=== PATIENT | female | born 1965 | race Caucasian/White ===

== ENCOUNTER 2022-04-22 12:33 | Emergency (ER) | payer MEDICAID, SELFPAY ==
[2022-04-22 12:48] VITALS: BP 137/90; PULSE 92; RESP 16; TEMP 36.1; O2SAT 92; BMI 39.7
--- NOTE | 2022-04-22 13:52 | ED_ITS ---
HPI - General Adult General Date Seen: 04/22/22 Chief complaint: Ear/Nose/Throat Problem Stated complaint: Foreign object left ear Time Seen by Provider: 04/22/22 12:54 Source: patient History of Present Illness HPI narrative: Patient is a 56-year-old woman who comes in because of concerns about a retained Q-tip in her left ear. She says she had drainage from the left ear so she was using a Q-tip to clean it out. She felt that the cotton tip of the Q-tip was retained in the ear canal. Her was unable to visualize it or remove it so she presents to have it removed. She says that her left ear has been bothering her for the past couple of weeks, it has felt swollen and uncomfortable, to the point that she has not even been able to put an ear plug in. She has noted some itching as well. No fevers. Related Data Home Medications Medication Instructions Recorded Confirmed aripiprazole 5 mg tablet (Abilify) 5 mg PO DAILY 04/22/22 04/22/22 gabapentin 400 mg capsule 400 mg PO TID 04/22/22 04/22/22 liraglutide 0.6 mg/0.1 mL (18 mg/3 1.8 mg subcut DAILY 04/22/22 04/22/22 mL) subcutaneous pen injector (Connolly 2-Darius) lisinopril 20 mg tablet 10 mg PO DAILY 04/22/22 04/22/22 metformin 500 mg tablet 500 mg PO TID 04/22/22 04/22/22 omeprazole 20 mg capsule,delayed 20 mg PO DAILY 04/22/22 04/22/22 release ondansetron HCl 4 mg tablet 4 mg PO Q6-8H PRN 04/22/22 04/22/22 promethazine 12.5 mg tablet 6.25 mg PO TID PRN 04/22/22 04/22/22 rosuvastatin 10 mg tablet (Crestor) 10 mg PO DAILY 04/22/22 04/22/22 trazodone 50 mg tablet 50 mg PO QHS PRN 04/22/22 04/22/22 venlafaxine 150 mg 150 mg PO DAILY 04/22/22 04/22/22 capsule,extended release 24 hr (Effexor XR) Previous Rx's Medication Instructions Recorded ciprofloxacin 0.3 %-dexamethasone 4 drp otic (ear) BID 7 days #7.5 mL 04/22/22 0.1 % ear drops,suspension (Ciprodex) Allergies Allergy/AdvReac Type Severity Reaction Status Date / Time exenatide [From Bydureon] Allergy Severe Rash Verified 04/22/22 12:42 simvastatin Allergy Severe Hives Verified 04/22/22 12:42 Review of Systems Status of ROS: Reports: 6 or more systems reviewed and unremarkable except as noted in History and below PFSH PFS Social History Smoking Status: Never smoker Do you use any of these nicotine containing products: None How often do you have a drink containing alcohol: never AUDIT-C Alcohol total score: 0 Non-prescribed substance use: denies use service: No Exam Narrative: Exam Narrative: Vital signs reviewed In general, an alert, nontoxic woman. Looks comfortable. Head: Normocephalic, atraumatic. Eyes: Sclera clear. ENT: On the left, the canal is somewhat narrowed, there is some dermatitis noted at the introitus with flaking, scaling skin. The canal itself is empty there is no foreign body. TM is normal. On the right, the canal looks slightly narrowed, the skin is normal. TM is normal. Skin: Warm dry, otherwise normal. Const: Vital Signs, click to edit/add: Vital Signs - 24 hr 04/22/22 12:48 Temperature 97.0 F L Pulse Rate [Pulse Oximeter] 92 Respiratory Rate 16 Blood Pressure [Le ft Upper Arm] 137/90 H Pulse Oximetry 92 Oxygen Delivery Me thod Room Air Documenting provider has reviewed patient's vital signs: yes Course Course Hospital Course: Reassured her that there is no evidence of foreign body. I did do a skin scraping of the scaly skin at the opening of the left external canal, ESVIN was negative for fungal elements. I am going to try treating her with Ciprodex for otitis externa to see if these symptoms improve. If not, ENT followup. Vital Signs Vital signs: Initial Vital Signs Temperature 97.0 F L 04/22/22 12:48 Temperature Source Temporal Artery Scan 04/22/22 12:48 Pulse Rate 92 04/22/22 12:48 Pulse Rhythm 04/22/22 12:48 Pulse Strength 3+ Normal 04/22/22 12:48 Respiratory Rate 16 04/22/22 12:48 Blood Pressure 137/90 H 04/22/22 12:48 Blood Pressure Mean 105 04/22/22 12:48 Blood Pressure Position Sitting 04/22/22 12:48 Pulse Oximetry 92 04/22/22 12:48 Oxygen Delivery Method 04/22/22 12:48 Vital Signs Temperature 97.0 F L 04/22/22 12:48 Pulse Rate 92 04/22/22 12:48 Respiratory Rate 16 04/22/22 12:48 Blood Pressure 137/90 H 04/22/22 12:48 Pulse Oximetry 92 04/22/22 12:48 Oxygen Delivery Method 04/22/22 12:48 Temperature 97.0 F L 04/22/22 12:48 Pulse Rate 92 04/22/22 12:48 Respiratory Rate 16 04/22/22 12:48 Blood Pressure 137/90 H 04/22/22 12:48 Pulse Oximetry 92 04/22/22 12:48 Oxygen Delivery Method 04/22/22 12:48 Medical Decision Making Lab Data Labs: Lab Results 04/22/22 Range/Units 13:22 ESVIN Result No Fungal Elements (None Seen) Discharge Plan Discharge Clinical Impression: Otitis externa Patient Disposition: Home, Self-Care Condition: Stable Instructions: Otitis Externa (DC) Additional Instructions: Ear drops as prescribed. If no improvement, ENT followup. No evidence of foreign body in the canal today. Prescriptions: New ciprofloxacin-dexamethasone [Ciprodex] 0.3-0.1 % drops,suspension 4 drp otic (ear) BID 7 Days Qty: 7.5 0RF No Action gabapentin 400 mg capsule 400 mg PO TID aripiprazole [Abilify] 5 mg tablet 5 mg PO DAILY venlafaxine [Effexor XR] 150 mg capsule,extended release 24hr 150 mg PO DAILY lisinopril 20 mg tablet 10 mg PO DAILY metformin 500 mg tablet 500 mg PO TID rosuvastatin [Crestor] 10 mg tablet 10 mg PO DAILY trazodone 50 mg tablet 50 mg PO QHS PRN omeprazole 20 mg capsule,delayed release(DR/EC) 20 mg PO DAILY ondansetron HCl 4 mg tablet 4 mg PO Q6-8H PRN promethazine 12.5 mg tablet 6.25 mg PO TID PRN Rx Instructions: 3 doses during day; last dose no later than 4 hr before bedtime Victoza 2-Darius 0.6 mg/0.1 mL (18 mg/3 mL) pen injector 1.8 mg subcut DAILY Stand Alone Forms: [employer] Info Instructions
--- NOTE | 2022-04-22 13:53 | PC.NURSE ---
Patient was discharged. [facility] [place] [facility]. Will follow up with ENT if not better. Patient had no further questions and left via ambulatory.
--- OUTSIDE RECORDS SUMMARY | 2022-04-22 13:57 | XMS_ITS | Encounter Summary ---
:1965 Author Organization [employer] Address [address] [place] [address] Care Team Providers Name Role Phone Sonia Pérez PA-C Primary Care Provider Reason for Visit Reason Comments Elbow Problem Encounter Details Date Type Department Care Team Description 02/09/2022 Telemedicine [facility] Sisi Calderon, Instability of left elbow jaylon int (Primary Dx); [address] [facility] OTR/L Aftercare following surgery [place], [place] [address] [address] [facility] [phone] [place] [address] (Wo rk) Social History Tobacco Use Types Packs/Day Years Used Date Smoking Tobacco: Never Smokeless Tobacco: Never Comments: Quit smoking: Alcohol Use Standard Drinks/Week Comments Yes 0 (1 standard drink = 0.6 oz pure Alcoho lic Drinks/day: Amount:1-2 alcohol) drinks; Freq:2-4/Tue ; Sex Assigned at Date Recorded Not on file documented as of this encounter Progress Notes Sisi Calderon OTR/[place] - 02/09/2022 3:00 PM CDT Erroneous Entry documented in this encounter Plan of Treatment Upcoming Encounters Date Type Specialty Care Team Description 06/15/2022 Appointment Orthopedics Vanna Ulloa MD [address] [place] [address] (Wo rk) documented as of this encounter Visit Diagnoses Diagnosis Instability of left elbow joint - Primar y Aftercare following surgery Encounter for other specified aftercare documented in this encounter Care Teams Art History Professor Relationship Specialty Start Date End Date Sonia Pérez PA-C PCP - General Physician Information Systems Security Officer 01/10/17 [address] [facility] [address] [place] [address] documented as of this encounter
--- OUTSIDE RECORDS SUMMARY | 2022-04-22 13:57 | XMS_ITS | Encounter Summary ---
:1965 Author Organization [facility] [facility] [employer] Address [address] [place] [address] Care Team Providers Name Role Phone Sonia Pérez PA-C Primary Care Provider Encounter Details Date Type Department Care Team Description 12/23/2021 Orders Only HIM DEPARTMENT Provider, Deysi [place] [address] Social History Tobacco Use Types Packs/Day Years Used Date Smoking Tobacco: Never Smokeless Tobacco: Never Comments: Quit smoking: Alcohol Use Standard Drinks/Week Comments Yes 0 (1 standard drink = 0.6 oz pure Alcoho lic Drinks/day: Amount:1-2 alcohol) drinks; Freq:- ; Sex Assigned at Date Recorded Not on file documented as of this encounter Plan of Treatment Upcoming Encounters Date Type Specialty Care Team Description 06/15/2022 Appointment Orthopedics Vanna Ulloa MD [address] [place], [place] [id number] (Wo rk) documented as of this encounter Procedures Procedure Name Priority Date/Time Associated Diagnosis Comme nts EKG 12/23/2021 Results for thi s procedure are in the resu lts section. documented in this encounter Results EKG (12/23/2021) Narrative This result has an attachment that is no t available. Interface Provider EKG documented in this encounter Visit Diagnoses Not on filedocumented in this encounter Additional Health Concerns Infection Onset Date Last Indicated Resolved Time COVID19 12/22/2021 12/22/2021 01/02/2022 3:17 AM CDT documented as of this encounter Care Teams Vascular Neurologist Relationship Specialty Start Date End Date Sonia Pérez PA-C PCP - General Physician Rn Peritoneal Dialysis 01/10/17 [address] [facility] [address] [place] [address] documented as of this encounter
--- OUTSIDE RECORDS SUMMARY | 2022-04-22 13:57 | XMS_ITS | Encounter Summary ---
:1965 Author Organization [facility] Address [address] [place] [address] Care Team Providers Name Role Phone Sonia Pérez PA-C Primary Care Provider Reason for Referral Therapies (Routine) - New Request Specialty Diagnoses / Procedures Referred By Contact Refer red To Contact Diagnoses Dislocation of left elbow, subsequent encounter Vanna Ulloa MD [address] [facility] [address] [place] [address] Referral ID Status Reason Start Date Expiration Date Visits V isits Requested Authorized [id number] New Request 12/29/2021 12/29/2022 1 1 Scheduling Instructions Your provider has recommended an appoint ment with [facility]. You can quickly make your appointment online at [email or web address]. You can also call [phone] for help scheduling yo ur appointment. We suggest you call your health insurance company about your cove rage and benefits for this appointment. Procedure/Equipment (Routine) - Incomplete Specialty Diagnoses / Procedures Referred By Contact Refer red To Contact Diagnoses Postop check Vanna Ulloa MD Procedures XR Elbow Lt 3+ Views [address] [facility] [place] [address] Referral ID Status Reason Start Date Expiration Date Visits V isits Requested Authorized [id number] Incomplete 12/29/2021 03/30/2023 1 1 Reason for Visit Reason Comments Post-Op Check Encounter Details Date Type Department Care Team Description 12/29/2021 Office Visit [facility] Vanna Ulloa MD Postop check (Primary Dx); CENTER [address] [place] [address] Dislocation of left elbow, subsequent en counter [address] [place], [place] [id number] (Wo rk) Social History Tobacco Use Types Packs/Day Years Used Date Smoking Tobacco: Never Smokeless Tobacco: Never Comments: Quit smoking: Alcohol Use Standard Drinks/Week Comments Yes 0 (1 standard drink = 0.6 oz pure Alcoho lic Drinks/day: Amount:1-2 alcohol) drinks; Freq:- ; Sex Assigned at Date Recorded Not on file documented as of this encounter Patient Instructions Patient InstructionsAnahi Ellison ATC - 12/29/2021 12:45 PM CDT Thank you for Choosing [facility] for your health care visit today. Dr. Yesenia Ulloa MD Hand & Upper Extremity Surgeon Follow up with [facility] in 7-10 days for suture removal - They will be calling you to schedule that. Medication Requests: Prescriptions are not filled on weekends or on weekdays after 3:00 PM. For all medication refills: Request a refill using [facility] [facility] or contact your pharmacy. What is Know Your Cost? Know Your Cost is a service for patients and patient/members to call and receive personalized cost information and estimates across our care group. The phone number is (COST) Tuesday - Tuesday 8 AM to 5 PM Advanced Imaging Scheduling: To schedule an MRI, Ultrasound, or Image guided injection at [facility] please call [phone]. To schedule an MRI or CT at a [facility] location please call [phone]. [facility] [employer] [address] [place] [address] (Phone) Email: [email or web address] Release of Information: Radiology/Imaging [address] [place] [address] (Phone) Health Information Management [address] [place] [address] (Phone) [employer] documented in this encounter Progress Notes Vanna Ulloa MD - 12/29/2021 12:00 AM CDT NAME: MARCELO BECK CSN: [id number] CLINIC NOTE DATE OF SERVICE: 12/29/2021 : 1965 HISTORY OF PRESENT ILLNESS: Marcelo is seen in routine followup a week after revision fixation of the left elbow dislocation. She says she has been doing well. Not having much pain. Eager to get moving. EXAM: Wound looks great. Stitches remain in place. Her elbow range seems to be a good 50-degree easyarc. There is a fairly minimal seroma or hematoma palpable underneath the skin, certainly improved from last time. X-RAY EXAMINATION: Three views of the left elbow show that the Boom, plate and [place] pin are all in place with no signs of uncoupling. [place] pin remains in appropriate alignment. Elbow joint is well located. PLAN: 1.I think she can start moving in her hinged elbow brace. If she is just at rest, I think locking itat 90 may be helpful. 2.She may remove the brace only for shower. 3.The brace will continue for 6 weeks. 4.She will need her stitches out in approximately a week to 10 days. So she does not have to travel here, we will ask that she get a nurse visit at her [facility] in [place] for this. 5.Hand Therapy today to start with range of motion exercises. We have also discussed not stressing that lateral ulnar collateral ligament repair by keeping the shoulder adducted and if she does abduct,must have her forearm supinated. 6.I will see her again in approximately 1 month for repeat x-rays and likely discontinuation of the hinged elbow brace. VANNA ULLOA MD DCB/AQS /[id number] cc:Sonia Pérez PA-C [address] [address] documented in this encounter Plan of Treatment Upcoming Encounters Date Type Specialty Care Team Description 06/15/2022 Appointment Orthopedics Vanna Ulloa MD [address] [place] [address] (Wo rk) Scheduled Referrals Name Type Priority Associated Diagnoses Order S chedule Hand Therapy Consult Referral Routine Dislocation of left elbow, Ordered: 12/29/2021 subsequent encounter documented as of this encounter Results XR Elbow Lt 3+ Views (12/29/2021 12:51 PM CDT) Anatomical Region Laterality Modality Upper Extremity, Elbow Digital Radiograp hy Specimen (Source) Anatomical Location Collection Method / Collectio n Time Received Time / Laterality Volume Narrative 01/07/2022 5:08 PM CDT Three views of the left elbow show that the Boom plate and [place] pin are all in place with no signs of uncoupling . [place] pin remains in appropriate alignment. ??Elbow joint is well located . ?? Vanna Ulloa MD RAD GD documented in this encounter Visit Diagnoses Diagnosis Postop check - Primary Follow-up examination, following unspeci fied surgery Dislocation of left elbow, subsequent en counter Postop check Follow-up examination, following unspeci fied surgery documented in this encounter Additional Health Concerns Infection Onset Date Last Indicated Resolved Time COVID19 12/22/2021 12/22/2021 01/02/2022 3:17 AM CDT documented as of this encounter Care Teams Implementation Manager Relationship Specialty Start Date End Date Sonia Pérez PA-C PCP - General Physician Stove Carriage Operator 01/10/[address] [place] [address] [address] [place] [address] documented as of this encounter
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
--- OUTSIDE RECORDS SUMMARY | 2022-04-22 13:57 | XMS_ITS | Encounter Summary ---
:1965 Author Organization [facility] Address [address] [place] [address] Care Team Providers Name Role Phone Sonia Pérez PA-C Primary Care Provider Reason for Visit Reason Comments Refill Medication Questions Encounter Details Date Type Department Care Team Description 12/24/2021 Telephone [facility] Vanna Kruse MD Refill; Medication [facility]ENTER [address] [place] [address] Dr Questions [address] [place], [place] [address] [phone] (Wo rk) Social History Tobacco Use Types Packs/Day Years Used Date Smoking Tobacco: Never Smokeless Tobacco: Never Comments: Quit smoking: Alcohol Use Standard Drinks/Week Comments Yes 0 (1 standard drink = 0.6 oz pure Alcoho lic Drinks/day: Amount:1-2 alcohol) drinks; Freq:- ; Sex Assigned at Date Recorded Not on file documented as of this encounter Nursing Notes Silvana Robertson RN - 12/25/2021 2:37 PM CDT PA completed. Medication is approved. Pt informed she can picker and packer medication from pharmacy. Fanta Singleton - 12/25/2021 12:35 PM CDT Has the patient recently had surgery or an injury? Yes. Date of Surgery: December 23, 2021 Type of Surgery: Left revision FIXATION ELBOW dislocation Patient is calling in follow up to message left on 12/24/21 regarding a refill for her hydrocodone-acetaminophen. She was told by her pharmacy that a PA will be needed to get the prescriptions filled. She is requesting a call back to see if that has been completed and if she will be able to get the medication today. She is out of medication and is concerned about having to go through the weekend without it. Maddie Fields - 12/24/2021 9:30 AM CDT Has the patient recently had surgery or an injury? Yes. Date of Surgery: December 23, 2021 Type of Surgery: revision FIXATION ELBOW dislocation (Left: Elbow) How may we help you today? Patient is calling stating that their INS needs a PA for the Hydrocodone before pt is able to picker and packer prescription / please advise Is it okay to leave detailed message on your voicemail? Yes [Manufacturing Process Engineer/Appt Center: If this call is after 3 p.m., communicate to patient: If we are not able to get back to you by the end of the day and your symptoms worsen please contact the Careline] documented in this encounter Plan of Treatment Upcoming Encounters Date Type Specialty Care Team Description 06/15/2022 Appointment Orthopedics Vanna Ulloa MD [address] [facility] [place] [address] (Wo rk) documented as of this encounter Visit Diagnoses Not on filedocumented in this encounter Additional Health Concerns Infection Onset Date Last Indicated Resolved Time COVID19 12/22/2021 12/22/2021 01/02/2022 3:17 AM CDT documented as of this encounter Care Teams Asic Verification Engineer Relationship Specialty Start Date End Date Sonia Pérez PA-C PCP - General Physician Blueprinter 01/10/17 [address] [facility] [address] [place] [address] documented as of this encounter
--- OUTSIDE RECORDS SUMMARY | 2022-04-22 13:57 | XMS_ITS | Encounter Summary ---
:1965 Author Organization [facility] Address [address] [place] [address] Care Team Providers Name Role Phone Sonia Pérez PA-C Primary Care Provider Reason for Visit Reason Comments Elbow Problem Encounter Details Date Type Department Care Team Description 02/23/2022 Telemedicine [facility] Sisi Calderon, Instability of left elbow jaylon int (Primary Dx); [address] [facility] OTR/L Aftercare following surgery [place], [place] [address] [address] [facility] [phone] [place] [address] (Wo rk) Social History Tobacco Use Types Packs/Day Years Used Date Smoking Tobacco: Never Smokeless Tobacco: Never Comments: Quit smoking: Alcohol Use Standard Drinks/Week Comments Yes 0 (1 standard drink = 0.6 oz pure Alcoho lic Drinks/day: Amount:1-2 alcohol) drinks; Freq:2- ; Sex Assigned at Date Recorded Not on file documented as of this encounter Progress Notes Sisi Calderon, OTR/L - 02/23/2022 1:00 PM CDT [facility] Telehealth Progress Note This encounter was completed via telehealth/video per patient request as certain health care needs can be provided without an in-person physical exam. Their hand/occupational therapist will provide further instructions and programming notes via Chroma, an online education and home exercise program platform, [employer], or [employer]. Time service began: 1:08 pm Time service ended: 1:26 pm Patient location: home, backyard Provider location: clinic Mode of transmission: Fancred Education/Handouts: Liz Phelps was provided with a summary of recommendations stemming from this telehealth visit, as well as further instructions and home exercises. Referring Provider: Dr. Ulloa Referring Diagnosis: No diagnosis found. (Left coronoid fracture, left lateral ulnar collateral ligament tear) New orders 01/26/2022: A/PROM, strengthening; d/c hinge brace; OK to start finger and wrist strengthening, 1 pound elbow curls if desired. OK to get into pool for walking NEW ORDERS: (12/29/2021) Hinged brace - okay [...] Patient has a past medical history of Anxiety, Cataract (06/09/2020), Controlled type 2 diabetes mellitus without complication, with long-term current use of insulin (HRC), Depression, Gastroesophagealreflux disease, Hypertension, Irritable bowel syndrome, Migraine, unspecified, without mention [...] to no difficulty in 90 days SUBJECTIVE: 2 months out from revision. Pt states she does exercises 2 times per day. Pt prefers video visits. OBJECTIVE: Pain: mild at rest, moderate with elbow motion. Edema: mild-moderate in digits, wrist/forearm; moderate at elbow AROM: Elbow AROM Right 01/26/2022 Left 12/29/2021 Left 01/05/2022 (measured on computer screen with goniometer) Left 01/12/22 L 01/21/2022 (over video at not a good angle) Left 01/26/2022 In person L 02/23/2022 (via video) Extension/Flexion NT 45/90 50/100 41/96 45/130 36/107 45/125 Supination/Pronation 73/82 Near normal supination /NO pronation allowed. WNL/Not assessed WNL/Not assessed WNL/NT 65/60 NT Near full fist with feeling of tightness. Same for finger extension. Strength: Deferred Sensation: Reported intact Scar: mildly tender, flat, but adherent at central portion TODAY'S TREATMENT INTERVENTION: Therapeutic Exercise CPT 42391 (18 minutes): Reviewed use arm for light daily function. Reviewed, performed and corrected technique for current HEP; Reviewed AROM and PROM and had pt demonstrate exercises, provided cuing and feedback to improve technique. Timed Code Treatment Minutes: 18 Total Treatment Minutes: 18 ASSESSMENT: Pt making minimal progress with video visits. PLAN: Recheck after MD 03/09/22 Pt prefers video visits. Recheck weekly; will see in clinic again in 4 weeks when she returns to seeMD Plan for Next Treatment: Hot pack if arrives early as instructed, 3 point elbow extension splint forsleeping, manual therapy, measure motion, and strengthening as tolerated. monitor motion, review HEPand add options for PROM extension (tablet/watll stretches) as pain allows Frequency/Duration: 1 x week Planned Intervention: AROM, PROM, strength, home exercise program, scar management, edema control, diagnosis education, soft tissue mobilization, modalities: as beneficial, splint/orthosis, adjust patient's splint/orthosis as needed Therapist Signature: Sisi Calderon MOTR/Gina CHT #[id number] Visit # 9 Payor: [facility] / Plan: [facility] PMAP / Product Type: Medicaid / documented in this encounter Plan of Treatment Upcoming Encounters Date Type Specialty Care Team Description 06/15/2022 Appointment Orthopedics Vanna Ulloa MD [address] [facility] [place] [address] (Wo rk) documented as of this encounter Visit Diagnoses Diagnosis Instability of left elbow joint - Primar y Aftercare following surgery Encounter for other specified aftercare documented in this encounter Care Teams Research Management Associate Relationship Specialty Start Date End Date Sonia Pérez PA-C PCP - General Physician Agile Test Lead 01/10/17 16[address] [facility] [address] [place] [id number] documented as of this encounter
--- OUTSIDE RECORDS SUMMARY | 2022-04-22 13:57 | XMS_ITS | Encounter Summary ---
:1965 Author Organization [facility] Address [address] [place] [address] Care Team Providers Name Role Phone Sonia Pérez PA-C Primary Care Provider Reason for Referral Therapies (Routine) - New Request Specialty Diagnoses / Procedures Referred By Contact Refer red To Contact Diagnoses Closed fracture of distal end of left fibula with routine healing, unspecified fracture morphology, subsequent encounter Latanya Wilson MD [address] [facility] [place] [address] Referral ID Status Reason Start Date Expiration Date Visits V isits Requested Authorized [id number] New Request 01/12/2022 01/12/2023 999 999 Scheduling Instructions Your provider has recommended an appoint ment with [facility]. You can quickly make your appointment online at AppwoRx/schedule. You can also call [phone] for help scheduling yo ur appointment. We suggest you call your health insurance company about your cove rage and benefits for this appointment. Procedure/Equipment (Routine) - Incomplete Specialty Diagnoses / Procedures Referred By Contact Refer red To Contact Diagnoses Closed fracture of distal end of left fibula with routine healing, unspecified fracture morphology, subsequent encounter Latanya Wilson MD Procedures XR Ankle Lt 3 Views [facility] [facility] [place] [address] Referral ID Status Reason Start Date Expiration Date Visits V isits Requested Authorized [id number] Incomplete 01/12/2022 04/13/2023 1 1 Reason for Visit Reason Comments Follow-up Left ankle Encounter Details Date Type Department Care Team Description 01/12/2022 Office Visit [facility]opedic Latanya Wilson, Closed fracture of Urgent Care MD distal end of left [address] [facility] [address] [facility] [address] eisenberg with routine [place], [place] [address] [place], [place] healing, unspecified [phone] fracture morphology, (Wo rk) subsequent encounter (Primary Dx) Social History Tobacco Use Types Packs/Day Years Used Date Smoking Tobacco: Never Smokeless Tobacco: Never Comments: Quit smoking: Alcohol Use Standard Drinks/Week Comments Yes 0 (1 standard drink = 0.6 oz pure Alcoho lic Drinks/day: Amount:1-2 alcohol) drinks; Freq:- ; Sex Assigned at Date Recorded Not on file documented as of this encounter Last Filed Vital Signs Vital Sign Reading Time Taken Comments Blood Pressure - - Pulse - - Temperature 36 ??C (96.8 ??F) 01/12/2022 12:06 PM CDT Respiratory Rate - - Oxygen Saturation - - Inhaled Oxygen Concentration - - Weight - - Height - - Body Mass Index - - documented in this encounter Patient Instructions Patient InstructionsAlthea Shields - 01/12/2022 12:[address] Latanya Wilson MD Sports & Orthopaedic Medicine [facility] [place] [facility] Nurse Line: [phone] Please contact Orthopedic Urgent Care line for all requests and questions. Medication Requests: Prescriptions are not filled on Weekends or on Weekdays after 3:00PM For all medication refills: Request a refill using MyChart or contact your Pharmacy To schedule appointments: [phone] Paperwork Requests: FMLA or disability paperwork can be faxed to: [phone] Medical records: [phone] (option 4) [facility] Worker's Compensation Services E-mail Address: [email or web address] Left distal fibula fracture - Discontinue boot - Brace - Physical Therapy documented in this encounter Progress Notes Latanya Wilson MD - 01/12/2022 12:00 AM CDT NAME: MARCELO BECK CSN: [id number] CLINIC NOTE DATE OF SERVICE: 01/12/2022 : 1965 Marcelo Beck here for followup of her distal fibular fracture. Was last seen by myself on 12/22/2021, and has been in a boot. She denies any pain since our last visit. OBJECTIVE: Left ankle nontender to palpation. Mild lateral swelling, plantar and dorsiflexion, inversion, eversion without pain. Left ankle x-rays independently reviewed, show further fracture healing seen at thedistal fibular fracture. Ankle mortise intact. ASSESSMENT: Left distal fibular fracture 9 weeks status post injury with clinical and radiographic healing. PLAN: We will discontinue the boot. She has an upcoming vacation and so we will have her use an ankle brace for support during that time. I encouraged physical therapy for strength and range of motion going forward. She will follow up as needed. LATANYA WILSON MD SAB/AQS /[id number] documented in this encounter Plan of Treatment Upcoming Encounters Date Type Specialty Care Team Description 06/15/2022 Appointment Orthopedics Vanna Ulloa MD [address] [place] [address] (Wo rk) Scheduled Referrals Name Type Priority Associated Diagnoses Order S chedule Physical Therapy Referral Routine Closed fracture of dista l end Ordered: 01/12/2022 of left fibula with routine healing, unspecified fractur e morphology, subsequent encounter documented as of this encounter Results XR Ankle Lt 3 Views (01/12/2022 12:13 PM CDT) Anatomical Region Laterality Modality Lower Extremity, Ankle, Foot & Ankle Dig ital Radiography Specimen (Source) Anatomical Collection Method Collection Time Re ceived Time Location / / Volume Laterality 01/12/2022 12:05 PM CDT Impressions 01/12/2022 12:29 PM CDT COMPARISON: ??12/22/2021 FINDINGS: ??Left ankle 3 views. There is a healing comminuted intra-articular fracture of the distal fibula which is in stable position and alignment. Callus formation is increased. No new fractures are visualized. The ankle mortise is symmet shell. Remainder of the findings are not significantly changed. Procedure Note Travis Trivedi MD - 01/12/2022Formatti ng of this note might be different from the original. IMPRESSION COMPARISON: 12/22/2021 FINDINGS: Left ankle 3 views. There is a healing comminuted intra-articular fracture of the distal fibula which is in stable position and alignment. Callus formation is increased. No new fractures are visualized. The ankle mortise is symmetr ic. Remainder of the findings are not significantly changed. Latanya Wilson MD RAD GD documented in this encounter Visit Diagnoses Diagnosis Closed fracture of distal end of left fi bula with routine healing, unspecified fracture morphology, subsequent encounte r - Primary Closed fracture of distal end of left fi bula with routine healing, unspecified fracture morphology, subsequent encounte r documented in this encounter Care Teams Leasing Manager Relationship Specialty Start Date End Date Sonia Pérez PA-C PCP - General Physician Health Counselor 01/10/17 16[address] [facility] [address] [place] [address] documented as of this encounter
--- OUTSIDE RECORDS SUMMARY | 2022-04-22 13:57 | XMS_ITS | Encounter Summary ---
:1965 Author Organization [facility] Address [address] [place] [address] Care Team Providers Name Role Phone Sonia Pérez PA-C Primary Care Provider Reason for Visit Reason Comments Elbow Problem Encounter Details Date Type Department Care Team Description 01/05/2022 Telemedicine [facility] Kolby Strange, Aftercare following surgery (Primary Dx); [facility] Instability of left elbow joint [place], [place] [address] [address] [facility] [phone] [place] [address] (Wo rk) Social History Tobacco Use Types Packs/Day Years Used Date Smoking Tobacco: Never Smokeless Tobacco: Never Comments: Quit smoking: Alcohol Use Standard Drinks/Week Comments Yes 0 (1 standard drink = 0.6 oz pure Alcoho lic Drinks/day: Amount:1-2 alcohol) drinks; Freq:2- ; Sex Assigned at Date Recorded Not on file documented as of this encounter Progress Notes Kolby Strange, OTR/L - 01/05/2022 2:00 PM CDT Hand Occupational Therapy Video Visit/Progress Note Insurance: Payor: [employer] / Plan: CARE PMAP / Product Type: Medicaid / Referring Provider: Referring Diagnosis: 1. Aftercare following surgery 2. Instability of left elbow joint (Left coronoid fracture, left lateral ulnar collateral [...] no difficulty in 90 days SUBJECTIVE: Pt was seen today for hand therapy follow up via video visit, per her request. Patient is 13 days s/p surgery. She reports removing HEB only for bathing and reports compliance with her HEP of AROM in her HEB. She does report that brace is limiting her elbow flexion and she feels like she cannot flex any further (than ~100 degrees) when in HEB. OBJECTIVE: Pain: None reported today. Edema: Digits through the elbow after revision has moderate plus edema. Circumferential Measurement: (in cm) Date 12/04/21 12/04/21 Right Left 2 in. proximal.to elbow 34 34.0 Elbow crease 29 33.0 2 in. distal to elbow 30 33.0 AROM: Elbow AROM Right 12/29/2021 Left 12/29/2021 Left 01/05/2022 (measured on computer screen with goniometer) Extension/Flexion NT 45/90 50/100 Supination/Pronation NT Near normal supination /NO pronation allowed. WNL/Not assessed (NO pronationper MD) Near full fist with feeling of tightness. Same for finger extension. Thumb opposition at this time is to tip of small with effort. Strength: Deferred Sensation: Reported intact Wound/Incision: Sutures still present, pt to see RN near her home for suture removal 01/07/2022 Scar: to be assessed TODAY'S TREATMENT INTERVENTION: Therapeutic Exercise CPT 20729 (25 minutes): New objective measures taken, see above. [...] no shoulder abduction and no forearm pronation. Splint/Orthotic Fabrication: Left: elbow ossur hinged elbow orthosis (size universal with adjustments). Wearing will be per MD's specification (see orders above) . Timed Code Treatment Minutes: 25 Total Treatment Minutes: 25 ASSESSMENT: - patient demonstrated a good understanding [...] barriers to learning. PLAN: Prefers video visits, but will be seen in clinic for visit next week due to having MD appt here at [facility]. Plan for Next Treatment: assess response to treatment, check AROM, soft tissue mobilization, add scar management, edema control, review home exercise program, check splint/orthosis fit, review AROM forelbow flext/ext out of HEB. Frequency/Duration: 1 x [...] with any questions or concerns. Therapist Signature: JENNYFER Liriano, OTR/L #[id number] Visit # 4 [facility] / Plan: [facility] PMAP / Product Type: Medicaid / documented in this encounter Plan of Treatment Upcoming Encounters Date Type Specialty Care Team Description 06/15/2022 Appointment Orthopedics Vanna Ulloa MD [address] [place], [place] [address] (Wo rk) documented as of this encounter Visit Diagnoses Diagnosis Aftercare following surgery - Primary Encounter for other specified aftercare Instability of left elbow joint documented in this encounter Care Teams Nurse Midwife Relationship Specialty Start Date End Date Sonia Pérez PA-C PCP - General Physician Audiometrist 01/10/17 1601 [facility] [address] [place] [address] documented as of this encounter
--- OUTSIDE RECORDS SUMMARY | 2022-04-22 13:57 | XMS_ITS | Encounter Summary ---
:1965 Author Organization [facility] Address [address] [place] [address] Care Team Providers Name Role Phone Sonia Pérez PA-C Primary Care Provider Reason for Visit Procedure/Equipment (Routine) - Incomplete Specialty Diagnoses / Procedures Referred By Contact Refer red To Contact Diagnoses Postop check Vanna Ulloa MD Procedures XR Elbow Lt 3+ Views [address] [facility] [place] [address] 1 Referral ID Status Reason Start Date Expiration Date Visits V isits Requested Authorized [id number] Incomplete 12/29/2021 03/30/2023 1 1 Encounter Details Date Type Department Care Team Description 12/29/2021 Ancillary Procedure [facility] Radiology Vanna Ulloa MD Postop check [address] [facility] [address] [facility] [place] [address] [place] [phone] (Wo rk) Social History Tobacco Use Types [...] 06/15/2022 Appointment Orthopedics Vanna Ulloa MD [address] [facility] [place] [address] (Wo rk) documented as of this encounter Procedures Procedure Name Priority Date/Time Associated Diagnosis Comme nts XR ELBOW LT 3+ Routine 12/29/2021 12:51 PM Postop check Result s for this VIEWS CDT procedure are i n the results section. documented in this encounter Results XR Elbow Lt 3+ Views (12/29/2021 12:51 PM CDT) Anatomical Region Laterality Modality Upper Extremity, Elbow Digital Radiograp hy Specimen (Source) Anatomical Location Collection Method / Collectio n Time Received Time / Laterality Volume Narrative 01/07/2022 5:08 PM CDT Three views of the left elbow show that the Boom plate and [place] pin are all in place with no signs of uncoupling . [place] pin remains in appropriate alignment. ??Elbow joint is well located . ?? Vanna Ulloa MD RAD GD documented in this encounter Visit Diagnoses Diagnosis Postop check Follow-up examination, following unspeci fied surgery documented in this encounter Additional Health Concerns Infection Onset Date Last Indicated Resolved Time COVID19 12/22/2021 12/22/2021 01/02/2022 3:17 AM CDT documented as of this encounter Care Teams Machine Heel Sprayer Relationship Specialty Start Date End Date Sonia Pérez PA-C PCP - General Physician Elevator Installer 01/10/17 [address] [facility] [address] [place] [address] documented as of this encounter
--- OUTSIDE RECORDS SUMMARY | 2022-04-22 13:57 | XMS_ITS | Encounter Summary ---
:1965 Author Organization [facility] Address [address] [place] [address] Care Team Providers Name Role Phone Sonia Pérez PA-C Primary Care Provider Reason for Visit Reason Comments Elbow Problem Encounter Details Date Type Department Care Team Description 02/10/2022 Telemedicine [facility] Sisi Calderon, Instability of left elbow jaylon int (Primary Dx); [address] [facility] OTR/L Aftercare following surgery [place], [place] [address] 8100 [facility] [phone] [place] [address] (Wo rk) Social History Tobacco Use Types Packs/Day Years Used Date Smoking Tobacco: Never Smokeless Tobacco: Never Comments: Quit smoking: Alcohol Use Standard Drinks/Week Comments Yes 0 (1 standard drink = 0.6 oz pure Alcoho lic Drinks/day: Amount:1-2 alcohol) drinks; Freq:- ; Sex Assigned at Date Recorded Not on file documented as of this encounter Progress Notes Sisi Calderon, OTR/L - 02/10/2022 3:30 PM CDT [facility] Occupational Therapy Telehealth Progress Note This encounter was completed via telehealth/video per patient request as certain health care needs can be provided without an in-person physical exam. Their hand/occupational therapist will provide further instructions and programming notes via [employer], an online education and home exercise program platform, [employer], or [employer]. Time service began: 3:34 pm Time service ended: 3:46 pm Patient location: home, backyard Provider location: clinic Mode of transmission: Web[employer] Education/Handouts: Liz Phelps was provided with a [...] to no difficulty in 90 days SUBJECTIVE: 6 weeks out from revision. Pt states she can wash her hair and has trouble donning a bra. OBJECTIVE: Pain: mild at rest, moderate with elbow motion. Edema: mild-moderate in digits, wrist/forearm; moderate at elbow AROM: Elbow AROM Right 01/26/2022 Left 12/29/2021 Left 01/05/2022 (measured on computer screen with goniometer) Left 01/12/22 L 01/21/2022 (over video at not a good angle) Left 01/26/2022 In person Extension/Flexion NT 45/90 50/100 41/96 45/130 36/107 Supination/Pronation 73/82 Near normal supination /NO pronation allowed. WNL/Not assessed WNL/Not assessed WNL/NT 65/60 Near full fist with feeling of tightness. Same for finger extension. Strength: Deferred Sensation: Reported intact Scar: mildly tender, flat, but adherent at central portion TODAY'S TREATMENT INTERVENTION: Therapeutic Exercise CPT 39343 (11 minutes): Reviewed use arm for light daily function. Reviewed, performed and corrected technique for current HEP; Instructed in and performed full AROM for pronation, as well as combined elbow extension and pronation; reviewed PROM for elbow flexion & extension; gravity- assisted positioning for gentle prolonged extension stretches. Reviewed scar cares. Timed Code Treatment Minutes: 11 Total Treatment Minutes: 11 ASSESSMENT: Limited ability to measure and correct HEP over video, but able to discuss progression of activities. PLAN: Pt prefers video visits. Recheck weekly; will see in clinic again in 4 weeks when she returns to see MD Plan for Next Treatment: monitor motion, review HEP and add options for PROM extension (tablet/watllstretches) as pain allows Frequency/Duration: 1 x week Planned Intervention: AROM, PROM, strength, home exercise program, scar management, edema control, diagnosis education, soft tissue mobilization, modalities: as beneficial, splint/orthosis, adjust patient's splint/orthosis as needed Therapist Signature: ANAY Woods/Gina CHT #[id number] Visit # 8 [facility] / Plan: CARE PMAP / Product Type: Medicaid / documented in this encounter Plan of Treatment Upcoming Encounters Date Type Specialty Care Team Description 06/15/2022 Appointment Orthopedics Vanna Ulloa MD [address] [facility] [place] [address] (Wo rk) documented as of this encounter Visit Diagnoses Diagnosis Instability of left elbow joint - Primar y Aftercare following surgery Encounter for other specified aftercare documented in this encounter Care Teams Video Systems Engineer Relationship Specialty Start Date End Date Sonia Pérez PA-C PCP - General Physician Hair Dryer 01/10/17 1601 [facility] [address] [place] [address] documented as of this encounter
--- OUTSIDE RECORDS SUMMARY | 2022-04-22 13:57 | XMS_ITS | Encounter Summary ---
:1965 [facility] Address [address] [place] [address] Care Team Providers Name Role Phone Sonia Pérez PA-C Primary Care Provider Reason for Visit Procedure/Equipment (Routine) - Incomplete Specialty Diagnoses / Procedures Referred By Contact Refer red To Contact Diagnoses Closed fracture of distal end of left fibula with routine healing, unspecified fracture morphology, subsequent encounter Cain Albrecht MD Procedures XR Ankle Lt 3 Views [address] [facility] [address] [place] [address] Referral ID Status Reason Start Date Expiration Date Visits V isits Requested Authorized [id number] Incomplete 01/12/2022 04/13/2023 1 1 Encounter Details Date Type Department Care Team Description 01/12/2022 Ancillary [facility] Cain Albrecht, Closed fracture of Procedure [address] distal end of left [address] [facility] [address] with routine [place] [facility], [address] unspecified [phone] fracture (Work) morphology, subsequen t encounter Social History Tobacco Use Types Packs/Day Years [...] 06/15/2022 Appointment Orthopedics Vanna Ulloa MD 8[address] [facility] [place] [address] (Wo rk) documented as of this encounter Procedures Procedure Name Priority Date/Time Associated Diagnosis Comme nts XR ANKLE LT 3 VIEWS Routine 01/12/2022 12:13 PM Closed fractur e of Results for this CDT distal end of left procedure are in fibula with routine the resu lts healing, unspecified section . fracture morphology, subsequent encounter documented in this encounter Results XR Ankle Lt 3 [...] of the findings are not significantly changed. Cain Albrecht MD RAD GD documented in this encounter Visit Diagnoses Diagnosis Closed fracture of distal end of left fi bula with routine healing, unspecified fracture morphology, subsequent encounte r documented in this encounter Care Teams Clinical Trial Data Manager Relationship Specialty Start Date End Date Sonia Pérez PA-C PCP - General Physician Heating Mechanic 01/10/17 1601 [facility] [address] [place] [address] documented as of this encounter
--- OUTSIDE RECORDS SUMMARY | 2022-04-22 13:57 | XMS_ITS | Encounter Summary ---
:1965 Author Organization [facility] Address [address] [place] [address] Care Team Providers Name Role Phone Sonia Pérez PA-C Primary Care Provider Reason for Visit Procedure/Equipment (Routine) - Incomplete Specialty Diagnoses / Procedures Referred By Contact Refer red To Contact Diagnoses Surgery, elective Vanna Ulloa MD Procedures CLYDE Fluoroscopy Up To 1 Hour [address] [place], [place] [address] Referral ID Status Reason Start Date Expiration Date Visits V isits Requested Authorized [id number] Incomplete 12/22/2021 03/23/2023 1 1 Encounter Details Date Type Department Care Team Description 12/23/2021 Ancillary Procedure [facility] Vanna Ulloa S urgery, elective Surgery Center 8[address] [facility] [address] [place] [address] [phone] Social History Tobacco Use Types Packs/Day Years [...] 06/15/2022 Appointment Orthopedics Vanna Ulloa MD [address] [facility] [place] [address] (Wo rk) documented as of this encounter Procedures Procedure Name Priority Date/Time Associated Comments Diagnosis CLYDE FLUOROSCOPY UP TO Routine 12/23/2021 1:53 PM Surgery, elec tive Results for this 1 HOUR CDT procedure are i n the results section. documented in this encounter Results CLYDE Fluoroscopy Up To 1 Hour (12/23/2021 1:53 PM CDT) Anatomical Region Laterality Modality Radiographic Imaging Specimen (Source) Anatomical Location Collection Method / Collectio n Time Received Time / Laterality Volume Narrative 12/23/2021 1:54 PM CDT These images were obtained during a surg ical procedure. Vnana Ulloa MD RAD NON-REPORTABLES documented in this encounter Visit Diagnoses Diagnosis Surgery, elective Unspecified elective surgery for purpose s other than remedying health states documented in this encounter Additional Health Concerns Infection Onset Date Last Indicated Resolved Time COVID19 12/22/2021 12/22/2021 01/02/2022 3:17 AM CDT documented as of this encounter Care Teams Headliner Installer Relationship Specialty Start Date End Date Sonia Pérez PA-C PCP - General Physician Aquatic Physiotherapist 01/10/17 1601 [facility] [address] [place] [address] documented as of this encounter
--- OUTSIDE RECORDS SUMMARY | 2022-04-22 13:57 | XMS_ITS | Encounter Summary ---
:1965 Author Organization [facility] Address [address] [place] [address] Care Team Providers Name Role Phone Sonia Pérez PA-C Primary Care Provider Reason for Visit (Routine) - Incomplete Specialty Diagnoses / Procedures Referred By Contact Refer red To Contact Procedures Gwyn Padilla MD US Anesthesia Guided Block [address] [address] [place] [address] Referral ID Status Reason Start Date Expiration Date Visits V isits Requested Authorized [id number] Incomplete 12/23/2021 03/24/2023 1 1 Encounter Details Date Type Department Care Team Description 12/23/2021 Ancillary Procedure [facility] [address] [place] [address] Social History Tobacco Use Types Packs/Day Years Used Date Smoking Tobacco: Never Smokeless Tobacco: Never Comments: Quit smoking: Alcohol Use Standard Drinks/Week Comments Yes 0 (1 standard drink = 0.6 oz pure Alcoho lic Drinks/day: Amount:1-2 alcohol) drinks; Freq:2-/Tue ; Sex Assigned at Date Recorded Not on file documented as of this encounter Plan of Treatment Upcoming Encounters Date Type Specialty Care Team Description 06/15/2022 Appointment Orthopedics Vanna Ulloa MD [address] [place], [place] [address] (Wo rk) documented as of this encounter Procedures Procedure Name Priority Date/Time Associated Comments Diagnosis US ANESTHESIA GUIDED STAT 12/23/2021 10:17 AM Results for this BLOCK CDT procedure are i n the results section. documented in this encounter Results US Anesthesia Guided Block (12/23/2021 10:17 AM CDT) Anatomical Region Laterality Modality Ultrasound Specimen (Source) Anatomical Location Collection Method / Collectio n Time Received Time / Laterality Volume Narrative 12/23/2021 10:17 AM CDT If an Anesthesia block was performed please see the Anesthesia encounter for documentation. ??This procedure was performed and interpreted by the performing provider. ?? Gwyn Padilla MD [facility] US documented in this encounter Visit Diagnoses Not on filedocumented in this encounter Additional Health Concerns Infection Onset Date Last Indicated Resolved Time COVID19 12/22/2021 12/22/2021 01/02/2022 3:17 AM CDT documented as of this encounter Care Teams Director Of Psychiatry Relationship Specialty Start Date End Date Sonia Pérez PA-C PCP - General Physician Dye Operator 01/10/[address] [address] documented as of this encounter
--- OUTSIDE RECORDS SUMMARY | 2022-04-22 13:57 | XMS_ITS | Clinical Summary ---
:1965 Author Organization [facility] Address [address] [place] [address] Care Team Providers Name Role Phone Sonia Pérez PA-C Primary Care Provider Source Comments You are receiving this document as you are listed as the primary care provider,follow-up provider, or the patient has been referred to you for consultation.This is in compliance with the Medicare and Medicaid EHR Incentive Program,which states Providers who transition their patient to another setting of careor provider of care or refers their patient to another provider of care shouldprovide summarycare record for each transition of care or referral. [place] Allergies Active Allergy Reactions Severity Noted Date Comments Atorvastatin 09/22/2016 Other reaction( s): Myalgia Hydromorphone Other, see comments 12/11/2021 Nausea/ Vomiting. Pt stated was admitted to hospital after taking Di laudid due to uncontrollab le N/V Dulaglutide Gastrointestinal, 11/20/2018 Nausea Exenatide Other, see comments Medium 08/04/2015 PN: loca l site reaction of skin breakdown, severe itching, and pa in. Medications Medication Sig Dispensed Refills Start Date End Date Status omeprazole ([facility] Take 1 tablet by 90 3 08/18/2010 Active OMEPRAZOLE) 20 MG mouth daily (every enteric coated tablet 24 hours). LW Comment:flex spending account LW Addl Instr:Indicated for: Acid Reflux Multiple Take 1 tablet by 100 0 04/25/2009 Ac tive Vitamins-Minerals mouth daily (every (MULTIVITAMIN OR) 24 hours). omega-3 fatty acids daily (every 24 0 04/25/2009 Active (MAXEPA,FISHOIL) 1000 hours). MG capsule aspirin EC 81 MG Take 1 tablet by 100 tablet 13 05/07/2013 Active enteric coated mouth daily (every tabletIndications: 24 hours). Chronic rhinitis blood glucose test Use 1 strip as 100 strip 6 12/02/2014 Active stripIndications: instructed 3 times Diabetes type 2, daily. uncontrolled lancets (ACCU-CHEK Use as instructed 3 100 each 0 12/03/2014 Active SOFTCLIX) times daily. ACCU-CHEK FARTUN PLUS Use as instructed 1 kit 0 12/03/2014 Active meter as needed for High Blood Sugar. cyclobenzaprine Take 1 tablet by 30 tablet 0 11/24/2015 Active (FLEXERIL) 5 MG mouth 3 times daily tabletIndications: as needed for Rib contusion, right, Muscle spasms. initial encounter metFORMIN (GLUCOPHAGE Take 3 tablets by 270 tablet 1 6 Active XR) 500 MG 24 hour mouth daily (every release 24 hours). tabletIndications: Type 2 diabetes mellitus, controlled (HRC) dulaglutide Inject 1 Pen 10 Pen 0 02/03/2016 Acti ve (TRULICITY) 0.75 subcutaneously once MG/0.5ML injection a week. penIndications: Type 2 diabetes mellitus, controlled (HRC) gabapentin Take 400 mg in the 270 Cap 3 03/15/2016 Active (NEURONTIN) 400 MG morning and 800 mg capsuleIndications: in the evening. Peripheral polyneuropathy TRULICITY 0.75 INJECT 0.75MG 2 mL 2 05/06/2016 Active MG/0.5ML SOPN SUBCUTANEOUSLY ONCE A WEEK lisinopril (ZESTRIL) TAKE 1 TABLET BY 90 Tab 1 07/10/2016 Active 20 MG tablet MOUTH EVERY DAY insulin pen needle Inject 200 Each 3 07/21/2016 Active (BD PEN NEEDLE JUHI subcutaneously two U/F) 32G X 4 MM times a day. ACCU-CHEK FARTUN PLUS Use to test three 300 Strip 3 08/03/2016 Active test strip times daily before meals. Code E11.9 DULoxetine (CYMBALTA) Take 30 mg by 0 10/13/2016 Active 30 MG capsule mouth. temazepam (RESTORIL) Take 15 mg by 0 10/05/2016 Active 15 MG capsule mouth. rosuvastatin Take 20 mg by mouth 0 09/22/2016 Active (CRESTOR) 20 MG daily at bedtime. tablet LORazepam (ATIVAN) Take 0.5 mg by 0 10/05/2016 Active 0.5 MG tablet mouth. desvenlafaxine Take 100 mg by 0 10/05/2016 Active (PRISTIQ) 50 MG 24 mouth. hour release tablet eszopiclone (LUNESTA) Take by mouth daily 0 Active 2 MG tablet at bedtime. fluticasone (FLONASE) SHAKE LIQUID AND 48 g 0 04/05/2017 Active 50 MCG/ACT nasal USE 2 SPRAYS IN solutionIndications: EACH NOSTRIL DAILY Chronic rhinitis ALBUterol sulfate HFA Inhale 1-2 Puffs. 0 09/25/2018 Active 108 (90 Base) MCG/ACT inhaler Vzvmoym-Gvipbfwym-Wkg Take 1 Tablet by 0 02/15/2017 Active c 333-133-5 MG mouth. Coenzyme Q10 100 MG Take 100 mg by 0 12/01/2016 Active mouth. folic acid 1 MG Take 1 mg by mouth. 0 12/01/2016 Active tablet levonorgestrel 1 Device by 0 11/03/2016 Ac tive (MIRENA) 20 MCG/24HR Intrauterine route. IUD meclizine (ANTIVERT) Take 12.5 mg by 0 04/23/2019 Active 12.5 MG tablet mouth. metoclopramide Take 10 mg by 0 A ctive (REGLAN) 10 MG tablet mouth. xuwrh-1-dilm ethyl Take 1 g by mouth. 0 04/25/2009 Active esters (LOVAZA) [address] 4 mg under 0 04/23/2019 Active (ZOFRAN-ODT) 4 MG tongue. disintegrating tablet prochlorperazine Take 5-10 mg by 0 04/19/2019 Active (COMPAZINE) 5 MG mouth. tablet promethazine Take 1 Tablet by 0 04/27/2018 Active (PHENERGAN) 25 MG mouth. tablet raNITIdine (ZANTAC) Take 75 mg by 0 Active 75 MG tablet mouth. LANTUS SOLOSTAR 100 Inject 0 06/10/2021 Active UNIT/ML pen subcutaneously. bisacodyl (DULCOLAX) Take 1 Tablet (5 30 Tablet 0 11/28/2021 Active 5 MG enteric coated mg) by mouth daily tablet as needed for Constipation (pain medication can cause constipation). VICTOZA 18 MG/3ML Inject 1.8 mg 0 11/22/2021 Active SOPN injection subcutaneously daily. acetaminophen Take 1 Tablet (500 100 Tablet 11 12/14/2021 Active (TYLENOL) 500 MG mg) by mouth every tablet 4 hours as needed for Pain (Mild Pain). Maximum acetaminophen dose is 4000 mg in 24 hours ibuprofen (MOTRIN) Take 2 Tablets (400 100 Tablet 0 12/14/2021 Active 200 MG tablet mg) by mouth every 6 hours as needed for Pain (Mild Pain). This may be safely mixed with the prescription pain medications (oxycodone, hydrocodone or tramadol.)?? This may also be safely mixed with acetaminophen. hydrOXYzine HCl Take 1 Tablet (25 15 Tablet 0 12/14/2021 Active (ATARAX) 25 MG tablet mg) by mouth every 6 hours as needed for Itching, Anxiety or Pain. melatonin 3 MG tablet Take 1 Tablet (3 100 Tablet 0 12/14/2021 Active mg) by mouth at bedtime as needed for Insomnia. HYDROcodone-acetamino Take 1-2 Tablets by 15 Tablet 0 12/24/19 22 Active phen (NORCO) 5-325 MG mouth every 4 hours tablet as needed for Pain. Maximum acetaminophen dose is 4000 mg in 24 hours. Active Problems Patient Care Coordination Note Formatting of this note might be differe nt from the original. Opinion Polls Survey Worker: Tran [facility] [phone] Care coordination focus: T2DM self-manag ement and medication adjustment, financial resources Living situation: lives at home with spo use and children Important notes: daughter is disabled Problem Noted Date Left elbow pain 12/22/2021 Overview: Added automatically from request for grecia riojas [id number] Dislocation of left elbow 11/24/2021 Overview: Added automatically from request for grecia riojas [id number] Menorrhagia with regular cycle 03/17/2016 Mixed anxiety depressive disorder 07/30/2015 Morbid obesity with BMI of 40.0-44.9, adult 04/18/2014 Controlled type 2 diabetes mellitus without complicati on, with long-term 04/17/2014 current use of insulin GERD (gastroesophageal reflux disease) 03/19/2013 Essential hypertension 08/18/2010 Overview: Hypertension Major depressive disorder, single episode 10/15/2005 Overview: LW Onset: ; Depression Major 1episode NOS Chronic rhinitis 08/03/2005 Overview: Rhinitis Chronic Obstructive sleep apnea 08/03/2005 Hyperlipidemia 02/11/2004 Esophageal reflux 02/11/2004 Overview: Gastroesophageal Reflux Disease Resolved Problems Problem Noted Date Resolved Date Type 2 diabetes mellitus, controlled 05/28/201506/2015 Health correction, active care coordination 02/04/2015 10/30/2018 Overview: Opinion Polls Survey Worker: Tran Rodriguez [facility] [phone] Care coordination focus: T2DM self-manag ement and medication adjustment, financial resources Living situation: lives at home with spo use and children Important notes: daughter is disabled See care plan under Chart Review > Misc Reports > [facility] PLAN REPORT Closed left fibular fracture 12/03/2013 02/19/2014 Type 2 diabetes mellitus, controlled 08/18/201007/2013 Overview: DM Type2 Dysplasia of cervix (uteri) 02/11/2004 02/19/2014 Overview: LW Modifier: cone biopsy 06-12-2003 LW Onset: 2002 ; AJ Squamous Intraepith Lesion Cervix Encounters Date Type Specialty Care Team Description 03/11/2022 Ancillary Procedure Radiology PN Vanna Ulloa MD S urgery follow-up 03/11/2022 Office Visit Orthopedics Vanna Ulloa MD Surgery follow-up (Primary Dx); Dislocation of left elbow, subsequent encounter 03/09/2022 Office Visit Hand Therapy Sisi Calderon, Instability of left elbow joint (Primary Dx); OTR/L Aftercare follo wing surgery 02/23/2022 Telemedicine Hand Therapy Sisi Calderon, Instability of left elbow joint (Primary Dx); OTR/L Aftercare follo wing surgery 02/10/2022 Telemedicine Hand Therapy Zerka, Sisi M, Instability of left elbow joint (Primary Dx); OTR/L Aftercare follo wing surgery 02/09/2022 Telemedicine Hand Therapy Sisi Calderon, Instability of left elbow joint (Primary Dx); OTR/L Aftercare follo wing surgery 01/26/2022 Office Visit Hand Therapy Bernardino Rand Elizabeth, OTR/L Instabil ity of left elbow joint (Primary Dx); Aftercare follo wing surgery 01/26/2022 Ancillary Procedure Radiology PN Vanna Ulloa MD P ostop check 01/26/2022 Office Visit Orthopedics Vanna Ulloa MD Postop charles lee (Primary Dx); Dislocation of left elbow, subsequent encounter 01/21/2022 Telemedicine Hand Therapy Sisi Calderon, Instability of left elbow joint (Primary Dx); OTR/L Aftercare follo wing surgery from Last 3 Months Immunizations Name Administration Dates Next Due Flu Vac Preserv Free (3+yrs) 02/18/2012, 02/05/2009, 008, 04/28/2006, 02/13/2005, 02/11/2004 Influenza IIV4 (Quadrivalent) 0.5mL 03/15/2016, 02/22/2015, 02/19/2014, (15591) 05/07/2013 Influenza, Unspecified Formulation 02/13/2003 PPSV23 (Pneumovax) 02/05/2009 TB Skin Test (PPD) 09/13/2006 TDAP (ADACEL) 11/04/2006 Td 01/21/1997 Family History Medical History Relation Name Comments Cancer Mother Diabetes Mother Type 2 Diabetes Maternal Grandfather Type 2 Alzheimer's Maternal Grandmother Heart Disease Paternal Grandfather Cancer Paternal Grandmother Labor Paternal Grandmother Amblyopia/Strabismus Negative Family History Blindness Negative Family History Cancer, Breast Negative Family History Cancer, Ovary Negative Family History Cataract Negative Family History Glaucoma Negative Family History Hypertension Negative Family History Macular Degeneration Negative Family History Retinal Detachment Negative Family History Stroke Negative Family History Thyroid Disorder Negative Family History Relation Name Status Comments Father Alive Mother Brother Alive Maternal Grandfather Maternal Grandmother Paternal Grandfather Paternal Grandmother Social History Tobacco Use Types Packs/Day Years Used Date Smoking Tobacco: Never Smokeless Tobacco: Never Tobacco Cessation: Counseling Given: Not Answered Comments: Quit smoking: Alcohol Use Standard Drinks/Week Comments Yes 0 (1 standard drink = 0.6 oz pure Alcoho lic Drinks/day: Amount:1-2 alcohol) drinks; Freq:2- ; Sex Assigned at Date Recorded Not on file Last Filed Vital Signs Vital Sign Reading Time Taken Comments Blood Pressure 111/66 12/23/2021 4:30 PM CDT Pulse 83 12/23/2021 4:30 PM CDT Temperature 36 ??C (96.8 ??F) 01/12/2022 12:06 PM CDT Respiratory Rate 18 12/23/2021 4:30 PM CDT Oxygen Saturation 92% 12/23/2021 4:30 PM CDT Inhaled Oxygen Concentration - - Weight 111.1 kg (245 lb) 12/23/2021 10:10 AM CDT Height 167.6 cm (5' 6) 12/23/2021 10:10 AM CDT Body Mass Index 39.54 12/23/2021 10:10 AM CDT Plan of Treatment Upcoming Encounters Date Type Specialty Care Team Description 06/15/2022 Appointment Orthopedics Vanna Ulloa MD [address] [place] [address] (Wo rk) Health Maintenance Due Date Last Done Comments Colon Cancer Screening Plan 1965 Due Hep C Screening (Preventive 1965 Services) MTM Targeted 1965 COVID-19 Vaccine (#1) 03/26/1967 HIV Screening (Preventive 1982 Services) HepB (1) 1985 Pneumococcal (2 - PCV) 02/05/2010 02/05/2009 Diabetes: Foot Exam 02/27/2016 02/26/2015 (Completed) Mammogram 08/13/2016 08/14/2015, 08/14/2015 (Completed), 03/15/2014 Diabetes: Creatinine 11/30/2016 12/01/2015, 01/22/2015, 04/17/2014, Additional history exists Diabetes: Urine 11/30/2016 12/01/2015, 01/22/2015, Microalbumin 04/17/2014, Additional history exists Diabetes: HGBA1C 02/24/2017 11/24/2016, 12/01/2015, 05/26/2015, Additional history exists Adult Preventive Visit 03/15/2017 03/15/2016 Pap 02/24/2018 02/24/2015, 02/24/2015 (Completed), 02/19/2014, Additional history exists Diabetes: Lipid Panel 11/30/2020 12/01/2015, 01/22/2015, 04/17/2014, Additional history exists Zoster/Shingles (2 of 2) 05/25/2021 03/30/2021 Influenza (#1) 2022 03/30/2021, 02/21/2020, 05/18/2019, Additional history exists Diabetes: Eye Exam 06/25/2022 06/25/2021, 06/25/2021, 05/29/2019, Additional history exists DTaP/Tdap/Td (3 - Tdap) 09/17/2026 09/17/2016, 11/04/2006, 01/21/1997 HepA Aged Out No longer eligib le based on patient 's age to complete this topic Hib Aged Out No longer eligib le based on patient 's age to complete this topic IPV (Polio) Aged Out No longer eligib le based on patient 's age to complete this topic MCV4 Aged Out No longer eligib le based on patient 's age to complete this topic Medical Devices Implanted Type Area Stereo Equipment Installer Device Shelf Model / Identifier Expiration Serial / Lot Date Sut [employer] 2.9x12.5 - [id number] DEVICE Left: [employer] 05/15/2023 [id number] / Implanted: Qty: 1 on 11/28/2021 by Vanna Ulloa MD at [facility] / [id number] [employer] Dx - [id number] DEVICE Left: [employer] 08/13/2026 [id number] / Implanted: Qty: 1 on 12/14/2021 by Vanna Ulloa MD at [facility] 0 / [id number] - [id number] Left: [id number] [id number] / Implanted: Qty: 1 on 12/14/2021 by Vanna Ulloa MD at [facility] 0 / 0 Description: [employer] [id number] Screw, Polyaxial Non Locking 3.5mm x 34mm, Ti Ebwy-Mfu-Pww - [id number] Left: ELBOW [id number] / Implanted: Qty: 1 on 12/23/2021 by Vanna Ulloa MD at [facility] 0 / 0 Description: [employer] IJS-E Base Plate Assembly Procedures Procedure Name Priority Date/Time Associated Diagnosis Comme nts XR ELBOW LT 2 VIEWS Routine 03/11/2022 11:58 AM Surgery follow -up Results for this CDT procedure are i n the results section. XR ELBOW LT 3+ Routine 01/26/2022 11:52 AM Postop check Result s for this VIEWS CDT procedure are i n the results section. 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 ??Good loc ation of the joint. ??The Boom does not appear to be loosening and all the h ardware is appropriately in place as previously noted. Vanna Ulloa MD RAD GD XR Elbow Lt 3+ Views (01/26/2022 11:52 AM CDT) Anatomical Region Laterality Modality Upper Extremity, Elbow Digital Radiograp hy Specimen (Source) Anatomical Location Collection Method / Collectio n Time Received Time / Laterality Volume Narrative 02/15/2022 9:06 AM CDT X-rays of the left elbow today were compared with those from December 29. ?? These show that there is continued good alignment of the elbow joint. ?? There is healing of the ligamentous and bony structures around the elbow, indicating advanced healing and stabilit y. ??There is no evidence of loosening of any of the screws nor the p late nor axis pin. Vanna Ulloa MD RAD GD from Last 3 Months Insurance Payer Benefit Plan / Subscriber ID Effective Dates Phone Addre [facility] [id number] 2016-Present Medicaid Liz Phelps Personal/Family Self [address] (Home) [facility] [place] [address] Liz Phelps Personal/Family Self [address] (Home) [facility] [place] [address] Advance Directives Latest Code Status on File Code Status Date Activated Date Inactivated Comments Full Code 12/23/2021 12:28 PM 12/23/2021 7:04 PM Code Status History Code Status Date Activated Date Inactivated Comments Full Code 12/14/2021 4:28 PM 12/14/2021 8:34 PM Full Code 11/28/2021 11:46 AM 11/28/2021 5:01 PM Full Code 11/28/2021 9:46 AM 11/28/2021 11:46 AM Care Teams Hydraulic Rock Drill Operator Relationship Specialty Start Date End Date Sonia Pérez PA-C PCP - General Physician Dictaphone Operator 01/10/17 [address] [facility] [address] [place] [id number]
--- OUTSIDE RECORDS SUMMARY | 2022-04-22 13:57 | XMS_ITS | Encounter Summary ---
:1965 [facility] Address [address] [place] [address] Care Team Providers Name Role Phone Sonia Pérez PA-C Primary Care Provider Reason for Visit Procedure/Equipment (Routine) - Incomplete Specialty Diagnoses / Procedures Referred By Contact Refer red To Contact Diagnoses Surgery follow-up Vanna Ulloa MD Procedures XR Elbow Lt 2 Views [address] [facility] [address] [facility] [address] [place] [address] Referral ID Status Reason Start Date Expiration Date Visits V isits Requested Authorized [id number] Incomplete 03/11/2022 06/10/2023 1 1 Encounter Details Date Type Department Care Team Description 03/11/2022 Ancillary Procedure [facility] Radiology Vanna Ulloa, Surgery follow-up [address] [facility] [place] [address] [phone] Social History Tobacco Use Types Packs/Day Years [...] 06/15/2022 Appointment Orthopedics Vanna Ulloa MD [address] [facility] [place] [id number] (Wo rk) documented as of this encounter Procedures Procedure Name Priority Date/Time Associated Diagnosis Comme nts XR ELBOW LT 2 VIEWS Routine 03/11/2022 11:58 AM Surgery follow -up Results for this CDT procedure are i n the results section. 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 ??Good loc ation of the joint. ??The Boom does not appear to be loosening and all the h ardware is appropriately in place as previously noted. Vanna Ulloa MD RAD GD documented in this encounter Visit Diagnoses Diagnosis Surgery follow-up Follow-up examination, following unspeci fied surgery documented in this encounter Care Teams Dairy Quality Assurance Officer Relationship Specialty Start Date End Date Sonia Pérez PA-C PCP - General Physician Poultry Dresser 01/10/17 [address] [facility] [address] [place] [id number] documented as of this encounter
--- OUTSIDE RECORDS SUMMARY | 2022-04-22 13:57 | XMS_ITS | Encounter Summary ---
:1965 Author Organization [facility] Address [address] [place] [address] Care Team Providers Name Role Phone Sonia Pérez PA-C Primary Care Provider Reason for Referral Therapies (Routine) - New Request Specialty Diagnoses / Procedures Referred By Contact Refer red To Contact Diagnoses Dislocation of left elbow, subsequent encounter Vanna Ulloa MD [address] [facility] [address] [place] [address] Referral ID Status Reason Start Date Expiration Date Visits V isits Requested Authorized [id number] New Request 01/26/2022 01/26/2023 1 1 Scheduling Instructions Your provider has recommended an appoint ment with [facility]. You can quickly make your appointment online at [email or web address]/schedule. You can also call [phone] for help scheduling yo ur appointment. We suggest you call your health insurance company about your cove rage and benefits for this appointment. Procedure/Equipment (Routine) - Incomplete Specialty Diagnoses / Procedures Referred By Contact Refer red To Contact Diagnoses Postop check Vanna Ulloa MD Procedures XR Elbow Lt 3+ Views [address] [facility] [place] [address] Referral ID Status Reason Start Date Expiration Date Visits V isits Requested Authorized [id number] Incomplete 01/26/2022 04/27/2023 1 1 Reason for Visit Reason Comments Post-Op Check Left elbow Encounter Details Date Type Department Care Team Description 01/26/2022 Office Visit [facility]IC Vanna Ulloa MD Postop check (Primary Dx); CENTER [address] [place] [address] Dislocation of left elbow, subsequent en counter [address] [place], [place] [phone] (Wo rk) Social History Tobacco Use Types Packs/Day Years Used Date Smoking Tobacco: Never Smokeless Tobacco: Never Comments: Quit smoking: Alcohol Use Standard Drinks/Week Comments Yes 0 (1 standard drink = 0.6 oz pure Alcoho lic Drinks/day: Amount:1-2 alcohol) drinks; Freq:- ; Sex Assigned at Date Recorded Not on file documented as of this encounter Patient Instructions Patient InstructionsAnahi Ellison ATC - 01/26/2022 11:45 AM CDT Thank you for Choosing [facility] for your health care visit today. Dr. Yesenia Ulloa MD Hand & Upper Extremity Surgeon Medication Requests: Prescriptions are not filled on weekends or on weekdays after 3:00 PM. For all medication refills: Request a refill using [employer] or contact your pharmacy. What is Know Your Cost? Know Your Cost is a service for patients and patient/members to call and receive personalized cost information and estimates across our care group. The phone number is (COST) Tuesday - Tuesday 8 AM to 5 PM Advanced Imaging Scheduling: To schedule an MRI, Ultrasound, or Image guided injection at [facility] please call [phone]. To schedule an MRI or CT at a [facility] location please call [phone]. [employer] [address] [place], [place] [address] (Phone) Email: [email or web address] Release of Information: Radiology/Imaging [address] [place] [address] (Phone) Health Information Management [address] [place] [address] (Phone) [employer] documented in this encounter Progress Notes Vanna Ulloa MD - 01/26/2022 12:00 AM CDT NAME: MARCELO BECK CSN: [id number] CLINIC NOTE DATE OF SERVICE: 01/26/2022 : 1965 HISTORY OF PRESENT ILLNESS: Marcelo is seen in routine followup, about 5 weeks out from her final revision of the left elbow dislocation on 12/23/2021. She has been working on her range of motion. Thinksit is coming along. It is sore today, but she thinks it is because she overdid it a little. Has beenwearing her brace basically full-time except for shower and therapeutic exercise. No numbness or tingling in the hands. Numb or burning sensation in the dorsal forearm is present still, improving. Complains of swollen fingers. EXAM: The fingers do look a little swollen. Her wound is beautifully healed. Her range is 40 to 95 with supination to 80 and pronation to 60. The plate is very slightly palpable underneath the swollen soft tissues. Smooth arc of motion. X-RAY EXAMINATION: X-rays of the left elbow today were compared with those from December 29. These show that there is continued good alignment of the elbow joint. There is healing of the ligamentous and bony structures around the elbow, indicating advanced healing and stability. There is no evidence of loosening of any of the screws nor the plate nor axis pin. ASSESSMENT: Marcelo is doing very well. At this time, she can discontinue her brace and start working on her passive range of motion as well as some strengthening. Okay to use a 16-ounce can for elbow and wrist curls. Putty is encouraged. Okay to get back into the pool for walking. Splint is the optional at this point. PLAN: Follow up with me again in 1 month for repeat AP and lateral x-rays of the left elbow and advancing her activity. At that time, we can discuss the possibility of plate removal, but for now, we both agreed we would opt to wait until there is a problem with it. VANNA ULLOA MD DCB/AQS /[id number] documented in this encounter Plan of Treatment Upcoming Encounters Date Type Specialty Care Team Description 06/15/2022 Appointment Orthopedics Vanna Ulloa MD [address] [place] [address] (Wo rk) Scheduled Referrals Name Type Priority Associated Diagnoses Order S chedule Hand Therapy Consult Referral Routine Dislocation of left elbow, Ordered: 01/26/2022 subsequent encounter documented as of this encounter Results XR Elbow Lt 3+ Views (01/26/2022 11:52 [...] axis pin. Vanna Ulloa MD RAD GD documented in this encounter Visit Diagnoses Diagnosis Postop check - Primary Follow-up examination, following unspeci fied surgery Dislocation of left elbow, subsequent en counter Postop check Follow-up examination, following unspeci fied surgery documented in this encounter Care Teams Instructor Knitting Relationship Specialty Start Date End Date Sonia Pérez PA-C PCP - General Physician Judicial Clerk 01/10/17 [address] [facility] [address] [place] [address] documented as of this encounter
--- OUTSIDE RECORDS SUMMARY | 2022-04-22 13:57 | XMS_ITS | Encounter Summary ---
:1965 Author Organization [facility] Address [address] [place] [address] Care Team Providers Name Role Phone Sonia Pérez PA-C Primary Care Provider Reason for Referral Therapies (Routine) - New Request Specialty Diagnoses / Procedures Referred By Contact Refer red To Contact Diagnoses Dislocation of left elbow, subsequent encounter Vanna Ulloa MD [address] [facility] [address] [place] [address] Referral ID Status Reason Start Date Expiration Date Visits V isits Requested Authorized [id number] New Request 03/11/2022 03/11/2023 1 1 Scheduling Instructions Your clinician has recommended an appoin tment with [facility] [place]. You can quickly make your appointment online at [employer]/schedule. You can also call [phone] for help scheduling yo ur appointment. We suggest you call your health insurance company about your cove rage and benefits for this appointment. Procedure/Equipment (Routine) - Incomplete Specialty Diagnoses / Procedures Referred By Contact Refer red To Contact Diagnoses Surgery follow-up Vanna Ulloa MD Procedures XR Elbow Lt 2 Views [address] [address] Referral ID Status Reason Start Date Expiration Date Visits V isits Requested Authorized [id number] Incomplete 03/11/2022 06/10/2023 1 1 Reason for Visit Reason Comments Elbow Pain Left Encounter Details Date Type Department Care Team Description 03/11/2022 Office Visit [facility] Vanna Ulloa MD Surgery follow-up (Primary Dx); CENTER [address] [place] [address] Dislocation of left elbow, subsequent en counter [address] [place], [place] [phone] (Wo rk) Social History Tobacco Use Types Packs/Day Years Used Date Smoking Tobacco: Never Smokeless Tobacco: Never Comments: Quit smoking: Alcohol Use Standard Drinks/Week Comments Yes 0 (1 standard drink = 0.6 oz pure Alcoho lic Drinks/day: Amount:1-2 alcohol) drinks; Freq:-/Tue ; Sex Assigned at Date Recorded Not on file documented as of this encounter Progress Notes Vanna Ulloa MD - 03/11/2022 12:00 AM CDT NAME: MARCELO BECK CSN: [id number] CLINIC NOTE DATE OF SERVICE: 03/11/2022 : 1965 HISTORY OF PRESENT ILLNESS: Marcelo is seen in routine followup approximately 6 weeks since her last elbow surgery for instability. She is here by herself and she is pleased that she was able to drive herself. She thinks it feels pretty good, although it is weak. She is working on her strength and her range of motion. She has been riding a motorized trike a little bit. She said she was able to do it for about 8 minutes before it got hard to hold down the clutch hard enough. She has been working with [employer] ball and strengthening with a soup can. Wondering if she can advance. EXAM: Her swelling is down tremendously. The plate is palpable on the posterolateral ulna and I think I can feel the Boom under the soft tissues. Her range is 25 to 120, which is a great improvement from her last visit when it was 40 to 95. She has normal function of her hand. X-RAY EXAMINATION: 3 views of the left elbow show that there is continued healing of the soft tissuesurrounding the elbow. Good location of the joint. The Boom does not appear to be loosening and all the hardware is appropriately in place as previously noted. ASSESSMENT: Marcelo is actually doing great with her range of motion. I do not plan to remove the hardware unless she has further issues. PLAN: I would like to see her again in 3 months for clinical recheck. We can get an AP and lateral x-ray of the left elbow at that time to assess whether there is loosening. We can also tell at that point if it seems as though the hardware should come out. She is inclined to leave it and so am I unless we are forced. Okay to advance activities as tolerated including strengthening. VANNA ULLOA MD DCB/AQS /[id number] documented in this encounter Plan of Treatment Upcoming Encounters Date Type Specialty Care Team Description 06/15/2022 Appointment Orthopedics Vanna Ulloa MD [address] [place] [address] (Wo rk) Scheduled Referrals Name Type Priority Associated Diagnoses Order S chedule Hand Therapy Consult Referral Routine Dislocation of left elbow, Ordered: 03/11/2022 subsequent encounter documented as of this encounter Results XR Elbow Lt 2 Views (03/11/2022 11:58 AM CDT) Anatomical Region Laterality Modality Upper Extremity, Elbow, Arm Digital Radi ography Specimen (Source) Anatomical Location Collection Method / Collectio n Time Received Time / Laterality Volume Narrative 03/22/2022 2:20 PM AUTOMOTIVE DESIGN DRAFTER 3 views of the left elbow show that there is continued healing of the soft tissue surrounding the elbow. ??Good loc ation of the joint. ??The Boom does not appear to be loosening and all the h ardware is appropriately in place as previously noted. Vanna Ulloa MD RAD GD documented in this encounter Visit Diagnoses Diagnosis Surgery follow-up - Primary Follow-up examination, following unspeci fied surgery Dislocation of left elbow, subsequent en counter Surgery follow-up Follow-up examination, following unspeci fied surgery documented in this encounter Care Teams Hoop Coiling Machine Operator Relationship Specialty Start Date End Date Sonia Pérez PA-C PCP - General Physician Cow Trimmer 01/10/17 [address] [facility] [address] [place] [address] documented as of this encounter
--- OUTSIDE RECORDS SUMMARY | 2022-04-22 13:57 | XMS_ITS | Encounter Summary ---
:1965 Author [facility] Address [address] [place] [address] Care Team Providers Name Role Phone Sonia Pérez PA-C Primary Care Provider Reason for Visit Reason Comments Orders Needed Referral to different [facility] er Encounter Details Date Type Department Care Team Description 01/13/2022 Telephone [facility] Latanya Wilson MD Orders Needed CENTER [address] [place] [address] (Referral to different [address] [place] [address] provider ) [place], [place] [phone] (Wo rk) Social History Tobacco Use Types Packs/Day Years Used Date Smoking Tobacco: Never Smokeless Tobacco: Never Comments: Quit smoking: Alcohol Use Standard Drinks/Week Comments Yes 0 (1 standard drink = 0.6 oz pure Alcoho lic Drinks/day: Amount:1-2 alcohol) drinks; Freq:2-4/Tue ; Sex Assigned at Date Recorded Not on file documented as of this encounter Nursing Notes Kate Vergara RN - 01/13/2022 12:59 PM CDT Bus Monitor contacted [facility] and got the phone and fax numbers for the PT dep.t. , phone: [phone]. Successfully faxed over the order. Pt. Was informed of this and she does have their scheduling line phone number. ASSESSMENT: Left distal fibular fracture 9 weeks status post injury with clinical and radiographic healing. PLAN: We will discontinue the boot. She has an upcoming vacation and so we will have her use an ankle brace for support during that time. I encouraged physical therapy for strength and range of motion going forward. She will follow up as needed. LATANYA WILSON MD SAB/AQS /[id number] Roger Diaz - 01/13/2022 12:46 PM CDT Has the patient recently had surgery or an injury? No, [facility] Please follow up with patient and advise. Ortho Physical Therapy Request Date of Injury November 12, 2021 Type of Injury left ankle Physical Therapy Name: Birgit Holder PT Physical Therapy Phone: N/a Physical Therapy Fax: N/a documented in this encounter Plan of Treatment Upcoming Encounters Date Type Specialty Care Team Description 06/15/2022 Appointment Orthopedics aVnna Ulloa MD [address] [place] [address] (Wo rk) documented as of this encounter Visit Diagnoses Not on filedocumented in this encounter Care Teams Director Of It Operations Relationship Specialty Start Date End Date Sonia Pérez PA-C PCP - General Physician Record Press Tender 01/10/17 [address] [place] [address] [place] [id number] documented as of this encounter
--- OUTSIDE RECORDS SUMMARY | 2022-04-22 13:57 | XMS_ITS | Encounter Summary ---
:1965 Author Organization [facility] Address [address] [place] [address] Care Team Providers Name Role Phone Sonia Pérez PA-C Primary Care Provider Reason for Visit Reason Comments Elbow Problem Encounter Details Date Type Department Care Team Description 01/21/2022 Telemedicine [facility] Sisi Calderon, Instability of left elbow jaylon int (Primary Dx); [address] [facility] OTR/L Aftercare following surgery [place], [place] [address] [facility] [phone] [place] [address] (Wo rk) Social History Tobacco Use Types Packs/Day Years Used Date Smoking Tobacco: Never Smokeless Tobacco: Never Comments: Quit smoking: Alcohol Use Standard Drinks/Week Comments Yes 0 (1 standard drink = 0.6 oz pure Alcoho lic Drinks/day: Amount:1-2 alcohol) drinks; Freq:- ; Sex Assigned at Date Recorded Not on file documented as of this encounter Progress Notes Sisi Calderon, OTR/L - 01/21/2022 10:30 AM CDT [facility] Telehealth Progress Note This encounter was completed via telehealth/video per patient request as certain health care needs can be provided without an in-person physical exam. Their hand/occupational therapist will provide further instructions and programming notes via [email or web address], an online education and home exercise program platform, [employer], or [employer]. Time service began: 10:30 am Time service ended: 10:43 am Patient location: home outside Provider location: hand therapy clinic Mode of transmission: [employer] Education/Handouts: Liz Phelps was provided with a summary of recommendations stemming from this telehealth visit. Insurance: Payor: [employer] / Plan: [facility] PMAP / Product Type: Medicaid / Referring Provider: Vanna Ulloa Referring Diagnosis: No diagnosis found. (Left [...] complication, with long-term current use of insulin (HR), Depression, Gastroesophageal reflux disease, Hypertension (HRC), Irritable [...] to no difficulty in 90 days SUBJECTIVE: 4 weeks out from revision. Pt os not wearing brace at beginning of video and demonstrates HEP with forearm pronated (gave feedback to pt and corrected to neutral, preferred palm up). 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 Sleeping positions have been difficult and pt is eager to return to the pool. She is going out of town this weekend to [place] for a motorcycle gathering. Pt is worried about lump on lateral elbow, unable to feel/see if this is edema or the lateral epicondyle or both. OBJECTIVE: Pain: Increased pain since the last [...] (over video at not a good angle) Extension/Flexion NT 45/90 50/100 41/96 45/130 Supination/Pronation NT Near normal supination /NO pronation allowed. WNL/Not assessed (NO pronationper MD) WNL/Not assessed (NO pronation per MD) WNL/NT Near full fist with feeling of tightness. Same for finger extension. Thumb opposition at this time is to tip of small with effort. Strength: Deferred Sensation: Reported intact Scar: Scar appear flat, well healed, with no sign of infection (01/21/2022: unable to see scar over video). TODAY'S TREATMENT INTERVENTION: Therapeutic Exercise CPT 25167 (13 minutes): New objective measures taken, see above. Reviewed restrictions (especially no shoulder abduction and forearm pronation) and reviewed elbow flexion/extension with forearm supinated. Reviewed use of hinged elbow brace. Timed Code Treatment Minutes: 13 Total Treatment Minutes: 13 ASSESSMENT: May be some confusion of restrictions, difficulty assessing progress over video today. PLAN: Pt prefers video visits. Plan for Next Treatment: check for updated orders following MD. Frequency/Duration: 1 x week - The patient will follow up with the referring provider as directed. - The patient has the clinic number and understands to call with any questions or concerns. Planned Intervention: AROM, PROM, strength, home exercise program, scar management, edema control, diagnosis education, soft tissue mobilization, modalities: as beneficial, splint/orthosis, adjust patient's splint/orthosis as needed Therapist Signature: Sisi Calderon MOTAbby/Gina CHT #[id number] Visit # 6 Payor: [employer] / Plan: [facility] PMAP / Product Type: Medicaid / documented in this encounter Plan of Treatment Upcoming Encounters Date Type Specialty Care Team Description 06/15/2022 Appointment Orthopedics Vanna Ulloa MD [address] [place], [place] [address] (Wo rk) documented as of this encounter Visit Diagnoses Diagnosis Instability of left elbow joint - Primar y Aftercare following surgery Encounter for other specified aftercare documented in this encounter Care Teams Coiler Relationship Specialty Start Date End Date Sonia Pérez PA-C PCP - General Physician Educational Technologist 01/10/17 16[address] [facility] [address] [place] [address] documented as of this encounter
--- OUTSIDE RECORDS SUMMARY | 2022-04-22 13:57 | XMS_ITS | Encounter Summary ---
:1965 Author Organization [employer] Address [address] [place] [address] Care Team Providers Name Role Phone Sonia Pérez PA-C Primary Care Provider Encounter Details Date Type Department Care Team Description 12/23/2021 Anesthesia Event [facility] Gwyn Padilla, [address] [facility] Elvin villasenor MD [place], [place] [address] [phone] [address] [address] [place], [place] [address] (Wo rk) Anesthesia Record Procedure Summary Procedure Name Responsible Anesthesia Start Anesthesia Stop Anesthesiologist Time Time revision FIXATION Gwyn Padilla MD 12/23/21 1234 12/23/21 1452 ELBOW dislocation (Left: Elbow) Events Date Time Event Comment 12/23/2021 1220 1234 An Start 1238 An Start Data 1243 An Induction 1248 An Intubation 1345 MD/DO Present 1420 An Extubation Purposeful movem ent with spontaneous respirations and adequate air exchange. Suctioned and ETT removed. Transfe rred with oxygen to recovery. 1421 An Oxygen Mask Spontaneous res pirations with adequate air exchange. 1437 an stop data 1452 Care Handoff Note I discussed wi th the receiving nurse and we: 1) Identified the p atient, sol family member(s) or patient surrogat e 2) Identified the responsible practitioner 3) Reviewed the pertinent medical history 4) Discu ssed the surgical/procedure course 5) Reviewed intr a-op anesthesia management and issues during an esthesia 6) Set expectations for the post-procedu re period 7) Allowed opportunity for questions an d acknowledgement of understanding of report Electr onically signed by Raul Mccullough APRN, ASPHALT SCREED OPERATOR 1459 An [facility] Care transferred . Name Total ropivacaine (NAROPIN) 0.5% (5 mg/mL) injection 30 mL dexamethasone PF (DECADRON) 10 mg/mL injection 4 mg midazolam 2 mg/2 mL injection (aka VERSED) 2 mg FENTanyl injection (aka SUBLIMAZE) 100 mcg propofol 10 mg/mL for procedural sedation (aka diPRIva n) 1,207.68 mg succinylcholine injection (aka QUELICIN) 140 mg glycopyrrolate injection (aka ROBINUL) 0.2 mg ondansetron injection (aka ZOFRAN) 4 mg dexamethasone 4 mg/mL injection (aka DECADRON) 4 mg ketorolac 15 mg/mL injection (TORADOL) 15 mg ceFAZolin (ANCEF) 3 g in sodium chloride 0.9 % 50 mL I VPB 6 g phenylephrine (VAZCULEP) 50,000 mcg in sodium chloride 0.9 % 500 mL (100 200 mcg mcg/mL) infusion lactated ringers infusion 1,400 mL Agents Name O2 N2O Blood No blood administrations on file. Lines, Drains, and Airways Type Details Placement Removal Incision/Surgical Site 12/14/21; 1324; #1; 12/14/21 1324 by 12/14 10/04 1829 by Lda, No; Elbow; Left, Calvano, Nita M, Discontinu e Posterior; 12/28/21; RN 182 Peripheral IV Placement Date: 12/23/21 1028 by 12/23/21 1630 b y 12/23/21; Placement Gwyn Padilla MD Ervasti, Jaime L, RN Time: 1028; Pre-existing: No; Inserted by?: Anesthesiologist; Size (Gauge): 20 G; Orientation: Right; Site Prep: Alcohol; Local Anesthetic: None; Insertion attempts: 1; Blood draw with insertion?: no; Patient Tolerance: Tolerated well; Removal Date: 12/23/21; Removal Time: 1630; Removal Reason: Per Protocol; Catheter Tip: Intact ETT Placement Date: 12/23/21 1248 by 12/23/21 1420 b y 12/23/21; Placement Raul Mccullough, Constantin Mccullough, Time: 1248; Placed CIGARETTE PAPER TESTER, JULIAN CIGARETTE PAPER TESTER, ASPHALT SCREED OPERATOR By: ASPHALT SCREED OPERATOR; Induction Type: Pre-O2; Masking: Easy; ETT Type: ETT; Orientation: Right; Size (mm): 7.0; Depth Secured (cm): 21 cm; Cuffed: Cuffed; Cuff Volume: 3 mL; Intubation Method: DL; Cormack_Lehane Glottic Grade: Grade 2; Glottic View: Cords Open; Blade: MAC; Blade Size: 3; Insertion attempts: 1; Difficulty: Atraumatic; Adjunct Equipment: Stylet; Placement Verification: BBSE, Positive EtCO2, auscultation; Teeth and Lips Unchanged: Unchanged; Removal Date: 12/23/21; Removal Time: 1420 Incision/Surgical Site 12/23/21; 1313; #1; 12/23/21 1313 by 12/15 09/04 1659 by Héctor, Yes; Elbow; Left, Mana Gr RN Discontin ue Posterior; 01/06/22; 1659 documented in this encounter Social History Tobacco Use Types Packs/Day Years Used Date Smoking Tobacco: Never Smokeless Tobacco: Never Comments: Quit smoking: Alcohol Use Standard Drinks/Week Comments Yes 0 (1 standard drink = 0.6 oz pure Alcoho lic Drinks/day: Amount:1-2 alcohol) drinks; Freq:2-4/Tue ; Sex Assigned at Date Recorded Not on file documented as of this encounter Progress Notes Gwyn Padilla MD - 12/31/2021 9:13 PM CDT Addendum created 12/31/212112 by Gwyn Padilla MD Clinical Note Signed, Diagnosis association updated documented in this encounter Miscellaneous Notes Anesthesia Postprocedure Evaluation - Gwyn Padilla MD - 12/23/2021 4:06 PM CDT [facility] An[facility] Post-op Note Patient: Liz Phelps Post-Op Diagnosis: Left elbow pain, dislocation of left elbow, subsequent encounter Procedure Performed: Procedure(s): Left - revision FIXATION ELBOW dislocation - Wound Class: 1 CLEAN Anesthesia Type: General Post-op vital signs: Vitals Value Taken Time BP 98/66 12/23/21 1546 Temp 36.7 ??C (98.1 ??F) 12/23/21 1545 Pulse 89 12/23/21 1546 Resp 16 12/23/21 1546 SpO2 93 % 12/23/21 1546 Pain Score: Presence Of Pain: denies Preferred Pain Scale: number (Numeric Rating Pain Scale) Pain Rating (0-10): Rest: 0 Post-op assessment: No anesthesia complication. Patient location: Phase 2 Airway Status: Patent Cardiovascular function: Satisfactory Hydration status: Satisfactory PONV: None Level of Consciousness: Awake Fully Participates Postop Assessment: Patient tolerated procedure well. Electronically signed by: Gwyn Padilla MD 12/23/2021 4:06 PM Anesthesia Procedure Notes - Gwyn Padilla MD - 12/23/2021 11:13 AM CDT Associated Order(s): Peripheral Block Peripheral Block Performed by: Gwyn Padilla MD Authorized by: Gwyn Padilla MD Patient Location: Preop Start Time: 12/23/2021 11:03 AM End Time: 12/23/2021 11:08 AM Performed by: Anesthesiologist Body area of block: Upper Extremity Upper Extremity Blocks: Supraclavicular Laterality: Left Correct Position: Yes Correct Patient: Yes Correct Site: Yes Correct Procedure: Yes Correct Laterality: Yes Site Marked: Yes Checklist: post-operative analgesia only, risks and benefits discussed, patient agrees to proceed, IV checked, anesthesia consent, monitors/equipment checked, surgical consent and at surgeon's request Prep: Chloraprep, Hat, Sterile gloves and Mask Monitoring: Blood pressure, home specialist and continuous pulse oximetry Patient Position: Sitting Procedures: ultrasound guided Needle Type: Insulated Needle Length: 4 in Needle Gauge: 21 G Pain on Injection: No Blood aspirated?: No Bolus given as slow fractionated injection?: Yes Paresthesias?: No Bleeding at site?: No Ultrasound guided?: Yes Ultrasound image saved/archived?: Yes Ultrasound Interpretation: anatomic plane and expected location of nerve appear normal, local anesthetic visualized surrounding nerve, appropriate spread of the medication was noted in real time, no ultrasound evidence of intravascular and/or intraneural injection, needle tip was noted to be adjacent to the nerve/plexus identified and needle and nerve visualized Catheter placed?: No Procedure Comments: If block is for post-op pain, The surgeon has given a verbal order transferring care of this patient to me for the performance of a regional analgesia block for post-op pain control. It is requested of me because I am uniquely trained and qualified to perform this block and the surgeon is neither trained nor qualified to perform this procedure. Block and charting preformed by Gwyn Padilla MD Signed by Gwyn Padilla MD Ropivacaine administered: Ropivacaine 0.5% (5 mg/mL) 5 MG/ML - Regional Nerve Block 30 mL - 12/23/2021 11:08:00 AM Dexamethasone administered: Dexamethasone PF 10 MG/ML - Intravenous 4 mg - 12/23/2021 11:08:00 AM Anesthesia Preprocedure Evaluation - Gwyn Padilla MD - 12/23/2021 10:32 AM CDT [facility] An[facility]hesia Pre-op Evaluation Procedure: revision FIXATION ELBOW dislocation, Left HPI: 56 y.o. old female with Left elbow pain, dislocation of left elbow, subsequent encounter Last Fluid Intake Time: 0630 Last Fluid Intake Date: 12/23/21 Last Food Intake Date: 12/22/21 Last Food Intake Time: 2300 Allergies Allergen Reactions ??? Exenatide Other, see comments PN: local site reaction of skin breakdown, severe itching, and pain. ??? Atorvastatin Other reaction(s): Myalgia ??? Dilaudid [Hydromorphone] Other, see comments Nausea/Vomiting. Pt stated was admitted to hospital after taking Dilaudid due to uncontrollable N/V ??? Dulaglutide Gastrointestinal and Nausea Past Medical History: Diagnosis Date ??? Anxiety (HRC) ??? Cataract 06/09/2020 both eyes ??? Controlled type 2 diabetes mellitus without complication, with long-term current use of insulin (HRC) ??? Depression ??? Gastroesophageal reflux disease ??? Hypertension (HRC) ??? Irritable bowel syndrome ??? Migraine, unspecified, without mention of intractable migraine without mention of status migrainosus ??? Unspecified congenital anomaly of heart Patient Active Problem List Diagnosis ??? Hyperlipidemia (HRC) ??? Esophageal reflux ??? Chronic rhinitis ??? Obstructive sleep apnea ??? Major depressive disorder, single episode (HRC) ??? Essential hypertension (HRC) ??? GERD (gastroesophageal reflux disease) ??? Controlled type 2 diabetes mellitus without complication, with long-term current use of insulin (HRC) ??? Morbid obesity with BMI of 40.0-44.9, adult (HRC) ??? Mixed anxiety depressive disorder (HRC) ??? Menorrhagia with regular cycle ??? Dislocation of left elbow ??? Left elbow pain Past Surgical History: Procedure Laterality Date ??? ELBOW SURGERY ??? LAP CHOLECYSTECTOMY 10/14/2016 ??? TUBAL LIGATION ??? WISDOM TEETH EXTRACTION Outpatient Medications as of 12/23/2021 Medication Sig ??? ACCU-CHEK FARTUN PLUS test strip Use to test three times daily before meals. Code E11.9 ??? acetaminophen (TYLENOL) 500 MG tablet Take 1 Tablet (500 mg) by mouth every 4 hours as needed for Pain (Mild Pain). Maximum acetaminophen dose is 4000 mg in 24 hours ??? acetaminophen (TYLENOL) 500 MG tablet Take 1 Tablet (500 mg) by mouth every 4 hours as needed for Pain (Mild Pain). Maximum acetaminophen dose is 4000 mg in 24 hours ??? ALBUterol sulfate HFA 108 (90 Base) MCG/ACT inhaler Inhale 1-2 Puffs. ??? aspirin EC 81 MG enteric coated tablet Take 1 tablet by mouth daily (every 24 hours). ??? bisacodyl (DULCOLAX) 5 MG enteric coated tablet Take 1 Tablet (5 mg) by mouth daily as needed for Constipation (pain medication can cause constipation). ??? blood glucose test strip Use 1 strip as instructed 3 times daily. ??? Tsynsxf-Obvgjthau-Gqdw 333-133-5 MG Take 1 Tablet by mouth. ??? Coenzyme Q10 100 MG Take 100 mg by mouth. ??? cyclobenzaprine (FLEXERIL) 5 MG tablet Take 1 tablet by mouth 3 times daily as needed for Musclespasms. ??? desvenlafaxine (PRISTIQ) 50 MG 24 hour release tablet Take 100 mg by mouth. ??? dulaglutide (TRULICITY) 0.75 MG/0.5ML injection pen Inject 1 Pen subcutaneously once a week. ??? DULoxetine (CYMBALTA) 30 MG capsule Take 30 mg by mouth. ??? eszopiclone (LUNESTA) 2 MG tablet Take by mouth daily at bedtime. ??? fluticasone (FLONASE) 50 MCG/ACT nasal solution SHAKE LIQUID AND USE 2 SPRAYS IN EACH NOSTRIL DAILY ??? folic acid 1 MG tablet Take 1 mg by mouth. ??? gabapentin (NEURONTIN) 400 MG capsule Take 400 mg in the morning and 800 mg in the evening. ??? HYDROcodone-acetaminophen (NORCO) 5-325 MG tablet Take 1-2 Tablets by mouth every 4 hours as needed for Pain (Severe). ??? hydrOXYzine HCl (ATARAX) 25 MG tablet Take 1 Tablet (25 mg) by mouth every 6 hours as needed forItching, Anxiety or Pain. ??? ibuprofen (MOTRIN) 200 MG tablet Take 2 Tablets (400 mg) by mouth every 6 hours as needed for Pain (Mild Pain). This may be safely mixed with the prescription pain medications (oxycodone, hydrocodone or tramadol.)?? This may also be safely mixed with acetaminophen. ??? ibuprofen (MOTRIN) 200 MG tablet Take 600 mg by mouth. ??? insulin pen needle (BD PEN NEEDLE JUHI U/F) 32G X 4 MM Inject subcutaneously two times a day. ??? LANTUS SOLOSTAR 100 UNIT/ML pen Inject subcutaneously. ??? levonorgestrel (MIRENA) 20 MCG/24HR IUD 1 Device by Intrauterine route. ??? lisinopril (ZESTRIL) 20 MG tablet TAKE 1 TABLET BY MOUTH EVERY DAY ??? LORazepam (ATIVAN) 0.5 MG tablet Take 0.5 mg by mouth. ??? meclizine (ANTIVERT) 12.5 MG tablet Take 12.5 mg by mouth. ??? melatonin 3 MG tablet Take 1 Tablet (3 mg) by mouth at bedtime as needed for Insomnia. ??? metFORMIN (GLUCOPHAGE XR) 500 MG 24 hour release tablet Take 3 tablets by mouth daily (every 24 hours). ??? metoclopramide (REGLAN) 10 MG tablet Take 10 mg by mouth. ??? Multiple Vitamins-Minerals (MULTIVITAMIN OR) Take 1 tablet by mouth daily (every 24 hours). ??? omega-3 fatty acids (MAXEPA,FISHOIL) 1000 MG capsule daily (every 24 hours). ??? jqzqr-2-jpzj ethyl esters (LOVAZA) 1 g capsule Take 1 g by mouth. ??? omeprazole ([employer] OMEPRAZOLE) 20 MG enteric coated tablet Take 1 tablet by mouth daily (every 24 hours). LW Comment:flex spending account LW Addl Instr:Indicated for: Acid Reflux ??? ondansetron (ZOFRAN-ODT) [address] 4 mg under tongue. ??? prochlorperazine (COMPAZINE) 5 MG tablet Take 5-10 mg by mouth. ??? promethazine (PHENERGAN) 25 MG tablet Take 1 Tablet by mouth. ??? raNITIdine (ZANTAC) 75 MG tablet Take 75 mg by mouth. ??? rosuvastatin (CRESTOR) 20 MG tablet Take 20 mg by mouth daily at bedtime. ??? temazepam (RESTORIL) 15 MG capsule Take 15 mg by mouth. ??? TRULICITY 0.75 MG/0.5ML SOPN INJECT 0.75MG SUBCUTANEOUSLY ONCE A WEEK ??? VICTOZA 18 MG/3ML SOPN injection Inject 1.8 mg subcutaneously daily. Facility-Administered Medications as of 12/23/2021 Medication Dose Route Frequency ??? ceFAZolin (ANCEF) 3 g in sodium chloride 0.9 % 50 mL IVPB 3 g Intravenous Once ??? fentaNYL (SUBLIMAZE) injection 25-50 mcg 25-50 mcg Intravenous Q5MIN PRN ??? hydrALAZINE (APRESOLINE) injection 5 mg 5 mg Intravenous Q10MIN PRN ??? morphine injectable 1-2 mg 1-2 mg Intravenous Q15MIN PRN ??? naloxone (NARCAN) injection 0.08 mg 0.08 mg Intravenous PRN ??? naloxone (NARCAN) injection 0.4 mg 0.4 mg Intravenous ONCE PRN ??? ondansetron (ZOFRAN) injection 4 mg 4 mg Intravenous Q4H PRN Labs: Lab Results Component Value Date/Time SODIUM 141 12/01/2015 11:16 AM K 4.4 12/01/2015 11:16 AM CHLORIDE 106 12/01/2015 11:16 AM CREATININE 0.90 12/01/2015 11:16 AM GLUCOSE 253 (H) 05/07/2013 11:04 AM Lab Results Component Value Date/Time WBC 7.7 12/14/2005 10:06 AM HGB 15.1 12/14/2005 10:06 AM HCT 43.9 12/14/2005 10:06 AM PLTS 276 12/14/2005 10:06 AM No results found for: INR Reason a test was not performed: Post-menopausal. Blood Bank: N/O BB ANTIBODY SCREEN (no units) Date Value 01/14/1998 NEG EKG: No results found for this or any previous visit. Physical Exam: There were no vitals taken for this visit. Assessment/Plan: Review of Systems NPO Status: Acceptable. Patient has GERD. GERD controlled with medication: sl nausea todya. Patient is not a current smoker. The patient reports alcohol use. Patient denies any recent URI. History of PONV: No. History of motion sickness: No. Patient denies any personal or family history of anesthesia complications (PONV). Exam Mental Status: Alert and oriented. Mallampati score: II (Two). Mouth opening: Normal Thyromental Distance: > 3 finger breadths and Normal Neck Extension: Full Neck Circumference > 40 cm?: No Previous airway assessment: Previously EASY intubation.,. Current airway assessment:Normal Cardiac Exam: Regular rate and rhythm. Respiratory Exam: Breath sounds clear to auscultation Assessment ASA Status: 3 . Plan Anesthesia type: General, ETT and Peripheral Nerve Block for Post- op Pain at Surgeon request Induction: Intravenous Maintenance: TIVA Postoperative pain management (PONV): Peripheral Nerve Block for Postop Analgesia at Surgeon's request PONV Risk Score Adult: 2 PONV Prophylaxis (planned): Ondansetron and Decadron Anesthetic plan, risks, benefits and alternatives discussed with: Patient or Newspaper Inserter agree tothe anesthesia treatment plan. Asymptomatic COVID + The patient and/or their industrial sales representative were notified about the potential risks of damage to the lips, teeth, dental devices, mouth and airway. H&P Reviewed and Patient examined, no change observed IV access Antibiotics per surgery Electronically signed by: Gwyn Padilla MD 12/23/2021 10:32 AM documented in this encounter Plan of Treatment Upcoming Encounters Date Type Specialty Care Team Description 06/15/2022 Appointment Orthopedics Vanna Ulloa MD [address] [place] [address] (Wo rk) documented as of this encounter Procedures Procedure Name Priority Date/Time Associated Diagnosis Comme nts PERIPHERAL BLOCK Routine 12/23/2021 11:13 AM Resu lts for this CDT procedure are i n the results section. documented in this encounter Results PERIPHERAL BLOCK (12/23/2021 11:13 AM CDT) Narrative EXTERNAL RESULTS - 12/23/2021 11:13 AM Gwyn Mcgill MD ? 12/31/2021 ??8:02 PM Peripheral Block Performed by: Gwyn Padilla MD Authorized by: Gwyn Padilla MD Patient Location: ??Preop Start Time: ??12/23/2021 11:03 AM End Time: ??12/23/2021 11:08 AM Performed by: ??Anesthesiologist Body area of block: ??Upper Extremity Upper Extremity Blocks: Supraclavicular ?? Laterality: ??Left Correct Position: ??Yes Correct Patient: ??Yes Correct Site: ??Yes Correct Procedure: ??Yes Correct Laterality: ??Yes Site Marked: ??Yes Checklist: post-operative analgesia only , risks and benefits discussed, patient agrees to proceed, IV checked, a nesthesia consent, monitors/equipment checked, surgical con sent and at surgeon's request ?? Prep: ??Chloraprep, Hat, Sterile gloves and Mask Monitoring: ??Blood pressure, cardiac mo nitor and continuous pulse oximetry Patient Position: ??Sitting Procedures: ultrasound guided ?? Needle Type: ??Insulated Needle Length: ??4 in Needle Gauge: ??21 G Pain on Injection: No ?? Blood aspirated?: No ?? Bolus given as slow fractionated injecti on?: Yes ?? Paresthesias?: ??No Bleeding at site?: ??No Ultrasound guided?: Yes ?? Ultrasound image saved/archived?: Yes ?? Ultrasound Interpretation: anatomic plan e and expected location of nerve appear normal, local anesthetic visualiz ed surrounding nerve, appropriate spread of the medication was noted in re al time, no ultrasound evidence of intravascular and/or intraneural injecti on, needle tip was noted to be adjacent to the nerve/plexus identified and needle and nerve visualized ?? Catheter placed?: No ?? Procedure Comments: ??If block is for po st-op pain, The surgeon has given a verbal order transferring care of this p atient to me for the performance of a regional analgesia block for post-o p pain control. It is requested of me because I am uniquely trained and keri lified to perform this block and the surgeon is neither trained nor quali fied to perform this procedure. Block and charting preformed by Gwyn dumas MD Signed by Gwyn Padilla MD Ropivacaine administered: ??Ropivacaine 0.5% (5 mg/mL) 5 MG/ML - Regional Nerve Block 30 mL - 12/23/2021 11:08:00 AM Dexamethasone administered: ??Dexamethas one PF 10 MG/ML - Intravenous 4 mg - 12/23/2021 11:08:00 AM Gwyn Padilla MD ANESTHESIA/AR Performing Organization Address City/State/ZIP Code Phon e Number EXTERNAL RESULTS documented in this encounter Visit Diagnoses Not on filedocumented in this encounter Administered Medications Inactive Administered Medications - up to 3 most recent administrations Medication Order MAR Action Action Date Dose Rate Site ceFAZolin (ANCEF) 3 g in sodium Bolus 12/23/2021 12:46 PM CDT 3 g chloride 0.9 % 50 mL IVPB 3 g, Intravenous, Administer over 30 Minutes, ONCE, On Tue12/23/21 at 1030, For 1 dose, Infuse within 60 minutes prior to incision Allergy to penicillin; consult day of surgery, check reaction history, assess previous surgical records, other antibiotics previously used by patient, & timeline of reactions if known: if reaction includes; rash, itching, GI disturbance, headache, hives, laryngeal edema, bronchospasm, angioedema, anaphylaxis, or a documented elevated serum tryptase after a reaction, or a vague reaction history: Administer ONLY cefazolin, DO NOT ADMINISTER ANY OTHER cephalosporin pre-operatively. Re-dose 2 gram IV every 4 hours after initial dose until incision closed., Pre-op Started 12/23/2021 12:34 PM CDT 3 g dexamethasone (DECADRON) injection Given 12/23/2021 12:56 PM CDT 4 mg Intravenous, Starting on Tue12/23/21 at 1256, Until Tue12/23/21 at 1452 dexamethasone PF (DECADRON) injection Given 12/23/2021 11:08 AM CDT 4 mg Intravenous, Starting on Tue12/23/21 at 1108, Until Tue12/23/21 at 1108 fentaNYL (SUBLIMAZE) injection Given 12/23/2021 12:43 PM CDT 50 mcg Intravenous, Starting on Tue12/23/21 at 1234, Until Tue12/23/21 at 1452 Given 12/23/2021 12:34 PM CDT 50 mcg glycopyrrolate (ROBINUL) injection Given 12/23/2021 12:34 PM CDT 0.2 mg Intravenous, Starting on Tue12/23/21 at 1234, Until Tue12/23/21 at 1452 ketorolac (TORADOL) injection Given 12/23/2021 1:49 PM CDT 15 mg Intravenous, Starting on Tue12/23/21 at 1349, Until Tue12/23/21 at 1452 lactated ringers infusion Started 12/23/2021 1:05 PM CDT Intravenous, at 30 mL/hr, CONTINUOUS, Starting on Tue12/23/21 at 1100, Pre-op Continue from Pre-Op 12/23/2021 12:34 PM CDT Started 12/23/2021 12:21 PM CDT midazolam (VERSED) injection Given 12/23/2021 12:34 PM CDT 2 mg Intravenous, Starting on Tue12/23/21 at 1234, Until Tue12/23/21 at 1452 ondansetron (ZOFRAN) injection Given 12/23/2021 12:43 PM CDT 4 mg Intravenous, Starting on Tue12/23/21 at 1243, Until Tue12/23/21 at 1452 phenylephrine (VAZCULEP) 50,000 mcg in Bolus 12/23/2021 1:32 PM CDT 100 mcg sodium chloride 0.9 % 500 mL (100 mcg/mL) infusion Intravenous, Starting on Tue12/23/21 at 1320 Started 12/23/2021 1:20 PM CDT 100 mcg propofol (DIPRIVAN) 10 mg/mL Rate/Dose 12/23/2021 1:41 130 mcg/kg/mi n 86.658 injection Change PM CDT mL/hr Intravenous, Starting on Tue12/23/21 at 1243, Until Tue12/23/21 at 1452 Started 12/23/2021 12:52 PM CDT 140 mcg/kg/min 93.324 mL/hr Given 12/23/2021 12:43 PM CDT 200 mg ropivacaine 0.5% (5 mg/mL) (NAROPIN) 5 MG/ML Given 02/2022 11:08 AM CDT 30 mL injection Regional Nerve Block, Starting on Tue12/23/21 at 1108, Until Tue12/23/21 at 1108 succinylcholine (QUELICIN) injection Given 12/23/2021 12:43 PM CDT 140 mg Intravenous, Starting on Tue12/23/21 at 1243, Until Tue12/23/21 at 1452 documented in this encounter Additional Health Concerns Infection Onset Date Last Indicated Resolved Time COVID19 12/22/2021 12/22/2021 01/02/2022 3:17 AM CDT documented as of this encounter Care Teams Ripsawyer Relationship Specialty Start Date End Date Sonia Pérez PA-C PCP - General Physician Rag Boiler 01/10/17 [address] [facility] [address] [place] [id number] documented as of this encounter
--- OUTSIDE RECORDS SUMMARY | 2022-04-22 13:57 | XMS_ITS | Encounter Summary ---
:1965 Author Organization [email or web address] Address [address] [place] [address] Care Team Providers Name Role Phone Sonia Pérez PA-C Primary Care Provider Reason for Visit Reason Comments Elbow Problem Encounter Details Date Type Department Care Team Description 03/09/2022 Office Visit [facility] Sisi Calderon, Instability of left elbow jaylon int (Primary Dx); [address] [facility] OTR/L Aftercare following surgery [place], [place] [address] [address] [facility] [phone] [place] [address] (Wo rk) Social History Tobacco Use Types Packs/Day Years Used Date Smoking Tobacco: Never Smokeless Tobacco: Never Comments: Quit smoking: Alcohol Use Standard Drinks/Week Comments Yes 0 (1 standard drink = 0.6 oz pure Alcoho lic Drinks/day: Amount:1-2 alcohol) drinks; Freq:2- ; Sex Assigned at Date Recorded Not on file documented as of this encounter Progress Notes Sisi Calderon, OTR/L - 03/09/2022 1:00 PM CDT [facility] Progress Note Referring Provider: Dr. Ulloa Referring Diagnosis: 1. Instability of left [...] to no difficulty in 90 days SUBJECTIVE: 3 months out from revision. Pt arrives in person today (previous few sessions have been via telehealth. Pt states she rode her trike this week (not recommended). OBJECTIVE: Pain: mild at rest, moderate with elbow motion. Edema: mild-moderate in digits, wrist/forearm; moderate at elbow AROM: Elbow AROM Right 01/26/2022 Left 12/29/2021 Left 01/05/2022 (measured on computer screen with goniometer) Left 01/12/22 L 01/21/2022 (over video at not a good angle) Left 01/26/2022 In person L 02/23/2022 (via video) L 03/09/2022 Extension/Flexion NT 45/90 50/100 41/96 45/130 36/107 45/125 30/130 Supination/Pronation 73/82 Near normal supination /NO pronation allowed. WNL/Not assessed WNL/Not assessed WNL/NT 65/60 NT 67/87 Near full fist with feeling of tightness. Same for finger extension. Strength: Deferred Sensation: Reported intact Scar: mildly tender, flat, but adherent at central portion TODAY'S TREATMENT INTERVENTION: Application of Long Arm Splint/Orthosis CPT 13525 (20 minutes untimed) A custom thermoplastic long arm splint/orthosis 3 point extension splint was fabricated for the patient. The patient was provided with written instructions on splint/orthosis care. Patient was instructed to wear splint at night or when sleeping. Patient can don and doff splint/orthosis independently. Therapeutic Exercise CPT 52868 (40 minutes): Remeasure of objective data. Reviewed current restrictions. Reviewed use arm for light daily function. Reviewed, performed and corrected technique for current HEP; Reviewed AROM and PROM and had pt demonstrate exercises, provided cuing and feedback to improve technique. Added wrist isotonics 1 lb 10 reps 1-2 times per day. Added gentle snuff grinder strengthening with stressball 1-2 minutes 2-3 times per day. Timed Code Treatment Minutes: 60 Total Treatment Minutes: 60 ASSESSMENT: Pt with gradually improving motion, lacking most in extension. PLAN: Recheck after MD 03/09/22 Pt prefers [...] needed Therapist Signature: Sisi Calderon MOTR/Gina CHT #[id number] Visit # 10 Payor: [employer] / Plan: [facility] PMAP / Product Type: Medicaid / documented in this encounter Plan of Treatment Upcoming Encounters Date Type Specialty Care Team Description 06/15/2022 Appointment Orthopedics Vanna Ulloa MD [address] [facility] [place] [address] (Wo rk) documented as of this encounter Visit Diagnoses Diagnosis Instability of left elbow joint - Primar y Aftercare following surgery Encounter for other specified aftercare documented in this encounter Care Teams Salesperson Sewing Machines Relationship Specialty Start Date End Date Sonia Pérez PA-C PCP - General Physician Gas Appliance Mechanic 01/10/[address] [facility] [address] [place] [address] documented as of this encounter
--- OUTSIDE RECORDS SUMMARY | 2022-04-22 13:57 | XMS_ITS | Encounter Summary ---
:1965 Author Organization [facility] Address [address] [place] [address] Care Team Providers Name Role Phone Sonia Pérez PA-C Primary Care Provider Reason for Visit Reason Comments Elbow Problem Therapies (Routine) - New Request Specialty Diagnoses / Procedures Referred By Contact Refer red To Contact Diagnoses Dislocation of left elbow, subsequent encounter Vanna Ulloa MD [address] [facility] [address] [place] [address] Referral ID Status Reason Start Date Expiration Date Visits V isits Requested Authorized [id number] New Request 01/26/2022 01/26/2023 1 1 Encounter Details Date Type Department Care Team Description 01/26/2022 Office Visit [facility] Rand Lebron, OTR/L Instability of left elbow joint (Primary Dx); [address] [facility] [address] [place] [address] Aftercare following surgery [place] [address] [place], [place] [phone] (Wo rk) Social History Tobacco Use Types Packs/Day Years Used Date Smoking Tobacco: Never Smokeless Tobacco: Never Comments: Quit smoking: Alcohol Use Standard Drinks/Week Comments Yes 0 (1 standard drink = 0.6 oz pure Alcoho lic Drinks/day: Amount:1-2 alcohol) drinks; Freq:2- ; Sex Assigned at Date Recorded Not on file documented as of this encounter Progress Notes Rand Lebron, OTR/L - 01/26/2022 12:30 PM CDT [facility] Progress Note Referring Provider: Vanna Ulloa Referring Diagnosis: 1. [...] SUBJECTIVE: 6 weeks out from revision. Pt saw MD and is seen in person for therapy today. She still prefers future visits to be video due to distance. Her stomach is not feeling well today and she expresses feeling anxious about going without the hinged brace support. OBJECTIVE: Pain: mild at rest, moderate with [...] portion TODAY'S TREATMENT INTERVENTION: Therapeutic Exercise CPT 95325 (35 minutes): New measures obtained and reviewed symptoms/function. She can d/c hinged brace and begin to use arm for light daily function. Reviewed, performed and corrected technique for current HEP; Instructed in and performed full AROM for pronation, as well as combined elbow extension and pronation; PROM for elbow flexion & extension; gravity-assisted positioning for gentle prolonged extension stretches. Instructed in and performed scar mobilization, issued additional tubigrip for edema control at nightand as needed. Educated on use of heat prior to exercises as able to improve mobility. Issued half sponge ball for light manager global communications squeezes for HEP. Timed Code Treatment Minutes: 35 Total Treatment Minutes: 35 ASSESSMENT: Painful, limited elbow motion; PLAN: Pt prefers video visits. Recheck weekly; [...] adjust patient's splint/orthosis as needed Therapist Signature: MIMI Real/Gina CHT #[id number] Visit # 7 [facility]: [facility] / Plan: [facility] PMAP / Product Type: Medicaid / documented in this encounter Plan of Treatment Upcoming Encounters Date Type Specialty Care Team Description 06/15/2022 Appointment Orthopedics Vanna Ulloa MD [address] [facility] [place] [address] (Wo rk) Scheduled Referrals Name Type Priority Associated Diagnoses Order S chedule Hand Therapy Consult Referral Routine Dislocation of left elbow, Ordered: 01/26/2022 subsequent encounter documented as of this encounter Visit Diagnoses Diagnosis Instability of left elbow joint - Primar y Aftercare following surgery Encounter for other specified aftercare documented in this encounter Care Teams Web Press Jogger Relationship Specialty Start Date End Date Sonia Pérez PA-C PCP - General Physician Project Executive 01/10/17 1601 [facility] [address] [place], [place] [address] documented as of this encounter
--- OUTSIDE RECORDS SUMMARY | 2022-04-22 13:57 | XMS_ITS | Encounter Summary ---
:1965 Author [facility] Address [address] [place] [address] Care Team Providers Name Role Phone Sonia Pérez PA-C Primary Care Provider Reason for Visit Procedure/Equipment (Routine) - Incomplete Specialty Diagnoses / Procedures Referred By Contact Refer red To Contact Diagnoses Postop check Vanna Ulloa MD Procedures XR Elbow Lt 3+ Views [address] [facility] [place] [address] Referral ID Status Reason Start Date Expiration Date Visits V isits Requested Authorized [id number] Incomplete 01/26/2022 04/27/2023 1 1 Encounter Details Date Type Department Care Team Description 01/26/2022 Ancillary Procedure [facility] Vanna Ulloa MD Postop check [address] [facility] [address] [facility] [place] [address] [place] [phone] (Wo rk) Social History Tobacco Use Types [...] 06/15/2022 Appointment Orthopedics Vanna Ulloa MD [address] [facility] [place] [address] (Wo rk) documented as of this encounter Procedures Procedure Name Priority Date/Time Associated Diagnosis Comme nts XR ELBOW LT 3+ Routine 01/26/2022 11:52 [...] surgery documented in this encounter Care Teams Accounting Manager Cpa Relationship Specialty Start Date End Date Sonia Pérez PA-C PCP - General Physician Automotive Engineer 01/10/17 [address] [facility] [address] [place] [address] documented as of this encounter
--- OUTSIDE RECORDS SUMMARY | 2022-04-22 13:57 | XMS_ITS | Encounter Summary ---
:1965 Author Organization [employer] Address [address] [place] [address] Care Team Providers Name Role Phone Sonia Pérez PA-C Primary Care Provider Reason for Visit Reason Comments Elbow Problem Therapies (Routine) - New Request Specialty Diagnoses / Procedures Referred By Contact Refer red To Contact Diagnoses Dislocation of left elbow, subsequent encounter Vanna Ulloa MD [address] [facility] [place] [address] Referral ID Status Reason Start Date Expiration Date Visits V isits Requested Authorized [id number] New Request 12/29/2021 12/29/2022 1 1 Encounter Details Date Type Department Care Team Description 12/29/2021 Office Visit [facility] Rosalinda Madsen, Aftercare following surgery (Primary Dx); [address] [facility] [address] OTR/L Instability of left elbow joint [place], [place] [address] 39[address] [facility] [phone] [address] [place] [address] (Wo rk) Social History Tobacco Use Types Packs/Day Years Used Date Smoking Tobacco: Never Smokeless Tobacco: Never Comments: Quit smoking: Alcohol Use Standard Drinks/Week Comments Yes 0 (1 standard drink = 0.6 oz pure Alcoho lic Drinks/day: Amount:1-2 alcohol) drinks; Freq:2- ; Sex Assigned at Date Recorded Not on file documented as of this encounter Progress Notes Rosalinda Madsen, OTR/L - 12/29/2021 2:00 PM CDT Hand Occupational Therapy - Re-Evaluation Insurance: Payor: [employer] / Plan: [facility] PMAP / Product Type: Medicaid / Referring Provider: Vanna Ulloa Referring Diagnosis: 1. Aftercare following surgery 2. [...] to no difficulty in 90 days SUBJECTIVE: Patient is 6 days s/p surgery and has been referred to hand therapy to transition to a splint and begin elbow motion. Patient comes in a W/C with boot on foot. OBJECTIVE: Pain: able control with prescribed meds Edema: Digits through the elbow after revision has moderate plus edema. Circumferential Measurement: (in cm) Date 12/04/21 12/04/21 Right Left 2 in. proximal.to elbow 34 34.0 Elbow crease 29 33.0 2 in. distal to elbow 30 33.0 AROM: Elbow AROM Right 12/29/2021 Left 12/29/2021 Extension/Flexion NT 45/90 Supination/Pronation NT Near normal supination /NO pronation allowed. Near full fist with feeling of tightness. Same for finger extension. Thumb opposition at this time is to tip of small with effort. Strength: Deferred Sensation: Patient reports some numbness / tingling in the fingers Wound/Incision: well healed, sutures intact, no sign of infection, closed Scar: to be assessed TODAY'S TREATMENT INTERVENTION: Therapeutic Exercise CPT 06589 (50 minutes): Re-evaluation of symptoms following fixation revision. - incision dressed with water proof dressing, tubigrip sleeve fit (patient also provided with stockinette) - Performed and Instructed: The patient was instructed in, performed and provided with written handouts for the following: Digital: AROM, Wrist: AROM, Elbow: AROM (patient will begin with ROM with splint on and will be done more AA due to pain/swelling/newness of moving the arm but will progress to ROM out of the splint at next therapy session), Shoulder: AROM (with consideration for NO shoulder abd/FA pron) Splint/Orthotic Fabrication: Left: elbow ossur hinged elbow orthosis (size universal with adjustments). Wearing will be per MD's specification (see orders above) . Timed Code Treatment Minutes: 15 Total Treatment Minutes: 60 ASSESSMENT: - patient demonstrated a good understanding [...] oriented. No apparent barriers to learning. PLAN: Patient would prefer video visits for hand therapy follow up appointments. Patient was instructed toschedule via telephone call to scheduling. She will be trying to schedule a nurse visit for suture removal next week. Plan for Next Treatment: assess response to treatment, AROM, soft tissue mobilization, remove sutures, scar management, edema control, review home exercise program, check splint/orthosis fit Frequency/Duration: 1 x week - The patient [...] with any questions or concerns. Therapist Signature: Rosalinda Madsen MS OTR/L [place] [id number] Visit # 3 Payor: [facility] / Plan: [facility] PMAP / Product Type: Medicaid / documented in this encounter Plan of Treatment Upcoming Encounters Date Type Specialty Care Team Description 06/15/2022 Appointment Orthopedics Vanna Ulloa MD [address] [facility] [place] [address] (Wo rk) Scheduled Referrals Name Type Priority Associated Diagnoses Order S chedule Hand Therapy Consult Referral Routine Dislocation of left elbow, Ordered: 12/29/2021 subsequent encounter documented as of this encounter Visit Diagnoses Diagnosis Aftercare following surgery - Primary Encounter for other specified aftercare Instability of left elbow joint documented in this encounter Additional Health Concerns Infection Onset Date Last Indicated Resolved Time COVID19 12/22/2021 12/22/2021 01/02/2022 3:17 AM CDT documented as of this encounter Care Teams Ict Support And Test Engineers Relationship Specialty Start Date End Date Sonia Pérez PA-C PCP - General Physician Airplane Gas Tank Liner Assembler 01/10/17 [address] [address] [place] [address] documented as of this encounter
--- OUTSIDE RECORDS SUMMARY | 2022-04-22 13:58 | XMS_ITS | Encounter Summary ---
:1965 Author [facility] Address [address] [place] [address] Care Team Providers Name Role Phone Sonia Pérez PA-C Primary Care Provider Reason for Referral Procedure/Equipment (Routine) - Incomplete Specialty Diagnoses / Procedures Referred By Contact Refer red To Contact Diagnoses Surgery, elective Vanna Ulloa MD Procedures CLYDE Fluoroscopy Up To [address] [facility] [place], [place] [address] Referral ID Status Reason Start Date Expiration Date Visits V isits Requested Authorized [id number] Incomplete 12/22/2021 03/23/2023 1 1 Encounter Details Date Type Department Care Team Description 12/22/2021 Notes/Orders [facility] Vanna Ulloa MD Surgery, elective CENTER [address] [place] [address] (Primary Dx) [address] [place], [place] [address] [phone] (Wo rk) Social History Tobacco Use Types [...] Vanna Ulloa MD [address] [facility] [place] [address] (Wo rk) documented as of this encounter Results CLYDE Fluoroscopy Up To 1 Hour (12/23/2021 1:53 PM CDT) Anatomical Region Laterality Modality Radiographic Imaging Specimen (Source) Anatomical Location Collection Method / Collectio n Time Received Time / Laterality Volume Narrative 12/23/2021 1:54 PM CDT These images were obtained during a surg ical procedure. Vanna Ulloa MD RAD NON-REPORTABLES documented in this encounter Visit Diagnoses Diagnosis Surgery, elective - Primary Unspecified elective surgery for purpose s other than remedying health states Surgery, elective Unspecified elective surgery for purpose s other than remedying health states documented in this encounter Care Teams Hazardous Substances Engineer Relationship Specialty Start Date End Date Sonia Pérez PA-C PCP - General Physician Forest Management Teacher 01/10/17 16[address] [facility] [address] [place], [place] [address] documented as of this encounter
--- OUTSIDE RECORDS SUMMARY | 2022-04-22 13:58 | XMS_ITS | Encounter Summary ---
:1965 Author Organization [facility] Address [address] [place] [address] Care Team Providers Name Role Phone Sonia Pérez PA-C Primary Care Provider Encounter Details Date Type Department Care Team Description 12/14/2021 Orders Only HIM DEPARTMENT Provider, Deysi torres [place] [address] Social History Tobacco Use Types Packs/Day Years Used Date Smoking Tobacco: Former Smokeless Tobacco: Never Comments: Quit smoking: Alcohol Use Standard Drinks/Week Comments Yes 0 (1 standard drink = 0.6 oz pure Alcoho lic Drinks/day: Amount:1-2 alcohol) drinks; Freq:- ; Sex Assigned at Date Recorded Not on file documented as of this encounter Plan of Treatment Upcoming Encounters Date Type Specialty Care Team Description 06/15/2022 Appointment Orthopedics Vanna Ulloa MD [address] [place], [place] [address] (Wo rk) documented as of this encounter Procedures Procedure Name Priority Date/Time Associated Diagnosis Comme nts EKG 12/14/2021 Results for thi s procedure are in the resu lts section. documented in this encounter Results EKG (12/14/2021) Narrative This result has an attachment that is no t available. Interface Provider EKG documented in this encounter Visit Diagnoses Not on filedocumented in this encounter Care Teams Solid Waste Division Supervisor Relationship Specialty Start Date End Date Sonia Pérez PA-C PCP - General Physician Cupola Tender Helper 01/10/[address] [facility] [address] [place] [address] documented as of this encounter
--- OUTSIDE RECORDS SUMMARY | 2022-04-22 13:58 | XMS_ITS | Encounter Summary ---
:1965 Author Organization [employer] Address [address] [facility] [address] Care Team Providers Name Role Phone Sonia Pérez PA-C Primary Care Provider Reason for Referral (Routine) - Incomplete Specialty Diagnoses / Procedures Referred By Contact Refer red To Contact Procedures Suri Blake MD Anesthesia Guided Block [address] [place], [place] [address] Referral ID Status Reason Start Date Expiration Date Visits V isits Requested Authorized [id number] Incomplete 12/14/2021 03/15/2023 1 1 Encounter Details Date Type Department Care Team Description 12/14/2021 Hospital Encounter [facility] Vanna Ulloa MD [address] [facility] [address] [address] [facility] [place], [place] [address] [place], [place] [phone] (Wo rk) Social History Tobacco Use Types Packs/Day Years Used Date Smoking Tobacco: Former Smokeless Tobacco: Never Tobacco Cessation: Counseling Given: Not Answered Comments: Quit smoking: Alcohol Use Standard Drinks/Week Comments Yes 0 (1 standard drink = 0.6 oz pure Alcoho lic Drinks/day: Amount:1-2 alcohol) drinks; Freq:- ; Sex Assigned at Date Recorded Not on file documented as of this encounter Last Filed Vital Signs Vital Sign Reading Time Taken Comments Blood Pressure 123/78 12/14/2021 6:15 PM CDT Pulse 82 12/14/2021 6:15 PM CDT Temperature 36.5 ??C (97.7 ??F) 12/14/2021 5:30 PM CDT Respiratory Rate 16 12/14/2021 6:15 PM CDT Oxygen Saturation 94% 12/14/2021 6:15 PM CDT Inhaled Oxygen Concentration - - Weight 111.1 kg (245 lb) 12/14/2021 10:11 AM CDT Height 167.6 cm (5' 6) 12/14/2021 10:11 AM CDT Body Mass Index 39.54 12/14/2021 10:11 AM CDT documented in this encounter Medications at Time of Discharge Medication Sig Dispensed Refills Start Date End Date ACCU-CHEK FARTUN PLUS Use to test three 300 Strip 3 08/04/19 17 test strip times daily before meals. Code E11.9 acetaminophen (TYLENOL) Take 1 Tablet (500 100 Tablet 11 05/2021 500 MG tablet mg) by mouth every 4 hours as needed for Pain (Mild Pain). Maximum acetaminophen dose is 4000 mg in 24 hours ALBUterol sulfate HFA Inhale 1-2 Puffs. 0 019 108 (90 Base) MCG/ACT inhaler aspirin EC 81 MG Take 1 tablet by 100 tablet 13 05/07/2013 enteric coated mouth daily (every 24 tabletIndications: hours). Chronic rhinitis bisacodyl (DULCOLAX) 5 Take 1 Tablet (5 mg) 30 Tablet 0 MG enteric coated by mouth daily as tablet needed for Constipation (pain medication can cause constipation). blood glucose test Use 1 strip as 100 strip 6 12/02/2014 stripIndications: instructed 3 times Diabetes type 2, daily. uncontrolled Jrvkfnt-Eelhpxeva-Vldm Take 1 Tablet by 0 017 333-133-5 MG mouth. Coenzyme Q10 100 MG Take 100 mg by mouth. 0 12/01 cyclobenzaprine Take 1 tablet by 30 tablet 0 11/24/2015 (FLEXERIL) 5 MG mouth 3 times daily tabletIndications: Rib as needed for Muscle contusion, right, spasms. initial encounter desvenlafaxine Take 100 mg by mouth. 0 10/05/2016 (PRISTIQ) 50 MG 24 hour release tablet dulaglutide (TRULICITY) Inject 1 Pen 10 Pen 0 02/03/2016 0.75 MG/0.5ML injection subcutaneously once a penIndications: Type 2 week. diabetes mellitus, controlled (HRC) DULoxetine (CYMBALTA) Take 30 mg by mouth. 0 09/15 30 MG capsule eszopiclone (LUNESTA) 2 Take by mouth daily 0 MG tablet at bedtime. fluticasone (FLONASE) SHAKE LIQUID AND USE 48 g 0 03/17 50 MCG/ACT nasal 2 SPRAYS IN EACH solutionIndications: NOSTRIL DAILY Chronic rhinitis folic acid 1 MG tablet Take 1 mg by mouth. 0 11/13 gabapentin (NEURONTIN) Take 400 mg in the 270 Cap 3 03/15 400 MG morning and 800 mg in capsuleIndications: the evening. Peripheral polyneuropathy hydrOXYzine HCl Take 1 Tablet (25 mg) 15 Tablet 0 2 (ATARAX) 25 MG tablet by mouth every 6 hours as needed for Itching, Anxiety or Pain. ibuprofen (MOTRIN) 200 Take 2 Tablets (400 100 Tablet 0 05/2021 MG tablet mg) by mouth every 6 hours as needed for Pain (Mild Pain). This may be safely mixed with the prescription pain medications (oxycodone, hydrocodone or tramadol.)?? This may also be safely mixed with acetaminophen. insulin pen needle (BD Inject subcutaneously 200 Each 3 PEN NEEDLE JUHI U/F) two times a day. 32G X 4 MM LANTUS SOLOSTAR 100 Inject 0 06/10/2021 UNIT/ML pen subcutaneously. levonorgestrel (MIRENA) 1 Device by 0 11/03/2016 20 MCG/24HR IUD Intrauterine route. lisinopril (ZESTRIL) 20 TAKE 1 TABLET BY 90 Tab 1 2016 MG tablet MOUTH EVERY DAY LORazepam (ATIVAN) 0.5 Take 0.5 mg by mouth. 0 MG tablet meclizine (ANTIVERT) Take 12.5 mg by 0 04/23/2019 12.5 MG tablet mouth. melatonin 3 MG tablet Take 1 Tablet (3 mg) 100 Tablet 0 080 05/2021 by mouth at bedtime as needed for Insomnia. metFORMIN (GLUCOPHAGE Take 3 tablets by 270 tablet 1 016 XR) 500 MG 24 hour mouth daily (every 24 release hours). tabletIndications: Type 2 diabetes mellitus, controlled (HRC) metoclopramide (REGLAN) Take 10 mg by mouth. 0 10 MG tablet Multiple Take 1 tablet by 100 0 04/25/2009 Vitamins-Minerals mouth daily (every 24 (MULTIVITAMIN OR) hours). omega-3 fatty acids daily (every 24 0 04/25/2009 (MAXEPA,FISHOIL) 1000 hours). MG capsule [id number] ethyl Take 1 g by mouth. 0 9 esters (LOVAZA) 1 g capsule omeprazole ([facility] Take 1 tablet by 90 3 08/18/2010 OMEPRAZOLE) 20 MG mouth daily (every 24 enteric coated tablet hours). LW Comment:flex spending account LW Addl Instr:Indicated for: Acid Reflux ondansetron Place 4 mg under 0 04/23/2019 (ZOFRAN-ODT) 4 MG tongue. disintegrating tablet prochlorperazine Take 5-10 mg by 0 04/19/2019 (COMPAZINE) 5 MG tablet mouth. promethazine Take 1 Tablet by 0 04/27/2018 (PHENERGAN) 25 MG mouth. tablet raNITIdine (ZANTAC) 75 Take 75 mg by mouth. 0 MG tablet rosuvastatin (CRESTOR) Take 20 mg by mouth 0 09/13 20 MG tablet daily at bedtime. temazepam (RESTORIL) 15 Take 15 mg by mouth. 0 MG capsule TRULICITY 0.75 MG/0.5ML INJECT 0.75MG 2 mL 2 6 SOPN SUBCUTANEOUSLY ONCE A WEEK VICTOZA 18 MG/3ML SOPN Inject 1.8 mg 0 11/22/2021 injection subcutaneously daily. oxyCODONE (ROXICODONE) Take 1 Tablet (5 mg) 20 Tablet 0 06/202112/19/2021 5 MG immediate release by mouth every 4 tablet hours as needed for Pain (OK to take every 2 hours if needed. May be safely mixed with ibuprofen or tylenol.) for up to 4 days. acetaminophen (TYLENOL) Take 1 Tablet (500 100 Tablet 11 11/1312/23/2021 500 MG tablet mg) by mouth every 4 hours as needed for Pain (Mild Pain). Maximum acetaminophen dose is 4000 mg in 24 hours HYDROcodone-acetaminoph Take 1-2 Tablets by 20 Tablet 0 05/202112/23/2021 en (NORCO) 5-325 MG mouth every 4 hours tablet as needed for Pain (Severe). HYDROcodone-acetaminoph Take 1 Tablet by 12 Tablet 0 202112/15/2021 en (NORCO) 5-325 MG mouth every 6 hours tablet as needed for Pain for up to 5 days. ibuprofen (MOTRIN) 200 Take 600 mg by mouth. 0 12/23/2021 MG tablet oxyCODONE (ROXICODONE) Take 1-2 Tablets 20 Tablet 0 022 12/15/2021 5 MG immediate release (5-10 mg) by mouth tablet every 4 hours as needed for Pain (OK to take every 2 hours if needed. May be safely mixed with ibuprofen or tylenol.) for up to 4 days. documented as of this encounter Procedure Notes Evans Hopson MD - 12/14/2021 12:55 PM CDT [facility] Brief Operative Progress Note Surgery Date: 12/14/2021 Surgeon(s) and Role: * Vanna Ulloa MD - Primary * Evans Hopson MD - Resident - Assisting Pre-op Diagnosis: Left Elbow Instability Post-op Diagnosis: Same Procedure(s) (LRB): Revision open reduction internal fixation LEFT elbow fracture dislocation (Left) EBL: 50 cc Specimens: * No specimens in log * Complications / Findings: Stable, concentric elbow joint after application of internal fixation. Avulsed LUCL, successfully repaired with suture anchors x2. Plan: NWB LUE Splint until follow up 2 week follow up APAP, Ibuprofen, Oxy for breakthrough. Evans Hopson MD Orthopaedic Surgery, PGY-4 Vanna Ulloa MD - 12/14/2021 12:00 AM CDT NAME: LIZ [facility]EC[facility]: [id number] OPERATIVE REPORT DATE OF SURGERY: 12/14/2021 : 1965 SURGEON: VANNA ULLOA MD PREOPERATIVE DIAGNOSIS: Left elbow instability. POSTOPERATIVE DIAGNOSIS: Left elbow instability. PROCEDURE: Revision open reduction and internal fixation, left elbow dislocation. ANESTHESIA: General with a block for perioperative management. ADULT EDUCATION MANAGER: Evans Hopson MD, PGY-4. POSITION: Supine. ESTIMATED BLOOD LOSS: 50 mL. TOURNIQUET TIME: 127 minutes. COMPLICATIONS: None noted. IMPLANTS: 1.A skeletal Dynamics internal joint stabilizer for the elbow with a 50 mm pin and three cortical screws measuring 34 mm, 24 mm, and 22 mm. 2.An Arthrex 2.8 mm PushLock anchor and a 1.7 mm FiberTak anchor. SPECIMENS: None sent. HISTORY OF PRESENT ILLNESS: Liz is a 56-year-old woman, who had a subacute elbow dislocation for which I did internal fixation of the coronoid fragment and lateral ulnar collateral ligament repair onJuly . When she returned two weeks later, it was noted on x-ray that the elbow was subluxated again. She and I discussed by phone and then again today the next steps, which would include internal fixation using an internal joint stabilizer as well as revision repair of lateral ulnar collateral ligament, coronoid, or medial collateral ligament if needed. This included 30% rate of reoperation for elbow stiffness and another 10% to 20% rate of need for hardware removal or repeat surgery for some other reason. DESCRIPTION OF PROCEDURE: I identified and marked the correct site in preinduction. She was taken tothe operating room and administered a block and a dose of antibiotic. The left arm was prepped and draped and a sterile tourniquet was placed and set at 250 mmHg. However, the patient was restless despite the block being affective and therefore, decision was made to place her under a general anesthetic. This was done before any incision was made. The arm was then adducted over the body and the previous posterior incision was used. It was opened first with a scalpel and then somewhat bluntly. The medial side had never been elevated and this was not necessary again at this time. I elevated the lateral flap and sutured it back with 0 Prolene. The previously repaired King interval was opened. The lateral ulnar collateral ligament tissue had been pulled away from the repair. I was not able to find the anchor, as it was very flushed. It seemed the suture was elongated at the insertion site to the anchor rendering it the repair ineffective at this point. If the elbow was extended and the forearm supinated, it looked well reduced. On the lateral view with the shoulder abducted and the forearm pronated, there was clear subluxation. Thus, my assumption is the repair failed due to body habitus and heavy arm in pronation and shoulder abduction. I proceeded to remove all of the FiberWire and Ethibond from the lateral structures. There was still a good deep lateral collateral ligament set of fibers that had good tissue for later repair about a centimeter wide. Once the suture was cut and this was retracted, the distal aspect of the capitellum was bare. I was able to subluxate the joint with a rotatory force, but the coronoid fragment and capsule repair still seemed to be intact and I was unable to anteriorly translate or move the capsule away. I irrigated the joint. There was a modest amount of joint fluid, but nothing unexpected. No need for cultures. I first marked the point of isometry on the di stal humerus. I then slipped the trochlear guide into the trochlea and tried to align it well. Firstattempt at inserting the guidepin into the rotatory center yielded a pin that was slightly too anteriorly placed. Therefore, I made a couple of adjustments before being satisfied with the alignment of the 1.5 mm guidepin in the center of rotation of the trochlea. This was inserted short of the medial cortex. It measured 52 mm and I chose a 50 mm smooth pin. The guide was then removed and I drilled over the guidepin through up to 50 mm. I then placed the plate onto the dorsal border of the ulna. The plate and screw holes were immediately over the previously placed anchor and suture for the coronoid fracture. Therefore, it took some adjusting to place the more proximal distal slotted hole just distal to my anchor. Once I was satisfiedwith the length and trajectory of this, I tightened it down and tested the construct. I inserted thesmooth pin into the internal stabilizer and placed it into the capitellum. The elbow was taken through a range of motion and it appeared to be stable and concentric with easy rotation around the smoothpin. I then loosened everything and placed the two remaining screws under C-arm guidance. They were b oth compression screws and were placed to avoid the articular surface, one into the tip of the olecranon and the other more distally into the shaft of the ulna. I previously stressed the medial elbow and found that there was no opening medially, somewhat to my surprise. Therefore, I proceeded to simply re-repair the lateral ulnar collateral ligament with localtissue as this seemed sufficient. I first placed the 1.7 mm anchor distal to the smooth PEG hole, randi ing care to avoid it. I placed a #2 FiberWire Krackow stitch with two limbs proximal to distal and then distal to proximal in the lateral ulnar collateral ligament tissue. This was then drawn up to thelateral epicondyle. A PushLock anchor hole was drilled adjacent to the smooth pin hole and avoiding it by aiming posterior and proximal. The PushLock anchor was then inserted and the FiberWire tails were drawn through the anchor. The elbow was carefully reduced and the anchor was tensioned and inserted into the hole. Prior to tensioning, the FiberTak from the more distal anchor was placed up through the tissue of the lateral ulnar collateral ligament and this was then tied down over the lateral ulnar collateral ligament tissue to draw it down to the bony footprint. The internal joint stabilizer wasthen reassembled and inserted into the hole for the guidepin and the screws were loosened. The elbowwas flexed to reduce the joint. The clamp was then tightened, followed by the other clamp. The elbowwas placed through a range of motion and again, had apparently full extension and full flexion with minimal force across the elbow joint. The outrigger pin was then trimmed. All the screws were carefully tightened again. The wound was irrigated with Pulsavac and the tourniquet was deflated. The fasciarent was repaired with interrupted 0 Ethibond stitches and the skin was closed with 2-0 Vicryl and 3-0 nylon interrupted stitches. She was placed into a sterile soft dressing, followed by a long-arm posterior splint. POSTOPERATIVE PLAN: She will remain in the splint for a week. Return in one week for splint off, AP and lateral x-ray of the left elbow. She should bring her hinged elbow brace to start range of motion. Strict instructions will be given for her to avoid shoulder abduction, especially with the arm pronated. This may be difficult with her body habitus. When she does range of motion, she will be allowed full active assisted and passive range of motion,followed by active range of motion in the elbow brace. May remove the brace once it is placed for shower. Total time in the brace will be 6 weeks. No intention to remove internal joint stabilizer unless there are problems. I gave her 20 [place]. I called the pharmacy as they have had trouble filling repeated prescriptions. She should be able to fill it based on her last fill of 12, which is a 3-day supply that was done 2 days ago. Discouraged any further refills. VANNA ULLOA MD DCB/AQS /[id number] documented in this encounter Plan of Treatment Upcoming Encounters Date Type Specialty Care Team Description 06/15/2022 Appointment Orthopedics Vanna Ulloa MD [address] [place] [address] (Wo rk) documented as of this encounter Procedures Procedure Name Priority Date/Time Associated Comments Diagnosis GLUCOSE, WHOLE BLOOD Routine 12/14/2021 4:48 PM R esults for this POCT CDT procedure are i n the results section. OPEN REDUCTION 12/14/2021 4:37 PM Elbow pain, left INTERNAL FIXATION CDT ELBOW FRACTURE US ANESTHESIA GUIDED Routine 12/14/2021 10:38 AM Results for this BLOCK CDT procedure are i n the results section. GLUCOSE, WHOLE BLOOD Routine 12/14/2021 9:57 AM R esults for this POCT CDT procedure are i n the results section. documented in this encounter Results (ABNORMAL) Glucose, Whole Blood POCT (12/14/2021 4:48 PM CDT) [facility] Method Time Signature Glucose, Whole 183 (H) 70 - 180 12/14/2021 [facility] Blood mg/dL 4:50 PM CDT LABORATORY Performing [facility] 12/14/2021 [facility] Location 4:50 PM CDT LABORATORY Specimen Anatomical Collection Method Collection Time Receive d Time (Source) Location / / Volume Laterality Blood 12/14/2021 4:48 PM 2 4:50 CDT PM CDT Vanna Ulloa MD LAB_1 Performing Organization Address [facility] Phon e Number [facility] [address] [place] [address] US Anesthesia Guided Block (12/14/2021 10:38 AM CDT) Anatomical Region Laterality Modality Ultrasound Specimen (Source) Anatomical Location Collection Method / Collectio n Time Received Time / Laterality Volume Narrative 12/14/2021 10:38 AM CDT If an Anesthesia block was performed please see the Anesthesia encounter for documentation. ??This procedure was performed and interpreted by the performing provider. ?? Suri Blake MD [facility] Glucose, Whole Blood POCT (12/14/2021 9:57 AM CDT) [facility] gist Method Time Signature Glucose, Whole 149 70 - 180 12/14/2021 [facility] Blood mg/dL 10:32 AM CDT LABORATORY Performing [facility] 12/14/2021 [facility] Location 10:32 AM CDT LABORATORY Specimen Anatomical Collection Method Collection Time Receive d Time (Source) Location / / Volume Laterality Blood 12/14/2021 9:57 AM 2 CDT 10:32 AM CDT Vanna Ulloa MD LAB_1 Performing Organization Address [facility] Phon e Number [facility] [address] [place] [address] documented in this encounter Visit Diagnoses Not on filedocumented in this encounter Administered Medications Inactive Administered Medications - up to 3 most recent administrations Medication Order MAR Action Action Date Dose Rate Site celecoxib (CeleBREX) capsule 400 Given 12/14/2021 10:32 AM CDT 4 00 mg mg 400 mg, Oral, ONCE, On 12/14/21 at 1015, For 1 dose, Pre-op dextrose 5 % infusion at 250 mL/hr, ONCE PRN, Other, for nausea if all other options have failed and patient is not diabetic., Starting on Mo n 12/14/21 at 0949, For 1 dose, PACU/Recovery diphenhydrAMINE (BENADRYL) injection 25 mg 25 mg, Intravenous, ONCE PRN, Other, for Nausea or Vomiting, Starting on Tue12/14/21 at 0949, Until Tue12/14/21 at 2028, For 1 dose, If multiple medications are ordered for nausea or vomiting - administer in t he following priority based on medications ordered, effectiveness and availability: ondansetron (ZOFRAN) > prochlorperazine (COMPAZINE) > diphenhydrAMINE (BENADRYL) > hydrOXYzine HCl (VISTARIL)> ePHEDrine > scopolamine (TRANSDERM-SCOP)., PACU/Recovery ePHEDrine injection 25 mg 25 mg, Intramuscular, ONCE PRN, Other, for nausea or v omiting, Starting on Tue12/14/21 at 0949, For 1 dose, If multiple medications ar e ordered for nausea or vomiting - administer in the following priority based on medications ordered, effectiveness and availability: ondanset soheila (ZOFRAN) > prochlorperazine (COMPAZINE) > diphenhydrAMINE (BENADRYL) > hydrOXYzi ne HCl (VISTARIL)> ePHEDrine > scopolamine (TRANSDERM-SCOP)., PACU/Recovery fentaNYL (SUBLIMAZE) injection 25-50 mcg 25-50 mcg, Intravenous, [id number], Other, 25 mcg for Mi ld to Moderate Pain (pain score 1-5), 50 mcg for Moderate to Severe Pain (pain s core 6 and above) in the immediate postop period when faster on-set, short acti ng agent is desired., Starting on Tue12/14/21 at 0949, Until Tue12/14/21 at 20 29, Administer every 5 minutes as needed, to a maximum cumulati ve dose of 250 mcg. Call Anesthesiologist if additional dose needed For patients with a regional , spinal, or local anesthetic, may give for anticipated niels n as the anesthetic wears off. Use fentanyl initially for a short acting agent for t reatment of acute post-operative pain. May be used in conjunction with a longer acting agent if o rdered for optimal pain control. Respiratory rate must be greater than 10 to a dminister medications., PACU/Recovery fentaNYL (SUBLIMAZE) injection 25-50 mcg Given 12/14/2021 11:42 AM CDT 50 mcg 25-50 mcg, Intravenous, [id number], Pain, Procedure, Starting on Tue12/14/21 at 1038, Until Tue12/14/21 at 2028, For 2 doses, As directed by anesthesiologist, Pre-op hydrALAZINE (APRESOLINE) injection 5 mg 5 mg, Intravenous, Q10MIN PRN, Other, Hi gh Blood Pressure, MAX 4 doses, hold for HR <50, Starting on Tue12/14/21 at 0949, Unt il Tue12/14/21 at 2028, For 4 doses, Call Anesthesiologist before administration. Give as direct ed by Anesthesiologist., PACU/Recovery hydrOXYzine HCl (VISTARIL) injection 25 mg 25 mg, Intramuscular, ONCE PRN, Nausea/V omiting, Starting on Tue12/14/21 at 0949, Until Tue12/14/21 at 2028, For 1 dose, If multiple medi cations are ordered for nausea or vomiting - administer in the following prior ity based on medications ordered, effectiveness and availability: ondansetron (ZOFRAN) > prochlorperazine (COMPAZINE) > diphenhydrAMINE (BENADRYL) > hydrOXYzine HCl (VISTARIL)> ePHEDrine > scopolamine (TRANSDERM-SCOP)., PACU/Recovery ketorolac (TORADOL) injection 15 mg Given 12/14/2021 5:48 PM CDT 15 mg 15 mg, Intravenous, ONCE, On Tue12/14/21 at 1715, For 1 dose, Post-op labetalol (NORMODYNE) injection 5 mg 5 mg, Intravenous, Q10MIN PRN, Other, Hi gh Blood Pressure, MAX 5 doses, hold for HR <50, Starting on Tue12/14/21 at 0949, Unt il Tue12/14/21 at 2028, For 5 doses, Call Anesthesiologist before administration. Give as direct ed by Anesthesiologist., PACU/Recovery lactated ringers infusion Started 12/14/2021 2:16 PM CDT Intravenous, at 30 mL/hr, CONTINUOUS, Starting on Tue12/14/21 at 1100, Pre-op Restarted 12/14/2021 12:55 PM CDT Started 12/14/2021 10:35 AM CDT 30 mL/hr midazolam (VERSED) injection 0.5-1 mg 0.5-1 mg, Intravenous, [id number], Anxiety , Starting on Tue12/14/21 at 0949, Until Tue12/14/21 at 2028, Maximum cumulative dose is 2 mg. TO BE GIVEN IN PACU ONLY., PACU/Recovery midazolam (VERSED) injection 1-2 mg Given 12/14/2021 11:42 AM CDT 1 mg 1-2 mg, Intravenous, [id number], Sedation, Anxiety, Procedure, Starting on Tue12/14/21 at 1038, Until Tue12/14/21 at 2028, As directed by anesthesiologist MAX Dose 2mg, Pre-op naloxone (NARCAN) injection 0.08 mg 0.08 mg, Intravenous, PRN, Other, For respiratory rate less than 8/minute or patient difficult to arouse, Starting on Tue12/14/21 at 0949, Until Tue12/14/21 at 2028, May repeat every 3 minutes or until patient is r esponsive to physical stimulation and is able to take deep hong aths. Maximum cumulative dose is 0.4 mg (1 mL). Continue to observe; if no response after administering total dose of 0.4 mg notify anesthesiologist STAT., PACU/Recovery naloxone (NARCAN) injection 0.4 mg 0.4 mg, Intravenous, ONCE PRN, Opioid Reversal, Starti ng on Tue12/14/21 at 0949, Until Tue12/14/21 at 2028, For 1 dose, Fo r imminent respiratory arrest. Notify MD if naloxone is given., PACU/Recovery ondansetron (ZOFRAN) injection 4 mg 4 mg, Intravenous, Q4H PRN, Nausea, Vomi ting, Starting on Tue12/14/21 at 0949, Until Tue12/14/21 at 2028, If multiple medicati ons are ordered for nausea or vomiting - administer in the following priority bas ed on medications ordered, effectiveness and availability: ondansetron (ZOFRAN) > prochlorperaz ine (COMPAZINE) > diphenhydrAMINE (BENADRYL) > hydrOXYzine HCl (VISTARIL)> ePHEDrine > scopolamine (TRANSDERM-SCOP)., PACU/Recovery prochlorperazine (COMPAZINE) injection 5 mg 5 mg, Intravenous, Q15MIN PRN, Nausea, V omiting, Starting on Tue12/14/21 at 0949, Until Tue12/14/21 at 2028, For 2 doses, 2 nd dose may be given in 15-30 minutes if first dose not effective. Maximum of 2 doses only. If multiple medications are ordered for nausea or vomiting - administer in the fol lowing priority based on medications ordered, effectiveness and availability: o ndansetron (ZOFRAN) > prochlorperazine (COMPAZINE) > diphenhydrAMINE (BENADR YL) > hydrOXYzine HCl (VISTARIL)> ePHEDrine > scopolamine (TRANSDERM-SCOP)., PACU/Recovery documented in this encounter Active and Recently Administered Medications Times are shown in CDT. Scheduled Medication Order 12/12/2021 12/13/2021 12/14/2021 acetaminophen (TYLENOL) tablet 1,000 mg 1715 (Due) 1,000 mg, Oral, ONCE, On Tue12/14/21 at 1715, For 1 dose, Post-op ceFAZolin (ANCEF) 2 g in sodium chloride 0.9 % 50 mL IVPB (COMPL ETED) 1259 (Started - Provider: Yaya Aponte, SAND CONDITIONER MACHINE, [facility]) 2 g, Intravenous, Administer over 30 Min utes, ONCE, On Tue12/14/21 at 1015, For 1 dose, Infuse within 60 minutes prior to incision Allergy to penicillin; consult day of surgery, check reaction history, a ssess previous surgical Allergy to penic illin; consult day of surgery, check reaction history, assess previous surgical records, other antibiotics previously used by patient, & timeline of reactions if known: if reaction includes; rash, i tching, GI disturbance, headache, hives, laryngeal edema, bronchospasm, angioedema, anaphylaxis, or a documented elevated serum tryptase after a reaction, or a va sandee reaction history: Administer ONLY ce fazolin, DO NOT ADMINISTER ANY OTHER cephalosporin pre-operatively. Re-dose 1 gram IV every 4 hours after initial dose until incision closed., Pre-op celecoxib (CeleBREX) capsule 400 mg (COMPLETED) 1032 (Given - Provider: Veronica Horta, DEBI) 400 mg, Oral, ONCE, On Tue12/14/21 at 1015, For 1 dose, Pre-op dexamethasone (DECADRON) injection 8 mg (COMPLETED) 1533 (Given - Provider: Andressa Gastelum APRN, LOG SORTING SUPERVISOR - Comment: per surgeon's request) 8 mg, Intravenous, ONCE, On Tue12/14/21 a t 1015, For 1 dose, To be given by LOG SORTING SUPERVISOR in OR prior to induction. DO NOT give if patient is diabetic., Pre-op ketorolac (TORADOL) injection 15 mg (COMPLETED) 1748 (Given - Provider: Kailee Sullivan, DEBI) 15 mg, Intravenous, ONCE, On Tue12/14/21 at 1715, For 1 dose, Pos t-op ondansetron (ZOFRAN) injection 4 mg 1714 (Due) 4 mg, Intravenous, ONCE, On Tue12/14/21 at 1715, For 1 dose, Post -op Continuous Medication Order 12/12/2021 12/13/2021 12/14/2021 lactated ringers infusion 1035 ( Started - Provider: Kimberly Quijano)1254 (Stopped - Provider: Yaya Aponte APRN, JULIAN - Comment: Switch to gravity)1255 (Restarted - Provider: Yaya Aponte APRN, LOG SORTING SUPERVISOR)1416 (Started - Provider: Yaya Aponte APRN, LOG SORTING SUPERVISOR) Intravenous, at 30 mL/hr, CONTINUOUS, Starting on Tue12/14/21 at 1100, Pre-op 1644 (Anesthesia Fluid - Provider: Andressa Gastelum APRN, LOG SORTING SUPERVISOR) PRN Medication Order 12/12/2021 12/13/2021 12/14/2021 dextrose 5 % infusion at 250 mL/hr, ONCE PRN, Other, for nause a if all other options have failed and patient is not diabetic., Starting on Tue12/14/21 at 0949, For 1 dose, PACU/Recovery diphenhydrAMINE (BENADRYL) injection 25 mg 25 mg, Intravenous, ONCE PRN, Other, for Nausea or Vomiting, Starting on Tue12/14/21 at 0949, Until Tue12/14/21 at 2028, For 1 dose, If multiple medications are ordered for nausea or vomiting - administer in the following priority based on medi cations ordered, effectiveness and availability: ondansetron (ZOFRAN) > prochlorperazine (COMPAZINE) > diphenhydrAMINE (BENADRYL) > hydrOXYzine HCl (VIST ARIL)> ePHEDrine > scopolamine (TRANSDERM-SCOP)., PACU/Recovery ePHEDrine injection 25 mg 25 mg, Intramuscular, ONCE PRN, Other, f or nausea or vomiting, Starting on Tue12/14/21 at 0949, For 1 dose, If multiple medications are ordered for nausea or vomiting - administer in the following priori ty based on medications ordered, effecti veness and availability: ondansetron (ZOFRAN) > prochlorperazine (COMPAZINE) > diphenhydrAMINE (BENADRYL) > hydrOXYzine HCl (VISTARIL)> ePHEDrine > scopolamine (TRANSDERM-SCOP)., PACU/Recovery fentaNYL (SUBLIMAZE) injection 25-50 mcg 25-50 mcg, Intravenous, [id number], Other, 25 mcg for Mild to Moderate Pain (pain score 1-5), 50 mcg for Moderate to Severe Pain (pain score 6 and above) in the immediate postop period when faster on-set, short acting agent is desired., Startin g on Tue12/14/21 at 0949, Until Tue12/14/21 at 2028, Administer every 5 minutes as needed, to a maximum cumulative dose of 250 mcg. Call Anesthesiologist if additio nal dose needed For patients with a sukhi onal, spinal, or local anesthetic, may give for anticipated pain as the anesthetic wears off. Use fentanyl initially for a short acting agent for treatment of acu te post-operative pain. May be used in c onjunction with a longer acting agent if ordered for optimal pain control. Respiratory rate must be greater than 10 to administer medications., PACU/Recovery fentaNYL (SUBLIMAZE) injection 25-50 mcg 1142 (Given - Provider: Kasandra Horn RN) 25-50 mcg, Intravenous, [id number], Pain, Procedure, Starting on Tue12/14/21 at 1038, Until Tue12/14/21 at 2028, For 2 doses, As directed by anesthesiologist, Pre-op hydrALAZINE (APRESOLINE) injection 5 mg 5 mg, Intravenous, Q10MIN PRN, Other, Hi gh Blood Pressure, MAX 4 doses, hold for HR <50, Starting on Tue12/14/21 at 0949, Until Tue12/14/21 at 2028, For 4 doses, Call Anesthesiologist before administra tion. Give as directed by Anesthesiologist., PACU/Recovery hydrOXYzine HCl (VISTARIL) injection 25 mg 25 mg, Intramuscular, ONCE PRN, Nausea/V omiting, Starting on Tue12/14/21 at 0949, Until Tue12/14/21 at 2028, For 1 dose, If multiple medications are ordered for nausea or vomiting - administer in the foll owing priority based on medications orde red, effectiveness and availability: ondansetron (ZOFRAN) > prochlorperazine (COMPAZINE) > diphenhydrAMINE (BENADRYL) > hydrOXYzine HCl (VISTARIL)> ePHEDrine > scopolamine (TRANSDERM- SCOP)., PACU/Recovery labetalol (NORMODYNE) injection 5 mg 5 mg, Intravenous, Q10MIN PRN, Other, Hi gh Blood Pressure, MAX 5 doses, hold for HR <50, Starting on Tue12/14/21 at 0949, Until Tue12/14/21 at 2028, For 5 doses, Call Anesthesiologist before administra tion. Give as directed by Anesthesiologist., PACU/Recovery midazolam (VERSED) injection 0.5-1 mg 0.5-1 mg, Intravenous, [id number], Anxiety , Starting on Tue12/14/21 at 0949, Until Tue12/14/21 at 2028, Maximum cumulative dose is 2 mg. TO BE GIVEN IN PACU ONLY., PACU/Recovery midazolam (VERSED) injection 1-2 mg 1142 (Given - Provider: Kasandra Horn RN) 1-2 mg, Intravenous, [id number], Sedation, Anxiety, Procedure, Starting on Tue12/14/21 at 1038, Until Tue12/14/21 at 2028, As directed by anesthesiologist MAX Dose 2mg, Pre-op naloxone (NARCAN) injection 0.08 mg 0.08 mg, Intravenous, PRN, Other, For re spiratory rate less than 8/minute or patient difficult to arouse, Starting on Tue12/14/21 at 0949, Until Tue12/14/21 at 2028, May repeat every 3 minutes or until pa tient is responsive to physical stimulat ion and is able to take deep breaths. Maximum cumulative dose is 0.4 mg (1 mL). Continue to observe; if no response after administering total dose of 0.4 mg notify anesthesiologist STAT., PACU/Recovery naloxone (NARCAN) injection 0.4 mg 0.4 mg, Intravenous, ONCE PRN, Opioid Re versal, Starting on Tue12/14/21 at 0949, Until Tue12/14/21 at 2028, For 1 dose, For imminent respiratory arrest. Notify MD if naloxone is given., PACU/Recovery ondansetron (ZOFRAN) injection 4 mg 4 mg, Intravenous, Q4H PRN, Nausea, Vomi ting, Starting on Tue12/14/21 at 0949, Until Tue12/14/21 at 2028, If multiple medications are ordered for nausea or vomiting - administer in the following priority based on medications ordered, effectiven ess and availability: ondansetron (ZOFRAN) > prochlorperazine (COMPAZINE) > diphenhydrAMINE (BENADRYL) > hydrOXYzine HCl (VISTARIL)> ePHEDrine > scopolamine (TRANSDERM-SCOP)., PACU/Recovery prochlorperazine (COMPAZINE) injection 5 mg 5 mg, Intravenous, Q15MIN PRN, Nausea, V omiting, Starting on Tue12/14/21 at 0949, Until Tue12/14/21 at 2028, For 2 doses, 2nd dose may be given in 15-30 minutes if first dose not effective. Maximum of 2 d oses only. If multiple medications are o rdered for nausea or vomiting - administer in the following priority based on medications ordered, effectiveness and availability: ondansetron (ZOFRAN) > proch lorperazine (COMPAZINE) > diphenhydrAMIN E (BENADRYL) > hydrOXYzine HCl (VISTARIL)> ePHEDrine > scopolamine (TRANSDERM-SCOP)., PACU/Recovery documented in this encounter Care Teams Infectious Diseases Physician Relationship Specialty Start Date End Date Sonia Pérez PA-C PCP - General Physician Maintenance Team Member 01/10/17 [address] [facility] [address] [place] [id number] documented as of this encounter
--- OUTSIDE RECORDS SUMMARY | 2022-04-22 13:58 | XMS_ITS | Encounter Summary ---
:1965 Author Organization [facility] Address [address] [place] [address] Care Team Providers Name Role Phone Sonia Pérez PA-C Primary Care Provider Reason for Visit Reason Comments Post-Op Problem Encounter Details Date Type Department Care Team Description 12/17/2021 Nurse Triage Careline Unknown, Physician Post-Op Problem [address] [place], [place] [address] [place], [place] [phone] (Wo rk) Social History Tobacco Use Types Packs/Day Years Used Date Smoking Tobacco: Former Smokeless Tobacco: Never Comments: Quit smoking: Alcohol Use Standard Drinks/Week Comments Yes 0 (1 standard drink = 0.6 oz pure Alcoho lic Drinks/day: Amount:1-2 alcohol) drinks; Freq:- ; Sex Assigned at Date Recorded Not on file documented as of this encounter Nursing Notes Ani Marquez RN - 12/17/2021 8:55 PM CDT Verified patient identity: Yes name, and address Situation/Background (brief explanation of current symptoms/situation): the partial cast is putting pressure on the back of the upper arm Started today Pt is icing and elevating Reviewed with patient pertinent medical history (as it related to the call): Yes Revision open reduction internal fixation LEFT elbow fracture dislocation Reviewed with patient pertinent medications (as they relate to call): Yes reviewed Reviewed with patient pertinent allergies (as they relate to call): Yes reviewed Reason for Disposition [1] Increasing pain under cast AND [2] cast put on > 24 hours ago AND [3] not improved after elevation Protocols used: Cast Symptoms and [id number] Pt declines ED, she will call ortho clinic tomorrow Jaycee Pepper Y - 12/17/2021 7:20 PM CDT Verified patient identity using three identifiers: Yes Caller's relationship to patient: Self Do you get your primary care at a [facility] or [facility] clinic: No/Other [facility] Select Member: No Are you calling about a positive COVID result: No Symptoms Describe the reason for call/symptoms (include location and duration if applicable): Pt states that she had elbow surgery on 12/14 at [facility] and now the partial cast is pinching her arm. Pt states she has moderate pain. Plan:The current callback time to speak with a nurse is 2hrs. If your symptoms change or worsen, or if you have not received a call back in the stated timeframe, please call us back documented in this encounter Plan of Treatment Upcoming Encounters Date Type Specialty Care Team Description 06/15/2022 Appointment Orthopedics Vanna Ulloa MD [address] [place] [address] (Wo rk) documented as of this encounter Visit Diagnoses Not on filedocumented in this encounter Care Teams Residential Support Worker Relationship Specialty Start Date End Date Sonia Pérez PA-C PCP - General Physician Top Collar Baster 01/10/17 [address] [facility] [address] [place] [id number] documented as of this encounter
--- OUTSIDE RECORDS SUMMARY | 2022-04-22 13:58 | XMS_ITS | Encounter Summary ---
:1965 Author Organization [facility] Address [address] [place] [address] Care Team Providers Name Role Phone Sonia Pérez PA-C Primary Care Provider Reason for Visit Reason Comments Medication Problems Encounter Details Date Type Department Care Team Description 12/14/2021 Telephone [facility] Vanna Siddiqi MD Medication Problems [address] [facility] [address] [facility] [address] [place] [address] [place] [address] [phone] (Wo rk) Social History Tobacco Use Types Packs/Day Years Used Date Smoking Tobacco: Former Smokeless Tobacco: Never Comments: Quit smoking: Alcohol Use Standard Drinks/Week Comments Yes 0 (1 standard drink = 0.6 oz pure Alcoho lic Drinks/day: Amount:1-2 alcohol) drinks; Freq:- ; Sex Assigned at Date Recorded Not on file documented as of this encounter Nursing Notes Madeline Glez, DEBI - 12/14/2021 3:26 PM CDT Pt still in post op. Called post op charge will make sure needs at addressed. Greyson Blackburn HUC - 12/14/2021 9:36 AM CDT patient LVM stating the prescription sent to her pharmacy is the wrong one, can you please reach outto clarify? Thank you documented in this encounter Plan of Treatment Upcoming Encounters Date Type Specialty Care Team Description 06/15/2022 Appointment Orthopedics Vanna Ulloa MD [address] [facility] [place] [address] (Wo rk) documented as of this encounter Visit Diagnoses Not on filedocumented in this encounter Care Teams Warehouse Specialist Relationship Specialty Start Date End Date Sonia Pérez PA-C PCP - General Physician Security Investigator 01/10/17 [address] [facility] [address] [place] [phone] documented as of this encounter
--- OUTSIDE RECORDS SUMMARY | 2022-04-22 13:58 | XMS_ITS | Encounter Summary ---
:1965 [facility] Address [address] [place] [address] Care Team Providers Name Role Phone Sonia Pérez PA-C Primary Care Provider Reason for Visit Procedure/Equipment (Routine) - Incomplete Specialty Diagnoses / Procedures Referred By Contact Refer red To Contact Diagnoses Left elbow pain Vanna Ulloa MD Procedures XR Elbow Lt 2 Views [address] [facility] [address] [place] [address] Referral ID Status Reason Start Date Expiration Date Visits V isits Requested Authorized [id number] Incomplete 12/22/2021 03/23/2023 1 1 Encounter Details Date Type Department Care Team Description 12/22/2021 Ancillary Procedure [facility] Vanna Ulloa MD Left elbow pain [address] [place] [address] [phone] (Wo rk) Social History Tobacco Use Types [...] 06/15/2022 Appointment Orthopedics Vanna Ulloa MD [address] [facility] [place] [phone] (Wo rk) documented as of this encounter Procedures Procedure Name Priority Date/Time Associated Diagnosis Comme nts XR ELBOW LT 2 VIEWS Routine 12/22/2021 12:44 PM Left elbow niels n Results for this CDT procedure are i n the results section. documented in this encounter Results XR Elbow Lt 2 Views (12/22/2021 12:44 PM CDT) Anatomical Region Laterality Modality Upper Extremity, Elbow, Arm Digital Radi ography Specimen (Source) Anatomical Location Collection Method / Collectio n Time Received Time / Laterality Volume Narrative 01/07/2022 5:08 PM CDT Three views of the left elbow, compared to intraoperative fluoroscopic views demonstrates overall stable alignm ent of the elbow with concentric radiocapitellar joint on all three views . There is migration of the locking axis pin from the screw threads. Vanna Ulloa MD RAD GD documented in this encounter Visit Diagnoses Diagnosis Left elbow pain Pain in joint, upper arm documented in this encounter Care Teams Finishing Manager Relationship Specialty Start Date End Date Sonia Pérez PA-C PCP - General Physician Collection Teller 01/10/17 [address] [facility] [address] [place] [id number] documented as of this encounter
--- OUTSIDE RECORDS SUMMARY | 2022-04-22 13:58 | XMS_ITS | Encounter Summary ---
:1965 Author [facility] Address [address] [place] [address] Care Team Providers Name Role Phone Sonia Pérez PA-C Primary Care Provider Reason for Referral Procedure/Equipment (Routine) - Incomplete Specialty Diagnoses / Procedures Referred By Contact Refer red To Contact Diagnoses Closed fracture of distal end of left fibula with routine healing, unspecified fracture morphology, subsequent encounter Latanya Wilson MD Procedures XR Ankle Lt 3 Views [address] [facility] [place] [address] Referral ID Status Reason Start Date Expiration Date Visits V isits Requested Authorized [id number] Incomplete 12/22/2021 03/23/2023 1 1 Reason for Visit Reason Comments Follow-up Encounter Details Date Type Department Care Team Description 12/22/2021 Office Visit [facility] Latanya Wilson, Closed fracture of Urgent Care distal end of left [address] [facility] [address] [facility] fibaracelis with routine [place] [address] [place] healing, unspecified [phone] fracture morphology, (Wo rk) subsequent encounter (Primary [...] Pressure - - Pulse - - Temperature 35.9 ??C (96.7 ??F) 12/22/2021 11:58 AM CDT Respiratory Rate - - Oxygen Saturation - - Inhaled Oxygen Concentration - - Weight - - Height - - Body Mass Index - - documented in this encounter Patient Instructions Patient InstructionsLos Donato LPN - 12/22/2021 12:[address] Latanya Wilson MD Sports & Orthopaedic Medicine [facility] [place] [facility] Nurse Line: [phone] Please contact Orthopedic Urgent Care line for all requests and questions. Medication Requests: Prescriptions are not filled on Weekends or on Weekdays after 3:00PM For all medication refills: Request a refill using MyChart or contact your Pharmacy To schedule appointments: [phone] Paperwork Requests: FMLA or disability paperwork can be faxed to: [phone] Medical records: [phone] (option 4) [facility] Worker's Compensation Services E-mail Address: [email or web address] Diagnosis: Left Distal Fibular Fracture Follow up in THREE weeks with Dr. Wilson Weight bear as tolerated. Continue wearing boot as directed. documented in this encounter Progress Notes Latanya Wilsno MD - 12/22/2021 12:00 AM CDT NAME: MARCELO BECK CSN: [id number] CLINIC NOTE DATE OF SERVICE: 12/22/2021 : 1965 Marcelo Beck is here for followup of her left ankle. She was last seen by myself on 11/26/2021. She has been in a boot for her fibular fracture. Pain is 8/10 at times. Left ankle exam: Tenderness over the distal fibula. Has mild swelling. Left ankle x-rays, independently reviewed, show no change in the distal fibular fracture. Interval fracture healing noted. ASSESSMENT: Left distal fibula fracture, 6 weeks status post injury, with ongoing tenderness. PLAN: I recommended continuing with the boot, with weightbearing as tolerated. She will follow up in3 weeks with repeat left ankle x-rays to determine if further immobilization is necessary. LATANYA WILSON MD SAB/AQS /[id number] documented in this encounter Plan of Treatment Upcoming Encounters Date Type Specialty Care Team Description 06/15/2022 Appointment Orthopedics Vanna Ulloa MD [address] [place] [address] (Wo rk) documented as of this encounter Results XR Ankle Lt 3 Views (12/22/2021 12:06 PM CDT) Anatomical Region Laterality Modality Lower Extremity, Ankle, Foot & Ankle Dig ital Radiography Specimen (Source) Anatomical Collection Method Collection Time Re ceived Time Location / / Volume Laterality 12/22/2021 11:59 AM CDT Impressions 12/22/2021 12:09 PM CDT COMPARISON: ??11/26/2021 FINDINGS: ??Left ankle 3 views. Stable a lignment of a mildly displaced oblique fracture in the distal fibula extending to the level of the tibiotalar joint. Alignment unchanged. Symmetric appearance of the ankle mortise. Soft tissue fullness along the anterior aspect of the tibiotalar joint consistent with an underlying joint effusion. Prominent marginal osteophyte along the anterior aspect of the tib ia. Scattered dorsal osteophytes through out the midfoot. Prominent posterior and plantar calcaneal enthesophytes. Procedure Note Jorge Robles MD - 12/22/2021Formattin g of this note might be different from the original. IMPRESSION COMPARISON: 11/26/2021 FINDINGS: Left ankle 3 views. Stable ali gnment of a mildly displaced oblique fracture in the distal fibula extending to the level of the tibiotalar joint. Alignment unchanged. Symmetric appearance of the ankle mortise. Soft tissue fullness along the anterior aspect of the tibiotalar joint consistent with an underlying joint effusion. Prominent marginal osteophyte along the anterior aspect of the tibia. Scattered dorsal osteophytes throughout the midfoot. Prom inent posterior and plantar calcaneal enthesophytes. Latanya Wilson MD RAD GD documented in this encounter Visit Diagnoses Diagnosis Closed fracture of distal end of left fi bula with routine healing, unspecified fracture morphology, subsequent encounte r - Primary Closed fracture of distal end of left fi bula with routine healing, unspecified fracture morphology, subsequent encounte r documented in this encounter Care Teams Textile Conservator Relationship Specialty Start Date End Date Sonia Pérez PA-C PCP - General Physician Glue Bone Drier 01/10/[address] [place] [phone] documented as of this encounter
--- OUTSIDE RECORDS SUMMARY | 2022-04-22 13:58 | XMS_ITS | Encounter Summary ---
:1965 Author Organization [facility] Address [address] [place] [address] Care Team Providers Name Role Phone Sonia Pérez PA-C Primary Care Provider Reason for Referral Procedure/Equipment (Routine) - Incomplete Specialty Diagnoses / Procedures Referred By Contact Refer red To Contact Diagnoses Left elbow pain Dislocation of left elbow, subsequent encounter Vanna Ulloa MD Procedures Case Request OR - Orthopedic Surgery: revision FIXATION ELBOW dislocation [address] [place] [address] Referral ID Status Reason Start Date Expiration Date Visits V isits Requested Authorized [id number] Incomplete 12/22/2021 03/23/2023 1 1 Procedure/Equipment (Routine) - Incomplete Specialty Diagnoses / Procedures Referred By Contact Refer red To Contact Diagnoses Left elbow pain Vanna Ulloa MD Procedures XR Elbow Lt 2 Views [address] [place] [address] Referral ID Status Reason Start Date Expiration Date Visits V isits Requested Authorized [id number] Incomplete 12/22/2021 03/23/2023 1 1 Reason for Visit Reason Comments Post-Op Check Left elbow Encounter Details Date Type Department Care Team Description 12/22/2021 Office Visit Vanna Huffman MD Left elbow pain (Primary Dx); CENTER [address] [facility] Dislocation of left elbow, subsequent en counter [address] [place], [place] [id number] (Wo rk) Social History Tobacco Use Types Packs/Day Years Used Date Smoking Tobacco: Never Smokeless Tobacco: Never Comments: Quit smoking: Alcohol Use Standard Drinks/Week Comments Yes 0 (1 standard drink = 0.6 oz pure Alcoho lic Drinks/day: Amount:1-2 alcohol) drinks; Freq:- ; Sex Assigned at Date Recorded Not on file documented as of this encounter Patient Instructions Patient InstructionsAnahi Ellison, ATC - 12/22/2021 1:00 PM CDT Thank you for Choosing [facility] for your health care visit today. Dr. Yesenia Ulloa MD Hand & Upper Extremity Surgeon Medication Requests: Prescriptions are not filled on weekends or on weekdays after 3:00 PM. For all medication refills: Request a refill using [employer] or contact your pharmacy. What is Know Your Cost? Know Your Cost is a service for patients and patient/members to call and receive personalized cost information and estimates across our care group. The phone number is (COST) Tuesday - Tuesday 8 AM to 5 PM Advanced Imaging Scheduling: To schedule an MRI, Ultrasound, or Image guided injection at [facility] please call [phone]. To schedule an MRI or CT at a [facility] location please call [phone]. [employer] [address] [place] [address] (Phone) Email: [email or web address] Release of Information: Radiology/Imaging [address] [place] [address] (Phone) Health Information Management [address] [place] [address] (Phone) [employer] documented in this encounter Progress Notes Evans Hopson MD - 12/22/2021 1:00 PM CDT Orthopedic surgery clinic progress note Date of visit 12/22/2021 Date of most recent surgery 12/14/2021 Surgery: Revision left lateral ulnar collateral ligament repair with application of internal fixator Subjective: 56-year-old female who presents to clinic 1 week after the above stated surgery. Subjectively, she is doing well at this time, with her main complaint being some dorsal neuropathic pain about the forearm. No incisional problems. She did present to an emergency department, where her splint was determined to be too tight, her symptoms seem to improve after loosening of the splint at the emergency department. No shortness of breath, chest pain, incisional problems. Objective: Focused examination of the left elbow demonstrates a healing posterior midline incision with nylon sutures in place. Minimal pain with short arc range of motion approximately 15?? from 90?? to 105??. Sensory intact to light touch in median, ulnar, radial nerve distribution. CMS intact distally. Imaging: Three views of the left elbow available for my independent review, compared to intraoperative fluoroscopic views demonstrates overall stable alignment of the elbow with concentric radiocapitellar joint on all three views. There is migration of the locking axis pin from the screw threads. Assessment and plan: 56-year-old female status post the above-stated surgery, with interval screw migration of the locking axis pin associated with the internal fixator. The risks and benefits of surgical and nonsurgical treatment were discussed at length the patient. Because this locking pin placed acrucial role for the internal fixator, it was recommended to the patient that he undergo a repeat surgery for interrogation of the locking axis pin. The elbow is currently reduced, and she will unlikely need to undergo further reconstructive procedure at the elbow. However in order to initiate early active range of motion, our clinic would recommend revision of at least the locking axis pin to ensure the internal fixator is functioning properly. This plan was discussed with the patient, and her , at length. After a thorough discussion ofthe risks and benefits the patient opted to undergo repeat surgery to address this locking axis pin. Patient was placed in a posterior slab splint, and a sling. She will remain nonweightbearing until her upcoming surgery. Dr. Ulloa saw and examined the patient, and agrees with the assessment and plan. Evans Hopson MD Orthopaedic Surgery, PGY-4 documented in this encounter Plan of Treatment Upcoming Encounters Date Type Specialty Care Team Description 06/15/2022 Appointment Orthopedics Vanna Ulloa MD [address] [place] [address] (Wo rk) documented as of this encounter Results (ABNORMAL) 2019 Novel Coronavirus (COVID-19) (12/22/2021 3:29 PM CDT) [facility] Method Time Signature COVID-19 Detected Not 12/23/2021 [employer] Interpretation (A) Detected 2:20 AM CENTRAL LAB CDT Source Nares, left 12/23/2021 [facility] and right 2:20 AM CENTRAL LAB CDT Specimen Anatomical Collection Method Collection Time Receive d Time (Source) Location / / Volume Laterality Swab (Source Non-blood 12/22/2021 3:29 PM 3:29 Required) Collection / CDT PM CDT Unknown Narrative [facility] - 12/23/2021 2:20 AM CDT Test performed by Supervisor [employer] Mediated Amplification. TMA has been shown to be equivalent to commercial real-time PCR t ests. This test has been authorized by the FDA under Emergency Use Authorization (E UA) for use by authorized laboratories. Vanna Ulloa MD LAB_1 Performing Organization Address City/State/ZIP Code Phon e Number [facility] [address] [address] XR Elbow Lt 2 Views (12/22/2021 12:44 [...] encounter Visit Diagnoses Diagnosis Left elbow pain - Primary Pain in joint, upper arm Dislocation of left elbow, subsequent en counter Left elbow pain Pain in joint, upper arm documented in this encounter Care Teams Head Nurse Relationship Specialty Start Date End Date Sonia Pérez PA-C PCP - General Physician Entry Level Project Engineer 01/10/[address] [address] documented as of this encounter
--- OUTSIDE RECORDS SUMMARY | 2022-04-22 13:58 | XMS_ITS | Encounter Summary ---
:1965 Author Organization [facility] Address [address] [place] [address] Care Team Providers Name Role Phone Sonia Pérez PA-C Primary Care Provider Encounter Details Date Type Department Care Team Description 12/14/2021 Anesthesia Event [facility] Suri Urrutia, [address] [facility] Elvin villasenor MD [place], [place] [address] [address] [facility] [phone] [place] [address] (Wo rk) Anesthesia Record Procedure Summary Procedure Name Responsible Anesthesia Start Anesthesia Stop Anesthesiologist Time Time Revision open Suri Urrutia MD 12/14/21 1255 12/14/21 1645 reduction internal fixation LEFT elbow fracture dislocation (Left: Elbow) Events Date Time Event Comment 12/14/2021 1255 An Start 1255 An Start Data 1255 An Oxygen Mask Spontaneous res pirations with adequate air exchange. 1304 MD/DO Present 1314 MD/DO Present 1314 An LMA 1320 MD/DO Present 1325 An Tourn Inflated 1353 MD/DO Present 1447 MD/DO Present 1455 an kayy now 90 minutes on Q time; surgeon aware; time limit set to 120 minutes 1525 Quick Note 120 mins on TT, another 10 mins added per surgeon's request. 1532 An Tourn Deflated TTT 127 mins 1540 MD/DO Present 1618 MD/DO Present 1625 An LMA Removed Spontaneous resp irations with adequate air exchange. LMA re moved without complications. Transported with oxygen to recovery. 1626 An Oxygen Mask Spontaneous res pirations with adequate air exchange. 1636 an stop data 1645 Care Handoff Note I discussed wi th [...] understanding of report Electr onically signed by Andressa Gastelum APRN, EILEEN NA 1645 An Stop Care transferred . Name Total lidocaine 2% PF injection aka (XYLOCAINE) 60 mg propofol 10 mg/mL for procedural sedation (aka diPRIva n) 200 mg propofol 10 mg/mL (aka diPRIvan) 2,275.33 mg ondansetron injection (aka ZOFRAN) 4 mg ropivacaine (NAROPIN) 0.5% (5 mg/mL) injection 35 mL dexamethasone PF (DECADRON) 10 mg/mL injection 4 mg ceFAZolin (ANCEF) 2 g in sodium chloride 0.9 % 50 mL I VPB 2 g phenylephrine 100 mcg/mL in NaCl 0.9% syringe (NEIL-SYN EPHRINE) 600 mcg phenylephrine (VAZCULEP) 50,000 mcg in sodium chloride 0.9 % 500 mL (100 2,490.6 mcg mcg/mL) infusion dexamethasone (DECADRON) injection 8 mg 10 mg lactated ringers infusion 1,700 mL Agents Name O2 N2O Air Identified Agent Name Blood No blood administrations on file. Lines, Drains, and Airways Type Details Placement Removal Peripheral IV Placement Date: 12/14/21 1030 by [id number] b y 12/14/21; Placement Kimberly Quijano Jan e H RN Time: 1030; Pre-existing: No; Inserted by?: RN; Size (Gauge): 22 G; Orientation: Anterior, Right; Site Prep: Alcohol; Local Anesthetic: None; Insertion attempts: 1; Blood draw with insertion?: no; Patient Tolerance: Tolerated well; Removal Date: 12/14/21; Removal Time: 180; Removal Reason: Patient discharged; Catheter Tip: Intact LMA Placement Date: 12/14/21 1314 by 12/14/21 1625 b y 12/14/21; Placement Yaya Aponte, Zach Gastelum, Time: 1314; Placed By: SILVIANO, JULIAN SHORE, NICOLE Valentine CRNA; Induction Type: Pre-O2, IV; Airway masking: Easy; Size (mm): 4; Placement details: Prepped and lubricated, Placed with ease, Cuff inflated with minimum volume to create seal; Difficulty: Atraumatic; Placement verification: Positive EtCO2; Teeth and lips: Unchanged; Airway emergence: Following commands, Opening eyes, Spontaneous respirations, Adequate air exchange; Removal Date: 12/14/21; Removal Time: 162; Transferred with Oxygen: Yes Incision/Surgical 12/14/21; 1324; #1; 12/14/21 1324 by 12/28/21 1829 by [facility], Site No; Elbow; Left, SammieanoNita M, Discontinu e Posterior; 12/28/21; RN 1829 documented in this encounter Social History Tobacco Use Types Packs/Day Years Used Date Smoking Tobacco: Former Smokeless Tobacco: Never Comments: Quit smoking: Alcohol Use Standard Drinks/Week Comments Yes 0 (1 standard drink = 0.6 oz pure Alcoho lic Drinks/day: Amount:1-2 alcohol) drinks; Freq:2-4/Tue ; Sex Assigned at Date Recorded Not on file documented as of this encounter Miscellaneous Notes Anesthesia Postprocedure Evaluation - Suri Urrutia MD - 12/14/2021 5:40 PM CDT [facility] An[facility] Post-op Note Patient: Liz Phelps Post-Op Diagnosis: Elbow pain, left Procedure Performed: Procedure(s): Left - Revision open reduction internal fixation LEFT elbow fracture dislocation - Wound Class: 2 CLEAN-CONTAMINATED Anesthesia Type: General Post-op vital signs: Vitals Value Taken Time BP 129/80 12/14/21 1730 Temp 36.5 ??C (97.7 ??F) 12/14/21 1730 Pulse 95 12/14/21 1730 Resp 16 12/14/21 1730 SpO2 94 % 12/14/21 1730 Pain Score: Presence Of Pain: denies Preferred Pain Scale: number (Numeric Rating Pain Scale) Pain Rating (0-10): Rest: 0 Pain Rating (0-10): Activity: other (see comments) (pt stated it can get to a12) Post-op assessment: No anesthesia complication. Patient location: Phase 2 Airway Status: Patent Cardiovascular function: Satisfactory Hydration status: Satisfactory PONV: None Level of Consciousness: Awake Full recovery from long-acting regional anesthetic has not yet occurred but is expected within 48 hours Postop Assessment: Patient tolerated procedure well. Other comments: Feels well with block. Satting 94% on RA. Tolerating PO. Satisfied with anesthesia. All questions answered. Electronically signed by: Suri Urrutia MD 12/14/2021 5:40 PM Anesthesia Procedure Notes - Suri Urrutia MD - 12/14/2021 12:22 PM CDT Associated Order(s): Peripheral Block Peripheral Block Performed by: Suri Urrutia MD Authorized by: Suri Urrutia MD Patient Location: Preop Start Time: 12/14/2021 11:42 AM End Time: 12/14/2021 11:47 AM Performed by: Anesthesiologist Body area of [...] Sterile gloves and Mask Monitoring: Blood pressure, cardiac cath lab radiology technologist and continuous pulse oximetry Patient Position: Supine Procedures: ultrasound guided Needle Type: Insulated Needle Length: 2 in Needle Gauge: 21 G Pain on [...] needle and nerve visualized Catheter placed?: No Complication: None Procedure Comments: All neurovascular structures identified and normal appearing. Patient sedated, but conversant throughout. Aspiration negative q5cc. No pain/parasthesias with injection. No evidence of intravascular/intraneural injection. Tolerated well. Performed by Suri Urrutia MD Ropivacaine administered: Ropivacaine 0.5% (5 mg/mL) 5 MG/ML - Regional Nerve Block 35 mL - 12/14/2021 11:47:00 AM Dexamethasone administered: Dexamethasone PF 10 MG/ML - Regional Nerve Block 4 mg - 12/14/2021 11:47:00 AM Anesthesia Preprocedure Evaluation - Suri Urrutia MD - 12/14/2021 10:20 AM CDT [facility] An[facility] Pre-op Evaluation Procedure: Revision open reduction internal fixation LEFT elbow fracture dislocation, Left HPI: 56 y.o. old female with Elbow pain, left Last Fluid Intake Time: 2029 Last Fluid Intake Date: 12/13/21 Last Food Intake Date: 12/13/21 Last Food Intake Time: 2299 Allergies Allergen Reactions ??? Exenatide Other, see comments PN: local site reaction of skin breakdown, severe itching, and pain. ??? Atorvastatin Other reaction(s): Myalgia ??? Dilaudid [Hydromorphone] Other, see comments Nausea/Vomiting. Pt stated was admitted to hospital after taking Dilaudid due to uncontrollable N/V ??? Dulaglutide Gastrointestinal and Nausea Past Medical History: Diagnosis Date ??? Anxiety (HRC) ??? Asthma (HRC) ??? Cataract 06/09/2020 both eyes ??? [...] regular cycle ??? Dislocation of left elbow Past Surgical History: Procedure Laterality Date ??? LAP CHOLECYSTECTOMY 10/14/2016 ??? TUBAL LIGATION ??? WISDOM TEETH EXTRACTION Outpatient Medications as of 12/14/2021 Medication Sig ??? ACCU-CHEK FARTUN PLUS test [...] strip as instructed 3 times daily. ??? Osilbvw-Algkjlwhh-Ztie 333-133-5 MG Take 1 Tablet by mouth. [...] and 800 mg in the evening. ??? ibuprofen (MOTRIN) 200 MG tablet Take [...] tablet Take 12.5 mg by mouth. ??? metFORMIN (GLUCOPHAGE XR) 500 MG 24 hour release tablet Take 3 tablets by mouth daily (every 24 hours). ??? metoclopramide (REGLAN) 10 MG tablet Take 10 mg by mouth. ??? Multiple Vitamins-Minerals (MULTIVITAMIN OR) Take 1 tablet by mouth daily (every 24 hours). ??? omega-3 fatty acids (MAXEPA,FISHOIL) 1000 MG capsule daily (every 24 hours). ??? fstyz-2-ikhw ethyl esters (LOVAZA) 1 g capsule Take [...] SOPN INJECT 0.75MG SUBCUTANEOUSLY ONCE A WEEK Facility-Administered Medications as of 12/14/2021 Medication Dose Route Frequency ??? ceFAZolin (ANCEF) 2 g in sodium chloride 0.9 % 50 mL IVPB 2 g Intravenous Once ??? celecoxib (CeleBREX) capsule 400 mg 400 mg Oral Once ??? dexamethasone (DECADRON) injection 8 mg 8 mg Intravenous Once ??? dextrose 5 % infusion Intravenous ONCE PRN ??? diphenhydrAMINE (BENADRYL) injection 25 mg 25 mg Intravenous ONCE PRN ??? ePHEDrine injection 25 mg 25 mg Intramuscular ONCE PRN ??? fentaNYL (SUBLIMAZE) injection 25-50 mcg 25-50 mcg Intravenous Q5MIN PRN ??? hydrALAZINE (APRESOLINE) injection 5 mg 5 mg Intravenous Q10MIN PRN ??? hydrOXYzine HCl (VISTARIL) injection 25 mg 25 mg Intramuscular ONCE PRN ??? labetalol (NORMODYNE) injection 5 mg 5 mg Intravenous Q10MIN PRN ??? midazolam (VERSED) injection 0.5-1 mg 0.5-1 mg Intravenous Q5MIN PRN ??? naloxone (NARCAN) injection 0.08 mg 0.08 mg Intravenous PRN ??? naloxone (NARCAN) injection 0.4 mg 0.4 mg Intravenous ONCE PRN ??? ondansetron (ZOFRAN) injection 4 mg 4 mg Intravenous Q4H PRN ??? prochlorperazine (COMPAZINE) injection 5 mg 5 mg Intravenous Q15MIN PRN Labs: Lab Results Component Value Date/Time SODIUM 141 12/01/2015 11:16 AM K 4.4 12/01/2015 11:16 AM CHLORIDE 106 12/01/2015 11:16 AM CREATININE 0.90 12/01/2015 11:16 AM GLUCOSE 253 (H) 05/07/2013 11:04 AM Lab Results Component Value Date/Time WBC 7.7 12/14/2005 10:06 AM HGB 15.1 12/14/2005 10:06 AM HCT 43.9 12/14/2005 10:06 AM PLTS 276 12/14/2005 10:06 AM No results found for: INR Blood Bank: N/O BB ANTIBODY SCREEN (no units) Date Value 01/14/1998 NEG EKG: No results found for this or any previous visit. Physical Exam: BP 111/81 Pulse 90 Resp 20 Ht 5' 6 Wt 111.1 kg (245 lb) SpO2 92% BMI 39.54 kg/m?? Assessment/Plan: Review of Systems NPO Status: Acceptable. Patient has GERD. GERD controlled with medication. Patient is not a current smoker. Patient is a former smoker. The patient reports alcohol use. Patient denies any recent URI. History of PONV: No. History of motion sickness: No. Patient denies any personal or family history of anesthesia complications (PONV). Exam Mental Status: Alert and oriented. Mallampati score: I (One). Mouth opening: Normal Thyromental Distance: > 3 finger breadths and Normal Neck Extension: Full Neck Circumference > 40 cm?: No Previous airway assessment: Previously EASY intubation., (reina 2, gr 1). Current airway assessment:Normal Cardiac Exam: Regular rate and rhythm. Respiratory Exam: Breath sounds clear to auscultation Assessment ASA Status: 3 . Plan Anesthesia type: Peripheral Nerve Block Induction: Intravenous and Propofol Maintenance: TIVA Postoperative pain management (PONV): Plan for postoperative opioid use and Peripheral Nerve Block for Postop Analgesia at Surgeon's request PONV Risk Score Adult: 3 PONV Prophylaxis (planned): Ondansetron and Decadron Anesthetic plan, risks, benefits and alternatives discussed with: Patient or Voltage Tester agree tothe anesthesia treatment plan and Patient. 56 y.o. female with DM2 (previously on insulin, states no insulin since prior surgery), HTN, chart history of FRED (patient states doesn't need cpap), well controlled GERD here for revision ORIF elbow. Discussed risks/benefits of supraclav pnb with sedation for case and for pop along with GA backup. Ofnote, baseline sats 95% on RA. Has some baseline numbness around her prior incision. No motor deficits. Patient agreeable. All questions answered. The patient and/or their employee's representative were notified about the potential risks of damage to the lips, teeth, dental devices, mouth and airway. H&P Reviewed and Patient examined, no change observed IV access Antibiotics per surgery Electronically signed by: Suri Urrutia MD 12/14/2021 10:20 AM documented in this encounter Plan of Treatment Upcoming Encounters Date Type Specialty Care Team Description 06/15/2022 Appointment Orthopedics Vanna Ulloa MD [address] [place] [address] (Wo rk) documented as of this encounter Procedures Procedure Name Priority Date/Time Associated Diagnosis Comme nts PERIPHERAL BLOCK Routine 12/14/2021 12:22 PM Resu lts for this CDT procedure are i n the results section. documented in this encounter Results PERIPHERAL BLOCK (12/14/2021 12:22 PM CDT) Narrative EXTERNAL RESULTS - 12/14/2021 12:22 PM C DT Suri Urrtuia MD ? 12/14/2021 ??1:47 PM Peripheral Block Performed by: Suri Urrutia MD Authorized by: Suri Urrutia MD Patient Location: ??Preop Start Time: ??12/14/2021 11:42 AM End Time: ??12/14/2021 11:47 AM Performed by: ??Anesthesiologist Body area of [...] nitor and continuous pulse oximetry Patient Position: ??Supine Procedures: ultrasound guided ?? Needle Type: ??Insulated Needle Length: ??2 in Needle Gauge: ??21 G Pain on [...] nerve visualized ?? Catheter placed?: No ?? Complication: ??None Procedure Comments: ??All neurovascular structures identified and normal appearing. Patient sedated, but conversa nt throughout. Aspiration negative q5cc. No pain/parasthesias with injectio n. No evidence of intravascular/intraneural injection. Tito erated well. Performed by Suri Urrutia MD ?? Ropivacaine administered: ??Ropivacaine 0.5% (5 mg/mL) 5 MG/ML - Regional Nerve Block 35 mL - 12/14/2021 11:47:00 AM Dexamethasone administered: ??Dexamethas one PF 10 MG/ML - Regional Nerve Block 4 mg - 12/14/2021 11:47:00 AM Suri Urrutia MD ANESTHESIA/AR Performing Organization Address City/State/ZIP Code Phon e Number EXTERNAL RESULTS documented in this encounter Visit Diagnoses Not on filedocumented in this encounter Administered Medications Inactive Administered Medications - up to 3 most recent administrations Medication Order MAR Action Action Date Dose Rate Site ceFAZolin (ANCEF) 2 g in sodium Started 12/14/2021 12:59 PM CDT 2 g chloride 0.9 % 50 mL IVPB 2 g, Intravenous, Administer over 30 Minutes, ONCE, On Tue12/14/21 at 1015, For 1 dose, Infuse within 60 minutes prior to incision Allergy to penicillin; consult day of surgery, check reaction history, assess previous surgical Allergy to penicillin; consult day of surgery, [...] after initial dose until incision closed., Pre-op dexamethasone (DECADRON) injection 8 mg Given 12/14/2021 3:33 PM CDT 10 mg 8 mg, Intravenous, ONCE, On Tue12/14/21 at 1015, For 1 dose, To be given by LUMBER MARKER in OR prior to induction. DO NOT give if patient is diabetic., Pre-op dexamethasone PF (DECADRON) injection Given 12/14/2021 11:47 AM CDT 4 mg Regional Nerve Block, Starting on Tue12/14/21 at 1147, Until Tue12/14/21 at 1147 lactated ringers infusion Started 12/14/2021 2:16 PM CDT Intravenous, at 30 mL/hr, CONTINUOUS, Starting on Tue12/14/21 at 1100, Pre-op Restarted 12/14/2021 12:55 PM CDT Started 12/14/2021 10:35 AM CDT 30 mL/hr lidocaine PF (XYLOCAINE) 2 % injection Given 12/14/2021 12:58 PM CDT 60 mg Intravenous, Starting on Tue12/14/21 at 1258, Until Tue12/14/21 at 1645 ondansetron (ZOFRAN) injection Given 12/14/2021 3:12 PM CDT 4 mg Intravenous, Starting on Tue12/14/21 at 1512, Until Tue12/14/21 at 1645 phenylephrine (VAZCULEP) Rate/Dose 12/14/2021 2:57 0.2 mcg/kg/min 7. 116 50,000 mcg in sodium Change PM CDT mL/hr chloride 0.9 % 500 mL (100 mcg/mL) infusion Intravenous, Starting on Tue12/14/21 at 1400 Rate/Dose Change 12/14/2021 2:36 PM CDT 0.4 mcg/kg/min 14.232 mL/hr Rate/Dose Change 12/14/2021 2:02 PM CDT 0.6 mcg/kg/min 21.348 mL/hr phenylephrine-NaCl 0.9% (NEIL-SYNEPHRINE) Given 12/14/2021 2:02 P M CDT 100 mcg injection Intravenous, Starting on Tue12/14/21 at 1331, Until Tue12/14/21 at 1645 Given 12/14/2021 1:52 PM CDT 100 mcg Given 12/14/2021 1:49 PM CDT 100 mcg propofol (DIPRIVAN) 10 mg/mL Rate/Dose 12/14/2021 4:07 50 mcg/kg/min 33.33 injection Change PM CDT mL/hr Intravenous, Starting on Tue12/14/21 at 1259, Until Tue12/14/21 at 1645 Rate/Dose Change 12/14/2021 3:45 PM CDT 75 mcg/kg/min 49.995 mL/hr Rate/Dose Change 12/14/2021 3:11 PM CDT 100 mcg/kg/min 66.66 mL/hr propofol (DIPRIVAN) 10 mg/mL injection Given 12/14/2021 1:14 PM CDT 200 mg Intravenous, Starting on Tue12/14/21 at 1314, Until Tue12/14/21 at 1645 ropivacaine 0.5% (5 mg/mL) (NAROPIN) 5 MG/ML Given 05/2021 11:47 AM CDT 35 mL injection Regional Nerve Block, Starting on Tue12/14/21 at 1147, Until Tue12/14/21 at 1147 documented in this encounter Care Teams Zoo Director Relationship Specialty Start Date End Date Sonia Pérez PA-C PCP - General Physician Solid Propellant Processor 01/10/17 1601 [facility] [address] [place] [address] documented as of this encounter
--- OUTSIDE RECORDS SUMMARY | 2022-04-22 13:58 | XMS_ITS | Encounter Summary ---
:1965 Author Organization [facility] Address [address] [place] [address] Care Team Providers Name Role Phone Sonia Pérez PA-C Primary Care Provider Reason for Visit Reason Comments Prior Authorization For Medication Encounter Details Date Type Department Care Team Description 12/15/2021 Telephone [facility] Vanna Kruse MD Prior Authorization For CENTER [address] [place] [address] Medication [address] [place], [place] [id number] [phone] (Wo rk) Social History Tobacco Use Types Packs/Day Years Used Date Smoking Tobacco: Former Smokeless Tobacco: Never Comments: Quit smoking: Alcohol Use Standard Drinks/Week Comments Yes 0 (1 standard drink = 0.6 oz pure Alcoho lic Drinks/day: Amount:1-2 alcohol) drinks; Freq:-4 ; Sex Assigned at Date Recorded Not on file documented as of this encounter Nursing Notes Asya Montemayor RN - 12/18/2021 3:28 PM CDT Patient has upcoming appointment 12/22/2021 1:00 PM Vanna Ulloa would like her scheduled with hand therapy after this appointment. Sending to to help schedule patient Asya Montemayor RN - 12/15/2021 2:16 PM CDT OPEN REDUCTION INTERNAL FIXATION ELBOW FRACTURE Called patient regarding PA information. 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 She states she was told she has a follow up with Dr. Ulloa on 12/22/21. She was told she would see handtherapy after that appointment but she has no HT appointment scheduled. Patient is wondering if she needs to schedule? Sending to Dr. Ulloa/care team to advise Asya Montemayor RN - 12/15/2021 10:55 AM CDT Pharmacist calling back reporting the patient is not able to pay stacy, we will have to call insurance. [phone] [place] [id number] Called number above and did PA over the phone. Answered clinical questions. PA has been approved. Updated pharmacist. Asya Montemayor RN - 12/15/2021 10:24 AM CDT Images from the original note were not included. PA for oxycodone done through [facility]: [id number] - Rx #: [id number]. Looks like insurance won't cover after a certain amount of narcotics in 60 days. Patient has exceeded that limit. Spoke to pharmacist and she will have patient pay stacy. LVM for patient letting her know medication is being filledand she can pick it up and pay stacy. documented in this encounter Plan of Treatment Upcoming Encounters Date Type Specialty Care Team Description 06/15/2022 Appointment Orthopedics Vanna Ulloa MD [address] [facility] [place] [address] (Wo rk) documented as of this encounter Visit Diagnoses Not on filedocumented in this encounter Care Teams Certified Hand Therapist Relationship Specialty Start Date End Date Sonia Pérez PA-C PCP - General Physician Chefs 01/10/17 [address] [facility] [address] [place] [address] documented as of this encounter
--- OUTSIDE RECORDS SUMMARY | 2022-04-22 13:58 | XMS_ITS | Encounter Summary ---
:1965 Author Organization [facility] Address [address] [place] [address] Care Team Providers Name Role Phone Sonia Pérez PA-C Primary Care Provider Reason for Visit Procedure/Equipment (Routine) - Incomplete Specialty Diagnoses / Procedures Referred By Contact Refer red To Contact Diagnoses Closed fracture of distal end of left fibula with routine healing, unspecified fracture morphology, subsequent encounter Cain Albrecht MD Procedures XR Ankle Lt 3 Views [address] [facility] [address] [place] [address] Referral ID Status Reason Start Date Expiration Date Visits V isits Requested Authorized [id number] Incomplete 12/22/2021 03/23/2023 1 1 Encounter Details Date Type Department Care Team Description 12/22/2021 Ancillary [facility] Radiology Cain Albrecht, Closed fracture of Procedure [address] distal end of left Drive [address] [facility] [address] [place] with routine [place], [place] healing, [id number] unspecified [phone] fracture (Work) morphology, subsequen t encounter Social [...] 06/15/2022 Appointment Orthopedics Vanna Ulloa MD [address] [place] [address] (Wo rk) documented as of this encounter Procedures Procedure Name Priority Date/Time Associated Diagnosis Comme nts XR ANKLE LT 3 VIEWS Routine 12/22/2021 12:06 PM Closed fractur e of Results for [...] Prom inent posterior and plantar calcaneal enthesophytes. Cain Albrecht MD RAD GD documented in this encounter Visit Diagnoses Diagnosis Closed fracture of distal end of left fi bula with routine healing, unspecified fracture morphology, subsequent encounte r documented in this encounter Care Teams Equipment Validation Engineer Relationship Specialty Start Date End Date Sonia Pérez PA-C PCP - General Physician Waxing Machine Operator 01/10/17 [address] [facility] [address] [place] [address] documented as of this encounter
--- OUTSIDE RECORDS SUMMARY | 2022-04-22 13:58 | XMS_ITS | Encounter Summary ---
:1965 Author Organization [employer] Address [address] [place] [address] Care Team Providers Name Role Phone Sonia Pérez PA-C Primary Care Provider Reason for Referral (Routine) - Incomplete Specialty Diagnoses / Procedures Referred By Contact Refer red To Contact Procedures Gwyn Padilla MD Anesthesia Guided Block [address] [address] [place] [address] Referral ID Status Reason Start Date Expiration Date Visits V isits Requested Authorized [id number] Incomplete 12/23/2021 03/24/2023 1 1 Reason for Visit Auth/Cert (Routine) Specialty Diagnoses / Procedures Referred By Contact Refer red To Contact Diagnoses Left elbow pain Dislocation of left elbow, subsequent encounter Procedures OPEN TX ACUTE/CHRONIC ELBOW DISLOC revision FIXATION ELBOW dislocation Referral ID Status Reason Start Date Expiration Date Visits Requ ested Visits Authorized [id number] 1 1 Encounter Details Date Type Department Care Team Description 12/23/2021 [facility] Vanna Ulloa, Left elbow pain; Encounter [facility] Dislocation of left elbow, subsequent en counter [address] [facility] [address] [facility] [place], [place] [address] [place], [place] [phone] Social History Tobacco Use Types Packs/Day Years [...] Pulse 83 12/23/2021 4:30 PM CDT Temperature 36.7 ??C (98.1 ??F) 12/23/2021 3:45 PM CDT Respiratory Rate 18 12/23/2021 4:30 PM CDT Oxygen Saturation 92% 12/23/2021 4:30 PM CDT Inhaled Oxygen Concentration - - Weight 111.1 kg (245 lb) 12/23/2021 10:10 AM CDT Height 167.6 cm (5' 6) 12/23/2021 10:10 AM CDT Body Mass Index 39.54 12/23/2021 10:10 AM CDT documented in this encounter Medications at Time of Discharge Medication Sig Dispensed Refills Start Date End Date ACCU-CHEK FARTUN PLUS Use to test three 300 Strip 3 08/04/19 17 test strip times daily before meals. Code E11.9 acetaminophen (TYLENOL) Take 1 Tablet (500 mg) 100 Tablet 11 12/14/2021 500 MG tablet by mouth every 4 hours as needed for Pain (Mild Pain). Maximum acetaminophen dose is 4000 mg in 24 hours ALBUterol sulfate HFA Inhale 1-2 Puffs. 0 019 108 (90 Base) MCG/ACT inhaler aspirin EC 81 MG enteric Take 1 tablet by mouth 100 tablet 13 05/07/2013 coated daily (every 24 tabletIndications: hours). Chronic rhinitis bisacodyl (DULCOLAX) 5 Take 1 Tablet (5 mg) 30 Tablet 0 MG enteric coated tablet by mouth daily as needed for Constipation (pain medication can cause constipation). blood glucose test Use 1 strip as 100 strip 6 12/02/2014 stripIndications: instructed 3 times Diabetes type 2, daily. uncontrolled Pbwljng-Uewgvvnpb-Dtcy Take 1 Tablet by 0 10/03/2 017 333-133-5 MG mouth. Coenzyme Q10 100 MG Take 100 mg by mouth. 0 12/01 cyclobenzaprine Take 1 tablet by mouth 30 tablet 0 11/24/19 16 (FLEXERIL) 5 MG 3 times daily as tabletIndications: Rib needed for Muscle contusion, right, spasms. initial encounter desvenlafaxine (PRISTIQ) Take 100 mg by mouth. 0 10/05/2016 50 MG 24 hour release tablet dulaglutide (TRULICITY) Inject 1 Pen 10 Pen 0 02/03/2016 0.75 MG/0.5ML injection subcutaneously once a penIndications: Type 2 week. diabetes mellitus, controlled (HRC) DULoxetine (CYMBALTA) 30 Take 30 mg by mouth. 0 0 10/13/2016 MG capsule eszopiclone (LUNESTA) 2 Take by mouth daily at 0 MG tablet bedtime. fluticasone (FLONASE) 50 SHAKE LIQUID AND USE 2 48 g 0 04/05/2017 MCG/ACT nasal SPRAYS IN EACH NOSTRIL solutionIndications: DAILY Chronic rhinitis folic acid 1 MG tablet Take 1 mg by mouth. 0 11/13 gabapentin (NEURONTIN) Take 400 mg in the 270 Cap 3 03/15 400 MG morning and 800 mg in capsuleIndications: the evening. Peripheral polyneuropathy HYDROcodone-acetaminophe Take 1-2 Tablets by 15 Tablet 0 n (NORCO) 5-325 MG mouth every 4 hours as tablet needed for Pain. Maximum acetaminophen dose is 4000 mg in 24 hours. hydrOXYzine HCl (ATARAX) Take 1 Tablet (25 mg) 15 Tablet 0 12/14/2021 25 MG tablet by mouth every 6 [...] 200 Each 3 PEN NEEDLE JUHI U/F) 32G two times a day. X 4 MM LANTUS SOLOSTAR 100 Inject subcutaneously. 0 05/17 UNIT/ML pen levonorgestrel (MIRENA) 1 Device by 0 11/03/2016 20 MCG/24HR IUD Intrauterine route. lisinopril (ZESTRIL) 20 TAKE 1 TABLET BY MOUTH 90 Tab 1 07/10/2016 MG tablet EVERY DAY LORazepam (ATIVAN) 0.5 Take 0.5 mg by mouth. 0 MG tablet meclizine (ANTIVERT) Take 12.5 mg by mouth. 0 01/2019 12.5 MG tablet melatonin 3 MG tablet Take 1 Tablet (3 mg) 100 Tablet 0 0805/2021 by mouth at bedtime as needed for Insomnia. metFORMIN (GLUCOPHAGE Take 3 tablets by 270 tablet 1 016 XR) 500 MG 24 hour mouth daily (every 24 release hours). tabletIndications: Type 2 diabetes mellitus, controlled (HRC) metoclopramide (REGLAN) Take 10 mg by mouth. 0 10 MG tablet Multiple Take 1 tablet by mouth 100 0 04/25/2009 Vitamins-Minerals daily (every 24 (MULTIVITAMIN OR) hours). omega-3 fatty acids daily (every 24 0 04/25/2009 (MAXEPA,FISHOIL) 1000 MG hours). capsule wrwlz-2-nzvl ethyl Take 1 g by mouth. 0 9 esters (LOVAZA) 1 g capsule omeprazole ([facility] Take 1 tablet by mouth 90 3 08/19/19 11 OMEPRAZOLE) 20 MG daily (every 24 enteric coated tablet hours). LW Comment:flex spending account LW Addl Instr:Indicated for: Acid Reflux ondansetron (ZOFRAN-ODT) Place 4 mg under 0 04/23 4 MG disintegrating tongue. tablet prochlorperazine Take 5-10 mg by mouth. 0 019 (COMPAZINE) 5 MG tablet promethazine (PHENERGAN) Take 1 Tablet by 0 04/27 25 MG tablet mouth. raNITIdine (ZANTAC) 75 Take 75 mg by mouth. 0 MG tablet rosuvastatin (CRESTOR) Take 20 mg by mouth 0 09/13 20 MG tablet daily at bedtime. temazepam (RESTORIL) 15 Take 15 mg by mouth. 0 MG capsule TRULICITY 0.75 MG/0.5ML INJECT 0.75MG 2 mL 2 6 SOPN SUBCUTANEOUSLY ONCE A WEEK VICTOZA 18 MG/3ML SOPN Inject 1.8 mg 0 11/22/2021 injection subcutaneously daily. documented as of this encounter Procedure Notes Vanna Ulloa MD - 12/23/2021 12:00 AM CDT NAME: LIZ [facility]: [id number] OPERATIVE REPORT DATE OF SURGERY: 12/23/2021 : 1965 SURGEON: VANNA ULLOA MD PREOPERATIVE DIAGNOSIS: Implant failure, left elbow dislocation. POSTOPERATIVE DIAGNOSIS: Implant failure, left elbow dislocation. PROCEDURE: Revision fixation, left elbow dislocation. WAREHOUSE FORKLIFT OPERATOR: None. TOURNIQUET TIME: Approximately 45 minutes. COMPLICATIONS: None noted. IMPLANTS: An internal joint stabilizer Boom plus 50 mm Safford pin were removed and replaced with new. The ulna plate and screws were left in situ as previously placed. ANESTHESIA: General with perioperative block. ESTIMATED BLOOD LOSS: 10 mL. COMPLICATIONS: None noted. HISTORY OF PRESENT ILLNESS: Liz is a 56-year-old woman who had an unstable elbow. She had fixationof the coronoid fragment and lateral ulnar collateral ligament. This failed and she redislocated. Last week, an internal joint stabilizer was placed without complication. When she returned to the clinic yesterday, the Safford pin had unscrewed from the Boom. It backed out somewhat. Therefore, I felt it was imperative to revise this as I did not want the elbow to redislocate. Risks, benefits, typical postoperative course were discussed with she and her . DESCRIPTION OF PROCEDURE: I identified and marked the correct site in preinduction. She was taken tothe operating room, induced under general anesthesia after being administered an antibiotic and a block. A tourniquet was placed onto the left arm and set at 250 mmHg. It was a nonsterile tourniquet. Th e arm was prepped and draped. The correct site was again identified with a pause for the cause. All of the previously placed sutures were removed prior to the Betadine prep. The arm was exsanguinated with a Delvin bandage and the tourniquet was elevated. I could actually feel the screw had a little proud and I simply pushed it in and it slid in very easily back to the bone. I then opened about the central 1/3 of the incision to show the Boom and the Safford pin backed out and uncoupled from the threadson the Boom. This was removed including the Safford pin and the clam clamp in the Boom. All of the parts were tight other than the Safford pin. These were all removed and examined and there did not appear dereje any malfunction of the instrumentation. The Boom was correctly assembled according to the client relations representative of the company who was in the room. I then slipped a 50 mm new Safford pin into the same hole and it fit nicely, seated well, and did not seem to have any windshield washering around it. Therefore, I assembled it to a new Boom. I placed theClam clamp onto the plate on the ulna, slid the Safford pin into place and tightened it to the hole in the Boom. I tightened it until there was a squeak and I was unable to tighten any further by hand. I then made sure the elbow was appropriately reduced, both by C-arm and under direct vision. The remaining 2 clamps and hinges were tightened again, using the counter torque pliers and until there was a cobalt chrome squeak. They were maximally tightened. I then ranged the elbow and again, it seemed very stable. The lateral ulnar collateral ligament repair had not failed. There were a few 0 Ethibond sutures that have come untied on the more superficial fascia and I replaced some of these. The tourniquet was deflated. There was minimal bleeding. There had been a seroma that drained on the way in. I didculture this and sent it for extended cultures although there was really no sign of infection other than fluid collection that was clear and sanguinous. The skin was then closed again with nonabsorbable monofilament. Skin was actually in great condition without significant friability or necrosis. A long-arm posterior splint with side struts was placed. Elbow flexion to 90. POSTOP PLAN: Splint should remain in place for a week for soft tissue rest. I will see her back again in another week for splint removal, AP and lateral x- rays of the left elbow, and hopefully return to some range of motion with therapy. She was given a refill of her hydrocodone. Our preop nurses were prepared for a preauthorization form. VANNA ULLOA MD DCB/AQS /[id number] documented in this encounter Miscellaneous Notes OR Nursing - Mana Gr RN - 12/23/2021 2:01 PM CDT The following hardware were removed from the patient, and per protocol, terminally sterilized and returned to patient: Pin(s) - 1 Boom and axis pin (skeletal dynamics IJS) documented in this encounter Plan of Treatment Upcoming Encounters Date Type Specialty Care Team Description 06/15/2022 Appointment Orthopedics Vanna Ulloa MD [address] [place] [address] (Wo rk) documented as of this encounter Procedures Procedure Name Priority Date/Time Associated Comments Diagnosis GLUCOSE, WHOLE BLOOD Routine 12/23/2021 3:11 PM R esults for this POCT CDT procedure are i n the results section. OPEN REDUCTION 12/23/2021 2:39 PM Left elbow pa in INTERNAL FIXATION CDT Dislocation of left ELBOW FRACTURE elbow, subsequent encounter EXTENDED Routine 12/23/2021 1:14 PM Left elbow pa in Results for this AEROBIC/ANAEROBIC CDT Dislocation of left pro cedure are in CULTURE PANEL elbow, subsequent the resul ts encounter section. ANAEROBIC CULTURE Routine 12/23/2021 1:14 PM Left elbow pain Results for this EXTENDED INCUBATION CDT Dislocation of left p rocedure are in 14 DAYS elbow, subsequent the result s encounter section. AEROBIC CULTURE Routine 12/23/2021 1:14 PM Left elbow pa in Results for this EXTENDED INCUBATION CDT Dislocation of left p rocedure are in 14 DAYS elbow, subsequent the result s encounter section. GLUCOSE, WHOLE BLOOD Routine 12/23/2021 10:26 AM Results for this POCT CDT procedure are i n the results section. GLUCOSE, WHOLE BLOOD Routine 12/23/2021 10:24 AM Results for this POCT CDT procedure are i n the results section. US ANESTHESIA GUIDED STAT 12/23/2021 10:17 AM Results for this BLOCK CDT procedure are i n the results section. documented in this encounter Results Glucose, Whole Blood POCT (12/23/2021 3:11 PM CDT) [facility] Method Time Signature Glucose, Whole 180 70 - 180 12/23/2021 [facility] Blood mg/dL 3:13 PM CDT LABORATORY Performing [facility] 12/23/2021 [facility] Location 3:13 PM CDT LABORATORY Specimen Anatomical Collection Method Collection Time Receive d Time (Source) Location / / Volume Laterality Blood 12/23/2021 3:11 PM 3:13 CDT PM CDT Vanna Ulloa MD LAB_1 Performing Organization Address City/State/ZIP Code Phon e Number [facility] [address] [place] [address] Anaerobic Culture Extended Incubation 14 Days (12/23/2021 1:14 PM CDT) [facility] Method Time Signature Anaerobic No Anaerobes 01/06/2022 [facility] Culture, Isolated 9:24 AM CDT HOSPITAL Extended Incubation 14 Days Specimen (Source) Anatomical Collection Method Collection Time Re ceived Time Location / / Volume Laterality Swab (Source [facility] 12/23/2021 1:14 PM Required) STRUCTURE / CDT Unknown Vanna Ulloa MD LAB_1 Performing Organization Address City/[facility]/ZIP Code Phon e Number [address] [address] Aerobic Culture Extended Incubation 14 Days (12/23/2021 1:14 PM CDT) [facility] Method Time Signature Aerobic No Growth 01/06/2022 [facility] Culture 8:20 PM CDT HOSPITAL Extended Incubation Gram Smear No PMN's 01/06/2022 [facility] Present 8:20 PM CDT HOSPITAL Gram Smear No Organisms 01/06/2022 [facility] Seen 8:20 PM CDT HOSPITAL Specimen (Source) Anatomical Collection Method Collection Time Re ceived Time Location / / Volume Laterality Swab (Source [facility] 12/23/2021 1:14 PM Required) STRUCTURE / CDT Unknown Vanna Ulloa MD LAB_1 Performing Organization Address [facility]/ZIP Code Phon e Number [address] [address] Glucose, Whole Blood POCT (12/23/2021 10:26 AM CDT) [facility] gist Method Time Signature Glucose, Whole 142 70 - 180 12/23/2021 [facility] Blood mg/dL 10:28 AM CDT LABORATORY Performing [facility] 12/23/2021 [facility] Location 10:28 AM CDT LABORATORY Specimen Anatomical Collection Method Collection Time Receive d Time (Source) Location / / Volume Laterality Blood 12/23/2021 10:26 12/23/2021 AM CDT 10:28 AM CDT Vanna Ulloa MD LAB_1 Performing Organization Address [facility] Phon e Number [facility] [address] [place] [address] (ABNORMAL) Glucose, Whole Blood POCT (12/23/2021 10:24 AM CDT) [facility] gist Method Time Signature Glucose, Whole <10 (LL) 70 - 180 12/23/2021 [facility] Blood mg/dL 10:27 AM CDT LABORATORY POCT Comment 1 RN Notified 12/23/2021 [facility] 10:27 AM CDT LABORATORY Performing [facility] 12/23/2021 [facility] Location 10:27 AM CDT LABORATORY Specimen Anatomical Collection Method Collection Time Receive d Time (Source) Location / / Volume Laterality Blood 12/23/2021 10:24 12/23/2021 AM CDT 10:27 AM CDT Vanna Ulloa MD LAB_1 Performing Organization Address [facility]/ZIP [facility] Phon e Number [facility] [address] [place] [address] [place] Anesthesia Guided Block (12/23/2021 10:17 AM CDT) Anatomical Region Laterality Modality Ultrasound Specimen (Source) Anatomical Location Collection Method / Collectio n Time Received Time / Laterality Volume Narrative 12/23/2021 10:17 AM CDT If an Anesthesia block was performed please see the Anesthesia encounter for documentation. ??This procedure was performed and interpreted by the performing provider. ?? Gwyn Padilla MD [facility] [[email or web address]] documented in this encounter Visit Diagnoses Diagnosis Left elbow pain Pain in joint, upper arm Dislocation of left elbow, subsequent en counter documented in this encounter Admitting Diagnoses Diagnosis Dislocation of left elbow Left elbow pain Pain in joint, upper arm documented in this encounter Administered Medications Inactive Administered Medications - up to 3 most recent administrations Medication Order MAR Action Action Date Dose Rate Site fentaNYL (SUBLIMAZE) injection 25-50 mcg 25-50 mcg, Intravenous, [id number], Other, Moderate to Severe Pain (pain score 5 and above) in the immediate postop period when faster on-s et, short acting agent is desired., Starting on Tue12/23/21 at 101 6, Until Tue12/23/21 at 1859, Administer every 5 minutes as needed, to a maximum cumulative dose of 250 mcg. For patients with a regional, spinal, or local anesth etic, may give for anticipated pain as the anesthetic wears off., PACU/Recovery fentaNYL (SUBLIMAZE) injection 25-50 mcg Given 12/23/2021 11:05 AM CDT 50 mcg 25-50 mcg, Intravenous, [id number], Pain, Procedure, Starting on Tue12/23/21 at 1033, Until Tue12/23/21 at 1859, For 2 doses, As directed by anesthesiologist, Pre-op hydrALAZINE (APRESOLINE) injection 5 mg 5 mg, Intravenous, Q10MIN PRN, Other, Hi gh Blood Pressure, MAX 4 doses, hold for HR <50, Starting on Tue12/23/21 at 1016, Un til Tue12/23/21 at 1859, For 4 doses, Call Anesthesiologist before administration. Give as direct ed by Anesthesiologist., PACU/Recovery lactated ringers infusion Started 12/23/2021 1:05 PM CDT Intravenous, at 30 mL/hr, CONTINUOUS, Starting on Tue12/23/21 at 1100, Pre-op Continue from Pre-Op 12/23/2021 12:34 PM CDT Started 12/23/2021 12:21 PM CDT midazolam (VERSED) injection 1-2 mg Given 12/23/2021 11:05 AM CDT 1 mg 1-2 mg, Intravenous, [id number], Sedation, Anxiety, Procedure, Starting on Tue12/23/21 at 1033, Until Tue12/23/21 at 1858, As directed by anesthesiologist MAX Dose 2mg, Pre-op morphine injectable 1-2 mg 1-2 mg, Intravenous, Q15MIN PRN, Pain, S evere1 mg for Mild to Moderate Pain (pain score 1-5), 2 mg for Moderate to Severe Pain (pain sco re 6 and above) in the immediate postop period when longer acti ng agent is desired and HYDROmorphone is not tolerated., Starting on Tue12/23/21 at 1016, Until Tue12/23/21 at 1858, Maximum cumulative dose is 12 mg in PACU; Call Anesthesiologis t if additional dosage needed. For patients with a regional, spinal, or local anesthetic, may give for anticipated pain as the anesthetic wears off., PACU/Re covery naloxone (NARCAN) injection 0.08 mg 0.08 mg, Intravenous, PRN, Other, For respiratory rate less than 8/minute or patient difficult to arouse, Starting on Tue12/23/21 at 1016, Until Tue12/23/21 at 1858, May repeat every 3 minutes or until patient is r esponsive to physical stimulation and is able to take deep hong aths. Maximum cumulative dose is 0.4 mg (1 mL). Continue to observe; if no response after administering total dose of 0.4 mg notify anesthesiologist STAT., PACU/Recovery naloxone (NARCAN) injection 0.4 mg 0.4 mg, Intravenous, ONCE PRN, Opioid Re versal, Starting on Tue12/23/21 at 1016, Until Tue12/23/21 at 1858, For 1 dose, F or imminent respiratory arrest. Notify MD if naloxone is given., PACU/Recovery ondansetron (ZOFRAN) injection 4 mg 4 mg, Intravenous, Q4H PRN, Nausea, Vomiting, Starting on Tue12/23/21 at 1016, Until Tue12/23/21 at 1858, If multiple medications are ordered for nausea or vomiting - administer in the following priority based on medications ordered, effectiveness and availability: ondanset soheila (ZOFRAN) > prochlorPERAZINE (COMPAZINE) > diphenhydrAMINE (BENADRYL) > hydrOXYzi ne HCl (VISTARIL)> ePHEDrine > scopolamine (TRANSDERM-SCOP)., PACU/Recovery documented in this encounter Active and Recently Administered Medications Times are shown in CDT. Scheduled Medication Order 12/21/2021 12/22/2021 12/23/2021 ceFAZolin (ANCEF) 3 g in sodium chloride 0.9 % 50 mL IVPB (COMPL ETED) 1234 (Started - Provider: Raul Mccullough APRN, JULIAN)1246 (Bolus - Provider: Raul Mccullough APRN, CRNA) 3 g, Intravenous, Administer over 30 Min utes, ONCE, On Tue12/23/21 at 1030, For 1 dose, Infuse within 60 minutes prior to incision Allergy to penicillin; consult day of surgery, check reaction history, assess previous surgical records, other antibiotics previously used by patient, & timeline of reactions if known: if reaction includes; rash, itching, GI disturbance, headache, hives, laryngeal tonny a, bronchospasm, angioedema, anaphylaxis , or a documented elevated serum tryptase after a reaction, or a vague reaction history: Administer ONLY cefazolin, DO NOT ADMINISTER ANY OTHER cephalosporin pre- operatively. Re-dose 2 gram IV every 4 h ours after initial dose until incision closed., Pre-op Continuous Medication Order 12/21/2021 12/22/2021 12/23/2021 lactated ringers infusion 1221 ( Started - Provider: Raul Mccullough APRN, JULIAN)1234 (Continue from Pre-Op - Provider: Raul Mccullough APRN, CRNA)1305 (Started - Provider: Raul Mccullough APRN, JULIAN)1341 (Anesthesia Fluid - Provider: Raul Mccullough APRN, JULIAN) Intravenous, at 30 mL/hr, CONTINUOUS, Starting on Tue12/23/21 at 1100, Pre-op 1451 (Anesthesia Fluid - Provider: Raul Mccullough APRN, JULIAN) PRN Medication Order 12/21/2021 12/22/2021 12/23/2021 fentaNYL (SUBLIMAZE) injection 25-50 mcg 25-50 mcg, Intravenous, [id number], Other, Moderate to Severe Pain (pain score 5 and above) in the immediate postop period when faster on-set, short acting agent is desired., Starting on Tue12/23/21 at 10 16, Until Tue12/23/21 at 1858, Administe r every 5 minutes as needed, to a maximum cumulative dose of 250 mcg. For patients with a regional, spinal, or local anesthetic, may give for anticipated pain as the anesthetic wears off., PACU/Recovery fentaNYL (SUBLIMAZE) injection 25-50 mcg 1105 (Given - Provider: Ale Currie RN) 25-50 mcg, Intravenous, [id number], Pain, Procedure, Starting on Tue12/23/21 at 1033, Until Tue12/23/21 at 1858, For 2 doses, As directed by anesthesiologist, Pre-op hydrALAZINE (APRESOLINE) injection 5 mg 5 mg, Intravenous, Q10MIN PRN, Other, Hi gh Blood Pressure, MAX 4 doses, hold for HR <50, Starting on Tue12/23/21 at 1016, Until Tue12/23/21 at 1858, For 4 doses, Call Anesthesiologist before administ ration. Give as directed by Anesthesiologist., PACU/Recovery ketorolac (TORADOL) injection 15 mg 15 mg, Intravenous, Q6H PRN, Other, Mild Pain (pain score 1-4), Starting on Tue12/23/21 at 1502, Until Tue12/23/21 at 1858, For 3 days, Start at least 6 hours after celecoxib (CELEBREX) if given. Do not give to patients over age of 80. Give i f unable to take oral medications. Contraindicated for patients with CrCl less than 60 mL/min, [place], or history of GI bleed., Post-op midazolam (VERSED) injection 1-2 mg 1105 (Given - Provider: Ale Currie RN) 1-2 mg, Intravenous, [id number], Sedation, Anxiety, Procedure, Starting on Tue12/23/21 at 1033, Until Tue12/23/21 at 1858, As directed by anesthesiologist MAX Dose 2mg, Pre-op morphine injectable 1-2 mg 1-2 mg, Intravenous, Q15MIN PRN, Pain, S evere1 mg for Mild to Moderate Pain (pain score 1-5), 2 mg for Moderate to Severe Pain (pain score 6 and above) in the immediate postop period when longer acting agent is desired and HYDROmorphone is no t tolerated., Starting on Tue12/23/21 at 1016, Until Tue12/23/21 at 185, Maximum cumulative dose is 12 mg in PACU; Call Anesthesiologist if additional dosage nee ded. For patients with a regional, spina l, or local anesthetic, may give for anticipated pain as the anesthetic wears off., PACU/Recovery naloxone (NARCAN) injection 0.08 mg 0.08 mg, Intravenous, PRN, Other, For re spiratory rate less than 8/minute or patient difficult to arouse, Starting on Tue12/23/21 at 1016, Until Tue12/23/21 at 1858, May repeat every 3 minutes or until patient is responsive to physical stimul ation and is able to take deep breaths. Maximum cumulative dose is 0.4 mg (1 mL). Continue to observe; if no response after administering total dose of 0.4 mg notify anesthesiologist STAT., PACU/Recovery naloxone (NARCAN) injection 0.4 mg 0.4 mg, Intravenous, ONCE PRN, Opioid Re versal, Starting on Tue12/23/21 at 1016, Until Tue12/23/21 at 1858, For 1 dose, For imminent respiratory arrest. Notify MD if naloxone is given., PACU/Recovery ondansetron (ZOFRAN) injection 4 mg 4 mg, Intravenous, Q4H PRN, Nausea, Vomi ting, Starting on Tue12/23/21 at 1016, Until Tue12/23/21 at 185, If multiple medications are ordered for nausea or vomiting - administer in the following priorit y based on medications ordered, effectiv eness and availability: ondansetron (ZOFRAN) > prochlorPERAZINE (COMPAZINE) > diphenhydrAMINE (BENADRYL) > hydrOXYzine HCl (VISTARIL)> ePHEDrine > scopolamine (TRANSDERM-SCOP)., PACU/Recovery documented in this encounter Additional Health Concerns Infection Onset Date Last Indicated Resolved Time COVID19 12/22/2021 12/22/2021 01/02/2022 3:17 AM CDT documented as of this encounter Care Teams Electrical Automation Engineer Relationship Specialty Start Date End Date Sonia Pérez PA-C PCP - General Physician Trailhead Maintenance Worker 01/10/17 1601 [facility] [address] [place] [address] documented as of this encounter
--- OUTSIDE RECORDS SUMMARY | 2022-04-22 13:58 | XMS_ITS | Encounter Summary ---
:1965 Author Organization [employer] Address [address] [place] [address] Care Team Providers Name Role Phone Sonia Pérez PA-C Primary Care Provider Reason for Visit Auth/Cert (Routine) Specialty Diagnoses / Procedures Referred By Contact Refer red To Contact Diagnoses Left elbow pain Dislocation of left elbow, subsequent encounter Procedures OPEN TX ACUTE/CHRONIC ELBOW DISLOC revision FIXATION ELBOW dislocation Referral ID Status Reason Start Date Expiration Date Visits Requ ested Visits Authorized [id number] 1 1 Encounter Details Date Type Department Care Team Description 12/23/2021 Surgery [facility] Vanna Ulloa MD revision FIXATION [address] [facility] D[address] [facility] [address] ELBOW dislocation [place], [place] [address] [place], [place] [phone] (Wo rk) Social History Tobacco Use Types [...] Sign Reading Time Taken Comments Blood Pressure 98/66 12/23/2021 11:20 AM CDT Pulse 71 12/23/2021 11:20 AM CDT Temperature 36.9 ??C (98.4 ??F) 12/23/2021 10:10 AM CDT Respiratory Rate 16 12/23/2021 11:20 AM CDT Oxygen Saturation 92% 12/23/2021 11:20 AM CDT Inhaled Oxygen Concentration - - Weight [...] 3 times Diabetes type 2, daily. uncontrolled Sqayajx-Mzbvgkseo-Hycb Take 1 Tablet by 0 [phone] [...] 1 Tablet (3 mg) 100 Tablet 0 08/0 05/2021 by mouth at bedtime as needed [...] 0 04/25/2009 (MAXEPA,FISHOIL) 1000 MG hours). capsule pkhyb-9-hzrj ethyl Take 1 g by mouth. 0 [...] - 12/23/2021 12:00 AM CDT NAME: LIZ EBCK CSN: [id number] OPERATIVE REPORT DATE OF SURGERY: 12/23/2021 : 1965 SURGEON: VANNA ULLOA MD PREOPERATIVE DIAGNOSIS: Implant failure, left elbow dislocation. POSTOPERATIVE DIAGNOSIS: Implant failure, left elbow dislocation. PROCEDURE: Revision fixation, left elbow dislocation. ENGRAVER LETTER: None. TOURNIQUET TIME: Approximately 45 minutes. COMPLICATIONS: None noted. IMPLANTS: An internal joint stabilizer Boom plus 50 mm [place] pin were removed and replaced with new. [...] she returned to the clinic yesterday, the [place] pin had unscrewed from the Boom. It [...] incision to show the Boom and the [place] pin backed out and uncoupled from the threadson the Boom. This was removed including the [place] pin and the clam clamp in the Boom. All of the parts were tight other than the Gretna pin. These were all removed and examined and there did not appear dereje any malfunction of the instrumentation. The Boom was correctly assembled according to the sales representative trainee of the company who was in the room. I then slipped a 50 mm new Gretna pin into the same hole and it fit nicely, seated well, and did not seem to have any windshield washering around it. Therefore, I assembled it to a new Boom. I placed theClam clamp onto the plate on the ulna, slid the Gretna pin into place and tightened it to [...] for a preauthorization form. VANNA ULLOA MD DCB/JOSETTES /[id number] documented in this encounter Miscellaneous Notes OR [...] 06/15/2022 Appointment Orthopedics Vanna Ulloa MD [address] [facility] [place] [address] (Wo rk) documented as of this encounter [...] Whole Blood POCT (12/23/2021 3:11 PM CDT) [facility] Method Time Signature Glucose, Whole 180 70 - 180 12/23/2021 [facility] Blood mg/dL 3:13 PM CDT LABORATORY Performing [facility] 12/23/2021 [facility] Location 3:13 PM CDT LABORATORY Specimen Anatomical Collection Method Collection Time Receive d Time (Source) Location / / Volume Laterality Blood 12/23/2021 3:11 PM 3:13 CDT PM CDT Vanna Ulloa MD LAB_1 Performing Organization Address City/[facility]/ZIP Code Phon e Number [facility] [address] [place] [address] Anaerobic Culture Extended Incubation 14 Days (12/23/2021 1:14 PM CDT) [facility] Method Time Signature Anaerobic No Anaerobes 01/06/2022 [facility] Culture, Isolated 9:24 AM CDT HOSPITAL Extended Incubation 14 Days Specimen (Source) Anatomical Collection Method Collection Time Re ceived Time Location / / Volume Laterality Swab (Source [facility] REGION 12/23/2021 1:14 PM Required) STRUCTURE / CDT Unknown Vanna Ulloa MD LAB_1 Performing Organization Address [facility]/ZIP Code Phon e Number [address] [address] Aerobic Culture Extended Incubation 14 Days (12/23/2021 1:14 PM CDT) [facility] Method Time Signature Aerobic No Growth 01/06/2022 [...] Vanna Ulloa MD LAB_1 Performing Organization Address [facility]/ZIP Code Phon e Number [address] [address] Glucose, Whole Blood POCT (12/23/2021 10:26 AM CDT) [facility] Method Time Signature Glucose, Whole 142 70 - 180 12/23/2021 [facility] Blood mg/dL 10:28 AM CDT LABORATORY Performing [facility] 12/23/2021 [facility] Location 10:28 AM CDT LABORATORY Specimen Anatomical Collection Method Collection Time Receive d Time (Source) Location / / Volume Laterality Blood 12/23/2021 10:26 12/23/2021 AM CDT 10:28 AM CDT Vanna Ulloa MD LAB_1 Performing Organization Address [facility]/ZIP Code Phon e Number [facility] [address] [place] [address] (ABNORMAL) Glucose, Whole Blood POCT (12/23/2021 10:24 AM CDT) [facility] Method Time Signature Glucose, Whole <10 (LL) 70 - 180 12/23/2021 [facility] Blood mg/dL 10:27 AM CDT LABORATORY POCT Comment 1 RN Notified 12/23/2021 [facility] 10:27 AM CDT LABORATORY Performing [facility] 12/23/2021 [facility] Location 10:27 AM CDT LABORATORY Specimen Anatomical Collection Method Collection Time Receive d Time (Source) Location / / Volume Laterality Blood 12/23/2021 10:24 12/23/2021 AM CDT 10:27 AM CDT Vanna Ulloa MD LAB_1 Performing Organization Address [facility]/ZIP [facility] Phon [place] Number [facility] [address] [place] [address] [place] Anesthesia Guided Block (12/23/2021 10:17 AM CDT) Anatomical Region Laterality Modality Ultrasound Specimen (Source) Anatomical Location Collection Method / Collectio n Time Received Time / Laterality Volume Narrative 12/23/2021 10:17 AM CDT If an Anesthesia block was performed please see the Anesthesia encounter for documentation. ??This procedure was performed and interpreted by the performing provider. ?? Gwyn Padilla MD [facility] documented in this encounter Visit Diagnoses Diagnosis [...] (SUBLIMAZE) injection 25-50 mcg 25-50 mcg, Intravenous, [id number], Other, Moderate to Severe Pain (pain score [...] AM CDT 50 mcg 25-50 mcg, Intravenous, [id number], Pain, Procedure, Starting on Tue12/23/21 at 1033, Until Tue12/23/21 at 185, For 2 doses, As directed by anesthesiologist, Pre-op hydrALAZINE (APRESOLINE) injection 5 mg 5 mg, Intravenous, Q10MIN PRN, Other, Hi gh Blood Pressure, MAX 4 doses, hold for HR <50, Starting on Tue12/23/21 at 1016, Un til Tue12/23/21 at 185, For 4 doses, Call Anesthesiologist before administration. Give as direct ed by Anesthesiologist., PACU/Recovery lactated ringers infusion Started 12/23/2021 1:05 PM CDT Intravenous, at 30 mL/hr, CONTINUOUS, Starting on Tue12/23/21 at 1100, Pre-op Continue from Pre-Op 12/23/2021 12:34 PM CDT Started 12/23/2021 12:21 PM CDT midazolam (VERSED) injection 1-2 mg Given 12/23/2021 11:05 AM CDT 1 mg 1-2 mg, Intravenous, [id number], Sedation, Anxiety, Procedure, Starting on Tue12/23/21 at 1033, Until Tue12/23/21 at 1859, As directed by anesthesiologist MAX Dose 2mg, [...] Tue12/23/21 at 1016, Until Tue12/23/21 at 185, May repeat every 3 minutes or until [...] Tue12/23/21 at 1016, Until Tue12/23/21 at 185, For 1 dose, F or imminent respiratory [...] (COMPL ETED) 1234 (Started - Provider: Raul Mccullough, MANAGER PHOTO, STAFF EDITOR)1246 (Bolus - Provider: Raul Mccullough APRN, CRNA) [...] ( Started - Provider: Raul Mccullough APRN, CRNA)1234 (Continue from Pre-Op - Provider: Raul Mccullough APRN, CRNA)1305 (Started - Provider: Raul Mccullough APRN, JULIAN)1341 (Anesthesia Fluid - Provider: Raul Mccullough APRN, JULIAN) Intravenous, at 30 mL/hr, CONTINUOUS, Starting on Tue12/23/21 at 1100, Pre-op 1451 (Anesthesia Fluid - Provider: Raul Mccullough APRN, JULIAN) PRN Medication Order 12/21/2021 12/22/2021 12/23/2021 fentaNYL (SUBLIMAZE) injection 25-50 mcg 25-50 mcg, Intravenous, [id number], Other, Moderate to Severe Pain (pain score 5 and above) in the immediate postop period when faster on-set, short acting agent is desired., Starting on Tue12/23/21 at 10 16, Until Tue12/23/21 at 1859, Administe r every 5 minutes as needed, to a maximum cumulative dose of 250 mcg. For patients with a regional, spinal, or local anesthetic, may give for anticipated pain as the anesthetic wears off., PACU/Recovery fentaNYL (SUBLIMAZE) injection 25-50 mcg 1105 (Given - Provider: Ale Currie RN) 25-50 mcg, Intravenous, [id number], Pain, Procedure, Starting on Tue12/23/21 at 1033, [...] patients with CrCl less than 60 mL/min, [place], or history of GI bleed., Post-op midazolam (VERSED) injection 1-2 mg 1105 (Given - Provider: Ale Currie RN) 1-2 mg, Intravenous, [id number], Sedation, Anxiety, Procedure, Starting on Tue12/23/21 at [...] on Tue12/23/21 at 1016, Until Tue12/23/21 at 1859, May repeat every 3 minutes or until [...] on Tue12/23/21 at 1016, Until Tue12/23/21 at 1859, For 1 dose, For imminent respiratory arrest. [...] documented as of this encounter Care Teams Reference Services Head Relationship Specialty Start Date End Date Sonia Pérez PA-C PCP - General Physician Neurological Physiotherapist 01/10/17 1601 [facility] [address] [place] [address] documented as of this encounter
--- OUTSIDE RECORDS SUMMARY | 2022-04-22 13:58 | XMS_ITS | Encounter Summary ---
:1965 Author Organization [facility] Address [address] [place] [address] Care Team Providers Name Role Phone Sonia Pérez PA-C Primary Care Provider Reason for Visit (Routine) - Incomplete Specialty Diagnoses / Procedures Referred By Contact Refer red To Contact Procedures Suri Blake MD US Anesthesia Guided Block [address] [place], [place] [address] Referral ID Status Reason Start Date Expiration Date Visits V isits Requested Authorized [id number] Incomplete 12/14/2021 03/15/2023 1 1 Encounter Details Date Type Department Care Team Description 12/14/2021 Ancillary Procedure Radiology PACS [address] [place] [address] Social History Tobacco Use Types Packs/Day Years [...] 06/15/2022 Appointment Orthopedics Vanna Ulloa MD [address] [place], [place] [address] (Wo rk) documented as of this encounter Procedures Procedure Name Priority Date/Time Associated Comments Diagnosis US ANESTHESIA GUIDED Routine 12/14/2021 10:38 AM Results for this BLOCK CDT procedure are i n the results section. documented in this encounter Results US Anesthesia Guided Block (12/14/2021 10:38 AM CDT) Anatomical Region Laterality Modality Ultrasound Specimen (Source) Anatomical Location Collection Method / Collectio n Time Received Time / Laterality Volume Narrative 12/14/2021 10:38 AM CDT If an Anesthesia block was performed please see the Anesthesia encounter for documentation. ??This procedure was performed and interpreted by the performing provider. ?? Suri Blake MD [facility] US documented in this encounter Visit Diagnoses Not on filedocumented in this encounter Care Teams Silver Buffer Relationship Specialty Start Date End Date Sonia Pérez PA-C PCP - General Physician Subacute Nurse 01/10/17 1601 [facility] [address] [place] [address] documented as of this encounter
--- OUTSIDE RECORDS SUMMARY | 2022-04-22 13:58 | XMS_ITS | Encounter Summary ---
:1965 Author Organization [facility] Address [address] [place] [address] Care Team Providers Name Role Phone Sonia Pérez PA-C Primary Care Provider Reason for Visit Procedure/Equipment (Routine) - Incomplete Specialty Diagnoses / Procedures Referred By Contact Refer red To Contact Diagnoses Surgery, elective Vanna Ulloa MD Procedures CLYDE Fluoroscopy Up To 1 Hour [address] [place], [place] [address] Referral ID Status Reason Start Date Expiration Date Visits V isits Requested Authorized [id number] Incomplete 12/11/2021 03/12/2023 1 1 Encounter Details Date Type Department Care Team Description 12/14/2021 Ancillary Procedure [facility] Vanna Ulloa S urgery, elective Surgery Center [address] [facility] [address] [place] [address] [phone] Social History Tobacco Use Types Packs/Day Years [...] Vanna Ulloa MD [address] [facility] [address] [place] [address] (Wo rk) documented as of this encounter Procedures Procedure Name Priority Date/Time Associated Comments Diagnosis CLYDE FLUOROSCOPY UP TO Routine 12/14/2021 3:53 PM Surgery, elec tive Results for this 1 HOUR CDT procedure are i n the results section. documented in this encounter Results CLYDE Fluoroscopy Up To 1 Hour (12/14/2021 3:53 PM CDT) Anatomical Region Laterality Modality Radiographic Imaging Specimen (Source) Anatomical Location Collection Method / Collectio n Time Received Time / Laterality Volume Narrative 12/14/2021 3:53 PM CDT These images were obtained during a surg ical procedure. Vanna Ulloa MD RAD NON-REPORTABLES documented in this encounter Visit Diagnoses Diagnosis Surgery, elective Unspecified elective surgery for purpose s other than remedying health states documented in this encounter Care Teams It Security Specialist Relationship Specialty Start Date End Date Sonia Pérez PA-C PCP - General Physician Smoke Inspector 01/10/17 1601 [facility] [address] [address] [place] [address] documented as of this encounter
--- OUTSIDE RECORDS SUMMARY | 2022-04-22 13:58 | XMS_ITS | Encounter Summary ---
:1965 [address] [facility] Address [address] [place] [address] Care Team Providers Name Role Phone Sonia Pérez PA-C Primary Care Provider Encounter Details Date Type Department Care Team Description 12/22/2021 Lab Visit [facility] Dislocation of left elbow, [address] [place] [address] Social History Tobacco Use Types Packs/Day Years [...] 06/15/2022 Appointment Orthopedics Vanna Ulloa MD [address] [facility] [address] [place], [place] [address] (Wo rk) documented as of this encounter Procedures Procedure Name Priority Date/Time Associated Diagnosis Comme nts 2019 NOVEL Routine 12/22/2021 3:29 PM Dislocation of left Re sults for this CORONAVIRUS CDT elbow, subsequent procedure are in encounter the results section. documented in this encounter Results (ABNORMAL) 2018 Novel Coronavirus (COVID-19) (12/22/2021 3:29 PM CDT) [facility] Time Signature COVID-19 Detected Not 12/23/2021 [facility] Interpretation (A) Detected 2:20 AM CENTRAL LAB CDT Source Nares, left 12/23/2021 [facility] and right 2:20 AM CENTRAL LAB CDT Specimen Anatomical Collection Method Collection Time Receive d Time (Source) Location / / Volume Laterality Swab (Source Non-blood 12/22/2021 3:29 PM 3:29 Required) Collection / CDT PM CDT Unknown Narrative [facility] - 12/23/2021 2:20 AM CDT Test performed by Chairman & Ceo Mediated Amplification. TMA has been shown to be equivalent to commercial real-time PCR t ests. This test has been authorized by the FDA under Emergency Use Authorization (E UA) for use by authorized laboratories. Vanna Ulloa MD LAB_1 Performing Organization Address City/State/ZIP Code Phon e Number [facility] [address] [place] [address] documented in this encounter Visit Diagnoses Diagnosis Dislocation of left elbow, subsequent en counter documented in this encounter Care Teams Plumbing Manager Relationship Specialty Start Date End Date Sonia Pérez PA-C PCP - General Physician Designer/Writer 01/10/[address] [address] documented as of this encounter
--- OUTSIDE RECORDS SUMMARY | 2022-04-22 13:58 | XMS_ITS | Encounter Summary ---
:1965 Author Organization [facility] Address [address], [place] [address] Care Team Providers Name Role Phone Sonia Pérez PA-C Primary Care Provider Encounter Details Date Type Department Care Team Description 12/11/2021 Notes/Orders [facility] TER Vanna Ulloa MD [address] [facility] [address] [place] [address] [address] [place] [address] [place] [address] [phone] (Wo rk) Social History Tobacco Use Types [...] Orthopedics Vanna Ulloa MD [address] [facility] [place] [address] (Wo rk) documented as of this encounter Visit Diagnoses Not on filedocumented in this encounter Care Teams Sourcing Engineer Relationship Specialty Start Date End Date Sonia Pérez PA-C PCP - General Physician Senior Firmware Engineer 01/10/17 1601 [facility] [address] [place] [id number] documented as of this encounter
--- OUTSIDE RECORDS SUMMARY | 2022-04-22 13:58 | XMS_ITS | Encounter Summary ---
:1965 Author Organization [employer] Address [address] [place] [address] Care Team Providers Name Role Phone Sonia Pérez PA-C Primary Care Provider Encounter Details Date Type Department Care Team Description 12/14/2021 Surgery [facility] Vanna Ulloa MD Revision open [address] [facility] [address] [facility] [address] reduction internal [place], [place] [address] [place], [place] fixation LEFT elbow [phone] fracture dislocation [phone] (Wo rk) Social History Tobacco Use Types [...] Sign Reading Time Taken Comments Blood Pressure 90/63 12/14/2021 12:08 PM CDT Pulse 66 12/14/2021 12:08 PM CDT Temperature 36.7 ??C (98 ??F) 12/14/2021 10:11 AM CDT Respiratory Rate 14 12/14/2021 12:08 PM CDT Oxygen Saturation 96% 12/14/2021 12:08 PM CDT Inhaled Oxygen Concentration - - [...] 3 times Diabetes type 2, daily. uncontrolled Aecmjup-Nwtleeaup-Pfdo Take 1 Tablet by 0 [phone] [...] 1 Tablet (3 mg) 100 Tablet 0 05/2021 by mouth at bedtime as needed [...] 0 04/25/2009 (MAXEPA,FISHOIL) 1000 hours). MG capsule bzeoz-8-xfqs ethyl Take 1 g by mouth. 0 [...] 12/14/2021 12:00 AM CDT NAME: LIZ BECK CSN: [id number] OPERATIVE REPORT DATE OF SURGERY: 12/14/2021 : 1965 SURGEON: VANNA ULLOA MD PREOPERATIVE DIAGNOSIS: Left elbow instability. POSTOPERATIVE DIAGNOSIS: Left elbow instability. PROCEDURE: Revision open reduction and internal fixation, left elbow dislocation. ANESTHESIA: General with a block for perioperative management. DIMENSION QUARRY SUPERVISOR: Evans Hopson MD, PGY-4. POSITION: Supine. ESTIMATED [...] there are problems. I gave her 20 [place]. I called the pharmacy as they have had trouble filling repeated prescriptions. She should be able to fill it based on her last fill of 12, which is a 3-day supply that was done 2 days ago. Discouraged any further refills. VANNA ULLOA MD DCB/AQS /[id number] documented in this encounter Plan of Treatment Upcoming Encounters Date Type Specialty Care Team Description 06/15/2022 Appointment Orthopedics Vanna Ulloa MD [address] [place], [place] [id number] (Wo rk) documented as of this encounter [...] Whole Blood POCT (12/14/2021 4:48 PM CDT) [facility] Method Time Signature Glucose, Whole 183 (H) 70 - 180 12/14/2021 [facility] Blood mg/dL 4:50 PM CDT LABORATORY Performing [facility] 12/14/2021 [facility] Location 4:50 PM CDT LABORATORY Specimen Anatomical Collection Method Collection Time Receive d Time (Source) Location / / Volume Laterality Blood 12/14/2021 4:48 PM 4:50 CDT PM CDT Vanna Ulloa MD LAB_1 Performing Organization Address City/State/ZIP Code Phon e Number [facility] [address] [place] [address] [place] Anesthesia Guided Block (12/14/2021 10:38 AM CDT) Anatomical Region Laterality Modality Ultrasound Specimen (Source) Anatomical Location Collection Method / Collectio n Time Received Time / Laterality Volume Narrative 12/14/2021 10:38 AM CDT If an Anesthesia block was performed please see the Anesthesia encounter for documentation. ??This procedure was performed and interpreted by the performing provider. ?? Suri Blake MD [facility] US Glucose, Whole Blood POCT (12/14/2021 9:57 AM CDT) [facility] gist Method Time Signature Glucose, Whole 149 70 - 180 12/14/2021 [facility] Blood mg/dL 10:32 AM CDT LABORATORY Performing [facility] 12/14/2021 [facility] Location 10:32 AM CDT LABORATORY Specimen Anatomical Collection Method Collection Time Receive d Time (Source) Location / / Volume Laterality Blood 12/14/2021 9:57 AM 2 CDT 10:32 AM CDT Vanna Ulloa MD LAB_1 Performing Organization Address City/State/ZIP Code Phon e Number [facility] [address] [place] [address] documented in this encounter Visit Diagnoses Diagnosis Elbow pain, left Pain in joint, upper arm documented in this encounter Administered Medications Inactive Administered Medications - up to 3 most recent administrations Medication Order MAR Action Action Date Dose Rate Site celecoxib (CeleBREX) capsule 400 Given 12/14/2021 10:32 AM CDT 4 00 mg mg 400 mg, Oral, ONCE, On Tue12/14/21 at 1015, For 1 dose, Pre-op dextrose 5 % infusion at 250 mL/hr, ONCE PRN, Other, for nausea if all other options have failed and patient is not diabetic., Starting on Mo n 12/14/21 at 0949, For 1 dose, PACU/Recovery diphenhydrAMINE (BENADRYL) injection 25 mg 25 mg, Intravenous, ONCE PRN, Other, for Nausea or Vomiting, Starting on 12/14/21 at 0949, Until Tue12/14/21 at 2028, For [...] (SUBLIMAZE) injection 25-50 mcg 25-50 mcg, Intravenous, [id number], Other, 25 mcg for Mi ld to [...] AM CDT 50 mcg 25-50 mcg, Intravenous, [id number], Pain, Procedure, Starting on Tue12/14/21 at 1038, [...] (VERSED) injection 0.5-1 mg 0.5-1 mg, Intravenous, [id number], Anxiety , Starting on Tue12/14/21 at 0949, Until Tue12/14/21 at 2028, Maximum cumulative dose is 2 mg. TO BE GIVEN IN PACU ONLY., PACU/Recovery midazolam (VERSED) injection 1-2 mg Given 12/14/2021 11:42 AM CDT 1 mg 1-2 mg, Intravenous, [id number], Sedation, Anxiety, Procedure, Starting on Tue12/14/21 at [...] (COMPL ETED) 1259 (Started - Provider: Yaya Aponte APRN, COMPUTER NETWORKER) 2 g, Intravenous, Administer over 30 Min [...] mg (COMPLETED) 1032 (Given - Provider: Veronica Horta RN) 400 mg, Oral, ONCE, On Tue12/14/21 at 1015, For 1 dose, Pre-op dexamethasone (DECADRON) injection 8 mg (COMPLETED) 1533 (Given - Provider: Andressa Gastelum APRN, COMPUTER NETWORKER - Comment: per surgeon's request) 8 mg, Intravenous, ONCE, On Tue12/14/21 a t 1015, For 1 dose, To be given by COMPUTER NETWORKER in OR prior to induction. DO NOT give if patient is diabetic., Pre-op ketorolac (TORADOL) injection 15 mg (COMPLETED) 1748 (Given - Provider: Kailee Sullivan RN) 15 mg, Intravenous, ONCE, On Tue12/14/21 at 1715, For 1 dose, Pos t-op ondansetron (ZOFRAN) injection 4 mg 1715 (Due) 4 mg, Intravenous, ONCE, On Tue12/14/21 at 1715, For 1 dose, Post -op Continuous Medication Order 12/12/2021 12/13/2021 12/14/2021 lactated ringers infusion 1035 ( Started - Provider: Kimberly Quijano)1254 (Stopped - Provider: Yaya Aponte APRN, JULIAN - Comment: Switch to gravity)1255 (Restarted - Provider: Yaya Aponte APRN, JULIAN)1416 (Started - Provider: Yaya Aponte APRN, COMPUTER NETWORKER) Intravenous, at 30 mL/hr, CONTINUOUS, Starting on Tue12/14/21 at 1100, Pre-op 1644 (Anesthesia Fluid - Provider: Andressa Gastelum APRN, COMPUTER NETWORKER) PRN Medication Order 12/12/2021 12/13/2021 12/14/2021 dextrose [...] (SUBLIMAZE) injection 25-50 mcg 25-50 mcg, Intravenous, [id number], Other, 25 mcg for Mild to Moderate [...] Provider: Kasandra Horn RN) 25-50 mcg, Intravenous, [id number], Pain, Procedure, Starting on Tue12/14/21 at 1038, [...] (VERSED) injection 0.5-1 mg 0.5-1 mg, Intravenous, [id number], Anxiety , Starting on Tue12/14/21 at 0949, Until Tue12/14/21 at 2028, Maximum cumulative dose is 2 mg. TO BE GIVEN IN PACU ONLY., PACU/Recovery midazolam (VERSED) injection 1-2 mg 1142 (Given - Provider: Kasandra Horn, RN) 1-2 mg, Intravenous, [id number], Sedation, Anxiety, Procedure, Starting on Tue12/14/21 at [...] PACU/Recovery documented in this encounter Care Teams Net Application Support Specialist Relationship Specialty Start Date End Date Sonia Pérez PA-C PCP - General Physician Back Hanger 01/10/17 [address] [address] [place] [id number] documented as of this encounter
--- OUTSIDE RECORDS SUMMARY | 2022-04-22 13:59 | XMS_ITS | Encounter Summary ---
:1965 Author [facility] Address [address] [place] [address] Care Team Providers Name Role Phone Sonia Pérez PA-C Primary Care Provider Encounter Details Date Type Department Care Team Description 11/28/2021 Orders Only HIM DEPARTMENT Provider, Deysi torres [place] [address] Social History Tobacco Use Types Packs/Day Years [...] 06/15/2022 Appointment Orthopedics Vanna Ulloa MD [address] [place], [place] [address] (Wo rk) documented as of this encounter Procedures Procedure Name Priority Date/Time Associated Diagnosis Comme nts EKG 11/28/2021 Results for thi s procedure are in the resu lts section. documented in this encounter Results EKG (11/28/2021) Narrative This result has an attachment that is no t available. Interface Provider EKG documented in this encounter Visit Diagnoses Not on filedocumented in this encounter Care Teams Narrow Gauge Operator Relationship Specialty Start Date End Date Sonia Pérez PA-C PCP - General Physician Head Of Loss Prevention 01/10/[address] [place] [address] documented as of this encounter
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
--- OUTSIDE RECORDS SUMMARY | 2022-04-22 13:59 | XMS_ITS | Encounter Summary ---
:1965 Author Organization [facility] Address [address] [place] [address] Care Team Providers Name Role Phone Sonia Pérez PA-C Primary Care Provider Encounter Details Date Type Department Care Team Description 11/26/2021 Lab Visit [facility] Dislocation of left elbow, [address] [place] [address] Social History Tobacco Use Types Packs/Day Years Used Date Smoking Tobacco: Former Smokeless Tobacco: Never Comments: Quit smoking: Alcohol Use Standard Drinks/Week Comments Yes 0 (1 standard drink = 0.6 oz pure Alcoho lic Drinks/day: Amount:1-2 alcohol) drinks; Freq:2-4/Tue th ; Sex Assigned at Date Recorded Not on file documented as of this encounter Plan of Treatment Upcoming Encounters Date Type Specialty Care Team Description 06/15/2022 Appointment Orthopedics Vanna Ulloa MD [address] [facility] [address] [place], [place] [address] (Wo rk) documented as of this encounter Procedures Procedure Name Priority Date/Time Associated Diagnosis Comme nts 2019 NOVEL Routine 11/26/2021 10:32 Dislocation of left Resu lts for this CORONAVIRUS AM CDT elbow, initial procedure are in encounter the results section. documented in this encounter Results 2019 Novel Coronavirus (COVID-19) (11/26/2021 10:32 AM CDT) [facility] Method Time Signature COVID-19 Not Not 11/26/2021 [facility] Interpretation Detected Detected 11:53 PM CENTRAL LAB CDT Source Nares, left 11/26/2021 [facility] and right 11:53 PM CENTRAL LAB CDT Specimen Anatomical Collection Method Collection Time Receive d Time (Source) Location / / Volume Laterality Swab (Source ENTIRE ANTERIOR Non-blood 11/26/2021 10:32 11/27/19 22 Required) NARIS / Unknown Collection / AM CDT 10:32 AM CDT Unknown Narrative [facility] - 11/26/2021 11:53 PM CDT Test performed by [employer]eron[employer] Commission Director Mediated Amplification. TMA has been shown to be equivalent to commercial real-time PCR t ests. This test has been authorized by the FDA under Emergency Use Authorization (E UA) for use by authorized laboratories. Vanna Ulloa MD LAB_1 Performing Organization Address City/State/ZIP Code Phon e Number [facility] [address] [place] [address] documented in this encounter Visit Diagnoses Diagnosis Dislocation of left elbow, initial encou nter documented in this encounter Care Teams Operator Catalyst Concentration Relationship Specialty Start Date End Date Sonia Pérez PA-C PCP - General Physician Special Projects Coordinator 01/10/17 [address] [facility] [address] [place] [address] documented as of this encounter
--- OUTSIDE RECORDS SUMMARY | 2022-04-22 13:59 | XMS_ITS | Encounter Summary ---
:1965 Author Organization [employer] Address [address] [place] [address] Care Team Providers Name Role Phone Sonia Pérez PA-C Primary Care Provider Reason for Referral Procedure/Equipment (Routine) - Incomplete Specialty Diagnoses / Procedures Referred By Contact Refer red To Contact Diagnoses Closed fracture of distal end of left fibula with routine healing, unspecified fracture morphology, subsequent encounter Latanya Albrecht MD Procedures XR Ankle Lt 3 Views [address] [facility] [place] [address] Referral ID Status Reason Start Date Expiration Date Visits V isits Requested Authorized [id number] Incomplete 11/26/2021 02/25/2023 1 1 Reason for Visit Reason Comments Follow-up Left ankle/elbow Encounter Details Date Type Department Care Team Description 11/26/2021 Office Visit [facility] Latanya Albrecht, Closed fracture of Urgent Care distal end of left [address] [facility] [address] [facility] fibaracelis with routine [place] [address] [place] healing, unspecified [phone] fracture morphology, (Wo rk) subsequent encounter (Primary [...] Pressure - - Pulse - - Temperature 36.4 ??C (97.6 ??F) 11/26/2021 11:46 AM CDT Respiratory Rate - - Oxygen Saturation - - Inhaled Oxygen Concentration - - Weight - - Height - - Body Mass Index - - documented in this encounter Patient Instructions Patient InstructionsYossi Orozco ATC - 11/26/2021 11:[address] Latanya Albrecht MD Sports & Orthopaedic Medicine [facility] Nurse Line: [phone] Please contact Orthopedic Urgent Care line for all requests and questions. Medication Requests: Prescriptions are not filled on Weekends or on Weekdays after 3:00PM For all medication refills: Request a refill using [employer] or contact your Pharmacy To schedule appointments: [phone] Paperwork Requests: FMLA or disability paperwork can be faxed to: [phone] Medical records: [phone] (option 4) [employer] E-mail Address: [email or web address] Diagnosis: Left distal fibula fracture Plan: Continue in boot Ice Tylenol/ibuprofen as needed for pain Follow Up: Follow up in 4 weeks for recheck with Dr. Albrecht documented in this encounter Progress Notes Latanya Albrecht MD - 11/26/2021 12:00 AM CDT NAME: MARCELO BECK CSN: [id number] CLINIC NOTE DATE OF SERVICE: 11/26/2021 : 1965 The patient returns for followup of her left ankle fracture. She was last seen by myself on 11/17/2021 and has been in a boot without any significant changes. Pain is 3/10. Of note, the patient has a planned surgical fixation of her elbow with Dr. Ulloa, likely on 11/28/2021. OBJECTIVE: Left ankle has lateral ecchymosis and swelling. Distal neurovascular exam is intact. Left ankle x-rays, independently reviewed, show no significant change in position of the displaced distal fibular fracture. Ankle mortise is intact. ASSESSMENT: Left distal fibular fracture, in stable position, 2 weeks status post injury. PLAN: We will continue with her boot. She will weightbear as tolerated in the boot. She will follow up in 4 weeks with repeat left ankle x-rays to determine if further immobilization is necessary. We did discuss consideration of surgical versus nonsurgical care and the risks and benefits of each of these and she understood and wanted to continue with conservative treatment. LATANYA ALBRECHT MD SAB/AQS /[id number] documented in this encounter Plan of Treatment Upcoming Encounters Date Type Specialty Care Team Description 06/15/2022 Appointment Orthopedics Vanna Ulloa MD [address] [place] [address] (Wo rk) documented as of this encounter Results XR Ankle Lt 3 Views (11/26/2021 11:59 AM CDT) Anatomical Region Laterality Modality Lower Extremity, Ankle, Foot & Ankle Dig ital Radiography Specimen (Source) Anatomical Collection Method Collection Time Re ceived Time Location / / Volume Laterality 11/26/2021 11:48 AM CDT Impressions 11/26/2021 12:09 PM CDT COMPARISON: ??11/17/2021 FINDINGS: ??3 views obtained. Redemonstr ation of obliquely-oriented minimally- displaced fracturing through the distal fibula, in grossly unchanged appearance and alignment compared to prior examination; fracture line remains visualized. No ne w fractures identified. Osseous spurring off the plantar and posterior aspects of the calcaneus. Curvilinear osteophytosis at the dorsal aspect of the distal navicular at the naviculocuneiform articulation. Procedure Note Lobito Hills MD - 11/26/2021Format ting of this note might be different from the original. IMPRESSION COMPARISON: 11/17/2021 FINDINGS: 3 views obtained. Redemonstrat ion of obliquely-oriented minimally- displaced fracturing through the distal fibula, in grossly unchanged appearance and alignment compared to prior examination; fracture line remains visualized. No new fracture s identified. Osseous spurring off the plantar and posterior aspects of the calcaneus. Curvilinear osteophytosis at the dorsal aspect of the distal navicular at the naviculocuneiform articulation. Latanya Albrecht MD RAD GD documented in this encounter Visit Diagnoses Diagnosis Closed fracture of distal end of left fi bula with routine healing, unspecified fracture morphology, subsequent encounte r - Primary Closed fracture of distal end of left fi bula with routine healing, unspecified fracture morphology, subsequent encounte r documented in this encounter Care Teams Flight Surveyor Relationship Specialty Start Date End Date Sonia Pérez PA-C PCP - General Physician Mixer Tender 01/10/[address] [address] documented as of this encounter
--- OUTSIDE RECORDS SUMMARY | 2022-04-22 13:59 | XMS_ITS | Encounter Summary ---
:1965 Author Organization [facility] Address [address] [place] [address] Care Team Providers Name Role Phone Sonia Pérez PA-C Primary Care Provider Reason for Visit Procedure/Equipment (Routine) - Incomplete Specialty Diagnoses / Procedures Referred By Contact Refer red To Contact Procedures Provider, Foreign Images Foreign Image(S) XR Elbow Lt [address] [place] [address] Referral ID Status Reason Start Date Expiration Date Visits V isits Requested Authorized [id number] Incomplete 11/24/2021 02/23/2023 1 1 Encounter Details Date Type Department Care Team Description 11/24/2021 Ancillary Procedure [facility] PACS Provider, Foreign [address] [place] [address] [address] [place] [address] Social History Tobacco Use Types Packs/Day Years [...] 06/15/2022 Appointment Orthopedics aVnna Ulloa MD [address] [place], [place] [address] (Wo rk) documented as of this encounter Procedures Procedure Name Priority Date/Time Associated Diagnosis Comme nts FOREIGN IMAGE(S) XR Routine 11/24/2021 1:00 PM Re sults for this ELBOW LT CDT procedure are i n the results section. documented in this encounter Results Foreign Image(S) XR Elbow Lt (11/24/2021 1:00 PM CDT) Specimen (Source) Anatomical Location Collection Method / Collectio n Time Received Time / Laterality Volume Narrative POCT - 11/24/2021 1:08 PM CDT These outside images have been uploaded into PACS. If the results were provided, they will be located in the erwin mai's chart under the Media or Imaging tab. Foreign Images Provider RAD NON-REPORTABLES Performing Organization Address City/State/ZIP Code Phon e Number POCT documented in this encounter Visit Diagnoses Not on filedocumented in this encounter Care Teams Humane Officer Relationship Specialty Start Date End Date Sonia Pérez PA-C PCP - General Physician Teleprinter Installer 01/10/[address] [address] documented as of this encounter
--- OUTSIDE RECORDS SUMMARY | 2022-04-22 13:59 | XMS_ITS | Encounter Summary ---
:1965 Author Organization [facility] Address [address] [place] [address] Care Team Providers Name Role Phone Sonia Pérez PA-C Primary Care Provider Reason for Visit Procedure/Equipment (Routine) - Incomplete Specialty Diagnoses / Procedures Referred By Contact Refer red To Contact Diagnoses Postop check Tg Otero PA-C Procedures XR Elbow Lt 2 Views [address] [facility] [place], [place] [address] Referral ID Status Reason Start Date Expiration Date Visits V isits Requested Authorized [id number] Incomplete 12/11/2021 03/12/2023 1 1 Encounter Details Date Type Department Care Team Description 12/11/2021 Ancillary Procedure [facility] Tg Otero, Postop check [address] [employer] [place], [place] [address] 8[address] [facility] [phone] [place] [address] (Wo rk) Social History Tobacco Use Types [...] 06/15/2022 Appointment Orthopedics Vanna Ulloa MD [address] [facility] [place] [address] (Wo rk) documented as of this encounter Procedures Procedure Name Priority Date/Time Associated Diagnosis Comme nts XR ELBOW LT 2 VIEWS Routine 12/11/2021 11:04 AM Postop check R esults for this CDT procedure are i n the results section. documented in this encounter Results XR Elbow Lt 2 Views (12/11/2021 11:04 AM CDT) Anatomical Region Laterality Modality Upper Extremity, Elbow, Arm Digital Radi ography Specimen (Source) Anatomical Collection Method Collection Time Re ceived Time Location / / Volume Laterality 12/11/2021 11:04 AM CDT Impressions 12/11/2021 12:29 PM CDT COMPARISON: ??12/04/2021 FINDINGS: ??Two views were obtained. The re is apparent posterior and lateral subluxation of the radial head relative to the capitellum, which appears increased compared with the prior radiographs, thoug h improved compared with the prior CT. T his may be in part related to patient positioning. The comminuted and displaced fracture of the proximal ulna does not appear significantly changed from the prior radiographs. No new fracture is identif ied. Surgical tracts are again noted in the proximal ulna. Procedure Note Johann Bah MD - 12/11/2021Fo rmatting of this note might be different from the original. IMPRESSION COMPARISON: 12/04/2021 FINDINGS: Two views were obtained. There is apparent posterior and lateral subluxation of the radial head relative to the capitellum, which appears increased compared with the prior radiographs, though improved compared with the prior CT. This may be in part related to patient positioning. The comminuted and displaced fracture of the proximal ulna does not appear significantly changed from the prior radiographs. No new fracture is identified. Surgical tracts are again noted in the proximal ulna. Tg Otero PA-C RAD GD documented in this encounter Visit Diagnoses Diagnosis Postop check Follow-up examination, following unspeci fied surgery documented in this encounter Care Teams Warble Saw Operator Relationship Specialty Start Date End Date Sonia Pérez PA-C PCP - General Physician Supervisor Wet End 01/10/17 1601 [facility] [address] [place] [address] documented as of this encounter
--- OUTSIDE RECORDS SUMMARY | 2022-04-22 13:59 | XMS_ITS | Encounter Summary ---
:1965 Author Organization [facility] Address [address] [place] [address] Care Team Providers Name Role Phone Sonia Pérez PA-C Primary Care Provider Reason for Visit Procedure/Equipment (Routine) - Incomplete Specialty Diagnoses / Procedures Referred By Contact Refer red To Contact Diagnoses Closed fracture of distal end of left fibula with routine healing, unspecified fracture morphology, subsequent encounter Cain Albrecht MD Procedures XR Ankle Lt [address] [facility] [address] [place] [address] Referral ID Status Reason Start Date Expiration Date Visits V isits Requested Authorized [id number] Incomplete 11/26/2021 02/25/2023 1 1 Encounter Details Date Type Department Care Team Description 11/26/2021 Ancillary [facility] Cain Albrecht, Closed fracture of Procedure [address] distal end of left Drive [address] [facility] [address] eisenberg with routine [place], [place] healing, [address] unspecified [phone] fracture (Work) morphology, subsequen t encounter Social [...] 06/15/2022 Appointment Orthopedics Vanna Ulloa MD [address] [facility] [place] [address] (Wo rk) documented as of this encounter Procedures Procedure Name Priority Date/Time Associated Diagnosis Comme nts XR ANKLE LT 3 VIEWS Routine 11/26/2021 11:59 AM Closed fractur e of Results for this [...] the distal navicular at the naviculocuneiform articulation. Cain Albrecht MD RAD GD documented in this encounter Visit Diagnoses Diagnosis Closed fracture of distal end of left fi bula with routine healing, unspecified fracture morphology, subsequent encounte r documented in this encounter Care Teams Community Educator Relationship Specialty Start Date End Date Sonia Pérez PA-C PCP - General Physician Software Test And Validation Engineer 01/10/17 1601 [facility] [address] [place], [place] [address] documented as of this encounter
--- OUTSIDE RECORDS SUMMARY | 2022-04-22 13:59 | XMS_ITS | Encounter Summary ---
:1965 [facility] Address [address] [place] [address] Care Team Providers Name Role Phone oSnia Pérez PA-C Primary Care Provider Reason for Referral Procedure/Equipment (Routine) - Incomplete Specialty Diagnoses / Procedures Referred By Contact Refer red To Contact Diagnoses Postop check Tg Oteor PA-C Procedures XR Elbow Lt 2 Views 8[address] [facility] [place] [address] Referral ID Status Reason Start Date Expiration Date Visits V isits Requested Authorized [id number] Incomplete 12/11/2021 03/12/2023 1 1 Reason for Visit Reason Comments Post-Op Check Left elbow Encounter Details Date Type Department Care Team Description 12/11/2021 Office Visit [facility] Tg Otero Posto p check (Primary CENTER NAM Dx) [address] [facility] [address] [facility] [place] [address] [place] [phone] (Wo rk) Social History Tobacco Use Types [...] as of this encounter Patient Instructions Patient Lesley Spear LPN - 12/11/2021 11:00 AM CDT Thank you for Choosing [facility] for your health care visit today. Tg Otero PA-C Upper Extremity Physician Discovery Guide Tile Grinder: [phone] Medication Requests: Prescriptions are not filled on weekends or on weekdays after 3:00 PM. For all medication refills: Request a refill using [employer] or contact your pharmacy. What is Know Your Cost? Know Your Cost is a service for patients and patient/members to call and receive personalized cost information and estimates across our care group. The phone number is (COST) Tuesday - Tuesday 8 AM to 5 PM Advanced Imaging Scheduling: To schedule an MRI, Ultrasound, or Image guided injection at [facility] please call [phone]. To schedule an MRI or CT at a [facility] please call [phone]. [facility] Workers' Compensation [address] [place] [address] (Phone) Email: [email or web address] Release of Information: Radiology/Imaging [address] [place] [address] (Phone) Health Information Management [address] [place] [address] (Phone) [facility] documented in this encounter Progress Notes Tg Otero PA-C - 12/11/2021 11:00 AM CDT CHIEF COMPLAINT: S/P left elbow open reduction of the elbow joint, coronoid capsule fixation, alteral ulnar collateral ligament repair and loose body removal SUBJECTIVE: Liz is s/p left elbow open reduction of the elbow joint, coronoid capsule fixation, alteral ulnar collateral ligament repair and loose body removal on 11/28/[address] Ulloa. Liz is doing well today. She admits to 2-7/10 pain at the posterior elbow. Admits to a catching sensation. No numbness or tingling. Taking Dilaudid for pain relief. 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 She has not been working. OBJECTIVE: Exam finds a pleasant, healthy female. Exam of left elbow: Benign incision, no drainage, no erythema. Moderate swelling without ecchymosis.Sensation intact to light touch. Capillary refill less than 2 seconds. Full AROM of digits, except decreased thumb flexion. Tender to palpation of incision area. Elbow ROM not tested. IMAGING: Radiographs of the left elbow ordered and interpreted independently by me with assistance from Dr. Wolf. Three views show a comminuted, displaced coronoid fracture. The elbow appears to have subluxed again. ASSESSMENT: S/P left elbow open reduction of the elbow joint, coronoid capsule fixation, alteral ulnar collateral ligament repair and loose body removal, with continued instability PLAN: Discussed that unfortunately, her elbow reduction did not stay. Recommend further consultationwith Dr. Ulloa, who will likely need to do a revision procedure. Dr. Ulloa will call the patient latertoday with a plan. Refill of Dilaudid sent to pharmacy. documented in this encounter Plan of Treatment Upcoming Encounters Date Type Specialty Care Team Description 06/15/2022 Appointment Orthopedics Vanna Ulloa MD [address] [facility] [place] [address] (Wo rk) documented as of this encounter [...] again noted in the proximal ulna. Tg HALLMAN GD documented in this encounter Visit Diagnoses Diagnosis Postop check - Primary Follow-up examination, following unspeci fied surgery Postop check Follow-up examination, following unspeci fied surgery documented in this encounter Care Teams Heart Doctor Relationship Specialty Start Date End Date Sonia Pérez PA-C PCP - General Physician Discovery Guide 01/10/[address] [place] [address] documented as of this encounter
--- OUTSIDE RECORDS SUMMARY | 2022-04-22 13:59 | XMS_ITS | Encounter Summary ---
:1965 Author Organization [facility] Address [address] [place] [address] Care Team Providers Name Role Phone Sonia Pérez PA-C Primary Care Provider Reason for Visit Procedure/Equipment (Routine) - Incomplete Specialty Diagnoses / Procedures Referred By Contact Refer red To Contact Diagnoses Left elbow pain Vanna Ulloa MD Procedures XR Elbow Lt 1 View [address] [facility] [address] [place] [address] Referral ID Status Reason Start Date Expiration Date Visits V isits Requested Authorized [id number] Incomplete 11/24/2021 02/23/2023 1 1 Encounter Details Date Type Department Care Team Description 11/24/2021 Ancillary Procedure [facility] Vanna Ulloa MD Left elbow pain [address] [facility] [address] [facility] [address] [place] [address] [phone] (Wo rk) Social History Tobacco Use Types [...] MD [address] [facility] [place] [address] (Wo rk) documented as of this encounter Procedures Procedure Name Priority Date/Time Associated Diagnosis Comme nts XR ELBOW LT 1 VIEW Routine 11/24/2021 1:11 PM Left elbow pain Results for this CDT procedure are i n the results section. documented in this encounter Results XR Elbow Lt 1 View (11/24/2021 1:11 [...] arm documented in this encounter Care Teams Tree Girdler Relationship Specialty Start Date End Date Sonia Pérez PA-C PCP - General Physician Ski Technician 01/10/17 1601 [facility] [place] [address] [place] [address] documented as of this encounter
--- OUTSIDE RECORDS SUMMARY | 2022-04-22 13:59 | XMS_ITS | Encounter Summary ---
:1965 Author Organization [facility] Address [address] [place] [address] Care Team Providers Name Role Phone Sonia Pérez PA-C Primary Care Provider Reason for Visit Procedure/Equipment (Routine) - Incomplete Specialty Diagnoses / Procedures Referred By Contact Refer red To Contact Diagnoses Postop check Vanna Ulloa MD Procedures XR Elbow Lt 2 Views [address] [facility] [address] [place] [address] Referral ID Status Reason Start Date Expiration Date Visits V isits Requested Authorized [id number] Incomplete 12/04/2021 03/05/2023 1 1 Encounter Details Date Type Department Care Team Description 12/04/2021 Ancillary Procedure [facility] Vanna Ulloa MD Postop check [address] [facility] [address] [facility] [place] [address] [place] [phone] (Wo rk) Social History Tobacco Use Types [...] 06/15/2022 Appointment Orthopedics Vanna Ulloa MD [address] [facility] [place] [address] (Wo rk) Pending Results Name Type Priority Associated Diagnoses Date/Ti me XR Elbow Lt 2 Views Imaging New Routine Postop check 12/05/19 22 3:08 PM CDT documented as of this encounter Visit Diagnoses Diagnosis Postop check Follow-up examination, following unspeci fied surgery documented in this encounter Care Teams Studio Operations Engineer In Charge Relationship Specialty Start Date End Date Sonia Pérez PA-C PCP - General Physician Vice President Quality Improvement 01/10/17 1601 [facility] [place] [address] [place] [address] documented as of this encounter
--- OUTSIDE RECORDS SUMMARY | 2022-04-22 13:59 | XMS_ITS | Encounter Summary ---
:1965 Author Organization [facility] Address [address] [place] [address] Care Team Providers Name Role Phone Sonia Pérez PA-C Primary Care Provider Reason for Visit Reason Comments PAIN, POST OPERATIVE Encounter Details Date Type Department Care Team Description 11/29/2021 Nurse Triage Careline Unassigned, PAIN, POST OPERATIVE [address] Provider [place], [place] [address] [place] [address] [place] [address] Social History Tobacco Use Types Packs/Day Years Used Date Smoking Tobacco: Former Smokeless Tobacco: Never Comments: Quit smoking: Alcohol Use Standard Drinks/Week Comments Yes 0 (1 standard drink = 0.6 oz pure Alcoho lic Drinks/day: Amount:1-2 alcohol) drinks; Freq:2-/Tue ; Sex Assigned at Date Recorded Not on file documented as of this encounter Nursing Notes Jelani Irby RN - 11/29/2021 4:29 PM CDT Verified patient identity using three identifiers: Yes Spouse on the phone with the pt speaking in the background. Situation/Background (brief explanation of current symptoms/situation): pain, 3 hours ago pain pill,did not touch the pain. Surgery yesterday. Review 911 symptoms: Yes Reviewed with patient pertinent medical history(as it related to the call): Yes Reviewed with patient pertinent medications (as they relate to call): Yes Reviewed with patient pertinent allergies (as they relate to call): N/A Reason for Disposition [1] SEVERE post-op pain (e.g., excruciating, pain scale 8-10) AND [2] not controlled with pain medications Answer Assessment - Initial Assessment Questions 1. SYMPTOM: What's the main symptom you're concerned about? (e.g., pain, fever, vomiting) pain 2. ONSET: When did pain start? Since surgery 3. SURGERY: What surgery was performed? arm 4. DATE of SURGERY: When was surgery performed? yesterday 5. ANESTHESIA: What type of anesthesia did you have? (e.g., general, spinal, epidural, local) general 6. PAIN: Is there any pain? If Yes, ask: How bad is it? (Scale 1-10; or mild, moderate, severe) severe 7. FEVER: Do you have a fever? If Yes, ask: What is your temperature, how was it measured, and when did it start? no 8. VOMITING: Is there any vomiting? If yes, ask: How many times? no 9. BLEEDING: Is there any bleeding? If Yes, ask: How much? and Where? no 10. OTHER SYMPTOMS: Do you have any other symptoms? (e.g., drainage from wound, painful urination,constipation) no Protocols used: Post-Op Symptoms and Rkrfvoopy-[id number] Dislocation of left elbow. Surgery Date: 11/28/2021 Start Time: 709 OR: ASA: ASA 3 Procedure(s): OPEN REDUCTION INTERNAL FIXATION DISTAL HUMERUS FRACTURE Surgeon(s): Vanna Ulloa MD Diluadid 2-4 mg every 4 hours, Took 3 hours ago and not touching the pain. Started hurting as soon as the block wore off. Dr. Tai Booth Paged at 4:40 PM Consulted at 4:46 PM Instructions Call ortho surgery. Dr. Kuldeep Murguia Paged at 4:52 PM Consulted at 4:56 PM Instructions Can increase to every 3 hours on the dilaudid. Loosen the splint. If severe pain continues, pt should go to ER. Called back to pt with the above instructions. Reinforced the discharge instructions for positioning and icing. Also reminded that in addition to dilaudid pt can take ibuprofen or naproxen. Follow the instructions on the bottle. Reviewed home treatments as well as worsening/stat symptoms to watch for - and advised to call back if those symptoms occur. Encouraged pt to call back anytime with any questions, concerns, changes in symptoms. Pt/caller verbalized understanding of recommendations, denies further questions and is agreeable to plan. Ren Reyes RN Careline 5:08 PM 11/29/2021 Lily Varner - 11/29/2021 4:27 PM CDT Verified patient identity using three identifiers: Yes Caller's relationship to patient: Spouse/Significant Other Do you get your primary care at a HP or PN clinic: No/Other [facility] Select Member: No Are you calling about a positive COVID result: No Symptoms Describe the reason for call/symptoms (include location and duration if applicable): Patient had surgery yesterday and is having severe pain. Has taken 1 pain pill and tylenol and it isn't helping. Pain is in her elbow, 25/02. Plan:Caller transferred directly to CareLine nurse. documented in this encounter Plan of Treatment Upcoming Encounters Date Type Specialty Care Team Description 06/15/2022 Appointment Orthopedics Vanna Ulloa MD [address] [facility] [id number] (Wo rk) documented as of this encounter Visit Diagnoses Not on filedocumented in this encounter Care Teams Melting Supervisor Relationship Specialty Start Date End Date Sonia Pérez PA-C PCP - General Physician Vice President Of Consulting Services 01/10/17 [address] [facility] [address] [place] [address] documented as of this encounter
--- OUTSIDE RECORDS SUMMARY | 2022-04-22 13:59 | XMS_ITS | Encounter Summary ---
:1965 [facility] Address [address] [place] [address] Care Team Providers Name Role Phone Sonia Pérez PA-C Primary Care Provider Reason for Visit Reason Onset Date Comments COVID Questions 12/11/2021 Encounter Details Date Type Department Care Team Description 12/11/2021 Lab Visit [facility] Encounter [place] screening [place] [id number] [place] [address] (Primary Dx) [phone] Social History Tobacco Use Types Packs/Day Years Used Date Smoking Tobacco: Former Smokeless Tobacco: Never Comments: Quit smoking: Alcohol Use Standard Drinks/Week Comments Yes 0 (1 standard drink = 0.6 oz pure Alcoho lic Drinks/day: Amount:1-2 alcohol) drinks; Freq:2-4/Mon th ; Sex Assigned at Date Recorded Not on file documented as of this encounter Plan of Treatment Upcoming Encounters Date Type Specialty Care Team Description 06/15/2022 Appointment Orthopedics Vanna Ulloa MD [address] [facility] [place] [address] (Wo rk) documented as of this encounter Procedures Procedure Name Priority Date/Time Associated Comments Diagnosis 2019 NOVEL Routine 12/11/2021 3:48 PM Encounter for Results for this CORONAVIRUS CDT screening for other procedur e are in viral diseases the results section. documented in this encounter Results Asymptomatic - 2019 Novel Coronavirus (COVID-19) (12/11/2021 3:48 PM CDT) [facility] Method Time Signature COVID-19 Not Not 12/12/2021 [facility] Interpretation Detected Detected 3:41 AM CENTRAL LAB CDT Source Nares, left [facility] and right 3:41 AM [facility] CDT Specimen Anatomical Collection Method Collection Time Receive d Time (Source) Location / / Volume Laterality Swab (Source Non-blood 12/11/2021 3:48 PM 3:48 Required) Collection / CDT PM CDT Unknown Narrative [facility] - 12/12/2021 3:41 AM CDT Test performed by Aligning Checker Mediated Amplification. TMA has been shown to be equivalent to commercial real-time PCR t ests. This test has been authorized by the FDA under Emergency Use Authorization (E UA) for use by authorized laboratories. Chavez Diaz MD LAB_1 Performing Organization Address City/State/ZIP Code Phon e Number [facility] [address] [address] documented in this encounter Visit Diagnoses Diagnosis Encounter for screening for other viral diseases - Primary documented in this encounter Care Teams Herpetology Teacher Relationship Specialty Start Date End Date Sonia Pérez PA-C PCP - General Physician Nitro Worker 01/10/17 [address] [facility] [address] [place] [address] documented as of this encounter
--- OUTSIDE RECORDS SUMMARY | 2022-04-22 13:59 | XMS_ITS | Encounter Summary ---
:1965 Author Organization [facility] Address [address], [place] [address] Care Team Providers Name Role Phone Sonia Pérez PA-C Primary Care Provider Reason for Visit Reason Comments Pain Encounter Details Date Type Department Care Team Description 11/29/2021 Telephone [facility] Nurse Line Sonia Pérez PA-C Pain [phone] [facility] [address] [place] [id number] [place] [address] [phone] (Wo rk) Social History Tobacco Use Types Packs/Day Years Used Date Smoking Tobacco: Former Smokeless Tobacco: Never Comments: Quit smoking: Alcohol Use Standard Drinks/Week Comments Yes 0 (1 standard drink = 0.6 oz pure Alcoho lic Drinks/day: Amount:1-2 alcohol) drinks; Freq:2- ; Sex Assigned at Date Recorded Not on file documented as of this encounter Nursing Notes Monie Hernandez, DEBI - 11/29/2021 4:31 PM CDT Patient's Gene calling with concerns for uncontrolled post surgical pain after orthopedic surgery yesterday, 11.28.2021. Warm transferred Gene too [facility] for further assistance. No additional questions or concerns for PN NL at this time. documented in this encounter Plan of Treatment Upcoming Encounters Date Type Specialty Care Team Description 06/15/2022 Appointment Orthopedics Vanna Ulloa MD [address] [facility] [place] [id number] (Wo rk) documented as of this encounter Visit Diagnoses Not on filedocumented in this encounter Care Teams Athletic Monitor Relationship Specialty Start Date End Date Sonia Pérez PA-C PCP - General Physician Solder Technician 01/10/17 16[address] [facility] [address] [place] [id number] documented as of this encounter
--- OUTSIDE RECORDS SUMMARY | 2022-04-22 13:59 | XMS_ITS | Encounter Summary ---
:1965 Author Organization [facility] Address [address] [place] [address] Care Team Providers Name Role Phone Sonia Pérez PA-C Primary Care Provider Reason for Visit (Routine) - Incomplete Specialty Diagnoses / Procedures Referred By Contact Refer red To Contact Procedures Sergio Penny MD US Anesthesia Guided Block [address] [place], [place] [address] Referral ID Status Reason Start Date Expiration Date Visits V isits Requested Authorized [id number] Incomplete 11/28/2021 02/27/2023 1 1 Encounter Details Date Type Department Care Team Description 11/28/2021 Ancillary Procedure [facility] [address] [place] [address] Social History Tobacco Use Types Packs/Day Years [...] 06/15/2022 Appointment Orthopedics Vanna Ulloa MD [address] [place], [place] [address] (Wo rk) documented as of this encounter Procedures Procedure Name Priority Date/Time Associated Comments Diagnosis US ANESTHESIA GUIDED Routine 11/28/2021 6:34 AM R esults for this BLOCK CDT procedure are i n the results section. documented in this encounter Results US Anesthesia Guided Block (11/28/2021 6:34 AM CDT) Anatomical Region Laterality Modality Ultrasound Specimen (Source) Anatomical Location Collection Method / Collectio n Time Received Time / Laterality Volume Narrative 11/28/2021 6:34 AM CDT If an Anesthesia block was performed please see the Anesthesia encounter for documentation. ??This procedure was performed and interpreted by the performing provider. ?? Sergio Penny MD [facility] US documented in this encounter Visit Diagnoses Not on filedocumented in this encounter Care Teams Financial Recruiter Relationship Specialty Start Date End Date Sonia Pérez PA-C PCP - General Physician Drill Sharpener 01/10/17 16[address] [facility] [address] [place] [address] documented as of this encounter
--- OUTSIDE RECORDS SUMMARY | 2022-04-22 13:59 | XMS_ITS | Encounter Summary ---
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 Provider: Megan Escobar APRN, MUSIC WRITER) 25 mL/hr, Intravenous, CONTINUOUS, Start ing on 11/28/21 at 0600, Administer on all preop surgery patients, ages 12 and older, unless specified differently in the Protocol for Preop Initiation of IV fluids Order Set., Pre-op PRN Medication Order 11/26/2021 11/27/2021 11/28/2021 fentaNYL (SUBLIMAZE) injection 25-50 mcg 25-50 mcg, Intravenous, [id number], Other, 25 mcg for Mild to Moderate Pain (pain score 1-5), 50 mcg for Moderate to Severe Pain (pain score 6 and above) in the immediate postop period when faster on-set, short acting agent is desired., Startin g on 11/28/21 at 0619, Until 11/28/21 at 1656, Administer every 5 minutes as needed, to a maximum cumulative dose of 250 mcg. Call Anesthesiologist if addit ional dose needed For patients with a re gional, spinal, or local anesthetic, may give for anticipated pain as the anesthetic wears off. Use fentanyl initially for a short acting agent for treatment of a cute post-operative pain. May be used in conjunction with a longer acting agent if ordered for optimal pain control. Respiratory rate must be greater than 10 to administer medications., PACU/Recovery fentaNYL (SUBLIMAZE) injection 25-50 mcg 0651 (Given - Provider: Art Burroughs RN) 25-50 mcg, Intravenous, [id number], Pain, Procedure, Starting on 11/28/21 at 0619, Until 11/28/21 at 1656, For 2 doses, As directed by anesthesiologist, Pre-op HYDROcodone-acetaminophen (NORCO) 5-325 MG per tablet 1-2 Tablet 1230 (Given - Provider: Diana Price, DEBI) 1-2 Tablet, Oral, Q4H PRN, Other, Modera te Pain (pain score 5-7), Starting on 11/28/21 at 1145, Until 11/28/21 at 1656, Post-op HYDROmorphone (DILAUDID) injection 0.2-0.3 mg 0.2-0.3 mg, Intravenous, Q10MIN PRN, Georgette n, 0.2 mg IV for Mild to Moderate pain (pain score 1-5), 0.3 mg IV for Moderate to Severe pain (pain score 6 and above) in the immediate postop period when longer acting agent is desired., Starting on S at 11/28/21 at 0619, Until 11/28/21 at 1656, Maximum cumulative dose is 2 mg in PACU, call Anesthesiologist if additional dosage needed. For patients with a reg ional, spinal, or local anesthetic, may give for anticipated pain as the anesthetic wears off., PACU/Recovery ketorolac (TORADOL) injection 15 mg 1229 (Given - Provider: Diana Price, DEBI) 15 mg, Intravenous, Q6H PRN, Other, Mild Pain (pain score 1-4), Starting on 11/28/21 at 1145, Until 11/28/21 at 1656, For 3 days, Start at least 6 hours after celecoxib (CELEBREX) if given. Do not give to patients over age of 80. Give i f unable to take oral medications. Contraindicated for patients with CrCl less than 60 mL/min, OR, or history of GI bleed., Post-op lidocaine PF (XYLOCAINE) 1 % injection 0.1-0.3 mL 0.1-0.3 mL, Intradermal, PRN, Other, for additional IV starts, Starting on 11/28/21 at 0538, Pre-op meperidine (DEMEROL) injection 12.5 mg 12.5 mg, Intravenous, [id number], Shiverin g, Starting on 11/28/21 at 0619, Until 11/28/21 at 1656, For 2 doses, Maximum cumulative dose is 25 mg. Do not give to patients receiving MAO inhibitors (e. g. phenelzine (NARDIL), tranylcypromine (PARNATE), selegiline (ELDEPRYL))., PACU/Recovery midazolam (VERSED) injection 1-2 mg 0652 (Given - Provider: Art Burroughs RN) 1-2 mg, Intravenous, [id number], Sedation, Anxiety, Procedure, Starting on 11/28/21 at 0619, Until 11/28/21 at 1656, As directed by anesthesiologist MAX Dose 2mg, Pre-op naloxone (NARCAN) injection 0.08 mg 0.08 mg, Intravenous, PRN, Other, For re spiratory rate less than 8/minute or patient difficult to arouse, Starting on 11/28/21 at 0619, Until 11/28/21 at 1656, May repeat every 3 minutes or until patient is responsive to physical stimul ation and is able to take deep breaths. Maximum cumulative dose is 0.4 mg (1 mL). Continue to observe; if no response after administering total dose of 0.4 mg notify anesthesiologist STAT., PACU/Recovery naloxone (NARCAN) injection 0.4 mg 0.4 mg, Intravenous, ONCE PRN, Opioid Re versal, Starting on 11/28/21 at 0619, Until 11/28/21 at 1656, For 1 dose, For imminent respiratory arrest. Notify MD if naloxone is given., PACU/Recovery ondansetron (ZOFRAN) injection 4 mg 1130 (Given - Provider: Jazzy Arauz RN) 4 mg, Intravenous, Q4H PRN, Nausea, Vomi ting, Starting on 11/28/21 at 0619, Until 11/28/21 at 1656, If multiple medications are ordered for nausea or vomiting - administer in the following priorit y based on medications ordered, effectiv eness and availability: ondansetron (ZOFRAN) > prochlorperazine (COMPAZINE) > diphenhydrAMINE (BENADRYL) > hydrOXYzine HCl (VISTARIL)> ePHEDrine > scopolamine (TRANSDERM-SCOP)., PACU/Recovery sodium chloride 0.9% injection 10 mL 10 mL, Intravenous, PRN SEE ADMIN INSTRU CTIONS, Line Patency, Starting on 11/28/21 at 0546, Until 11/28/21 at 1656, Pre-op No Frequency Medication Order 11/26/2021 11/27/2021 11/28/2021 lactated ringers infusion 0631 ( Not Given - Provider: Art Burroughs, RN - Reason: Order discontinued) Starting on 11/28/21 at 0540, For 1 dose, Rosalinda Lara: cabin et override lidocaine PF (XYLOCAINE) 1 % injection - ADS Override Pull 0632 (Not Given - Provider: Art Burroughs RN - Reason: Patient/family refused) Starting on 11/28/21 at 0539, For 1 dose, Rosalinda Lara: cabin et override ropivacaine 0.5% (5 mg/mL) (NAROPIN) 5 M G/ML injection - ADS Override Pull (COMPLETED) 0652 (Override pull for Anesthesia - Provider: Sergio Penny MD - Comment: Filed by procedure note medication administration from procedure order [id number]) Starting on 11/28/21 at 0643, Until S at 11/28/21 at 1844, For 1 dose, Sergio Penny: cabinet override documented in this encounter Care Teams Chest Painting Leader Relationship Specialty Start Date End Date Sonia Pérez PA-C PCP - General Physician Binder Coverstitch 01/10/17 [address] [facility] [address] [place] [id number] documented as of this encounter
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
--- OUTSIDE RECORDS SUMMARY | 2022-04-22 13:59 | XMS_ITS | Encounter Summary ---
:1965 Author Organization [employer] Address [address] [place] [address] Care Team Providers Name Role Phone Sonia Pérez PA-C Primary Care Provider Reason for Visit Auth/Cert Specialty Diagnoses / Procedures Referred By Contact Refer red To Contact Diagnoses Dislocation of left elbow, initial encounter Procedures OPEN REDUCTION INTERNAL FIXATION LEFT ELBOW DISLOCATION Referral ID Status Reason Start Date Expiration Date Visits Requ ested Visits Authorized [id number] 1 1 Encounter Details Date Type Department Care Team Description 11/28/2021 Anesthesia Event [employer] Operating Heber Penny MD [address] [facility] [place] [address] [phone] Anesthesia Record Procedure Summary Procedure Name Responsible Anesthesia Start Anesthesia Stop Anesthesiologist Time Time OPEN REDUCTION Sergio Penny MD 11/28/21 0755 11/28/21 101 4 INTERNAL FIXATION of LEFT ELBOW, Coronoid repair, and repair of Lateral Ulnar Collateral Ligament (Left: Elbow) Events Date Time Event Comment 11/28/2021 0755 An Start 0755 An Start Data 0756 An Induction 0756 MD/DO Present 0802 An Intubation 0803 MD/DO Present 0832 An Tourn Inflated 0851 MD/DO Present 0919 MD/DO Present 0921 An Tourn Deflated 1004 MD/DO Present 1005 An Extubation Purposeful movem ent with spontaneous respirations and adequate air exchange. Suctioned and ETT removed. Transfe rred with oxygen to recovery. 1007 an stop data 1014 Care Handoff Note I discussed wi th [...] understanding of report Electr onically signed by Megan Escobar APRN, CRNA 1014 An Stop Care transferred . Name Total ropivacaine (NAROPIN) 0.5% (5 mg/mL) injection 30 mL fentaNYL injection (SUBLIMAZE) 100 mcg lidocaine 1% PF injection (XYLOCAINE) 50 mg propofol 10 mg/mL IV (DIPRIVAN) 913.26 mg ondansetron injection (ZOFRAN) 4 mg phenylephrine 100 mcg/mL in NaCl 0.9% syringe 1,350 mc g rocuronium injection (ZEMURON) 50 mg sugammadex injection 100mg/mL (BRIDION) 200 mg ceFAZolin (aka ANCEF) 2 g in dextrose 100 ml IVPB 2 g dexamethasone (DECADRON) injection 8 mg 8 mg lactated ringers infusion 1,000 mL dextrose 5% infusion 250 mL Agents Name O2 Air Sevoflurane () Identified Agent Name Blood No blood administrations on file. Lines, Drains, and Airways Type Details Placement Removal Peripheral IV Placement Date: 11/28/21 0630 by 12/12/21 1456 b y , 11/28/21; Placement Art Burroughs RN Discontin ue Time: 629; Inserted by?: RN (per dm rn); Size (Gauge): 20 G; Orientation: Right; Site Prep: ChloraPrep; Local Anesthetic: Lidocaine 1%; Blood draw with insertion?: no; Patient Tolerance: Tolerated well; Removal Date: 12/12/21; Removal Time: 1456 ETT Placement Date: 11/28/21 0802 by 11/28/21 1005 b y 11/28/21; Placement Megan Escobar Thibert, M olly J, Time: 0802; Placed JULIAN SHORE APRN, CRNA By: DISTRIBUTION CENTER MANAGER; Induction Type: Pre-O2, IV; Masking: Easy (oral airway); ETT Type: ETT; Orientation: Right; Size (mm): 7.0; Depth Secured (cm): 23 cm; Cuffed: Cuffed; Intubation Method: DL; Cormack_Lehane Glottic Grade: Grade 1; Glottic View: Cords Open, Cords Clear; Blade: Armstrong; Blade Size: 2; Insertion attempts: 1; Difficulty: Atraumatic; Adjunct Equipment: Stylet; Placement Verification: auscultation, Positive EtCO2, BBSE, capnometry; Teeth and Lips Unchanged: Unchanged; Removal Date: 11/28/21; Removal Time: 1005 Incision/Surgical Site 11/28/21; 0840; #1; 11/28/21 0840 by 11/15 1456 by Lda, No; Elbow; Left; Megan Ruiz Discontinue 12/12/21; 1456 documented in this encounter Social History Tobacco Use Types Packs/Day Years Used Date Smoking Tobacco: Former Smokeless Tobacco: Never Comments: Quit smoking: Alcohol Use Standard Drinks/Week Comments Yes 0 (1 standard drink = 0.6 oz pure Alcoho lic Drinks/day: Amount:1-2 alcohol) drinks; Freq:- ; Sex Assigned at Date Recorded Not on file documented as of this encounter Progress Notes Megan Escobar APRN, CRNA - 01/05/2022 12:30 PM CDT Addendum created 01/05/22 1230 by Megan Escobar APRN, CRNA Intraprocedure Event edited documented in this encounter Miscellaneous Notes Anesthesia Postprocedure Evaluation - Sergio Penny MD - 11/28/2021 10:29 AM CDT [facility] Anesthesia Post-op Note Patient: Liz Phelps Post-Op Diagnosis: Dislocation of left elbow, initial encounter Procedure Performed: Procedure(s): Left - OPEN REDUCTION INTERNAL FIXATION of LEFT ELBOW, Coronoid repair, and repair of LUCL - Wound Class: 1 CLEAN Anesthesia Type: General Post-op vital signs: Vitals Value Taken Time BP 109/61 11/28/21 1016 Temp 36.4 ??C (97.5 ??F) 11/28/21 1014 Pulse 92 11/28/21 1029 Resp 19 11/28/21 1029 SpO2 93 % 11/28/21 1029 Vitals shown include unvalidated device data. Pain Score: Presence Of Pain: complains of pain/discomfort Preferred Pain Scale: number (Numeric Rating Pain Scale) Pain Rating (0-10): Rest: 6 Pain Rating (0- 10): Activity: 8 Post-op assessment: No anesthesia complication. Patient location: PACU Airway Status: Patent Cardiovascular function: Satisfactory Hydration status: Satisfactory PONV: None Level of Consciousness: Awake Fully Participates Postop Assessment: Patient tolerated procedure well. Electronically signed by: Sergio Penny MD 11/28/2021 10:29 AM Anesthesia Procedure Notes - Sergio Penny MD - 11/28/2021 6:52 AM CDT Associated Order(s): Peripheral Block Peripheral Block Performed by: Sergio Penny MD Authorized by: Sergio Penny MD Patient Location: Preop Start Time: 11/28/2021 6:49 AM End Time: 11/28/2021 6:52 AM Performed by: Anesthesiologist Body area of block: Upper Extremity Upper Extremity Blocks: Supraclavicular Laterality: Left Correct Position: Yes Correct Patient: Yes Correct Site: Yes Correct Procedure: Yes Correct Laterality: Yes Site Marked: Yes Checklist: risks and benefits discussed, patient agrees to proceed, IV checked, anesthesia consent, monitors/equipment checked and surgical consent Prep: Chloraprep, Hat and Sterile gloves Monitoring: Blood pressure, electronic device monitor and continuous pulse oximetry Patient Position: Sitting [...] Catheter placed?: No Complication: None Procedure Comments: Signed by Sergio Penny MD Ropivacaine administered: Ropivacaine 0.5% (5 mg/mL) 5 MG/ML - Regional Nerve Block 30 mL - 11/28/2021 6:52:00 AM Anesthesia Preprocedure Evaluation - Sergio Penny MD - 11/28/2021 6:37 AM CDT [facility] Anesthesia Pre-op Evaluation Procedure: OPEN REDUCTION INTERNAL FIXATION LEFT ELBOW DISLOCATION, Left HPI: 56 y.o. old female with Dislocation of left elbow, initial encounter Last Fluid Intake Date: 11/27/21 Last Food Intake Date: 11/27/21 Allergies Allergen Reactions ??? Exenatide Other, see comments PN: local site reaction of skin breakdown, severe itching, and pain. ??? Atorvastatin Other reaction(s): Myalgia ??? Dulaglutide Gastrointestinal and Nausea Past Medical History: Diagnosis Date ??? Anxiety (HRC) ??? Cataract 06/09/2020 both eyes ??? Controlled type 2 diabetes mellitus without complication, with long-term current use of insulin (HRC) ??? Depression (HRC) ??? Hypertension (HRC) ??? Irritable bowel syndrome [...] WISDOM TEETH EXTRACTION Outpatient Medications as of 11/28/2021 Medication Sig ??? ACCU-CHEK FARTUN PLUS test strip Use to test three times daily before meals. Code E11.9 ??? ALBUterol sulfate HFA 108 (90 Base) MCG/ACT inhaler Inhale 1-2 Puffs. ??? aspirin EC 81 MG enteric coated tablet Take 1 tablet by mouth daily (every 24 hours). ??? blood glucose test strip Use 1 strip as instructed 3 times daily. ??? Rakyksp-Kobsskfrs-Ltvd 333-133-5 MG Take 1 Tablet by mouth. ??? Coenzyme Q10 100 MG Take 100 mg by mouth. ??? cyclobenzaprine (FLEXERIL) 5 MG tablet Take 1 tablet by mouth 3 times daily as needed for Musclespasms. ??? desvenlafaxine (PRISTIQ) 50 MG 24 hour release tablet Take 100 mg by mouth. ??? dulaglutide (TRULICITY) 0.75 MG/0.5ML injection pen Inject 1 Pen subcutaneously once a week. (Patient not taking: No sig reported) ??? DULoxetine (CYMBALTA) 30 MG capsule Take [...] MG capsule daily (every 24 hours). ??? gflql-0-davy ethyl esters (LOVAZA) 1 g capsule Take [...] SOPN INJECT 0.75MG SUBCUTANEOUSLY ONCE A WEEK (Patient not taking: No sig reported) Facility-Administered Medications as of 11/28/2021 Medication Dose Route Frequency ??? ceFAZolin (aka ANCEF) 2 g in dextrose 100 ml IVPB 2 g Intravenous Once ??? [COMPLETED] celecoxib (CeleBREX) capsule 200 mg 200 mg Oral Once ??? dexamethasone (DECADRON) injection 8 mg 8 mg Intravenous Once ??? fentaNYL (SUBLIMAZE) injection 25-50 mcg 25-50 mcg Intravenous Q5MIN PRN ??? fentaNYL (SUBLIMAZE) injection 25-50 mcg 25-50 mcg Intravenous Q5MIN PRN ??? HYDROmorphone (DILAUDID) injection 0.2-0.3 mg 0.2-0.3 mg Intravenous Q10MIN PRN ??? lactated ringers infusion 25 mL/hr Intravenous Continuous ??? lactated ringers infusion ??? lidocaine PF (XYLOCAINE) 1 % injection - ADS Override Pull ??? lidocaine PF (XYLOCAINE) 1 % injection 0.1-0.3 mL 0.1-0.3 mL Intradermal Once And ??? lidocaine PF (XYLOCAINE) 1 % injection 0.1-0.3 mL 0.1-0.3 mL Intradermal PRN ??? meperidine (DEMEROL) injection 12.5 mg 12.5 mg Intravenous Q5MIN PRN ??? midazolam (VERSED) injection 1-2 mg 1-2 mg Intravenous Q5MIN PRN ??? naloxone (NARCAN) injection 0.08 mg 0.08 mg Intravenous PRN ??? naloxone (NARCAN) injection 0.4 mg 0.4 mg Intravenous ONCE PRN ??? ondansetron (ZOFRAN) injection 4 mg 4 mg Intravenous Q4H PRN ??? sodium chloride 0.9% injection 10 mL 10 mL Intravenous PRN See Admin Labs: Lab Results Component Value Date/Time SODIUM [...] INR Reason a test was not performed: Tubal. Blood Bank: N/O BB ANTIBODY SCREEN (no units) Date Value 01/14/1998 NEG EKG: No results found for this or any previous visit. Physical Exam: BP (!) 142/100 Pulse 83 Temp (!) 36 ??C (96.8 ??F) Resp 16 Ht 5' 6 Wt 111.1 kg (245 lb) SpO2 98% BMI 39.54 kg/m?? Assessment/Plan: Review of Systems [...] > 40 cm?: No Previous airway assessment: No prior intubations. Current airway assessment:Normal Dentition: Age appropriate. Cardiac Exam: Regular rate and rhythm. Respiratory Exam: Breath sounds clear to auscultation Assessment ASA Status: 3 . Plan Anesthesia type: Peripheral Nerve Block Induction: Propofol Maintenance: PONV Risk Score Adult: 2 PONV Prophylaxis (planned): Ondansetron Anesthetic plan, risks, benefits and alternatives discussed with: Patient or Turf Sales Person agree tothe anesthesia treatment plan and Patient. H&P Reviewed and Patient examined, no change observed IV access Antibiotics per surgery Electronically signed by: Sergio Penny MD 11/28/2021 6:37 AM documented in this encounter Plan of Treatment Upcoming Encounters Date Type Specialty Care Team Description 06/15/2022 Appointment Orthopedics Vanna Ulloa MD [address] [place] [address] (Wo rk) documented as of this encounter Procedures Procedure Name Priority Date/Time Associated Diagnosis Comme nts PERIPHERAL BLOCK Routine 11/28/2021 6:52 AM Resul ts for this CDT procedure are i n the results section. documented in this encounter Results PERIPHERAL BLOCK (11/28/2021 6:52 AM CDT) Narrative EXTERNAL RESULTS - 11/28/2021 6:52 AM CD T Sergio Penny MD ? 11/28/2021 ??6:52 AM Peripheral Block Performed by: Sergio Penny MD Authorized by: Sergio Penny MD Patient Location: ??Preop Start Time: ??11/28/2021 6:49 AM End Time: ??11/28/2021 6:52 AM Performed by: ??Anesthesiologist Body area of block: ??Upper Extremity Upper Extremity Blocks: Supraclavicular ?? Laterality: ??Left Correct Position: ??Yes Correct Patient: ??Yes Correct Site: ??Yes Correct Procedure: ??Yes Correct Laterality: ??Yes Site Marked: ??Yes Checklist: risks and benefits discussed, patient agrees to proceed, IV checked, anesthesia consent, monitors/eq uipment checked and surgical consent ?? Prep: ??Chloraprep, Hat and Sterile glov es Monitoring: ??Blood pressure, cardiac mo nitor and [...] placed?: No ?? Complication: ??None Procedure Comments: ?? Signed by Sergio Penny MD Ropivacaine administered: ??Ropivacaine 0.5% (5 mg/mL) 5 MG/ML - Regional Nerve Block 30 mL - 11/28/2021 6:52:00 AM Sergio Penny MD ANESTHESIA/AR Performing Organization Address City/State/ZIP Code Phon e Number EXTERNAL RESULTS documented in this encounter Visit Diagnoses Not on filedocumented in this encounter Administered Medications Inactive Administered Medications - up to 3 most recent administrations Medication Order MAR Action Action Date Dose Rate Site ceFAZolin (aka ANCEF) 2 g in Given 11/28/2021 8:19 AM CDT 2 g dextrose 100 ml IVPB 2 g, Intravenous, Administer over 30 Minutes, ONCE, On 11/28/21 at 0615, For 1 dose, Infuse within 60 minutes prior to incision; Re-dose 1 gram IV every 4 hours after initial dose until incision closed., Pre-op dexamethasone (DECADRON) injection 8 mg Given 11/28/2021 8:22 AM CDT 8 mg 8 mg, Intravenous, ONCE, On 11/28/21 at 0615, For 1 dose, To be given by DISTRIBUTION CENTER MANAGER in OR prior to induction. DO NOT give if patient is diabetic., Pre-op dextrose 5 % infusion Started 11/28/2021 8:25 AM CDT Starting on 11/28/21 at 0825 fentaNYL (SUBLIMAZE) injection Given 11/28/2021 7:56 AM CDT 100 mcg Intravenous, Starting on 11/28/21 at 0756, Until 11/28/21 at 1014 lactated ringers infusion Started 11/28/2021 9:10 AM [...] mL/hr lidocaine PF (XYLOCAINE) 1 % injection Given 11/28/2021 7:56 AM CDT 50 mg Intravenous, Starting on 11/28/21 at 0756 ondansetron (ZOFRAN) injection Given 11/28/2021 9:25 AM CDT 4 mg Intravenous, Starting on 11/28/21 at 0925, Until 11/28/21 at 1014 phenylephrine-NaCl 0.9% (NEIL-SYNEPHRINE) Given 11/28/2021 9:43 A M CDT 100 mcg injection Intravenous, Starting on 11/28/21 at 0816, Until 11/28/21 at 1014 Given 11/28/2021 9:36 AM CDT 100 mcg Given 11/28/2021 9:23 AM CDT 100 mcg propofol (DIPRIVAN) 10 mg/mL Started 11/28/2021 7:57 150 mcg/kg/mi n 99.99 mL/hr injection AM CDT Intravenous, Starting on 11/28/21 at 0756, Until 11/28/21 at 1014 Given 11/28/2021 7:56 AM CDT 180 mg rocuronium (ZEMURON) injection Given 11/28/2021 7:56 AM CDT 50 mg Intravenous, Starting on 11/28/21 at 0756, Until 11/28/21 at 1014 ropivacaine 0.5% (5 mg/mL) (NAROPIN) 5 MG/ML Given 6:52 AM CDT 30 mL injection Regional Nerve Block, Starting on 11/28/21 at 0652, Until 11/28/21 at 0652 sugammadex (BRIDION) injection Given 11/28/2021 9:59 AM CDT 200 mg Intravenous, Starting on 11/28/21 at 0959, Until 11/28/21 at 1014 documented in this encounter Care Teams Button Riveter Relationship Specialty Start Date End Date Sonia Pérez PA-C PCP - General Physician Music Therapy Teacher 01/10/17 [address] [facility] [address] [place] [id number] documented as of this encounter
--- OUTSIDE RECORDS SUMMARY | 2022-04-22 13:59 | XMS_ITS | Encounter Summary ---
:1965 Author [facility] Address [address] [place] [address] Care Team Providers Name Role Phone Sonia Pérez PA-C Primary Care Provider Reason for Referral Procedure/Equipment (Routine) - Incomplete Specialty Diagnoses / Procedures Referred By Contact Refer red To Contact Diagnoses Surgery, elective Vanna Ulloa MD Procedures CLYDE Fluoroscopy Up To 1 Hour [address] [facility] [place], [place] [address] Referral ID Status Reason Start Date Expiration Date Visits V isits Requested Authorized [id number] Incomplete 12/11/2021 03/12/2023 1 1 Encounter Details Date Type Department Care Team Description 12/11/2021 Notes/Orders [facility] Vanna Ulloa MD Surgery, elective CENTER [address] [place] [address] (Primary Dx) [address] [place], [place] [phone] (Wo rk) Social History Tobacco Use Types [...] 06/15/2022 Appointment Orthopedics Vanna Ulloa MD [address] [facility] [place] [address] (Wo rk) documented as of this encounter [...] states documented in this encounter Care Teams Store Mgr Relationship Specialty Start Date End Date Sonia Pérez PA-C PCP - General Physician Equipment Technician 01/10/17 [address] [facility] [address] [place], [place] [address] documented as of this encounter
--- OUTSIDE RECORDS SUMMARY | 2022-04-22 13:59 | XMS_ITS | Encounter Summary ---
:1965 Author [facility] Address [address] [place] [address] Care Team Providers Name Role Phone Sonia Pérez PA-C Primary Care Provider Reason for Visit Reason Comments Elbow Problem Encounter Details Date Type Department Care Team Description 12/11/2021 Office Visit [facility] Imer Soto, Aftercare following [address] [employer] [facility] OTR/L surgery (Primary Dx) [place], [place] [address] [address] [facility] [phone] [place] [address] (Wo rk) Social History Tobacco Use Types Packs/Day Years Used Date Smoking Tobacco: Former Smokeless Tobacco: Never Comments: Quit smoking: Alcohol Use Standard Drinks/Week Comments Yes 0 (1 standard drink = 0.6 oz pure Alcoho lic Drinks/day: Amount:1-2 alcohol) drinks; Freq:2-4/Tue ; Sex Assigned at Date Recorded Not on file documented as of this encounter Progress Notes Imer Soto OTR/Gina - 12/11/2021 11:30 AM CDT Pt's visit here in therapy was canceled prior to its start today. No service delivery ANAY Falcon/Gina #[id number] documented in this encounter Plan of Treatment Upcoming Encounters Date Type Specialty Care Team Description 06/15/2022 Appointment Orthopedics Vanna Ulloa MD [address] [facility] [place] [phone] (Wo rk) documented as of this encounter Visit Diagnoses Diagnosis Aftercare following surgery - Primary Encounter for other specified aftercare documented in this encounter Care Teams Analytical Sciences Director Relationship Specialty Start Date End Date Sonia Pérez PA-C PCP - General Physician Geochemical Manager 01/10/17 [address] [facility] [address] [place] [id number] documented as of this encounter
--- OUTSIDE RECORDS SUMMARY | 2022-04-22 13:59 | XMS_ITS | Encounter Summary ---
:1965 Author Organization [facility] Address [address] [place] [address] Care Team Providers Name Role Phone Sonia Pérez PA-C Primary Care Provider Reason for Visit Auth/Cert Specialty Diagnoses / Procedures Referred By Contact Refer red To Contact Diagnoses Dislocation of left elbow, initial encounter Procedures OPEN REDUCTION INTERNAL FIXATION LEFT ELBOW DISLOCATION Referral ID Status Reason Start Date Expiration Date Visits Requ ested Visits Authorized [id number] 1 1 Encounter Details Date Type Department Care Team Description 11/28/2021 Surgery Mormon[facility] Operating Staci Ulloa MD OPEN REDUCTION INTERNAL Room [address] FIXATION of LEFT ELBOW, [address] [place] [address] Coronoid repair, and [place], [place] repair of Lateral Ulnar [address] Collateral Ligament [phone] Social History Tobacco Use Types Packs/Day Years [...] Sign Reading Time Taken Comments Blood Pressure 110/73 11/28/2021 11:15 AM CDT Pulse 82 11/28/2021 11:15 AM CDT Temperature 37 ??C (98.6 ??F) 11/28/2021 10:15 AM CDT Respiratory Rate 15 11/28/2021 11:15 AM CDT Oxygen Saturation 93% 11/28/2021 11:15 AM CDT Inhaled Oxygen Concentration - - [...] 3 times Diabetes type 2, daily. uncontrolled Tdpautd-Qiaszdjsu-Ccpi Take 1 Tablet by 0 [phone] [...] 0 04/25/2009 (MAXEPA,FISHOIL) 1000 hours). MG capsule lfmzt-3-icka ethyl Take 1 g by mouth. 0 [...] 12:00 AM CDT NAME: LIZ BECK CSN: [id number] OPERATIVE REPORT DATE OF SURGERY: 11/28/2021 : 1965 SURGEON: VANNA ULLOA MD PREOPERATIVE DIAGNOSIS: Left unstable elbow joint. POSTOPERATIVE DIAGNOSES: 1.Left coronoid fracture. 2.Left lateral ulnar collateral ligament tear. PROCEDURES: 1.Open reduction of left elbow joint. 2.Coronoid fixation of the capsule. 3.Repair of lateral ulnar collateral ligament. 4.Removal of 2 cartilaginous loose bodies from the elbow joint. MEDICAL SECRETARY TEACHER: Carlos Castle, sales service assistant. ESTIMATED BLOOD LOSS: 20 mL. POSITION: [...] the olecranon running laterally around it and longterm upthe brachium and 3rd [address] way [...] 130 of flexion. She should wear it horse race timer except for shower and she may take [...] on discontinuing the brace. VANNA ULLOA MD DCReema/RICKIE /[id number] documented in this encounter OR Notes H&P [...] 06/15/2022 Appointment Orthopedics Vanna Ulloa MD [address] [facility] [place] [address] (Wo rk) Scheduled Referrals Name Type Priority [...] Whole Blood POCT (11/28/2021 1:12 PM CDT) Patholo gist Method Time Signature Glucose, Whole 195 (H) 70 - 180 11/28/2021 [facility] Blood mg/dL 1:13 PM CDT LABORATORY Performing MT 4E/8W 11/28/2021 [facility] Location 1:13 PM CDT LABORATORY Specimen Anatomical Collection Method Collection Time Receive d Time (Source) Location / / Volume Laterality Blood 11/28/2021 1:12 PM 2 1:13 CDT PM CDT Vanna Ulloa MD LAB_1 Performing Organization Address City/[facility] Code Phon e Number [facility] [address] [place] [address] Glucose, Whole Blood POCT (11/28/2021 10:16 AM CDT) [facility] Signature Glucose, Whole 140 70 - 180 11/28/2021 [facility] Blood mg/dL 10:18 AM CDT LABORATORY Performing MT PACU 11/28/2021 [facility] Location 10:18 AM CDT LABORATORY Specimen Anatomical Collection Method Collection Time Receive d Time (Source) Location / / Volume Laterality Blood 11/28/2021 10:16 11/28/2021 AM CDT 10:18 AM CDT Vanna Ulloa MD LAB_1 Performing Organization Address [facility] Phon e Number [facility] [address] [place] [address] FL C Arm (11/28/2021 9:40 AM CDT) [...] the performing provider. ?? Sergio Penny MD RAD US ECG 12 Lead Inpatient (11/28/2021 6:30 AM CDT) P athologist Signature Ventricular Rate 78 BPM MUSE GHP Atrial Rate 78 BPM MUSE GHP P-R Interval 152 ms MUSE GHP QRS Duration 88 ms MUSE GHP QT 384 ms MUSE GHP QTc 437 ms MUSE GHP P [place] 10 degrees MUSE GHP R [place] 54 degrees MUSE GHP T [place] 19 degrees MUSE GHP Specimen (Source) Anatomical [...] e Number MUSE GHP [address] [place] [address] Glucose, Whole Blood POCT (11/28/2021 6:02 AM CDT) Analysis Performed At Patho logist Time Signature Glucose, Whole 109 70 - 180 11/28/2021 [facility] Blood mg/dL 6:03 AM CDT LABORATORY Performing MT SURG 11/28/2021 [facility] Location 6:03 AM CDT LABORATORY Specimen Anatomical Collection Method Collection Time Receive d Time (Source) Location / / Volume Laterality Blood 11/28/2021 6:02 AM 6:03 CDT AM CDT Vanna Ulloa MD LAB_1 Performing Organization Address City/State/ZIP Code Phon e Number [facility] [address] [place] [address] documented in this encounter Visit Diagnoses Diagnosis Dislocation of left elbow - Primary Dislocation of left elbow, subsequent en counter Dislocation of left elbow, initial encou nter documented in this encounter Admitting Diagnoses Diagnosis [...] NOT give if history of GI bleed; PA or sulfa allergy., Pre-op fentaNYL (SUBLIMAZE) injection 25-50 mcg 25-50 mcg, Intravenous, [id number], Other, 25 mcg for Mi ld to [...] AM CDT 50 mcg 25-50 mcg, Intravenous, [id number], Pain, Procedure, Starting on 11/28/21 at 0619, [...] patients with CrCl less than 60 mL/min, PA, or history of GI bleed., Post-op lactated [...] (DEMEROL) injection 12.5 mg 12.5 mg, Intravenous, [id number], Shiverin g, Starting on 11/28/21 at 0619, Until 11/28/21 at 1656, For 2 doses, Maximu m cumulative dose is 25 mg. Do not give to patients receiving MAO inhibitors (e.g. phenelzine (NA RDIL), tranylcypromine (PARNATE), selegiline (ELDEPRYL))., PACU/Recovery midazolam (VERSED) injection 1-2 mg Given 11/28/2021 6:52 AM CDT 1 mg 1-2 mg, Intravenous, [id number], Sedation, Anxiety, Procedure, Starting on 11/28/21 at 0619, Until 11/28/21 at 1656, As directed by anesthesiologist MAX Dose 2mg, Pre-op naloxone (NARCAN) injection 0.08 mg 0.08 mg, Intravenous, PRN, Other, For respiratory rate less than 8/minute or patient difficult to arouse, Starting on 11/28/21 at 0619, Until 11/28/21 at 165, May repeat every 3 minutes or until [...] 08 (Given - Provider: Megan Escobar APRN, HOSTEL PARENT) 2 g, Intravenous, Administer over 30 Min [...] NOT give if history of GI bleed; PA or sulfa allergy., Pre-op dexamethasone (DECADRON) injection 8 mg (COMPLETED) 821 (Given - Provider: Megan Escobar APRN, JULIAN) 8 mg, Intravenous, ONCE, On 11/28/21 at 0615, For 1 dose, To be given by HOSTEL PARENT in OR prior to induction. DO NOT [...] from Pre-Op - Provider: Megan Escobar APRN, JULIAN)0909 (Stopped - Provider: Megan Escobar APRN, CRNA - Comment: Switch to gravity)0910 (Started - Provider: Megan Escobar APRN, JULIAN) 25 mL/hr, Intravenous, CONTINUOUS, Start ing on 11/28/21 at 0600, Administer on all preop surgery patients, ages 12 and older, unless specified differently in the Protocol for Preop Initiation of IV fluids Order Set., Pre-op PRN Medication Order 11/26/2021 11/27/2021 11/28/2021 fentaNYL (SUBLIMAZE) injection 25-50 mcg 25-50 mcg, Intravenous, [id number], Other, 25 mcg for Mild to Moderate [...] Provider: Art Burroughs RN) 25-50 mcg, Intravenous, [id number], Pain, Procedure, Starting on 11/28/21 at 0619, Until 11/28/21 at 1656, For 2 doses, As directed by anesthesiologist, Pre-op HYDROcodone-acetaminophen (NORCO) 5-325 MG per tablet 1-2 Tablet 1230 (Given - Provider: Diana Price RN) 1-2 Tablet, Oral, Q4H PRN, Other, Modera [...] 15 mg 1229 (Given - Provider: Diana Price RN) 15 mg, Intravenous, Q6H PRN, Other, Mild Pain (pain score 1-4), Starting on 11/28/21 at 1145, Until 11/28/21 at 1656, For 3 days, Start at least 6 hours after celecoxib (CELEBREX) if given. Do not give to patients over age of 80. Give i f unable to take oral medications. Contraindicated for patients with CrCl less than 60 mL/min, PA, or history of GI bleed., Post-op lidocaine PF (XYLOCAINE) 1 % injection 0.1-0.3 mL 0.1-0.3 mL, Intradermal, PRN, Other, for additional IV starts, Starting on 11/28/21 at 0538, Pre-op meperidine (DEMEROL) injection 12.5 mg 12.5 mg, Intravenous, [id number], Shiverin g, Starting on 11/28/21 at 0619, Until 11/28/21 at 1656, For 2 doses, Maximum cumulative dose is 25 mg. Do not give to patients receiving MAO inhibitors (e. g. phenelzine (NARDIL), tranylcypromine (PARNATE), selegiline (ELDEPRYL))., PACU/Recovery midazolam (VERSED) injection 1-2 mg 0652 (Given - Provider: Art Burroughs RN) 1-2 mg, Intravenous, [id number], Sedation, Anxiety, Procedure, Starting on 11/28/21 at [...] 4 mg 1130 (Given - Provider: Jazzy rAauz RN) 4 mg, Intravenous, Q4H PRN, Nausea, [...] procedure note medication administration from procedure order [id number]) Starting on 11/28/21 at 0643, Until S at 11/28/21 at 1844, For 1 dose, Sergio Penny: cabinet override documented in this encounter Care Teams Environmental Services Coordinator Relationship Specialty Start Date End Date Snoia Pérez PA-C PCP - General Physician Welt Rander 01/10/17 [address] [facility] [address] [place] [id number] documented as of this encounter
--- OUTSIDE RECORDS SUMMARY | 2022-04-22 13:59 | XMS_ITS | Encounter Summary ---
:1965 Author Organization [facility] Address [address] [place] [address] Care Team Providers Name Role Phone Sonia Pérez PA-C Primary Care Provider Reason for Referral Procedure/Equipment (Routine) - Incomplete Specialty Diagnoses / Procedures Referred By Contact Refer red To Contact Diagnoses Postop check Vanna Ulloa MD Procedures XR Elbow Lt [address] [place] [address] [place] [address] 1 Referral ID Status Reason Start Date Expiration Date Visits V isits Requested Authorized [id number] Incomplete 12/04/2021 03/05/2023 1 1 Encounter Details Date Type Department Care Team Description 12/04/2021 Notes/Orders [facility] Vanna Ulloa MD Postop check (Primary CENTER [address] [place] [address] Dx) [address] [place], [place] [phone] (Wo rk) Social History Tobacco Use Types [...] 06/15/2022 Appointment Orthopedics Vanna Ulloa MD [address] [facility] [place] [phone] (Wo rk) Pending Results Name Type Priority Associated Diagnoses Date/Ti me XR Elbow Lt 2 Views Imaging New Routine Postop check 12/05/19 3:08 PM CDT Scheduled Orders Name Type Priority Associated Diagnoses Order S chedule XR Elbow Lt 2 Views Imaging New Routine Postop check Expected : 12/04/2021 (Approximate), Expires: 12/04/2022 documented as of this encounter Visit Diagnoses Diagnosis Postop check - Primary Follow-up examination, following unspeci fied surgery documented in this encounter Additional Health Concerns Infection Onset Date Last Indicated Resolved Time COVID19 12/22/2021 12/22/2021 01/02/2022 3:17 AM CDT documented as of this encounter Care Teams Assistant Manager Pt Relationship Specialty Start Date End Date Sonia Pérez PA-C PCP - General Physician Systems Integration Analyst 01/10/17 [address] [facility] [address] [place] [address] documented as of this encounter
--- OUTSIDE RECORDS SUMMARY | 2022-04-22 13:59 | XMS_ITS | Encounter Summary ---
:1965 Author Organization [facility] Address [address] [place] [address] Care Team Providers Name Role Phone Sonia Pérez PA-C Primary Care Provider Reason for Visit Procedure/Equipment (Routine) - Incomplete Specialty Diagnoses / Procedures Referred By Contact Refer red To Contact Diagnoses Dislocation of left elbow, initial encounter Vanna Ulloa MD Procedures CT Elbow Lt WO IV Cont CT Elbow Rt WO IV Cont [address] [facility] [place], [place] [address] Referral ID Status Reason Start Date Expiration Date Visits V isits Requested Authorized [id number] Incomplete 11/24/2021 02/23/2023 1 1 Encounter Details Date Type Department Care Team Description 11/25/2021 [place], Dislocatio n of left Procedure [place] [address] CT elbow, initial Scan [address] [facility] encounter [address] [place], [place] [address] [address] [place], [place] [phone] [address] (Work) [phone] Social History Tobacco Use Types Packs/Day Years [...] 06/15/2022 Appointment Orthopedics Vanna Ulloa MD [address] [place] [address] (Wo rk) documented as of this encounter Procedures Procedure Name Priority Date/Time Associated Diagnosis Comme nts CT ELBOW LT WO IV Routine 11/25/2021 12:11 PM Dislocation of l eft Results for this CONT CDT elbow, initial procedure are in encounter the results section. documented in this encounter Results CT Elbow Lt WO IV Cont (11/25/2021 12:11 PM CDT) Anatomical Region Laterality Modality Upper Extremity, Forearm, Arm, Elbow Com puted Tomography Specimen (Source) Anatomical Collection Method Collection Time Re ceived Time Location / / Volume Laterality 11/25/2021 12:00 PM CDT Impressions 11/25/2021 12:42 PM CDT TECHNIQUE: ??Thin section axial scans were obtained through the left elbow. Sagittal and coronal reconstruction was performed without contrast. COMPARISON: Radiograph 11/24/2021 FINDINGS: ?? 1. Posterior dislocation of the radial h ead and posterior subluxation of the lateral aspect of the proximal ulna. Medial aspect of the ulna articulates normally with the humeral trochlea. 2. Markedly comminuted displaced intra-a rticular fracture of the coronoid process of the proximal ulna. 3. Mildly impacted comminuted fracture i n the posterior capitellum. Small fracture fragments adjacent to the capitellum. 4. Mild posterior subluxation of the rad ial head in relationship to the proximal ulna. Procedure Note Bogdan Dow MD - 11/25/2021For matting of this note might be different from the original. IMPRESSION TECHNIQUE: Thin section axial scans were obtained through the left elbow. Sagittal and coronal reconstruction was performed without contrast. COMPARISON: Radiograph 11/24/2021 FINDINGS: 1. Posterior dislocation of the radial h ead and posterior subluxation of the lateral aspect of the proximal ulna. Medial aspect of the ulna articulates normally with the humeral trochlea. 2. Markedly comminuted displaced intra-a rticular fracture of the coronoid process of the proximal ulna. 3. Mildly impacted comminuted fracture i n the posterior capitellum. Small fracture fragments adjacent to the capitellum. 4. Mild posterior subluxation of the rad ial head in relationship to the proximal ulna. Vanna Ulloa MD RAD CT documented in this encounter Visit Diagnoses Diagnosis Dislocation of left elbow, initial encou nter documented in this encounter Care Teams Hand Upper And Bottom Lacer Relationship Specialty Start Date End Date Sonia Pérez PA-C PCP - General Physician Title Checker 01/10/[address] [place] [id number] documented as of this encounter
--- OUTSIDE RECORDS SUMMARY | 2022-04-22 14:00 | XMS_ITS | Encounter Summary ---
:1965 Author Organization [facility] Address [address] [place] [address] Care Team Providers Name Role Phone Sonia Pérez PA-C Primary Care Provider Reason for Visit Reason Comments Eye Problem Encounter Details Date Type Department Care Team Description 06/09/2020 Office Visit [place] [address] Kailee Ruff MD Seborrheic keratosis (Primary Dx); Ophthalmology [address] [facility] Benign neoplasm of left eyel id; [address] Floppy [place]id [place] [address] [phone] (Wo rk) Social History Tobacco Use Types Packs/Day Years Used Date Smoking Tobacco: Former Smokeless Tobacco: Never Comments: Quit smoking: Alcohol Use Standard Drinks/Week Comments Yes 0 (1 standard drink = 0.6 oz pure Alcoho lic Drinks/day: Amount:1-2 alcohol) drinks; Freq:2-4/Tue ; Sex Assigned at Date Recorded Not on file documented as of this encounter Patient Instructions Patient InstructionsKailee Ruff MD - 06/09/2020 3:00 PM CST Call if eyelid growth changes or bothers. Recommend discussing sleep consult/sleep study with ROBERT Pérez. Continue annual eye exams in [place]. OF LIME SLAKER documented in this encounter Progress Notes Kailee Ruff MD - 06/09/2020 3:00 PM CST Comprehensive Ophthalmology: Visit Summary Chief Complaint: Eye Problem Subjective: HPI Patient sent by Dr. Montaño for possible lump removal KRZYSZTOF Vision: Patient states that it can affect VA intermittently LE Patient states bump on ANDRIA lid margin has been there for years. Grown a little over past year Patient takes ASA everyday Eye meds: Cielo 128 q 4 hours WA LE Art tears PRN BE Ocular hx: chorioretinal scar RE , cataracts BE PMH: Type: Type 2 Diabetes Last HbA1c: Lab Results ? Component ?Value ? Date ? EXT RSLT - A1C ? 5.7 ? 11/24/2016 ? Glycosolated HGB A1* ? 6.3 (H) ?12/01/2015 ? Year dx: 2013 Managed with: insulin and metformin Menorrhagia with regular cycle Mixed anxiety depressive disorder (HRC) Morbid obesity with BMI of 40.0-44.9, adult (HRC) GERD (gastroesophageal reflux disease) Essential hypertension (HRC) Major depressive disorder, single episode Chronic rhinitis Obstructive sleep apnea Hyperlipidemia (HRC) Esophageal reflux Last edited by Brenda Celaya COMT on 06/09/2020 3:02 PM. (History) Review of Systems 10 systems reviewed, all negative except for what is documented in HPI. General medical evaluation: Liz is in no acute distress. A&O x 3. Objective: Physical Exam Base Eye Exam Visual Acuity (Snellen - Linear) Right Left Dist sc 20/25 20/20 Tonometry (Applanation, 3:06 PM) Right Left Pressure 17 17 Pupils Pupils APD Right PERRL None Left PERRL None Visual Jaime Left Right Full Extraocular Movement Right Left Full Full Neuro/Psych Oriented x3: Yes Mood/Affect: Normal Slit Lamp and Fundus Exam External Exam Right Left External Normal Normal Slit Lamp Exam Right Left Lids/Lashes Normal 3 mm seborrheic keratosis on temporal lid margin KRZYSZTOF Conjunctiva/Sclera White and quiet White and quiet Cornea Clear Clear Anterior Chamber Deep and quiet Deep and quiet Iris No Neovascularization, Pharm Dilated 2 iris strands on anterior lens surface, No neovascularization, Pharm Dilated Lens Trace Nuclear sclerosis Trace Nuclear sclerosis Vitreous Normal Normal Assessment: ICD-10-CM 1. Seborrheic keratosis L82.1 2. 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 Lesion is temporal to cornea, not in contact with cornea. It does not bother her and has beenthere for many years, recommend observation. She has some blurred vision left eye with some corneal irregularity about 2 weeks ago. Sounds like she may have FRED, had sleep study many years ago, does not use CPAP. She may be pushing left eye into pillow to keep airway open at night. Plan: Discussed findings and options in detail and answered questions. Patient Instructions Call if eyelid growth changes or bothers. Recommend discussing sleep consult/sleep study with ROBERT Pérez. Continue annual eye exams in [place]. Attending Physician Attestation: Complete documentation of historical and exam [facility] can be found in the full encounter summary report (not reduplicated in this progress note). I personally obtained the chief complaint(s) and history of present illness. I confirmed and editedas necessary the review of systems, past medical/surgical history, family history, social history, and examination findings as documented by others; and I examined the patient myself. I personally reviewed the relevant tests, images, and reports as documented above. 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
--- OUTSIDE RECORDS SUMMARY | 2022-04-22 14:00 | XMS_ITS | Encounter Summary ---
:1965 Author Organization [facility] Address [address] [place] [address] Care Team Providers Name Role Phone Antoinette Leal APRN, CNP Primary Care Provider Reason for Visit Reason Onset Date Comments Prior Authorization For Medication 07/30/2016 [facility] Encounter Details Date Type Department Care Team Description 07/30/2016 Telephone [facility] Antoinette Leal, Prior Au thorization For Medicine MAGED SHORE Medication (Trulicity) [facility] [facility] [address] [place] [address] [address] [phone] [place], [place] [address] Social History Tobacco Use Types Packs/Day Years Used Date Smoking Tobacco: Former Smokeless Tobacco: Never Comments: Quit smoking: Alcohol Use Standard Drinks/Week Comments Yes 0 (1 standard drink = 0.6 oz pure Alcoho lic Drinks/day: Amount:1-2 alcohol) drinks; Freq:2-4/Tue ; Sex Assigned at Date Recorded Not on file documented as of this encounter Nursing Notes Alex Garrett MA - 08/03/2016 1:40 PM CDT PA approved from 03/12/2016-03/12/2017 Pharmacy notified Alex Garrett MA - 07/30/2016 11:29 AM CDT Prior Authorization What prior authorization is needed? Dulaglutide (TRULICITY) 0.75 MG/0.5ML SOPN Insurance Carrier: [facility] [place] [address] ?? Patient advised, please allow 7-10 business days to complete. PA manually faxed. documented in this encounter Plan of Treatment Upcoming Encounters Date Type Specialty Care Team Description 06/15/2022 Appointment Orthopedics Vanna Ulloa MD [address] [facility] [place] [phone] (Wo rk) documented as of this encounter Visit Diagnoses Not on filedocumented in this encounter Care Teams Machining Technician Relationship Specialty Start Date End Date Antoinette Leal, HEADLINER INSTALLER, BILLET RECORDER PCP - General 04/15/14 01/09/17 14[address] [facility] [place] [phone] documented as of this encounter
--- OUTSIDE RECORDS SUMMARY | 2022-04-22 14:00 | XMS_ITS | Encounter Summary ---
:1965 Author Organization [employer] Address [address] [place] [address] Care Team Providers Name Role Phone Sonia Pérez PA-C Primary Care Provider Reason for Visit Reason Comments Diabetes Eye Exam Encounter Details Date Type Department Care Team Description 02/28/2017 Office Visit Herrera Vazquez Examinati on of eyes and vision (Primary Dx); Ophthalmology M, OD DM type 2 without retinopathy (HRC); [address] [place] [address] [place], [place] [phone] (Wo rk) Social History Tobacco Use Types Packs/Day Years Used Date Smoking Tobacco: Former Smokeless Tobacco: Never Comments: Quit smoking: Alcohol Use Standard Drinks/Week Comments Yes 0 (1 standard drink = 0.6 oz pure Alcoho lic Drinks/day: Amount:1-2 alcohol) drinks; Freq:2-4/Tue ; Sex Assigned at Date Recorded Not on file documented as of this encounter Progress Notes Herrera Hinson M, OD - 02/28/2017 10:20 AM CDT Patient is alert and feels well. Diabetic eye exam. No signs of diabetic retinopathy. ICD-10-CM 1. Examination of eyes and vision Z01.00 Refractive State, Determination Of - Bilateral 2. DM type 2 without retinopathy (HRC) E11.9 3. Bilateral presbyopia H52.4 Plan: Discussed findings with patient. Prescription given for new glasses. OTC reading glasses are fine. Recheck 1 year or sooner as needed. documented in this encounter Plan of Treatment Upcoming Encounters Date Type Specialty Care Team Description 06/15/2022 Appointment Orthopedics Vanna Ulloa MD [address] [facility] [place] [address] (Wo rk) documented as of this encounter Visit Diagnoses Diagnosis Examination of eyes and vision - Primary DM type 2 without retinopathy (HRC) Type II or unspecified type diabetes amy litus without mention of complication, not stated as uncontrolled Bilateral presbyopia Presbyopia documented in this encounter Care Teams Assembler Movement Relationship Specialty Start Date End Date Sonia Pérez PA-C PCP - General Physician Warp Placer 01/10/17 1601 [facility] [address] [place] [address] documented as of this encounter
--- OUTSIDE RECORDS SUMMARY | 2022-04-22 14:00 | XMS_ITS | Encounter Summary ---
:1965 Author Organization [facility] Address [address] [place] [address] Care Team Providers Name Role Phone Sonia Pérez PA-C Primary Care Provider Reason for Visit Procedure/Equipment (Routine) - Incomplete Specialty Diagnoses / Procedures Referred By Contact Refer red To Contact Diagnoses Acute left ankle pain Cain Albrecht MD Procedures XR Ankle Lt 3 Views [address] [place] [address] Referral ID Status Reason Start Date Expiration Date Visits V isits Requested Authorized [id number] Incomplete 11/17/2021 02/16/2023 1 1 Encounter Details Date Type Department Care Team Description 11/17/2021 Ancillary [facility] Cain Albrecht, Acute left ankle Procedure [address] [place] [facility] [place] [address] [phone] Social History Tobacco Use Types Packs/Day Years [...] Orthopedics Vanna Ulloa MD [address] [place] [address] (Wo rk) documented as of this encounter Procedures Procedure Name Priority Date/Time Associated Diagnosis Comme nts XR ANKLE LT 3 VIEWS Routine 11/17/2021 1:44 PM Acute left ankl e Results for this CDT pain procedure are i n the results section. documented in this encounter Results XR Ankle Lt 3 Views (11/17/2021 1:44 PM CDT) Anatomical Region Laterality Modality Lower Extremity, Ankle, Foot & Ankle Dig ital Radiography Specimen (Source) Anatomical Collection Method Collection Time Re ceived Time Location / / Volume Laterality 11/17/2021 1:37 PM CDT Impressions 11/17/2021 1:49 PM CDT COMPARISON: ??12/03/2013 FINDINGS: ??Right ankle 3 views. Minimal ly displaced oblique fracture of the distal fibular metaphysis. No acute fractures otherwise. Joint spaces are intact, ankle mortise is symmetric. Plantar and Ach illes calcaneal enthesophytes. Mild dege nerative changes in the midfoot. Procedure Note Omid Ybarra MD - 11/17/2021 IMPRESSION COMPARISON: 12/03/2013 FINDINGS: Right ankle 3 views. Minimally displaced oblique fracture of the distal fibular metaphysis. No acute fractures otherwise. Joint spaces are intact, ankle mortise is symmetric. Plantar and Achilles calcaneal enthesophytes. Mild degenerative changes in the midfoot. Cain Albrecht MD RAD GD documented in this encounter Visit Diagnoses Diagnosis Acute left ankle pain documented in this encounter Care Teams Leather Scrubber Relationship Specialty Start Date End Date Sonia Pérez PA-C PCP - General Physician Patient Services Clerk 01/10/17 1601 [facility] [place] [address] [place], [place] [address] documented as of this encounter
--- OUTSIDE RECORDS SUMMARY | 2022-04-22 14:00 | XMS_ITS | Encounter Summary ---
:1965 Author Organization [facility] Address [address] [place] [address] Care Team Providers Name Role Phone Sonia Pérez PA-C Primary Care Provider Reason for Visit Reason Comments Refill fluticasone (FLONASE) 50 MCG /ACT nasal solution [Pharmacy Med Name: FLUTICASONE 50MCG JERMAINE SP (12 0SP) RX] Encounter Details Date Type Department Care Team Description 04/01/2017 Refill [place] Daugherty, Refill ( fluticasone Medicine HIDE AND SKIN PROCESSING WORKER, PLANT INSPECTOR (FLONASE) 50 MCG/ACT [address] nasal solution [[place] [address] [place] [address] Med Name: FLUTICASONE [phone] (Wo rk) 50MCG JERMAINE SP (120SP) RX]) Social History Tobacco Use Types Packs/Day Years Used Date Smoking Tobacco: Former Smokeless Tobacco: Never Comments: Quit smoking: Alcohol Use Standard Drinks/Week Comments Yes 0 (1 standard drink = 0.6 oz pure Alcoho lic Drinks/day: Amount:1-2 alcohol) drinks; Freq:2-4/Tue ; Sex Assigned at Date Recorded Not on file documented as of this encounter Nursing Notes Magdalene Medrano - 04/05/2017 12:57 PM CST PRINTED letter and sent . MERCHANDISE PLANNER Chito Higginbotham, RN - 04/05/2017 12:49 PM CST OFFICE APPOINTMENT NEEDED Please notify patient to schedule an appointment within 30 days. Requested Prescriptions Signed Prescriptions Disp Refills ??? fluticasone (FLONASE) 50 MCG/ACT nasal solution 48 g 0 Sig: SHAKE LIQUID AND USE 2 SPRAYS IN EACH NOSTRIL DAILY Authorizing Provider: JUANA PETERS Ordering User: CHITO HIGGINBOTHAM . MERCHANDISE PLANNER Interface, Out [employer] Prov Query - 04/01/2017 3:00 PM CST fluticasone (FLONASE) 50 MCG/ACT nasal solution [Pharmacy Med Name: FLUTICASONE 50MCG JERMAINE SP (120SP)RX] Medication started: 03/19/2013 Last ordered by JUANA PETERS N: 03/15/2016 (382 days ago) QTY: 16, Refills: 3, Sig: place 2 sprays into both nostrils daily. (changed) -> This medication may not have been authorized by the requested provider. -> The requested sig has changed from the last order. -> Refill x 3 months (courtesy refill. overdue for an office visit) -> Calculate quantity and refills manually. They could not be estimated due to missing or unreadable information. Last qualifying visit: 03/15/2016 (with JUANA PETERS) (A more recent visit (in Family Practice) was found) Next scheduled visit: None SBP: 128 mm Hg on 08/30/2016 DBP: 104 mm Hg on 08/30/2016 Powered by [employer], Reference: [id number], 04/01/2017 3:00:26 PM SR. MERCHANDISE PLANNER, Pool: OTTO REFILL ([id number]) . MERCHANDISE PLANNER documented in this encounter Plan of Treatment Upcoming Encounters Date Type Specialty Care Team Description 06/15/2022 Appointment Orthopedics Vanna Ulloa MD 8100 [facility] [place] [phone] (Wo rk) documented as of this encounter Visit Diagnoses Diagnosis Rhinitis Chronic Chronic rhinitis documented in this encounter Care Teams Customer Advocacy Manager Relationship Specialty Start Date End Date Sonia Pérez PA-C PCP - General Physician Strategic Partner Development Manager 01/10/17 1601 [facility] [place] [address] [place] [address] documented as of this encounter
--- OUTSIDE RECORDS SUMMARY | 2022-04-22 14:00 | XMS_ITS | Encounter Summary ---
:1965 Author Organization [facility] Address [address] [place] [address] Care Team Providers Name Role Phone [place] Leal Zach BALL THREAD MACHINE TENDER, EXTERMINATOR Primary Care Provider Reason for Visit Reason Comments Refill ACCU-CHEK FARTUN PLUS test st rip [Pharmacy Med Name: ACCU-CHEK FARTUN PLUS STRIPS 100'S] Encounter Details Date Type Department Care Team Description 07/30/2016 Refill [facility] Mel [place] N, Refill ( ACCU-CHEK FARTUN Medicine BALL THREAD MACHINE TENDER, EXTERMINATOR PLUS test strip [address] [Pharmacy Med Name: [place] [address] [place] [address] ACCU-CHEK FARTUN PLUS [phone] (Wo rk) STRIPS 100'S]) Social History Tobacco Use Types Packs/Day Years Used Date Smoking Tobacco: Former Smokeless Tobacco: Never Comments: Quit smoking: Alcohol Use Standard Drinks/Week Comments Yes 0 (1 standard drink = 0.6 oz pure Alcoho lic Drinks/day: Amount:1-2 alcohol) drinks; Freq:- ; Sex Assigned at Date Recorded Not on file documented as of this encounter Nursing Notes Vicente Vaughan RN - 08/03/2016 7:37 AM CDT Renewed medication per medication refill protocol. Requested Prescriptions Signed Prescriptions Disp Refills ??? ACCU-CHEK FARTUN PLUS test strip 300 Strip 3 Sig: Use to test three times daily before meals. Code E11.9 Authorizing Provider: JUANA LEAL Ordering User: VICENTE VAUGHAN Interface, Out [employer] Query - 07/30/2016 4:43 PM CDT ACCU-CHEK FARTUN PLUS test strip [Pharmacy Med Name: ACCU-CHEK FARTUN PLUS STRIPS 100'S] Medication started: 08/18/2010 Last ordered by PEARL CARDENAS H: 12/02/2014 (606 days ago) QTY: 100, Refills: 6, Sig: use 1 strip as instructed 3 times daily. (changed) -> This medication may not have been authorized by the requested provider. -> The requested sig has changed from the last order. -> Refill x 12 months (maximum allowed per protocol) -> Calculate quantity and refills manually. They could not be estimated due to missing or unreadable information. Last qualifying visit: 03/15/2016 (with JUANA LEAL) Next scheduled visit: None Powered by [facility], Reference: [id number], 07/30/2016 4:43:43 PM CDT, Pool: OTTO HERNANDEZ ([id number]) documented in this encounter Plan of Treatment Upcoming Encounters Date Type Specialty Care Team Description 06/15/2022 Appointment Orthopedics Vanna Ulloa MD 8100 [facility] [place] [phone] (Wo rk) documented as of this encounter Visit Diagnoses Not on filedocumented in this encounter Care Teams Resp Therapist Relationship Specialty Start Date End Date [place] Leal, BALL THREAD MACHINE TENDER, EXTERMINATOR PCP - General 04/15/14 01/09/17 [address] [place] [address] documented as of this encounter
--- OUTSIDE RECORDS SUMMARY | 2022-04-22 14:00 | XMS_ITS | Encounter Summary ---
:1965 Author Organization [facility] Address [address] [place] [address] Care Team Providers Name Role Phone Sonia Pérez PA-C Primary Care Provider Reason for Visit Procedure/Equipment (Routine) - Incomplete Specialty Diagnoses / Procedures Referred By Contact Refer red To Contact Procedures Provider, Foreign Images Foreign Image(S) XR Elbow Lt [address] [place] [address] Referral ID Status Reason Start Date Expiration Date Visits V isits Requested Authorized [id number] Incomplete 11/24/2021 02/23/2023 1 1 Encounter Details Date Type Department Care Team Description 11/23/2021 Ancillary Procedure [facility] Radiology PACS Provider, Foreign [address] [place] [address] [address] [place] [address] Social History Tobacco Use Types Packs/Day Years [...] 06/15/2022 Appointment Orthopedics Vanna Ulloa MD [address] [place], [place] [phone] (Wo rk) documented as of this encounter Procedures Procedure Name Priority Date/Time Associated Diagnosis Comme nts FOREIGN IMAGE(S) XR Routine 11/23/2021 4:55 PM Re sults for this ELBOW LT CDT procedure are i n the results section. documented in this encounter Results Foreign Image(S) XR Elbow Lt (11/23/2021 4:55 PM CDT) Specimen (Source) Anatomical Location Collection Method / Collectio n Time Received Time / Laterality Volume Narrative POCT - 11/24/2021 1:07 PM CDT These outside images have been uploaded into PACS. If the results were provided, they will be located in the erwin mai's chart under the Media or Imaging tab. Foreign Images Provider RAD NON-REPORTABLES Performing Organization Address City/State/ZIP Code Phon e Number POCT documented in this encounter Visit Diagnoses Not on filedocumented in this encounter Care Teams Full Service Supervisor Relationship Specialty Start Date End Date Sonia Pérez PA-C PCP - General Physician Academic Tutor 01/10/[address] [address] documented as of this encounter
--- OUTSIDE RECORDS SUMMARY | 2022-04-22 14:00 | XMS_ITS | Encounter Summary ---
:1965 Author Organization [facility] Address [address] [place] [address] Care Team Providers Name Role Phone Antoinette Leal APRN, CNP Primary Care Provider Encounter Details Date Type Department Care Team Description 10/22/2016 Notes/Orders [facility] Antoinette Leal, Control ed type 2 Medicine MAGED SHORE diabetes mellitus [address] [facility] without complication, [place] [address] Ave with long-term current [phone] [place] [address] use of insulin (HRC) [phone] (Primary Dx) (Work) Social History Tobacco Use Types Packs/Day Years [...] 06/15/2022 Appointment Orthopedics Vanna Ulloa MD [address] [place], [place] [phone] (Wo rk) documented as of this encounter Visit Diagnoses Diagnosis Controlled type 2 diabetes mellitus with out complication, with long-term current use of insulin (HRC) - Primary documented in this encounter Care Teams Paper Feeder Relationship Specialty Start Date End Date Antoinette Leal, OPERATING ROOM MANAGER, SILK SOAKER PCP - General 04/15/14 01/09/17 [address] [place] [address] documented as of this encounter
--- OUTSIDE RECORDS SUMMARY | 2022-04-22 14:00 | XMS_ITS | Encounter Summary ---
:1965 Author Organization [facility] Address [address] [place] [address] Care Team Providers Name Role Phone Sonia Pérez PA-C Primary Care Provider Reason for Visit Reason Comments Diabetes Routine Eye Exam Encounter Details Date Type Department Care Team Description 05/30/2020 Office Visit Glory Barrera gy Harry Montaño, Corneal edema (Primary [address] [place] Dx) [address] [place] [address] Sharda Beard [phone] [place], [place] [phone] Social History Tobacco Use Types Packs/Day Years Used Date Smoking Tobacco: Former Smokeless Tobacco: Never Comments: Quit smoking: Alcohol Use Standard Drinks/Week Comments Yes 0 (1 standard drink = 0.6 oz pure Alcoho lic Drinks/day: Amount:1-2 alcohol) drinks; Freq:2-4/Tue ; Sex Assigned at Date Recorded Not on file documented as of this encounter Patient Instructions Patient InstructionsHarry Montaño, OD - 05/30/2020 1:00 PM CST Cielo drops 4 x per day until vision normal Have the eyelid cyst removed left eye T SUPERINTENDENT documented in this encounter Progress Notes Harry Montaño, OD - 05/30/2020 1:00 PM CST Looks well LE blur in AM upon awakening yesterday 2+ Descemet's folds,likely from sleeping on left side and UL cyst pressing on cornea Cielo 2% drops qid until resolved Dr Ruff lid lump removal [id number] Outpatient ordered medications Medication Sig sodium chloride (CIELO-128) 2 % eye drop solution Place 1 Drop into left eye every 4 hours as neededfor up to 7 days. T SUPERINTENDENT documented in this encounter Plan of Treatment Upcoming Encounters Date Type Specialty Care Team Description 06/15/2022 Appointment Orthopedics Vanna Ulloa MD 8100 [facility] [place] [phone] (Wo rk) documented as of this encounter Visit Diagnoses Diagnosis Corneal edema - Primary Corneal edema, unspecified documented in this encounter Care Teams Ballast Cleaning Operator Relationship Specialty Start Date End Date Sonia Pérez PA-C PCP - General Physician Tank Inspector 01/10/17 1601 [facility] [address] [place] [address] documented as of this encounter
--- OUTSIDE RECORDS SUMMARY | 2022-04-22 14:00 | XMS_ITS | Encounter Summary ---
:1965 Author Organization [facility] Address [address] [place] [address] Care Team Providers Name Role Phone [place] Leal Zach SHORE, CORRESPONDENCE SPECIALIST Primary Care Provider Reason for Visit Reason Comments Refill BD PEN NEEDLE JUHI U/F 32G X 4 MM [Pharmacy Med Name: B-D PEN NDL JUHI [id number]() GRN] Encounter Details Date Type Department Care Team Description 07/20/2016 Refill Glory Covarrubias Kishorxavier [place] Serrano, Refill ( BD PEN NEEDLE Medicine MAGED SHORE JUHI U/F 32G X [address] [facility] [address] [Pharmacy Med Name: [place] [address] [place] [address] PEN NDL JUHI [phone] (Wo rk) [id number]() GRN]) Social History Tobacco Use Types Packs/Day Years Used Date Smoking Tobacco: Former Smokeless Tobacco: Never Comments: Quit smoking: Alcohol Use Standard Drinks/Week Comments Yes 0 (1 standard drink = 0.6 oz pure Alcoho lic Drinks/day: Amount:1-2 alcohol) drinks; Freq:- ; Sex Assigned at Date Recorded Not on file documented as of this encounter Nursing Notes Makayla Vázquez LPN - 07/21/2016 8:19 AM CST per distribution list PMENT MAINTENANCE SUPERVISOR Vangie Vaughan RN - 07/20/2016 10:07 PM CST Further assistance needed to complete refill request Reason: RN Reviewed--Need signed order in [facility] for pended medication. Next Steps: Review pended order for accuracy. Sign. Close encounter. Requested Prescriptions Pending Prescriptions Disp Refills ??? insulin pen needle (BD PEN NEEDLE JUHI U/F) 32G X 4 MM [Pharmacy Med Name: B-D PEN NDL JUHI [id number]() GRN] 200 Each 3 Sig: Inject subcutaneously two times a day. PMENT MAINTENANCE SUPERVISOR Interface, Out S[employer] Prov Query - 07/20/2016 12:35 PM CST BD PEN NEEDLE JUHI U/F 32G X 4 MM [Pharmacy Med Name: B-D PEN NDL JUHI [id number]() GRN] Medication started: 01/22/2015 Last ordered by JUANA LEAL N: 03/19/2015 (489 days ago) QTY: 200, Refills: 3, Sig: inject 2 needles subcutaneously daily (every 24 hours). (changed) -> This medication may not have been authorized by the requested provider. -> The requested sig has changed from the last order. -> Refill x 12 months (maximum allowed per protocol) -> Calculate quantity and refills manually. They could not be estimated due to missing or unreadable information. Last qualifying visit: 03/15/2016 (with JUANA LEAL) Next scheduled visit: None Powered by [employer], Reference: [id number], 07/20/2016 12:35:55 PM EQUIPMENT MAINTENANCE SUPERVISOR, Pool: OTTO REFILL ([id number]) PMENT MAINTENANCE SUPERVISOR documented in this encounter Plan of Treatment Upcoming Encounters Date Type Specialty Care Team Description 06/15/2022 Appointment Orthopedics Vanna Ulloa MD 8[address] [facility] [place] [phone] (Wo rk) documented as of this encounter Visit Diagnoses Not on filedocumented in this encounter Care Teams Family Caseworker Relationship Specialty Start Date End Date [place] Leal, THERMAL ENGINEER, CORRESPONDENCE SPECIALIST PCP - General 04/15/14 01/09/17 1415 [facility] [place] [address] documented as of this encounter
--- OUTSIDE RECORDS SUMMARY | 2022-04-22 14:00 | XMS_ITS | Encounter Summary ---
:1965 Author Organization [facility] Address [address] [place] [address] Care Team Providers Name Role Phone Sonia Pérez PA-C Primary Care Provider Encounter Details Date Type Department Care Team Description 01/14/2021 Notes/Orders [facility] [address] Sonia Pérez PA-C Contact with and Up 16[address] [facility] (suspected) exposure [address] to covid-19 [place], [place] [address] [address] [place], [place] [address] Social History Tobacco Use Types Packs/Day Years [...] 06/15/2022 Appointment Orthopedics Vanna Ulloa MD [address] [place] [address] (Wo rk) documented as of this encounter Results Asymptomatic - 2019 Novel Coronavirus (COVID-19) (01/15/2021 11:08 AM CDT) Patholo gist Method Time Signature COVID-19 Not Not 01/16/2021 [facility] Interpretation Detected Detected 7:39 AM CENTRAL LAB CDT Source Nares, left 01/16/2021 [place] and right 7:39 AM LABORATORY CDT Specimen Anatomical Collection Method Collection Time Receive d Time (Source) Location / / Volume Laterality Swab (Source ENTIRE ANTERIOR Non-blood 01/15/2021 11:08 01/16/20 21 Required) NARIS / Unknown Collection / AM CDT 11:08 AM CDT Unknown Narrative [facility] - 01/16/2021 7:39 AM CDT Test performed by Regional Sales Manager Mediated Amplification. TMA has been shown to be equivalent to commercial real-time PCR t ests. This test has been authorized by the FDA under an Emergency Use Authorization (EUA) for use by authorized laboratories. Sonia Pérez PA-C LAB_1 Performing Organization Address City/State/ZIP Code Phon e Number [facility] [address] [id number] [facility] [address] [place] [address] documented in this encounter Visit Diagnoses Diagnosis Contact with and (suspected) exposure to covid-19 documented in this encounter Care Teams Miller Apprentice Relationship Specialty Start Date End Date Sonia Pérez PA-C PCP - General Physician Shovel Oiler 01/10/17 1601 [facility] [address] [place] [address] documented as of this encounter
--- OUTSIDE RECORDS SUMMARY | 2022-04-22 14:00 | XMS_ITS | Encounter Summary ---
:1965 Author Organization [employer] Address [address] [place] [address] Care Team Providers Name Role Phone Sonia Pérez PA-C Primary Care Provider Reason for Visit Reason Comments Diabetes Eye Exam Encounter Details Date Type Department Care Team Description 06/25/2021 Office Visit Herrera Vazquez DM type 2 without retinopathy (HRC) (Primary Dx); Ophthalmology M, OD Examination of eyes and vision; [address] [place] [address] [facility] era presbyopia; [address] Early cataracts, bilateral; [place] [address] [place], [place] Bilateral epiphora [phone] (Wo rk) Social History Tobacco Use Types Packs/Day Years Used Date Smoking Tobacco: Former Smokeless Tobacco: Never Comments: Quit smoking: Alcohol Use Standard Drinks/Week Comments Yes 0 (1 standard drink = 0.6 oz pure Alcoho lic Drinks/day: Amount:1-2 alcohol) drinks; Freq:2- ; Sex Assigned at Date Recorded Not on file documented as of this encounter Patient Instructions Patient InstructionsHerrera Hinson M, OD - 06/25/2021 11:20 AM CST Use artificial tears such as Systane Ultra or Refresh Relieva 1 drop in each eye 4 times a day in both eyes, then as needed. Call me if not improved. [phone] TER MODEL AND MOLD MAKER documented in this encounter Progress Notes Herrera Hinson, OD - 06/25/2021 11:20 AM CST Patient is alert and feels well. Diabetic eye exam. No signs of diabetic retinopathy. ICD-10-CM 1. DM type 2 without retinopathy (HRC) E11.9 2. Examination of eyes and vision Z01.00 3. Bilateral presbyopia H52.4 4. Early cataracts, bilateral H26.9 5. Bilateral epiphora H04.203 Plan: Discussed findings with patient. Patient educated on taking medications as directed, good blood sugar control, healthy diet, routine exercise, and regular follow-ups with PCP. Monitor annually with dilated eye exam. She is satisfied using olps-kyc-formfoe reading glasses. Patient Instructions Use artificial tears such as Systane Ultra or Refresh Relieva 1 drop in each eye 4 times a day in both eyes, then as needed. Call me if not improved. [phone] If not better, she will see Dr. Vasques or Dr. Kailee Ruff for punctal dilation. Recheck 1 year or sooner as needed. TER MODEL AND MOLD MAKER documented in this encounter Plan of Treatment Upcoming Encounters Date Type Specialty Care Team Description 06/15/2022 Appointment Orthopedics Vanna Ulloa MD [address] [facility] [place] [id number] (Wo rk) documented as of this encounter Visit Diagnoses Diagnosis DM type 2 without retinopathy (HRC) - Pr imary Type II or unspecified type diabetes amy litus without mention of complication, not stated as uncontrolled Examination of eyes and vision Bilateral presbyopia Presbyopia Early cataracts, bilateral Unspecified cataract Bilateral epiphora Epiphora, unspecified as to cause documented in this encounter Care Teams Supervisor Grounds Relationship Specialty Start Date End Date Sonia Pérez PA-C PCP - General Physician Layer Out 01/10/17 [facility]1 [facility] [address] [place] [address] documented as of this encounter
--- OUTSIDE RECORDS SUMMARY | 2022-04-22 14:00 | XMS_ITS | Encounter Summary ---
:1965 Author Organization [facility] Address [address] [place] [address] Care Team Providers Name Role Phone Sonia Pérez PA-C Primary Care Provider Encounter Details Date Type Department Care Team Description 10/30/2018 Care Coord Documentation Tran Greco RN [address] [place] [address] [place], [place] [phone] [address] Social History Tobacco Use Types Packs/Day Years Used Date Smoking Tobacco: Former Smokeless Tobacco: Never Comments: Quit smoking: Alcohol Use Standard Drinks/Week Comments Yes 0 (1 standard drink = 0.6 oz pure Alcoho lic Drinks/day: Amount:1-2 alcohol) drinks; Freq:2-4/Tue ; Sex Assigned at Date Recorded Not on file documented as of this encounter Progress Notes Tran Rodriguez RN - 10/30/2018 3:42 PM CDT Health [facility], Active Care Coordination resolved in patient???s Problem List. Reason: Patient changed healthcare systems Patient may be referred again in the future if needed. documented in this encounter Plan of Treatment Upcoming Encounters Date Type Specialty Care Team Description 06/15/2022 Appointment Orthopedics Vanna Ulloa MD [address] [place] [address] (Wo rk) documented as of this encounter Visit Diagnoses Not on filedocumented in this encounter Care Teams Schedule Clerk Relationship Specialty Start Date End Date Sonia Pérez PA-C PCP - General Physician Manager Of Corporate 01/10/17 1601 [facility] [address] [place] [address] documented as of this encounter
--- OUTSIDE RECORDS SUMMARY | 2022-04-22 14:00 | XMS_ITS | Encounter Summary ---
:1965 Author Organization [facility] Address [address] [place] [address] Care Team Providers Name Role Phone Sonia Pérez PA-C Primary Care Provider Reason for Visit Procedure/Equipment (Routine) - Incomplete Specialty Diagnoses / Procedures Referred By Contact Refer red To Contact Procedures Provider, Foreign Images Foreign Image(S) XR Elbow Lt [address] [place] [address] Referral ID Status Reason Start Date Expiration Date Visits V isits Requested Authorized [id number] Incomplete 11/24/2021 02/23/2023 1 1 Encounter Details Date Type Department Care Team Description 11/23/2021 Ancillary Procedure RC Radiology PACS Provider, Foreign [address] [place] [address] [address] [place] [address] Social History Tobacco Use Types Packs/Day Years [...] 06/15/2022 Appointment Orthopedics Vanna Ulloa MD [address] [place], [place] [address] (Wo rk) documented as of this encounter Procedures Procedure Name Priority Date/Time Associated Diagnosis Comme nts FOREIGN IMAGE(S) XR Routine 11/23/2021 4:15 PM Re sults for this ELBOW LT CDT procedure are i n the results section. documented in this encounter Results Foreign Image(S) XR Elbow Lt (11/23/2021 4:15 PM CDT) Specimen (Source) Anatomical Location Collection [...] on filedocumented in this encounter Care Teams Kiln Operator Relationship Specialty Start Date End Date Sonia Pérez PA-C PCP - General Physician Scouring Pads Supervisor 01/10/[address] [address] documented as of this encounter
--- OUTSIDE RECORDS SUMMARY | 2022-04-22 14:00 | XMS_ITS | Encounter Summary ---
:1965 Author Organization [employer] Address [address] [place] [address] Care Team Providers Name Role Phone Sonia Pérez PA-C Primary Care Provider Reason for Visit Reason Comments Diabetes Eye Exam Encounter Details Date Type Department Care Team Description 05/29/2019 Office Visit Herrera Vazquez DM type 2 without retinopathy (HRC) (Primary Dx); Ophthalmology M, OD Examination of eyes and vision; [address] Hyper opia with presbyopia, bilateral [address] [place] [address] [place], [place] [phone] (Wo rk) Social History Tobacco Use Types Packs/Day Years Used Date Smoking Tobacco: Former Smokeless Tobacco: Never Comments: Quit smoking: Alcohol Use Standard Drinks/Week Comments Yes 0 (1 standard drink = 0.6 oz pure Alcoho lic Drinks/day: Amount:1-2 alcohol) drinks; Freq:2-4/Tue ; Sex Assigned at Date Recorded Not on file documented as of this encounter Progress Notes Herrera Hinson M, OD - 05/29/2019 11:20 AM CST Patient is alert and feels well. Diabetic eye exam. No signs of diabetic retinopathy. ICD-10-CM 1. DM type 2 without retinopathy (HRC) E11.9 2. Examination of eyes and vision Z01.00 3. 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 Prescription given for new glasses. Unchanged. Recheck 1 year or sooner as needed. ICULTURE SUPERVISOR documented in this encounter Plan of Treatment Upcoming Encounters Date Type Specialty Care Team Description 06/15/2022 Appointment Orthopedics Vanna Ulloa MD [address] [facility] [place] [id number] (Wo rk) documented as of this encounter Visit Diagnoses Diagnosis DM type 2 without retinopathy (HRC) - Pr imary Type II or unspecified type diabetes amy litus without mention of complication, not stated as uncontrolled Examination of eyes and vision Hyperopia with presbyopia, bilateral documented in this encounter Care Teams Dry Cell Tester Relationship Specialty Start Date End Date Sonia Pérez PA-C PCP - General Physician Plastic Extruding Machine Operator 01/10/17 1601 [facility] [address] [place] [address] documented as of this encounter
--- OUTSIDE RECORDS SUMMARY | 2022-04-22 14:00 | XMS_ITS | Encounter Summary ---
:1965 Author Organization [facility] Address [address] [place] [address] Care Team Providers Name Role Phone Mel Juana Serrnao APRN, MAGED Primary Care Provider Reason for Visit Reason Comments Refill lisinopril (ZESTRIL) 20 MG t ablet [Pharmacy Med Name: LISINOPRIL 20MG TABLETS] Encounter Details Date Type Department Care Team Description 07/09/2016 Refill [facility] Juana Leal, Refill ( lisinopril Medicine MAGED SHORE (ZESTRIL) 20 MG tablet [address] [facility] [address] [Pharmacy Med Name: [place] [address] [place] [address] LISINOPRIL 20MG [phone] (Wo rk) TABLETS]) Social History Tobacco Use Types Packs/Day Years Used Date Smoking Tobacco: Former Smokeless Tobacco: Never Comments: Quit smoking: Alcohol Use Standard Drinks/Week Comments Yes 0 (1 standard drink = 0.6 oz pure Alcoho lic Drinks/day: Amount:1-2 alcohol) drinks; Freq:- ; Sex Assigned at Date Recorded Not on file documented as of this encounter Nursing Notes Meaghan Ferrer RN - 07/10/2016 9:12 AM CST Renewed medication per medication refill protocol. Requested Prescriptions Pending Prescriptions Disp Refills lisinopril (ZESTRIL) 20 MG tablet [Pharmacy Med Name: LISINOPRIL 20MG TABLETS] 90 Tab 1 Sig: TAKE 1 TABLET BY MOUTH EVERY DAY RAL STERILE TECH Interface, Out Kaizena Prov Query - 07/09/2016 9:05 PM CST lisinopril (ZESTRIL) 20 MG tablet [Pharmacy Med Name: LISINOPRIL 20MG TABLETS] Medication started: 08/18/2010 Last ordered by JUANA LEAL N: 12/01/2015 (221 days ago) QTY: 90, Refills: 1, Sig: take 1 tablet by mouth daily (every 24 hours). (changed but equivalent) -> Refill x 6 months (until due for a(n) Cr check and K check) Last qualifying visit: 03/15/2016 (with JUANA LEAL) Next scheduled visit: None SBP: 120 mm Hg on 03/15/2016 DBP: 70 mm Hg on 03/15/2016 Cr: 0.9 mg/dL on 12/01/2015 K: 4.4 mEq/L on 12/01/2015 Powered by [employer], Reference: [id number], 07/09/2016 9:05:34 PM CENTRAL STERILE TECH, Pool: OTTO REFILL ([id number]) RAL STERILE TECH documented in this encounter Plan of Treatment Upcoming Encounters Date Type Specialty Care Team Description 06/15/2022 Appointment Orthopedics Vanna Ulloa MD [address] [facility] [place] [phone] (Wo rk) documented as of this encounter Visit Diagnoses Not on filedocumented in this encounter Care Teams Taper/Finisher Relationship Specialty Start Date End Date Juana Leal, SHELVER, ROLL REPAIRER PCP - General 04/15/14 01/09/17 1415 [facility] [place] [id number] documented as of this encounter
--- OUTSIDE RECORDS SUMMARY | 2022-04-22 14:00 | XMS_ITS | Encounter Summary ---
:1965 Author Organization [facility] Address [address] [place] [address] Care Team Providers Name Role Phone Sonia Pérez PA-C Primary Care Provider Reason for Visit Reason Comments Registry Encounter Details Date Type Department Care Team Description 01/10/2017 Notes/Orders [facility] cine Antoinette Leal, INVENTORY TRANSCRIBER, [address] [place] [address] [address] [facility] [phone] [place], [place] [address] (Wo rk) Social History Tobacco Use Types Packs/Day Years Used Date Smoking Tobacco: Former Smokeless Tobacco: Never Comments: Quit smoking: Alcohol Use Standard Drinks/Week Comments Yes 0 (1 standard drink = 0.6 oz pure Alcoho lic Drinks/day: Amount:1-2 alcohol) drinks; Freq:2-4/Tue ; Sex Assigned at Date Recorded Not on file documented as of this encounter Progress Notes Makayla Vázquez LPN - 01/10/2017 7:59 AM CDT Pt was called in November 2016 and pt has transferred care to [facility] documented in this encounter Plan of Treatment Upcoming Encounters Date Type Specialty Care Team Description 06/15/2022 Appointment Orthopedics Vanna Ulloa MD [address] [place] [phone] (Wo rk) documented as of this encounter Procedures Procedure Name Priority Date/Time Associated Diagnosis Comme nts EXT RSLT - A1C Routine 11/24/2016 Results for t his procedure are in the resu lts section. documented in this encounter Results A1C (Ext Rslt) (11/24/2016) P athologist Signature EXT RSLT - A1C 5.7 PN POCT Specimen (Source) Anatomical Location Collection Method / Collectio n Time Received Time / Laterality Volume 11/24/2016 Provider [facility] EXTERNAL RESULT Performing Organization Address City/State/ZIP Code Phon e Number POCT PN POCT documented in this encounter Visit Diagnoses Not on filedocumented in this encounter Care Teams Gantry Rigger Relationship Specialty Start Date End Date Sonia Pérez PA-C PCP - General Physician Cyber Ops Planner 01/10/[address] [facility] [place] [address] [place] [phone] documented as of this encounter
--- OUTSIDE RECORDS SUMMARY | 2022-04-22 14:00 | XMS_ITS | Encounter Summary ---
:1965 Author Organization [facility] Address [address] [place] [address] Care Team Providers Name Role Phone Juana Leal APRN, CNP Primary Care Provider Reason for Visit Reason Comments Refill TRULICITY 0.75 MG/0.5ML SOPN [Pharmacy Med Name: TRULICITY 0.75MG/0.5ML SDP 4X0.5ML] Encounter Details Date Type Department Care Team Description 05/05/2016 Refill [facility] Juana Leal, Refill ( TRULICITY 0.75 Medicine HEALTH CARE SPECIALIST, CHISEL WORKER MG/0.5ML SOPN [Pharmacy [address] Med Name: [place] [address] [place] [address] 0.75MG/0.5ML SDP [phone] (Wo rk) 4X0.5ML]) Social History Tobacco Use Types Packs/Day Years Used Date Smoking Tobacco: Former Smokeless Tobacco: Never Comments: Quit smoking: Alcohol Use Standard Drinks/Week Comments Yes 0 (1 standard drink = 0.6 oz pure Alcoho lic Drinks/day: Amount:1-2 alcohol) drinks; Freq:2-4/Tue ; Sex Assigned at Date Recorded Not on file documented as of this encounter Nursing Notes Juana Leal APRN, CNP - 05/06/2016 7:08 AM CST Medication refilled. Please notify patient. Thanks. ENTRY EMAIL PROCESSOR Interface, Out [employer] Prov Query - 05/05/2016 3:15 PM CST TRULICITY 0.75 MG/0.5ML SOPN [Pharmacy Med Name: TRULICITY 0.75MG/0.5ML SDP 4X0.5ML] Medication started: 07/09/2015 Last ordered by JUANA LEAL N: 02/03/2016 (92 days ago) QTY: 10, Refills: 0, Sig: inject 1 pen subcutaneously once a week. (changed) -> The requested sig has changed from the last order. -> This medication cannot be delegated per protocol. Last qualifying visit: 03/15/2016 (with JUANA LEAL) Next scheduled visit: None [facility]ered by [email or web address], Reference: [id number], 05/05/2016 3:15:31 PM LEONARDO, Tonio: OTTO DUENASILL ([id number]) ENTRY EMAIL PROCESSOR documented in this encounter Plan of Treatment Upcoming Encounters Date Type Specialty Care Team Description 06/15/2022 Appointment Orthopedics Vanna Ulloa MD [address] [facility] [place] [phone] (Wo rk) documented as of this encounter Visit Diagnoses Not on filedocumented in this encounter Care Teams Fabrication Inspector Relationship Specialty Start Date End Date Juana Leal, HEALTH CARE SPECIALIST, CHISEL WORKER PCP - General 04/15/14 01/09/17 [address] [place] [id number] documented as of this encounter
--- OUTSIDE RECORDS SUMMARY | 2022-04-22 14:00 | XMS_ITS | Encounter Summary ---
:1965 Author Organization [facility] Address [address] [place] [address] Care Team Providers Name Role Phone Antoinette Leal MACHINE CEMENTER AND FOLDER, WRAPPER LAYER Primary Care Provider [phone] Reason for Visit Reason Onset Date Comments VISION, PROBLEM 07/19/2016 Encounter Details Date Type Department Care Team Description 07/19/2016 Nurse Triage [facility] Antoinette Leal, VISION, PROBLEM [address] MACHINE CEMENTER AND FOLDER, [place] [address] [address] [facility] [phone] [place], [place] [address] (Wo rk) Social History Tobacco Use Types Packs/Day Years Used Date Smoking Tobacco: Former Smokeless Tobacco: Never Comments: Quit smoking: Alcohol Use Standard Drinks/Week Comments Yes 0 (1 standard drink = 0.6 oz pure Alcoho lic Drinks/day: Amount:1-2 alcohol) drinks; Freq:2-4/Tue ; Sex Assigned at Date Recorded Not on file documented as of this encounter Nursing Notes Kasandra Cortes RN - 07/19/2016 12:10 PM CST Protocol: NEUROLOGIC [id number] Affirmative: Difficult to awaken or acting confused (e.g., disoriented, slurred speech) Disposition of Call 911 suggested. Received call from call center, reporting vision changes, weakness; pt panting breath, hardly able to speak, spell out her name; on phone as well, he is with her; states she is fading in and out. Advised to call 911 now. Offered to help with that, said is is able to make the call; ended call to facilitate 911 alert faster. N CONTROL TECHNICIAN documented in this encounter Plan of Treatment Upcoming Encounters Date Type Specialty Care Team Description 06/15/2022 Appointment Orthopedics Vanna Ulloa MD [address] [facility] [place] [address] (Wo rk) documented as of this encounter Visit Diagnoses Not on filedocumented in this encounter Care Teams Bootmaker Relationship Specialty Start Date End Date Antoinette Leal, MACHINE CEMENTER AND FOLDER, WRAPPER LAYER PCP - General 04/15/14 01/09/17 1415 [facility] [place] [address] documented as of this encounter
--- OUTSIDE RECORDS SUMMARY | 2022-04-22 14:00 | XMS_ITS | Encounter Summary ---
:1965 Author Organization [employer] Address [address] [place] [address] Care Team Providers Name Role Phone Antoinette Leal APRN, SALES AND DISTRIBUTION CLERK Primary Care Provider Reason for Visit Reason Comments Other difficulty breathing, nausea , decrease apetite abdominal pain- overwhealm - has not been able to eat for 3 days Encounter Details Date Type Department Care Team Description 08/30/2016 Office Visit [facility] Shruti Allison V, Abdomin al pain, unspecified location (Primary Dx); Medicine PA-C Nausea; [address] [place] [address] [place] [address] Social History Tobacco Use Types Packs/Day Years [...] Sign Reading Time Taken Comments Blood Pressure 128/104 08/30/2016 1:07 PM CDT Pulse - - Temperature - - Respiratory Rate - - Oxygen Saturation - - Inhaled Oxygen Concentration - - Weight - - Height - - Body Mass Index - - documented in this encounter Progress Notes Shruti Gonzalez V - 08/30/2016 2:54 PM CDT Chief Complaint Patient presents with ??? Other difficulty breathing, nausea, decrease apetite abdominal pain- overwhealm - has not been able to eat for 3 days Patient was in our lobby quite overwhelmed complaining of difficulty breathing, nauseous and hyperventilating. When she was taking back to the room she was agitated. Patient appears upset and overwhelmed stating something is wrong with me. Patient was shaking and sweating. Patient complaint of high mid epigastric abdominal pain and difficulty breathing.. Stating: Someone needs to figure out what is happening to me Maybe is my meds stated that she has not eaten for several days. Patient appear lightheaded, dizzy preferred to lay down the examining table. At the same time appeared upset and mad . Patient was taken to [facility] emergency room for further evaluation. BP 128/104 mmHg documented in this encounter Plan of Treatment Upcoming Encounters Date Type Specialty Care Team Description 06/15/2022 Appointment Orthopedics Vanna Ulloa MD [address] [facility] [place] [address] (Wo rk) documented as of this encounter Visit Diagnoses Diagnosis Abdominal pain, unspecified location - P rimary Nausea Nausea alone Difficulty breathing Other dyspnea and respiratory abnormalit y documented in this encounter Care Teams Sap Project Manager Relationship Specialty Start Date End Date Antoinette Leal, DIRECTOR MEDICAL ECONOMICS, SALES AND DISTRIBUTION CLERK PCP - General 04/15/14 01/09/17 [facility]5 [facility] [place] [address] documented as of this encounter
--- OUTSIDE RECORDS SUMMARY | 2022-04-22 14:00 | XMS_ITS | Encounter Summary ---
:1965 Author Organization [facility] Address [address] [place] [address] Care Team Providers Name Role Phone Sonia Pérez PA-C Primary Care Provider Reason for Visit Procedure/Equipment (Routine) - Incomplete Specialty Diagnoses / Procedures Referred By Contact Refer red To Contact Procedures Provider, Foreign Images Foreign Image(S) XR Elbow Lt [address] [place] [address] Referral ID Status Reason Start Date Expiration Date Visits V isits Requested Authorized [id number] Incomplete 11/24/2021 02/23/2023 1 1 Encounter Details Date Type Department Care Team Description 11/23/2021 Ancillary Procedure RC Radiology PACS Provider, Foreign [address] [place] [address] [address] [place] [address] Social History Tobacco Use Types Packs/Day Years [...] 06/15/2022 Appointment Orthopedics Vanna Ulloa MD [address] [place], [place] [address] (Wo rk) documented as of this encounter Procedures Procedure Name Priority Date/Time Associated Diagnosis Comme nts FOREIGN IMAGE(S) XR Routine 11/23/2021 2:45 PM Re sults for this ELBOW LT CDT procedure are i n the results section. documented in this encounter Results Foreign Image(S) XR Elbow Lt (11/23/2021 2:45 PM CDT) Specimen (Source) Anatomical Location Collection Method / Collectio n Time Received Time / Laterality Volume Narrative POCT - 11/24/2021 1:09 PM CDT These outside images have been uploaded into PACS. If the results were provided, they will be located in the erwin mai's chart under the Media or Imaging tab. Foreign Images Provider RAD NON-REPORTABLES Performing Organization Address City/State/ZIP Code Phon e Number POCT documented in this encounter Visit Diagnoses Not on filedocumented in this encounter Care Teams Penciller Relationship Specialty Start Date End Date Sonia Pérez PA-C PCP - General Physician Director Quality Systems 01/10/[address] [address] documented as of this encounter
--- OUTSIDE RECORDS SUMMARY | 2022-04-22 14:00 | XMS_ITS | Encounter Summary ---
:1965 Author Organization [facility] Address [address] [place] [address] Care Team Providers Name Role Phone Mel Antoinette Serrano APRN, TOW TRUCK DISPATCHER Primary Care Provider Reason for Visit Reason Onset Date Comments Post-Op Problem 11/01/2016 Encounter Details Date Type Department Care Team Description 11/01/2016 Telephone 365webcall 1514 Andrey Steele MD Post-Op Problem Surgery 1415 [facility] 1515 [facility] [place] [address] [place] [address] [phone] Social History Tobacco Use Types Packs/Day Years Used Date Smoking Tobacco: Former Smokeless Tobacco: Never Comments: Quit smoking: Alcohol Use Standard Drinks/Week Comments Yes 0 (1 standard drink = 0.6 oz pure Alcoho lic Drinks/day: Amount:1-2 alcohol) drinks; Freq:2-4/Tue ; Sex Assigned at Date Recorded Not on file documented as of this encounter Nursing Notes Jessica Byrne RN - 11/02/2016 4:27 PM CDT Called pt. And spoke with Liz Magana's re: negative c. Diff results. For diarrhea can try Imodium OTC per Dr. Booth if persists should see us in clinic on . He states diarrhea is improving and believes she is over the worse, but will call if symptoms change. Jessica Byrne RN - 11/01/2016 2:41 PM CDT Liz calling in and states after post-op appt. Last she has developed pain and diarrhea. Anytime she eats or drinks has diarrhea. Per Dr. Booth check c.diff. Called Liz to come to lab and we would call with results and further recommendation. Try to stay hydrated has been drinking water and gatorade. documented in this encounter Plan of Treatment Upcoming Encounters Date Type Specialty Care Team Description 06/15/2022 Appointment Orthopedics Vanna Ulloa MD [address] [place] [address] (Wo rk) documented as of this encounter Results C.Difficile Toxin, PCR-Outpatient, (11/01/2016 3:40 PM CDT) P athologist Signature C. Difficile Negative Negative PN SOFT by PCR Comment: Performed at [facility] , [address] [place] [address] CLIA Number [id number] Specimen Anatomical Collection Method Collection Time Receive d Time (Source) Location / / Volume Laterality 11/01/2016 3:40 PM 7 9:20 CDT PM CDT Jelani Booth MD LAB_1 Performing Organization Address City/State/ZIP Code Phon e Number PN SOFT [address] [place] [address] documented in this encounter Visit Diagnoses Diagnosis S/P laparoscopic cholecystectomy - Prima ry Other postprocedural status documented in this encounter Care Teams Animal Technician Relationship Specialty Start Date End Date Antoinette Leal, QUALITY ASSURANCE TECH, TOW TRUCK DISPATCHER PCP - General 04/15/14 01/09/17 1415 [place], [place] [id number] documented as of this encounter
--- OUTSIDE RECORDS SUMMARY | 2022-04-22 14:00 | XMS_ITS | Encounter Summary ---
:1965 Author Organization [facility] Address [address] [place] [address] Care Team Providers Name Role Phone Sonia Pérez PA-C Primary Care Provider Reason for Visit Procedure/Equipment (Routine) - Incomplete Specialty Diagnoses / Procedures Referred By Contact Refer red To Contact Procedures Provider, Foreign Images Foreign Image(S) XR Elbow Lt [address] [place] [address] Referral ID Status Reason Start Date Expiration Date Visits V isits Requested Authorized [id number] Incomplete 11/24/2021 02/23/2023 1 1 Encounter Details Date Type Department Care Team Description 11/17/2021 Ancillary Procedure [facility] Radiology PACS Provider, Foreign [address] [place] [address] [address] [place] [address] Social History Tobacco Use Types Packs/Day Years [...] 06/15/2022 Appointment Orthopedics Vanna Ulloa MD [address] [place], [place] [address] (Wo rk) documented as of this encounter Procedures Procedure Name Priority Date/Time Associated Diagnosis Comme nts FOREIGN IMAGE(S) XR Routine 11/17/2021 6:10 PM Re sults for this ELBOW LT CDT procedure are i n the results section. documented in this encounter Results Foreign Image(S) XR Elbow Lt (11/17/2021 6:10 PM CDT) Specimen (Source) Anatomical Location Collection Method / Collectio n Time Received Time / Laterality Volume Narrative POCT - 11/24/2021 1:09 PM CDT These outside images have been uploaded into PACS. If the results were provided, they will be located in the ewrin mai's chart under the Media or Imaging tab. Foreign Images Provider RAD NON-REPORTABLES Performing Organization Address City/State/ZIP Code Phon e Number POCT documented in this encounter Visit Diagnoses Not on filedocumented in this encounter Care Teams Track Layer Head Relationship Specialty Start Date End Date Sonia Pérez PA-C PCP - General Physician Director Of Securities And Real Estate 01/10/[address] [address] documented as of this encounter
--- OUTSIDE RECORDS SUMMARY | 2022-04-22 14:00 | XMS_ITS | Encounter Summary ---
:1965 [facility] Address [address] [place] [address] Care Team Providers Name Role Phone Antoinette Leal APRN, BARREL INSPECTOR TIGHT Primary Care Provider Reason for Visit Procedure/Equipment (Routine) - Incomplete Specialty Diagnoses / Procedures Referred By Contact Refer red To Contact Procedures Provider, Foreign Images Foreign Image(S) XR [address] [place] [address] Referral ID Status Reason Start Date Expiration Date Visits V isits Requested Authorized [id number] Incomplete 10/27/2016 01/26/2018 1 1 Encounter Details Date Type Department Care Team Description 10/27/2016 Imaging P3930 RADIOLOGY CENTRAL FILM Pro vider, Foreign Images LIBRARY [address] [place] [address] [facility] [place] [address] [place] [address] Social History Tobacco Use Types Packs/Day Years [...] Appointment Orthopedics Vanna Ulloa MD [address] [place] [address] (Wo rk) documented as of this encounter Procedures Procedure Name Priority Date/Time Associated Diagnosis Comme nts FOREIGN IMAGE(S) XR Routine 10/27/2016 11:00 AM R esults for this EXTREMITY RT CDT procedure are i n the results section. documented in this encounter Results Foreign Image(S) XR Extremity Rt (10/27/2016 11:00 AM CDT) Specimen (Source) Anatomical Location Collection Method / Collectio n Time Received Time / Laterality Volume Narrative PN POCT - 10/27/2016 10:58 AM CDT These outside images have been uploaded into PACS. If the results were provided, they will be located on the Me nasrin tab in the patient's chart. Foreign Images Provider RAD NON-REPORTABLES Performing Organization Address City/State/ZIP Code Phon e Number POCT PN POCT documented in this encounter Visit Diagnoses Not on filedocumented in this encounter Care Teams Detail Manager Relationship Specialty Start Date End Date Antoinette Leal, FILM CASTING OPERATOR, BARREL INSPECTOR TIGHT PCP - General 04/15/14 01/09/17 1415 [facility] [place] [address] documented as of this encounter
--- OUTSIDE RECORDS SUMMARY | 2022-04-22 14:00 | XMS_ITS | Encounter Summary ---
:1965 Author Organization [facility] Address [address] [place] [address] Care Team Providers Name Role Phone Sonia Pérez PA-C Primary Care Provider Encounter Details Date Type Department Care Team Description 01/15/2021 Lab Visit [facility] Contact with and [address] [address] (suspected) [place] [address] covid-19 Social History Tobacco Use Types Packs/Day Years [...] 06/15/2022 Appointment Orthopedics Vanna Ulloa MD [address] [place], [place] [address] (Wo rk) documented as of this encounter Procedures Procedure Name Priority Date/Time Associated Comments Diagnosis 2019 NOVEL Routine 01/15/2021 11:08 Contact with and Results for this CORONAVIRUS AM CDT (suspected) procedure are i n exposure to the results covid-19 section. documented in this encounter Results Asymptomatic - 2019 Novel Coronavirus (COVID-19) (01/15/2021 11:08 AM CDT) [facility] Method Time Signature COVID-19 Not Not 01/16/2021 Fitfully Interpretation Detected Detected 7:39 AM CENTRAL LAB CDT Source Nares, left 01/16/2021 CONFUCIANIST and right 7:39 AM LABORATORY CDT Specimen Anatomical Collection Method Collection Time Receive d Time (Source) Location / / Volume Laterality Swab (Source ENTIRE ANTERIOR Non-blood 01/15/2021 11:08 01/16/20 21 Required) NARIS / Unknown Collection / AM CDT 11:08 AM CDT Unknown Narrative [facility] - 01/16/2021 7:39 AM CDT Test performed by Employment Security Officer Mediated Amplification. TMA has been shown to be equivalent to commercial real-time PCR t ests. This test has been authorized by the FDA under an Emergency Use Authorization (EUA) for use by authorized laboratories. Sonia Pérez PA-C LAB_1 Performing Organization Address City/State/ZIP Code Phon e Number [facility] [address] [id number] [facility] [address] [place] [address] documented in this encounter Visit Diagnoses Diagnosis Contact with and (suspected) exposure to covid-19 documented in this encounter Care Teams Ditcher Relationship Specialty Start Date End Date Sonia Pérez PA-C PCP - General Physician Asian Studies Program Chair 01/10/17 1601 [facility] 100 [place] [address] documented as of this encounter
--- OUTSIDE RECORDS SUMMARY | 2022-04-22 14:00 | XMS_ITS | Encounter Summary ---
:1965 Author [facility] Address [address] [place] [address] Care Team Providers Name Role Phone Antoinette Leal APRN, COORDINATOR VOLUNTEER SERVICES Primary Care Provider Reason for Visit Reason Onset Date Comments PHQ9 08/17/2016 Encounter Details Date Type Department Care Team Description 08/17/2016 Telephone [facility] Antoinette Leal APRN, PHQ9 [facility] COORDINATOR [place] [address] 1415 [facility] [phone] [place], [place] [address] (Wo rk) Social History Tobacco Use Types Packs/Day Years Used Date Smoking Tobacco: Former Smokeless Tobacco: Never Comments: Quit smoking: Alcohol Use Standard Drinks/Week Comments Yes 0 (1 standard drink = 0.6 oz pure Alcoho lic Drinks/day: Amount:1-2 alcohol) drinks; Freq:2- ; Sex Assigned at Date Recorded Not on file documented as of this encounter Nursing Notes Mamta Arambula LPN - 08/17/2016 11:32 AM CDT [id number] [id number] if no answer transfer to triage pt needs an updated PHQ9 documented in this encounter Plan of Treatment Upcoming Encounters Date Type Specialty Care Team Description 06/15/2022 Appointment Orthopedics Vanna Ulloa MD 8[address] [facility] [place] [address] (Wo rk) documented as of this encounter Visit Diagnoses Not on filedocumented in this encounter Care Teams Sander Machine Relationship Specialty Start Date End Date Antoinette Leal, WEATHERIZATION COORDINATOR, COORDINATOR VOLUNTEER SERVICES PCP - General 04/15/14 01/09/17 1415 [facility] [place] [address] documented as of this encounter
--- OUTSIDE RECORDS SUMMARY | 2022-04-22 14:00 | XMS_ITS | Encounter Summary ---
:1965 Author Organization [facility] Address [address] [address] Care Team Providers Name Role Phone Sonia Pérez PA-C Primary Care Provider Reason for Visit Reason Comments COVID Test Results Encounter Details Date Type Department Care Team Description 01/16/2021 Telephone [facility] Medic [facility] Sonia Pérez PA-C COVID Test Results [address] [place] [address] [facility] 100 [place], [place] [address] (Wo rk) Social History Tobacco Use Types Packs/Day Years Used Date Smoking Tobacco: Former Smokeless Tobacco: Never Comments: Quit smoking: Alcohol Use Standard Drinks/Week Comments Yes 0 (1 standard drink = 0.6 oz pure Alcoho lic Drinks/day: Amount:1-2 alcohol) drinks; Freq:-4/Tue ; Sex Assigned at Date Recorded Not on file documented as of this encounter Nursing Notes Amauri Monahan RN - 01/16/2021 11:54 AM CDT Patient was notified that COVID-19 testing was negative. is positive for COVID, tested on 01-11-21. Liz developed sx 01-06-21. Chills, muscle aches, headaches, stomachaches, vomiting, diarrhea.Feeling cold/hot. Temp is normal. Has had COVID vaccine. She was seen in ED on 01-07-21 and they didn't do a COVID test. Advised to contact her PCP through [employer] for an apponitment if her sx are not resolving. She stated they couldn't get her an appointment until 01-30-21. Did suggest she be seen in [facility]. Patient then hung up on me. Patient does have symptoms. See above Patient was given and able to verbalize home isolation instructions for patients that have tested negative for COVID and do not have symptoms. Average symptom onset is 5-7 days after exposure, but can occur anytime between 2-14 days. If you are fully vaccinated after receiving a COVID-19 vaccine and were exposed to someone with COVID-19, you do not need to quarantine if ALL of the following are true: - You???ve completed two doses of a two-dose vaccine series (Moderna or Expanite), or one dose of a one-dose series ([facility]) - The COVID-19 exposure happened at least 14 days since you completed the vaccine series - You don???t currently have any symptoms of COVID-19 If you have recovered from COVID-19 in the past 90 days and were exposed to someone with COVID-19, you do not need to quarantine if ALL of the following are true: - Your illness was confirmed with a positive lab test in the past 90 days - You have fully recovered You do not currently have any symptoms of COVID-19. If you are not fully vaccinated from COVID-19 and you know you were exposed to someone with COVID-19, quarantine period is:. ??? 14 days for individuals who: o Were exposed at home. o Live in congregate living such as machine long goods helper care facilities, prisons, or shelters. o Work in healthcare, machine long goods helper care, or corrections. ??? For all other individuals, quarantine may be shortened as follows: o Quarantine for 10 days from last exposure date. o Quarantine for 7 days from last exposure date only with a negative COVID-19 test, happening at least 5 full days after last exposure. Individuals awaiting test results should not end quarantine. o These individuals should continue to monitor for symptoms for a full 14 days after last exposure date, even when the quarantine has ended. If any or your family members have been on home quarantine, awaiting your result, they can stop their quarantine at this time if they have not developed symptoms. Additional Information: ??? If you develop symptoms call your PCP or complete a visit at [facility]. ??? If you develop shortness of breath or difficulties breathing, you should seek prompt medical attention. ??? Before returning to work, you must contact your employer for return to work instructions. ??? Your best protection from COVID-19 and the best way to stop the spread of illness continues to be: practice good hygiene like hand washing often, cover coughs and sneezes, clean and disinfect frequently touched surfaces, and social distancing. Does patient have any questions? No If the patient needs documentation of their results, a printout is available on [employer] or a letter has been sent via mail (if inactive on [employer]). Amauri Monahan RN 01/16/2021, 11:54 AM documented in this encounter Plan of Treatment Upcoming Encounters Date Type Specialty Care Team Description 06/15/2022 Appointment Orthopedics Vanna Ulloa MD [address] [place], [place] [address] (Wo rk) documented as of this encounter Visit Diagnoses Not on filedocumented in this encounter Care Teams Community Association Manager Relationship Specialty Start Date End Date Sonia Pérez PA-C PCP - General Physician Reel Cutter 01/10/17 1601 [facility] 100 [place], [place] [phone] documented as of this encounter
--- OUTSIDE RECORDS SUMMARY | 2022-04-22 14:00 | XMS_ITS | Encounter Summary ---
:1965 [facility] Address [address] [place] [address] Care Team Providers Name Role Phone Sonia Pérez PA-C Primary Care Provider Reason for Visit Procedure/Equipment (Routine) - Incomplete Specialty Diagnoses / Procedures Referred By Contact Refer red To Contact Diagnoses Left elbow pain Cain Albrecht MD Procedures XR Elbow Lt 3+ Views 8100 [facility] [place] [address] Referral ID Status Reason Start Date Expiration Date Visits V isits Requested Authorized [id number] Incomplete 11/17/2021 02/16/2023 1 1 Encounter Details Date Type Department Care Team Description 11/17/2021 Ancillary Procedure [facility] Cain Albrecht, Left elbow pain 8100 [facility] [place], [place] 8100 [facility] jerald [address] [facility] [place] [phone] (Wo rk) Social History Tobacco Use Types [...] 06/15/2022 Appointment Orthopedics Vanna Ulloa MD 8100 [facility] [place] [address] (Wo rk) documented as of this encounter Procedures Procedure Name Priority Date/Time Associated Diagnosis Comme nts XR ELBOW LT 3+ Routine 11/17/2021 1:45 PM Left elbow pain Resu lts for this VIEWS CDT procedure are i n the results section. documented in this encounter Results XR Elbow Lt 3+ Views (11/17/2021 1:45 PM CDT) Anatomical Region Laterality Modality Upper Extremity, Elbow Digital Radiograp hy Specimen (Source) Anatomical Collection Method Collection Time Re ceived Time Location / / Volume Laterality 11/17/2021 1:37 PM CDT Impressions 11/17/2021 1:53 PM CDT COMPARISON: ??None. FINDINGS: ??The olecranon and radial hea d are dislocated dorsally. Cortical irregularity along the ulnar aspect of the trochlea suggestive of nondisplaced fracture. Post reduction films recommended. Procedure Note Heri Bradley MD - 11/17/2021Fo rmatting of this note might be different from the original. IMPRESSION COMPARISON: None. FINDINGS: The olecranon and radial head are dislocated dorsally. Cortical irregularity along the ulnar aspect of the trochlea suggestive of nondisplaced fracture. Post reduction films recommended. Cain Albrecht MD RAD GD documented in this encounter Visit Diagnoses Diagnosis Left elbow pain Pain in joint, upper arm documented in this encounter Care Teams Parachute Harness Rigger Relationship Specialty Start Date End Date Sonia Pérez PA-C PCP - General Physician Casino Cashier 01/10/17 1601 [facility] [place] [address] [place] [address] documented as of this encounter
--- OUTSIDE RECORDS SUMMARY | 2022-04-22 14:00 | XMS_ITS | Encounter Summary ---
:1965 Author Organization [facility] Address [address] [place] [address] Care Team Providers Name Role Phone Antoinette Leal APRN, MAGED Primary Care Provider Reason for Visit Reason Onset Date Comments Appt. Needed 01/03/2017 Encounter Details Date Type Department Care Team Description 01/03/2017 Telephone [facility] Antoinette Leal APRN, Appt. Needed [address] PACKAGER [place] [address] 1415 [facility] [phone] [place], [place] [address] (Wo rk) Social History Tobacco Use Types Packs/Day Years Used Date Smoking Tobacco: Former Smokeless Tobacco: Never Comments: Quit smoking: Alcohol Use Standard Drinks/Week Comments Yes 0 (1 standard drink = 0.6 oz pure Alcoho lic Drinks/day: Amount:1-2 alcohol) drinks; Freq:2- ; Sex Assigned at Date Recorded Not on file documented as of this encounter Nursing Notes Antoinette Leal APRN, CNP - 01/05/2017 8:35 AM CDT Noted, thanks. Sofy Gabriel LPN - 01/05/2017 8:03 AM CDT Pt is seeing a provider through [employer] Antoinette Leal APRN, MAGED - 01/03/2017 9:52 PM CDT Please call patient and see if she will schedule DM visit, overdue, last seen Feb 2016. Thanks. documented in this encounter Plan of Treatment Upcoming Encounters Date Type Specialty Care Team Description 06/15/2022 Appointment Orthopedics Vanna Ulloa MD 8100 [facility] [place] [id number] (Wo rk) documented as of this encounter Visit Diagnoses Not on filedocumented in this encounter Care Teams Compass Operator Relationship Specialty Start Date End Date Antoinette Leal APRN, MAGED PCP - General 04/15/14 01/09/17 [facility] [place] [address] documented as of this encounter
--- OUTSIDE RECORDS SUMMARY | 2022-04-22 14:00 | XMS_ITS | Encounter Summary ---
:[address] [facility] Address [address] [place] [address] Care Team Providers Name Role Phone Antoinette Leal APRN, MAGED Primary Care Provider Encounter Details Date Type Department Care Team Description 11/01/2016 Lab Visit [place] [facility] S/P laparoscopic [address] [place] [address] Social History Tobacco Use Types Packs/Day Years [...] 06/15/2022 Appointment Orthopedics Vanna Ulloa MD [address] [place], [place] [address] (Wo rk) documented as of this encounter Procedures Procedure Name Priority Date/Time Associated Diagnosis Comme nts C.DIFFICILE Routine 11/01/2016 3:40 PM S/P laparoscopic Resul ts for this TOXIN,PCR-OUTPATIE CDT cholecystectomy proced ure are in NT the results section. documented in this encounter Results C.Difficile Toxin, PCR-Outpatient, (11/01/2016 3:40 PM CDT) P athologist Signature C. Difficile Negative Negative PN SOFT by PCR Comment: Performed at [facility] , [address] [place] [address] CLIA Number [id number] Specimen Anatomical Collection Method Collection Time Receive d Time (Source) Location / / Volume Laterality 11/01/2016 3:40 PM 7 9:20 CDT PM CDT Jelani Booth MD LAB_1 Performing Organization Address City/State/ZIP Code Phon e Number PN SOFT [address] [place] [address] [phone] documented in this encounter Visit Diagnoses Diagnosis S/P laparoscopic cholecystectomy Other postprocedural status documented in this encounter Care Teams Planner Relationship Specialty Start Date End Date Antoinette Leal, SPORTSPERSONS, WEB CONTENT WRITER PCP - General 04/15/14 01/09/17 1415 [facility] [place] [id number] documented as of this encounter
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
--- OUTSIDE RECORDS SUMMARY | 2022-04-22 14:00 | XMS_ITS | Encounter Summary ---
:1965 Author Organization [facility] Address [address] [place] [address] Care Team Providers Name Role Phone Antoinette Leal APRN, CALLISTHENICS INSTRUCTOR Primary Care Provider Encounter Details Date Type Department Care Team Description 11/02/2016 ER Follow Up [facility]line Carla Zelaya RN [address] [place], [place] [address] [place] [address] [phone] Social History Tobacco Use Types Packs/Day Years Used Date Smoking Tobacco: Former Smokeless Tobacco: Never Comments: Quit smoking: Alcohol Use Standard Drinks/Week Comments Yes 0 (1 standard drink = 0.6 oz pure Alcoho lic Drinks/day: Amount:1-2 alcohol) drinks; Freq:2-4/Tue ; Sex Assigned at Date Recorded Not on file documented as of this encounter Progress Notes Carla Zelaya RN - 11/02/2016 3:05 PM CDT ER Follow up call: Contacted member RE: f/u of ER Visit dated 10/01/2016. Mbr indicates that her PCP ordered a function test. It was determined she had gallbladder problems. She had her gall bladder removed and has been feeling much better. She does not have the nausea and vomiting any longer. Discussed current knowledge of [facility] and of PCP/UC vs ER use. Reports chose the ER rather than PCP or UC because of the sx's she had she was looking for relief and happened to be the time of the day. Has PCP. Discussed importance of PCP for health maintenance and management. Is aware of Urgent Care location. Aware of [facility]. She has heard of [employer] [facility]. Carla Zelaya RN 11/02/2016, 3:05 PM documented in this encounter Plan of Treatment Upcoming Encounters Date Type Specialty Care Team Description 06/15/2022 Appointment Orthopedics Vanna Ulloa MD [address] [facility] [place] [address] (Wo rk) documented as of this encounter Visit Diagnoses Not on filedocumented in this encounter Care Teams Tile And Marble Installer Relationship Specialty Start Date End Date Antoinette Leal APRN, CALLISTHENICS INSTRUCTOR PCP - General 04/15/14 01/09/17 [address] [place] [address] documented as of this encounter
--- OUTSIDE RECORDS SUMMARY | 2022-04-22 14:00 | XMS_ITS | Encounter Summary ---
:1965 Author [facility] Address [address] [place] [address] Care Team Providers Name Role Phone Antoinette Leal APRN, WORKERS COMPENSATION ADJUSTER Primary Care Provider Encounter Details Date Type Department Care Team Description 10/05/2016 ER Follow Up Careline Carla Zelaya RN [address] [place], [place] [address] [place] [address] [phone] Social History Tobacco Use Types Packs/Day Years Used Date Smoking Tobacco: Former Smokeless Tobacco: Never Comments: Quit smoking: Alcohol Use Standard Drinks/Week Comments Yes 0 (1 standard drink = 0.6 oz pure Alcoho lic Drinks/day: Amount:1-2 alcohol) drinks; Freq:2-/Tue ; Sex Assigned at Date Recorded Not on file documented as of this encounter Progress Notes Carla Zelaya RN - 10/05/2016 12:10 PM CDT ER Follow up call: Contacted member RE: f/u of ER Visit dated 08/30/2016. [place] verified her , address, phone #. Monroe voiced some concerns giving out personal information because she has gotten a coupleof calls that did not board turner good and they had asked for personal info. She did cooperate however and did respond to the questions given to her. Discussed current knowledge of [facility] and of PCP/UC vs ER use. Reports chose the ER rather than PCP or UC because she thought ER was only place that could tx her condition. Has PCP. Discussed importance of PCP for health maintenance and management. Is aware of Urgent Care location. Aware of [facility]. Discussed [facility] and gave contact information. Encouraged to call the [facility] with medical concerns when unable to get in touch with PCP. Mbr had heardof [facility]. Carla Zelaya, DEBI 10/05/2016, 12:10 PM documented in this encounter Plan of Treatment Upcoming Encounters Date Type Specialty Care Team Description 06/15/2022 Appointment Orthopedics Vanna Ulloa MD [address] [facility] [place] [id number] (Wo rk) documented as of this encounter Visit Diagnoses Not on filedocumented in this encounter Care Teams Outcomes Specialist Relationship Specialty Start Date End Date Antoinette Leal, AUTOMOTIVE SERVICE MANAGEMENT TEACHER, WORKERS COMPENSATION ADJUSTER PCP - General 04/15/14 01/09/17 [address] [place] [address] documented as of this encounter
--- OUTSIDE RECORDS SUMMARY | 2022-04-22 14:01 | XMS_ITS | Encounter Summary ---
:1965 Author Organization [facility] Address [address] [place] [address] Care Team Providers Name Role Phone Antoinette Leal APRN, MAGED Primary Care Provider Reason for Visit Reason Onset Date Comments Medication Request 04/02/2016 Encounter Details Date Type Department Care Team Description 04/02/2016 Telephone [facility] Antoinette Leal, Medication Request [address] [place] [address] [address] [facility] [phone] [place], [place] [address] (Wo rk) Social History Tobacco Use Types Packs/Day Years Used Date Smoking Tobacco: Former Smokeless Tobacco: Never Comments: Quit smoking: Alcohol Use Standard Drinks/Week Comments Yes 0 (1 standard drink = 0.6 oz pure Alcoho lic Drinks/day: Amount:1-2 alcohol) drinks; Freq:2-4/Tue ; Sex Assigned at Date Recorded Not on file documented as of this encounter Nursing Notes Margret Fox - 04/02/2016 1:33 PM CST Left a message that Rx was sent to pharmacy. Ext [phone] RED LIQUID PLASTIC APPLIER Antoinette Leal, MAGED SHORE - 04/02/2016 12:20 PM CST This is sent. Please let her know. RED LIQUID PLASTIC APPLIER Rosalinda Thomas - 04/02/2016 10:06 AM CST Pt stopped by office to let Deepa Leal know that she did get a yeast infection from the Medication. She said that Deepa Leal said if she did get one to let her know. Pt would like Rx sent to [facility] in [place]. RED LIQUID PLASTIC APPLIER documented in this encounter Plan of Treatment Upcoming Encounters Date Type Specialty Care Team Description 06/15/2022 Appointment Orthopedics Vanna Ulloa MD [address] [facility] [place] [address] (Wo rk) documented as of this encounter Visit Diagnoses Not on filedocumented in this encounter Care Teams Top Lift And Automatic Window Repairer Relationship Specialty Start Date End Date Antoinette Leal APRN, SPEECH THERAPIST PCP - General 04/15/14 01/09/17 [address] [facility] [place] [id number] documented as of this encounter
--- OUTSIDE RECORDS SUMMARY | 2022-04-22 14:01 | XMS_ITS | Encounter Summary ---
:1965 Author Organization [facility] Address [address] [place] [address] Care Team Providers Name Role Phone Antoinette Leal APRN, CNP Primary Care Provider Reason for Visit Reason Comments Diabetes Encounter Details Date Type Department Care Team Description 12/01/2015 Office Visit Antoinette Daugherty, Type 2 d iabetes mellitus, controlled ([facility]) (Primary Dx); Medicine MAGED SHORE Peripheral polyneuropathy; [address] Hyperlip idemia, unspecified hyperlipidemia type; [address] Essential hypertension; [place] [address] [place] Morbid obesity with BMI of 4 0.0-44.9, adult ([facility]); [phone] [id number] Amenorrhea Social History Tobacco Use Types Packs/Day Years Used Date Smoking Tobacco: Never Assessed Sex Assigned at Date Recorded Not on file documented as of this encounter Last Filed Vital Signs Vital Sign Reading Time Taken Comments Blood Pressure 130/88 12/01/2015 11:55 AM CDT Pulse 96 12/01/2015 11:34 AM CDT Temperature - - Respiratory Rate - - Oxygen Saturation - - Inhaled Oxygen Concentration - - Weight 103.9 kg (229 lb) 12/01/2015 11:34 AM CDT Height - - Body Mass Index 37.7 01/22/2015 1:16 PM CDT documented in this encounter Progress Notes Antoinette Leal APRN, CNP - 12/01/2015 1:38 PM CDT SUBJECTIVE: Liz Phelps is a 50 y.o. female here for diabetes check. She has had increased stress as her lost his job last week. This has caused some financial distress. She does have a history of depression, follows at [facility], feels this is well controlled witheffexor XR and trazodone PRN for insomnia. No SI/HI. Her provider there has requested she be tested to see if she is postmenopausal. It has been almost a year since her last cycle. She is also on depo provera. Aspirin:Continues to take aspirin daily. No stomach pains, no black or tarry stools. Blood pressure:Patient has been checking blood pressures at home. Home blood pressures are at goal. Patient did not bring in outside blood pressure records. Blood sugars: Patient has been checking blood sugars. Blood sugars have been at goal. She had one reading of 88 when she felt hypoglycemic but this resolved quickly, no other concerns. Cholesterol: Lipids have been at goal. No muscle aches or pains. She is on a statin and tolerates this. Tobacco: Patient reports that she has quit smoking. She has never used smokeless tobacco. Eye exam: Patient is up-to-date with eye exam. Foot exam: She is also reporting some increased tingling in her feet and hands. This is generally mild but worsens throughout the day and if she rides her motorcycle for a long time. Kidney health: does not have a history of nephropathy. No burning or pain with urination, no polyuria or polydipsia. Review of systems: See Above Medications: Reviewed and updated Outpatient Prescriptions Prior to Visit Medication Sig Dispense Refill ??? ACCU-CHEK FARTUN PLUS GLUCOSE METER Use as instructed as needed for High Blood Sugar. 1 kit 0 ??? ACCU-CHEK FARTUN PLUS TEST STRIPS Use 1 strip as instructed 3 times daily (before meals). 100 strip PRN ??? ACCU-CHEK SOFTCLIX LANCETS Use as instructed 3 times daily. 100 each PRN ??? aspirin EC 81 mg EC tablet Take 1 tablet by mouth daily (every 24 hours). 100 tablet 13 ??? atorvastatin (LIPITOR) 20 mg tablet Take 1 tablet by mouth daily (every 24 hours). 90 tablet 3 ??? blood glucose (ONE TOUCH ULTRA) test strip Use 1 strip as instructed 3 times daily. 100 strip 6 ??? cyclobenzaprine (FLEXERIL) 5 mg tablet Take 1 tablet by mouth 3 times daily as needed for Musclespasms. 30 tablet 0 ??? dulaglutide (TRULICITY) 0.75 mg/0.5 mL PnIj Inject 0.75 mg subcutaneously once a week. 4 Pen 2 ??? fluticasone (FLONASE) 50 mcg/actuation nasal spray Place 1-2 sprays into each nostril daily (every 24 hours). 16 g 3 ??? insulin pen needles (BD ULTRAFINE JUHI) 32 gauge x 5/32 Inject 2 [place] subcutaneously daily (every 24 hours). 200 each 3 ??? lisinopril (PRINIVIL, ZESTRIL) 20 mg tablet Take 1 tablet by mouth daily (every 24 hours). 90 tablet 1 ??? metFORMIN (GLUCOPHAGE-XR) 500 mg XR 24 hour tablet Take 3 tablets by mouth daily (every 24 hours). 270 tablet 1 ??? multivitamin (THERAGRAN) tablet Take 1 tablet by mouth daily (every 24 hours). 100 ??? [place]-3 Fatty Acids Cap daily (every 24 hours). ??? Omeprazole Magnesium (PRILOSEC OTC) 20 mg tablet Take 1 tablet by mouth daily (every 24 hours). LW Comment:flex spending account LW Addl Instr:Indicated for: Acid Reflux 90 3 ??? TOUJEO SOLOSTAR 300 unit/mL (1.5 mL) pen USE 24 UNITS SUBCUTANEOUSLY DAILY -- ADD 2 UNITS FOR PRIMING (TOTAL DAILY DOSE OF 26 UNITS) 9 mL 0 ??? traZODone (DESYREL) 50 mg tablet Take 1-2 tablets by mouth at bedtime as needed for Sleep. 30 tablet 2 ??? venlafaxine (EFFEXOR-XR) 75 mg 24 hr capsule Take 1 capsule by mouth daily (every 24 hours). No facility-administered medications prior to visit. Adverse Drug Reactions: Allergies Allergen Reactions ??? Bydureon [Exenatide Microspheres] Other (See Comments) local site reaction of skin breakdown, severe itching, and pain. OBJECTIVE: Vital Signs: BP 130/88 mmHg Pulse 96 Wt 229 lb (103.874 kg) General: Alert, Oriented, NAD Head: Normocephalic. Eyes: PERRLA, full EOM. External exams normal. No lymphadenopathy. No thyromegaly. Nose: Patent, without deformity. Throat: Moist mucous membranes without lesions, erythema, or exudate. Heart: RR without murmurs, rubs, or gallops. Respiratory: Normal respiratory effort. Lungs are clear with good breath sounds. Abdomen: The abdomen was flat, soft and nontender without guarding rebound or masses. Positive bowelsounds. Feet: Normal exam: no sores, no swelling, no edema and Monofilament exam of the feet is within normal limits Skin: No rash. Neuro: Grossly non-focal. Labs: Lab Results Component Value Date MICROALBUR <6.0 01/22/2015 CREA 1.0 01/22/2015 Lab Results Component Value Date CHOLESTEROL 166 01/22/2015 HDL 34* 01/22/2015 LDL 60 01/22/2015 TRIGLYCERIDE 359* 01/22/2015 Lab Results Component Value Date ALT 34 02/05/2009 Lab Results Component Value Date/Time HGB A1C 11.0* 04/17/2014 1243 HEMOGLOBIN A1C RAPID 6.4* 05/26/2015 1111 GLYCOSYLATED HEMOGLOBIN A1C 6.3* 12/01/2015 1116 ASSESSMENT: ICD-10-CM 1. Type 2 diabetes mellitus, controlled ([facility]) E11.9 dulaglutide (TRULICITY) 0.75 mg/0.5 mL PnIj insulin glargine (TOUJEO SOLOSTAR) 300 unit/mL (1.5 mL) pen metFORMIN (GLUCOPHAGE-XR) 500 mg XR 24 hour tablet 2. Peripheral polyneuropathy G62.9 gabapentin (NEURONTIN) 300 mg capsule 3. Hyperlipidemia, unspecified hyperlipidemia type E78.5 atorvastatin (LIPITOR) 20 mg tablet 4. Hypertension I10 lisinopril (PRINIVIL, ZESTRIL) 20 mg tablet 5. Morbid obesity with BMI of 40.0-44.9, adult ([facility]) E66.01 Z68.41 6. Amenorrhea N91.2 Follicle Stimulating Hormone PLAN: 1. Continue current medication regimen, A1C is to goal and blood sugars are controlled. Continue to try for weight loss through diet and exercise and weight is actually trending down since starting trulicity. 2. Discussed that symptoms are likely due to peripheral neuropathy. Reviewed diagnosis and management options. Will try low dose of gabapentin in the evenings. Reviewed med profile and possible side effects. She will let me know how this is going and if she would like to increase this. 3. Continue statin, she tolerates this well. 4. Continue lisinopril, BP well-controlled. 5. As above. 6. Check FSH per her request. The patient was discharged ambulatory and in stable condition. Diabetes measures: A1c Due: 6 months Foot Exam: yearly Eye exam: yearly Cholesterol: yearly Electrolytes: yearly UMAR: yearly Aspirin: yes Tobacco: no documented in this encounter Plan of Treatment Upcoming Encounters Date Type Specialty Care Team Description 06/15/2022 Appointment Orthopedics Vanna Ulloa MD [address] [facility] [place] [id number] (Wo rk) documented as of this encounter Visit Diagnoses Diagnosis Type 2 diabetes mellitus, controlled ([facility]) - Primary Type II or unspecified type diabetes amy litus without mention of complication, not stated as uncontrolled Peripheral polyneuropathy Unspecified hereditary and idiopathic pe ripheral neuropathy Hyperlipidemia, unspecified hyperlipidem ia type ([facility]) Essential hypertension ([facility]) Unspecified essential hypertension Morbid obesity with BMI of 40.0-44.9, ad ult ([facility]) Amenorrhea Absence of menstruation documented in this encounter Care Teams Ambulance Attendant Relationship Specialty Start Date End Date Antoinette Leal APRN, FIELD AUDITOR PCP - General 04/15/14 01/09/17 [facility] [place] [id number] documented as of this encounter
--- OUTSIDE RECORDS SUMMARY | 2022-04-22 14:01 | XMS_ITS | Encounter Summary ---
:1965 Author Organization [facility] Address [address] [place] [address] Care Team Providers Name Role Phone Juana Leal APRN, MAGED Primary Care Provider Reason for Visit Reason Comments Refill Encounter Details Date Type Department Care Team Description 08/22/2015 [facility] Juana Leal APRN, COMMUNICATION LECTURER Refill [address] [place] [address] [place] [address] [phone] (Wo rk) Social History Tobacco Use Types Packs/Day Years Used Date Smoking Tobacco: Never Assessed Sex Assigned at Date Recorded Not on file documented as of this encounter Nursing Notes User, Refillbe - 08/25/2015 9:05 AM CDT traZODone (DESYREL) 50 mg tablet [Pharmacy Med Name: TRAZODONE HCL 50MG TABS] - MEDICATION STARTED: 05/26/2015 - LAST REFILLED ON: 05/26/2015, QTY: 30, Refills: 1, Sig: take 1-2 tablets by mouth nightly. (changed but equivalent) - WARNING #1: The patient is requesting a renewal from a different pharmacy. - WARNING #2: Due to an unreadable sig, manually ensure the patient is due for a renewal. - REFILL: 12 months (if warnings resolved) - RATIONALE: This refill should last until the patient is due for an office visit. - LAST QUALIFYING VISIT WITH JUANA LEAL N: 07/23/2015 - NEXT SCHEDULED VISIT: None - SBP: 118.0mm Hg on 07/23/2015 - DBP: 86.0mm Hg on 07/23/2015 Powered by [email or web address], Reference: [id number], 08/22/2015 12:03:36 PM CDT, Pool: OTTO REFILL ([id number]) Carmen Padgett RN - 08/24/2015 9:05 PM CDT Further assistance needed to complete refill request Reason: Medication newly ordered within past 12 months. Requesting 90 day supply. Next Steps: Review pended order for accuracy. Sign. Close encounter. Requested Prescriptions Pending Prescriptions Disp Refills ??? traZODone (DESYREL) 50 mg tablet [Pharmacy Med Name: TRAZODONE HCL 50MG TABS] 180 tablet 3 Sig: Take 1-2 tablets by mouth nightly. ANALYST documented in this encounter Miscellaneous Notes Patient Email (Converted) - Tim Bustamante Provider - 08/25/2015 9:07 AM CDT RE:Prescription From User: JUANA LEAL Glad the medication is working. I sent a refill to the pharmacy. Let me know if you need anything else. Continue to follow-up at [facility] for the depression but if this is not working out, let me know. Thanks, Juana Leal CNP 08/25/2015 ----- Message ----- From: LIZ BECK Sent: 08/25/2015 7:49 AM CDT To: Juana Leal APRN, CNP Subject: RE:Prescription Hi...I got in with mental health at [facility], on the other end of the building. We tried Ambion for a while, but I was more active at night while sleeping than during the day and I don't remember it. The Trazodone works most of the time and when it does, I sleep soundly. I have tried not taking it a few times when I'm already tired and I sleep for a couple hours, then I'm up all night and fall asleep during the day or feel exhausted and blah all day. If you could refill it, that would be great. I'm also taking lafaxine 75mg daily, so far that's working pretty good. I did try Lexapro for a couple weeks, but felt like a unick ( which added to the depression...vicious eyak). Have a good day. Liz ----- Message ----- From: Juana Leal APRN, CNP Sent: 08/24/2015 9:28 PM CDT To: Liz Beck Subject: Prescription Liz, I got a refill request for the trazodone. How's it going with this medicaton? How are you feeling in general? Did you get connected with a psychiatrist? Thanks, Juana Leal CNP 08/24/2015 ANALYST documented in this encounter Plan of Treatment Upcoming Encounters Date Type Specialty Care Team Description 06/15/2022 Appointment Orthopedics Vanna Ulloa MD [address] [facility] [place] [id number] (Wo rk) documented as of this encounter Visit Diagnoses Not on filedocumented in this encounter Care Teams Radio Division Captain Relationship Specialty Start Date End Date Juana Leal APRN, COMMUNICATION LECTURER PCP - General 04/15/14 01/09/17 [address] [place] [id number] documented as of this encounter
--- OUTSIDE RECORDS SUMMARY | 2022-04-22 14:01 | XMS_ITS | Encounter Summary ---
:1965 Author Organization [employer] Address [address] [place] [address] Care Team Providers Name Role Phone Antoinette Leal APRN, CNP Primary Care Provider Reason for Visit Reason Comments Annual Exam Encounter Details Date Type Department Care Team Description 03/15/2016 Office Visit Antoinette Daugherty Well dianne lt exam (Primary Dx); Medicine [facility] Controlled type 2 diabetes mellitus with out complication, with long-term current use of insulin (HRC); [address] Essential hypertension; [place] [address] Ave Menorrhagia with regular cycle; [phone] [place] [address] Upper respiratory tract infection, unspe cified type; [phone] Peripheral poly neuropathy; (Work) Rhinitis Chronic; Need for influenza vaccination Social History Tobacco Use Types Packs/Day Years [...] Sign Reading Time Taken Comments Blood Pressure 120/70 03/15/2016 11:35 AM CDT Pulse 80 03/15/2016 11:35 AM CDT Temperature - - Respiratory Rate - - Oxygen Saturation - - Inhaled Oxygen Concentration - - Weight 110.7 kg (244 lb) 03/15/2016 11:35 AM CDT Height 168 cm (5' 6.14) 03/15/2016 11:35 AM CDT Body Mass Index 39.21 03/15/2016 11:35 AM CDT documented in this encounter Progress Notes Antoinette Leal, SILVIANO, KINESIOLOGIST - 03/17/2016 10:34 AM CDT Preventive Exam SUBJECTIVE: Liz Phelps is a 50 y.o. female here for a routine preventive physical exam. Patient voices concerns about: Type 2 DM controlled, last A1C was 6.3 in November. She remains on metformin, toujeo and trulicity. Thisis going well. She has had some fasting blood sugars of 90 and feels slightly lightheaded when this occurs. History of hypertension which is controlled. She is tolerating statin and daily aspirin. She continues to have some neuropathy and is on 800 mg gabapentin at night but has had some tingling in her hands during the day. Nonsmoker. Anxiety/depression. This is treated by psychiatry at [facility]. She changed insurance and had a gap in care and I refilled the effexor XR as well as the trazodone for the next month. She feels stable on this. No SI/HI. No chemical dependency concerns. She has a fair amount of social stress with her not having a steady job. She takes care of their daughter at home who is significantly disabled. Her daughter is scheduled for partial hysterectomy soon as well. URI symptoms x2-3 weeks. She has a cough and sinus congestion. No fevers. No history of asthma. No wheezing or SOB. Nonsmoker. She is on depo provera for menorrhagia. She has had a tubal ligation for contraception. This is going well. Past Medical History: Patient's active medical problems were reviewed and in the Electronic Medical Record. Past Medical History Diagnosis Date ??? Controlled type 2 diabetes mellitus without complication, with long-term current use of insulin (HRC) ??? Unspecified congenital anomaly of heart ??? Irritable bowel syndrome ??? Migraine, unspecified, without mention of intractable migraine without mention of status migrainosus ??? Anxiety (HRC) ??? Depression (HRC) ??? Hypertension (HRC) OB History Para Term AB TAB SAB Ectopic Multiple Living 5 3 2 1 2 2 0 0 Other Medical/Surgical History: Current Medications: Current Outpatient Prescriptions Medication Sig Dispense Refill ??? ACCU-CHEK FARTUN PLUS meter Use as instructed as needed for High Blood Sugar. 1 kit 0 ??? amoxicillin-clavulanate (AUGMENTIN) 875-125 mg per tablet Take 1 Tab by mouth two times a day for 10 days. 20 Tab 0 ??? aspirin EC 81 MG enteric coated tablet Take 1 tablet by mouth daily (every 24 hours). 100 [id number] ??? atorvastatin (LIPITOR) 20 MG tablet Take 1 tablet by mouth daily (every 24 hours). 90 tablet 3 ??? blood glucose (ACCU-CHEK FARTUN PLUS) test strip Use 1 strip as instructed 3 times daily (before meals). 100 strip PRN ??? blood glucose test strip Use 1 strip as instructed 3 times daily. 100 strip 6 ??? cyclobenzaprine (FLEXERIL) 5 MG tablet Take 1 tablet by mouth 3 times daily as needed for Musclespasms. 30 tablet 0 ??? Dulaglutide (TRULICITY) 0.75 MG/0.5ML SOPN Inject 1 Pen subcutaneously once a week. 10 Pen 0 ??? fluticasone (FLONASE) 50 MCG/ACT nasal solution Place 2 Sprays into both nostrils daily. 16 g 3 ??? gabapentin (NEURONTIN) 400 MG capsule Take 400 mg in the morning and 800 mg in the evening. 270 Cap 3 ??? insulin glargine (TOUJEO) 300 UNIT/ML injection Inject 17 Units subcutaneously daily (every 24 hours). 6 mL 1 ??? insulin pen needle (BD ULTRAFINE JUHI) 32G X 4 MM Inject 2 [place] subcutaneously daily (every 24 hours). 200 each 3 ??? lancets (ACCU-CHEK SOFTCLIX) Use as instructed 3 times daily. 100 each PRN ??? lisinopril (ZESTRIL) 20 MG tablet Take 1 tablet by mouth daily (every 24 hours). 90 tablet 1 ??? metFORMIN (GLUCOPHAGE XR) 500 MG 24 hour release tablet Take 3 tablets by mouth daily (every 24 hours). 270 tablet 1 ??? Multiple Vitamins-Minerals (MULTIVITAMIN OR) Take 1 tablet by mouth daily (every 24 hours). 100 ??? omega-3 fatty acids (MAXEPA,FISHOIL) 1000 MG capsule daily (every 24 hours). ??? omeprazole ([employer] OMEPRAZOLE) 20 MG enteric coated tablet Take 1 tablet by mouth daily (every 24 hours). LW Comment:flex spending account LW Addl Instr:Indicated for: Acid Reflux 90 3 ??? traZODone (DESYREL) 50 MG tablet TAKE 1 TO 2 TABLETS BY MOUTH AT BEDTIME NEEDED FOR SLEEP 60 Tab 0 ??? venlafaxine (EFFEXORXR) 75 MG 24 hour release capsule Take 1 Cap by mouth daily. 30 Cap 1 Current Facility-Administered Medications Medication Dose Route Frequency Provider Last Rate Last Dose ??? medroxyPROGESTERone (DEPO-PROVERA) injection 150 mg 150 mg Intramuscular [id number] Antoinette Leal N, CHAIN MENDER, KINESIOLOGIST 150 mg at 03/15/16 1452 Family History Problem Relation Age of Onset ??? Diabetes Mother Type 2 ??? Cancer Mother ??? Diabetes Maternal Grandfather Type 2 ??? Amblyopia/Strabismus Negative Family History ??? Blindness Negative Family History ??? Cataract Negative Family History ??? Glaucoma Negative Family History ??? Hypertension Negative Family History ??? Macular Degeneration Negative Family History ??? Retinal Detachment Negative Family History ??? Amblyopia/Strabismus Negative Family History ??? Stroke Negative Family History ??? Thyroid Disorder Negative Family History ??? Cancer, Breast Negative Family History ??? Cancer, Ovary Negative Family History ??? Alzheimer's Maternal Grandmother ??? Cancer Paternal Grandmother ??? Labor Paternal Grandmother ??? Heart Disease Paternal Grandfather Social History Social History ??? Marital Status: Spouse Name: N/A ??? Number of Children: 2 ??? 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 Smoking status: Former Smoker ??? Smokeless tobacco: Never Used Comment: Quit smoking: ??? Alcohol Use: Yes Comment: Alcoholic Drinks/day: Amount:1-2 drinks; Freq:2-4/Month ; ??? Drug Use: No ??? Sexual Activity: Partners: Male Control/ Protection: Surgical Other Topics Concern ??? Bike Helmet No ??? City Water No ??? Exercise No ??? Guns In Home Yes ??? Seat Belt Yes ??? Special Diet No ??? Weight Concern No Social History Narrative Preventive Health Assessment: Exercise inadequate. Safe in relationship. Practices safe sex. Tetanus immunization is up-to-date. Sun protection used. Pap smear normal last year. No pelvic pain or discharge. Review of Systems - Negative except pertinent items in HPI. No chest pain or SOB. OBJECTIVE: Vital Signs: Filed Vitals: 03/15/16 1135 BP: 120/70 Pulse: 80 Height: 5' 6.14 (1.68 m) Weight: 244 lb (110.678 kg) BMI: Estimated body mass index is 39.21 kg/(m^2) as calculated from the following: Height as of this encounter: 5' 6.14 (1.68 m). Weight as of this encounter: 244 lb (110.678 kg). General appearance - alert, well appearing, and in no distress Mental Status - normal mood, behavior, speech, dress, motor activity, and thought processes Eyes - pupils equal and reactive, extraocular eye movements intact Ears - bilateral TM's and external ear canals normal Nose - normal and patent, no erythema, discharge or polyps Sinuses - Normal paranasal sinuses without tenderness Throat - mucous membranes moist, pharynx normal without lesions Neck - supple, no significant adenopathy Thyroid - thyroid is normal in size without nodules or tenderness Chest - clear to auscultation, no wheezes, rales or rhonchi, symmetric air entry Heart - normal rate, regular rhythm, normal S1, S2, no murmurs, rubs, clicks or gallops Abdomen - soft, nontender, nondistended, no masses or organomegaly Breasts - right breast normal without mass, skin or nipple changes or axillary nodes, left breast normal without mass, skin or nipple changes or axillary nodes Pelvic - exam declined by the patient, examination not indicated Back exam - full range of motion, no tenderness, palpable spasm or pain on motion Neurological - alert, oriented, normal speech, no focal findings or movement disorder noted Musculoskeletal - no joint tenderness, deformity or swelling Extremities - peripheral pulses normal, no pedal edema, no clubbing or cyanosis Skin - normal coloration and turgor, no rashes, no suspicious skin lesions noted ASSESSMENT: ICD-10-CM 1. Well adult exam Z00.00 2. Controlled type 2 diabetes mellitus without complication, with long-term current use of insulin (HRC) E11.9 Z79.4 3. Essential hypertension (HRC) I10 4. Menorrhagia with regular cycle N92.0 medroxyPROGESTERone (DEPO-PROVERA) injection 150 mg 5. Upper respiratory tract infection, unspecified type J06.9 amoxicillin- clavulanate (AUGMENTIN) 875-125 mg per tablet 6. Peripheral polyneuropathy (HRC) G62.9 gabapentin (NEURONTIN) 400 MG capsule 7. Rhinitis Chronic J31.0 fluticasone (FLONASE) 50 MCG/ACT nasal solution 8. Need for influenza vaccination Z23 Influenza (Fluarix 0.5, 3+ Yrs) PLAN: DM type 2 check due in May, labs are ordered. She will continue on her current regimen for DM for now. She can reduce the toujeo by 1 unit if she has any more symptomatic lower blood sugars. She will let me know how this is going. Recommended yearly eye exams. Will increase neurontin to 400 mg in the morning and 800 mg at night. We can also add an afternoon dose if she needs this. She will let me know how this is going. Will treat her URI symptoms with augmentin as prescribed as she is not improving on her own. Reviewed symptomatic cares. RTC if symptoms worsen or do not gradually improve. Refilled flonase as above. Continue on depo provera for menorrhagia. Will also recommend adequate calcium intake. She will continue to follow-up with her psychiatrist at [facility] for ongoing care of her depression and anxiety. Immunizations are up to date. Flu shot done. Discussed with patient: Recommended a balanced nutritious diet. Benefits of regular exercise. Sun protection. Routine physical in one year. documented in this encounter Plan of Treatment Upcoming Encounters Date Type Specialty Care Team Description 06/15/2022 Appointment Orthopedics Vanna Ulloa MD [address] [place] [address] (Wo rk) documented as of this encounter Visit Diagnoses Diagnosis Well adult exam - Primary Routine general medical examination at a health care facility Controlled type 2 diabetes mellitus with out complication, with long-term current use of insulin (HRC) Essential hypertension (HRC) Unspecified essential hypertension Menorrhagia with regular cycle Excessive or frequent menstruation Upper respiratory tract infection, unspe cified type Peripheral polyneuropathy Unspecified hereditary and idiopathic pe ripheral neuropathy Rhinitis Chronic Chronic rhinitis Need for influenza vaccination Need for prophylactic vaccination and in oculation against influenza documented in this encounter Administered Medications Inactive Administered Medications - up to 3 most recent administrations Medication Order MAR Action Action Date Dose Rate Site medroxyPROGESTERone Given 03/15/2016 2:52 150 mg Right Deltoid (DEPO-PROVERA) injection 150 mg PM CDT 150 mg, Intramuscular, EVERY 90 DAYS, First dose on 03/15/16 at 1200, Last dose on Tue12/10/16 at 1200, For 4 doses, Follow Depo Provera Policy documented in this encounter Care Teams Pollution Control Technician Relationship Specialty Start Date End Date Antoinette Leal, CHAIN MENDER, KINESIOLOGIST PCP - General 04/15/14 01/09/17 [facility] [place] [id number] documented as of this encounter
--- OUTSIDE RECORDS SUMMARY | 2022-04-22 14:01 | XMS_ITS | Encounter Summary ---
:1965 Author Organization [facility] Address [address] [place] [address] Care Team Providers Name Role Phone Antoinette Leal APRN, CLERICAL ADJUSTER Primary Care Provider Encounter Details Date Type Department Care Team Description 11/24/2015 Imaging [place] [facility] Rib contusion, right, [address] initial encounter [place], [place] [address] Social History Tobacco Use Types Packs/Day Years Used Date Smoking Tobacco: Never Assessed Sex Assigned at Date Recorded Not on file documented as of this encounter Plan of Treatment Upcoming Encounters Date Type Specialty Care Team Description 06/15/2022 Appointment Orthopedics Vanna Ulloa MD [address] [place], [place] [address] (Wo rk) documented as of this encounter Procedures Procedure Name Priority Date/Time Associated Diagnosis Comme nts XR RIBS RT W 1 VIEW Routine 11/24/2015 3:13 PM Rib contusion, Results for this CHEST CDT right, initial procedure are in encounter the results section. documented in this encounter Results XR Ribs Rt W 1 View Chest (11/24/2015 3:13 PM CDT) Anatomical Region Laterality Modality Chest Other Specimen (Source) Anatomical Location Collection Method / Collectio n Time Received Time / Laterality Volume Impressions 11/24/2015 3:23 PM CDT IMPRESSION: ??No acute process. Narrative 11/24/2015 3:23 PM CDT COMPARISON: ??None ? FINDINGS: ??Single PA and two oblique vi ews of the right ribs show normal cardiomediastinal silhouette and pulmonary vasculature. ??Lungs are well aerated and clear. ??No displaced rib fracture is seen, and no evidence of pneumothorax or significant effusion. ?? Procedure Note Pasha Morales MD - 01/12/2016Format ting of this note might be different from the original. COMPARISON: None FINDINGS: Single PA and two oblique view s of the right ribs show normal cardiomediastinal silhouette and pulmonary vasculature. Lungs are well aerated and clear. No displaced rib fracture is seen, and no evidence of pneumothorax or significant effusion. IMPRESSION IMPRESSION: No acute process. Amisha MCNEIL GD documented in this encounter Visit Diagnoses Diagnosis Rib contusion, right, initial encounter documented in this encounter Care Teams Tool And Machine Maintainer Relationship Specialty Start Date End Date Antoinette Leal, WAITER/WAITRESS ECONOMY CLASS, CLERICAL ADJUSTER PCP - General 04/15/14 01/09/17 [address] [facility] [place] [id number] documented as of this encounter
--- OUTSIDE RECORDS SUMMARY | 2022-04-22 14:01 | XMS_ITS | Encounter Summary ---
:1965 Author Organization [employer] Address [address] [place] [address] Care Team Providers Name Role Phone Antoinette Leal APRN, MAGED Primary Care Provider [phone] Encounter Details Date Type Department Care Team Description 12/01/2015 Lab Visit [place] [facility] Type 2 diabetes mellitus, co ntrolled ([facility]); [address] Hyperlipidemia; [place] [address] Essential hypertension; [phone] Amenorrhea Social History Tobacco Use Types Packs/Day Years Used Date Smoking Tobacco: Never Assessed Sex Assigned at Date Recorded Not on file documented as of this encounter Plan of Treatment Upcoming Encounters Date Type Specialty Care Team Description 06/15/2022 Appointment Orthopedics Vanna Ulloa MD [address] [place], [place] [address] (Wo rk) documented as of this encounter Procedures Procedure Name Priority Date/Time Associated Diagnosis Comme nts ALBUMIN/CREAT RATIO Routine 12/01/2015 11:22 Type 2 diabetes R esults for this AM CDT mellitus, controlled procedu re are in (HRC) the results section. POCT GLYCOSYLATED STAT 12/01/2015 11:16 Type 2 diabetes Res ults for this HEMOGLOBIN (HB A1C) AM CDT mellitus, controlled procedure are in (HRC) the results section. LIPID PANEL AND Routine 12/01/2015 11:16 Hyperlipidemia Result s for this DIRECT LDL(IF AM CDT procedure are in NEEDED) the results section. CREATININE / GFR Routine 12/01/2015 11:16 Essential hypertensi on Results for this AM CDT procedure are i n the results section. ELECTROLYTE PANEL Routine 12/01/2015 11:16 Essential hypertens ion Results for this AM CDT procedure are i n the results section. FSH Routine 12/01/2015 11:16 Results for this AM CDT procedure are i n the results section. EXTRA SERUM STAT 12/01/2015 10:53 Results for this SEPARATOR TUBE AM CDT procedure are in (YELLOW) the results section. documented in this encounter Results Microalb/Creat Ratio (12/01/2015 11:22 AM CDT) Analysis Performed At Patho logist Time Signature Microalbumin 38.0 mg/L HP CONVERSION Urine U Creat Random 242 mg/dL HP CONVERSION Microalbumin/Crea 15.7 0.0 - 30.0 HP CONVERSI ON tinine Ratio Specimen Anatomical Collection Method Collection Time Receive d Time (Source) Location / / Volume Laterality 12/01/2015 11:22 12/01/2015 2:44 AM CDT PM CDT Narrative HP CONVERSION - 12/01/2015 3:35 PM CDT Performed at [facility], [address] [place] [address] CLIA number [id number] Antoinette Leal APRN, CNP LAB_1 Performing Organization Address City/State/ZIP Code Phon e Number HP CONVERSION FSH (12/01/2015 11:16 AM CDT) P athologist Signature Follicle 8.4 mIU/mL HP CONVERSION Stimulating Hormone Comment: Normal Males: 1.0-12.0 Normally Menstruating Females Follicular Phase: 3.0-8.1 Mid-Cycle Peak: 2.6-16.7 Luteal Phase: 1.4-5.5 Postmenopausal Females without HRT: 26.8 -133.4 Specimen Anatomical Collection Method Collection Time Receive d Time (Source) Location / / Volume Laterality 12/01/2015 11:16 12/01/2015 3:35 AM CDT PM CDT Narrative HP CONVERSION - 12/01/2015 6:34 PM CDT Performed at [facility], [facility] [place] [address] CLIA number [id number] Antoinette Leal APRN, CNP LAB_1 Performing Organization Address City/[facility] Code Phon e Number HP CONVERSION (ABNORMAL) Electrolyte Panel (12/01/2015 11:16 AM CDT) athologist Signature Sodium 141 136 - 145 HP CONVERSION mmol/L Potassium 4.4 3.5 - 5.2 HP CONVERSION mmol/L Chloride 106 98 - 107 HP CONVERSION mmol/L Bicarbonate 21 (L) 22 - 29 HP CONVERSION mmol/L Specimen Anatomical Collection Method Collection Time Receive d Time (Source) Location / / Volume Laterality 12/01/2015 11:16 12/01/2015 6:14 AM CDT PM CDT Narrative HP CONVERSION - 12/01/2015 7:08 PM CDT Performed at [facility], [address] [place] [address] CLIA number [id number] Antoinette Leal APRN, CNP LAB_1 Performing Organization Address [facility] Phon e Number HP CONVERSION Creatinine / GFR (12/01/2015 11:16 AM CDT) athologist Signature Creatinine 0.90 0.55 - HP CONVERSION Serum 1.02 mg/dL Est GFR >60 >60 HP CONVERSION Am mL/min/1.7 3m2 Est GFR Non-Afr >60 >60 HP CONVERSION Am mL/min/1.7 3m2 Comment: Normal>60, moderate decrease 30 - 59, se bonny decrease 15 - 29, renal failure <15 mL/min/1.73 m2 NOTE: ??Choose the eGFR result above bruno ropriate for the race of the patient. Specimen Anatomical Collection Method Collection Time Receive d Time (Source) Location / / Volume Laterality 12/01/2015 11:16 12/01/2015 6:14 AM CDT PM CDT Narrative HP CONVERSION - 12/01/2015 7:08 PM CDT Performed at [facility], [address] [place] [address] CLIA number [id number] Antoinette Leal APRN, CNP LAB_1 Performing Organization Address [facility] Phon e Number HP CONVERSION (ABNORMAL) Lipid Panel and Direct LDL(If Needed) (12/01/2015 11:16 AM CDT) [facility] Method Time Signature Cholesterol 109 0 - 199 HP CONVERSION mg/dL Triglycerides 108 4 - 149 HP CONVERSION mg/dL HDL Cholesterol 31 (L) >39 mg/dL HP CONVERSION Cholesterol/HDL 3.5 HP CONVERSION Ratio Screen LDL Calculated 56 19 - 130 HP CONVERSION mg/dL Length Of Fast 10 HP CONVERSION Specimen Anatomical Collection Method Collection Time Receive d Time (Source) Location / / Volume Laterality 12/01/2015 11:16 12/01/2015 6:14 AM CDT PM CDT Narrative HP CONVERSION - 12/01/2015 7:08 PM CDT Performed at [facility], [address] [place] [address] CLIA number [id number] Antoinette Leal APRN, CNP LAB_1 Performing Organization Address [facility] Phon e Number HP CONVERSION (ABNORMAL) POCT GLYCOSYLATED HEMOGLOBIN (HB A1C) (12/01/2015 11:16 AM CDT) [facility] Method Time Signature Glycosolated HGB 6.3 (H) 4.0 - 5.6 HP CONVERSION A1C (POC) % Comment: The Rapid A1c test is designed for monit oring patients with an established diagnosis of diabetes amy litus. ??The rapid method is not suitable to establish the intial diagnosis of diabetes melitus. Specimen Anatomical Collection Method Collection Time Receive d Time (Source) Location / / Volume Laterality 12/01/2015 11:16 12/01/2015 AM CDT 11:16 AM CDT Narrative HP CONVERSION - 12/01/2015 11:35 AM CDT Performed at [facility], [address] [place] [address] CLIA number [id number] Antoinette Leal APRN, CNP LAB_1 Performing Organization Address [facility] Phon e Number HP CONVERSION EXTRA SERUM SEPARATOR TUBE (YELLOW) (12/01/2015 10:53 AM CDT) athologist Signature Extra SST Top Drawn HP CONVERSION Drawn Specimen (Source) Anatomical Collection Method Collection Time Re ceived Time Location / / Volume Laterality 12/01/2015 10:53 AM CDT Narrative HP CONVERSION - 12/01/2015 10:53 AM CDT Performed at [address], [place] [address] CLIA number [id number] Antoinette Leal APRN, CNP LAB_1 Performing Organization Address City/State/ZIP Code Phon e Number HP CONVERSION documented in this encounter Visit Diagnoses Diagnosis Type 2 diabetes mellitus, controlled (HR C) Type II or unspecified type diabetes amy litus without mention of complication, not stated as uncontrolled Hyperlipidemia (HRC) Other and unspecified hyperlipidemia Essential hypertension (HRC) Unspecified essential hypertension Amenorrhea Absence of menstruation documented in this encounter Care Teams Hydramatic Mechanic Relationship Specialty Start Date End Date Antoinette Leal APRN, CNP PCP - General 04/15/14 01/09/[address] [place] [id number] documented as of this encounter
--- OUTSIDE RECORDS SUMMARY | 2022-04-22 14:01 | XMS_ITS | Encounter Summary ---
:1965 Author Organization [facility] Address [address] [place] [address] Care Team Providers Name Role Phone Juana Leal PRODUCTION SUPERINTENDENT HYDRO, LEAD RECREATION ASSISTANT Primary Care Provider Encounter Details Date Type Department Care Team Description 01/26/2016 Refill Order [place] [facility] Juana Leal, PRODUCTION SUPERINTENDENT HYDRO, [address] [facility] . [place] [address] [address] [facility] [phone] [place], [place] [address] (Wo rk) Social History Tobacco Use Types Packs/Day Years Used Date Smoking Tobacco: Former Smokeless Tobacco: Never Comments: Quit smoking: Alcohol Use Standard Drinks/Week Comments Yes 0 (1 standard drink = 0.6 oz pure Alcoho lic Drinks/day: Amount:1-2 alcohol) drinks; Freq:- ; Sex Assigned at Date Recorded Not on file documented as of this encounter Nursing Notes Sofy Gabriel LPN - 01/26/2016 2:34 PM CDT Called pt no answer. A message was left stating script was filled and sent to pharmacy. Interface, Out Surescripts Prov Query - 01/26/2016 12:39 PM CDT ORDER THE FOLLOWING: - HBA1C: Previously ordered on 12/01/2015 and will on 06/28/2016 SCHEDULE THE FOLLOWING: - HBA1C BY: Now (Due as of 11/22/2015 for multiple medications including metFORMIN (GLUCOPHAGE XR) 500 MG 24 hour release tablet) - LAST QUALIFYING VISIT WITH JUANA LEAL N: 12/01/2015 - NEXT SCHEDULED VISIT: None - NEXT LAB APPOINTMENT: None Powered by [employer], Reference: [id number], 01/26/2016 12:39:27 PM CDT, Pool: OTTO REFILL ([id number]) documented in this encounter Plan of Treatment Upcoming Encounters Date Type Specialty Care Team Description 06/15/2022 Appointment Orthopedics Vanna Ulloa MD [address] [facility] [place] [address] (Wo rk) documented as of this encounter Visit Diagnoses Diagnosis Encounter for long-term (current) use of medications - Primary Encounter for long-term (current) use of other medications documented in this encounter Care Teams Strategic Partnership Specialist Relationship Specialty Start Date End Date Juana Leal, PRODUCTION SUPERINTENDENT HYDRO, LEAD RECREATION ASSISTANT PCP - General 04/15/14 01/09/17 1415 [place] [id number] documented as of this encounter
--- OUTSIDE RECORDS SUMMARY | 2022-04-22 14:01 | XMS_ITS | Encounter Summary ---
:1965 Author Organization [employer] Address [address] [place] [address] Care Team Providers Name Role Phone Juana Leal SAMPLING THEORY TEACHER, FAMILY COURT JUSTICE Primary Care Provider Encounter Details Date Type Department Care Team Description 10/02/2015 Refill Order [place] [facility] Juana Leal, SAMPLING THEORY TEACHER, [address] [place] [address] [address] [facility] [phone] [place], [place] [address] (Wo rk) Social History Tobacco Use Types Packs/Day Years Used Date Smoking Tobacco: Never Assessed Sex Assigned at Date Recorded Not on file documented as of this encounter Nursing Notes User, Tin - 10/02/2015 11:44 AM CDT ORDER THE FOLLOWING: - HBA1C: Previously ordered on 05/28/2015 and will on 05/28/2016 SCHEDULE THE FOLLOWING: - HBA1C BY: 11/22/2015 (Coming due as of 11/22/2015 for multiple medications including metFORMIN (GLUCOPHAGE-XR) 500 mg XR 24 hour tablet) - LAST QUALIFYING VISIT WITH JUANA LEAL N: 07/23/2015 - NEXT SCHEDULED VISIT: None - NEXT LAB APPOINTMENT: None Powered by [employer], Reference: [id number], 10/02/2015 11:12:43 AM CDTTonio: OTTOEhsan DUENASRAJ ([id number]) Jeanette Overton CMA - 10/02/2015 11:44 AM CDT Pended A1C removed her protocol. A1C is not due at this time. INUOUS WELD PIPE MILL SUPERVISOR documented in this encounter Plan of Treatment Upcoming Encounters Date Type Specialty Care Team Description 06/15/2022 Appointment Orthopedics Vanna Ulloa MD [address] [facility] [place] [address] (Wo rk) documented as of this encounter Visit Diagnoses Diagnosis Encounter for long-term (current) use of medications - Primary Encounter for long-term (current) use of other medications documented in this encounter Care Teams Mail Truck Driver Relationship Specialty Start Date End Date Juana Leal, SAMPLING THEORY TEACHER, FAMILY COURT JUSTICE PCP - General 04/15/14 01/09/17 [address] [facility] [place] [address] documented as of this encounter
--- OUTSIDE RECORDS SUMMARY | 2022-04-22 14:01 | XMS_ITS | Encounter Summary ---
:1965 Author Organization [facility] Address [address] [place] [address] Care Team Providers Name Role Phone Antoinette Leal APRN, WAFER MACHINE OPERATOR Primary Care Provider Reason for Visit Reason Comments HC Phone Visit Encounter Details Date Type Department Care Team Description 08/04/2015 Care Coord Phone Tran Greco R N [facility] Phone Visit Medicine [address] [facility] [address] [facility] [place] [address] [place] [address] [phone] Social History Tobacco Use Types Packs/Day Years Used Date Smoking Tobacco: Never Assessed Sex Assigned at Date Recorded Not on file documented as of this encounter Progress Notes Tran Rodriguez RN - 08/05/2015 9:13 PM CDT RN Lidding Machine Operator - Diabetes Follow-Up Current diabetes medication regimen: Metformin XL 1,500 mg daily Bydureon 2 mg once weekly Lantus 24 units daily CURRENT GLUCOSE PATTERNS: since 07/21/15 Before breakfast: 168 - 198 Before dinner: 135 - 161 2 hours postmeal: 130 - 178 Hypoglycemia (previous two weeks): none Assessment/education: Liz is calling to review her BG readings and side effects from Bydureon. Sheis frustrated by all the problems she has been having while taking Bydureon and is very unhappy withthe medication. Liz has noticed a 30-40 point increase in her BG readings since switching from Victoza to Bydureon. Also, she reports significant adverse site reactions from Bydureon including skin breakdown (open sore), severe itching, and pain at the injection sites (even the sites administered 3 weeks ago). iLz has taken her last injection and refuses to refill the prescription. She is requesting to switch toTrulicity, which requires a prior authorization through [employer]. Since Liz has tried and failed both Victoza and Bydureon secondary to adverse reactions, I completed a PA for Trulicity through [employer] My Meds. Liz will be due for her next weekly injection on Tuesday. Because Liz's BG have been higher and she is scheduled to switch from Lantus to Toujeo within the next 3 days, I advised her to increase her insulin dose 2 units. Teach back method used to verify understanding. Shared plan: Discontinue Bydureon, adverse reactions added to allergies. Per DM SO, increase Lantus/Toujeo to 26 units daily. New Rx sent for Suhas, PA submitted to [employer]. Phone follow up once response to PA is received. Call if sx of hypoglycemia or glucose readings < 70 mg/dL. Liz verbalized understanding and agreed with plan of care and follow up. documented in this encounter Plan of Treatment Upcoming Encounters Date Type Specialty Care Team Description 06/15/2022 Appointment Orthopedics Vanna Ulloa MD [address] [facility] [place] [address] (Wo rk) documented as of this encounter Visit Diagnoses Diagnosis Diabetes type 2, uncontrolled - Primary Type II or unspecified type diabetes amy litus without mention of complication, uncontrolled Health halfway, active care coordinati on documented in this encounter Care Teams Pre Owned Sales Manager Relationship Specialty Start Date End Date Antoinette Leal, SPECIAL EDUCATION COORDINATOR, WAFER MACHINE OPERATOR PCP - General 04/15/14 01/09/17 [address] [place] [address] documented as of this encounter
--- OUTSIDE RECORDS SUMMARY | 2022-04-22 14:01 | XMS_ITS | Encounter Summary ---
:1965 Author Organization [facility] Address [address] [place] [address] Care Team Providers Name Role Phone Antoinette Leal APRN, CNP Primary Care Provider Reason for Visit Reason Comments Injection Encounter Details Date Type Department Care Team Description 11/06/2015 Nursing Visit [place] [facility] En[facility] for Medicine surveillance of [address] . [place] [address] (Primary Dx) [phone] Social History Tobacco Use Types Packs/Day Years Used Date Smoking Tobacco: Never Assessed Sex Assigned at Date Recorded Not on file documented as of this encounter Plan of Treatment Upcoming Encounters Date Type Specialty Care Team Description 06/15/2022 Appointment Orthopedics Vanna Ulloa MD [address] [place] [address] (Wo rk) documented as of this encounter Visit Diagnoses Diagnosis Encounter for surveillance of injectable contraceptive - Primary Surveillance of other previously prescri bed contraceptive method documented in this encounter Care Teams Human Resources Benefits Coordinator Relationship Specialty Start Date End Date Antoinette Leal APRN, CNP PCP - General 04/15/14 01/09/17 [address]15 [place] [address] documented as of this encounter
--- OUTSIDE RECORDS SUMMARY | 2022-04-22 14:01 | XMS_ITS | Encounter Summary ---
:1965 Author Organization [facility] Address [address] [place] [address] Care Team Providers Name Role Phone Juana Leal APRN, MAGED Primary Care Provider Reason for Visit Reason Comments Refill Encounter Details Date Type Department Care Team Description 07/14/2015 Refill [facility] Juana Leal APRN, [employer] Refill [address] [place] [address] [place], [place] [id number] (Wo rk) Social History Tobacco Use Types Packs/Day Years Used Date Smoking Tobacco: Never Assessed Sex Assigned at Date Recorded Not on file documented as of this encounter Nursing Notes User, Refillwizarobby - 07/16/2015 8:02 AM CST metFORMIN (GLUCOPHAGE-XR) 500 mg XR 24 hour tablet - MEDICATION STARTED: 08/18/2010 - LAST REFILLED ON: 04/18/2015, QTY: 270, Refills: 0, Sig: take 3 tablets by mouth daily( every 24 hours) (changed but equivalent) - WARNING: This medication may not have been authorized by the requested provider. - REFILL: 6 months (if warnings resolved) - RATIONALE: This refill should last until the patient is due for a(n) HBA1C check. - LAST QUALIFYING VISIT WITH JUANA LEAL: 05/26/2015 - NEXT SCHEDULED VISIT: None - Cr: 1.0mg/dL on 01/22/2015 - HBA1C: 6.4% on 05/26/2015 Powered by [employer], Reference: [id number], 07/14/2015 12:11:52 PM ENRICHMENT TEACHER, Pool: OTTO REFILL ([id number]) CHMENT TEACHER Juana Leal APRN, CNP - 07/16/2015 8:02 AM CST Replied via [employer]. CHMENT TEACHER Elder Flaherty RN - 07/15/2015 9:15 PM CST Further assistance needed to complete refill request Reason: RN Reviewed--Need signed order in [facility] for pended medication. Next Steps: Review pended order for accuracy. Sign. Close encounter. Requested Prescriptions Pending Prescriptions Disp Refills ??? metFORMIN (GLUCOPHAGE-XR) 500 mg XR 24 hour tablet 270 tablet 1 Sig: Take 3 tablets by mouth daily (every 24 hours). CHMENT TEACHER documented in this encounter Miscellaneous Notes Patient Email (Converted) - Tim Bustamante Provider - 07/16/2015 8:02 AM ENRICHMENT TEACHER Metformin From User: JUANA LEAL I sent over a refill for your metformin. How are things going on the fluoxetine? Thanks Juana Leal CNP 07/16/2015 CHMENT TEACHER documented in this encounter Plan of Treatment Upcoming Encounters Date Type Specialty Care Team Description 06/15/2022 Appointment Orthopedics Vanna Ulloa MD [address] [facility] [place] [address] (Wo rk) documented as of this encounter Visit Diagnoses Not on filedocumented in this encounter Care Teams Clinic Nurse Relationship Specialty Start Date End Date Juana Leal APRN, MAGED PCP - General 04/15/14 01/09/17 1415 [place] [id number] documented as of this encounter
--- OUTSIDE RECORDS SUMMARY | 2022-04-22 14:01 | XMS_ITS | Encounter Summary ---
:1965 Author Organization [facility] Address [address] [place] [address] Care Team Providers Name Role Phone Antoinette Leal APRN, MISSILE CONTROL PILOT Primary Care Provider Reason for Visit Reason Comments [facility] Phone Visit Encounter Details Date Type Department Care Team Description 09/03/2015 Care Coord Phone Tran Greco R N [facility] Phone Visit Medicine [address] [facility] [address] [facility] [place] [address] [place] [address] [phone] Social History Tobacco Use Types Packs/Day Years Used Date Smoking Tobacco: Never Assessed Sex Assigned at Date Recorded Not on file documented as of this encounter Progress Notes Tran Rodriguez RN - 09/05/2015 4:06 PM CDT RN Deck Supervisor - Diabetes Follow-Up Current diabetes medication regimen: Metformin XL 1,500 mg daily Toujeo 22 units daily Trulicity 0.75 mg once weekly CURRENT GLUCOSE PATTERNS: since 08/27/15 Before breakfast: 102 - 128 Before dinner: 72 - 108 2 hours postmeal: 78 - 120 Hypoglycemia (previous two weeks): none Assessment/education: Liz is calling to review her BG readings after switching from Bydureon to Trulicity about 1 month ago. She still has localized site reactions caused by Bydureon, including areason her abdomen that are swollen/hard and uncomfortable when touched. She denies any redness, heat, or red streaking. I consulted with MARCOS Hughes. She advised Liz to continue to observe the sitesdaily. They will likely improve/resolve over time. If the reactions worsen in any way, she should follow up with Antoinette Leal. Liz agreed. Liz has noticed a steady decrease in her BG readings since switching from Bydureon to Trulicity and is very happy with the results. In fact, as her BG continued to decrease, Liz independently adjusted her Toujeo dose. She most recently decreased her Toujeo to 22 units 7 days ago. Because Liz hasseveral BG readings in the 70-80s, I advised she decrease her Toujeo another unit. I am concerned that with the tighter glucose control, Liz is at an increased risk for hypoglycemia, especially if she increases her activity. Liz agrees. Liz reports minimal nausea side effect, every once and a while. She is very happy with her increased glucose control, ability to use less insulin, and decreasing weight. Liz thinks she has lost about 10 lbs so far. Because Liz wants to start walking again with the warmer weather, I advised she eat one CHO choicebefore strenuous activity to prevent hypoglycemia. She agreed. Teach back method used to verify understanding. Shared plan: Continue Trulicity and metformin, as directed. Per DM SO, decrease Toujeo to 21 units daily. SMBG tid as directed, record readings. Count CHO choices and try to stay 2-3 choices per meal. Eat 1 CHO choice snack before strenuous activity to prevent hypoglycemia. Phone follow up as needed. DM follow up with Antoinette Leal CNP in 10/2015. Call if sx of hypoglycemia or glucose readings < 70 mg/dL. Liz verbalized understanding and agreed with plan of care and follow up. documented in this encounter Plan of Treatment Upcoming Encounters Date Type Specialty Care Team Description 06/15/2022 Appointment Orthopedics Vanna Ulloa MD [address] [facility] [place] [address] (Wo rk) documented as of this encounter Visit Diagnoses Diagnosis Health mcfp, active care coordinati on - Primary Diabetes type 2, uncontrolled Type II or unspecified type diabetes amy litus without mention of complication, uncontrolled documented in this encounter Care Teams Heavy Truck Technician Relationship Specialty Start Date End Date Antoinette Leal, CLASSIFICATION COUNSELOR, MISSILE CONTROL PILOT PCP - General 04/15/14 01/09/17 [address] [place] [address] documented as of this encounter
--- OUTSIDE RECORDS SUMMARY | 2022-04-22 14:01 | XMS_ITS | Encounter Summary ---
:1965 Author Organization [facility] Address [address] [place] [address] Care Team Providers Name Role Phone Antoinette Leal CHIEF SCIENTIFIC OFFICER, MAGED Primary Care Provider Reason for Visit Reason Onset Date Comments Prior Authorization For Medication 01/26/2016 Encounter Details Date Type Department Care Team Description 01/26/2016 Telephone [facility] Antoinette Leal, Prior Au thorization For Medicine SILVIANO, MAGED Medication [address] [place] [address] Ave [phone] [place] [address] Social History Tobacco Use Types Packs/Day Years Used Date Smoking Tobacco: Former Smokeless Tobacco: Never Comments: Quit smoking: Alcohol Use Standard Drinks/Week Comments Yes 0 (1 standard drink = 0.6 oz pure Alcoho lic Drinks/day: Amount:1-2 alcohol) drinks; Freq:2-4/Tue ; Sex Assigned at Date Recorded Not on file documented as of this encounter Nursing Notes Pavel Wheeler MA - 01/30/2016 9:25 AM CDT PA submitted on 01/26/16 was denied, as incorrect coverage date was put on form. PA has been reubmitted with correct date. Tran Rodriguez RN - 01/26/2016 4:26 PM CDT See [facility] encounter on 01/26/16 for documentation. Zenia Tobar - 01/26/2016 12:32 PM CDT Prior Authorization What prior authorization is needed? Dulaglutide 0.75 MG/0.5ML SOPN Insurance Carrier: [place] Healthcare Program / Medical Assistance Pharmacy Carrier? [place] Healthcare Program / Medical Assistance Patient advised, please allow 7-10 business days to complete. Pt requests prior authorization to be requested armida as she is due for refill and just switched to this insurance and found out they require authorization. Please call pt and advise when prior authorization has been requested. documented in this encounter Plan of Treatment Upcoming Encounters Date Type Specialty Care Team Description 06/15/2022 Appointment Orthopedics Vanna Ulloa MD [address] [facility] [place] [phone] (Wo rk) documented as of this encounter Visit Diagnoses Not on filedocumented in this encounter Care Teams Fur Storage Clerk Relationship Specialty Start Date End Date Antoinette Leal, CHIEF SCIENTIFIC OFFICER, RAGMAN PCP - General 04/15/14 01/09/17 [facility] [place] [id number] documented as of this encounter
--- OUTSIDE RECORDS SUMMARY | 2022-04-22 14:01 | XMS_ITS | Encounter Summary ---
:1965 Author Organization [facility] Address [address] [place] [address] Care Team Providers Name Role Phone Antoinette Leal APRN, MAGED Primary Care Provider Reason for Visit Reason Comments Registry Encounter Details Date Type Department Care Team Description 12/12/2015 Notes/Orders [facility] Antoinette Leal APRN, [address] [place] [address] [facility] [phone] [place] [address] (Wo rk) Social History Tobacco Use Types Packs/Day Years Used Date Smoking Tobacco: Never Assessed Sex Assigned at Date Recorded Not on file documented as of this encounter Plan of Treatment Upcoming Encounters Date Type Specialty Care Team Description 06/15/2022 Appointment Orthopedics Vanna Ulloa MD [address] [place] [address] (Wo rk) documented as of this encounter Visit Diagnoses Not on filedocumented in this encounter Care Teams Volunteer Manager Relationship Specialty Start Date End Date Antoinette Leal APRN, MAGED PCP - General 04/15/14 01/09/[address] [place], [place] [address] documented as of this encounter
--- OUTSIDE RECORDS SUMMARY | 2022-04-22 14:01 | XMS_ITS | Encounter Summary ---
:1965 Author Organization [employer] Address [address] [place] [address] Care Team Providers Name Role Phone Juana Leal APRN, MAGED Primary Care Provider Reason for Visit Reason Comments Refill Encounter Details Date Type Department Care Team Description 08/20/2015 Refill [facility] Juana Leal APRN, OUTREACH DIRECTOR Refill [address] [place] [address] [place], [place] [phone] (Wo rk) Social History Tobacco Use Types Packs/Day Years Used Date Smoking Tobacco: Never Assessed Sex Assigned at Date Recorded Not on file documented as of this encounter Nursing Notes User, Tin - 08/20/2015 10:58 AM CDT lisinopril (PRINIVIL, ZESTRIL) 20 mg tablet - MEDICATION STARTED: 08/18/2010 - LAST REFILLED ON: 12/02/2014, QTY: 90, Refills: 1, Sig: take 1 tablet by mouth daily (every 24 hours). (unchanged) - REFILL: 6 months - RATIONALE: This refill should last until the patient is due for a(n) Cr check and K check. - LAST QUALIFYING VISIT WITH JUANA LEAL N: 07/23/2015 - NEXT SCHEDULED VISIT: None - SBP: 118.0mm Hg on 07/23/2015 - DBP: 86.0mm Hg on 07/23/2015 - Cr: 1.0mg/dL on 01/22/2015 - K: 4.7mEq/L on 01/22/2015 Powered by [employer], Reference: [id number], 08/20/2015 10:29:39 AM CDT, Pool: OTTO DUENASILL ([id number]) IOTHERAPY PRACTICE MANAGER Connie Sunshine RN - 08/20/2015 10:58 AM CDT Renewed medication per medication refill protocol. Requested Prescriptions Signed Prescriptions Disp Refills ??? lisinopril (PRINIVIL, ZESTRIL) 20 mg tablet 90 tablet 1 Sig: Take 1 tablet by mouth daily (every 24 hours). Authorizing Provider: JUANA LEAL Ordering User: CONNIE SUNSHINE documented in this encounter Plan of Treatment Upcoming Encounters Date Type Specialty Care Team Description 06/15/2022 Appointment Orthopedics Vanna Ulloa MD [address] [facility] [place] [address] (Wo rk) documented as of this encounter Visit Diagnoses Not on filedocumented in this encounter Care Teams Gas Leak Inspector Helper Relationship Specialty Start Date End Date Juana Leal, BLOCKING MACHINE TENDER, OUTREACH DIRECTOR PCP - General 04/15/14 01/09/17 [address] [facility] [place] [address] documented as of this encounter
--- OUTSIDE RECORDS SUMMARY | 2022-04-22 14:01 | XMS_ITS | Encounter Summary ---
:1965 Author Organization [facility] Address [address] [place] [address] Care Team Providers Name Role Phone Antoinette Leal APRN, CAMERA MACHINIST Primary Care Provider [phone] Reason for Visit Reason Comments Chest Pain Encounter Details Date Type Department Care Team Description 11/24/2015 Office Visit [facility] Amisha Magana, Rib c ontusion, right, Medicine DO initial encounter [address] ([address]) [place] [address] [place], [place] [phone] (Wo rk) Social History Tobacco Use Types Packs/Day Years Used Date Smoking Tobacco: Never Assessed Sex Assigned at Date Recorded Not on file documented as of this encounter Last Filed Vital Signs Vital Sign Reading Time Taken Comments Blood Pressure 118/72 11/24/2015 1:52 PM CDT Pulse 72 11/24/2015 1:52 PM CDT Temperature - - Respiratory Rate - - Oxygen Saturation - - Inhaled Oxygen Concentration - - Weight 103.9 kg (229 lb) 11/24/2015 1:52 PM CDT Height - - Body Mass Index 37.7 01/22/2015 1:16 PM CDT documented in this encounter Progress Notes Amisha Magana DO - 11/24/2015 3:34 PM CDT Subjective: Patient ID: Liz Phelps is a 50 y.o. female. Chief Complaint: HPI Liz Phelps is here today for a rib injury. She says she had a misstep and fell into some garbage cans. Happened about a week ago. Pain has progressively been getting worse. Hurts to take a breathor cough or sneezing. Has been taking some ibuprofen. She has been taking some tramadol at night that she had from an old injury. Reviewed patient Past medical history, medications, allergies and Social/Family history. Updated in [facility]. Review of Systems Constitutional: Negative for fever and fatigue. HENT: Negative for congestion and sore throat. Respiratory: Positive for shortness of breath. Negative for chest tightness. Cardiovascular: Positive for chest pain. Gastrointestinal: Negative for abdominal pain. Neurological: Negative for headaches. Psychiatric/Behavioral: Negative for decreased concentration. BP 118/72 mmHg Pulse 72 Wt 229 lb (103.874 kg) Objective: Physical Exam Constitutional: She is oriented to person, place, and time. She appears well- developed and well-nourished. No distress. HENT: Head: Normocephalic and atraumatic. Nose: Nose normal. Mouth/Throat: Oropharynx is clear and moist. Eyes: Conjunctivae and EOM are normal. Pupils are equal, round, and reactive to light. Neck: Neck supple. Cardiovascular: Normal rate, regular rhythm, normal heart sounds and intact distal pulses. Pulmonary/Chest: Effort normal and breath sounds normal. She has no decreased breath sounds. She exhibits bony tenderness (right side ribs 6-8 with some bruising over the top. ). Neurological: She is alert and oriented to person, place, and time. Skin: She is not diaphoretic. Psychiatric: She has a normal mood and affect. Her behavior is normal. Thought content normal. Nursing note and vitals reviewed. Assessment: ICD-10-CM 1. Rib contusion, right, initial encounter S20.211A XR Ribs Unilateral Right Including Chest 3+ Views cyclobenzaprine (FLEXERIL) 5 mg tablet Plan: Xray shows no fracture. Discussed conservative treatments. Advised OTC pain meds and ice/heat as needed. Flexeril as needed- not to be used while operating a vehicle or heavy machinery. Follow up if not getting better. Amisha Magana DO documented in this encounter Plan of Treatment Upcoming Encounters Date Type Specialty Care Team Description 06/15/2022 Appointment Orthopedics Vanna Ulloa MD [address] [facility] [place] [phone] (Wo rk) documented as of this encounter Visit Diagnoses Diagnosis Rib contusion, right, initial encounter - Primary documented in this encounter Care Teams Assistant Child Care Teacher Relationship Specialty Start Date End Date Antoinette Leal, CARTON FORMING MACHINE OPERATOR, CAMERA MACHINIST PCP - General 04/15/14 01/09/17 14[address] [facility] [place] [id number] documented as of this encounter
--- OUTSIDE RECORDS SUMMARY | 2022-04-22 14:01 | XMS_ITS | Encounter Summary ---
:1965 Author Organization [facility] Address [address] [place] [address] Care Team Providers Name Role Phone Antoinette Leal APRN, CNP Primary Care Provider Reason for Visit Reason Comments Injection Encounter Details Date Type Department Care Team Description 08/19/2015 Nursing Visit [facility] Depo cont raception Medicine (Primary Dx) [address] [facility] [place] [address] Social History Tobacco Use Types Packs/Day Years Used Date Smoking Tobacco: Never Assessed Sex Assigned at Date Recorded Not on file documented as of this encounter Progress Notes Monie Alexander LPN - 08/19/2015 1:59 PM CDT Injection given per standing order. documented in this encounter Plan of Treatment Upcoming Encounters Date Type Specialty Care Team Description 06/15/2022 Appointment Orthopedics Vanna Ulloa MD [address] [place], [place] [phone] (Wo rk) documented as of this encounter Visit Diagnoses Diagnosis Depo contraception - Primary documented in this encounter Care Teams Card Grinder Helper Relationship Specialty Start Date End Date Antoinette Leal APRN, CNP PCP - General 04/15/14 01/09/17 1415 [place] [address] documented as of this encounter
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
--- OUTSIDE RECORDS SUMMARY | 2022-04-22 14:01 | XMS_ITS | Encounter Summary ---
:1965 Author Organization [facility] Address [address] [place] [address] Care Team Providers Name Role Phone Juana Leal APRN, ELECTRICAL SOLDERER Primary Care Provider Reason for Visit Reason Onset Date Comments Refill 02/09/2016 traZODone (DESYREL) 50 MG tablet; venlafaxine (EFFEXORXR) 75 MG 24 hour release capsule Encounter Details Date Type Department Care Team Description 02/09/2016 Refill [facility] Juana Leal, Refill ( traZODone Medicine SENIOR WIND ENERGY CONSULTANTMAGED Serrano (DESYREL) 50 MG tablet; [address] venlafaxine (EFFEXORXR) [place] [address] [place] [address] 75 MG 24 hour release [phone] (Wo rk) capsule) Social History Tobacco Use Types Packs/Day Years Used Date Smoking Tobacco: Former Smokeless Tobacco: Never Comments: Quit smoking: Alcohol Use Standard Drinks/Week Comments Yes 0 (1 standard drink = 0.6 oz pure Alcoho lic Drinks/day: Amount:1-2 alcohol) drinks; Freq:2-/Tue ; Sex Assigned at Date Recorded Not on file documented as of this encounter Nursing Notes Sofy Gabriel LPN - 02/13/2016 9:43 AM CDT Called and spoke with pt & informed her that her scripts were ready for her at [facility]. Juana Leal APRN, CNP - 02/12/2016 7:52 PM CDT Sent for one month. Thanks. Alfreda Pisano RN - 02/12/2016 11:08 AM CDT Pt reporting she has changed insurances so she can no longer see her psychiatrist at [facility]. She hasrequesting her records be transferred to psychiatry but does not have an appointment. Reports shehas to wait until after 02/14/16 to schedule due to insurance issues. Has been without meds for 2 days now. Is requesting refill for 30 days until she can establish care. Jah Machado - 02/12/2016 11:03 AM CDT Pt calling back, requesting to speak to a nurse about rx rl status. Juana Leal APRN, CNP - 02/11/2016 2:36 PM CDT Please call. To my knowledge, she is seeing a psychiatrist at [facility]. She should request refills through that person. Thanks. Meaghan Ferrer RN - 02/11/2016 9:00 AM CDT Further assistance needed to complete refill request Reason: Venlafaxine listed as historical on active med list. Signed order needed. Please see note below. Trazodone is listed on active med list with instructions to take 1-2 tabs as needed. Next Steps: Review pended order for accuracy. Sign. Route to appropriate person/pool. Patient IS expecting call back from care team. Requested Prescriptions Pending Prescriptions Disp Refills ??? traZODone (DESYREL) 50 MG tablet 180 Tab 3 Sig: Take 1-2 Tabs by mouth at bedtime as needed for Sleep. ??? venlafaxine (EFFEXORXR) 75 MG 24 hour release capsule 90 Cap 3 Sig: Take 1 Cap by mouth daily. Interface, Out Surescripts Prov Query - 02/10/2016 8:57 AM CDT 1) traZODone (DESYREL) 50 MG tablet - MEDICATION STARTED: 05/26/2015 - LAST REFILLED ON: 08/25/2015, QTY: 30, Refills: 2, Sig: take 1-2 tablets by mouth at bedtime as needed for sleep. (changed) - WARNING: This medication may not have been authorized by the requested provider. - REFILL: 12 months (if warnings resolved; manual update required, due to unreadable sig) - RATIONALE: This refill should last until the patient is due for an office visit. - LAST QUALIFYING VISIT WITH JUANA LEAL N: 12/01/2015 - NEXT SCHEDULED VISIT: None - SBP: 130mm Hg on 12/01/2015 - DBP: 88mm Hg on 12/01/2015 Powered by [employer], Reference: [id number], 02/10/2016 8:57:23 AM CDT, Pool: OTTO REFILL ([id number]) 2) venlafaxine (EFFEXORXR) 75 MG 24 hour release capsule - MEDICATION STARTED: 08/25/2015 - LAST REFILLED: Not available (Last set to Historical on 08/25/2015 by JUANA LEAL Sig: take 1capsule by mouth daily (every 24 hours). (changed)) - WARNING #1: This medication may not have been authorized by the requested provider. - WARNING #2: The requested medication was previously set to Historical on 08/25/2015 by JUANA LEAL - REFILL: 12 months (if warnings resolved) - RATIONALE: This refill should last until the patient is due for an office visit. - LAST QUALIFYING VISIT WITH JUANA LEAL N: 12/01/2015 - NEXT SCHEDULED VISIT: None - SBP: 130mm Hg on 12/01/2015 - DBP: 88mm Hg on 12/01/2015 Powered by [employer], Reference: [id number], 02/10/2016 8:57:23 AM CDT, Pool: OTTO REFILL ([id number]) Aleida Anderson - 02/09/2016 11:58 AM CDT Non -Symptom Message from [facility] Primary Care Provider: Juana Leal, SILVIANO, ELECTRICAL SOLDERER Message: pt needs to have her pcp fill these until she can get into the [facility] mental health dept. Pt will have new insurance on 02/14/16 so is waiting to see what is covered. Pt also notes that the dosageon her trazadone states she can take 1-3 tabs by mouth at bedtime per her rx bottle. Please call herto discuss. documented in this encounter Plan of Treatment Upcoming Encounters Date Type Specialty Care Team Description 06/15/2022 Appointment Orthopedics Vanna Ulloa MD [address] [facility] [place] [phone] (Wo rk) documented as of this encounter Visit Diagnoses Diagnosis Severe single current episode of major d epressive disorder, without psychotic features (HRC) - Primary Chronic insomnia Insomnia, unspecified documented in this encounter Care Teams Crucible Packer Relationship Specialty Start Date End Date Juana Leal APRN, ELECTRICAL SOLDERER PCP - General 04/15/14 01/09/17 [address] [place] [address] documented as of this encounter
--- OUTSIDE RECORDS SUMMARY | 2022-04-22 14:01 | XMS_ITS | Encounter Summary ---
:1965 Author Organization [facility] Address [address] [place] [address] Care Team Providers Name Role Phone Antoinette Leal APRN, SALESPERSON RECREATIONAL VEHICLES Primary Care Provider Reason for Visit Reason Onset Date Comments Forms 02/19/2016 Encounter Details Date Type Department Care Team Description 02/19/2016 Telephone [facility] Antoinette Leal, SILVIANO, Forms [address] [facility] . [place] [address] [address] [facility] [phone] [place], [place] [address] (Wo rk) Social History Tobacco Use Types Packs/Day Years Used Date Smoking Tobacco: Former Smokeless Tobacco: Never Comments: Quit smoking: Alcohol Use Standard Drinks/Week Comments Yes 0 (1 standard drink = 0.6 oz pure Alcoho lic Drinks/day: Amount:1-2 alcohol) drinks; Freq:2- ; Sex Assigned at Date Recorded Not on file documented as of this encounter Nursing Notes Sofy Gabriel LPN - 02/19/2016 3:32 PM CDT Called pt no answer. A message was left to return the phone call. If pt call back please do phq9. documented in this encounter Plan of Treatment Upcoming Encounters Date Type Specialty Care Team Description 06/15/2022 Appointment Orthopedics Vanna Ulloa MD [address] [facility] [place] [phone] (Wo rk) documented as of this encounter Visit Diagnoses Not on filedocumented in this encounter Care Teams Cyber Instructor Relationship Specialty Start Date End Date Antoinette Leal, ELECTRICAL SOFTWARE ENGINEER, SALESPERSON RECREATIONAL VEHICLES PCP - General 04/15/14 01/09/17 14[address] [facility] [place] [phone] documented as of this encounter
--- OUTSIDE RECORDS SUMMARY | 2022-04-22 14:01 | XMS_ITS | Encounter Summary ---
:1965 Author Organization [facility] Address [address] [place] [address] Care Team Providers Name Role Phone Juana Leal APRN, MAGED Primary Care Provider Reason for Visit Reason Comments Refill Encounter Details Date Type Department Care Team Description 01/06/2016 Refill [facility] Juana Leal APRN, LONG FILLER CIGAR ROLLER MACHINE [facility] [address] [place] [address] [place] [address] [phone] (Wo rk) Social History Tobacco Use Types Packs/Day Years Used Date Smoking Tobacco: Former Smokeless Tobacco: Never Comments: Quit smoking: Alcohol Use Standard Drinks/Week Comments Yes 0 (1 standard drink = 0.6 oz pure Alcoho lic Drinks/day: Amount:1-2 alcohol) drinks; Freq:2-4/Tue ; Sex Assigned at Date Recorded Not on file documented as of this encounter Nursing Notes User, Refillwizard - 01/07/2016 9:40 AM CDT gabapentin (NEURONTIN) 300 mg capsule - MEDICATION STARTED: 12/01/2015 - LAST REFILLED ON: 12/01/2015, QTY: 30, Refills: 1, Sig: take 1 capsule by mouth nightly. (unchanged) - REFILL: 12 months - RATIONALE: This refill should last until the patient is due for an office visit. - LAST QUALIFYING VISIT WITH JUANA LEAL N: 12/01/2015 - NEXT SCHEDULED VISIT: None Powered by [employer], Reference: [id number], 01/06/2016 2:20:33 PM MARIANAT, Tonio: OTTO REFILL ([id number]) Juana Palmer APRN, LONG FILLER CIGAR ROLLER MACHINE - 01/07/2016 9:40 AM CDT Done, notified via [employer], asked her to let me know if she feels gabapentin is helping. Meaghan Cisse, RN - 01/07/2016 9:16 AM CDT Further assistance needed to complete refill request Reason: Medication newly ordered within past 12 months. Please see note below. Please increase dose if appropriate. Next Steps: Review pended order for accuracy. Sign if appropriate. Document if appt. or lab is needed for further refills. Route to [facility]. pool Requested Prescriptions Pending Prescriptions Disp Refills ??? gabapentin (NEURONTIN) 300 mg capsule 90 capsule 3 Sig: Take 1 capsule by mouth nightly. Diandra Brantley - 01/06/2016 2:20 PM CDT Pt calling advised she took 2 of the gabapentin and feels that the dose should be increased. Pt alsoneeds a refill TURE CONDITIONER OPERATOR documented in this encounter Miscellaneous Notes Patient Email (Converted) - Tim Bustamante Provider - 01/07/2016 9:40 AM CDT Prescription From User: JUANA LEAL, I refilled the gabapentin. How do you feel that it is going on this medication? Shannan, Juana Leal CNP 01/07/2016 TURE CONDITIONER OPERATOR documented in this encounter Plan of Treatment Upcoming Encounters Date Type Specialty Care Team Description 06/15/2022 Appointment Orthopedics Vanna Ulloa MD [address] [facility] [place] [address] (Wo rk) documented as of this encounter Visit Diagnoses Diagnosis Peripheral polyneuropathy Unspecified hereditary and idiopathic pe ripheral neuropathy documented in this encounter Care Teams Floor Waxer Relationship Specialty Start Date End Date Juana Leal APRN, CNP PCP - General 04/15/14 01/09/17 [address] [place] [address] documented as of this encounter
--- OUTSIDE RECORDS SUMMARY | 2022-04-22 14:01 | XMS_ITS | Encounter Summary ---
:1965 Author Organization [employer] Address [address] [place] [address] Care Team Providers Name Role Phone Antoinette Leal APRN, STRAIGHTENER HAND Primary Care Provider [phone] Encounter Details Date Type Department Care Team Description 08/14/2015 Imaging [place] [facility] Breast cancer screening [address] [place] [address] Social History Tobacco Use Types Packs/Day Years Used Date Smoking Tobacco: Never Assessed Sex Assigned at Date Recorded Not on file documented as of this encounter Plan of Treatment Upcoming Encounters Date Type Specialty Care Team Description 06/15/2022 Appointment Orthopedics Vanna Ulloa MD [address] [place], [place] [address] (Wo rk) documented as of this encounter Procedures Procedure Name Priority Date/Time Associated Diagnosis Comme nts MM MAMMOGRAM Routine 08/14/2015 12:00 PM Breast cancer Results for this SCREENING BILAT W CDT screening procedure are in CAD the results section. documented in this encounter Results MM Mammogram Screening Bilat W CAD (08/14/2015 12:00 PM CDT) Anatomical Region Laterality Modality Breast Bilateral Mammography Specimen (Source) Anatomical Location Collection Method / Collectio n Time Received Time / Laterality Volume Impressions 08/14/2015 1:19 PM CDT : BI-RADS 1 Negative (overall) Follow Up Mammogram in 1 year - Carolina canales The results and recommendations of this examination will be communicated to the patient by the [facility] and we will attempt to schedule any recommended imaging follow up with the patient. Narrative 08/14/2015 1:19 PM CDT Compared to: 03/15/2014 MM Mammogram Screening Bilateral W Cad, 01/30/2007 MM MAMMOGRAM SCREENING W CAD, 05/29/2003 MM MAMMOGRAM SCREENING W CAD Bilateral Breast Findings: Bilateral digital screening mammogram wa s performed. There are scattered areas of fibroglandular density in the b reasts. No significant mass, calcifications or o ther abnormalities are seen in either breast. Procedure Note Naun Montgomery MD - 01/14/2016 Compared to: 03/15/2014 MM Mammogram Scr eening Bilateral W Cad, 01/30/2007 MM MAMMOGRAM SCREENING W CAD, 05/29/2003 MM MAMMOGRAM SCREENING W CAD Bilateral Breast Findings: Bilateral digital screening mammogram wa s performed. There are scattered areas of fibroglandular density in the b reasts. No significant mass, calcifications or o ther abnormalities are seen in either breast. IMPRESSION : BI-RADS 1 Negative (overall) Follow Up Mammogram in 1 year - [place] canales The results and recommendations of this examination will be communicated to the patient by the [facility] and we will attempt to schedule any recommended imaging follow up with the patient. Antoinette Leal APRN, CNP RAD TERESA documented in this encounter Visit Diagnoses Diagnosis Breast cancer screening Breast screening, unspecified documented in this encounter Care Teams Occupational Therapy Director Relationship Specialty Start Date End Date Antoinette Leal APRN, CNP PCP - General 04/15/14 01/09/17 [address] [facility] [place] [address] documented as of this encounter
--- OUTSIDE RECORDS SUMMARY | 2022-04-22 14:01 | XMS_ITS | Encounter Summary ---
:1965 Author Organization [employer] [employer] Address [address] [place] [address] Care Team Providers Name Role Phone Juana Leal APRN, CNP Primary Care Provider Reason for Visit Reason Onset Date Comments Refill 01/26/2016 Dulaglutide 0.75 MG/ 0.5ML SOPN Encounter Details Date Type Department Care Team Description 01/26/2016 Refill [facility] Juana Leal, Refill ( Dulaglutide 0.75 Medicine FIELD REP, PIGMENT MAKING SUPERVISOR MG/0.5ML SOPN) [address] [facility] . [address] [place] [address] [place] [address] [phone] (Wo rk) Social History Tobacco Use Types Packs/Day Years Used Date Smoking Tobacco: Former Smokeless Tobacco: Never Comments: Quit smoking: Alcohol Use Standard Drinks/Week Comments Yes 0 (1 standard drink = 0.6 oz pure Alcoho lic Drinks/day: Amount:1-2 alcohol) drinks; Freq:2-4/Tue ; Sex Assigned at Date Recorded Not on file documented as of this encounter Nursing Notes Juana Leal APRN, CNP - 01/26/2016 2:26 PM CDT Medication refilled. Please notify patient. Thanks. Interface, Out Surescripts Prov Query - 01/26/2016 12:39 PM CDT Dulaglutide 0.75 MG/0.5ML SOPN - MEDICATION STARTED: 07/09/2015 - LAST REFILLED ON: 12/01/2015, QTY: 4, Refills: 2, Sig: inject 0.75 mg subcutaneously once a week. (changed) - WARNING: Due to an unreadable sig, manually ensure the patient is due for a renewal. - NOTIFICATION: Medication is not assigned to a protocol. - LAST QUALIFYING VISIT WITH FRAN JUANA N: 12/01/2015 - NEXT SCHEDULED VISIT: None ADDITIONAL SCHEDULING ACTIONS TAKEN: - HBA1C for multiple medications including metFORMIN (GLUCOPHAGE XR) 500 MG 24 hour release tablet (Sent to [facility]) Powered by [employer], Reference: [id number], 01/26/2016 12:39:26 PM CDT, Pool: OTTO HERNANDEZ ([id number]) Zenia Tobar - 01/26/2016 12:38 PM CDT This will require prior authorization. documented in this encounter Plan of Treatment Upcoming Encounters Date Type Specialty Care Team Description 06/15/2022 Appointment Orthopedics Vanna Ulloa MD [address] [facility] [place] [id number] (Wo rk) documented as of this encounter Visit Diagnoses Diagnosis Type 2 diabetes mellitus, controlled (HR C) - Primary Type II or unspecified type diabetes amy litus without mention of complication, not stated as uncontrolled documented in this encounter Care Teams Regional Economist Relationship Specialty Start Date End Date Juana Leal, FIELD REP, PIGMENT MAKING SUPERVISOR PCP - General 04/15/14 01/09/17 [address] [facility] [place] [address] documented as of this encounter
--- OUTSIDE RECORDS SUMMARY | 2022-04-22 14:01 | XMS_ITS | Encounter Summary ---
:1965 Author Organization [facility] Address [address] [place] [address] Care Team Providers Name Role Phone Juana Leal RAILWAY YARD ASSISTANT, FIBRE TECHNOLOGIST Primary Care Provider Encounter Details Date Type Department Care Team Description 03/11/2016 Refill Order [facility] Juana Leal, RAILWAY YARD ASSISTANT, [address] [place] [address] [facility] [facility] [phone] [place], [place] [address] (Wo rk) Social History Tobacco Use Types Packs/Day Years Used Date Smoking Tobacco: Former Smokeless Tobacco: Never Comments: Quit smoking: Alcohol Use Standard Drinks/Week Comments Yes 0 (1 standard drink = 0.6 oz pure Alcoho lic Drinks/day: Amount:1-2 alcohol) drinks; Freq:2-4/Tue ; Sex Assigned at Date Recorded Not on file documented as of this encounter Nursing Notes Meg Constantino - 03/11/2016 12:35 PM CDT Lab orders have been placed per provider. Interface, Out Surescripts Prov Query - 03/11/2016 12:31 PM CDT ORDER THE FOLLOWING: - HBA1C (PN ONLY): Previously ordered on 12/01/2015 and will on 06/28/2016 SCHEDULE THE FOLLOWING: - HBA1C (PN ONLY) BY: 05/29/2016 (Coming due as of 05/29/2016 for multiple medications including metFORMIN (GLUCOPHAGE XR) 500 MG 24 hour release tablet) - LAST QUALIFYING VISIT WITH JUANA LEAL N: 12/01/2015 - NEXT SCHEDULED VISIT: None - NEXT LAB APPOINTMENT: None Powered by [employer], Reference: [id number], 03/11/2016 12:31:37 PM CDT, Pool: OTTO REFILL ([id number]) documented in this encounter Plan of Treatment Upcoming Encounters Date Type Specialty Care Team Description 06/15/2022 Appointment Orthopedics Vanna Ulloa MD [address] [facility] [place] [address] (Wo rk) documented as of this encounter Visit Diagnoses Diagnosis Encounter for long-term (current) use of medications - Primary Encounter for long-term (current) use of other medications documented in this encounter Care Teams Tape Recorder Mechanic Relationship Specialty Start Date End Date Juana Leal, RAILWAY YARD ASSISTANT, FIBRE TECHNOLOGIST PCP - General 04/15/14 01/09/17 [address] [place] [address] documented as of this encounter
--- OUTSIDE RECORDS SUMMARY | 2022-04-22 14:01 | XMS_ITS | Encounter Summary ---
:1965 Author Organization [facility] Address [address] [place] [address] Care Team Providers Name Role Phone Antoinette Leal APRN, CNP Primary Care Provider Encounter Details Date Type Department Care Team Description 08/25/2015 [facility]ette Leal APRN, [address] [facility] [place] [address] 14[address] [facility] [phone] [place], [place] [address] (Wo rk) Social History Tobacco Use Types Packs/Day Years Used Date Smoking Tobacco: Never Assessed Sex Assigned at Date Recorded Not on file documented as of this encounter Plan of Treatment Upcoming Encounters Date Type Specialty Care Team Description 06/15/2022 Appointment Orthopedics Vanna Ulloa MD [address] [place] [address] (Wo rk) documented as of this encounter Visit Diagnoses Not on filedocumented in this encounter Care Teams Intermediate Frame Tender Relationship Specialty Start Date End Date Antoinette Leal APRN, MAGED PCP - General 04/15/14 01/09/[address] [facility] [place], [place] [address] documented as of this encounter
--- OUTSIDE RECORDS SUMMARY | 2022-04-22 14:01 | XMS_ITS | Encounter Summary ---
:1965 Author Organization [employer] Address [address] [place] [address] Care Team Providers Name Role Phone Antoinette Leal APRN, MAGED Primary Care Provider [phone] Reason for Visit Reason Onset Date Comments Prior Authorization For Medication 03/12/2016 Dulag lutide (TRULICITY) 0.75 MG/0.5ML SOPN Encounter Details Date Type Department Care Team Description 03/12/2016 Telephone [facility] Antoinette Leal, Prior Au thorization For Medicine MAGED SHORE Medication (Dulaglutide [address] (TRULICITY) [address] [address] [address] MG/0.5ML SOPN) [phone] [place] [phone] Social History Tobacco Use Types Packs/Day Years Used Date Smoking Tobacco: Former Smokeless Tobacco: Never Comments: Quit smoking: Alcohol Use Standard Drinks/Week Comments Yes 0 (1 standard drink = 0.6 oz pure Alcoho lic Drinks/day: Amount:1-2 alcohol) drinks; Freq:- ; Sex Assigned at Date Recorded Not on file documented as of this encounter Nursing Notes Margret Fox - 03/17/2016 1:01 PM CDT PA was approved - information was faxed to pharmacy. Effective until 03/12/2017 Margret Fox - 03/12/2016 4:53 PM CDT Prior Authorization What prior authorization is needed? Dulaglutide (TRULICITY) 0.75 MG/0.5ML SOPN Insurance Carrier: [employer] Pharmacy [place]rier? [place] [address] Patient advised, please allow 7-10 business days to complete. PA manually faxed. documented in this encounter Plan of Treatment Upcoming Encounters Date Type Specialty Care Team Description 06/15/2022 Appointment Orthopedics Vanna Ulloa MD [address] [facility] [place] [address] (Wo rk) documented as of this encounter Visit Diagnoses Not on filedocumented in this encounter Care Teams Protein Scientist Relationship Specialty Start Date End Date Antoinette Leal, SIDE GUIDER, LINSEED OIL TEMPERER PCP - General 04/15/14 01/09/17 1415 [facility] [place] [id number] documented as of this encounter
--- OUTSIDE RECORDS SUMMARY | 2022-04-22 14:01 | XMS_ITS | Encounter Summary ---
:1965 Author Organization [facility] Address [address] [place] [address] Care Team Providers Name Role Phone Juana Leal APRN, MAGED Primary Care Provider [phone] Reason for Visit Reason Comments Refill traZODone (DESYREL) 50 MG ta blet [Pharmacy Med Name: TRAZODONE 50MG TABLETS] Encounter Details Date Type Department Care Team Description 03/11/2016 Refill [facility] Juana Leal, Refill ( traZODone Medicine MAGED SHORE (DESYREL) 50 MG tablet [address] [Pharmacy Med Name: [facility] [address] [place] [address] TRAZODONE 50MG TABLETS]) [phone] (Wo rk) Social History Tobacco Use Types Packs/Day Years Used Date Smoking Tobacco: Former Smokeless Tobacco: Never Comments: Quit smoking: Alcohol Use Standard Drinks/Week Comments Yes 0 (1 standard drink = 0.6 oz pure Alcoho lic Drinks/day: Amount:1-2 alcohol) drinks; Freq:- ; Sex Assigned at Date Recorded Not on file documented as of this encounter Nursing Notes Sofy Gabriel LPN - 03/12/2016 1:10 PM CDT Called and spoke with pt gave her the below message. Juana Leal APRN, CNP - 03/12/2016 7:15 AM CDT Rx sent but let her know she needs to keep her upcoming physical. Thanks. Carmen Padgett RN - 03/11/2016 2:51 PM CDT Further assistance needed to complete refill request Reason: Medication newly ordered within past 12 months. Next Steps: Review pended order for accuracy. Sign. Close encounter. Requested Prescriptions Pending Prescriptions Disp Refills ??? traZODone (DESYREL) 50 MG tablet [Pharmacy Med Name: TRAZODONE 50MG TABLETS] 60 Tab 2 Sig: TAKE 1 TO 2 TABLETS BY MOUTH AT BEDTIME NEEDED FOR SLEEP Interface, Out Surescripts Prov Query - 03/11/2016 12:31 PM CDT traZODone (DESYREL) 50 MG tablet [Pharmacy Med Name: TRAZODONE 50MG TABLETS] - MEDICATION STARTED: 05/26/2015 - LAST REFILLED ON: 02/12/2016, QTY: 60, Refills: 0, Sig: take 1-2 tabs by mouth at bedtime as needed for sleep. (changed but equivalent) - REFILL: 9 months - RATIONALE: This refill should last until the patient is due for an office visit. - LAST QUALIFYING VISIT WITH JUANA LEAL: 12/01/2015 - NEXT SCHEDULED VISIT: None - SBP: 130mm Hg on 12/01/2015 - DBP: 88mm Hg on 12/01/2015 PATIENT IS DUE FOR: - HBA1C (PN ONLY) for multiple medications including metFORMIN (GLUCOPHAGE XR) 500 MG 24 hour release tablet (Sent to [facility]) Powered by [employer], Reference: [id number], 03/11/2016 12:31:36 PM CDT, Pool: OTTO MARY ([id number]) documented in this encounter Plan of Treatment Upcoming Encounters Date Type Specialty Care Team Description 06/15/2022 Appointment Orthopedics Vanna Ulloa MD [address] [facility] [place] [phone] (Wo rk) documented as of this encounter Visit Diagnoses Not on filedocumented in this encounter Care Teams Accounts Payable Professional Relationship Specialty Start Date End Date Juana Leal, PERSONNEL RESEARCH PSYCHOLOGIST, FLAKE MILLER HELPER PCP - General 04/15/14 01/09/17 [facility] [place] [address] documented as of this encounter
--- OUTSIDE RECORDS SUMMARY | 2022-04-22 14:01 | XMS_ITS | Encounter Summary ---
:1965 Author Organization [facility] Address [address] [place] [address] Care Team Providers Name Role Phone Juana Leal APRN, MAGED Primary Care Provider Reason for Visit Reason Comments Refill Encounter Details Date Type Department Care Team Description 10/02/2015 Refill [facility] Juana Leal APRN, CONTAINER FINISHER Refill [address] [place] [address] [place], [place] [address] (Wo rk) Social History Tobacco Use Types Packs/Day Years Used Date Smoking Tobacco: Never Assessed Sex Assigned at Date Recorded Not on file documented as of this encounter Nursing Notes User, Refillwizard - 10/03/2015 7:17 AM CDT TOUJEO SOLOSTAR 300 unit/mL (1.5 mL) pen [Pharmacy Med Name: TOUJEO SOLOSTAR 300UNIT/ML SOPN] - MEDICATION STARTED: 01/22/2015 - LAST REFILLED ON: 07/09/2015, QTY: 4.5, Refills: 2, Sig: inject 24 units subcutaneously daily (every 24 hours). add 2 units for priming, tdd 26 units (changed) - WARNING #1: This medication may not have been authorized by the requested provider. - WARNING #2: The patient is requesting a renewal from a different pharmacy. - WARNING #3: Due to an unreadable sig, manually ensure the patient is due for a renewal. - REFILL: 3 months (if warnings resolved) - RATIONALE: This refill should last until the patient is due for a(n) HBA1C check. - LAST QUALIFYING VISIT WITH JUANA LEAL N: 07/23/2015 - NEXT SCHEDULED VISIT: None - HBA1C: 6.4% on 05/26/2015 ADDITIONAL SCHEDULING ACTIONS TAKEN: - HBA1C for multiple medications including metFORMIN (GLUCOPHAGE-XR) 500 mg XR 24 hour tablet (Sent to [facility]) Powered by [employer], Reference: [id number], 10/02/2015 11:12:42 AM CDT, Pool: OTTO REFILL ([id number]) Meaghan Ferrer, RN - 10/03/2015 7:17 AM CDT Renewed medication per medication refill protocol. Requested Prescriptions Signed Prescriptions Disp Refills ??? TOUJEO SOLOSTAR 300 unit/mL (1.5 mL) pen 9 mL 0 Sig: USE 24 UNITS SUBCUTANEOUSLY DAILY -- ADD 2 UNITS FOR PRIMING (TOTAL DAILY DOSE OF 26 UNITS) Authorizing Provider: JUANA LEAL Ordering User: MEAGHAN FERRER STEWARD documented in this encounter Plan of Treatment Upcoming Encounters Date Type Specialty Care Team Description 06/15/2022 Appointment Orthopedics Vanna Ulloa MD [address] [facility] [place] [phone] (Wo rk) documented as of this encounter Visit Diagnoses Not on filedocumented in this encounter Care Teams Business Proposal Rep Relationship Specialty Start Date End Date Juana Leal, BAND BUILDER, CONTAINER FINISHER PCP - General 04/15/14 01/09/[address] [facility] [place] [id number] documented as of this encounter
--- OUTSIDE RECORDS SUMMARY | 2022-04-22 14:01 | XMS_ITS | Encounter Summary ---
:1965 Author Organization [facility] Address [address] [place] [address] Care Team Providers Name Role Phone Antoinette Leal APRN, IRISH MOSS BLEACHER Primary Care Provider [phone] Reason for Visit Reason Onset Date Comments [facility] Phone Visit 01/26/2016 Encounter Details Date Type Department Care Team Description 01/26/2016 Care Coord Phone Tran Greco R N [facility] Phone Visit Medicine [address] [facility] [address] [facility] [place] [address] [place] [address] [phone] Social History Tobacco Use Types Packs/Day Years Used Date Smoking Tobacco: Former Smokeless Tobacco: Never Comments: Quit smoking: Alcohol Use Standard Drinks/Week Comments Yes 0 (1 standard drink = 0.6 oz pure Alcoho lic Drinks/day: Amount:1-2 alcohol) drinks; Freq:2-4/Tue ; Sex Assigned at Date Recorded Not on file documented as of this encounter Progress Notes Tran Rodriguez RN - 02/03/2016 1:31 PM CDT Prior Authorization for Trulicity submitted to [facility] twice and both requests were denied for authroization criteria not met. Since Liz has selected [facility] as her PMAP beginning 02/13, she is hopeful she will not have any problem with coverage going forward. In the interim, I contacted a Pharm aceutical Rep from [employer] and requested samples to cover until she switches to [facility]. Samples were received, entered into [employer], and stored in the Injection Room refrigerator. Notified Liz she may flower buncher or picker her samples any time. Tran Rodriguez RN - 01/26/2016 4:28 PM CDT [employer] - Phone Call Contact with: Liz Reason for call: Care Coordination Discussion/actions: Liz is calling to request assistance with a PA for [employer]. She states her lost his job and medical benefits. Since they could not afford COBRA, Liz applied through [employer]. Liz was approved for [employer]. She will not be able to select a PMAP until 02/14/16. She is completely out of Trulicity and is due for her weekly injection tomorrow. Liz states her Bg readings have remained at goal, her last A1c result in November was 6.3. Informed Liz that PA typically take several days to process, so she will not receive her medication by tomorrow. Advised to be extra mindful of portions sizes and counting CHO choices, trying to stayat 2-3 per meal. Liz agrees. Shared plan: Completed PA for [facility]. Liz verbalized understanding and agreed with plan of care and follow up. documented in this encounter Plan of Treatment Upcoming Encounters Date Type Specialty Care Team Description 06/15/2022 Appointment Orthopedics Vanna Ulloa MD [address] [facility] [place] [phone] (Wo rk) documented as of this encounter Visit Diagnoses Diagnosis Health fpc, active care coordinati on - Primary Type 2 diabetes mellitus, controlled (HR C) Type II or unspecified type diabetes amy litus without mention of complication, not stated as uncontrolled documented in this encounter Care Teams Interior Block Wirer Relationship Specialty Start Date End Date Antoinette Leal, DISPLAY COORDINATOR, IRISH MOSS BLEACHER PCP - General 04/15/14 01/09/17 [address] [place] [address] documented as of this encounter
--- OUTSIDE RECORDS SUMMARY | 2022-04-22 14:01 | XMS_ITS | Encounter Summary ---
:1965 Author Organization [facility] Address [address] [place] [address] Care Team Providers Name Role Phone Antoinette Leal APRN, CNP Primary Care Provider Encounter Details Date Type Department Care Team Description 01/09/2016 [facility]inette Leal APRN, [address] [facility] [place] [address] 14[address] [facility] [phone] [place], [place] [address] (Wo rk) Social History [...] 06/15/2022 Appointment Orthopedics Vanna Ulloa MD [address] [place], [place] [phone] (Wo rk) documented as of this encounter Visit Diagnoses Not on filedocumented in this encounter Care Teams Thread Machine Operator Relationship Specialty Start Date End Date Antoinette Leal APRN, MAGED PCP - General 04/15/14 01/09/[address] [place] [address] documented as of this encounter
--- OUTSIDE RECORDS SUMMARY | 2022-04-22 14:01 | XMS_ITS | Encounter Summary ---
:1965 Author Organization [facility] Address [address] [place] [address] Care Team Providers Name Role Phone Antoinette Leal APRN, CNP Primary Care Provider [phone] Encounter Details Date Type Department Care Team Description 01/10/2016 Notes/Orders [facility] Antoinette Leal, Peripher al Medicine MAGED SHORE polyneuropathy (Primary [address] [address] [place] [address] [place], [place] [phone] [address] Social History Tobacco Use Types Packs/Day Years [...] 06/15/2022 Appointment Orthopedics Vanna Ulloa MD [address] [place], [place] [address] (Wo rk) documented as of this encounter Visit Diagnoses Diagnosis Peripheral polyneuropathy - Primary Unspecified hereditary and idiopathic pe ripheral neuropathy documented in this encounter Care Teams Business Services Vice President Relationship Specialty Start Date End Date Thiner, Antoinette N, HEDIS MANAGER, ASSISTANT GUEST SERVICES MANAGER PCP - General 04/15/14 01/09/17 14[address] [facility] [place], [place] [address] documented as of this encounter
--- OUTSIDE RECORDS SUMMARY | 2022-04-22 14:02 | XMS_ITS | Encounter Summary ---
:1965 Author Organization [facility] Address [address] [place] [address] Care Team Providers Name Role Phone Antoinette Leal APRN, ROBOTICS SYSTEMS ENGINEER Primary Care Provider Reason for Visit Reason Comments [facility] Phone Visit Encounter Details Date Type Department Care Team Description 04/03/2015 Care Coord Phone Tran Greco R N [facility] Phone Visit Medicine [address] [facility] [address] [facility] [place] [address] [place] [address] [phone] Social History Tobacco Use Types Packs/Day Years Used Date Smoking Tobacco: Never Assessed Sex Assigned at Date Recorded Not on file documented as of this encounter Progress Notes Tran Rodriguez RN - 04/06/2015 10:58 PM CST RN Broadcast Checker - Diabetes Follow-Up Current diabetes medication regimen: Lantus 25 units in PM Vicotza 0.6 mg daily in PM Metformin ER 1,500 mg in the AM CURRENT GLUCOSE PATTERNS: since 03/31/15 Before breakfast: 140 - 170 Before dinner: 122 - 146 2 hours postmeal: 139 - 173 Hypoglycemia (previous two weeks): none Assessment/education: Liz is calling to report increased and intolerable heartburn sx since starting Victoza. Initially, Liz did not have any side effects from Victoza until she increased from 0.6 mg to 1.2 mg. She was advised to resume the 0.6 mg dose, but the heartburn side effects continued. Liz believes the heartburn sx have actually worsened. Liz reports waking with severe heartburn, coughing, and acid in her throat. She feels compelled todrink milk to try and neutralize the burning. Liz has since also been taking TUMS before bed, without any relief. Liz already takes Prilosec 20 mg daily and is wondering if she can increase her dose to BID. I consulted with MARCOS Hughes who advised the following options to decrease heartburn side effects; move Victoza dosing from HS to AM and increase Prilosec 20 mg to BID. If the heartburn does not improve, may consider switching to Trulicilty which has a much lower incidence of GI side effects and would be taken once weekly. I informed Liz of Gloria's recommendations above, she agrees. I advised she may also sleep with her head propped on pillows to reduce reflux while sleeping. Ideally, Liz does not want to switch medication because she is very happy with her increased glucose control and she likes taking the Victoza at the same time as her Lantus. Liz is afraid she may not remember the once weekly dosing of Trulicity. I reassured Liz that Trulicity is another GLP-1 agonist, so it will likely offer the same glucose control. Also, I noted Trulicity provides the same mattress spring encaser coupons. Teach back method used to verify understanding. Shared plan: Move Lantus and Victoza dosing from HS to AM. Increase Prilosec 20 mg to BID. If heartburn sx do not improve, call clinic to request new prescription for Trulicity. Phone follow up the week of 04/14/15. Call if sx of hypoglycemia or glucose readings < 70 mg/dL. Liz verbalized understanding and agreed with plan of care and follow up. TROLYSIS NEEDLE OPERATOR documented in this encounter Plan of Treatment Upcoming Encounters Date Type Specialty Care Team Description 06/15/2022 Appointment Orthopedics Vanna Ulloa MD [address] [place] [address] (Wo rk) documented as of this encounter Visit Diagnoses Diagnosis Complex care coordination - Primary Diabetes type 2, uncontrolled Type II or unspecified type diabetes amy litus without mention of complication, uncontrolled documented in this encounter Care Teams Construction Project Administrator Relationship Specialty Start Date End Date Antoinette Leal, APPRENTICE JOCKEY, ROBOTICS SYSTEMS ENGINEER PCP - General 04/15/14 01/09/17 1415 [place] [id number] documented as of this encounter
--- OUTSIDE RECORDS SUMMARY | 2022-04-22 14:02 | XMS_ITS | Encounter Summary ---
:1965 Author Organization [employer] Address [address] [place] [address] Care Team Providers Name Role Phone Antoinette Leal APRN, GARBAGE PICK UP WORKER Primary Care Provider Reason for Visit Reason Comments Lab Draw Encounter Details Date Type Department Care Team Description 04/17/2015 Refill Order [facility] Pearl Cardenas, Lab Draw [address] [address] [facility] [phone] [place], [place] [address] (Wo rk) Social History Tobacco Use Types Packs/Day Years Used Date Smoking Tobacco: Never Assessed Sex Assigned at Date Recorded Not on file documented as of this encounter Nursing Notes Meg Constantino - 04/21/2015 12:30 PM CST Lab orders have been placed per provider. Lab reminder letter sent. ORATE SPECIALIST Tin Melton - 04/21/2015 12:30 PM CST ORDER THE FOLLOWING: - HBA1C: Previously ordered on 02/24/2015 and will on 02/25/2016 SCHEDULE THE FOLLOWING: - HBA1C BY: 05/25/2015 (Coming due as of 05/25/2015 for multiple medications including insulin glargine (LANTUS SOLOSTAR) 100 unit/mL (3 mL) pen) - LAST QUALIFYING VISIT WITH CARDENASPEARL CARTWRIGHT Breanne: 12/02/2014 (A more recent visit in family medicine was found) - NEXT SCHEDULED VISIT: None - NEXT LAB APPOINTMENT: None Powered by [facility], Reference: [id number], 04/17/2015 7:18:10 AM CORPORATE SPECIALIST, Pool: OTTO HERNANDEZ ([id number]) ORATE SPECIALIST documented in this encounter Miscellaneous Notes Letter - Pearl Cardenas MBBS - 04/17/2015 12:00 AM CST Images from the original note were not included. [facility] Liz Phelps [address] [place] [id number] April 21, 2015 Dear Liz Phelps, We recently received a renewal request for your prescription(s). While reviewing your chart, we noticed that you are going to be due for nonfasting labwork including Hgb A1C within the next 60 days. At [facility], your health care is important to us. Please call [phone] for lab appointment scheduling and hours of service. Thank you for choosing [facility] for your health care needs. [facility] Primary Care Team ORATE SPECIALIST documented in this encounter Plan of Treatment Upcoming Encounters Date Type Specialty Care Team Description 06/15/2022 Appointment Orthopedics Vanna Ulloa MD [address] [facility] [place] [address] (Wo rk) documented as of this encounter Visit Diagnoses Diagnosis Encounter for long-term (current) use of medications - Primary Encounter for long-term (current) use of other medications documented in this encounter Care Teams Telegraph Editor Relationship Specialty Start Date End Date Antoinette Leal APRN, GARBAGE PICK UP WORKER PCP - General 04/15/14 01/09/17 [address] [facility] [place] [id number] documented as of this encounter
--- OUTSIDE RECORDS SUMMARY | 2022-04-22 14:02 | XMS_ITS | Encounter Summary ---
:1965 Author Organization [facility] Address [address] [place] [address] Care Team Providers Name Role Phone Juana Leal APRN, MAGED Primary Care Provider Reason for Visit Reason Comments Refill Encounter Details Date Type Department Care Team Description 05/07/2015 Refill [facility] Juana Leal APRN, COMBER SETTER Refill [address] [place] [address] [place] [address] [phone] (Wo rk) Social History Tobacco Use Types Packs/Day Years Used Date Smoking Tobacco: Never Assessed Sex Assigned at Date Recorded Not on file documented as of this encounter Nursing Notes Jeanette Erazo V, LEAN ENGINEER - 05/08/2015 6:51 AM CST Requested prescription was last renewed on 05/07/15 and sent to [facility] pharmacy for 6 mL. Pt notified via [place]. Requested Prescriptions Refused Prescriptions Disp Refills ??? VICTOZA 2-MEDHAT 0.6 mg/0.1 mL (18 mg/3 mL) pen [Pharmacy Med Name: VICTOZA 18MG/3ML INJ PEN 2 X 3ML] 6 mL Sig: INJECT 1.2MG SUBCUTANEOUSLY DAILY. BEGIN AT 0.6MG DAILY FOR 7 DAYS, THEN INCREASE TO 1.2MG DAILY. Refused By: JEANETTE ERAZO V Reason for Refusal: REQUEST ALREADY RESPONDED TO BY OTHER MEANS (E.G. PHONE OR FAX) ING COORDINATOR User, Vilmanubia - 05/08/2015 6:51 AM CST VICTOZA 2-MEDHAT 0.6 mg/0.1 mL (18 mg/3 mL) pen [Pharmacy Med Name: VICTOZA 18MG/3ML INJ PEN 2 X 3ML] - MEDICATION STARTED: 03/19/2015 - LAST REFILLED ON: 03/19/2015, QTY: 6, Refills: 0, Sig: inject 1.2 mg subcutaneously daily (every 24 hours). begin at 0.6 mg daily for 7 days, then increase to 1.2 mg daily. (changed) - WARNING: A duplicate request was processed on 05/06/2015. - NOTIFICATION: HBA1C is abnormal (10.0% is greater than 8.0%) - REFILL: 3 months (if notifications and warnings resolved) - RATIONALE: This refill should last until the patient is due for a(n) HBA1C check. - LAST QUALIFYING VISIT WITH JAUNA LEAL N: 02/24/2015 - NEXT SCHEDULED VISIT: None - HBA1C: 10.0% on 02/24/2015 Powered by [employer] Reference: [id number], 05/07/2015 6:57:12 PM Tonio PATTERSON: OTTO HERNANDEZ ([id number]) ING COORDINATOR documented in this encounter Miscellaneous Notes Patient Email (Converted) - Tim Bustamante Provider - 05/08/2015 6:51 AM BILLING COORDINATOR Reason for refusal From User: JEANETTE ERAZO V The denial you have just received is because the prescription that was requested has already been transmitted to a pharmacy. [facility] [place] [place] (# [phone]) on 05/07/15. Please contact pharmacy for refill. If you need to switch pharmacies, please contact your preferred pharmacy to transfer your prescription(s). Thank you. ING COORDINATOR documented in this encounter Plan of Treatment Upcoming Encounters Date Type Specialty Care Team Description 06/15/2022 Appointment Orthopedics Vanna Ulloa MD [address] [facility] [place] [phone] (Wo rk) documented as of this encounter Visit Diagnoses Not on filedocumented in this encounter Care Teams Pari Mutuel Clerk Relationship Specialty Start Date End Date Juana Leal, ELECTRICIAN TELEPHONE, COMBER SETTER PCP - General 04/15/14 01/09/17 1415 [facility] [place] [id number] documented as of this encounter
--- OUTSIDE RECORDS SUMMARY | 2022-04-22 14:02 | XMS_ITS | Encounter Summary ---
:1965 Author Organization [facility] Address [address] [place] [address] Care Team Providers Name Role Phone Antoinette Leal APRN, MAGED Primary Care Provider Reason for Visit Reason Comments [facility] Phone Visit Encounter Details Date Type Department Care Team Description 05/22/2015 Care Coord Phone Tran Greco R N [facility] Phone Visit Medicine 14[address] [facility] [address] [facility] [place] [address] [place] [address] [phone] Social History Tobacco Use Types Packs/Day Years Used Date Smoking Tobacco: Never Assessed Sex Assigned at Date Recorded Not on file documented as of this encounter Progress Notes Tran Rodriguez RN - 05/23/2015 3:39 PM CST RN Lead Carpenter - Diabetes Follow-Up Current diabetes medication regimen: Lantus 24 units AM Victoza 0.6 mg AM Metformin XR 1,500 mg daily CURRENT GLUCOSE PATTERNS: since 05/01/15 Before breakfast: 122 - 148 (one reading of 168) Before dinner: 75, 88 - 128 2 hours postmeal: 127 - 163 Hypoglycemia (previous two weeks): none Assessment/education: Liz is calling to review her BG readings, as directed. After struggling withGI side effects from Victoza at 1.2 mg daily, Liz decreased her Vicotza back to the starting dose of 0.6 mg daily. Overall, the response to her post-pranial BG readings has been excellent, despite the fast that she is at a sub-therapeutic dose. Since she decreased the Victoza back to 0.6 mg daily, Liz has not had any further acid reflux or nausea side effects. Liz notes one pre-prandial BG reading of 75 where she felt like she was hypoglycemic. She ate 3 pieces of hard candy and immediately felt better. Liz recalls being a lot more active than normal that day and not eating very much for lunch. Since she is very busy during the day, Liz doesn't alwayshave time for a meal. I reviewed the causes for hypoglycemia and stressed the importance of not skipping meals. If Liz is going to be more active than normal or not eat a full meal, I recommended shecarry a CHO snack such as a protein bar. Liz agrees. Liz is planning a cruise to [place] at the end of May. Overall, she is very happy with her response to Victoza. She notes her insurance coverage changed to [employer] as of 05/16/15. I suggested the possibility of switching from Victoza to Trulicity, which has a lower incidence of GI side effects with the once weekly dosing. However, [employer] will require a PA with failure of 2 injectable GLP-1 agonist medications for coverage of Trulicity. Since Liz is going to be on vacation, she would rather not make any changes to her medications until after her trip. Plus, she just picked up arefill of her Victoza which will last 2 months because of her decreased dose. Teach back method used to verify understanding. Shared plan: Continue current insulin and medication regimen. SMBG tid, record readings. DM follow up with Antoinette Leal on 05/26/15. Phone follow up in 1 month, after vacation. Call if sx of hypoglycemia or glucose readings < 70 mg/dL. Liz verbalized understanding and agreed with plan of care and follow up. COMMUNICATIONS CABLE JOINTER documented in this encounter Plan of Treatment Upcoming Encounters Date Type Specialty Care Team Description 06/15/2022 Appointment Orthopedics Vanna Ulloa MD [address] [facility] [place] [address] (Wo rk) documented as of this encounter Visit Diagnoses Diagnosis [facility] penit[facility]iary, active care coordinati on - Primary Diabetes type 2, uncontrolled Type II or unspecified type diabetes amy litus without mention of complication, uncontrolled documented in this encounter Care Teams Head Mva Reactor Operator Relationship Specialty Start Date End Date Antoinette Leal, EPIC WILLOW SPECIALIST, DRIVER/GUIDE PCP - General 04/15/14 01/09/17 [address] [facility] [place] [address] documented as of this encounter
--- OUTSIDE RECORDS SUMMARY | 2022-04-22 14:02 | XMS_ITS | Encounter Summary ---
:1965 Author Organization [facility] Address [address] [place] [address] Care Team Providers Name Role Phone Antoinette Leal APRN, IRRIGATION EQUIPMENT INSTALLER Primary Care Provider Reason for Visit Reason Comments [facility] Phone Visit Encounter Details Date Type Department Care Team Description 07/07/2015 Care Coord Phone Tran Greco R N [facility] Phone Visit Medicine 1415 [facility] [address] [facility] [place] [address] [place] [address] [phone] Social History Tobacco Use Types Packs/Day Years Used Date Smoking Tobacco: Never Assessed Sex Assigned at Date Recorded Not on file documented as of this encounter Progress Notes Tran Rodriguez RN - 07/09/2015 5:08 PM CST RN Passenger Service Agent - Diabetes Follow-Up Current diabetes medication regimen: Lantus 24 units AM Victoza 0.6 mg AM Metformin XR 1,500 mg daily CURRENT GLUCOSE PATTERNS: Liz does not have her Log Book with her, these readings are from memory. Before breakfast: 128 - 150 Before dinner: 85 - 130 2 hours postmeal: 120 - 160 Hypoglycemia (previous two weeks): none Assessment/education: Liz called to review her BG readings, but when I returned her call, she was away from home and did not have her Log Book. However, Liz assures me she knows her BG readings byheart and wanted to review them by memory. Liz continues to take Victoza 0.6 mg daily because she could not tolerate titrating up to 1.2 mg due to severe acid reflux. She decided not to change medications and remain at the 0.6 mg dose becauseof an upcoming vacation, she did not want to make any changes prior to her trip. Overall, the response to her post-pranial BG readings has been excellent, despite the fact that she remains at a sub-therapeutic dose. Unfortunately, Liz reports she has struggled with continued acid reflux side effects, but has been managing with Tums. She knows she would never be able to tolerate increasing her dose back up to 1.2 mg since the reflux has been an intermittent problem for 2 months now. Liz and I previously reviewed other options for GLP-1 agonists. She is very interested in Trulicity because it is administered once weekly and likely would have a lower incidence of side effects. I explained that Trulicity will require a PA, therefore it may or may not be covered. Liz requests I complete the PA for Trulicity. If approved, she will register for another savings card through [employer] to see if the cost is affordable. Liz reports frustration over the cost of her Lantus. When she went to potato picker her refill, the costwas almost $300 (even with the savings card) because of her deductible. I advised Liz that switching to Toujeo would keep her co-pay at $15 per month, plus apply up to $500 toward her deductible. Since Liz already has the [employer] Savings Card, she does not need to register again. Liz agrees and would like a new prescription for Toujeo, once she runs out of Lantus. Teach back method used to verify understanding. Shared plan: Continue current insulin and medication regimen. Switch Lantus to Toujeo for cost savings with next refill. Completed PA for Trulicity, will switch from Victoza to Trulicity if approved (anot not cost prohibitive). SMBG tid, record readings. Phone follow up next week. Call if sx of hypoglycemia or glucose readings < 70 mg/dL. Liz verbalized understanding and agreed with plan of care and follow up. ER ASSISTANT documented in this encounter Plan of Treatment Upcoming Encounters Date Type Specialty Care Team Description 06/15/2022 Appointment Orthopedics Vanna Ulloa MD [address] [facility] [place] [address] (Wo rk) documented as of this encounter Visit Diagnoses Diagnosis Type 2 diabetes mellitus, controlled (HR C) - Primary Type II or unspecified type diabetes amy litus without mention of complication, not stated as uncontrolled Health fpc, active care coordinati on documented in this encounter Care Teams Licensed Aircraft Maintenance Engineer Relationship Specialty Start Date End Date Antoinette Leal, ENGINE INSTALLER, IRRIGATION EQUIPMENT INSTALLER PCP - General 04/15/14 01/09/17 [address] [place] [id number] documented as of this encounter
--- OUTSIDE RECORDS SUMMARY | 2022-04-22 14:02 | XMS_ITS | Encounter Summary ---
:1965 Author Organization [email or web address] Address [address] [place] [address] Care Team Providers Name Role Phone Antoinette Leal APRN, INSTRUCTOR DANCING Primary Care Provider [phone] Reason for Visit Reason Comments [facility] Phone Visit Encounter Details Date Type Department Care Team Description 03/26/2015 Care Coord Phone Tran Greco R N [facility] Phone Visit Medicine [address] [facility] [address] [facility] [place] [address] [place] [address] [phone] Social History Tobacco Use Types Packs/Day Years Used Date Smoking Tobacco: Never Assessed Sex Assigned at Date Recorded Not on file documented as of this encounter Progress Notes Tran Rodriguez RN - 03/26/2015 4:21 PM CST RN Cement Production Plant Operator - Diabetes Follow-Up Current diabetes medication regimen: Lantus 27 units daily Victoza 0.6 mg daily Metformin 500 mg TID CURRENT GLUCOSE PATTERNS: since 03/20/15 Before breakfast: 131 - 239 Before dinner: 139 - 180 2 hours postmeal: 158 - 178 Hypoglycemia (previous two weeks): none Assessment/education: Liz is calling to review her BG readings, as directed. Liz was able to start taking Victoza right away, so she just finished her first week at 0.6 mg. She does not have any questions about administration. Liz is thrilled with the steady decrease in her BG. The only side effect Liz has noticed is an increase in loose stools. She plans to increase her Victoza dose to 1.2 mg this evening. I advised Liz to decrease the size of her meals to avoid the side effects of nauseaand diarrhea. If diarrhea becomes a problem, we may need to decrease her metformin dose. I pointed out that Liz's BG has decreased almost 100 points since starting Victoza. Because her BGis gradually decreasing and will continue to decrease with the increase in her Victoza dose, I advised Liz to decrease her Lantus by 2 units to avoid any potential hypoglycemia. If Liz's BG continues to decrease below 100, she may further decrease her dose by another 1-2 units. Liz states she continues to count her CHO choices and is trying to stay at 3 CHO choices per meal. Teach back method used to verify understanding. Shared plan: Per DM SO, decrease Lantus to 25 units daily. If BG decreases below 100, decrease Lantus another 1-2units. Per DM SO, increase Victoza to 1.2 mg daily. SMBG tid, record readings. Count CHO choices and try to stay at 3 choices per meal. Avoid snacking after dinner and during the night. Use non-CHO foods to satisfy hunger, only if needed. Phone follow up next week to review BG readings. Call if sx of hypoglycemia or glucose readings < 70 mg/dL. Liz verbalized understanding and agreed with plan of care and follow up. OR OFFICE ASSISTANT documented in this encounter Plan of Treatment Upcoming Encounters Date Type Specialty Care Team Description 06/15/2022 Appointment Orthopedics Vanna Ulloa MD [address] [facility] [place] [address] (Wo rk) documented as of this encounter Visit Diagnoses Diagnosis Complex care coordination - Primary Diabetes type 2, uncontrolled Type II or unspecified type diabetes amy litus without mention of complication, uncontrolled documented in this encounter Care Teams Railroad Dispatcher Relationship Specialty Start Date End Date Antoinette Leal, LEATHER BELT LOOP CUTTER, INSTRUCTOR DANCING PCP - General 04/15/14 01/09/17 1415 [place] [phone] (work) documented as of this encounter
--- OUTSIDE RECORDS SUMMARY | 2022-04-22 14:02 | XMS_ITS | Encounter Summary ---
:[address] [facility] Address [address] [place] [address] Care Team Providers Name Role Phone Antoinette Leal APRN, OINTMENT MILL TENDER Primary Care Provider Reason for Visit Reason Comments [facility] Phone Visit Encounter Details Date Type Department Care Team Description 04/16/2015 Care Coord Phone Tran Greco R N [facility] Phone Visit Medicine [address] [facility] [address] [facility] [place] [address] [place] [address] [phone] Social History Tobacco Use Types Packs/Day Years Used Date Smoking Tobacco: Never Assessed Sex Assigned at Date Recorded Not on file documented as of this encounter Progress Notes Tran Rodriguez RN - 04/19/2015 10:05 PM CST RN Collet Maker - Diabetes Follow-Up Current diabetes medication regimen: Lantus 24 units in AM Vicotza 0.6 mg daily in AM Metformin ER 1,500 mg in the AM CURRENT GLUCOSE PATTERNS: since 04/04/15 Before breakfast: 125 - 176 Before dinner: 124 - 164 2 hours postmeal: 125 - 177 Hypoglycemia (previous two weeks): none Assessment/education: Liz is calling to review her BG readings, as directed. Overall, Liz is very happy to report a significant decrease in her heartburn sx since switching her Victoza dose from PM to AM. Initially, Liz did not have any side effects from Victoza. It wasn't until she increased her dose from 0.6 mg to 1.2 mg that the heartburn became noticeable and unbearable. She was advised to resume the 0.6 mg dose, but the heartburn side effects continued. Liz then switched her Victoza dosing to the morning and felt much better. Liz did not need to increase her Prilosec dose to BID, rather she has continued her once daily dosing. Because she likes to take all her medication at the same time, Liz adjusted her Lantus to the morning as well. Since her BG has continued to gradually decrease, Liz decreased her Lantus by one unit to prevent hypoglycemia. She does not want to increase her dose of Victoza since her BG has been at goal and is afraid her heartburn sxmay return with the larger dose. Liz is very happy with her increased glucose control and likes taking the Victoza at the same timeas her Lantus. Therefore, she does not want to switch medication. If the heartburn sx return, she may consider switching to Trulicilty which has a much lower incidence of GI side effects and would be taken once weekly. Teach back method used to verify understanding. Shared plan: Continue current insulin and medication regimen. SMBG tid, record readings. Phone follow up in 2 weeks. Call if sx of hypoglycemia or glucose readings < 70 mg/dL. Liz verbalized understanding and agreed with plan of care and follow up. AG APPLIQUER documented in this encounter Plan of Treatment Upcoming Encounters Date Type Specialty Care Team Description 06/15/2022 Appointment Orthopedics Vanna Ulloa MD [address] [facility] [place] [address] (Wo rk) documented as of this encounter Visit Diagnoses Diagnosis Complex care coordination - Primary Diabetes type 2, uncontrolled Type II or unspecified type diabetes amy litus without mention of complication, uncontrolled documented in this encounter Care Teams Curtains And Draperies Salesperson Relationship Specialty Start Date End Date Antoinette Leal, WATER/WASTEWATER PROJECT MANAGER, OINTMENT MILL TENDER PCP - General 04/15/14 01/09/17 1415 [facility] [place] [address] documented as of this encounter
--- OUTSIDE RECORDS SUMMARY | 2022-04-22 14:02 | XMS_ITS | Encounter Summary ---
:1965 Author Organization [facility] Address [address] [place] [address] Care Team Providers Name Role Phone Antoinette Leal APRN, MAGED Primary Care Provider Encounter Details Date Type Department Care Team Description 05/26/2015 Lab Visit [facility] Diabetes type 2, [facility] ([facility] [place] [id number] Social History Tobacco Use Types Packs/Day Years Used Date Smoking Tobacco: Never Assessed Sex Assigned at Date Recorded Not on file documented as of this encounter Plan of Treatment Upcoming Encounters Date Type Specialty Care Team Description 06/15/2022 Appointment Orthopedics Vanna Ulloa MD [address] [place], [place] [phone] (Wo rk) documented as of this encounter Procedures Procedure Name Priority Date/Time Associated Diagnosis Comme nts HEMOGLOBIN A1C, STAT 05/26/2015 11:11 Diabetes type 2, Resu lts for this RAPID AM HEAD CUSTODIAN uncontrolled (HRC) procedure are in the results section. EXTRA SERUM STAT 05/26/2015 11:06 Results for this SEPARATOR TUBE AM HEAD CUSTODIAN procedure are in (YELLOW) the results section. documented in this encounter Results (ABNORMAL) HEMOGLOBIN A1C, RAPID (05/26/2015 11:11 AM HEAD CUSTODIAN) Analysis Performed At [facility] Time Signature Hemoglobin A1C 6.4 (H) 4.0 - 5.6 HP CONVERSION Rapid % Comment: The Rapid A1c test is designed for monit oring patients with an established diagnosis of diabetes amy litus. ??The rapid method is not suitable to establish the intial diagnosis of diabetes melitus. Specimen Anatomical Collection Method Collection Time Receive d Time (Source) Location / / Volume Laterality 05/26/2015 11:11 05/26/2015 AM HEAD CUSTODIAN 11:11 AM HEAD CUSTODIAN Narrative HP CONVERSION - 05/26/2015 11:21 AM HEAD CUSTODIAN Performed at [facility], [address] [place] [address] CLIA number [id number] Antoinette Leal APRN, MAGED LAB_1 Performing Organization Address [facility] Phon e Number HP CONVERSION EXTRA SERUM SEPARATOR TUBE (YELLOW) (05/26/2015 11:06 AM HEAD CUSTODIAN) athologist Signature Extra SST Top Drawn HP CONVERSION Drawn Specimen (Source) Anatomical Collection Method Collection Time Re ceived Time Location / / Volume Laterality 05/26/2015 11:06 AM HEAD CUSTODIAN Narrative HP CONVERSION - 05/26/2015 11:06 AM HEAD CUSTODIAN Performed at [facility], [address] [place] [address] CLIA number [id number] Antoinette Leal APRN, MAGED LAB_1 Performing Organization Address [facility] Phon e Number HP CONVERSION documented in this encounter Visit Diagnoses Diagnosis Diabetes type 2, uncontrolled Type II or unspecified type diabetes amy litus without mention of complication, uncontrolled documented in this encounter Care Teams Ancillary Specialist Relationship Specialty Start Date End Date Antoinette Leal APRN, MAGED PCP - General 04/15/14 01/09/[address] [place] [address] documented as of this encounter
--- OUTSIDE RECORDS SUMMARY | 2022-04-22 14:02 | XMS_ITS | Encounter Summary ---
:[address] [facility] Address [address] [place] [address] Care Team Providers Name Role Phone Juana Lael APRN, INSURANCE LOSS CONTROL SURVEYOR Primary Care Provider Reason for Visit Reason Comments Medication Refill Question Encounter Details Date Type Department Care Team Description 07/10/2015 Telephone [facility] Juana Leal, Medicati on Refill Medicine [facility] Question [facility] [address] [place] [address] [place], [place] [phone] (Wo rk) Social History Tobacco Use Types Packs/Day Years Used Date Smoking Tobacco: Never Assessed Sex Assigned at Date Recorded Not on file documented as of this encounter Nursing Notes Lyndsay Monroe, RN - 07/10/2015 3:55 PM CST Pt requesting refill while waiting on PA status for Trulicity, new rx sent to [facility] as requested Renewed medication per medication refill protocol. Requested Prescriptions Signed Prescriptions Disp Refills ??? liraglutide (VICTOZA 2-MEDHAT) 0.6 mg/0.1 mL (18 mg/3 mL) pen 6 mL 3 Sig: Inject 0.6 mg subcutaneously daily (every 24 hours). Authorizing Provider: JUANA LEAL Ordering User: LYNDSAY MONROE Per RN CC note 07/07/15: Shared plan: Continue current insulin and medication [...] with plan of care and follow up. TRONEURODIAGNOSTIC TECHNOLOGIST Shyla Vides - 07/10/2015 3:50 PM CST Pt calling to speak with a nurse as she needs a refill but would first need to discuss switching medications. Transferred to triage TRONEURODIAGNOSTIC TECHNOLOGIST documented in this encounter Plan of Treatment Upcoming Encounters Date Type Specialty Care Team Description 06/15/2022 Appointment Orthopedics Vanna Ulloa MD [address] [facility] [place] [id number] (Wo rk) documented as of this encounter Visit Diagnoses Diagnosis Type 2 diabetes mellitus, controlled (HR C) - Primary Type II or unspecified type diabetes amy litus without mention of complication, not stated as uncontrolled documented in this encounter Care Teams Leather Fitter Relationship Specialty Start Date End Date Juana Leal, AUTOMOTIVE ACCESSORY INSTALLER, INSURANCE LOSS CONTROL SURVEYOR PCP - General 04/15/14 01/09/17 1415 [place] [id number] documented as of this encounter
--- OUTSIDE RECORDS SUMMARY | 2022-04-22 14:02 | XMS_ITS | Encounter Summary ---
:1965 Author Organization [facility] Address [address] [place] [address] Care Team Providers Name Role Phone Juana Leal APRN, MAGED Primary Care Provider Reason for Visit Reason Comments Refill Encounter Details Date Type Department Care Team Description 05/06/[facility] Juana Leal APRN, FRYLINE ATTENDANT Refill [address] [place] [address] [place], [place] [address] (Wo rk) Social History Tobacco Use Types Packs/Day Years Used Date Smoking Tobacco: Never Assessed Sex Assigned at Date Recorded Not on file documented as of this encounter Nursing Notes Vicente Vaughan RN - 05/07/2015 7:14 PM CST Renewed medication per medication refill protocol. Requested Prescriptions Signed Prescriptions Disp Refills ??? VICTOZA 2-MEDHAT 0.6 mg/0.1 mL (18 mg/3 mL) pen 6 mL 0 Sig: INJECT 1.2MG SUBCUTANEOUSLY DAILY. BEGIN AT 0.6MG DAILY FOR 7 DAYS, THEN INCREASE TO 1.2MG DAILY. Authorizing Provider: JUANA LEAL Ordering User: VICENTE VAUGHAN F TRAINER User, Tin - 05/07/2015 7:14 PM CST VICTOZA 2-MEDHAT 0.6 mg/0.1 mL (18 mg/3 mL) pen [Pharmacy Med Name: VICTOZA 18MG/3ML INJ PEN 2 X 3ML] - MEDICATION STARTED: 03/19/2015 - LAST REFILLED ON: 03/19/2015, QTY: 6, Refills: 0, Sig: inject 1.2 mg subcutaneously daily (every 24 hours). begin at 0.6 mg daily for 7 days, then increase to 1.2 mg daily. (changed) - WARNING: This medication may not have been authorized by the requested provider. - NOTIFICATION: HBA1C is abnormal (10.0% is greater than 8.0%) - REFILL: 3 months (if notifications and warnings resolved; manual update required, due to unreadable sig) - RATIONALE: This refill should last until the patient is due for a(n) HBA1C check. - LAST QUALIFYING VISIT WITH JUANA LEAL N: 02/24/2015 - NEXT SCHEDULED VISIT: None - HBA1C: 10.0% on 02/24/[address] [address], Reference: [id number], 05/06/2015 12:00:08 PM LEONARDO, Tonio: OTTO DUENASILL ([id number]) F TRAINER documented in this encounter Plan of Treatment Upcoming Encounters Date Type Specialty Care Team Description 06/15/2022 Appointment Orthopedics Vanna Ulloa MD [address] [facility] [place] [id number] (Wo rk) documented as of this encounter Visit Diagnoses Not on filedocumented in this encounter Care Teams Mountain Or Glacier Guide Relationship Specialty Start Date End Date Juana Leal, PPA TEACHER, FRYLINE ATTENDANT PCP - General 04/15/14 01/09/17 1415 [place] [id number] documented as of this encounter
--- OUTSIDE RECORDS SUMMARY | 2022-04-22 14:02 | XMS_ITS | Encounter Summary ---
:1965 Author Organization [email or web address] Address [address] [place] [address] Care Team Providers Name Role Phone Antoinette Leal APRN, CNP Primary Care Provider Reason for Visit Reason Comments Diabetes Encounter Details Date Type Department Care Team Description 05/26/2015 Office Visit Antoinette Daugherty, Type 2 d iabetes mellitus, controlled (HR) (Primary Dx); Medicine [facility] Major depressive disorder, recurrent epi sode, moderate (HRC); [address] [facility]; [place] [address] Ave Insomnia, unspecified insomnia; [phone] [place] [address] Morbid obesity with BMI of 40.0-44.9, ad ult (HRC); [phone] Essential hyper tension; (Work) Hyperlipidemia; Breast ca ncer screening Social History Tobacco Use Types Packs/Day Years Used Date Smoking Tobacco: Never Assessed Sex Assigned at Date Recorded Not on file documented as of this encounter Last Filed Vital Signs Vital Sign Reading Time Taken Comments Blood Pressure 112/80 05/26/2015 11:26 AM TOWER DIRECTOR Pulse 93 05/26/2015 11:26 AM TOWER DIRECTOR Temperature - - Respiratory Rate - - Oxygen Saturation - - Inhaled Oxygen Concentration - - Weight 111.6 kg (246 lb) 05/26/2015 11:26 AM TOWER DIRECTOR Height - - Body Mass Index 40.49 01/22/2015 1:16 PM CDT documented in this encounter Patient Instructions Patient InstructionsThiner, Antoinette N, GLASSWARE FINISHER, TELEVISION PRODUCER - 05/26/2015 11:49 AM TOWER DIRECTOR [facility] [phone] [facility] ([facility] [phone] [facility] [phone] R DIRECTOR documented in this encounter Progress Notes Antoinette Leal APRN, CNP - 05/28/2015 1:12 PM CST Subjective: Liz Phelps is a 49 y.o. female who presents for the following concerns: 1. DM II. She started victoza in February. She continues on lantus and metformin. Last A1C was 10 in February and is 6.4 today. She is on the 0.6 mg dose of the victoza as she has significant reflux and nausea if she tries to go to the 1.2 mg dose. No hypoglycemic episodes. No polyuria/polydipsia. She is doing very well. Yearly eye exams as recommended. She is following up with Sap Bw Architect to helpmonitor her response to the victoza. She is on 81 mg aspirin, statin, lisinopril, tolerating all well. 2. Depression/anxiety. The depression is recurrent, present intermittently since she was very young.She was previously on citalopram and sertraline for this. She does not remember if either was more effective. She has a lack of interest in activities, depressed mood, excessive worrying, feeling as though something awful might happen. She has passive thoughts of suicide but no active plan or intent. States she would never actually harm herself, wouldn't want to leave her family. She is definitely interested in an SSRI, unsure about counseling. No hallucinations. No symptoms of bipolar disorder. No chemical dependency concerns. Medical History Review: Patient's medications, allergies, past medical, surgical and problem lists along with social and family histories were updated, reviewed and reconciled as needed in the EMR. Current Outpatient Prescriptions Medication Sig Dispense Refill [...] 3 times daily. 100 strip 6 ??? FLUoxetine (PROZAC) 10 mg capsule Take 1 capsule by mouth daily (every 24 hours). Increase to 20mg after at least one week. 30 capsule 1 ??? fluticasone (FLONASE) 50 mcg/actuation nasal spray Place 1-2 sprays into each nostril daily (every 24 hours). 16 g 3 ??? insulin glargine (LANTUS SOLOSTAR) 100 unit/mL (3 mL) pen Inject 35 Units subcutaneously daily (every 24 hours). 15 mL 2 ??? insulin pen needles (BD ULTRAFINE JUHI) 32 gauge x 5/32 Inject 2 Clive subcutaneously daily (every 24 hours). 200 each 3 ??? lisinopril (PRINIVIL, ZESTRIL) 20 mg tablet Take 1 tablet by mouth daily (every 24 hours). 90 tablet 1 ??? metFORMIN (GLUCOPHAGE-XR) 500 mg XR 24 hour tablet TAKE 3 TABLETS BY MOUTH DAILY( EVERY 24 HOURS) 270 tablet 0 ??? multivitamin (THERAGRAN) tablet Take 1 tablet by mouth daily (every 24 hours). 100 ??? [place]-3 Fatty Acids Cap daily (every 24 hours). ??? Omeprazole Magnesium (PRILOSEC OTC) 20 mg tablet Take 1 tablet by mouth daily (every 24 hours). LW Comment:flex spending account LW Addl Instr:Indicated for: Acid Reflux 90 3 ??? traZODone (DESYREL) 50 mg tablet Take 1-2 tablets by mouth nightly. 30 tablet 1 ??? VICTOZA 2-MEDHAT 0.6 mg/0.1 mL (18 mg/3 mL) pen INJECT 1.2MG SUBCUTANEOUSLY DAILY. BEGIN AT 0.6MG DAILY FOR 7 DAYS, THEN INCREASE TO 1.2MG DAILY. 6 mL 0 Current Facility-Administered Medications Medication Dose Route Frequency Provider Last Rate Last Dose ??? medroxyPROGESTERone (DEPO-PROVERA) injection 150 mg 150 mg Intramuscular [id number] Antoinette Leal,GLASSWARE FINISHER, TELEVISION PRODUCER 150 mg at 05/26/15 1418 Review of Systems Pertinent ROS as listed in HPI. Objective: Filed Vitals: 05/26/15 1126 BP: 112/80 Pulse: 93 Weight: 246 lb (111.585 kg) GEN: Appears well, no acute distress. PSYCH: Alert and oriented. Well-groomed. Good eye contact. Speech is normal. Behavior and affect arecongruent and appropriate. Does not appear depressed or anxious. Insight into symptoms is good. No hallucinations. Passing thoughts of suicide, no active plan or intent. Assessment: Diagnosis and Associated Orders ICD-10-CM ICD-9-CM 1. Type 2 diabetes mellitus, controlled ([facility]) E11.9 250.00 POCT Glycosylated Hemoglobin (HB A1C) Microalbumin Urine Random (UMAR) 2. Major depressive disorder, recurrent episode, moderate ([facility]) F33.1 296.32 FLUoxetine (PROZAC) 10 mg capsule PSYCHOLOGY CONSULT ADULT/PEDS (AMB) 3. Anxiety ([facility]) F41.9 300.00 FLUoxetine (PROZAC) 10 mg capsule PSYCHOLOGY CONSULT ADULT/PEDS (AMB) 4. Insomnia, unspecified insomnia G47.00 780.52 traZODone (DESYREL) 50 mg tablet 5. Morbid obesity with BMI of 40.0-44.9, adult ([facility]) E66.01 278.01 Z68.41 V85.41 6. Hypertension I10 401.9 Creatinine Electrolytes (NA, K, CL, Bicarb) 7. Hyperlipidemia E78.5 272.4 Cholesterol Fraction-LDLD If Trig High 8. Breast cancer screening Z12.39 V76.10 MM Mammogram Screening Bilateral W Cad Plan: 1. Congratulated her on A1C of 6.4. I would really like to keep the A1C less than 7. She will continue on current medications as prescribed and continue to follow-up with Sap Bw Architect. She is on 0.6 mg victoza which is not supposed to be therapeutic but this seems to work well for her so she will stay on this dose for now. Yearly eye exams to screen for retinopathy. Recheck in six months, sooner PRN. 2. For the depression/anxiety, we will start 10 mg fluoxetine daily. This is more weight neutral. Will increase to 20 mg after at least one week and she will recheck with me in 3-4 weeks. Strongly encouraged counseling and she is provided with referral. She is able to provide a verbal contract for safety today and agrees to seek immediate medical attention for any active suicidal ideation. 3. As above. 4. For the insomnia, will treat with trazodone 50-100 mg PRN insomnia. She understands this is for short-term use until SSRI takes effect. She has no sleep apnea symptoms. 5. Continue to work on weight loss through diet and exercise. 6. BP is well-controlled, continue ACEI. 7. Tolerates statin well, continue atorvastatin. 8. Schedule mammogram. Total time: 30 minutes Counselin minutes R DIRECTOR documented in this encounter Plan of Treatment Upcoming Encounters Date Type Specialty Care Team Description 06/15/2022 Appointment Orthopedics Vanna Ulloa MD [address] [place] [address] (Wo rk) documented as of this encounter Visit Diagnoses Diagnosis Type 2 diabetes mellitus, controlled (HR C) - Primary Type II or unspecified type diabetes amy litus without mention of complication, not stated as uncontrolled Major depressive disorder, recurrent epi sode, moderate (HRC) Major depressive disorder, recurrent epi sode, moderate Anxiety (HRC) Anxiety state, unspecified Insomnia, unspecified insomnia Morbid obesity with BMI of 40.0-44.9, ad ult (HRC) Essential hypertension (HRC) Unspecified essential hypertension Hyperlipidemia (HRC) Other and unspecified hyperlipidemia Breast cancer screening Breast screening, unspecified documented in this encounter Care Teams Want Ad Clerk Relationship Specialty Start Date End Date Antoinette Leal APRN, TELEVISION PRODUCER PCP - General 04/15/14 01/09/[address] [facility] [place] [id number] documented as of this encounter
--- OUTSIDE RECORDS SUMMARY | 2022-04-22 14:02 | XMS_ITS | Encounter Summary ---
:1965 Author Organization [facility] Address [address] [place] [address] Care Team Providers Name Role Phone Antoinette Leal APRN, MAGED Primary Care Provider [phone] Reason for Visit Reason Comments Refill Encounter Details Date Type Department Care Team Description 04/17/2015 [facility] Pearl Cardenas MBBS Refill [address] [place] [address] [place] [address] [phone] (Wo rk) Social History Tobacco Use Types Packs/Day Years Used Date Smoking Tobacco: Never Assessed Sex Assigned at Date Recorded Not on file documented as of this encounter Nursing Notes Connie Sunshine RN - 04/18/2015 11:45 AM CST Renewed medication per medication refill protocol. Requested Prescriptions Signed Prescriptions Disp Refills ??? metFORMIN (GLUCOPHAGE-XR) 500 mg XR 24 hour tablet 270 tablet 0 Sig: TAKE 3 TABLETS BY MOUTH DAILY( EVERY 24 HOURS) Authorizing Provider: PEARL CARDENAS Ordering User: CONNIE SUNSHINE S ORDER ADMINISTRATOR User, [email or web address] - 04/18/2015 11:45 AM CST metFORMIN (GLUCOPHAGE-XR) 500 mg XR 24 hour tablet [Pharmacy Med Name: METFORMIN ER 500MG 24HR TABS] - MEDICATION STARTED: 04/25/2009 - LAST REFILLED ON: 12/02/2014, QTY: 360, Refills: 0, Sig: take 3 tablets by mouth daily (every 24 hours). (changed but equivalent) - NOTIFICATION: HBA1C is abnormal (10.0% is greater than 8.0%) - REFILL: 3 months (if notifications resolved) - RATIONALE: This refill should last until the patient is due for a(n) HBA1C check. - LAST QUALIFYING VISIT WITH PEARL CARDENAS H: 12/02/2014 (A more recent visit in family medicine was found) - NEXT SCHEDULED VISIT: None - Cr: 1.0mg/dL on 01/22/2015 - HBA1C: 10.0% on 02/24/2015 ADDITIONAL SCHEDULING ACTIONS TAKEN: - HBA1C for multiple medications including insulin glargine (LANTUS SOLOSTAR) 100 unit/mL (3 mL) pen(Sent to [facility]) Powered by [employer], Reference: [id number], 04/17/2015 7:18:10 AM Tonio PATTERSON: OTTO HERNANDEZ ([id number]) S ORDER ADMINISTRATOR documented in this encounter Plan of Treatment Upcoming Encounters Date Type Specialty Care Team Description 06/15/2022 Appointment Orthopedics Vanna Ulloa MD [address] [facility] [place] [address] (Wo rk) documented as of this encounter Visit Diagnoses Not on filedocumented in this encounter Care Teams Boilermaker Assembly And Erection Relationship Specialty Start Date End Date Antoinette Leal APRN, WEATHERSEAL TECHNICIAN PCP - General 04/15/14 01/09/17 1415 [facility] [place] [address] documented as of this encounter
--- OUTSIDE RECORDS SUMMARY | 2022-04-22 14:02 | XMS_ITS | Encounter Summary ---
:1965 Author Organization [facility] Address [address] [place] [address] Care Team Providers Name Role Phone Antoinette Leal APRN, CNP Primary Care Provider Reason for Visit Reason Comments Patient Calling Back Encounter Details Date Type Department Care Team Description 03/29/2015 Telephone Medicine [facility] Antoinette Leal, Patient Calling Back Medicine [facility] [address] [facility] [address] [place] [address] [place], [place] [id number] (Wo rk) Social History Tobacco Use Types Packs/Day Years Used Date Smoking Tobacco: Never Assessed Sex Assigned at Date Recorded Not on file documented as of this encounter Nursing Notes Kiera Cordova RN - 03/29/2015 10:20 AM CST Pt calling stating she was told to call [facility] this weekend with any concerns or symptoms. Pt states on 03/26/15 she was told to increase her Victoza from 0.6 mg to 1.2 mg. Pt has Type 2 diabetes. Pt stating that since the increase, she has woken up the past two mornings coughing and choking on stomach acid. Pt states this morning it took her 30 minutes to stop coughing on the stomach acid. Pt has taken cough drops and has been drinking milk to help relieve this and blood sugars have been running slightly high due to this. Blood sugar was 229, yesterday 219. Pt asking what she should do as she believes the increase in Victoza is the cause of this vomiting. Pt notified that the division director will be paged regarding. Spoke with division director Dr. Aguilera who advised pt decrease Victoza back to 0.6 mg, to avoid taking milk and cough drops and take TUMS as an antacid instead. Advised that pt follow up with her clinic on Tuesday as well. Call placed back to pt who did not answer. Second attempt was made and VM left to call P[facility] back. Third attempt was able to reach pt and she was notified of Dr. Aguilera's advice and told to call clinic Tuesday morning. Pt understands and will call [facility] back with any new or worsening symptoms this weekend if needed. WORKER Arlene Hilario - 03/29/2015 10:05 AM CST Patient returning call. WORKER Nicholas Amanda - 03/29/2015 8:59 AM CST pt states she is having a reaction from medication. please advise WORKER documented in this encounter Plan of Treatment Upcoming Encounters Date Type Specialty Care Team Description 06/15/2022 Appointment Orthopedics Vanna Ulloa MD [address] [facility] [place] [address] (Wo rk) documented as of this encounter Visit Diagnoses Not on filedocumented in this encounter Care Teams Braiding Machine Operator Relationship Specialty Start Date End Date Antoinette Leal, ASSESSMENT NURSE, SENIOR ADVISORY PCP - General 04/15/14 01/09/17 [address] [place] [id number] documented as of this encounter
--- OUTSIDE RECORDS SUMMARY | 2022-04-22 14:02 | XMS_ITS | Encounter Summary ---
:1965 [facility] Address [address] [place] [address] Care Team Providers Name Role Phone Antoinette Leal APRN, CNP Primary Care Provider [phone] Encounter Details Date Type Department Care Team Description 05/29/2015 Notes/Orders [facility] Antoinette Leal APRN, [address] [facility] [place] [address] 14[address] [facility] [phone] [place], [place] [address] (Wo rk) Social History Tobacco Use Types Packs/Day Years Used Date Smoking Tobacco: Never Assessed Sex Assigned at Date Recorded Not on file documented as of this encounter Plan of Treatment Upcoming Encounters Date Type Specialty Care Team Description 06/15/2022 Appointment Orthopedics Vanna Ulloa MD [address] [place] [address] (Wo rk) documented as of this encounter Visit Diagnoses Not on filedocumented in this encounter Care Teams Ornamental Ironworker Relationship Specialty Start Date End Date Antoinette Leal APRN, MAGED PCP - General 04/15/14 01/09/[address] [facility] [place] [id number] documented as of this encounter
--- OUTSIDE RECORDS SUMMARY | 2022-04-22 14:02 | XMS_ITS | Encounter Summary ---
:1965 Author Organization [facility] Address [address] [place] [address] Care Team Providers Name Role Phone Antoinette Leal APRN, MAGED Primary Care Provider Reason for Visit Reason Comments HC Phone Visit Encounter Details Date Type Department Care Team Description 03/31/2015 Care Coord Phone Tran Greco R N [facility] Phone Visit Medicine [address] [facility] [address] [facility] [place] [address] [place] [address] [phone] Social History Tobacco Use Types Packs/Day Years Used Date Smoking Tobacco: Never Assessed Sex Assigned at Date Recorded Not on file documented as of this encounter Progress Notes Tran Rodriguez RN - 03/31/2015 5:24 PM CST RN Accounting Professional - Diabetes Follow-Up Current diabetes medication regimen: Lantus 25 units daily Victoza 0.6 mg daily Metformin 500 mg TID CURRENT GLUCOSE PATTERNS: since 03/27/15 Before breakfast: 140 - 146 Before dinner: 117 - 136 2 hours postmeal: 146 - 169 Hypoglycemia (previous two weeks): none Assessment/education: Liz is calling to review her BG readings, as directed, after having problemswith side effects from Victoza over the weekend. Liz increased her dose of Victoza from 0.6 mg to 1.2 mg daily on Tuesday. She immediately noticed an increase in her stomach acid and acid reflux. Liz takes OTC Prilosec daily. By Tuesday and Tuesday, Liz was waking with stomach acid in the backof her throat that was causing her to gag. Liz was advised by the Nurseline to decrease her Victoza back to 0.6 mg daily. Liz reports she hasn't had any further problems with stomach acid since decreasing her dose. Liz is very happy with her decreased BG readings and appetite. The only other side effect Liz noticed was an increase in loose stools, but that has also resolved. I advised Liz that Victoza works by slowing her digestion. Typically, decreasing the size of her meals, eating more protein, increasing her water intake, and using Tums prn may help to decrease the increase in her stomach acid. For now, Liz would like to continue with her current dose of Victoza 0.6 mg daily for the next 2 weeks to see if her body adjusts better. Then, she may be willing to try the increased dose of 1.2 mg daily again, after the holiday. Liz states she continues to count her CHO choices and is trying to stay at 3 CHO choices per meal. Teach back method used to verify understanding. Shared plan: Continue current insulin and medication regimen. Per DM SO, decrease Victoza to 0.6 mg daily. SMBG tid, record readings. Count CHO choices and try to stay at 3 choices per meal. Avoid snacking after dinner and during the night. Use non-CHO foods to satisfy hunger, only if needed. Phone follow up in 2 weeks to review BG readings. Call if sx of hypoglycemia or glucose readings < 70 mg/dL. Liz verbalized understanding and agreed with plan of care and follow up. FINDER FORMING DEPARTMENT documented in this encounter Plan of Treatment Upcoming Encounters Date Type Specialty Care Team Description 06/15/2022 Appointment Orthopedics Vanna Ulloa MD [address] [facility] [place] [id number] (Wo rk) documented as of this encounter Visit Diagnoses Diagnosis Complex care coordination - Primary Diabetes type 2, uncontrolled Type II or unspecified type diabetes amy litus without mention of complication, uncontrolled documented in this encounter Care Teams Senior Principal Relationship Specialty Start Date End Date Antoinette Leal, FORKLIFT SUPERVISOR, DAIRY NUTRITION CONSULTANT PCP - General 04/15/14 01/09/17 [address] [place] [id number] documented as of this encounter
--- OUTSIDE RECORDS SUMMARY | 2022-04-22 14:02 | XMS_ITS | Encounter Summary ---
:1965 Author Organization [facility] Address [address] [place] [address] Care Team Providers Name Role Phone Antoinette Leal APRN, WAREHOUSE FOREMAN Primary Care Provider Reason for Visit Reason Comments [facility] Phone Visit Encounter Details Date Type Department Care Team Description 03/12/2015 Care Coord Phone Tran Greco R N [facility] Phone Visit Medicine [address] [facility] 14[address] [facility] [place] [address] [place] [address] [phone] Social History Tobacco Use Types Packs/Day Years Used Date Smoking Tobacco: Never Assessed Sex Assigned at Date Recorded Not on file documented as of this encounter Progress Notes Tran Rodriguez RN - 03/13/2015 9:59 AM CDT RN Stock Holder - Diabetes Phone Follow-Up Current diabetes medication regimen: Lantus 25 units at HS Metformin 500 mg TID CURRENT GLUCOSE PATTERNS: since 02/25/15 Before breakfast: 166 - 225 (12 readings over 200) Before dinner: 161 - 246 (7 readings over 200) 2 hours postmeal: 154 - 253 (5 readings over 200) Hypoglycemia (previous two weeks): none Assessment/education: Liz is calling to review her BG readings, as directed. Liz reports she didnot miss any doses of insulin this week, she takes her insulin before bed. Overall, Liz has noticed a dramatic increase in her BG readings, despite her recent increase in Lantus. She has a total of 24 BG readings above 200. Liz reports she has received dietary education for her DM in the past and knows how to count CHO choices. She tries to stay at 3-4 CHO choices per meal, but admits sometimes she eats more. I reminded Liz that Lantus is background coverage only, it cannot correct excessive CHO intake at her meals. Liz is trying to only snack on no/low CHO foods such as vegetable salads, hard boiled eggs, or cheese sticks, but admits she hasn't always been successful. I discussed how insulin works and the trending increase in her BG readings. I believe the increase in her BG is related to her diet and advised Liz to try to cut back to 3 CHO choices per meal. I offered to meet with Liz for additional dietary instruction, but she declined. If she is not successful with decreasing her CHO intake, I predict Liz will eventually need to add mealtime insulin. The other option would be to try a GLP-1 agonist, such as Victoza or Trulicity. I explained how this medication works and informed her the manufacturers offer a savings card so her prescription would be $25 or less. Liz denies any family hx of thyroid cancer or pancreatitis, but is very concerned about side effects. I gave her the website to read more about Victoza and advised she speak with Antoinette Archer as well. Liz has complained of increased healthcare costs, especially from her medication. The cost of her insulin is over $100, therefore I advised she register for a Lantus Savings Card online, but she hasn't had time yet. Liz agrees and also notes she was instructed by an assurance senior manager insurance to check into NS[employer] for coverage. It may be cheaper to use MNSure instead of the coverage provided through her 's employer. Teach back method used to verify understanding. Shared plan: Per DM SO, increase Lantus to 27 units daily. SMBG tid as directed, record readings. Avoid snacking after dinner and during the night. Use non-CHO foods to satisfy hunger, only if needed. [place] for a Lantus Savings Card online to decrease insulin costs. Investigate MNSure coverage options during open-enrollment. Research Victoza as another medication option to add to her current regimen. Phone follow up next week to review BG readings. Call if sx of hypoglycemia or glucose readings < 70 mg/dL. Liz verbalized understanding and agreed with plan of care and follow up. Antoinette Leal APRN, WAREHOUSE FOREMAN - 03/13/2015 9:59 AM CDT Noted, agree with victoza if blood sugars remain out of range on lantus. Thanks. documented in this encounter Plan of Treatment Upcoming Encounters Date Type Specialty Care Team Description 06/15/2022 Appointment Orthopedics Vanna Ulloa MD [address] [facility] [place] [address] (Wo rk) documented as of this encounter Visit Diagnoses Diagnosis Complex care coordination - Primary Diabetes type 2, uncontrolled Type II or unspecified type diabetes amy litus without mention of complication, uncontrolled Inadequate community resources documented in this encounter Care Teams Analytical Engineer Relationship Specialty Start Date End Date Antoinette Leal, SILVIANO, WAREHOUSE FOREMAN PCP - General 04/15/14 01/09/17 [address] [place] [address] documented as of this encounter
--- OUTSIDE RECORDS SUMMARY | 2022-04-22 14:02 | XMS_ITS | Encounter Summary ---
:1965 Author Organization [facility] Address [address] [place] [address] Care Team Providers Name Role Phone Antoinette Leal APRN, MAGED Primary Care Provider Reason for Visit Reason Comments [facility] Phone Visit Encounter Details Date Type Department Care Team Description 07/10/2015 Care Coord Phone Tran Greco R N [facility] Phone Visit Medicine [facility] [facility] [address] [facility] . [place] [address] [place] [address] [phone] Social History Tobacco Use Types Packs/Day Years Used Date Smoking Tobacco: Never Assessed Sex Assigned at Date Recorded Not on file documented as of this encounter Progress Notes Tran Rodriguez RN - 07/23/2015 5:47 PM CST Development Rep - Phone Call Contact with: Liz Reason for call: Care Coordination Discussion/actions: Liz is calling to report she is about to run out of Victoza (she thought she had an additional pen in the refrigerator, but was mistaken). PA was submitted for Trulicity, but we have not received a response yet. Liz does not want to refill the Victoza unless there are no other o ptions. I called [facility] and was informed the PA for Trulicity was denied because Liz needs to fail 2 formulary injectable GLP-1 agonists, either Byetta or Bydureon, in addition to Victoza. I advised Liz of the PA decision. I explained the difference between Byetta and Bydureon. Liz requests to try Bydureon because she does not feel her schedule will allow Byetta's BID dosing, rather she prefers dosing once a week. Bydureon side effects reviewed. Since Liz will need to begin Bydureon tomorrow, I will request the pharmacist provide instruction on how to properly administer Bydureon. I also advised Liz to go to www.[employer] to register for a savings card to reduce her co-pay cost. Shared plan: New prescription sent for Bydureon once weekly, Liz will begin tomorrow. [place] for a Bydureon Savings Card. Advised to call MARCOS Hughes tomorrow if further questions about Bydureon. Phone follow up next week to review BG readings. Liz verbalized understanding and agreed with plan of care and follow up. CLEANER documented in this encounter Plan of Treatment Upcoming Encounters Date Type Specialty Care Team Description 06/15/2022 Appointment Orthopedics Vanna Ulloa MD [address] [facility] [place] [address] (Wo rk) documented as of this encounter Visit Diagnoses Diagnosis Type 2 diabetes mellitus, controlled (HR C) - Primary Type II or unspecified type diabetes amy litus without mention of complication, not stated as uncontrolled documented in this encounter Care Teams Field Clinical Engineer Relationship Specialty Start Date End Date Antoinette Leal, FELT WASHING MACHINE TENDER, CLERICAL ASSIGNER PCP - General 04/15/14 01/09/17 [address] [place] [address] documented as of this encounter
--- OUTSIDE RECORDS SUMMARY | 2022-04-22 14:02 | XMS_ITS | Encounter Summary ---
:1965 Author Organization [facility] Address [address] [place] [address] Care Team Providers Name Role Phone Antoinette Leal APRN, MAGED Primary Care Provider Reason for Visit Reason Comments [facility] Phone Visit Encounter Details Date Type Department Care Team Description 03/19/2015 Care Coord Phone Tran Greco R N [facility] Phone Visit Medicine [address] [facility] [address] [facility] [place] [address] [place] [address] [phone] Social History Tobacco Use Types Packs/Day Years Used Date Smoking Tobacco: Never Assessed Sex Assigned at Date Recorded Not on file documented as of this encounter Progress Notes Tran Rodriguez RN - 03/26/2015 4:19 PM CST RN Core Measures Abstractor - Diabetes Phone Follow-Up Current diabetes medication regimen: Lantus 27 units at HS Metformin 500 mg TID CURRENT GLUCOSE PATTERNS: since 03/13/15 Before breakfast: 191 - 266 (6 over 200) Before dinner: 175 - 270 (one over 306 - 3 over 200) 2 hours postmeal: 168 - 282 (4 over 200) Hypoglycemia (previous two weeks): none Assessment/education: Liz is calling to review her BG readings, as directed. Liz reports she didnot miss any doses of insulin this week. Overall, Liz has continued to notice an increase in her BG readings, despite another recent increase in her Lantus dose. She has a total of 13 BG readings over 200, which is an improvement from 24 readings above 200 last week. However, Liz has one BG reading over 300 this week as well, after eating a burrito at [employer]. Liz states she tries to stay at 3-4 CHO choices per meal, but admits it can be difficult at times and she ends up eating more. I reminded Liz that Lantus is background coverage only, it cannot correct excessive CHO intake at her meals. Liz is trying to only snack on no/low CHO foods such as vegetable salads, hard boiled eggs, or cheese sticks, but admits she hasn't always been successful. We previously discussed how insulin works and the trending increase in her BG readings. If she is not successful with decreasing her CHO intake, I predict Liz will eventually need to add mealtime insulin. The other option we discussed was to try a GLP-1 agonist, such as Victoza or Trulicity in addition to her insulin. I had explained how this medication works and informed her the manufacturers offer a savings card so her prescription would be $25 or less. Liz researched Victoza and Trulicity anddecided she would like to try Victoza, she has already signed up for the Victoza Savings Card. Tereadenies any family hx of thyroid cancer or pancreatitis. She wants to start Victoza today. I requested that Liz come into the clinic for Victoza education, but she declined. Because of her work schedule and caring for her disabled daughter, it is difficult or her to come into the clinic. Since Liz is already using an insulin pen, I agreed to provide Victoza teaching over the phone. I advised Liz to follow up with any further questions at the pharmacy. Liz agreed. Teach back method used to verify understanding. Shared plan: Continue Lantus to 27 units daily. Add Victoza 0.6 mg daily for 7 days, then increase to 1.2 mg daily. Ask the pharmacist any additional questions about Victoza administration, if needed. SMBG tid as directed, record readings. Avoid snacking after dinner and during the night. Use non-CHO foods to satisfy hunger, only if needed. Investigate MNSure coverage options during open-enrollment. Phone follow up next week to review BG readings. Call if sx of hypoglycemia or glucose readings < 70 mg/dL. Liz verbalized understanding and agreed with plan of care and follow up. TIVE SERVICES INTERN documented in this encounter Plan of Treatment Upcoming Encounters Date Type Specialty Care Team Description 06/15/2022 Appointment Orthopedics Vanna Ulloa MD [address] [facility] [place] [address] (Wo rk) documented as of this encounter Visit Diagnoses Diagnosis Diabetes type 2, uncontrolled - Primary Type II or unspecified type diabetes amy litus without mention of complication, uncontrolled Complex care coordination documented in this encounter Care Teams Car Inspection And Repair Manager Relationship Specialty Start Date End Date Antoinette Leal, RESIDENT ASSISTANT CNA, LANOLIN PLANT OPERATOR PCP - General 04/15/14 01/09/17 [address] [place] [address] documented as of this encounter
--- OUTSIDE RECORDS SUMMARY | 2022-04-22 14:03 | XMS_ITS | Encounter Summary ---
:1965 Author Organization [facility] Address [address] [place] [address] Care Team Providers Name Role Phone Antoinette Leal APRN, MAGED Primary Care Provider [phone] Encounter Details Date Type Department Care Team Description 12/17/2014 Imaging [facility] Pain of right forearm 14[address] [place] [address] Social History Tobacco Use Types Packs/Day Years Used Date Smoking Tobacco: Never Assessed Sex Assigned at Date Recorded Not on file documented as of this encounter Miscellaneous Notes Miscellaneous - 06/24/2016 5:10 AM CSTNotes Recorded by Vangie Sam PA-C on 12/18/2014 at 12:35 PMReviewed xray right forearm report, discussed at visit. T BRUSH MAKER documented in this encounter Plan of Treatment Upcoming Encounters Date Type Specialty Care Team Description 06/15/2022 Appointment Orthopedics Vanna Ulloa MD [address] [place], [place] [address] (Wo rk) documented as of this encounter Procedures Procedure Name Priority Date/Time Associated Diagnosis Comme nts XR FOREARM RT 2 Routine 12/17/2014 4:07 PM Pain of right Resul ts for this VIEWS CDT forearm procedure are i n the results section. documented in this encounter Results XR Forearm Rt (12/17/2014 4:07 PM CDT) Anatomical Region Laterality Modality Upper Extremity, Forearm, Arm Other Specimen (Source) Anatomical Location Collection Method / Collectio n Time Received Time / Laterality Volume Narrative 12/17/2014 4:12 PM CDT COMPARISON: ??None. FINDINGS: ??No definite fracture or othe r abnormality is identified. Procedure Note Tristen Sanchez MD - 11/02/2015Formatti ng of this note might be different from the original. COMPARISON: None. FINDINGS: No definite fracture or other abnormality is identified. Transcriptions Tristen Sanchez MD - 06/24/2016 5:10 AM CSTNotes Recorded by Vangie Sam PA-C on 12/18/2014 at 12:35 PMReviewed xray right forearm report, discussed at visit. Vangie Sam PA-C RAD GD documented in this encounter Visit Diagnoses Diagnosis Pain of right forearm Pain in limb documented in this encounter Care Teams Sfdc Consultant Relationship Specialty Start Date End Date Antoinette Leal, FAMILY THERAPIST, TUCK POINTER HELPER PCP - General 04/15/14 01/09/17 14[address] [facility] [place] [id number] documented as of this encounter
--- OUTSIDE RECORDS SUMMARY | 2022-04-22 14:03 | XMS_ITS | Encounter Summary ---
:1965 Author Organization [email or web address] Address [address] [place] [address] Care Team Providers Name Role Phone Antoinette Leal APRN, MAGED Primary Care Provider [phone] Reason for Visit Reason Comments Medication Questions Encounter Details Date Type Department Care Team Description 12/02/2014 Telephone [facility] Antoinette Leal, Medicati on Questions Medicine SILVIANO, CENTRAL OFFICE EQUIPMENT ENGINEER [address] [place] [address] [place], [place] [id number] (Wo rk) Social History Tobacco Use Types Packs/Day Years Used Date Smoking Tobacco: Never Assessed Sex Assigned at Date Recorded Not on file documented as of this encounter Nursing Notes William Conteh MBBS - 12/03/2014 2:09 PM CDT Prescriptions switched to brands covered by insurance Margret Fox - 12/02/2014 4:50 PM CDT A fax from [employer] states that One touch is not covered by insurance company. Alternative would beBayer Contour or Accu Chek. Accu - chek has been pended or a PA could be started. documented in this encounter Plan of Treatment Upcoming Encounters Date Type Specialty Care Team Description 06/15/2022 Appointment Orthopedics Vanna Ulloa MD [address] [facility] [place] [address] (Wo rk) documented as of this encounter Visit Diagnoses Not on filedocumented in this encounter Care Teams Horse Shoer Relationship Specialty Start Date End Date Antoinette Leal APRN, CENTRAL OFFICE EQUIPMENT ENGINEER PCP - General 04/15/14 01/09/17 [address] [facility] [place] [address] documented as of this encounter
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
--- OUTSIDE RECORDS SUMMARY | 2022-04-22 14:03 | XMS_ITS | Encounter Summary ---
:1965 Author Organization [employer] Address [address] [place] [address] Care Team Providers Name Role Phone Antoinette Leal APRN, MAGED Primary Care Provider Encounter Details Date Type Department Care Team Description 01/22/2015 Lab Visit [facility] Diabetes type 2, uncontrolle d; [address] Other and unspecified hyperl ipidemia; [place] [address] Unspecified essential hypert ension [phone] Social History Tobacco Use Types Packs/Day Years Used Date Smoking Tobacco: Never Assessed Sex Assigned at Date Recorded Not on file documented as of this encounter Plan of Treatment Upcoming Encounters Date Type Specialty Care Team Description 06/15/2022 Appointment Orthopedics Vanna Ulloa MD [address] [place], [place] [id number] (Wo rk) documented as of this encounter Procedures Procedure Name Priority Date/Time Associated Diagnosis Comme nts ALBUMIN/CREAT RATIO Routine 01/22/2015 2:03 Diabetes type 2, R esults for this PM CDT uncontrolled (HRC) procedure are in the results section. HEMOGLOBIN A1C, STAT 01/22/2015 1:14 Diabetes type 2, Resul ts for this RAPID PM CDT uncontrolled (HRC) procedure are in the results section. LIPID PANEL AND Routine 01/22/2015 1:14 Diabetes type 2, Resul ts for this DIRECT LDL(IF PM CDT uncontrolled (HRC) procedur e are in NEEDED) the results section. CREATININE / GFR Routine 01/22/2015 1:14 Other and unspecified Results for this PM CDT hyperlipidemia (HRC) procedu re are in the results section. ELECTROLYTE PANEL Routine 01/22/2015 1:14 Unspecified essentia l Results for this PM CDT hypertension (HRC) procedure are in the results section. EXTRA SERUM STAT 01/22/2015 1:05 Results for this SEPARATOR TUBE PM CDT procedure are in (YELLOW) the results section. documented in this encounter Results Microalb/Creat Ratio (01/22/2015 2:03 PM CDT) Analysis Performed At Patho logist Time Signature Microalbumin <6.0 mg/L HP CONVERSION Urine U Creat Random 84 mg/dL HP CONVERSION Microalbumin/Crea <10.0 0.0 - 30.0 HP CONVERSI ON tinine Ratio Specimen Anatomical Collection Method Collection Time Receive d Time (Source) Location / / Volume Laterality 01/22/2015 2:03 PM 5 7:13 CDT PM CDT Narrative HP CONVERSION - 01/22/2015 9:11 PM CDT Performed at [facility], [address] [place] [address] Antoinette Leal APRN, MAGED LAB_1 Performing Organization Address City/[facility] Phon e Number HP CONVERSION (ABNORMAL) Electrolyte Panel (01/22/2015 1:14 PM CDT) P athologist Signature Sodium 136 (L) 137 - 147 HP CONVERSION mEq/L Potassium 4.7 3.5 - 5.2 HP CONVERSION mEq/L Chloride 102 98 - 110 HP CONVERSION mEq/L Bicarbonate 25 23 - 33 HP CONVERSION mmol/L Specimen Anatomical Collection Method Collection Time Receive d Time (Source) Location / / Volume Laterality 01/22/2015 1:14 PM 5 5:47 CDT PM CDT Narrative HP CONVERSION - 01/22/2015 6:20 PM CDT Performed at [facility], [address] [place] [address] Antoinette Leal APRN, MAGED LAB_1 Performing Organization Address City/[facility] Code Phon e Number HP CONVERSION (ABNORMAL) Creatinine / GFR (01/22/2015 1:14 PM CDT) athologist Signature Creatinine 1.0 0.4 - 1.3 HP CONVERSION Serum mg/dL Est GFR >60 >60 HP CONVERSION Am mL/min/1.7 3m2 Est GFR Non-Afr 59 (L) >60 HP CONVERSION Am mL/min/1.7 3m2 Comment: Normal>60, moderate decrease 30 - 59, se bonny decrease 15 - 29, renal failure <15 mL/min/1.73 m2 NOTE: ??Choose the eGFR result above bruno ropriate for the race of the patient. Specimen Anatomical Collection Method Collection Time Receive d Time (Source) Location / / Volume Laterality 01/22/2015 1:14 PM 5 5:47 CDT PM CDT Narrative HP CONVERSION - 01/22/2015 6:20 PM CDT Performed at [facility], [address] [place] [address] Antoinette Leal APRN, CNP LAB_1 Performing Organization Address [facility] Phon e Number HP CONVERSION (ABNORMAL) Lipid Panel and Direct LDL(If Needed) (01/22/2015 1:14 PM CDT) [facility] Method Time Signature Cholesterol 166 0 - 200 HP CONVERSION mg/dL Triglycerides 359 (H) 0 - 149 HP CONVERSION mg/dL HDL Cholesterol 34 (L) >39 mg/dL HP CONVERSION Cholesterol/HDL 4.9 HP CONVERSION Ratio Screen LDL Calculated 60 19 - 130 HP CONVERSION mg/dL Length Of Fast ? HP CONVERSION Specimen Anatomical Collection Method Collection Time Receive d Time (Source) Location / / Volume Laterality 01/22/2015 1:14 PM 5 5:47 CDT PM CDT Narrative HP CONVERSION - 01/22/2015 6:20 PM CDT Performed at [facility], [address] [place] [address] Antoinette Leal APRN, CNP LAB_1 Performing Organization Address [facility] Phon e Number HP CONVERSION (ABNORMAL) HEMOGLOBIN A1C, RAPID (01/22/2015 1:14 PM CDT) [facility] Method Time Signature Hemoglobin A1C 10.9 (H) 4.0 - 5.6 HP CONVERSION Rapid % Comment: The Rapid A1c test is designed for monit oring patients with an established diagnosis of diabetes amy litus. ??The rapid method is not suitable to establish the intial diagnosis of diabetes melitus. Specimen Anatomical Collection Method Collection Time Receive d Time (Source) Location / / Volume Laterality 01/22/2015 1:14 PM 5 1:13 CDT PM CDT Narrative HP CONVERSION - 01/22/2015 1:25 PM CDT Performed at [facility], [address] [place], [place] [address] Antoinette Leal APRN, MAGED LAB_1 Performing Organization Address [facility] Phon e Number HP CONVERSION EXTRA SERUM SEPARATOR TUBE (YELLOW) (01/22/2015 1:05 PM CDT) athologist Signature Extra SST Top Drawn HP CONVERSION Drawn Specimen (Source) Anatomical Collection Method Collection Time Re ceived Time Location / / Volume Laterality 01/22/2015 1:05 PM CDT Narrative HP CONVERSION - 01/22/2015 1:05 PM CDT Performed at [facility], [address] [place] [address] Antoinette Leal APRN, MAGED LAB_1 Performing Organization Address [facility] Phon e Number HP CONVERSION documented in this encounter Visit Diagnoses Diagnosis Diabetes type 2, uncontrolled Type II or unspecified type diabetes amy litus without mention of complication, uncontrolled Other and unspecified hyperlipidemia (HR C) Other and unspecified hyperlipidemia Unspecified essential hypertension (HRC) Unspecified essential hypertension documented in this encounter Care Teams Campus Safety Officer Relationship Specialty Start Date End Date Antoinette Leal APRN, CNP PCP - General 04/15/14 01/09/[address] [place] [address] documented as of this encounter
--- OUTSIDE RECORDS SUMMARY | 2022-04-22 14:03 | XMS_ITS | Encounter Summary ---
:1965 Author Organization [email or web address] [facility] [email or web address] Address [address] [place] [address] Care Team Providers Name Role Phone Antoinette Leal APRN, CNP Primary Care Provider [phone] Reason for Visit Reason Comments Annual Exam ERRONEOUS ENTRY Encounter Details Date Type Department Care Team Description 02/24/2015 Office Visit Antoinette Daugherty, [facility] Saul ENTRY Medicine MAGED SHORE (Primary Dx) [address] [facility] [address] [place] [address] [address] [phone] [place], [place] [address] Social History Tobacco Use Types Packs/Day Years Used Date Smoking Tobacco: Never Assessed Sex Assigned at Date Recorded Not on file documented as of this encounter Last Filed Vital Signs Vital Sign Reading Time Taken Comments Blood Pressure 140/90 02/24/2015 11:17 AM CDT Pulse - - Temperature - - Respiratory Rate - - Oxygen Saturation - - Inhaled Oxygen Concentration - - Weight 112.9 kg (249 lb) 02/24/2015 11:17 AM CDT Height - - Body Mass Index 40.99 01/22/2015 1:16 PM CDT documented in this encounter Progress Notes Antoinette Leal APRN, CNP - 02/26/2015 9:07 AM CDT This encounter was created in error - please disregard. documented in this encounter Plan of Treatment Upcoming Encounters Date Type Specialty Care Team Description 06/15/2022 Appointment Orthopedics Vanna Ulloa MD [address] [facility] [place] [address] (Wo rk) documented as of this encounter Visit Diagnoses Diagnosis ERRONEOUS ENTRY - Primary documented in this encounter Care Teams Paper Maker Relationship Specialty Start Date End Date Antoinette Leal APRN, MAGED PCP - General 04/15/14 01/09/17 [address] [facility] [place] [address] documented as of this encounter
--- OUTSIDE RECORDS SUMMARY | 2022-04-22 14:03 | XMS_ITS | Encounter Summary ---
:1965 Author Organization [facility] Address [address] [place] [address] Care Team Providers Name Role Phone Antoinette Leal APRN, BLENDER SNUFF Primary Care Provider Reason for Visit Reason Comments [facility] Phone Visit Encounter Details Date Type Department Care Team Description 02/13/2015 Care Coord Phone Tran Greco R N [facility] Phone Visit Medicine [address] [facility] [address] [facility] [place] [address] [place] [address] [phone] Social History Tobacco Use Types Packs/Day Years Used Date Smoking Tobacco: Never Assessed Sex Assigned at Date Recorded Not on file documented as of this encounter Progress Notes Tran Rodriguez RN - 02/14/2015 3:03 PM CDT RN Founder And Chief Executive Officer - Diabetes Phone Follow-Up Current diabetes medication regimen: Lantus 20 units daily Metformin 500 mg TID CURRENT GLUCOSE PATTERNS: since 02/06/15 Before breakfast: 146 - 197 Before dinner: 138 - 187 (one reading of 208 after eating popcorn) 2 hours postmeal: 135 - 212 (one reading of 244 after eating dessert 1 hr before) Hypoglycemia (previous two weeks): none Assessment/education: Liz is calling to review her BG readings, as directed. She started off noting her irregular schedule, staying up late at night until 12:00-1:00 AM and sleeping late until noon. Liz reports she did not miss any doses of insulin this week, she takes her insulin before bed. Overall, Liz has 3 readings above 200. She can account for the cause of each of her elevated BG readings with high CHO desserts. Since our last conversation, Liz is trying to only snack on no/low CHO foods after 10:00 PM such as vegetable salads, hard boiled eggs, or cheese sticks. Liz reports she is planning to start walking around a school district building for extra exercise. This program is offered by the school district during the winter months. I explained to Liz that increased activity/exercise will lower her BG. We reviewed monitoring her BG before and after walking and carrying hard candy to use in the event of hypoglycemia. Instructed on how to use Routine 15. Advised if Liz's BG does drop significantly, she may need to eat a 15 gram CHO snack before exercise. Teach back method used to verify understanding. Shared plan: Per DM SO, increase Lantus to 22 units. SMBG tid as directed, record readings. Phone follow up next week to review BG readings. Call if sx of hypoglycemia or glucose readings < 70 mg/dL. Liz verbalized understanding and agreed with plan of care and follow up. documented in this encounter Plan of Treatment Upcoming Encounters Date Type Specialty Care Team Description 06/15/2022 Appointment Orthopedics Vanna Ulloa MD [address] [facility] [place] [facility] [place] [address] (Wo rk) documented as of this encounter Visit Diagnoses Diagnosis Complex care coordination - Primary Diabetes type 2, uncontrolled Type II or unspecified type diabetes amy litus without mention of complication, uncontrolled documented in this encounter Care Teams Motorcycle Riding Instructor Relationship Specialty Start Date End Date Antoinette Leal, CHANGE MANAGEMENT ANALYST, BLENDER SNUFF PCP - General 04/15/14 01/09/17 [address] [place] [address] documented as of this encounter
--- OUTSIDE RECORDS SUMMARY | 2022-04-22 14:03 | XMS_ITS | Encounter Summary ---
:1965 Author Organization [employer] Address [address] [place] [address] Care Team Providers Name Role Phone Antoinette Leal APRN, GRIPPER MACHINE OPERATOR Primary Care Provider Reason for Visit Reason Comments [facility] Phone Visit Encounter Details Date Type Department Care Team Description 01/23/2015 Care Coord Phone Tran Greco R N [facility] Phone Visit Medicine [address] [facility] [address] [facility] [place] [address] [place] [address] [phone] Social History Tobacco Use Types Packs/Day Years Used Date Smoking Tobacco: Never Assessed Sex Assigned at Date Recorded Not on file documented as of this encounter Progress Notes Tran Rodriguez RN - 02/04/2015 4:32 PM CDT RN Assistant Men'S Lacrosse Coach - Diabetes Phone Follow-Up Current diabetes medication regimen: Lantus 20 units daily Metformin ER 1,500 mg daily CURRENT GLUCOSE PATTERNS: since 01/30/15 Before breakfast: 160, 184, 205, 194, 189 Before lunch: 202 Hypoglycemia (previous two weeks): none Assessment/education: Liz is returning my call. She reports re-starting insulin on 01/23/15. Liz is only SMBG once daily, primarily fasting. Since this does not give me a clear picture of what her BG is doing throughout the day, I cannot safely adjust her insulin. Liz notes there were a couple of days she forgot to take her insulin, but does not know which daysthat happened. She also notes snacking during the night because of hunger. I explained that the higher fasting readings could occur for a couple of reasons; release of glucose from her liver/Jacklyn Phenomenon or low BG causing hunger and then eating high CHO snacks. Liz reports she has only experienced sx of hypoglycemia once when she previously took insulin and her BG was was 99. She recalls feeling light-headed. I reviewed how to use Routine 15 to correct hypoglycemia and advised she carry hard candy at all times. I requested Liz increase her SMBG to BID, fasting and 2 hrs after her largest meal. Also, if Tereawakes during the night from hunger, she should check her BG. If her BG is above 100, she should eat a non-CHO snack to satisfy hunger. Teach back method used to verify understanding. Shared plan: Continue current insulin regimen. SMBG bid as directed, record readings. Check nighttime BG if waking from hunger, eat a non-CHO snack if over 100. Phone follow up on 02/10/15 to review BG readings and adjust insulin, as necessary. Call if sx of hypoglycemia or glucose readings < 70 mg/dL. Liz verbalized understanding and agreed with plan of care and follow up. Tran Rodriguez RN - 02/04/2015 4:32 PM CDT I received a referral for care coordination services from Antoinette Leal NP to assist with DM management and insulin titration. Left message requesting a return call. Please transfer to [phone]. Tran, do you think you could check in with Liz in the next 1-2 weeks? We restarted lantus insulin yesterday. She has used this in the past and had no questions about administration. I have asked her to check her blood sugars 3-4x daily for the next few weeks and recheck with me in one month. Thanks. documented in this encounter Plan of Treatment Upcoming Encounters Date Type Specialty Care Team Description 06/15/2022 Appointment Orthopedics Vanna Ulloa MD [address] [facility] [place] [address] (Wo rk) documented as of this encounter Visit Diagnoses Diagnosis Complex care coordination - Primary Diabetes type 2, uncontrolled Type II or unspecified type diabetes amy litus without mention of complication, uncontrolled documented in this encounter Care Teams Roentgenology Teacher Relationship Specialty Start Date End Date Antoinette Leal, NET WPF DEVELOPER, GRIPPER MACHINE OPERATOR PCP - General 04/15/14 01/09/17 [address] [place] [address] documented as of this encounter
--- OUTSIDE RECORDS SUMMARY | 2022-04-22 14:03 | XMS_ITS | Encounter Summary ---
:1965 Author Organization [facility] Address [address] [place] [address] Care Team Providers Name Role Phone Antoinette Lael APRN, CNP Primary Care Provider Reason for Referral Specialty Diagnoses / Procedures Referred By Contact Refer red To Contact Antoinette Leal APR N, CNP [address] [place] [address] Referral ID Status Reason Start Date Expiration Date Visits Requ ested Visits Authorized Reason for Visit Reason Comments Diabetes Eye Exam Encounter Details Date Type Department Care Team Description 03/04/2015 Office Visit Herrera Vazquez on of eyes and vision (Primary Dx); Ophthalmology M, OD Diabetes type 2, uncontrolled; [address] [facility] [address] [facility] DM type 2 without retinopath y; [place] [address] Blvd Bilateral presbyopia [phone] [place] [address] (Wo rk) Social History Tobacco Use Types Packs/Day Years Used Date Smoking Tobacco: Never Assessed Sex Assigned at Date Recorded Not on file documented as of this encounter Progress Notes Herrera Hinson M, OD - 03/04/2015 2:56 PM CDT Patient is alert and feels well. Diabetic eye exam. No signs of diabetic retinopathy. Diagnosis and Associated Orders ICD-10-CM ICD-9-CM 1. Examination of eyes and vision Z01.00 V72.0 NC REFRACTION 2. Diabetes type 2, uncontrolled (HCC) E11.65 250.02 3. DM type 2 without retinopathy (HRC) E11.9 250.00 4. Bilateral presbyopia H52.4 367.4 Plan: Discussed findings with patient. otc readers are still fine. Recheck 1 year or sooner as needed. documented in this encounter Plan of Treatment Upcoming Encounters Date Type Specialty Care Team Description 06/15/2022 Appointment Orthopedics Vanna Ulloa MD [address] [facility] [place] [address] (Wo rk) Scheduled Referrals Name Type Priority Associated Diagnoses Order S chedule Optometry Referral Routine Diabetes type 2, Ordered: , Consult-Adult/Peds uncontrolled (HRC) Exp ires: 03/04/2015 documented as of this encounter Visit Diagnoses Diagnosis Examination of eyes and vision - Primary Diabetes type 2, uncontrolled Type II or unspecified type diabetes amy litus without mention of complication, uncontrolled DM type 2 without retinopathy (HRC) Type II or unspecified type diabetes amy litus without mention of complication, not stated as uncontrolled Bilateral presbyopia Presbyopia documented in this encounter Care Teams Reeling Machine Setup Operator Relationship Specialty Start Date End Date Antoinette Leal, FORM DRAFTER, PRODUCT DEVELOPMENT SCIENTIST PCP - General 04/15/14 01/09/17 [facility] [place] [address] documented as of this encounter
--- OUTSIDE RECORDS SUMMARY | 2022-04-22 14:03 | XMS_ITS | Encounter Summary ---
:1965 Author Organization [employer] Address [address] [place] [address] Care Team Providers Name Role Phone Antoinette Leal APRN, TRIMMING DEPARTMENT BLOCKER Primary Care Provider Encounter Details Date Type Department Care Team Description 02/24/2015 Lab Visit [place] [facility] Diabetes type 2, [address] [facility] [place] [address] Social History Tobacco Use Types Packs/Day Years Used Date Smoking Tobacco: Never Assessed Sex Assigned at Date Recorded Not on file documented as of this encounter Plan of Treatment Upcoming Encounters Date Type Specialty Care Team Description 06/15/2022 Appointment Orthopedics Vanna Ulloa MD [address] [place], [place] [address] (Wo rk) documented as of this encounter Procedures Procedure Name Priority Date/Time Associated Diagnosis Comme nts EXTRA SERUM STAT 02/24/2015 11:25 Results for this SEPARATOR TUBE AM CDT procedure are in (YELLOW) the results section. HEMOGLOBIN A1C, STAT 02/24/2015 11:25 Diabetes type 2, Resu lts for this RAPID AM CDT uncontrolled (HRC) procedure are in the results section. documented in this encounter Results EXTRA SERUM SEPARATOR TUBE (YELLOW) (02/24/2015 11:25 AM CDT) P athologist Signature Extra SST Top Drawn HP CONVERSION Drawn Specimen Anatomical Collection Method Collection Time Receive d Time (Source) Location / / Volume Laterality 02/24/2015 11:25 02/24/2015 AM CDT 11:25 AM CDT Narrative HP CONVERSION - 02/24/2015 11:14 AM CDT Performed at [facility], [address] [place] [address] CLIA number [id number] Antoinette Leal APRN, CNP LAB_1 Performing Organization Address [facility] Phon e Number HP CONVERSION (ABNORMAL) HEMOGLOBIN A1C, RAPID (02/24/2015 11:25 AM CDT) [facility] gist Method Time Signature Hemoglobin A1C 10.0 (H) 4.0 - 5.6 HP CONVERSION Rapid % Comment: The Rapid A1c test is designed for monit oring patients with an established diagnosis of diabetes amy litus. ??The rapid method is not suitable to establish the intial diagnosis of diabetes melitus. Specimen Anatomical Collection Method Collection Time Receive d Time (Source) Location / / Volume Laterality 02/24/2015 11:25 02/24/2015 AM CDT 11:25 AM CDT Narrative HP CONVERSION - 02/24/2015 11:43 AM CDT Performed at [facility], [address] [place] [address] CLIA number [id number] Antoinette Leal APRN, CNP LAB_1 Performing Organization Address [facility] Phon e Number HP CONVERSION documented in this encounter Visit Diagnoses Diagnosis Diabetes type 2, uncontrolled Type II or unspecified type diabetes amy litus without mention of complication, uncontrolled documented in this encounter Care Teams Compliance Counsel Relationship Specialty Start Date End Date Antoinette Leal APRN, CNP PCP - General 04/15/14 01/09/[address] [place] [address] documented as of this encounter
--- OUTSIDE RECORDS SUMMARY | 2022-04-22 14:03 | XMS_ITS | Encounter Summary ---
:1965 Author Organization [facility] Address [address] [place] [address] Care Team Providers Name Role Phone Antoinette Leal APRN, CNP Primary Care Provider Reason for Visit Reason Comments Diabetes Encounter Details Date Type Department Care Team Description 01/22/2015 Office Visit Antoinette Daugherty, Diabetes type 2, uncontrolled (Primary Dx); Medicine [facility] Other and unspecified hyperlipidemia; [address] Unspecified essential hypert ension; [place] [address] Ave Morbid obesity with BMI of 40.0-44.9, ad ult; [phone] [place] [address] Vaginal yeast infection Social History Tobacco Use Types Packs/Day Years Used Date Smoking Tobacco: Never Assessed Sex Assigned at Date Recorded Not on file documented as of this encounter Last Filed Vital Signs Vital Sign Reading Time Taken Comments Blood Pressure 120/70 01/22/2015 1:16 PM CDT Pulse 88 01/22/2015 1:16 PM CDT Temperature - - Respiratory Rate - - Oxygen Saturation - - Inhaled Oxygen Concentration - - Weight 112 kg (247 lb) 01/22/2015 1:16 PM CDT Height 166 cm (5' 5.35) 01/22/2015 1:16 PM CDT Body Mass Index 40.66 01/22/2015 1:16 PM CDT documented in this encounter Patient Instructions Patient InstructionsSofy Gabriel LPN - 01/22/2015 1:19 PM CDT Patient Followup Plan: Patient Declined BMI action plan. documented in this encounter Progress Notes Antoinette Leal APRN, MAGED - 01/23/2015 9:05 AM CDT SUBJECTIVE: Liz Phelps is a 49 y.o. female here today for diabetes check. She was here about amonth ago for this and A1C was 10.9 at the time. Glipizide was increased to 10 mg daily. States she gets frequent vaginal yeast infections. Symptoms include itching and a white discharge. States these resolve with OTC treatment but seem to recur frequently. Aspirin:Continues to take aspirin daily. No stomach pains, no black or tarry stools. Blood pressure:No headaches., No blurry vision., No double vision., No chest pain. and No dyspnea. Controlled on lisinopril 20 mg daily. Blood sugars: Patient has been checking blood sugars. Blood sugars have not been at goal. No symptomatic highs or lows. Patient Patient did not bring in outside records. Reports fasting blood sugars around 250. She does not generally check post-prandial blood sugars. Cholesterol: On lipitor 20 mg daily. No muscle aches or pains. Tobacco: Patient reports that she has quit smoking. She has never used smokeless tobacco. Eye exam: Patient is not up-to-date with eye exam. Patient does not have a history of retinopathy. No blurry or double vision Foot exam: Patient does not have a history of neuropathy. No sores, numbness, or tingling. Kidney health: does not have a history of nephropathy. No burning or pain with urination, no polyuria or polydipsia. Review of systems: See Above Medications: Reviewed and updated Current Outpatient Prescriptions Medication Sig Dispense Refill ??? ACCU-CHEK FARTUN PLUS GLUCOSE METER Use as instructed as needed for High Blood Sugar. 1 kit 0 ??? ACCU-CHEK FARTUN PLUS TEST STRIPS Use 1 strip as instructed 3 times daily (before meals). 100 strip PRN ??? ACCU-CHEK SOFTCLIX LANCETS Use as instructed 3 times daily. 100 each PRN ??? albuterol HFA (VENTOLIN HFA) 90 mcg/actuation inhaler Inhale 2 puffs every 6 hours as needed forWheezing. 1 Inhaler 1 ??? aspirin EC 81 mg EC tablet [...] mouth daily (every 24 hours). 100 ??? [place]-3 Fatty Acids Cap daily (every 24 hours). ??? Omeprazole Magnesium (PRILOSEC OTC) 20 mg tablet Take 1 tablet by mouth daily (every 24 hours). LW Comment:flex spending account LW Addl Instr:Indicated for: Acid Reflux 90 3 No current facility-administered medications for this visit. Adverse Drug Reactions: No Known Allergies OBJECTIVE: Vital Signs: BP 120/70 mmHg Pulse 88 Ht 5' 5.35 (1.66 m) Wt 247 lb (112.038 kg) BMI 40.66 kg/m2 General: Alert, Oriented, NAD Head: Normocephalic. Eyes: PERRLA, full EOM. External exams normal. Nose: Patent, without deformity.Throat: Moist mucous membranes without lesions, erythema, or exudate. Heart: RR without murmurs, rubs, or gallops. Respiratory: Normal respiratory effort. Lungs are clear with good breath sounds. Abdomen: The abdomen was flat, soft and nontender without guarding rebound or masses. Positive bowelsounds. Feet: Normal exam: no sores, no swelling, no edema and Monofilament exam of the feet is within normal limits Labs: Lab Results Component Value Date/Time HGB A1C 11.0* 04/17/2014 1243 HEMOGLOBIN A1C RAPID 10.9* 01/22/2015 1314 ASSESSMENT: Diagnosis (ICD9) and Associated Orders ICD-9-CM ICD-10-CM 1. Diabetes type 2, uncontrolled ([facility]) 250.02 E11.65 Hemoglobin A1C, Rapid Cholesterol Fraction-LDLD If Trig High Microalbumin Urine Random (UMAR) OPTOMETRY CONSULT ADULT/PEDS (AMB) insulin glargine (LANTUS SOLOSTAR) 100 unit/mL (3 mL) pen insulin pen needles (BD ULTRAFINE JUHI) 32 x 5/32 2. Hyperlipidemia 272.4 E78.5 Creatinine 3. Hypertension 401.9 I10 Electrolytes (NA, K, CL, Bicarb) 4. Morbid obesity with BMI of 40.0-44.9, adult (C) 278.01 E66.01 V85.41 Z68.41 5. Vaginal yeast infection 112.1 B37.3 fluconazole (DIFLUCAN) 150 mg tablet PLAN: 1. Stop glipizide, add lantus insulin at 20 units daily per guidelines (0.2 units per kg or 20 unitsnightly). Continue metformin XR at 1500 mg daily. She does not tolerate doses above that due to GI side effects. She has used lantus insulin in the past and remembers how to administer this correctly. I have asked her to check her blood sugars 3-4x daily for the next few weeks and then return to clinic in four weeks to have the A1C rechecked. I am also going to have our Dinkey Operator Slag call her in the next 1-2 weeks to see how this is going. We discussed the possibility of hypoglycemia, including signs/symptoms and she will carry hard candy with her as well. She will let me know if she has symptomatic lows or any blood sugars below 75. Reviewed carb counting and low carb diet. Increase exercise. Other labs are pending as above and I will send her all results. 2. Recommended yearly eye exam. 3. Will treat her recurrent vaginal yeast infections with diflucan 150 mg weekly for six weeks. The patient was discharged ambulatory and in stable condition. Diabetes measures: A1c Due: 1 month Foot Exam: one year Eye exam: due Cholesterol: one year Electrolytes: one year UMAR: one year Aspirin: yes Tobacco: no documented in this encounter Plan of Treatment Upcoming Encounters Date Type Specialty Care Team Description 06/15/2022 Appointment Orthopedics Vanna Ulloa MD [address] [facility] [place] [id number] (Wo rk) documented as of this encounter Visit Diagnoses Diagnosis Diabetes type 2, uncontrolled - Primary Type II or unspecified type diabetes amy litus without mention of complication, uncontrolled Other and unspecified hyperlipidemia (HR C) Other and unspecified hyperlipidemia Unspecified essential hypertension (HRC) Unspecified essential hypertension Morbid obesity with BMI of 40.0-44.9, ad ult (HRC) Vaginal yeast infection Candidiasis of vulva and vagina documented in this encounter Care Teams Window Dresser Relationship Specialty Start Date End Date Antoinette Leal APRN, GRAIN UNLOADER MACHINE PCP - General 04/15/14 01/09/17 [address] [facility] [place] [address] documented as of this encounter
--- OUTSIDE RECORDS SUMMARY | 2022-04-22 14:03 | XMS_ITS | Encounter Summary ---
:1965 Author Organization [facility] Address [address] [place] [address] Care Team Providers Name Role Phone Antoinette Leal APRN, CLIENT RETENTION SPECIALIST Primary Care Provider Reason for Visit Reason Comments HC Phone Visit Encounter Details Date Type Department Care Team Description 02/24/2015 Care Coord Phone Tran Greco R N [facility] Phone [facility] [facility] [place] [id number] [place] [id number] [phone] Social History Tobacco Use Types Packs/Day Years Used Date Smoking Tobacco: Never Assessed Sex Assigned at Date Recorded Not on file documented as of this encounter Progress Notes Tran Rodriguez RN - 02/27/2015 9:07 PM CDT RN Lumber Handler - Diabetes Phone Follow-Up Current diabetes medication regimen: Lantus 24 units at HS Metformin 500 mg TID CURRENT GLUCOSE PATTERNS: since 02/14/15 Before breakfast: 135 - 219 Before dinner: 135 - 191 (one reading of 266 after exercise) 2 hours postmeal: 154 - 188 (one reading of 250 after exercise) Hypoglycemia (previous two weeks): none Assessment/education: Liz is calling to review her BG readings, as directed. Liz reports she didnot miss any doses of insulin this week, she takes her insulin before bed. Overall, Liz has 8 readings above 200; 2 were fasting and 6 were following exercise. Since our last conversation, Liz is trying to only snack on no/low CHO foods after 10:00 PM such as vegetable salads, hard boiled eggs, or cheese sticks, but admits she hasn't always been successful. Liz started walking around a school district building for extra exercise. I explained to Liz that increased activity/exercise will lower her BG, but according to Liz, her BG is actually rising.I requested Liz monitor her BG before and after walking to see if she is actually going low. Yaniqueould carry hard candy to use in the event of hypoglycemia. I instructed Liz on how to use Routine 15. Advised if her BG does drop significantly, she may need to eat a 15 gram CHO snack before exercise. Liz is wondering if increased stress will affect her BG. I advised Liz that stress, both emotional and physical, will increase her BG. Liz notes trouble sleeping is causing stress, stating that she often cannot turn off her brain at night to sleep. She has tried OTC Unisom and melatonin without achieving results. I recommended Liz discuss her insomnia with Antoinette Leal. Since Liz was justseen for her annual physical exam, she would like to contact Antoinette through [employer]. Liz also complains of increased healthcare costs, especially her medication. The cost of her insulin is over $100, therefore I advised she register for a Lantus Savings Card online. Liz agrees and also notes she was instructed by an health insurance agent to check into [employer] for coverage. It may be cheaper to use [employer] instead of the coverage provided through her 's employer. Teach back method used to verify understanding. Shared plan: Per DM SO, increase Lantus to 25 units. SMBG tid as directed, record readings. Check BG prior to exercise and immediately following activity. Avoid snacking after dinner and during the night. Use non-CHO foods to satisfy hunger, only if needed. [place] for a Lantus Savings Card online to decrease insulin costs. Investigate [employer] coverage options during open-enrollment. Phone follow up next week to review BG readings. Call if sx of hypoglycemia or glucose readings < 70 mg/dL. Liz verbalized understanding and agreed with plan of care and follow up. Tran Rodriguez RN - 02/27/2015 9:07 PM CDT I received this message from Antoinette Leal: Just sending this as FYI. Liz was in for DM check and physical today. A1C down almost 1% to 10.0 in the past month. I'd like to see her in April for recheck. She couldn't stay to see if you could see her but said she was going to call you today to review her blood sugar logs. documented in this encounter Plan of Treatment Upcoming Encounters Date Type Specialty Care Team Description 06/15/2022 Appointment Orthopedics Vanna Ulloa MD [address] [facility] [place] [address] (Wo rk) documented as of this encounter Visit Diagnoses Diagnosis Complex care coordination - Primary Diabetes type 2, uncontrolled Type II or unspecified type diabetes amy litus without mention of complication, uncontrolled Morbid obesity with BMI of 40.0-44.9, ad ult (HRC) documented in this encounter Care Teams Business Mail Entry Clerk Relationship Specialty Start Date End Date Antoinette Leal, ASSISTANT BRAND MANAGER, CLIENT RETENTION SPECIALIST PCP - General 04/15/14 01/09/17 [address] [place] [address] documented as of this encounter
--- OUTSIDE RECORDS SUMMARY | 2022-04-22 14:03 | XMS_ITS | Encounter Summary ---
:1965 [facility] Address [address] [place] [address] Care Team Providers Name Role Phone Antoinette Leal APRN, MAGED Primary Care Provider [phone] Encounter Details Date Type Department Care Team Description 12/17/2014 Imaging [place] [facility] Right foot pain [address] [facility] [place] [address] Social History Tobacco Use Types Packs/Day Years Used Date Smoking Tobacco: Never Assessed Sex Assigned at Date Recorded Not on file documented as of this encounter Miscellaneous Notes Miscellaneous - 06/24/2016 5:10 AM CSTNotes Recorded by Vangie Sam PA-C on 12/18/2014 at 12:30 PMReviewed right foot xray report, discussed at visit. ER CONSULTANT documented in this encounter Plan of Treatment Upcoming Encounters Date Type Specialty Care Team Description 06/15/2022 Appointment Orthopedics Vanna Ulloa MD [address] [place], [place] [phone] (Wo rk) documented as of this encounter Procedures Procedure Name Priority Date/Time Associated Diagnosis Comme nts XR FOOT RT 3+ VIEWS Routine 12/17/2014 4:06 PM Right foot pain Results for this CDT procedure are i n the results section. documented in this encounter Results XR Foot Rt 3+ Views (12/17/2014 4:06 PM CDT) Anatomical Region Laterality Modality Lower Extremity, Foot Other Specimen (Source) Anatomical Location Collection Method / Collectio n Time Received Time / Laterality Volume Narrative 12/17/2014 4:14 PM CDT COMPARISON: ??Right ankle radiograph dated 08/09/2006. FINDINGS: ??3 views. There is mild soft tissue swelling along the dorsal aspect of the foot. Minimal calcification of the Achilles tendon insertion. The remaining osseous structures, joint spaces and so ft tissues are intact. No acute osseous abnormality. No radiopaque foreign body. Procedure Note Harry Burris MD - 11/02/2015Format ting of this note might be different from the original. COMPARISON: Right ankle radiograph dated 08/09/2006. FINDINGS: 3 views. There is mild soft ti ssue swelling along the dorsal aspect of the foot. Minimal calcification of the Achilles tendon insertion. The remaining osseous structures, joint spaces and soft tissues are intact. No acute osseous abnormality . No radiopaque foreign body. Transcriptions Harry Burris MD - 06/24/2016 5:10 AM CSTNotes Recorded by Vangie Sam PA-C on 12/18/2014 at 12:30 PMReviewed right foot xray report, discussed at visit. Vangie Sam PA-C RAD GD documented in this encounter Visit Diagnoses Diagnosis Right foot pain Pain in limb documented in this encounter Care Teams Line Cleaner Relationship Specialty Start Date End Date Antoinette Leal, PRODUCT PROMOTER RETAIL PET, ENROLLMENT REPRESENTATIVE PCP - General 04/15/14 01/09/17 [facility] [facility] [place] [address] documented as of this encounter
--- OUTSIDE RECORDS SUMMARY | 2022-04-22 14:03 | XMS_ITS | Encounter Summary ---
:1965 Author Organization [facility] Address [address] [place] [address] Care Team Providers Name Role Phone Antoinette Leal APRN, CNP Primary Care Provider Encounter Details Date Type Department Care Team Description 01/25/2015 [facility]al APRN, [facility] [facility] [place] [address] 14[address] [facility] [phone] [place], [place] [address] (Wo rk) Social History Tobacco Use Types Packs/Day Years Used Date Smoking Tobacco: Never Assessed Sex Assigned at Date Recorded Not on file documented as of this encounter Plan of Treatment Upcoming Encounters Date Type Specialty Care Team Description 06/15/2022 Appointment Orthopedics Vanna Ulloa MD [address] [place] [address] (Wo rk) documented as of this encounter Visit Diagnoses Not on filedocumented in this encounter Care Teams Type Copy Examiner Relationship Specialty Start Date End Date Antoinette Leal APRN, MAGED PCP - General 04/15/14 01/09/[address] [facility] [place] [address] documented as of this encounter
--- OUTSIDE RECORDS SUMMARY | 2022-04-22 14:03 | XMS_ITS | Encounter Summary ---
:1965 Author Organization [facility] Address [address] [place] [address] Care Team Providers Name Role Phone Antoinette Leal APRN, CNP Primary Care Provider Encounter Details Date Type Department Care Team Description 02/27/2015 [facility]inette Leal APRN, [facility] [facility] [place] [address] 14[address] [facility] [phone] [place], [place] [address] (Wo rk) Social History Tobacco Use Types Packs/Day Years Used Date Smoking Tobacco: Never Assessed Sex Assigned at Date Recorded Not on file documented as of this encounter Plan of Treatment Upcoming Encounters Date Type Specialty Care Team Description 06/15/2022 Appointment Orthopedics Vanna Ulloa MD [address] [place] [address] (Wo rk) documented as of this encounter Visit Diagnoses Not on filedocumented in this encounter Care Teams Auto Repair Shop Manager Relationship Specialty Start Date End Date Antoinette Leal APRN, MAGED PCP - General 04/15/14 01/09/[address] [facility] [place], [place] [id number] documented as of this encounter
--- OUTSIDE RECORDS SUMMARY | 2022-04-22 14:04 | XMS_ITS | Encounter Summary ---
:1965 Author Organization [email or web address] Address [address] [place] [address] Care Team Providers Name Role Phone Antoinette Leal APRN, MAGED Primary Care Provider [phone] Encounter Details Date Type Department Care Team Description 04/17/2014 Lab Visit [facility] Type II or unspecified type 1415 [facility] . diabetes mellitus without [place] [address] mention of complication, not [phone] stated as uncon trolled Social History Tobacco Use Types Packs/Day Years Used Date Smoking Tobacco: Never Assessed Sex Assigned at Date Recorded Not on file documented as of this encounter Plan of Treatment Upcoming Encounters Date Type Specialty Care Team Description 06/15/2022 Appointment Orthopedics Vanna Ulloa MD [address] [place], [place] [address] (Wo rk) documented as of this encounter Procedures Procedure Name Priority Date/Time Associated Diagnosis Comme nts LIPID PANEL AND Routine 04/17/2014 12:43 Type II or Results for this DIRECT LDL(IF PM PERMASTONE APPLICATOR unspecified type procedure are in NEEDED) diabetes mellitus the result s without mention of section. complication, not stated as uncontrolled (HRC) LDL CHOLESTEROL, Routine 04/17/2014 12:43 Results for this DIRECT MEASURED PM PERMASTONE APPLICATOR procedure ar e in the results section. HGB A1C Routine 04/17/2014 12:43 Type II or Results for this PM PERMASTONE APPLICATOR unspecified type procedure a re in diabetes mellitus the result s without mention of section. complication, not stated as uncontrolled (HRC) documented in this encounter Results LDL Cholesterol, Direct Measured (04/17/2014 12:43 PM PERMASTONE APPLICATOR) athologist Signature LDL Direct 99 0 - 130 HP CONVERSION mg/dL Specimen Anatomical Collection Method Collection Time Receive d Time (Source) Location / / Volume Laterality 04/17/2014 12:43 04/17/2014 5:01 PM PERMASTONE APPLICATOR PM PERMASTONE APPLICATOR Narrative HP CONVERSION - 04/17/2014 6:22 PM PERMASTONE APPLICATOR Performed at [facility], [address] [place] [address] Vangie BALDERASC LAB_1 Performing Organization Address [facility] Phon e Number HP CONVERSION (ABNORMAL) Lipid Panel and Direct LDL(If Needed) (04/17/2014 12:43 PM PERMASTONE APPLICATOR) [facility] gist Method Time Signature Cholesterol 204 (H) 0 - 200 HP CONVERSION mg/dL Triglycerides 410 (H) 0 - 149 HP CONVERSION mg/dL HDL Cholesterol 37 (L) >39 mg/dL HP CONVERSION Cholesterol/HDL 5.5 HP CONVERSION Ratio Screen Length Of Fast 12.0 HP CONVERSION Specimen Anatomical Collection Method Collection Time Receive d Time (Source) Location / / Volume Laterality 04/17/2014 12:43 04/17/2014 5:01 PM PERMASTONE APPLICATOR PM PERMASTONE APPLICATOR Narrative HP CONVERSION - 04/17/2014 6:10 PM PERMASTONE APPLICATOR Performed at [facility], [address] [place] [address] Vangie BALDERASC LAB_1 Performing Organization Address City/[facility] Phon e Number HP CONVERSION (ABNORMAL) Hgb A1c (04/17/2014 12:43 PM PERMASTONE APPLICATOR) athologist Signature HGB A1C 11.0 (H) 4.0 - 5.6 % HP CONVERSION Specimen Anatomical Collection Method Collection Time Receive d Time (Source) Location / / Volume Laterality 04/17/2014 12:43 04/17/2014 3:17 PM PERMASTONE APPLICATOR PM PERMASTONE APPLICATOR Vangie JONES-C LAB_1 Performing Organization Address [facility] Phon e Number HP CONVERSION documented in this encounter Visit Diagnoses Diagnosis Type II or unspecified type diabetes amy litus without mention of complication, not stated as uncontrolled (HRC) Type II or unspecified type diabetes amy litus without mention of complication, not stated as uncontrolled documented in this encounter Care Teams Cable Driller Relationship Specialty Start Date End Date Antoinette Leal, MAT PUNCHER, AIRCRAFT MECHANIC STRUCTURES PCP - General 04/15/14 01/09/17 1415 [place] [address] documented as of this encounter
--- OUTSIDE RECORDS SUMMARY | 2022-04-22 14:04 | XMS_ITS | Encounter Summary ---
:1965 Author Organization [facility] Address [address] [place] [address] Care Team Providers Name Role Phone Vangie Sam PA-C Primary Care Provider Reason for Visit Reason Comments Diabetes Encounter Details Date Type Department Care Team Description 07/24/2013 Notes/Orders Glory Sam Type II or u nspecified Medicine Vangie Quezada PA-C type diabetes mellitus [address] without mention of [place] [address] [address] complication, not [phone] CHANA H[place]DER [phone] stated as uncontrolled [phone] (Primary Dx) (Work) Social History Tobacco Use Types Packs/Day Years Used Date Smoking Tobacco: Never Assessed Sex Assigned at Date Recorded Not on file documented as of this encounter Plan of Treatment Upcoming Encounters Date Type Specialty Care Team Description 06/15/2022 Appointment Orthopedics Vanna Ulloa MD [address] [place], [place] [address] (Wo rk) documented as of this encounter Visit Diagnoses Diagnosis Type II or unspecified type diabetes amy litus without mention of complication, not stated as uncontrolled (HRC) - Primary Type II or unspecified type diabetes amy litus without mention of complication, not stated as uncontrolled documented in this encounter Care Teams Lead Cook Relationship Specialty Start Date End Date Vangie Sam PA-C PCP - General 05/04/13 04/14/14 1415 [facility] [place] [id number] documented as of this encounter
--- OUTSIDE RECORDS SUMMARY | 2022-04-22 14:04 | XMS_ITS | Encounter Summary ---
:1965 Author Organization [facility] Address [address] [place] [address] Care Team Providers Name Role Phone Antoinette Leal APRN, MAGED Primary Care Provider [phone] Reason for Visit Reason Comments Appt. Needed Encounter Details Date Type Department Care Team Description 07/04/2014 Telephone [facility] Antoinette Leal APRN, Appt. Needed [address] [place] [address] [facility] [phone] [place], [place] [address] (Wo rk) Social History Tobacco Use Types Packs/Day Years Used Date Smoking Tobacco: Never Assessed Sex Assigned at Date Recorded Not on file documented as of this encounter Nursing Notes Bárbara Villagomez - 07/05/2014 9:10 AM CST Left vm asking pt to call to schedule [facility] lab and diabetes check. Nick Adames LPN - 07/05/2014 9:01 AM CST To front line. HATCHERY ASSISTANT Antoinette Leal APRN, CNP - 07/04/2014 1:10 PM CST Please call patient to schedule diabetes appointment with [facility] prior. Thanks. HATCHERY ASSISTANT documented in this encounter Plan of Treatment Upcoming Encounters Date Type Specialty Care Team Description 06/15/2022 Appointment Orthopedics Vanna Ulloa MD 8100 [facility] [place] [phone] (Wo rk) documented as of this encounter Visit Diagnoses Not on filedocumented in this encounter Care Teams Director Of Casework Department Relationship Specialty Start Date End Date Antoinette Leal APRN, DIESEL LOCOMOTIVE FIRER PCP - General 04/15/14 01/09/17 1415 [place] [address] documented as of this encounter
--- OUTSIDE RECORDS SUMMARY | 2022-04-22 14:04 | XMS_ITS | Encounter Summary ---
:1965 Author Organization [facility] Address [address] [place] [address] Care Team Providers Name Role Phone Vangie Sam Damien BROWNING Primary Care Provider Reason for Visit Reason Comments Provider Return Call Request Encounter Details Date Type Department Care Team Description 12/05/2013 Telephone Antoinette Daugherty, Provider Return Call Medicine MEDIA EXECUTIVE, BUS PERSON DISHWASHER Request 1415 [facility] . 1415 [place] [address] [place], [place] [address] (Wo rk) Social History Tobacco Use Types Packs/Day Years Used Date Smoking Tobacco: Never Assessed Sex Assigned at Date Recorded Not on file documented as of this encounter Nursing Notes Rosalinda Sanon - 12/06/2013 1:[address] Garrett 7-29-14 Rosalinda Sanon - 12/06/2013 9:31 AM CDT Vick LAM x 2 to c/b at [phone]. Antoinette Leal, MEDIA EXECUTIVE, BUS PERSON DISHWASHER - 12/05/2013 3:21 PM CDT Yes, she needs to see an orthopedist to establish care. Thanks. Rosalinda Sanon - 12/05/2013 2:08 PM CDT I spoke with Liz to schedule orthopedic consult, they have finance issues and she is wondering howimportant it is to be seen? documented in this encounter Plan of Treatment Upcoming Encounters Date Type Specialty Care Team Description 06/15/2022 Appointment Orthopedics Vanna Ulloa MD 8[address] [facility] [place] [address] (Wo rk) documented as of this encounter Visit Diagnoses Not on filedocumented in this encounter Care Teams Seed Cone Picker Relationship Specialty Start Date End Date Vangie Sam PA-C PCP - General 05/04/13 04/14/14 1415 [facility] [place] [id number] documented as of this encounter
--- OUTSIDE RECORDS SUMMARY | 2022-04-22 14:04 | XMS_ITS | Encounter Summary ---
:1965 Author Organization [facility] Address [address] [place] [address] Care Team Providers Name Role Phone Antoinette Leal APRN, DIRECTOR VACCINE Primary Care Provider [phone] Reason for Visit Reason Comments Diabetes Encounter Details Date Type Department Care Team Description 12/02/2014 Office Visit Glory Conteh, Diabetes typ e 2, uncontrolled (Primary Dx); Medicine YOHAN Carmen Unspecified essential hypertension; [address] Chronic rhinitis; [address] Ave Other and unspecified hyperlipidemia [place] [address] [place] [phone] Social History Tobacco Use Types Packs/Day Years Used Date Smoking Tobacco: Never Assessed Sex Assigned at Date Recorded Not on file documented as of this encounter Last Filed Vital Signs Vital Sign Reading Time Taken Comments Blood Pressure 128/82 12/02/2014 10:05 AM CDT Pulse - - Temperature - - Respiratory Rate - - Oxygen Saturation - - Inhaled Oxygen Concentration - - Weight 111.9 kg (246 lb 12 oz) 12/02/2014 10:05 AM CDT Height 167.6 cm (5' 6) 12/02/2014 10:05 AM CDT Body Mass Index 39.83 12/02/2014 10:05 AM CDT documented in this encounter Progress Notes William Conteh MBBS - 12/02/2014 6:07 PM CDT CLINIC VISIT SUBJECTIVE: This is a 49-year-old woman with a well-established diagnosis of diabetes mellitus type 2 who returns today for a followup. Her last hemoglobin A1c was back in April 2014 it was at 11.0.In the interim she has decreased her dose of metformin given that 2000 mg was causing diarrhea. She finds that with 1500 mg this does not happen. She has not made any other changes. She occurrence of several contradictions when asked about her numbers in about her diet compliance but after receiving today's hemoglobin A1c which is 10.9 it is clear that she has not been probably taken very good care of herself for pain he presented to her numbers in a diligent weight. She continues to be asymptomatic. Past medical history: Significant for depression, gastroesophageal reflux, hyperlipidemia, hypertension and allergic rhinitis among other issues besides her diabetes. Please see complete problem list in Epic. Medications: Reviewed. See Medication List in [facility]. Adverse Drug Reactions: Reviewed in health profile in [facility]. Review of systems: No fevers. No cardiovascular symptoms. No respiratory symptoms. No gastrointestinal symptoms. OBJECTIVE: Vital Signs: Weight 246 pounds. Blood pressure 128/82. Obese woman who appears to be in no acute distress. Heart: RR without murmurs, rubs, or gallops. Respiratory: Normal respiratory effort. Lungs are clear with good breath sounds. Abdomen: The abdomen was flat, soft and nontender without guarding rebound or masses. Extremities: Full ROM without limitation, deformity or edema. Neuro: CN 2-12 intact. Strength and sensation intact in all extremities. Motor function intact. ASSESSMENT AND PLAN: The total time for today's visit was 30 minutes and greater than 70% of this time was employed in counseling and educating about diabetes mellitus type 2. I have explained to the patient that it is clear at this point that she is not meeting goals of treatment. I have extensively reviewed with her the possible consequences of the complications from diabetes mellitus type 2. I have explained that it could be time that we start considering placing her in a splint but the first step would be to improve her compliance with medications, diet and testing before making such a decision. I asked her to increase her glipizide from 5 to 10 mg a day and keep adequate tract of her blood sugars on a daily basis and bring those results 2 weeks from now. However she will be traveling out of the country and states that the earliest she could come back to the clinic as one month. I have therefore recommended that she does so at that time and we will review her numbers with full compliance and talk further about whether or not she is a good candidate to get started on insulin. The patient was discharged ambulatory and in stable condition. *SH~DNS~SOAP documented in this encounter Plan of Treatment Upcoming Encounters Date Type Specialty Care Team Description 06/15/2022 Appointment Orthopedics Vanna Ulloa MD 8[address] [facility] [place] [address] (Wo rk) documented as of this encounter Visit Diagnoses Diagnosis Diabetes type 2, uncontrolled - Primary Type II or unspecified type diabetes amy litus without mention of complication, uncontrolled Unspecified essential hypertension (HRC) Unspecified essential hypertension Chronic rhinitis Other and unspecified hyperlipidemia (HR C) Other and unspecified hyperlipidemia documented in this encounter Care Teams Vulcanizer Rubber Plate Relationship Specialty Start Date End Date Antoinette Leal, NETWORK TECHNOLOGY INSTRUCTOR, DIRECTOR VACCINE PCP - General 04/15/14 01/09/17 1415 [facility] [place] [id number] documented as of this encounter
--- OUTSIDE RECORDS SUMMARY | 2022-04-22 14:04 | XMS_ITS | Encounter Summary ---
:1965 Author Organization [facility] Address [address] [place] [address] Care Team Providers Name Role Phone Vangie Sam PA-C Primary Care Provider Reason for Referral Specialty Diagnoses / Procedures Referred By Contact Refer red To Contact Shruti Schrader PA -C [address] [place] [address] Referral ID Status Reason Start Date Expiration Date Visits Requ ested Visits Authorized ICE ADMITTING CLERK Reason for Visit Reason Comments Diabetes Annual Exam Encounter Details Date Type Department Care Team Description 07/18/2013 Office Visit Harry Landaverde, Type II or u nspecified type diabetes mellitus without mention of complication, not stated as uncontrolled (Primary Dx); Ophthalmology OD Presbyopia 1415 [facility] [address] [place] [address] Sharda Beard [phone] [place], [place] [phone] Social History Tobacco Use Types Packs/Day Years Used Date Smoking Tobacco: Never Assessed Sex Assigned at Date Recorded Not on file documented as of this encounter Progress Notes Harry Montaño, OD - 07/18/2013 2:49 PM CST Patient is alert and feels well. Diabetic eye exam. No signs of diabetic retinopathy. Diagnosis (ICD9) and Associated Orders ICD-9-CM 1. DM Type2 250.00 TN REFRACTION 2. Presbyopia 367.4 [place] REFRACTION Plan: Discussed findings with patient. Routine eye exam. OTC readers per pt. Recheck 1 year(s) or sooner as needed. ICE ADMITTING CLERK documented in this encounter Plan of Treatment Upcoming Encounters Date Type Specialty Care Team Description 06/15/2022 Appointment Orthopedics Vanna Ulloa MD 8100 [facility] [place] [address] (Wo rk) Scheduled Referrals Name Type Priority Associated Diagnoses Order S chedule Ophthalmology Referral Routine Type II or unspecified Orde red: Consult-Adult/Peds type diabetes mellitus 07/18/2013, without mention of Expires: 07/18/2013 complication, not stated as uncontrolled (HRC) documented as of this encounter Visit Diagnoses Diagnosis Type II or unspecified type diabetes amy litus without mention of complication, not stated as uncontrolled (HRC) - Primary Type II or unspecified type diabetes amy litus without mention of complication, not stated as uncontrolled Presbyopia documented in this encounter Care Teams Sanitation Worker Relationship Specialty Start Date End Date Vangie Sam PA-C PCP - General 05/04/13 04/14/14 1415 [facility] [place] [address] documented as of this encounter
--- OUTSIDE RECORDS SUMMARY | 2022-04-22 14:04 | XMS_ITS | Encounter Summary ---
:1965 Author Organization [facility] Address [address] [place] [address] Care Team Providers Name Role Phone Antoinette Leal APRN, CNP Primary Care Provider Encounter Details Date Type Department Care Team Description 07/30/2014 Notes/Orders [facility] Antoinette Leal APRN, [address] [place] [address] 1415 [facility] [phone] [place], [place] [address] (Wo rk) Social History Tobacco Use Types Packs/Day Years Used Date Smoking Tobacco: Never Assessed Sex Assigned at Date Recorded Not on file documented as of this encounter Miscellaneous Notes Letter - Antoinette Leal APRN, CNP - 07/30/2014 12:00 AM CDT 07/30/2014 Liz Phelps [address] [place] [id number] : 1965 Dear Liz: Antoinette Leal APRN, CNP has reviewed your medical record and noticed you have not scheduled your diabetes visit. We want to make sure your diabetes treatment plan is right for you. Please call and schedule your visit at [phone]. We look forward to hearing from you, Antoinette Leal APRN, CNP VINYL TOP INSTALLER documented in this encounter Plan of Treatment Upcoming Encounters Date Type Specialty Care Team Description 06/15/2022 Appointment Orthopedics Vanna Ulloa MD 8100 [facility] [place] [address] (Wo rk) documented as of this encounter Visit Diagnoses Not on filedocumented in this encounter Care Teams Nutritionist Relationship Specialty Start Date End Date Antoinette Leal APRN, TEXTILE COLORIST DYER PCP - General 04/15/14 01/09/17 1415 [facility] [place] [address] documented as of this encounter
--- OUTSIDE RECORDS SUMMARY | 2022-04-22 14:04 | XMS_ITS | Encounter Summary ---
:1965 Author Organization [facility] Address [address] [place] [address] Care Team Providers Name Role Phone Antoinette Leal APRN, MAGED Primary Care Provider Reason for Visit Reason Comments HC Phone Visit Encounter Details Date Type Department Care Team Description 04/22/2014 Care Coord Phone Tran Greco R N [facility] Phone Visit Medicine 1415 [facility] 1415 [facility] [place] [address] [place] [address] [phone] Social History Tobacco Use Types Packs/Day Years Used Date Smoking Tobacco: Never Assessed Sex Assigned at Date Recorded Not on file documented as of this encounter Progress Notes Tran Rodriguez RN - 06/12/2014 12:27 PM CST Structural Iron Worker - Phone Call Contact with: Liz Reason for call: Care Coordination Discussion/actions: Outreach to Liz. She didn't return my messages because her life has been too busy. Liz reports she gave up and ended up just paying for her medication. She has medical insurance, but doesn't understands what her coverage is for medications. I offered to meet with Liz to review her insurance coverage and try to find resources to help withher prescription costs, as well as, assist with her DM management. However, Liz declined to schedule an appt at this time because her life is too hectic right now. She agreed to take my name and contact information when things slow down in the next few weeks. Shared plan: Contact information provided and encouraged Liz to call back to schedule an appt. Liz verbalized understanding and agreed with plan of care and follow up. ECT BUILDER Tran Rodriguez RN - 06/12/2014 12:27 PM CST Left message requesting a return call. Please transfer to [phone]. I received a referral from Antoinette Leal with the following information: I sent an [facility] referral for this patient. She is having problems paying for prescriptions and went over a year without being seen for her DM and her A1C is 11 now. ECT BUILDER documented in this encounter Plan of Treatment Upcoming Encounters Date Type Specialty Care Team Description 06/15/2022 Appointment Orthopedics Vanna Ulloa MD 8100 [facility] [place]TIEL [phone] (Wo rk) documented as of this encounter Visit Diagnoses Diagnosis Complex care coordination - Primary Diabetes type 2, uncontrolled Type II or unspecified type diabetes amy litus without mention of complication, uncontrolled Inadequate community resources documented in this encounter Care Teams Counseling Center Director Relationship Specialty Start Date End Date Antoinette Leal, MEMORY CARE PROGRAM RESIDENT, BUSINESS LEADER PCP - General 04/15/14 01/09/17 1415 [place] [address] documented as of this encounter
--- OUTSIDE RECORDS SUMMARY | 2022-04-22 14:04 | XMS_ITS | Encounter Summary ---
:1965 Author Organization [facility] Address [address] [place] [address] Care Team Providers Name Role Phone Antoinette Leal APRN, CNP Primary Care Provider Encounter Details Date Type Department Care Team Description 05/27/2014 Notes/Orders [facility] Antoinette Leal APRN, [address] [place] [address] 1415 [facility] [phone] [place], [place] [address] (Wo rk) Social History Tobacco Use Types Packs/Day Years Used Date Smoking Tobacco: Never Assessed Sex Assigned at Date Recorded Not on file documented as of this encounter Miscellaneous Notes Letter - Antoinette Leal APRN, CNP - 05/27/2014 12:00 AM CST 05/27/2014 Liz Phelps [address] [place] [id number] : 1965 Dear Liz: I am contacting you with a reminder that it is time for your diabetes lab tests. To prepare for thisvisit, you will need to have the following tests: Hemoglobin A1C. You do not have to fast for these labs. You will not need to give a urine specimen. You can schedule your lab appointment at [phone]. We look forward to seeing you again. Antoinette Leal APRN, BARREL ROLLER RELER documented in this encounter Plan of Treatment Upcoming Encounters Date Type Specialty Care Team Description 06/15/2022 Appointment Orthopedics Vanna Ulloa MD 8100 [facility] [place] [address] (Wo rk) documented as of this encounter Visit Diagnoses Not on filedocumented in this encounter Care Teams Advanced Practice Psychiatric Nurse Relationship Specialty Start Date End Date Antoinette Leal APRN, BARREL ROLLER PCP - General 04/15/14 01/09/17 1415 [facility] [place] [id number] documented as of this encounter
--- OUTSIDE RECORDS SUMMARY | 2022-04-22 14:04 | XMS_ITS | Encounter Summary ---
:1965 Author Organization [facility] Address [address] [place] [address] Care Team Providers Name Role Phone Antoinette Leal APRN, MAGED Primary Care Provider [phone] Encounter Details Date Type Department Care Team Description 04/17/2014 Lab Visit [facility] Unspecified essential hypert ension; [address] Diabetes type 2, [place] [address] Social History Tobacco Use Types Packs/Day Years Used Date Smoking Tobacco: Never Assessed Sex Assigned at Date Recorded Not on file documented as of this encounter Plan of Treatment Upcoming Encounters Date Type Specialty Care Team Description 06/15/2022 Appointment Orthopedics Vanna Ulloa MD [address] [place], [place] [address] (Wo rk) documented as of this encounter Procedures Procedure Name Priority Date/Time Associated Diagnosis Comme nts ALBUMIN/CREAT RATIO Routine 04/17/2014 2:27 PM Diabetes type 2 , Results for this CAN LABELER uncontrolled (HRC) procedure are in the results section. CREATININE / GFR Routine 04/17/2014 2:21 PM Unspecified essent ial Results for this CAN LABELER hypertension (HRC) procedure are in the results section. ELECTROLYTE PANEL Routine 04/17/2014 2:21 PM Unspecified essen tial Results for this CAN LABELER hypertension (HRC) procedure are in the results section. documented in this encounter Results Microalb/Creat Ratio (04/17/2014 2:27 PM CAN LABELER) Analysis Performed At Patho logist Time Signature Microalbumin 40.4 mg/L HP CONVERSION Urine U Creat Random 173 mg/dL HP CONVERSION Microalbumin/Crea 23.4 0.0 - 30.0 HP CONVERSI ON tinine Ratio Specimen Anatomical Collection Method Collection Time Receive d Time (Source) Location / / Volume Laterality 04/17/2014 2:27 PM 4 6:39 CAN LABELER PM CAN LABELER Antoinette Leal APRN, CNP LAB_1 Performing Organization Address City/State/ZIP Code Phon e Number HP CONVERSION (ABNORMAL) Electrolyte Panel (04/17/2014 2:21 PM CAN LABELER) P athologist Signature Sodium 134 (L) 137 - 147 HP CONVERSION mEq/L Potassium 4.3 3.5 - 5.2 HP CONVERSION mEq/L Chloride 97 (L) 98 - 110 HP CONVERSION mEq/L Bicarbonate 28 23 - 33 HP CONVERSION mmol/L Specimen Anatomical Collection Method Collection Time Receive d Time (Source) Location / / Volume Laterality 04/17/2014 2:21 PM 4 5:01 CAN LABELER PM CAN LABELER Narrative HP CONVERSION - 04/17/2014 5:44 PM CAN LABELER Performed at [facility], [address] [place] [address] Antoinette Leal APRN, CNP LAB_1 Performing Organization Address City/[facility] Phon e Number HP CONVERSION Creatinine / GFR (04/17/2014 2:21 PM CAN LABELER) P athologist Signature Creatinine 0.9 0.4 - 1.3 HP CONVERSION Serum mg/dL [...] (Source) Location / / Volume Laterality 04/17/2014 2:21 PM 4 5:01 CAN LABELER PM CAN LABELER Narrative HP CONVERSION - 04/17/2014 5:44 PM CAN LABELER Performed at [facility], [address] [facility], [place] [address] Antoinette Leal APRN, CNP LAB_1 Performing Organization Address City/State/ZIP Code Phon e Number HP CONVERSION documented in this encounter Visit Diagnoses Diagnosis Unspecified essential hypertension (HRC) Unspecified essential hypertension Diabetes type 2, uncontrolled Type II or unspecified type diabetes amy litus without mention of complication, uncontrolled documented in this encounter Care Teams Certified Professional Ergonomist Relationship Specialty Start Date End Date Antoinette Leal APRN, CNP PCP - General 04/15/14 01/09/17 [facility] [place] [address] documented as of this encounter
--- OUTSIDE RECORDS SUMMARY | 2022-04-22 14:04 | XMS_ITS | Encounter Summary ---
:1965 Author Organization [facility] Address [address] [place] [address] Care Team Providers Name Role Phone Antoinette Leal APRN, MAGED Primary Care Provider [phone] Reason for Visit Reason Comments Injection Encounter Details Date Type Department Care Team Description 08/27/2014 Nursing Visit [facility] Excessive or frequent Medicine menstruation (Primary [address] . [place]x) [place] [address] Social History Tobacco Use Types Packs/Day Years Used Date Smoking Tobacco: Never Assessed Sex Assigned at Date Recorded Not on file documented as of this encounter Progress Notes Julieta Joes LPN - 08/27/2014 4:18 PM CDT Injection given per standing order. DEPO; next dose due 11/12/14 - 11/26/14. documented in this encounter Plan of Treatment Upcoming Encounters Date Type Specialty Care Team Description 06/15/2022 Appointment Orthopedics Vanna Ulloa MD [address] [place], [place] [address] (Wo rk) documented as of this encounter Visit Diagnoses Diagnosis Excessive or frequent menstruation - Kathy karina documented in this encounter Care Teams Effervescent Salts Compounder Relationship Specialty Start Date End Date Antoinette Leal APRN, BISQUE BRUSHER PCP - General 04/15/14 01/09/17 [address] [place] [id number] documented as of this encounter
--- OUTSIDE RECORDS SUMMARY | 2022-04-22 14:04 | XMS_ITS | Encounter Summary ---
:1965 Author Organization [facility] Address [address] [place] [address] Care Team Providers Name Role Phone Antoinette Leal APRN, MILLER HELPER DISTILLERY Primary Care Provider Reason for Visit Reason Comments BODY ACHES Encounter Details Date Type Department Care Team Description 05/03/2014 Nurse Triage [facility] Antoinette Leal APRN, BODY ACHES [address] [employer] [place] [address] [facility] [phone] [place], [place] [address] (Wo rk) Social History Tobacco Use Types Packs/Day Years Used Date Smoking Tobacco: Never Assessed Sex Assigned at Date Recorded Not on file documented as of this encounter Nursing Notes Jacklyn Plascencia RN - 05/03/2014 12:45 PM CST Protocol: INFLUENZA - [id number] Affirmative: Probable influenza with no complications and not HIGH RISK Disposition of Home Care suggested. pt awoke with slight cough and body aches today, afebrile and no other sx currently MACHINE OPERATOR Josefina Armstrong - 05/03/2014 12:29 PM CST Pt states she has body aches, fatigue. Please advise. documented in this encounter Plan of Treatment Upcoming Encounters Date Type Specialty Care Team Description 06/15/2022 Appointment Orthopedics Vanna Ulloa MD [address] [facility] [place] [address] (Wo rk) documented as of this encounter Visit Diagnoses Not on filedocumented in this encounter Care Teams City Marshal Relationship Specialty Start Date End Date Antoinette Leal, HOT TAMALE MAN, MILLER HELPER DISTILLERY PCP - General 04/15/14 01/09/17 [address] [facility] [place] [address] documented as of this encounter
--- OUTSIDE RECORDS SUMMARY | 2022-04-22 14:04 | XMS_ITS | Encounter Summary ---
:1965 Author Organization [employer] Address [address] [place] [address] Care Team Providers Name Role Phone Vangie Sam Damien BROWNING Primary Care Provider Reason for Visit Reason Comments Foot Pain Encounter Details Date Type Department Care Team Description 12/03/2013 Office Visit Antoinette Daugherty, Closed l eft fibular fracture (Primary Dx); Medicine [facility], MAGED Left foot pain [address] [place] [address] Ave [phone] [place], [place] [address] Social History Tobacco Use Types Packs/Day Years Used Date Smoking Tobacco: Never Assessed Sex Assigned at Date Recorded Not on file documented as of this encounter Last Filed Vital Signs Vital Sign Reading Time Taken Comments Blood Pressure - - Pulse - - Temperature - - Respiratory Rate - - Oxygen Saturation - - Inhaled Oxygen Concentration - - Weight 117.9 kg (260 lb) 12/03/2013 5:23 PM CDT Height - - Body Mass Index 41.34 01/18/2012 1:45 PM CDT documented in this encounter Progress Notes Antoinette Leal, SILVIANO, MAGED - 12/03/2013 7:06 PM CDT Subjective: Chief Complaint Patient presents with ??? Foot Pain Injured Left foot/ankle Tuesday11/25/13 in her yard. Tripped on a tree root and fell. Has swelling and bruising to left foot. Liz Phelps is a 48 y.o. female who presents for evaluation of left ankle/foot pain s/p fall ather home eight days ago. She was in her yard when this occurred and does not remember if the ankle was rotated laterally as she fell or not. States she has sprained the ankle previously. She is walkingwith a crutch. She continues to have pain and states it does not seem to be improving. She is using ibuprofen with minimal relief. Medical History Review: Patient's medications, allergies, past medical, surgical and problem lists along with social and family histories were updated, reviewed and reconciled as needed in the EMR. Review of Systems Pertinent ROS as listed in HPI. Objective: GEN: Well Appearing, NAD. Filed Vitals: 12/03/13 1723 Weight: 260 lb (117.935 kg) MS: The left lateral ankle and foot have a moderate effusion and some purple bruising, especially lateral to the 5th metatarsal. This is tender to touch. She has full ROM with some discomfort during exercises. She cannot bear weight on the extremity without pain. Good pulses. No break in skin integrity. No erythema present. Left foot/ankle series: COMPARISON: None. FINDINGS: There is a fracture, possibly comminuted, off the distal fibular tip, with moderate overlying swelling. Left ankle joint appears intact. No obvious fracture in the left foot. Assessment: Diagnosis (ICD9) and Associated Orders ICD-9-CM 1. Closed left fibular fracture 823.81 ORTHOPEDICS CONSULT ADULT/PEDS (AMB) 2. Left foot pain 729.5 XR Foot/Ankle Series Left Plan: 1. Reviewed x-ray showing fracture of the distal fibular tip with swelling. She is fitted with a boot and I have also provided an orthopedics referral. Discussed she should wear the boot and use the crutches until she meets with the orthopedist. Recommended ice packs and NSAIDs for now. She will schedule the orthopedics referral. F/U as needed. documented in this encounter Plan of Treatment Upcoming Encounters Date Type Specialty Care Team Description 06/15/2022 Appointment Orthopedics Vanna Ulloa MD [address] [facility] [place] [address] (Wo rk) documented as of this encounter Visit Diagnoses Diagnosis Closed left fibular fracture - Primary Closed fracture of unspecified part of f ibula Left foot pain Pain in limb documented in this encounter Care Teams Torpedo Man Relationship Specialty Start Date End Date Vangie Sam PA-C PCP - General 05/04/13 04/14/14 [address] [facility] [place] [address] documented as of this encounter
--- OUTSIDE RECORDS SUMMARY | 2022-04-22 14:04 | XMS_ITS | Encounter Summary ---
:1965 Author Organization [facility] Address [address] [place] [address] Care Team Providers Name Role Phone Jose JabigailVangie crowley Damien BROWNING Primary Care Provider [phone] Reason for Visit Reason Comments Annual Exam Encounter Details Date Type Department Care Team Description 02/19/2014 Office Visit [place] [address] Manan Ahumada Routine drop pit worker ecological examination (Primary Dx); Obstetrics/Gynecolog tori Valentine MD Menorrhagia; [address]ys[address]orrhea; [place] [address] Roger Cecilia Alphonso Hot flashes; [phone] Screening for malignant neoplasm of the cervix; [place] Other screening mammogram; [address] Need for influenza vaccination Social History Tobacco Use Types Packs/Day Years Used Date Smoking Tobacco: Never Assessed Sex Assigned at Date Recorded Not on file documented as of this encounter Last Filed Vital Signs Vital Sign Reading Time Taken Comments Blood Pressure 120/78 02/19/2014 11:48 AM CDT Pulse 80 02/19/2014 11:48 AM CDT Temperature - - Respiratory Rate - - Oxygen Saturation - - Inhaled Oxygen Concentration - - Weight 117.7 kg (259 lb 6.4 oz) 02/19/2014 11:48 AM CDT Height 167.6 cm (5' 6) 02/19/2014 11:48 AM CDT Body Mass Index 41.87 02/19/2014 11:48 AM CDT documented in this encounter Progress Notes Manan Ahumada MD - 02/19/2014 12:53 PM CDT CLINIC VISIT: ANNUAL EXAM SUBJECTIVE: Patient is a 48 y.o. , Patient's last menstrual period was 02/14/2014 (exact date)., using tubal ligation for contraception, who is here for an annual gynecologic exam. She receives her primary care in our family medicine Department. Her real concern for today is menorrhagia and dysmenorrhea. Her menses are still fairly regular, sometimes occurring every 3 weeks, with significant dysmenorrhea.The cramping usually starts 2 days before her menses. Her flow can be quite heavy, with passage of large clots at times. She is also complaining of hot flashes and night sweats. Past Medical History Diagnosis Date ??? Diabetes mellitus (HCC) Type 2 ??? Unspecified congenital anomaly of heart ??? Irritable bowel syndrome ??? Migraine, unspecified, without mention of intractable migraine without mention of status migrainosus ??? Urinary tract infection ??? Varicella Past Surgical History Procedure Laterality Date ??? Tubal ligation ??? [place] tooth extraction Family History Problem Relation Age of Onset [...] Hx ??? Thyroid Disease Neg Hx ??? Alzheimer's Dz Maternal Grandmother ??? Cancer Paternal Grandmother ??? Labor Paternal Grandmother ??? Heart Disease Paternal Grandfather History Social History ??? Marital Status: Spouse Name: N/A Number of Children: N/A ??? 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 Smoking status: Former Smoker ??? Smokeless tobacco: Never Used Comment: Quit smoking: ??? Alcohol Use: Not on file Comment: Alcoholic Drinks/day: Amount:1-2 drinks; Freq:2-4/Month ; ??? Drug Use: No ??? Sexual Activity: Partners: Male Control/ Protection: Surgical Other Topics Concern ??? Bike Helmet No ??? City Water No ??? Exercise No ??? Guns In Home Yes ??? Seat Belt Yes ??? Special Diet No ??? Weight Concern No Social History Narrative . has daughter with telma who just started high school. Outpatient Prescriptions Prior to Visit Medication Sig Dispense Refill ??? aspirin EC 81 mg EC tablet Take 1 tablet by mouth daily (every 24 hours). 100 tablet 13 ??? blood glucose (ONE TOUCH ULTRA) test strip Use 1 strip as instructed 3 times daily. 100 strip 6 ??? Blood Glucose Control, Normal (ONETOUCH ULTRA CONTROL) Soln 8 2 ??? fluticasone (FLONASE) 50 mcg/actuation nasal spray Place 1-2 sprays into each nostril daily (every 24 hours). 16 g 3 ??? glipiZIDE (GLUCOTROL XL) 5 mg 24 hr tablet Take 1 tablet by mouth daily (every 24 hours). Do notcut/crush/chew 90 tablet 3 ??? ibuprofen (MOTRIN) 800 mg tablet Take 1 tablet by mouth 3 times daily. 90 tablet 1 ??? lisinopril (PRINIVIL, ZESTRIL) 20 mg tablet Take 1 tablet by mouth daily (every 24 hours). 30 tablet 12 ??? metFORMIN (GLUCOPHAGE-XR) 500 mg XR 24 hour tablet Take 1 tablet by mouth 2 times daily. 60 tablet 12 ??? multivitamin (THERAGRAN) tablet Take 1 tablet by mouth daily (every 24 hours). 100 ??? Waldo-3 Fatty Acids Cap daily (every 24 hours). ??? Omeprazole Magnesium (PRILOSEC OTC) 20 mg tablet Take 1 tablet by mouth daily (every 24 hours). LW Comment:flex spending account LW Addl Instr:Indicated for: Acid Reflux 90 3 ??? ONE TOUCH ULTRA SMART monitoring kit LW Addl Instr:Indicated for: Diabetes 1 ??? ONE TOUCH ULTRASOFT LANCETS Misc 1 each by To Test route. LW Addl Instr:Indicated for: Diabetes 100 6 No facility-administered medications prior to visit. No Known Allergies Review of systems: Negative except as noted above OBJECTIVE: Filed Vitals: 02/19/14 1148 BP: 120/78 Pulse: 80 Height: 5' 6 (1.676 m) Weight: 259 lb 6.4 oz (117.663 kg) Body mass index is 41.89 kg/(m^2). An exam was performed with a nurse present in the room. Breasts are without masses or discharge bilaterally. The axillae are without masses. Pelvic: external genitalia, urethra and vagina are without lesions. Cervix appears parous, without lesions. PAP smear and HPV test were obtained. On bimanual exam, uterus is normal size and anterior. No adnexal masses are noted ASSESSMENT: Normal gynecologic exam Menorrhagia and dysmenorrhea PLAN: We discussed treatment options for menorrhagia and dysmenorrhea at length, including OCPs, Depo-Provera, Mirena IUD, endometrial ablation, laparoscopy for evaluation of possible endometriosis, and hysterectomy, with possible removal of the ovaries if endometriosis is present. For now, she would like to try the Depo-Provera, which she has used in the past. Her only problem with this in the past was acting. She received a dose of 150 mg IM today, and can continue to receive that every 12 weeks until she is due for an annual exam in one year. We will check a TSH. Will notify patient of PAP, HPV, and TSH results when available. She was given a flu vaccine. She will schedule a mammogram. She will return in one year for an annual exam, sooner PRN. TT [address] 14 minutes documented in this encounter Plan of Treatment Upcoming Encounters Date Type Specialty Care Team Description 06/15/2022 Appointment Orthopedics Vanna Ulloa MD [address] [place], [place] [address] (Wo rk) documented as of this encounter Procedures Procedure Name Priority Date/Time Associated Comments Diagnosis HPV WITH 16 18 Routine 02/19/2014 12:24 PM Result s for this GENOTYPING, CDT procedure are i n CERVICAL/ENDOCERVICA the res ults L section. ANATOMICAL PATH Routine 02/19/2014 12:24 PM Resul ts for this LIQUID BASED CDT procedure are i n the results section. PAP SMEAR ORDER Routine 02/19/2014 12:24 PM Screening for Resu lts for this CDT malignant neoplasm procedure are in of the cervix the results section. documented in this encounter Results Pap Smear (02/19/2014 12:24 PM CDT) Specimen (Source) Anatomical Collection Method Collection Time Re ceived Time Location / / Volume Laterality 02/19/2014 12:24 PM CDT Narrative HP CONVERSION - 03/05/2014 4:14 PM CDT FINAL GYNECOLOGICAL CYTOLOGY REPORT Pathology #: [id number] ?Date Obtained: 02/19/2014 ? Date Received: 02/20/2014 INTERPRETATION/RESULTS: Negative for Intraepithelial Lesion or M alignancy. SPECIMEN ADEQUACY: Satisfactory for Evaluation. ??No endoce rvical cells/transformation zone component present. Verified on 03/05/2014 ??by EULALIA COSTA SON, CT(ASCP) (electronic signature) CLINICAL NOTES: ?Abnormal bleeding: No, LMP: 02/14/14, Hormonal TX: No LIQUID BASED PAP SMEAR SPECIMEN TYPE: ?CERVICAL & HPV REGARDLESS OF PA P RESULT PLEASE NOTE: The pap smear is a screening test design ed to aid in the detection of cervical cancer and its pre cursor lesions. It is not a diagnostic procedure and ross uld not be used as the sole means of detecting cervical cancer. Both false-positive and false-negative report s may occur. ? End of Report Manan Ahumada MD LAB_1 Performing Organization Address City/State/ZIP Code Phon e Number HP CONVERSION HPV with 16 18 Genotyping (02/19/2014 12:24 PM CDT) [facility] Method Time Signature HPV High Risk [...] and its pe rformance characteristics determined by [facility]. It has not been cleared or approved by [facility]. The laboratory is regulated under CLIA as qualified to perform high-complexity testing. This test is used for clinical purposes. It should not be regarded as investigational or fo r research. Specimen Anatomical Collection Method Collection Time Receive d Time (Source) Location / / Volume Laterality 02/19/2014 12:24 02/19/2014 PM CDT 12:24 PM CDT Manan Ahumada MD LAB_1 Performing Organization Address City/[facility]/ZIP Code Phon e Number HP CONVERSION Pap Smear Order (02/19/2014 12:24 PM CDT) [facility] gist Method Time Signature Pap Smear Collected HP CONVERSION Monolayer tracking test Specimen Anatomical Collection Method Collection Time Receive d Time (Source) Location / / Volume Laterality 02/19/2014 12:24 02/20/2014 9:20 PM CDT AM CDT Manan Ahumada MD LAB_1 Performing Organization Address [facility] Phon e Number HP CONVERSION documented in this encounter Visit Diagnoses Diagnosis Routine gynecological examination - Prim kandice Menorrhagia Excessive or frequent menstruation Dysmenorrhea Hot flashes Symptomatic menopausal or female climact lib[place] states Screening for malignant neoplasm of the cervix Other screening mammogram Need for influenza vaccination Need for prophylactic vaccination and in oculation against influenza documented in this encounter Care Teams Convex Grinder Relationship Specialty Start Date End Date Vangie Sam PA-C PCP - General 05/04/13 04/14/14 [address] [place] [id number] documented as of this encounter
--- OUTSIDE RECORDS SUMMARY | 2022-04-22 14:04 | XMS_ITS | Encounter Summary ---
:1965 Author Organization [facility] Address [address] [place] [address] Care Team Providers Name Role Phone Ziaalberto Vangie Quezada PA-C Primary Care Provider Encounter Details Date Type Department Care Team Description 02/19/2014 Lab Visit [facility] Hot flashes [address] [facility] . [place] [id number] Social History Tobacco Use Types Packs/Day Years Used Date Smoking Tobacco: Never Assessed Sex Assigned at Date Recorded Not on file documented as of this encounter Plan of Treatment Upcoming Encounters Date Type Specialty Care Team Description 06/15/2022 Appointment Orthopedics Vanna Ulloa MD [address] [place], [place] [address] (Wo rk) documented as of this encounter Procedures Procedure Name Priority Date/Time Associated Diagnosis Comme nts TSH AND FREE T4 Routine 02/19/2014 12:33 PM Hot flashes Resul ts for this (FRT4 IF TSH CDT procedure are i n ABNORM) the results section. documented in this encounter Results TSH AND FREE T4 (FRT4 IF TSH ABNORM) (02/19/2014 12:33 PM CDT) P athologist Signature Thyroid 2.54 0.20 - HP CONVERSION Stimulating 4.50 Hormone Specimen Anatomical Collection Method Collection Time Receive d Time (Source) Location / / Volume Laterality 02/19/2014 12:33 02/19/2014 6:45 PM CDT PM CDT Manan Ahumada MD LAB_1 Performing Organization Address City/State/ZIP Code Phon e Number HP CONVERSION documented in this encounter Visit Diagnoses Diagnosis Hot flashes Symptomatic menopausal or female climact [place] states documented in this encounter Care Teams Poem Writer Relationship Specialty Start Date End Date Vangie Sam PA-C PCP - General 05/04/13 04/14/14 [address] [facility] [place] [address] documented as of this encounter
--- OUTSIDE RECORDS SUMMARY | 2022-04-22 14:04 | XMS_ITS | Encounter Summary ---
:1965 Author Organization [facility] Address [address] [place] [address] Care Team Providers Name Role Phone Antoinette Leal APRN, CNP Primary Care Provider [phone] Encounter Details Date Type Department Care Team Description 2014 Notes/Orders [facility] Antoinette Leal APRN, [address] [place] [address] [facility] [facility] [phone] [place], [place] [address] (Wo rk) Social History Tobacco Use Types Packs/Day Years Used Date Smoking Tobacco: Never Assessed Sex Assigned at Date Recorded Not on file documented as of this encounter Progress Notes Chelsea Pacheco LPN - 2014 4:55 PM CDT Patient has been contacted and asked to schedule a Diabetes follow-up 3 times and has not done so. Please advise next steps. Antoinette Leal APRN, CNP - 2014 4:55 PM CDT Another phone call was made for Liz at her home number. We have sent her multiple messages via letter, phone, and [employer]. Advised also to please call and let us know if she is getting her DM care elsewhere. documented in this encounter Plan of Treatment Upcoming Encounters Date Type Specialty Care Team Description 06/15/2022 Appointment Orthopedics Vanna Ulloa MD [address] [facility] [place] [address] (Wo rk) documented as of this encounter Visit Diagnoses Not on filedocumented in this encounter Care Teams Laborer Cutting Tool Relationship Specialty Start Date End Date Antoinette Leal APRN, MAGED PCP - General 04/15/14 01/09/17 1415 [facility] [place] [id number] documented as of this encounter
--- OUTSIDE RECORDS SUMMARY | 2022-04-22 14:04 | XMS_ITS | Encounter Summary ---
:1965 Author Organization [facility] Address [address] [place] [address] Care Team Providers Name Role Phone Ziaalberto Vangie Quezada PA-C Primary Care Provider [phone] Encounter Details Date Type Department Care Team Description 12/03/2013 Imaging [facility] Left foot pain [address] [facility] [place] [address] Social History Tobacco Use Types Packs/Day Years Used Date Smoking Tobacco: Never Assessed Sex Assigned at Date Recorded Not on file documented as of this encounter Plan of Treatment Upcoming Encounters Date Type Specialty Care Team Description 06/15/2022 Appointment Orthopedics Vanna Ulloa MD [address] [place] [address] (Wo rk) documented as of this encounter Procedures Procedure Name Priority Date/Time Associated Diagnosis Comme nts XR FOOT 3+ Routine 12/03/2013 5:23 PM Left foot pain Results for this VIEWS/ANKLE 2 VIEWS CDT procedur e are in SERIES LT the results section. documented in this encounter Results XR Foot/Ankle Series Lt (12/03/2013 5:23 PM CDT) Anatomical Region Laterality Modality Lower Extremity, Foot, Ankle Other Specimen (Source) Anatomical Location Collection Method / Collectio n Time Received Time / Laterality Volume Narrative 12/03/2013 5:50 PM CDT COMPARISON: ??None. FINDINGS: ??There is a fracture, possibl y comminuted, off the distal fibular tip, with moderate overlying swelling. Left ankle joint appears intact. No obvious fracture in the left foot. Procedure Note Tristen Sanchez MD - 11/02/2015Formatti ng of this note might be different from the original. COMPARISON: None. FINDINGS: There is a fracture, possibly comminuted, off the distal fibular tip, with moderate overlying swelling. Left ankle joint appears intact. No obvious fracture in the left foot. Antoinette Leal TELEVISION JOURNALIST, PHARMACY INFORMATICS SPECIALIST RAD GD documented in this encounter Visit Diagnoses Diagnosis Left foot pain Pain in limb documented in this encounter Care Teams Accounts Adjustable Clerk Relationship Specialty Start Date End Date Vangie Sam PA-C PCP - General 05/04/13 04/14/14 1415 [place] [address] documented as of this encounter
--- OUTSIDE RECORDS SUMMARY | 2022-04-22 14:04 | XMS_ITS | Encounter Summary ---
:1965 Author Organization [facility] Address [address] [place] [address] Care Team Providers Name Role Phone Vangie Sam PA-C Primary Care Provider Reason for Visit Reason Comments Diabetes Encounter Details Date Type Department Care Team Description 04/08/2014 [facility]ie Sam, Diabetes [address] [place] [address] [facility] [phone] [place], [place] [address] (Wo rk) Social History Tobacco Use Types Packs/Day Years Used Date Smoking Tobacco: Never Assessed Sex Assigned at Date Recorded Not on file documented as of this encounter Nursing Notes Vangie Sam PA-C - 04/08/2014 2:40 PM CST left message encouraging patient to come in for appointment. ELLER ENGINEER Latonya Magallanes LPN - 04/08/2014 2:34 PM CST Pt has not made appointment after receiving 3rd letter. PCP to call pt and see if pt will make an appointment for DM recheck. ELLER ENGINEER documented in this encounter Plan of Treatment Upcoming Encounters Date Type Specialty Care Team Description 06/15/2022 Appointment Orthopedics Vanna Ulloa MD [address] [facility] [place] [id number] (Wo rk) documented as of this encounter Visit Diagnoses Not on filedocumented in this encounter Care Teams Biodiesel Production Associate Relationship Specialty Start Date End Date Vangie Sam PA-C PCP - General 05/04/13 04/14/14 1415 [facility] [place] [address] documented as of this encounter
--- OUTSIDE RECORDS SUMMARY | 2022-04-22 14:04 | XMS_ITS | Encounter Summary ---
:1965 Author Organization [facility] Address [address] [place] [address] Care Team Providers Name Role Phone Antoinette Leal APRN, DRAWER IN STITCH BONDING MACHINE Primary Care Provider Encounter Details Date Type Department Care Team Description 05/10/2014 Imaging [facility] Cough 1415 [facility] . [place], [place] [address] Social History Tobacco Use Types Packs/Day Years Used Date Smoking Tobacco: Never Assessed Sex Assigned at Date Recorded Not on file documented as of this encounter Plan of Treatment Upcoming Encounters Date Type Specialty Care Team Description 06/15/2022 Appointment Orthopedics Vanna Ulloa MD [address] [place], [place] [id number] (Wo rk) documented as of this encounter Procedures Procedure Name Priority Date/Time Associated Diagnosis Comme nts XR CHEST 2 VIEWS Routine 05/10/2014 11:15 AM Cough Resu lts for this OPERATIONS SUPPORT MANAGER procedure are i n the results section. documented in this encounter Results XR Chest 2 Views (05/10/2014 11:15 AM OPERATIONS SUPPORT MANAGER) Anatomical Region Laterality Modality Chest, Lung Other Specimen (Source) Anatomical Location Collection Method / Collectio n Time Received Time / Laterality Volume Narrative 05/10/2014 11:23 AM OPERATIONS SUPPORT MANAGER COMPARISON: ??None. FINDINGS: ??Two views were obtained. ??T he lungs and costophrenic angles are clear. ??Heart size and pulmonary vascularity are within normal limits. ??There is no evidence of pneumothorax or pleural effusion. Bony thorax is unremarkable. Procedure Note Darshan Vargas MD - 11/02/2015Formatti ng of this note might be different from the original. COMPARISON: None. FINDINGS: Two views were obtained. The l ungs and costophrenic angles are clear. Heart size and pulmonary vascularity are within normal limits. There is no evidence of pneumothorax or pleural effusion. Bony thorax is unremarkable. Antoinette Leal APRN, CNP RAD GD documented in this encounter Visit Diagnoses Diagnosis Cough documented in this encounter Care Teams Logistical Engineer Relationship Specialty Start Date End Date Antoinette Leal APRN, DRAWER IN STITCH BONDING MACHINE PCP - General 04/15/14 01/09/17 1415 [place] [address] documented as of this encounter
--- OUTSIDE RECORDS SUMMARY | 2022-04-22 14:04 | XMS_ITS | Encounter Summary ---
:1965 Author Organization [facility] Address [address] [place] [address] Care Team Providers Name Role Phone Antoinette Leal APRN, CNP Primary Care Provider [phone] Encounter Details Date Type Department Care Team Description 09/05/2014 [facility]al APRN, [address] [facility] [place] [address] 1415 [facility] [phone] [place], [place] [address] (Wo rk) Social History Tobacco Use Types Packs/Day Years Used Date Smoking Tobacco: Never Assessed Sex Assigned at Date Recorded Not on file documented as of this encounter Plan of Treatment Upcoming Encounters Date Type Specialty Care Team Description 06/15/2022 Appointment Orthopedics Vanna Ulloa MD [address] [place] [address] (Wo rk) documented as of this encounter Visit Diagnoses Not on filedocumented in this encounter Care Teams Locomotive Driver Relationship Specialty Start Date End Date Antoinette Leal APRN, MAGED PCP - General 04/15/14 01/09/17 1415 [facility] [place], [place] [id number] documented as of this encounter
--- OUTSIDE RECORDS SUMMARY | 2022-04-22 14:04 | XMS_ITS | Encounter Summary ---
:1965 Author Organization [facility] Address [address] [place] [address] Care Team Providers Name Role Phone Antoinette Leal APRN, CNP Primary Care Provider Reason for Referral Specialty Diagnoses / Procedures Referred By Contact Refer red To Contact Antoinette Leal APR N, CNP [address] [facility] [place] [address] Referral ID Status Reason Start Date Expiration Date Visits Requ ested Visits Authorized HOUSE SHIFT SUPERVISOR Reason for Visit Reason Comments Diabetes Vaginal Itching Encounter Details Date Type Department Care Team Description 04/17/2014 Office Visit Antoinette Daugherty, Diabetes type 2, uncontrolled (Primary Dx); Medicine MAGED SHORE Other and unspecified hyperlipidemia; [address] 14[address] [facility] Unspecified essential hypert ension; [place] [address] Ave Vaginal itching; [phone] [place], [place] [address] Yeast vaginitis; [phone] Inadequate comm unity resources; (Work) Obesity Social History Tobacco Use Types Packs/Day Years Used Date Smoking Tobacco: Never Assessed Sex Assigned at Date Recorded Not on file documented as of this encounter Last Filed Vital Signs Vital Sign Reading Time Taken Comments Blood Pressure 134/86 04/17/2014 1:05 PM WAREHOUSE SHIFT SUPERVISOR Pulse 90 04/17/2014 1:05 PM WAREHOUSE SHIFT SUPERVISOR Temperature - - Respiratory Rate - - Oxygen Saturation - - Inhaled Oxygen Concentration - - Weight 112.5 kg (248 lb) 04/17/2014 1:05 PM WAREHOUSE SHIFT SUPERVISOR Height 168.9 cm (5' 6.5) 04/17/2014 1:05 PM WAREHOUSE SHIFT SUPERVISOR Body Mass Index 39.43 04/17/2014 1:05 PM WAREHOUSE SHIFT SUPERVISOR documented in this encounter Progress Notes Mel, Antoinette Serrano, PORCELAIN ENAMEL INSTALLER, JUMPBASTING CANVAS BASTER - 04/18/2014 8:39 AM CST Subjective: Chief Complaint Patient presents with ??? Diabetes ??? Vaginal Itching Liz Phelps is a 48 y.o. female who presents for two concerns: 1. DM II check. She has not been seen for over one year. Last A1C in 2012 was 8.8. Hx of hypertension, controlled on lisinopril 20 mg daily. She takes a daily baby aspirin. She is not yet on a statin. No neuropathy symptoms. No polydipsia/polyuria. She does check her blood sugars daily but did not bring her logs. States a usual fasting reading is 160. She is currently on metformin XR 500 BID andglipizide XL 5 mg daily. States it's difficult financially for her to fill her prescriptions. 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 She admits she does not exercise and does not follow a low carb diet. BMI is 39. No hypoglycemia episodes. No hx of cardiovascular disease or kidney disease. She did have an A1C and cholesterol panel drawn prior to her appt today. 2. Vaginal itching for the past month. She has noticed a white discharge, but states this doesn't seem like a yeast infection to her. She has used OTC antifungal cream without relief. No pelvic pain. No concern for STD's. No fevers. No dysuria. Medical History Review: Patient's medications, allergies, past medical, surgical and problem lists along with social and family histories were updated, reviewed and reconciled as needed in the EMR. Review of Systems Pertinent ROS as listed in HPI. Objective: Filed Vitals: 04/17/14 1305 BP: 134/86 Pulse: 90 Height: 5' 6.5 (1.689 m) Weight: 248 lb (112.492 kg) GEN: Appears well, no acute distress. HEENT: AT/NC, conjunctiva clear, PERRLA, auricles in alignment, TMs pearly cohen. Sinus nontender. Neck is supple, no lymphadenopathy or masses, No Thyromegaly. Pharynx clear. CHEST: Lungs are clear to auscultation bilaterally, no crackles or wheezes, good air exchange. CVS: RRR, no murmurs, strong heart sounds and pulses, no JVD, no carotid bruits. ABD: Normoactive bowel sounds. Soft, nontender, no masses, no organomegaly. No rebound or guarding. : Labia appear inflamed and irritated, no lesions. Vagina is pink with moderate white vaginal discharge. Cervix is clear, non-friable. Wet prep done. EXT: Warm, well perfused, no edema SKIN: No worrisome lesions. No rash. NEURO: Grossly non focal. DM foot exam is normal, monofilament testing is in tact. Labs: Wet prep: Positive for yeast. Assessment: Diagnosis (ICD9) and Associated Orders ICD-9-CM 1. Diabetes type 2, uncontrolled (HCC) 250.02 Microalbumin Urine Random (UMAR) blood glucose (ONE TOUCH ULTRA) test strip glipiZIDE (GLUCOTROL XL) 5 mg 24 hr tablet metFORMIN (GLUCOPHAGE-XR) 500 mg XR 24 hour tablet Hemoglobin A1C Glycosylated 2. Hyperlipidemia 272.4 atorvastatin (LIPITOR) 20 mg tablet 3. Hypertension 401.9 Creatinine Electrolytes (NA, K, CL, Bicarb) lisinopril (PRINIVIL, ZESTRIL) 20 mg tablet 4. Vaginal itching 698.1 Wet Prep 5. Yeast vaginitis 112.1 fluconazole (DIFLUCAN) 150 mg tablet clotrimazole (GYNE-LOTRIMIN) 1 % vaginal cream 6. Inadequate community resources V60.2 [facility] Care Coordination Consult (AMB) 7. Obesity (ACG) 278.00 Plan: 1. Her A1C is pending. Her fasting blood sugars are not to goal. Will increase her metformin XR to 2000 mg daily. We may need to increase her glipizide as well, depending on her A1C results. Encouragedher to try to establish an exercise regimen and work on her diet to improve her blood sugars. I did refill her metformin and glipizide for three months. I emphasized that she needs to be seen every three months for her DM II. I did also provide an [facility] referral to see if we can help get her some additional resources for prescriptions. 2. She does have a hx of hyperlipidemia and is not yet on a statin. I am going to start her on lipitor and we reviewed this medication profile. Lipid panel is pending. 3. Will add on creatinine and electrolytes to her labs. Refilled lisinopril. BP is controlled. Again, encouraged better diet and exercise as well as weight loss. 4. Wet prep is positive for yeast. Will treat with diflucan and clotrimazole cream as prescribed. RTC if symptoms worsen or do not gradually improve. HOUSE SHIFT SUPERVISOR documented in this encounter Plan of Treatment Upcoming Encounters Date Type Specialty Care Team Description 06/15/2022 Appointment Orthopedics Vanna Ulloa MD [address] [place], [place] [phone] (Wo rk) documented as of this encounter Procedures Procedure Name Priority Date/Time Associated Diagnosis Comme nts WET PREP STAT 04/17/2014 1:24 PM Vaginal itching Result s for this WAREHOUSE SHIFT SUPERVISOR procedure are i n the results section . documented in this encounter Results (ABNORMAL) WET PREP (04/17/2014 1:24 PM WAREHOUSE SHIFT SUPERVISOR) [facility] Method Time Signature WETPR White Moderate HP CONVERSION Blood Cells WETPR Many HP CONVERSION Epithelial Cells WETPR Yeast Moderate (A) HP CONVERSION WETPR None Seen HP CONVERSION Trichomonas WETPR Clue None Seen HP CONVERSION Cells Wet Prep Source Cervix/Vagin HP CONVERSI ON al: Specimen Anatomical Collection Method Collection Time Receive d Time (Source) Location / / Volume Laterality 04/17/2014 1:24 PM 4 1:39 WAREHOUSE SHIFT SUPERVISOR PM WAREHOUSE SHIFT SUPERVISOR Narrative HP CONVERSION - 04/17/2014 1:47 PM WAREHOUSE SHIFT SUPERVISOR Performed at [facility], [address] [place] [id number] Antoinette Leal PORCELAIN ENAMEL INSTALLER, JUMPBASTING CANVAS BASTER LAB_1 Performing Organization Address City/State/ZIP Code Phon e Number HP CONVERSION documented in this encounter Visit Diagnoses Diagnosis Diabetes type 2, uncontrolled - Primary Type II or unspecified type diabetes amy litus without mention of complication, uncontrolled Other and unspecified hyperlipidemia (HR C) Other and unspecified hyperlipidemia Unspecified essential hypertension (HRC) Unspecified essential hypertension Vaginal itching Pruritus of genital organs Yeast vaginitis Candidiasis of vulva and vagina Inadequate community resources Obesity (HRC) Obesity, unspecified documented in this encounter Care Teams Mussel Farmer Relationship Specialty Start Date End Date Antoinette Leal, PORCELAIN ENAMEL INSTALLER, JUMPBASTING CANVAS BASTER PCP - General 04/15/14 01/09/17 1415 [facility] [place] [address] documented as of this encounter
--- OUTSIDE RECORDS SUMMARY | 2022-04-22 14:04 | XMS_ITS | Encounter Summary ---
:1965 Author Organization [facility] Address [address] [place] [address] Care Team Providers Name Role Phone Antoinette Leal APRN, CNP Primary Care Provider [phone] Reason for Visit Reason Comments Cough Encounter Details Date Type Department Care Team Description 05/10/2014 Office Visit Antoinette Daugherty, Upper re spiratory infection (Primary Dx); Medicine SILVIANO, MAGED Cough [address] [place] [address] Ave [phone] [place], [place] [address] Social History Tobacco Use Types Packs/Day Years Used Date Smoking Tobacco: Never Assessed Sex Assigned at Date Recorded Not on file documented as of this encounter Last Filed Vital Signs Vital Sign Reading Time Taken Comments Blood Pressure 128/72 05/10/2014 10:54 AM FACE AND FILL PACKER Pulse 97 05/10/2014 10:54 AM FACE AND FILL PACKER Temperature - - Respiratory Rate - - Oxygen Saturation - - Inhaled Oxygen Concentration - - Weight 111.1 kg (244 lb 14.4 oz) 05/10/2014 10:54 AM FACE AND FILL PACKER Height - - Body Mass Index 38.94 04/17/2014 1:05 PM FACE AND FILL PACKER documented in this encounter Progress Notes Antoinette Leal APRN, CNP - 05/10/2014 11:51 AM CST Subjective: Chief Complaint Patient presents with ??? Cough Liz Phelps is a 48 y.o. female who presents for evaluation of cough, sinus congestion x 10 days. No fevers. Cough is productive, phlegm is thick. No sore throat or otalgia. She has had some body aches. No hx of asthma but she has had some wheezing. OTC products: OTC cough syrup without relief. Sick contacts: several sick contacts within her family recently. She has had her flu shot. Hx of uncontrolled DM II. Nonsmoker. Medical History Review: Patient's medications, allergies, past medical, surgical and problem lists along with social and family histories were updated, reviewed and reconciled as needed in EMR. Review of Systems Pertinent items are listed in HPI. Objective: BP 128/72 Pulse 97 Wt 244 lb 14.4 oz (111.086 kg) BMI 38.94 kg/m2 GEN: Appears fatigued, no acute distress. HEENT: AT/NC, conjunctiva clear, PERRLA, auricles in alignment, TMs pearly cohen. Sinus nontender. Neck is supple, no lymphadenopathy or masses, No Thyromegaly. Pharynx clear. CHEST: Lungs have wheezes throughout and rhonchi in bilateral bases. CVS: RRR, no murmurs, strong heart sounds and pulses, no JVD, no carotid bruits. SKIN: No rash. CXR: Negative for acute process. Assessment: Diagnosis (ICD9) and Associated Orders ICD-9-CM 1. Upper respiratory infection 465.9 doxycycline (VIBRAMYCIN) 100 mg capsule predniSONE (DELTASONE) 20 mg tablet 2. Cough 786.2 XR Chest * PA and Left Lateral (Standard) albuterol HFA (VENTOLIN HFA) 90 mcg/actuation inhaler Plan: 1. CXR is negative, but she has wheezing and rhonchi on exam and symptoms have been present x10 dayswithout improvement. Will treat with doxycycline as prescribed, also prednisone burst and albuterol inhaler. She understands blood sugars will increase transiently with the prednisone. Rest, increase fluids, OTC decongestant and analgesic as needed. RTC if symptoms worsen or do not gradually improve over the next few days. AND FILL PACKER documented in this encounter Plan of Treatment Upcoming Encounters Date Type Specialty Care Team Description 06/15/2022 Appointment Orthopedics Vanna Ulloa MD [address] [facility] [place] [address] (Wo rk) documented as of this encounter Visit Diagnoses Diagnosis Upper respiratory infection - Primary Acute upper respiratory infections of un specified site Cough documented in this encounter Care Teams Financial Reporting Consultant Relationship Specialty Start Date End Date Antoinette Leal, FINISHER SPECIAL STOCKS, ANIMAL SCIENTIST PCP - General 04/15/14 01/09/17 1415 [place] [address] documented as of this encounter
--- OUTSIDE RECORDS SUMMARY | 2022-04-22 14:04 | XMS_ITS | Encounter Summary ---
:1965 Author Organization [facility] Address [address] [place] [address] Care Team Providers Name Role Phone Antoinette Leal APRN, DIRECTOR OF ENVIRONMENTAL SERVICES Primary Care Provider Encounter Details Date Type Department Care Team Description 12/02/2014 Lab Visit [place] [facility] Diabetes type 2, [address] [place] [address] Social History Tobacco Use Types Packs/Day Years Used Date Smoking Tobacco: Never Assessed Sex Assigned at Date Recorded Not on file documented as of this encounter Progress Notes William Conteh MBBS - 12/02/2014 4:23 PM CDT Quick Note: Results discussed with patient during visit. Makayla Vázquez LPN - 12/02/2014 3:51 PM CDT Quick Note: per distribution list documented in this encounter Miscellaneous Notes Miscellaneous - 06/24/2016 5:46 AM CSTNotes Recorded by YOHAN Dalton on 12/02/2014 at 4:23 PMResults discussed with patient during visit.------ Notes Recorded by Makayla Vázquez LPN on 12/02/2014 at 3:51 PMper distribution list CAL EFFECTS LINE UP PERSON documented in this encounter Plan of Treatment Upcoming Encounters Date Type Specialty Care Team Description 06/15/2022 Appointment Orthopedics Vanna Ulloa MD [address] [facility] [id number] (Wo rk) documented as of this encounter Procedures Procedure Name Priority Date/Time Associated Diagnosis Comme nts EXTRA SERUM Routine 12/02/2014 9:51 AM Results f or this SEPARATOR TUBE CDT procedure are in (YELLOW) the results section. HEMOGLOBIN A1C, Routine 12/02/2014 9:51 AM Diabetes type 2, Re sults for this RAPID CDT uncontrolled (HRC) procedure are in the results section. documented in this encounter Results EXTRA SERUM SEPARATOR TUBE (YELLOW) (12/02/2014 9:51 AM CDT) athologist Signature Extra SST Top Drawn HP CONVERSION Drawn Specimen Anatomical Collection Method Collection Time Receive d Time (Source) Location / / Volume Laterality 12/02/2014 9:51 AM 5 9:51 CDT AM CDT Narrative HP CONVERSION - 12/02/2014 9:45 AM CDT Performed at [facility], [address] [place] [address] Antoinette Leal APRN, CNP LAB_1 Performing Organization Address City/State/ZIP Code Phon e Number HP CONVERSION (ABNORMAL) HEMOGLOBIN A1C, RAPID (12/02/2014 9:51 AM CDT) [facility] Method Time Signature Hemoglobin A1C 10.9 (H) 4.0 - 5.6 HP CONVERSION Rapid % Comment: The Rapid A1c test is designed for monit oring patients with an established diagnosis of diabetes amy litus. ??The rapid method is not suitable to establish the intial diagnosis of diabetes melitus. Specimen Anatomical Collection Method Collection Time Receive d Time (Source) Location / / Volume Laterality 12/02/2014 9:51 AM 5 9:51 CDT AM CDT Narrative HP CONVERSION - 12/02/2014 10:16 AM CDT Performed at [facility], [address] [place] [address] Transcriptions 06/24/2016 5:46 AM CSTNotes Recorded by YOHAN Dalton on 12/02/2014 at 4:23 PMResults discussed with patient during visit.------Notes Recorded by Makayla Vázquez LPN on 12/02/2014 at 3:51 PMper distribution list Antoinette Leal APRN, MAGED LAB_1 Performing Organization Address City/State/ZIP Code Phon e Number HP CONVERSION documented in this encounter Visit Diagnoses Diagnosis Diabetes type 2, uncontrolled Type II or unspecified type diabetes amy litus without mention of complication, uncontrolled documented in this encounter Care Teams Pumper Gauger Relationship Specialty Start Date End Date Antoinette Leal APRN, DIRECTOR OF ENVIRONMENTAL SERVICES PCP - General 04/15/14 01/09/17 [address] [place] [address] documented as of this encounter
--- OUTSIDE RECORDS SUMMARY | 2022-04-22 14:04 | XMS_ITS | Encounter Summary ---
:1965 Author Organization [facility] Address [address] [place] [address] Care Team Providers Name Role Phone Vangie Sam Damien BROWNING Primary Care Provider [phone] Reason for Referral Specialty Diagnoses / Procedures Referred By Contact Refer red To Contact Antoinette Leal APR N, CNP [address] [place] [address] Referral ID Status Reason Start Date Expiration Date Visits Requ ested Visits Authorized Reason for Visit Reason Comments INJURY, ANKLE Encounter Details Date Type Department Care Team Description 12/11/2013 Surgical Consult [place] [address] left fibular Orthopedics MD fracture [address] [place] [address] [facility] [place] [address] [place], [place] [phone] Social History Tobacco Use Types Packs/Day Years Used Date Smoking Tobacco: Never Assessed Sex Assigned at Date Recorded Not on file documented as of this encounter Progress Notes Farhat Garrett MD - 12/17/2013 1:32 PM CDT Progress Notes signed by Farhat Garrett MD at 12/20/13 0191 Author: Farhat Garrett MD Service: (none) Author Type: Physician Filed: 12/20/13 1336 Note Time: 12/17/132252 Status: Signed Coin Rolling Machine Operator: Farhat Garrett MD (Physician) NAME: MARCELO BECK MR#: [id number] CSN: [id number] AUTHENTICATING CLINICIAN: Farhat Garrett MD CONFIRM #: [id number] LOC: 3211 CLINIC PROGRESS NOTE DATE OF VISIT: 12/11/2013 : 1965 CHIEF COMPLAINT: Left ankle injury. HISTORY: Marcelo is a 48-year-old female, who 2 weeks prior sustained a twisting injury to her left ankle when she tripped in her yard. She has been in a boot. She reports adequate pain control. OUTPATIENT MEDICATIONS: Reviewed, updated, and reconciled in Epic. MUSCULOSKELETAL REVIEW OF SYSTEMS: Reviewed with the patient and is negative with the exception of her current left ankle complaints. PHYSICAL EXAM: Boot was removed. Skin is intact. Alignment to the ankle appears satisfactory. There is moderate swelling. There is moderate tenderness laterally. Distal motor and sensory exam is intact. Pulses are intact. IMAGING STUDIES: X-rays of the ankle from 12/03/2013 are reviewed and show a small fracture in the distal fibula. A small Randhawa A-type fracture. ASSESSMENT: Left ankle Randhawa A-type lateral malleolus fracture. PLAN: Discussed with the patient that the fracture fragment is small. This essentially represents a variant of ankle sprain with a small avulsion fracture of the tip of the lateral malleolus. Continued use of immobilization and weightbearing as tolerated are warranted. Return for a recheck in 3-4 weeks if she is not improving. I did instruct her that she could wean and discontinue immobilization over the next 4 weeks, and advance activities as tolerated, and if the swelling comes down and pain is minimal,she does not necessarily work need to return for followup, particularly if there is no recurrent instability-type symptoms. A total of 20 minutes was spent in direct brwg-ie-eots consultation with the patient. DFL:MEDQ C: CONFIRM #: [id number] documented in this encounter Plan of Treatment Upcoming Encounters Date Type Specialty Care Team Description 06/15/2022 Appointment Orthopedics Vanna Ulloa MD [address] [facility] [place] [address] (Wo rk) Scheduled Referrals Name Type Priority Associated Diagnoses Order S chedule Orthopaedic Consult Referral Routine Closed left fibular O rdered: 12/11/2013, Adult/Peds fracture Expires: 2013 documented as of this encounter Visit Diagnoses Diagnosis Closed left fibular fracture Closed fracture of unspecified part of f ibula documented in this encounter Care Teams Squeegeer And Former Relationship Specialty Start Date End Date Vangie Sam PA-C PCP - General 05/04/13 04/14/14 [address] [place] [address] documented as of this encounter
--- OUTSIDE RECORDS SUMMARY | 2022-04-22 14:04 | XMS_ITS | Encounter Summary ---
:1965 Author Organization [facility] Address [address] [place] [address] Care Team Providers Name Role Phone Antoinette Leal APRN, CNP Primary Care Provider [phone] Encounter Details Date Type Department Care Team Description 06/26/2014 [facility]in[facility] Leal APRN, [address] [facility] ELECTRONIC [place] [address] 14[address] [facility] [phone] [place], [place] [address] (Wo rk) Social History Tobacco Use Types Packs/Day Years Used Date Smoking Tobacco: Never Assessed Sex Assigned at Date Recorded Not on file documented as of this encounter Plan of Treatment Upcoming Encounters Date Type Specialty Care Team Description 06/15/2022 Appointment Orthopedics Vanna Ulloa MD [address] [place] [address] (Wo rk) documented as of this encounter Visit Diagnoses Not on filedocumented in this encounter Care Teams Executive Officer Relationship Specialty Start Date End Date Antoinette Leal APRN, MAGED PCP - General 04/15/14 01/09/[address] [facility] [place], [place] [address] documented as of this encounter
--- OUTSIDE RECORDS SUMMARY | 2022-04-22 14:04 | XMS_ITS | Encounter Summary ---
:[address] [facility] Address [address] [place] [address] Care Team Providers Name Role Phone Antoinette Leal APRN, MAGED Primary Care Provider Reason for Visit Reason Comments Injection Encounter Details Date Type Department Care Team Description 11/26/2014 Nursing Visit [place] [facility] Dysmenorr [facility]a (Primary Medicine Dx) [address] [facility] [place] [address] Social History Tobacco Use Types Packs/Day Years Used Date Smoking Tobacco: Never Assessed Sex Assigned at Date Recorded Not on file documented as of this encounter Progress Notes Julieta Jose LPN - 11/26/2014 10:27 AM CDT Injection given per standing order. DEPO; next dose due 02/11/15 - 02/25/15. Patient informed she must have phys/pap prior to next dose; she understood. documented in this encounter Plan of Treatment Upcoming Encounters Date Type Specialty Care Team Description 06/15/2022 Appointment Orthopedics Vanna Ulloa MD [address] [facility] [place] [address] (Wo rk) documented as of this encounter Visit Diagnoses Diagnosis Dysmenorrhea - Primary documented in this encounter Care Teams Detacher Relationship Specialty Start Date End Date Thiner, Antoinette N, LEATHER STRETCHER, FAT PURIFICATION WORKER PCP - General 04/15/14 01/09/17 14[address] [facility] [place] [address] documented as of this encounter
--- OUTSIDE RECORDS SUMMARY | 2022-04-22 14:04 | XMS_ITS | Encounter Summary ---
:1965 Author Organization [facility] Address [address] [place] [address] Care Team Providers Name Role Phone Flaco Vagnie Quezada PA-C Primary Care Provider [phone] Encounter Details Date Type Department Care Team Description 03/15/2014 Imaging [place] Mammograp hy Other screening mammogram [address] [place] [address] Social History Tobacco Use Types Packs/Day Years Used Date Smoking Tobacco: Never Assessed Sex Assigned at Date Recorded Not on file documented as of this encounter Plan of Treatment Upcoming Encounters Date Type Specialty Care Team Description 06/15/2022 Appointment Orthopedics Vanna Ulloa MD [address] [place], [place] [address] (Wo rk) documented as of this encounter Procedures Procedure Name Priority Date/Time Associated Diagnosis Comme nts MM MAMMOGRAM Routine 03/15/2014 12:32 PM Other screening Resul ts for this SCREENING BILAT W CDT mammogram procedure are in CAD the results section. documented in this encounter Results MM Mammogram Screening Bilat W CAD (03/15/2014 12:32 PM CDT) Anatomical Region Laterality Modality Breast Bilateral Mammography Specimen (Source) Anatomical Location Collection Method / Collectio n Time Received Time / Laterality Volume Impressions 03/15/2014 1:20 PM CDT : BIRADS 2 Benign Finding(s) (overall) Follow Up Mammogram in 1 year - Breaa parker The results and recommendations of this examination will be communicated to the patient by the [facility] and we will attempt to schedule any recommended imaging follow up with the patient. Narrative 03/15/2014 1:20 PM CDT Compared to: 01/30/2007 MM MAMMOGRAM SCR EENING W CAD, 05/29/2003 MM MAMMOGRAM SCREENING W CAD FINDINGS: Bilateral screening mammogram was performed. There are scattered fibroglandular densities (25-50%) in the breasts. There are benign appearing calcification s. No significant mass, calcifications or o ther abnormalities are seen in either breast. Procedure Note Bárbara Grant MD - 01/08/2016Formattin g of this note might be different from the original. Compared to: 01/30/2007 MM MAMMOGRAM SCR EENING W CAD, 05/29/2003 MM MAMMOGRAM SCREENING W CAD FINDINGS: Bilateral screening mammogram was performed. There are scattered fibroglandular densities (25-50%) in the breasts. There are benign appearing calcification s. No significant mass, calcifications or o ther abnormalities are seen in either breast. IMPRESSION : BIRADS 2 Benign Finding(s) (overall) Follow Up Mammogram in 1 year - Carolina canales The results and recommendations of this examination will be communicated to the patient by the [facility] and we will attempt to schedule any recommended imaging follow up with the patient. Manan Ahumada MD RAD TERESA documented in this encounter Visit Diagnoses Diagnosis Other screening mammogram documented in this encounter Care Teams Towel Sewer Relationship Specialty Start Date End Date Vangie Sam PA-C PCP - General 05/04/13 04/14/[address] [place] [address] [place] [address] documented as of this encounter
--- OUTSIDE RECORDS SUMMARY | 2022-04-22 14:04 | XMS_ITS | Encounter Summary ---
:1965 Author Organization [facility] Address [address] [place] [address] Care Team Providers Name Role Phone Antoinette Leal APRN, MAGED Primary Care Provider Reason for Visit Reason Comments Diabetes Encounter Details Date Type Department Care Team Description 07/01/2014 Notes/Orders [facility] Antoinette Leal APRN, [address] FLEXOGR[place]IC [place] [address] [address] [facility] [phone] [place], [place] [address] (Wo rk) Social History Tobacco Use Types Packs/Day Years Used Date Smoking Tobacco: Never Assessed Sex Assigned at Date Recorded Not on file documented as of this encounter Miscellaneous Notes Letter - Antoinette Leal APRN, MAGED - 07/01/2014 12:00 AM CST 07/01/2014 Liz Phelps [address] [place] [address] : 1965 Dear Liz: I am contacting you with a reminder that it is time for your diabetes visit , please call [phone] to schedule your visit due in July. To prepare for this visit, it is important that you have yourlabs drawn prior to your appointment so the results are available for review at your visit. You willneed to have the following tests: Hemoglobin A1C. You do not have to fast for these labs. You will not need to give a urine specimen. These tests should be completed 30 minutes before your visit. You can schedule your lab appointment at [phone]. Please continue to take your medications as prescribed. We look forward to seeing you again. Antoinette Leal APRN, FLEXOGRAPHIC PRESS PLATE SETTER ICAL LAB ASSISTANT documented in this encounter Plan of Treatment Upcoming Encounters Date Type Specialty Care Team Description 06/15/2022 Appointment Orthopedics Vanna Ulloa MD [address] [facility] [place] [address] (Wo rk) documented as of this encounter Visit Diagnoses Not on filedocumented in this encounter Care Teams Hospital Admitting Clerk Relationship Specialty Start Date End Date Antoinette Leal APRN, FLEXOGRAPHIC PRESS PLATE SETTER PCP - General 04/15/14 01/09/17 [address] [place] [address] documented as of this encounter
--- OUTSIDE RECORDS SUMMARY | 2022-04-22 14:04 | XMS_ITS | Encounter Summary ---
:1965 Author Organization [facility] Address [address] [place] [address] Care Team Providers Name Role Phone Antoinette Leal APRN, CNP Primary Care Provider [phone] Reason for Visit Reason Comments Refill Encounter Details Date Type Department Care Team Description 04/18/2014 Refill [facility] Antoinette Leal APRN, MAGED Refill [address] [place] [address] [place] [address] [phone] (Wo rk) Social History Tobacco Use Types Packs/Day Years Used Date Smoking Tobacco: Never Assessed Sex Assigned at Date Recorded Not on file documented as of this encounter Nursing Notes Antoinette Leal APRN, CNP - 04/18/2014 12:23 PM CST Rx sent. Thanks. MARSHAL REFINERY Margret Fox - 04/18/2014 12:22 PM CST fax from [facility] - We would like to request a prescription for a new One Touch Ultra 2 meter. MARSHAL REFINERY documented in this encounter Plan of Treatment Upcoming Encounters Date Type Specialty Care Team Description 06/15/2022 Appointment Orthopedics Vanna Ulloa MD [address] [facility] [place] [phone] (Wo rk) documented as of this encounter Visit Diagnoses Diagnosis Diabetes type 2, uncontrolled - Primary Type II or unspecified type diabetes amy litus without mention of complication, uncontrolled documented in this encounter Care Teams Digital Account Supervisor Relationship Specialty Start Date End Date Antoinette Leal, INTERNAL MEDICINE NURSE, RADAR MECHANIC PCP - General 04/15/14 01/09/17 [address] [place] [address] documented as of this encounter
--- OUTSIDE RECORDS SUMMARY | 2022-04-22 14:04 | XMS_ITS | Encounter Summary ---
:1965 Author Organization [facility] Address [address] [place] [address] Care Team Providers Name Role Phone Vangie Sam PA-C Primary Care Provider Reason for Visit Reason Comments Diabetes Encounter Details Date Type Department Care Team Description 03/08/2014 Notes/Orders [place] [facility] Vangie Sam, [address] [place] [address] [facility] [phone] [place] [address] (Wo rk) Social History Tobacco Use Types Packs/Day Years Used Date Smoking Tobacco: Never Assessed Sex Assigned at Date Recorded Not on file documented as of this encounter Plan of Treatment Upcoming Encounters Date Type Specialty Care Team Description 06/15/2022 Appointment Orthopedics Vanna Ulloa MD 8[address] [place] [address] (Wo rk) documented as of this encounter Visit Diagnoses Not on filedocumented in this encounter Care Teams Mobile Lounge Driver Or Operator Relationship Specialty Start Date End Date Vangie Sam PA-C PCP - General 05/04/13 04/14/[address] [place] [address] documented as of this encounter
--- OUTSIDE RECORDS SUMMARY | 2022-04-22 14:04 | XMS_ITS | Encounter Summary ---
:1965 Author Organization [facility] Address [address] [place] [address] Care Team Providers Name Role Phone Antoinette Leal OFFICE MACHINE SERVICER APPRENTICE, DIAPER FOLDER Primary Care Provider Reason for Visit Reason Comments Vaginal Itching Encounter Details Date Type Department Care Team Description 04/15/2014 [facility] Antoinette Leal, Vaginal Itching [address] OFFICE MACHINE SERVICER APPRENTICE, [place] [address] [facility] [phone] [place], [place] [address] (Wo rk) Social History Tobacco Use Types Packs/Day Years Used Date Smoking Tobacco: Never Assessed Sex Assigned at Date Recorded Not on file documented as of this encounter Nursing Notes Jacklyn Plascencia RN - 04/15/2014 1:32 PM CST Protocol: VAGINAL [id number] Affirmative: Rash (e.g., redness, tiny bumps, sore) of genital area present > 24 hours Disposition of See in Primary Care Office within 36-48 hours suggested. pt having redness and irritation to outer vaginal area with flaky itchy skin for 1 month, notices more burning with urination and some cloudiness in toilet. Tried lotion and hemorrhoid cream without relief, Benedryl cream provides some relief. Denies abdominal pain. FEEDER Kellee Magallon - 04/15/2014 1:25 PM CST Pt experiencing vaginal itching and burning sensation for a month now. Pt is currently scheduled with PCP on 04/17/14. Requesting to speak with nurse. [phone] vm yes documented in this encounter Plan of Treatment Upcoming Encounters Date Type Specialty Care Team Description 06/15/2022 Appointment Orthopedics Vanna Ulloa MD [address] [facility] [place] [address] (Wo rk) documented as of this encounter Visit Diagnoses Not on filedocumented in this encounter Care Teams Irrigation System Operator Relationship Specialty Start Date End Date Antoinette Leal, OFFICE MACHINE SERVICER APPRENTICE, DIAPER FOLDER PCP - General 04/15/14 01/09/17 1415 [facility] [place] [address] documented as of this encounter
--- OUTSIDE RECORDS SUMMARY | 2022-04-22 14:04 | XMS_ITS | Encounter Summary ---
:1965 Author Organization Replaced by [facility] Address [address] [place] [address] Care Team Providers Name Role Phone Vangie Sam PA-C Primary Care Provider Reason for Visit Reason Comments Diabetes Encounter Details Date Type Department Care Team Description 09/28/2013 [facility] Vangie Sam, [address] [place] [address] [facility] [phone] [place] [address] (Wo rk) Social History Tobacco Use Types Packs/Day Years Used Date Smoking Tobacco: Never Assessed Sex Assigned at Date Recorded Not on file documented as of this encounter Plan of Treatment Upcoming Encounters Date Type Specialty Care Team Description 06/15/2022 Appointment Orthopedics Vanna Ulloa MD [address] [place] [address] (Wo rk) documented as of this encounter Visit Diagnoses Not on filedocumented in this encounter Care Teams Supervisor Cutting Department Relationship Specialty Start Date End Date Vangie Sam PA-C PCP - General 05/04/13 04/14/[address] [place] [address] documented as of this encounter
--- OUTSIDE RECORDS SUMMARY | 2022-04-22 14:04 | XMS_ITS | Encounter Summary ---
:1965 Author Organization [employer] Address [address] [place] [address] Care Team Providers Name Role Phone Antoinette Leal APRN, MAGED Primary Care Provider [phone] Reason for Visit Reason Comments Cough Encounter Details Date Type Department Care Team Description 05/10/2014 Telephone [facility] Antoinette Leal APRN, Cough [address] [place] [address] [phone] [place], [place] [address] (Wo rk) Social History Tobacco Use Types Packs/Day Years Used Date Smoking Tobacco: Never Assessed Sex Assigned at Date Recorded Not on file documented as of this encounter Nursing Notes Lore Clark - 05/10/2014 9:14 AM CST pt calling. she has been ill for about a week with a cough. it is worsening. coughing to the point she can't quit. she had a coughing spell just before I got on the phone with her and while I was talking to her she was still breathing heavy. chest hurts after her coughing spell. gets short of breath when she is coughing as she can't stop to get a good breath in. not SOB if not in a coughing spell. appt scheduled for today. pt aware she will be seen only for her cough and that she may have a wait to be seen. CONTROLLED MACHINE STITCHER documented in this encounter Plan of Treatment Upcoming Encounters Date Type Specialty Care Team Description 06/15/2022 Appointment Orthopedics Vanna Ulloa MD 8100 [facility] [place] [address] (Wo rk) documented as of this encounter Visit Diagnoses Not on filedocumented in this encounter Care Teams Arbor End Mainspring Former Relationship Specialty Start Date End Date Antoinette Leal, PROFESSOR OF FINE ART, BUYER RENTER PCP - General 04/15/14 01/09/17 1415 [facility] [place] [address] documented as of this encounter
--- OUTSIDE RECORDS SUMMARY | 2022-04-22 14:05 | XMS_ITS | Encounter Summary ---
:1965 Author Organization [facility] Address [address] [place] [address] Care Team Providers Name Role Phone Md GEOVANNY Garcia Primary Care Provider Encounter Details Date Type Department Care Team Description 02/18/2012 Immunization [facility] [address] [facility] [place] [address] inoculation against [phone] influenza (Prim kandice Dx) Social History Tobacco Use Types Packs/Day Years Used Date Smoking Tobacco: Never Assessed Sex Assigned at Date Recorded Not on file documented as of this encounter Plan of Treatment Upcoming Encounters Date Type Specialty Care Team Description 06/15/2022 Appointment Orthopedics Vanna Ulloa MD [address] [place] [address] (Wo rk) documented as of this encounter Visit Diagnoses Diagnosis Need for prophylactic vaccination and in oculation against influenza - Primary documented in this encounter Care Teams Pool Player Relationship Specialty Start Date End Date Md Garcia MD PCP - General 01/18/12 03/18/13 [place], [place] [address] documented as of this encounter
--- OUTSIDE RECORDS SUMMARY | 2022-04-22 14:05 | XMS_ITS | Encounter Summary ---
:1965 Author Organization [facility] Address [address] [place] [address] Care Team Providers Name Role Phone Vangie Sam PA-C Primary Care Provider [phone] Reason for Visit Reason Comments Diabetes Refill Encounter Details Date Type Department Care Team Description 05/07/2013 Office Visit Shruti Olivera Type II or unspecified type diabetes mellitus without mention of complication, not stated as uncontrolled (Primary Dx); Mary Francisco PA-C Unspecified essential hypertension; [address] [place] Other and unspecified hyperl ipidemia; [place] [address] [address] Need for influenza vaccination; [phone] [place], [place] Diabetes type 2, uncontrolled; [address] Chronic rhinitis Social History Tobacco Use Types Packs/Day Years Used Date Smoking Tobacco: Never Assessed Sex Assigned at Date Recorded Not on file documented as of this encounter Last Filed Vital Signs Vital Sign Reading Time Taken Comments Blood Pressure 134/88 05/07/2013 10:22 AM MACHINE SORTER Pulse 80 05/07/2013 10:22 AM MACHINE SORTER Temperature - - Respiratory Rate - - Oxygen Saturation - - Inhaled Oxygen Concentration - - Weight 120.2 kg (265 lb) 05/07/2013 10:22 AM MACHINE SORTER Height - - Body Mass Index 42.13 01/18/2012 1:45 PM CDT documented in this encounter Patient Instructions Patient InstructionsShruti Gonzalez V - 05/07/2013 10:41 AM CST Goals for glucoe reading values Fasting less than 120 2 Hours after a meal less than 180 before bedtime less than 140 A1C less than 8 [place] diabetes education phone number [phone] Rx given: Orders Placed This Encounter Medications ??? glipiZIDE (GLUCOTROL XL) 5 mg 24 hr tablet Sig: Take 1 tablet by mouth daily (every 24 hours). Do not cut/crush/chew Dispense: 90 tablet Refill: 3 ??? metFORMIN (GLUCOPHAGE-XR) 500 mg XR 24 hour tablet Sig: Take 1 tablet by mouth 2 times daily. Dispense: 60 tablet Refill: 12 Orders: Orders Placed This Encounter Procedures ??? Fluzone Influenza QIV (36+ mos) ??? Triglycerides ??? Glucose ??? Ambulatory referral to Ophthalmology INE SORTER documented in this encounter Progress Notes Shruti Gonzalez V - 05/07/2013 1:28 PM CST SUBJECTIVE Liz Phelps is 47 y.o. year old female here for follow-up on type 2 diabetes. Other concerns: Chief Complaint Patient presents with ??? Diabetes ??? Medication Refill Patient does not bring a glucose dairy. Fasting Glucose range: 180 - 200 In addition, states she has had random glucose as high as 250. Patient believes that glucose in general are improving but in the past she was having readings in the 350 range. The patient has been compliant with the medications. denies concerns with blured vision,increased thirst or polyuria. States that she is watching her diet. Monitors carbs and limiting sweats: yes. physical activity is not appropiate. Past Medical History: Patient Active Problem List Diagnosis ??? Hyperlipidemia ??? Gastroesophageal Reflux Disease ??? AJ Squamous Intraepith Lesion Cervix ??? Rhinitis Chronic ??? Obstructive Sleep Apnea ??? Depression Major 1episode NOS ??? DM Type2 ??? Hypertension ??? GERD (gastroesophageal reflux disease) Most recent labs from: Lab Results Component Value Date/Time Lab Glucose 213* 01/21/2012 0928 Lab Results Component Value Date/Time HGB A1C 9.3* 07/21/2012 1553 HGB A1C 9.1* 01/21/2012 0928 HGB A1C 6.4* 05/21/2009 1124 Lab Results Component Value Date/Time Cholesterol 198 07/21/2012 1553 HDL Cholesterol 33* 07/21/2012 1553 Triglycerides 342* 07/21/2012 1553 LDL Calculated 97 07/21/2012 1553 LDL Calculated 99 02/05/2009 1227 LDL Calculated 61* 02/11/2004 1159 Lab Results Component Value Date/Time Microalbumin Urine 25.0 01/21/2012 1010 Routine eye exam : is not up to date Family History: Mother with history of type 2 diabetes Paternal grandfather history of heart disease needing nitroglycerin SUPERINTENDENT LANDFILL OPERATIONS: Patient does have 3 daughters ages 28, 25 and 14 Has a daughter with Down syndrome Social History: Patient is not Employed History Substance Use Topics ??? Smoking status: Former Smoker ??? Smokeless tobacco: Never Used Comment: Quit smoking: ??? Alcohol Use: Not on file Comment: Alcoholic Drinks/day: Amount:1-2 drinks; Freq:2-4/Month ; Review of Systems: all reviewed and negative; except for the concerns above Adverse Drug Reactions: See updated and reviewed list in [facility] Medications: Reviewed. See Medication List in [facility] OBJECTIVE: BP 134/88 Pulse 80 Wt 265 lb (120.203 kg) BMI 42.14 kg/m2 Head: Normocephalic. Eyes: PERRLA, full EOM. External exams normal. Ears: Normal pinnae, canals, and TM's. Nose: Patent, without deformity. Throat: Moist mucous membranes without lesions, in mild erythema, or exudate. Postnasal drainage seen Heart: RR without murmurs, rubs, or gallops. Respiratory: Normal respiratory effort. Lungs are clear with good breath sounds. Abdomen: soft, non-tender, without masses or organomegaly Extremities: Full ROM without limitation, deformity or edema. There was no evidence of edema or gross musculoskeletal deformities ASSESSMENT: Diagnosis (ICD9) 1. DM Type2 (250.00) 2. Hypertension (401.9) 3. Hyperlipidemia (272.4) 4. Need for influenza vaccination (V04.81) 5. Diabetes type 2, uncontrolled (HCC) (250.02) 6. Rhinitis Chronic (472.0) PLAN: Review most recent A1c which is nearly at goal Okay to recheck A1c once again in 06/2013 Reviewed diet: Discussed limiting sweets and carbs and stressed on the importance of healthy food portions. Discussed goal numbers on glucose: Fasting less than 120; two hours after a meal less than 180 and before bedtime less than 140. A1C goal is less than 8. Encourage on daily physical activity,baby aspirin and being complaint with all medications. Medication Changes: Recommend increasing her Glucotrol XL to 5 mg daily Discussed hyperlipidemia and it's significance. Reviewed potential risk factors of high cholesterol and heart disease. Two brochures in regards of lowering cholesterol foods and the significance of cholesterol values were reviewed and given to the patient. Encouraged on limiting fatty meals,sweats and carbs. Recommend increasing cardiovascular physical activity 30 to 45 minutes at least 3 times per week. Weight loss was encouraged. Discussed fish oil daily. Reviewed medications such as statins to help lower cholesterol and talked about potential medication side effects such as liver function abnormalities and myalgias. Patient is not interested in medication to help triglycerides LDL is at goal Pending labs: Orders Placed This Encounter Procedures ??? Fluzone Influenza QIV (36+ mos) ??? Triglycerides ??? Glucose ??? Ambulatory referral to Ophthalmology RX given: Orders Placed This Encounter Medications ??? glipiZIDE (GLUCOTROL XL) 5 mg 24 hr tablet Sig: Take 1 tablet by mouth daily (every 24 hours). Do not cut/crush/chew Dispense: 90 tablet Refill: 3 ??? metFORMIN (GLUCOPHAGE-XR) 500 mg XR 24 hour tablet Sig: Take 1 tablet by mouth 2 times daily. Dispense: 60 tablet Refill: 12 ??? aspirin EC 81 mg EC tablet Sig: Take 1 tablet by mouth daily (every 24 hours). Dispense: 100 tablet Refill: 13 ??? fluticasone (FLONASE) 50 mcg/actuation nasal spray Sig: Place 1-2 sprays into each nostril daily (every 24 hours). Dispense: 16 g Refill: 3 ??? lisinopril (PRINIVIL, ZESTRIL) 20 mg tablet Sig: Take 1 tablet by mouth daily (every 24 hours). Dispense: 30 tablet Refill: 12 will communicate pending labs once available INE SORTER documented in this encounter Plan of Treatment Upcoming Encounters Date Type Specialty Care Team Description 06/15/2022 Appointment Orthopedics Vanna Ulloa MD [address] [facility] [place] [id number] (Wo rk) documented as of this encounter Visit Diagnoses Diagnosis Type II or unspecified type diabetes amy litus without mention of complication, not stated as uncontrolled ([facility]) - Primary Type II or unspecified type diabetes amy litus without mention of complication, not stated as uncontrolled Unspecified essential hypertension ([facility]C) Unspecified essential hypertension Other and unspecified hyperlipidemia (HR C) Other and unspecified hyperlipidemia Need for influenza vaccination Need for prophylactic vaccination and in oculation against influenza Diabetes type 2, uncontrolled Type II or unspecified type diabetes amy litus without mention of complication, uncontrolled Chronic rhinitis documented in this encounter Care Teams Assurance Specialist Relationship Specialty Start Date End Date Vangie Sam PA-C PCP - General 05/04/13 04/14/14 [address] [facility] [place] [id number] documented as of this encounter
--- OUTSIDE RECORDS SUMMARY | 2022-04-22 14:05 | XMS_ITS | Encounter Summary ---
:1965 Author Organization [email or web address] Address [address] [place] [address] Care Team Providers Name Role Phone Needs Pcp, Assignment Primary Care Provider Encounter Details Date Type Department Care Team Description 03/19/2013 Lab Visit Center Laboratory Dysuria [address] [place] [address] Social History Tobacco Use Types Packs/Day Years Used Date Smoking Tobacco: Never Assessed Sex Assigned at Date Recorded Not on file documented as of this encounter Progress Notes Vangie Sam PA-C - 03/21/2013 7:32 AM SR. STRATEGIC SOURCING MANAGER Quick Note: Reviewed urine cx, letter done, sent to staff for printing and distribution. Vangie Sam PA-C - 03/19/2013 12:26 PM SR. STRATEGIC SOURCING MANAGER Quick Note: reviewed ua/micro, discussed at visit. bactrim given. documented in this encounter Miscellaneous Notes Miscellaneous - 09/02/2016 10:17 PM CDTNotes Recorded by Vangie Sam PA-C on 03/21/2013 at 7:32 AMReviewed urine cx, letter done, sent to staff for printing and distribution. Miscellaneous - 06/25/2016 1:57 AM CSTNotes Recorded by Vangie Sam PA-C on 03/21/2013 at 7:32 AMReviewed urine cx, letter done, sent to staff for printing and distribution.------Notes Recorded by Vangie Sam PA-C on 03/19/2013 at 12:26 PMreviewed ua/micro, discussed at visit. bactrim given. . STRATEGIC SOURCING MANAGER Miscellaneous - 06/25/2016 1:57 AM CSTNotes Recorded by Vangie Sam PA-C on 03/21/2013 at 7:32 AMReviewed urine cx, letter done, sent to staff for printing and distribution.------Notes Recorded by Vangie Sam PA-C on 03/19/2013 at 12:26 PMreviewed ua/micro, discussed at visit. bactrim given. . STRATEGIC SOURCING MANAGER documented in this encounter Plan of Treatment Upcoming Encounters Date Type Specialty Care Team Description 06/15/2022 Appointment Orthopedics Vanna Ulloa MD [address] [place] [address] (Wo rk) documented as of this encounter Procedures Procedure Name Priority Date/Time Associated Comments Diagnosis URINE MICROSCOPIC STAT 03/19/2013 11:06 Result s for this AM SR. STRATEGIC SOURCING MANAGER procedure are i n the results section. URINALYSIS ROUTINE, STAT 03/19/2013 11:06 Dysuria Resu lts for this MICRO/CULTURE IF POS AM SR. STRATEGIC SOURCING MANAGER procedu re are in the results section. URINE CULTURE STAT 03/19/2013 11:06 Results fo r this AM SR. STRATEGIC SOURCING MANAGER procedure are i n the results section. documented in this encounter Results (ABNORMAL) Urine Culture (03/19/2013 11:06 AM SR. STRATEGIC SOURCING MANAGER) [facility] Method Time Signature Source Urine HP CONVERSION Site HP CONVERSION Urine Culture (A) HP CONVERSION Urine Culture ESCHERICHIA HP CONVERSION COLI Comment: Escherichia coli >100,000 cfu/ml Specimen (Source) Anatomical Collection Method Collection Time Re ceived Time Location / / Volume Laterality Urine: 03/19/2013 11:06 AM SR. STRATEGIC SOURCING MANAGER Transcriptions 09/02/2016 10:17 PM CDTNotes Recorded by Vangie Sam PA-C on 03/21/2013 at 7:32 AMReviewed urine cx, letter done, sent to staff for printing and distribution. Organism Antibiotic Method Susceptibility Escherichia coli Amikacin <=2 mcg/mL: Sen sitive Escherichia coli Ampicillin <=2 mcg/mL: Sen sitive Escherichia coli Ampicillin/Sulbactam <=2 mcg/mL : Sensitive Escherichia coli Cefazolin <=4 mcg/mL: Sen sitive Escherichia coli Cefoxitin <=4 mcg/mL: Sen sitive Escherichia coli Ceftazidime <=1 mcg/mL: Sen sitive Escherichia coli Ceftriaxone <=1 mcg/mL: Sen sitive Escherichia coli Ciprofloxacin <=0.25 mcg/mL: Sensitive Escherichia coli Ertapenem <=0.5 mcg/mL: S ensitive Escherichia coli Gentamicin <=1 mcg/mL: Sen sitive Escherichia coli Imipenem <=1 mcg/mL: Sen sitive Escherichia coli Nitrofurantoin <=16 mcg/mL: Se nsitive Escherichia coli Tobramycin <=1 mcg/mL: Sen sitive Escherichia coli Trimethoprim/Sulfamethoxazole < =20 mcg/mL: Sensitive Vangie Sam PA-C LAB_1 Performing Organization Address City/State/ZIP Code Phon e Number HP CONVERSION (ABNORMAL) URINE MICROSCOPIC (03/19/2013 11:06 AM SR. STRATEGIC SOURCING MANAGER) [facility] gist Method Time Signature Urine WBC 50-99 (A) 0 - 4 HP CONVERSION /HPF WBC Clumps Moderate (A) HP CONVERSION Urine RBC 10-24 (A) 0 - 2 HP CONVERSION /HPF Bacteria Urine Few (A) /HPF HP CONVERSION Epithelial Few /HPF HP CONVERSION Cells Specimen Anatomical Collection Method Collection Time Receive d Time (Source) Location / / Volume Laterality 03/19/2013 11:06 03/19/2013 AM SR. STRATEGIC SOURCING MANAGER 11:06 AM SR. STRATEGIC SOURCING MANAGER Narrative HP CONVERSION - 03/19/2013 11:07 AM SR. STRATEGIC SOURCING MANAGER Performed at [facility], [address] [place] [id number] Transcriptions 06/25/2016 1:57 AM CSTNotes Recorded by Vangie Sam PA-C on 03/21/2013 at 7:32 AMReviewed urine cx, letter done, sent to staff for printing and distribution.------Notes Recorded by Vangie Sam PA-C on 03/19/2013 at 12:26 PM reviewed ua/micro, discussed at visit. b actrim given. Vangie Sam PA-C LAB_1 Performing Organization Address City/State/ZIP Code Phon e Number HP CONVERSION (ABNORMAL) URINALYSIS ROUTINE, MICRO/CULTURE IF POS (03/19/2013 11:06 AM SR. STRATEGIC SOURCING MANAGER) [facility] Method Time Signature Urine Type Urine:clean HP CONVERSION cat Turbidity Sl Cloudy Clear HP CONVERSION (A) U BILI Negative Negative HP CONVERSION Blood Urine Large (A) Negative HP CONVERSION Glucose, >=1000 (A) Neg-30 HP CONVERSION Qualitative U mg/dL Ketones >=80 Negative HP CONVERSION Leukocyte Small (A) Negative HP CONVERSION Esterase Urine Nitrite Urine Positive (A) Negative HP CONVERSION Comment: Urine culture has been ordered per reflex protocol. pH Urine 6.0 5.0 - 8.0 HP CONVERSION Protein Urine 100 (A) Neg - Trace mg/dL HP CONVE RSION U Specific [place] 1.015 1.005 - 1.030 HP CONV ERSION Urobilinogen Urine Negative Negative Eu/dL HP CON VERSION Specimen Anatomical Collection Method Collection Time Receive d Time (Source) Location / / Volume Laterality Urine: 03/19/2013 11:06 03/19/2013 AM SR. STRATEGIC SOURCING MANAGER 11:06 AM SR. STRATEGIC SOURCING MANAGER Narrative HP CONVERSION - 03/19/2013 11:07 AM SR. STRATEGIC SOURCING MANAGER Performed at [facility], [address] [place] [id number] Transcriptions 06/25/2016 1:57 AM CSTNotes Recorded by Vangie Sam PA-C on 03/21/2013 at 7:32 AMReviewed urine cx, letter done, sent to staff for printing and distribution.------Notes Recorded by Vangie Sam PA-C on 03/19/2013 at 12:26 PM reviewed ua/micro, discussed at visit. b actrim given. Vangie Sam PA-C LAB_1 Performing Organization Address City/State/ZIP Code Phon e Number HP CONVERSION documented in this encounter Visit Diagnoses Diagnosis Dysuria documented in this encounter Care Teams Hearing Therapy Teacher Relationship Specialty Start Date End Date Needs Pcp, Assignment PCP - General 03/19/13 05/03/13 [place] [address] documented as of this encounter
--- OUTSIDE RECORDS SUMMARY | 2022-04-22 14:05 | XMS_ITS | Encounter Summary ---
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 [address] [place], [place] [phone] [address] Social History Tobacco Use Types Packs/Day Years Used Date Smoking Tobacco: Never Assessed Sex Assigned at Date Recorded Not on file documented as of this encounter Last Filed Vital Signs Vital Sign Reading Time Taken Comments Blood Pressure 132/82 03/21/2012 3:45 PM MACHINE TANK OPERATOR Pulse 94 03/21/2012 3:45 PM MACHINE TANK OPERATOR Temperature 36.7 ??C (98.1 ??F) 03/21/2012 3:45 PM MACHINE TANK OPERATOR Respiratory Rate - - Oxygen Saturation - - Inhaled Oxygen Concentration - - Weight 120.7 kg (266 lb) 03/21/2012 3:45 PM MACHINE TANK OPERATOR Height - - Body Mass Index 42.29 01/18/2012 1:45 PM CDT documented in this encounter Patient Instructions Patient InstructionsMoElly luna - 03/21/2012 3:59 PM CST Delsym cough medicine INE TANK OPERATOR documented in this encounter Progress Notes Elly Sylvester Meme - 03/21/2012 5:11 PM CST Acute Clinic Visit IMPRESSION: Acute Bacterial Bronchitis SUBJECTIVE: History of Present Illness: Symptom(s): Afebrile. Nasal congestion/rhinorrhea. No sore throat. Productive cough. Nasal congestion/rhinorrhea: Duration: 1 week. Severity: Moderate. Symptom Trend: Improving. Productive cough: Duration: 5 days. Severity: Moderate. Symptom Trend: Worsening. Meds This Illness: OTC therapies Past History: No History of Respiratory Disease Tobacco: None. Allergies: Patient's allergies were reviewed and updated in the Allergy section of the electronic medical record. Chronic Medications: Patient's medications were reviewed and updated today in the Medication sectionof the electronic medical record. OBJECTIVE: Vital Signs: Vital Signs taken today were reviewed on the flowsheet in the Electronic Medical Record. General Appearance: Mildly ill-appearing Eyes: External exam is normal bilaterally Ears: Bilateral pinnae, canals and TMs normal Nose/Sinuses: Moderately congested, Clear drainage Oropharynx: Normal, mucous membranes moist, tonsils symmetric without redness or exudate. Neck: Supple without significant adenopathy or thyromegaly Respiratory: Lung sounds clear to auscultation without respiratory distress Cardiac: RRR without murmur Lab & X-Ray: None ASSESSMENT: Acute Bacterial Bronchitis PLAN: Prescriptions provided, see the Medication section of the electronic medical record. Patient was given discharge instructions and was discharged in stable condition. RTC PRN if not gradually improving *SH~PC~URIL ~[place] Note completed on: 03/21/2012 5:11 PM documented in this encounter Plan of Treatment Upcoming Encounters Date Type Specialty Care Team Description 06/15/2022 Appointment Orthopedics Vanna Ulloa MD [address] [place], [place] [phone] (Wo rk) documented as of this encounter Visit Diagnoses Diagnosis Acute bronchitis - Primary documented in this encounter Care Teams Supply Chain Design Manager Relationship Specialty Start Date End Date Md Garcia MD PCP - General 01/18/12 03/18/13 [place] [address] documented as of this encounter
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
--- OUTSIDE RECORDS SUMMARY | 2022-04-22 14:05 | XMS_ITS | Encounter Summary ---
:1965 Author Organization [facility] Address [address] [place] [address] Care Team Providers Name Role Phone Md GEOVANNY Garcia Primary Care Provider Encounter Details Date Type Department Care Team Description 01/21/2012 Lab Visit [facility] Type 2 diabetes mellitus, [address] [place], [place] [phone] Social History Tobacco Use Types Packs/Day Years Used Date Smoking Tobacco: Never Assessed Sex Assigned at Date Recorded Not on file documented as of this encounter Plan of Treatment Upcoming Encounters Date Type Specialty Care Team Description 06/15/2022 Appointment Orthopedics Vanna Ulloa MD [address] [place], [place] [phone] (Wo rk) documented as of this encounter Procedures Procedure Name Priority Date/Time Associated Diagnosis Comme nts ALBUMIN/CREAT RATIO Routine 01/21/2012 10:10 Type 2 diabetes R esults for this AM CDT mellitus, procedure are i n uncontrolled (HR) the resul ts section. GLUCOSE Routine 01/21/2012 9:28 AM Type 2 diabetes Result s for this CDT mellitus, procedure are i n uncontrolled (HR) the resul ts section. HGB A1C Routine 01/21/2012 9:28 AM Type 2 diabetes Result s for this CDT mellitus, procedure are i n uncontrolled (HRC) the resul ts section. documented in this encounter Results Microalb/Creat Ratio (01/21/2012 10:10 AM CDT) Analysis Performed At Patho logist Time Signature Microalbumin 25.0 mg/L HP CONVERSION Urine U Creat Random 256 mg/dL HP CONVERSION Microalbumin/Crea 9.8 0.0 - 30.0 HP CONVERSI ON tinine Ratio Specimen Anatomical Collection Method Collection Time Receive d Time (Source) Location / / Volume Laterality 01/21/2012 10:10 01/21/2012 AM CDT 12:30 PM CDT William CELISBS LAB_1 Performing Organization Address City/[facility] Code Phon e Number HP CONVERSION (ABNORMAL) Hgb A1c (01/21/2012 9:28 AM CDT) P athologist Signature HGB A1C 9.1 (H) 0.0 - 6.0 % HP CONVERSION Specimen Anatomical Collection Method Collection Time Receive d Time (Source) Location / / Volume Laterality 01/21/2012 9:28 AM 2 CDT 12:30 PM CDT William Conteh LALITABS LAB_1 Performing Organization Address City/[facility] Phon e Number HP CONVERSION (ABNORMAL) GLUCOSE (01/21/2012 9:28 AM CDT) P athologist Signature Lab Glucose 213 (H) 60 - 100 HP CONVERSION mg/dL Specimen Anatomical Collection Method Collection Time Receive d Time (Source) Location / / Volume Laterality 01/21/2012 9:28 AM 2 CDT 11:39 AM CDT Narrative HP CONVERSION - 01/21/2012 12:18 PM CDT Performed at [facility], [address] [place] [address] William CELISBS LAB_1 Performing Organization Address City/[facility] Phon e Number HP CONVERSION documented in this encounter Visit Diagnoses Diagnosis Type 2 diabetes mellitus, uncontrolled Type II or unspecified type diabetes amy litus without mention of complication, uncontrolled documented in this encounter Care Teams Briquetter Operator Relationship Specialty Start Date End Date Md Garcia MD PCP - General 01/18/12 03/18/13 [place] [address] documented as of this encounter
--- OUTSIDE RECORDS SUMMARY | 2022-04-22 14:05 | XMS_ITS | Encounter Summary ---
:1965 Author Organization [facility] Address [address] [place] [address] Care Team Providers Name Role Phone Needs Pcp, Assignment Primary Care Provider Encounter Details Date Type Department Care Team Description 03/19/2013 Lab Visit [facility] Diabetes type 2, [address] [place] [address] Social History Tobacco Use Types Packs/Day Years Used Date Smoking Tobacco: Never Assessed Sex Assigned at Date Recorded Not on file documented as of this encounter Progress Notes Vangie Sam PA-C - 03/19/2013 12:26 PM PRIMARY CLASS TEACHER Quick Note: reviewed rapid a1c, lytes from [facility] and verbal creatinine from [facility] at 1.0; discussedat visit. documented in this encounter Miscellaneous Notes Miscellaneous - 06/25/2016 1:57 AM CSTNotes Recorded by Vangie Sam PA-C on 03/19/2013 at 12:26 PMreviewed rapid a1c, lytes from [facility] and verbal creatinine from [facility] at 1.0; discussed at visit. ARY CLASS TEACHER Miscellaneous - 06/25/2016 1:57 AM CSTNotes Recorded by Vangie Sam PA-C on 03/19/2013 at 12:26 PMreviewed rapid a1c, lytes from [facility] and verbal creatinine from [facility] at 1.0; discussed at visit. ARY CLASS TEACHER documented in this encounter Plan of Treatment Upcoming Encounters Date Type Specialty Care Team Description 06/15/2022 Appointment Orthopedics Vanna Ulloa MD [address] [facility], [place] [address] (Wo rk) documented as of this encounter Procedures Procedure Name Priority Date/Time Associated Diagnosis Comme nts CREATININE [facility] STAT 03/19/2013 11:22 Diabetes type 2 , Results for this [facility] AM PRIMARY CLASS TEACHER uncontrolled (HRC) procedure are in the results section. ELECTROLYTES STAT 03/19/2013 11:22 Diabetes type 2, Resu lts for [facility] AM PRIMARY CLASS TEACHER uncontrolled (HRC) procedure are in the results section. HEMOGLOBIN A1C, RAPID STAT 03/19/2013 11:22 Diabetes type 2 , Results for this AM PRIMARY CLASS TEACHER uncontrolled (HRC) procedure are in the results section. documented in this encounter Results (ABNORMAL) ELECTROLYTES [facility] (03/19/2013 11:22 AM PRIMARY CLASS TEACHER) [facility] gist Method Time Signature Sodium St 130.00 135.00 - [place] (L) 145.00 mmol/L Potassium St 4.30 3.50 - [place] 5.10 mmol/L Chloride St 94.00 (L) 98.00 - [place] 110.00 mmol/L Bicarbonate Done 20.00 (L) 22.00 - CONVERSION At [place] 32.00 mmol/L Anion [address] 16.00 6.00 - [place] 16.00 Specimen Anatomical Collection Method Collection Time Receive d Time (Source) Location / / Volume Laterality 03/19/2013 11:22 03/19/2013 AM PRIMARY CLASS TEACHER 11:20 AM PRIMARY CLASS TEACHER Narrative HP CONVERSION - 03/19/2013 12:24 PM PRIMARY CLASS TEACHER Performed at [facility] [address] [facility] [place] [address] Transcriptions 06/25/2016 1:57 AM CSTNotes Recorded by Vangie Sam PA-C on 03/19/2013 at 12:26 PMreviewed rapid a1c, lytes from [facility] and verbal creatinine from [facility] at 1.0; discussed at visit. Vangie Sam PA-C LAB_1 Performing Organization Address [facility] Phon e Number HP CONVERSION CREATININE [facility] (03/19/2013 11:22 AM PRIMARY CLASS TEACHER) P athologist Signature Creatinine St 1.00 0.50 - HP CONVERSION Roger 1.30 mg/dL Hospital GFR [address] >60.00 60.00 - HP CONVERSION [place] 9,999.00 mL/min/1.7 3m2 GFR Non Black 60.00 0.00 - HP CONVERSION ST Fr 60.00 mL/min/1.7 3m2 Specimen Anatomical Collection Method Collection Time Receive d Time (Source) Location / / Volume Laterality 03/19/2013 11:22 03/19/2013 AM PRIMARY CLASS TEACHER 11:20 AM PRIMARY CLASS TEACHER Narrative HP CONVERSION - 03/19/2013 12:25 PM PRIMARY CLASS TE[place]ER [place] [address] Vangie Sam PA-C LAB_1 Performing Organization Address [facility] Phon e Number HP CONVERSION (ABNORMAL) HEMOGLOBIN A1C, RAPID (03/19/2013 11:22 AM PRIMARY CLASS TEACHER) Analysis Performed At Patho logist Time Signature Hemoglobin A1C 8.8 (H) 4.0 - 5.6 HP CONVERSION Rapid % Specimen Anatomical Collection Method Collection Time Receive d Time (Source) Location / / Volume Laterality 03/19/2013 11:22 03/19/2013 AM PRIMARY CLASS TEACHER 11:20 AM PRIMARY CLASS TEACHER Narrative HP CONVERSION - 03/19/2013 11:36 AM PRIMARY CLASS TEACHER Performed at [facility]3], [address] [place] [address] Transcriptions 06/25/2016 1:57 AM CSTNotes Recorded by Vangie Sam PA-C on 03/19/2013 at 12:26 PMreviewed rapid a1c, lytes from [facility] and verbal creatinine from [facility] at 1.0; discussed at visit. Vangie Sam PA-C LAB_1 Performing Organization Address [facility] Phon e Number HP CONVERSION documented in this encounter Visit Diagnoses Diagnosis Diabetes type 2, uncontrolled Type II or unspecified type diabetes amy litus without mention of complication, uncontrolled documented in this encounter Care Teams Security System Technician Relationship Specialty Start Date End Date Needs Pcp, Assignment PCP - General 03/19/13 05/03/13 [place] [address] documented as of this encounter
--- OUTSIDE RECORDS SUMMARY | 2022-04-22 14:05 | XMS_ITS | Encounter Summary ---
:1965 Author Organization [email or web address] Address [address] [place] [address] Care Team Providers Name Role Phone Md GEOVANNY Garcia Primary Care Provider Reason for Visit Reason Comments DOT EXAM Encounter Details Date Type Department Care Team Description 01/18/2012 Office Visit [facility] YOHAN Carmen examination for [address] administ rative purposes Cecilia. Cecilia (Primary Dx) [place] [address] [place], [place] [phone] Social History Tobacco Use Types Packs/Day Years Used Date Smoking Tobacco: Never Assessed Sex Assigned at Date Recorded Not on file documented as of this encounter Last Filed Vital Signs Vital Sign [place] Time Taken Comments Blood Pressure 145/103 01/18/2012 1:57 PM CDT Pulse 78 01/18/2012 1:57 PM CDT Temperature - - Respiratory Rate - - Oxygen Saturation - - Inhaled Oxygen Concentration - - Weight 124.7 kg (275 lb) 01/18/2012 1:45 PM CDT Height 168.9 cm (5' 6.5) 01/18/2012 1:45 PM CDT Body Mass Index 43.72 01/18/2012 1:45 PM CDT documented in this encounter Progress Notes William Conteh MBBS - 01/20/2012 6:26 AM CDT DOT EXAM This is a 46-year-old woman who is here today for a DOT recertification exam . 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 She does have a history of hypertension and diabetes . DOT form was completed and filled but not signed due to the fact that her blood pressure was 146/103 and her urine chest showed presence of glucose. when discussing these findings with the patient she admits to have not taken her blood pressure medications today and does not check her blood sugars in about a week. I have discussed the fact that given that her hypertension appears not to be under good control I would only be able to validate her certificate for one year. As the patient believes that her blood pressure is under good control she does take her medications we have agreed to see her again in clinic 3 days from now when she has been taking her medication and validate her certificate for the usual 2 years if the blood pressure is indeed under good control. The patient additionally will perform diabetes tests before and we will do a diabetes check at that time also. DOT form will be given to the patient and her new visit with the appropriate time frame for renewal. documented in this encounter Plan of Treatment Upcoming Encounters Date Type Specialty Care Team Description 06/15/2022 Appointment Orthopedics Vanna Ulloa MD [address] [place] [address] (Wo rk) documented as of this encounter Visit Diagnoses Diagnosis Other general medical examination for ad ministrative purposes - Primary documented in this encounter Care Teams Pick Up Relationship Specialty Start Date End Date Md Garcia MD PCP - General 01/18/12 03/18/13 [place] [address] documented as of this encounter
--- OUTSIDE RECORDS SUMMARY | 2022-04-22 14:05 | XMS_ITS | Encounter Summary ---
:1965 Author Organization [facility] Address [address] [place] [address] Care Team Providers Name Role Phone Md GEOVANNY Garcia Primary Care Provider Encounter Details Date Type Department Care Team Description 07/21/2012 Lab Visit [facility] Type II or unspecified type diabetes mellitus without mention of complication, not stated as uncontrolled (Primary Dx); [address] Unspecified essential hypert ension [place] [id number] Social History Tobacco Use Types Packs/Day Years Used Date Smoking Tobacco: Never Assessed Sex Assigned at Date Recorded Not on file documented as of this encounter Plan of Treatment Upcoming Encounters Date Type Specialty Care Team Description 06/15/2022 Appointment Orthopedics Vanna Ulloa MD [address] [place], [place] [phone] (Wo rk) documented as of this encounter Procedures Procedure Name Priority Date/Time Associated Diagnosis Comme nts LIPID PANEL AND Routine 07/21/2012 3:53 PM Type II or Result s for this DIRECT LDL(IF SHARE HOLDER unspecified type procedure are in NEEDED) diabetes mellitus the result s without mention of section. complication, not stated as uncontrolled (HRC) CREATININE / GFR Routine 07/21/2012 3:53 PM Unspecified essent ial Results for this SHARE HOLDER hypertension (HRC) procedure are in the results section. ELECTROLYTE PANEL Routine 07/21/2012 3:53 PM Unspecified essen tial Results for this SHARE HOLDER hypertension (HRC) procedure are in the results section. HGB A1C Routine 07/21/2012 3:53 PM Type II or Results f or this SHARE HOLDER unspecified type procedure a re in diabetes mellitus the result s without mention of section. complication, not stated as uncontrolled (HRC) documented in this encounter Results (ABNORMAL) Lipid Panel and Direct LDL(If Needed) (07/21/2012 3:53 PM SHARE HOLDER) [facility] gist Method Time Signature Cholesterol 198 0 - 200 HP CONVERSION mg/dL Triglycerides 342 (H) 0 - 149 HP CONVERSION mg/dL HDL Cholesterol 33 (L) >39 mg/dL HP CONVERSION Cholesterol/HDL 6.0 HP CONVERSION Ratio Screen LDL Calculated 97 19 - 130 HP CONVERSION mg/dL Length Of Fast 15.5 HP CONVERSION Specimen Anatomical Collection Method Collection Time Receive d Time (Source) Location / / Volume Laterality 07/21/2012 3:53 PM 3 8:26 SHARE HOLDER PM SHARE HOLDER Narrative HP CONVERSION - 07/21/2012 8:52 PM SHARE HOLDER Performed at [facility], [address] [place] [address] William Raymundo Yady BS LAB_1 Performing Organization Address City/[facility] Code Phon e Number HP CONVERSION (ABNORMAL) Hgb A1c (07/21/2012 3:53 PM SHARE HOLDER) athologist Signature HGB A1C 9.3 (H) 0.0 - 6.0 % HP CONVERSION Specimen Anatomical Collection Method Collection Time Receive d Time (Source) Location / / Volume Laterality 07/21/2012 3:53 PM 3 9:29 SHARE HOLDER PM SHARE HOLDER William Raymundo Yady BS LAB_1 Performing Organization Address City/[facility] Code Phon e Number HP CONVERSION Creatinine / GFR (07/21/2012 3:53 PM SHARE HOLDER) athologist Signature Creatinine 0.9 0.4 - 1.3 [...] Time (Source) Location / / Volume Laterality 07/21/2012 3:53 PM 3 8:26 SHARE HOLDER PM SHARE HOLDER Narrative HP CONVERSION - 07/21/2012 8:52 PM SHARE HOLDER Performed at [facility], [address] [place] [address] William Leyshahla ALMANZAR LAB_1 Performing Organization Address [facility] Phon e Number HP CONVERSION Electrolyte Panel (07/21/2012 3:53 PM SHARE HOLDER) athologist Signature Sodium 137 137 - 147 HP CONVERSION mEq/L Potassium 4.1 3.5 - 5.2 HP CONVERSION mEq/L Chloride 99 98 - 110 HP CONVERSION mEq/L Bicarbonate 30 23 - 33 HP CONVERSION mmol/L Specimen Anatomical Collection Method Collection Time Receive d Time (Source) Location / / Volume Laterality 07/21/2012 3:53 PM 3 8:26 SHARE HOLDER PM SHARE HOLDER Narrative HP CONVERSION - 07/21/2012 8:52 PM SHARE HOLDER Performed at [facility], [address] [place] [address] William Leyarrete LALITA LAB_1 Performing Organization Address [facility] Phon e Number HP CONVERSION documented in this encounter Visit Diagnoses Diagnosis Type II or unspecified type diabetes amy litus without mention of complication, not stated as uncontrolled (HRC) - Primary Type II or unspecified type diabetes amy litus without mention of complication, not stated as uncontrolled Unspecified essential hypertension (HRC) Unspecified essential hypertension documented in this encounter Care Teams Clinical Operations Leader Relationship Specialty Start Date End Date Md Garcia MD PCP - General 01/18/12 03/18/13 [place] [address] documented as of this encounter
--- OUTSIDE RECORDS SUMMARY | 2022-04-22 14:05 | XMS_ITS | Encounter Summary ---
:1965 Author Organization [facility] Address [address] [place] [address] Care Team Providers Name Role Phone Md GEOVANNY Garcia Primary Care Provider Encounter Details Date Type Department Care Team Description 01/18/2012 Lab Visit [facility] Other general medical [address] [facility] [place] [address] administrative purposes [phone] Social History Tobacco Use Types Packs/Day Years Used Date Smoking Tobacco: Never Assessed Sex Assigned at Date Recorded Not on file documented as of this encounter Progress Notes Pearl Conteh MBBS - 01/20/2012 4:13 PM CDT Quick Note: Results were discussed with patient in clinic. documented in this encounter Miscellaneous Notes Miscellaneous - 09/03/2016 5:41 AM CDTNotes Recorded by YOHAN Dalton on 01/20/2012 at 4:13 PMResults were discussed with patient in clinic. Miscellaneous - 06/25/2016 3:00 PM CSTNotes Recorded by YOHAN Dalton on 01/20/2012 at 4:13 PMResults were discussed with patient in clinic. D ACCOUNT EXECUTIVE Miscellaneous - 06/25/2016 3:00 PM CSTNotes Recorded by YOHAN Dalton on 01/20/2012 at 4:13 PMResults were discussed with patient in clinic. D ACCOUNT EXECUTIVE documented in this encounter Plan of Treatment Upcoming Encounters Date Type Specialty Care Team Description 06/15/2022 Appointment Orthopedics Vanna Ulloa MD [address] [place] [address] (Wo rk) documented as of this encounter Procedures Procedure Name Priority Date/Time Associated Diagnosis Comme nts URINE CULTURE STAT 01/18/2012 1:45 Results for this PM CDT procedure are i n the results section. URINE MICROSCOPIC STAT 01/18/2012 1:43 Results for this PM CDT procedure are i n the results section. URINALYSIS ROUTINE, STAT 01/18/2012 1:43 Other general medi nadine Results for this MICRO/CULTURE IF POS PM CDT examination for proc edure are in administrative the results purposes section. documented in this encounter Results Urine Culture (01/18/2012 1:45 PM CDT) [facility] gist Method Time Signature Urine Culture Mixed gram HP CONVERSION positive organisms. 50-100,000 cfu/mL Comment: ? ORDERED BY: PEARL CONTEH SOURCE: Urine ?COLLECTED: ??01/18/12 13:45 ? PLATED: ? 01/18/12 13:58 Culture Urine ?FINAL ? 01/19/12 10:58 Mixed gram positive organisms. ??50-100 ,000 cfu/mL Specimen (Source) Anatomical Collection Method Collection Time Re ceived Time Location / / Volume Laterality Urine: 01/18/2012 1:45 PM CDT Transcriptions 09/03/2016 5:41 AM CDTNotes Recorded by YOHAN Dalton on 01/20/2012 at 4:13 PMResults were discussed with patient in clinic. Pearl ALMANZAR LAB_1 Performing Organization Address City/[facility] Code Phon e Number HP CONVERSION (ABNORMAL) URINE MICROSCOPIC (01/18/2012 1:43 PM CDT) [facility] Update[employer]ic Method Time Signature Urine WBC 3-4 0 - 4 HP CONVERSION /HPF Urine RBC 0-2 0 - 2 HP CONVERSION /HPF Bacteria Moderate (A) /HPF HP CONVERSION Urine Comment: Urine culture has been orde red per reflex protocol. Epithelial Cells Moderate /HPF HP CONVERSION Specimen Anatomical Collection Method Collection Time Receive d Time (Source) Location / / Volume Laterality 01/18/2012 1:43 PM 2 1:43 CDT PM CDT Narrative HP CONVERSION - 01/18/2012 1:58 PM CDT Performed at [facility], [address] [place] [id number] Transcriptions 06/25/2016 3:00 PM CSTNotes Recorded by YOHAN Dalton on 01/20/2012 at 4:13 PMResults were discussed with patient in clinic. Pearl ALMANZAR [facility]_1 Performing Organization Address [facility] Phon e Number HP CONVERSION (ABNORMAL) URINALYSIS ROUTINE, MICRO/CULTURE IF POS (01/18/2012 1:43 PM CDT) [facility] [employer] Method Time Signature Urine Type Urine:clean HP CONVERSION cat Turbidity Clear Clear HP CONVERSION U BILI Negative Negative HP CONVERSION Blood Urine Trace (A) Negative HP CONVERSION Glucose, >=1000 (A) Neg-30 HP CONVERSION Qualitative U mg/dL Ketones Trace (A) Negative HP CONVERSION Leukocyte Negative Negative HP CONVERSION Esterase Urine Nitrite Urine Negative Negative HP CONVERSION pH Urine 5.5 5.0 - 8.0 HP CONVERSION Protein Urine Negative Neg - Trace HP CONVERSION mg/dL U Specific >=1.030 1.005 - HP CONVERSION [place] 1.030 Urobilinogen Negative Negative HP CONVERSION Urine Eu/dL Specimen Anatomical Collection Method Collection Time Receive d Time (Source) Location / / Volume Laterality Urine: 01/18/2012 1:43 PM 2 1:43 CDT PM CDT Narrative HP CONVERSION - 01/18/2012 1:58 PM CDT Performed at [facility], [address] [place] [id number] Transcriptions 06/25/2016 3:00 PM CSTNotes Recorded by YOHAN Dalton on 01/20/2012 at 4:13 PMResults were discussed with patient in clinic. Pearl ALMANZAR LAB_1 Performing Organization Address City/State/ZIP Code Phon e Number HP CONVERSION documented in this encounter Visit Diagnoses Diagnosis Other general medical examination for ad ministrative purposes documented in this encounter Care Teams Interactive Media Designer Relationship Specialty Start Date End Date Md Garcia MD PCP - General 01/18/12 03/18/13 [place] [address] documented as of this encounter
--- OUTSIDE RECORDS SUMMARY | 2022-04-22 14:05 | XMS_ITS | Encounter Summary ---
:1965 Author Organization [facility] Address [address] [place] [address] Care Team Providers Name Role Phone Vangie Sam Damien BROWNING Primary Care Provider [phone] Reason for Visit Reason Comments Cough Pharyngitis Encounter Details Date Type Department Care Team Description 06/05/2013 Office Visit Jelani Steward Bronchi tis (Primary Dx); Mary Moreno MD Acute pharyngitis [address] [place] [address] [address] [phone] [place], [place] [phone] Social History Tobacco Use Types Packs/Day Years Used Date Smoking Tobacco: Never Assessed Sex Assigned at Date Recorded Not on file documented as of this encounter Last Filed Vital Signs Vital Sign Reading Time Taken Comments Blood Pressure 136/80 06/05/2013 4:11 PM GLASS CHECKER Pulse 88 06/05/2013 4:11 PM GLASS CHECKER Temperature 36.4 ??C (97.5 ??F) 06/05/2013 4:11 PM GLASS CHECKER Respiratory Rate - - Oxygen Saturation - - Inhaled Oxygen Concentration - - Weight 117 kg (258 lb) 06/05/2013 4:11 PM GLASS CHECKER Height - - Body Mass Index 41.02 01/18/2012 1:45 PM CDT documented in this encounter Patient Instructions Patient InstructionsJelani Carlin MD - 06/05/2013 4:35 PM CST 1. Can use OTC combination cold formulas and cough suppressant as necessary. 2. Aggressive clear liquid hydration. Try using a vaporizer or humidifier at night to help with the sore throat. 3. Return if progression of symptoms with increasing phlegm production, shortness of breath, or progressive fevers * 4. Use the codeine cough medication for night time cough suppression. Use the tessalon during the day as well. 5. Aleve or ibuprofen can be helpful during the day for throat/chest pain. S CHECKER documented in this encounter Progress Notes Jelani Carlin MD - 06/05/2013 6:07 PM CST Subjective: Liz Phelps has been having URI symptoms now for the last 3 days, worse the last 2 days. Cough has been productive with green sputum, has had some strands of blood in the sputum. She does have dyspnea with more severe coughing. The patient is not experiencing sinus congestion/drainage, only mild rhinorrhea. The patient is having a sore throat. Fevers have been: fevers up to 102.2 degrees, most recently this morning. The patient is experiencing myalgias/arthralgias. Infectious exposures: Daughter with URI, has been improving over the last 5 days or so. Respiratory history: No history of asthma. Environmental allergies: No seasonal allergies. No Known Allergies Current Outpatient Prescriptions on File Prior to [...] mouth daily (every 24 hours). 100 ??? [place]-3 Fatty Acids Cap daily (every 24 hours). [...] facility-administered medications on file prior to visit. History Smoking status ??? Former Smoker Smokeless tobacco ??? Never Used Comment: Quit smoking: No past medical history on file. History Social History ??? Marital Status: Spouse Name: N/A Number of Children: N/A ??? Years of Education: N/A Social History Main Topics ??? Smoking status: Former Smoker ??? Smokeless tobacco: Never Used Comment: Quit smoking: ??? Alcohol Use: None Comment: Alcoholic Drinks/day: Amount:1-2 drinks; Freq:2-4/Month ; ??? Drug Use: None ??? Sexually Active: None Other Topics Concern ??? None Social History Narrative . has daughter with telma who just started high school. Objective: Filed Vitals: 06/05/13 1611 BP: 136/80 Pulse: 88 Temp: 97.5 ??F (36.4 ??C) TempSrc: Oral Weight: 258 lb (117.028 kg) General: does not appear acutely ill HEENT: Normocephalic, atraumatic, Sinuses: moderate congestion with clear drainage. Sinus tendernessto palpation: absent. TMs are normal in appearance. Oropharynx Clear. Neck is supple with mild lymphatic tenderness to palpation. Heart: RRR without murmur Chest: Fair air movement throughout. No rales/rhonchi/wheezing. Skin: Warm/Dry, no rashes. RST negative Assessment: Viral bronchitis Plan: 1. Symptomatic cares with over the counter combination cold formulas as appropriate for the patient's medical conditions. 2. Antibiotic use is discussed: is not appropriate for the current condition. 3. Return if progressive symptoms including progressive fevers, shortness of breath, increasingly productive sputum with cough or progressive sinus pain/pressure. 4. Given a prescription for guaifenesin with codeine and Tessalon Perles to help with cough management. I did encourage use [id number] NSAIDs to help with pain. Strep culture is pending. This note was produced using voice recognition software and may contain typographic or phonetic errors. S CHECKER documented in this encounter Plan of Treatment Upcoming Encounters Date Type Specialty Care Team Description 06/15/2022 Appointment Orthopedics Vanna Ulloa MD [address] [place] [address] (Wo rk) documented as of this encounter Procedures Procedure Name Priority Date/Time Associated Diagnosis Comme nts BETA STREP FOLLOWUP Routine 06/05/2013 5:10 PM Re sults for this GLASS CHECKER procedure are i n the results section. GROUP A STREP Routine 06/05/2013 4:18 PM Acute pharyngitis Res ults for this ANTIGEN SCREEN GLASS CHECKER procedure are in the results section. documented in this encounter Results BETA STREP FOLLOWUP (06/05/2013 5:10 PM GLASS CHECKER) [facility] Time Signature Source Throat HP CONVERSION Site HP CONVERSION Strep Screen No beta HP CONVERSION hemolytic Strep Group A isolated. Specimen (Source) Anatomical Collection Method Collection Time Re ceived Time Location / / Volume Laterality Throat: 06/05/2013 5:10 PM GLASS CHECKER Jelani Carlin MD LAB_1 Performing Organization Address City/State/ZIP Code Phon e Number HP CONVERSION RAPID STREP GROUP A WAIVED (06/05/2013 4:18 PM GLASS CHECKER) Analysis Performed At Patho logist Time Signature Strep A Negative Negative HP CONVERSION Antigen Strep A Source Throat: HP CONVERSION Specimen Anatomical Collection Method Collection Time Receive d Time (Source) Location / / Volume Laterality 06/05/2013 4:18 PM 4 5:09 GLASS CHECKER PM GLASS CHECKER Narrative HP CONVERSION - 06/05/2013 5:10 PM GLASS CHECKER Performed at [facility], [address] [place] [id number] Jelani Carlin MD LAB_1 Performing Organization Address City/State/ZIP Code Phon e Number HP CONVERSION documented in this encounter Visit Diagnoses Diagnosis Bronchitis - Primary Bronchitis, not specified as acute or ch ronic Acute pharyngitis documented in this encounter Care Teams Electrical Prospecting Engineer Relationship Specialty Start Date End Date Vangie Sam PA-C PCP - General 05/04/13 04/14/[address] [place] [id number] documented as of this encounter
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
--- OUTSIDE RECORDS SUMMARY | 2022-04-22 14:05 | XMS_ITS | Encounter Summary ---
:1965 Author Organization [email or web address] Address [address] [place] [address] Care Team Providers Name Role Phone Vangie Sam Damien BROWNING Primary Care Provider [phone] Encounter Details Date Type Department Care Team Description 05/07/2013 Lab Visit [facility] Other and unspecified hyperl ipidemia; [address] Type II or unspecified type diabetes mellitus without mention of complication, not stated as uncontrolled CHANA Holder [id number] Social History Tobacco Use Types Packs/Day Years Used Date Smoking Tobacco: Never Assessed Sex Assigned at Date Recorded Not on file documented as of this encounter Plan of Treatment Upcoming Encounters Date Type Specialty Care Team Description 06/15/2022 Appointment Orthopedics Vanna Ulloa MD [address] [place], [place] [phone] (Wo rk) documented as of this encounter Procedures Procedure Name Priority Date/Time Associated Diagnosis Comme nts GLUCOSE Routine 05/07/2013 11:04 Type II or unspecified R esults for this AM LOGISTICS SUPPLY OFFICER type diabetes mellitus proce dure are in without mention of the resul ts complication, not section. stated as uncontrolled (HRC) TRIGLYCERIDES (> 12 Routine 05/07/2013 11:04 Other and unspeci fied Results for this HR. FAST) AM LOGISTICS SUPPLY OFFICER hyperlipidemia (HRC) procedu re are in the results section. documented in this encounter Results (ABNORMAL) GLUCOSE (05/07/2013 11:04 AM LOGISTICS SUPPLY OFFICER) athologist Signature Lab Glucose 253 (H) 60 - 100 HP CONVERSION mg/dL Specimen Anatomical Collection Method Collection Time Receive d Time (Source) Location / / Volume Laterality 05/07/2013 11:04 05/07/2013 2:44 AM LOGISTICS SUPPLY OFFICER PM LOGISTICS SUPPLY OFFICER Narrative HP CONVERSION - 05/07/2013 3:53 PM LOGISTICS SUPPLY OFFICER Performed at [facility], [address] [place] [address] Shruti Francisco PA-C LAB_1 Performing Organization Address [facility] Phon e Number HP CONVERSION (ABNORMAL) Triglycerides (> 12 Hr. Fast) (05/07/2013 11:04 AM LOGISTICS SUPPLY OFFICER) athologist Signature Triglycerides 402 (H) 0 - 149 HP CONVERSION mg/dL Specimen Anatomical Collection Method Collection Time Receive d Time (Source) Location / / Volume Laterality 05/07/2013 11:04 05/07/2013 2:44 AM LOGISTICS SUPPLY OFFICER PM LOGISTICS SUPPLY OFFICER Narrative HP CONVERSION - 05/07/2013 3:53 PM LOGISTICS SUPPLY OFFICER Performed at [facility], [address] [place] [address] Shruti Francisco PA-C LAB_1 Performing Organization Address [facility] Phon e Number HP CONVERSION documented in this encounter Visit Diagnoses Diagnosis Other and unspecified hyperlipidemia (HR C) Other and unspecified hyperlipidemia Type II or unspecified type diabetes amy litus without mention of complication, not stated as uncontrolled (HRC) Type II or unspecified type diabetes amy litus without mention of complication, not stated as uncontrolled documented in this encounter Care Teams Programmer Or Analyst Relationship Specialty Start Date End Date Vangie Sam PA-C PCP - General 05/04/13 04/14/14 [facility] [place] [address] documented as of this encounter
--- OUTSIDE RECORDS SUMMARY | 2022-04-22 14:05 | XMS_ITS | Encounter Summary ---
:1965 Author Organization [facility] Address [address] [place] [address] Care Team Providers Name Role Phone Md GEOVANNY Garcia Primary Care Provider Reason for Visit Reason Comments Refill Encounter Details Date Type Department Care Team Description 05/12/2012 [facility] William Conteh MBBS Refill [address] [facility] [place] [address] [place] [address] [phone] (Wo rk) Social History Tobacco Use Types Packs/Day Years Used Date Smoking Tobacco: Never Assessed Sex Assigned at Date Recorded Not on file documented as of this encounter Nursing Notes Lyndsay Hurley MA - 05/15/2012 3:39 PM CST pt notified. Rx was faxed to pharmacy. DRILLER William Conteh MBBS - 05/15/2012 3:20 PM CST Please let patient know a new prescription with the correct dose (20 mg) has been faxed to her pharmacy DRILLER Germaine Werner - 05/15/2012 12:[address] Conteh to address. Action requested: do you want patient on 10 mg of Lisinopril or 20 mg? Spoke with patient and she states that dose was increased in to 20 mg daily. Unable to find where this was mentioned. Additional Info: Patient will need new RX reflecting increase to 20 mg. Also, states she is unable to afford lab appt. Has lost her unemployment benefits. has insurance. They have #1500 deductible and money is tight. DRILLER Amisha Conner - 05/15/2012 11:54 AM CST Advised patient of refill being approved. Patient will call back and schedule appointment with lab. Patient stated that last time she was in the doctor the lisinopril was bumped up to 20mg instead of 10mg. She is concerned that with only 10mg that it will last only 15 days. Please advise which mg it should be. Sridevi Mistry HUC - 05/12/2012 4:00 PM CST Meds refilled by Dr Conteh. Patient needs to have lab appointment for electrolytes before lisinopril can be refilled any more. Please notify patient and assist in scheduling lab appointment. DRILLER Alexus Cole RN - 05/12/2012 1:40 PM CST RN Reviewed--Needing signed order in [facility] for Metformin. Last visit with PCP on 01/25/12. Lisinopril DOES NOT MEET REQUIREMENTS FOR REFILL Reason: Labs needed Last visit with PCP: 01/25/12 Last Labs: Creatinine and Potassium. Never done staffing mgr action: is needed. Please route to [facility] to assist with lab appt. Prescription Refills Pending Prescriptions Disp Refills ??? metFORMIN (GLUCOPHAGE-XR) 500 mg XR 24 hour tablet 60 tablet 3 Sig: Take 1 tablet by mouth 2 times daily. ??? lisinopril (PRINIVIL, ZESTRIL) 10 mg tablet 30 tablet 0 Sig: Take 1 tablet by mouth daily (every 24 hours). documented in this encounter Plan of Treatment Upcoming Encounters Date Type Specialty Care Team Description 06/15/2022 Appointment Orthopedics Vanna Ulloa MD [address] [place], [place] [phone] (Wo rk) documented as of this encounter Visit Diagnoses Diagnosis Unspecified essential hypertension (HRC) - Primary Unspecified essential hypertension documented in this encounter Care Teams Laminator Preforms Relationship Specialty Start Date End Date Md Garcia MD PCP - General 01/18/12 03/18/13 [place] [address] documented as of this encounter
--- OUTSIDE RECORDS SUMMARY | 2022-04-22 14:05 | XMS_ITS | Encounter Summary ---
:1965 [facility] Address [address] [place] [address] Care Team Providers Name Role Phone Md GEOVANNY Garcia Primary Care Provider Reason for Visit Reason Comments HYPERTENSION Encounter Details Date Type Department Care Team Description 01/25/2012 Office Visit William Colby HTN (h ypertension); Medicine YOHAN Raymundo Type 2 diabetes mellitus, uncontrolled [address] [place] [address] [address] [phone] [place], [place] [address] Social History Tobacco Use Types Packs/Day Years Used Date Smoking Tobacco: Never Assessed Sex Assigned at Date Recorded Not on file documented as of this encounter Last Filed Vital Signs Vital Sign Reading Time Taken Comments Blood Pressure 133/93 01/25/2012 11:40 AM CDT Pulse 86 01/25/2012 11:40 AM CDT Temperature - - Respiratory Rate - - Oxygen Saturation - - Inhaled Oxygen Concentration - - Weight 119.7 kg (264 lb) 01/25/2012 11:32 AM CDT Height - - Body Mass Index 41.97 01/18/2012 1:45 PM CDT documented in this encounter Progress Notes William Conteh MBBS - 01/26/2012 11:29 PM CDT CLINIC VISIT This is a 46-year-old woman who was seen 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 Her past medical history was significant for both hypertension and diabetes with although she admitted she was not taking any of her meds. Her blood pressure was elevated at that time. I discussed with her the fact that if her blood pressure was not under good control her certificate would only be valid for either 6 months or one year instead of the regular 2 years. In addition your urine test waspositive for glucose. We requested diabetes labs and agreed to check to make recommendations on restarting management for diabetes mellitus as well. Patient has been taken lisinopril 10 mg daily since her last visit and her blood pressure today is 133/93. Diabetes labs show a fasting lab glucose of 203 and a hemoglobin A1c of 9.1 which is consistent with numbers around the 200s. At this point my recommendation has been to restart treatment with metformin 500 mg p.o. b.i.d. which was the last effective dose and she had used in the past but most importantly resume blood sugar testing on a daily basis. I have asked her to return to the clinic 3 weeks from now with logs of her blood sugars to evaluateher diabetes management. 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 The total time for today's visit was 25 minutes and greater than 90% of the time was employed in reviewing lab results outlining a plan of care and filling forms. The patient was discharged ambulatory and in stable condition. *SH~DNS~SOAP documented in this encounter Plan of Treatment Upcoming Encounters Date Type Specialty Care Team Description 06/15/2022 Appointment Orthopedics Vanna Ulloa MD [address] [place] [address] (Wo rk) documented as of this encounter Visit Diagnoses Diagnosis HTN (hypertension) (HRC) Unspecified essential hypertension Type 2 diabetes mellitus, uncontrolled Type II or unspecified type diabetes amy litus without mention of complication, uncontrolled documented in this encounter Care Teams Wrong Address Clerk Relationship Specialty Start Date End Date Md Garcia MD PCP - General 01/18/12 03/18/13 [place] [address] documented as of this encounter
--- OUTSIDE RECORDS SUMMARY | 2022-04-22 14:05 | XMS_ITS | Encounter Summary ---
:1965 Author Organization [facility] Address [address] [place] [address] Care Team Providers Name Role Phone Md GEOVANNY Garcia Primary Care Provider Reason for Visit Reason Comments Refill Encounter Details Date Type Department Care Team Description 05/05/2011 Refill [facility] Lesley Craig Refill [address] [facility] [place] [address] Social History Tobacco Use Types Packs/Day Years Used Date Smoking Tobacco: Never Assessed Sex Assigned at Date Recorded Not on file documented as of this encounter Nursing Notes Asya Abdi RN - 05/06/2011 9:17 AM CST LMM informed pt of med refill, requested a call back to schedule an appt. Sridevi Mistry HUC - 05/05/2011 5:28 PM CST Please assist patient in scheduling follow up appointment for future refills CAL CLAIMS ANALYST Mian Tony MD - 05/05/2011 5:08 PM CST 1 refill and due for appt CAL CLAIMS ANALYST Lyndsay Johnson RN - 05/05/2011 2:38 PM CST UNABLE TO REFILL PER MEDICAL REFILL PROTOCOL Comment: pt seen 08/2010, per note to f/u in 3-4 weeks, no current appt seen, to clinician per distribution documented in this encounter Plan of Treatment Upcoming Encounters Date Type Specialty Care Team Description 06/15/2022 Appointment Orthopedics Vanna Ulloa MD [address] [facility] [place] [id number] (Wo rk) documented as of this encounter Visit Diagnoses Not on filedocumented in this encounter Care Teams Social Worker School Relationship Specialty Start Date End Date Md Garcia MD PCP - General 08/16/10 01/17/12 [place] [address] documented as of this encounter
--- OUTSIDE RECORDS SUMMARY | 2022-04-22 14:05 | XMS_ITS | Encounter Summary ---
:1965 Author Organization [facility] Address [address] [place] [address] Care Team Providers Name Role Phone Md GEOVANNY Garcia Primary Care Provider Encounter Details Date Type Department Care Team Description 01/18/2012 Notes/Orders William Colby Type 2 diabetes Medicine H, MBBS mellitus, uncontrolled [address] (Primary Dx) [place] [address] Ave [phone] [place], [place] [address] Social History Tobacco Use Types Packs/Day Years Used Date Smoking Tobacco: Never Assessed Sex Assigned at Date Recorded Not on file documented as of this encounter Plan of Treatment Upcoming Encounters Date Type Specialty Care Team Description 06/15/2022 Appointment Orthopedics Vanna Ulloa MD [address] [place] [address] (Wo rk) documented as of this encounter Visit Diagnoses Diagnosis Type 2 diabetes mellitus, uncontrolled - Primary Type II or unspecified type diabetes amy litus without mention of complication, uncontrolled documented in this encounter Care Teams Horticulture Worker Relationship Specialty Start Date End Date Md Garcia MD PCP - General 01/18/12 03/18/13 [place], [place] [phone] documented as of this encounter
--- OUTSIDE RECORDS SUMMARY | 2022-04-22 14:06 | XMS_ITS | Encounter Summary ---
:1965 Author Organization [facility] Address [address] [place] [address] Care Team Providers Name Role Phone Md GEOVANNY Garcia Primary Care Provider Encounter Details Date Type Department Care Team Description 06/04/2009 Office Visit Glory Barrera gy Harry Montaño G, OD [address] [facility] [address] [facility][Note 3] [place] [address] [place], [place] [address] (Wo rk) Social History Tobacco Use Types Packs/Day Years Used Date Smoking Tobacco: Never Assessed Sex Assigned at Date Recorded Not on file documented as of this encounter Plan of Treatment Upcoming Encounters Date Type Specialty Care Team Description 06/15/2022 Appointment Orthopedics Vanna Ulloa MD [address] [place], [place] [address] (Wo rk) documented as of this encounter Visit Diagnoses Not on filedocumented in this encounter Care Teams Animal Control Licensing Worker Relationship Specialty Start Date End Date Md Garcia MD PCP - General 08/16/10 01/17/12 [place], [place] [address] documented as of this encounter
--- OUTSIDE RECORDS SUMMARY | 2022-04-22 14:06 | XMS_ITS | Encounter Summary ---
:1965 Author Organization [facility] Address [address] [facility] [place] [address] Care Team Providers Name Role Phone Md GEOVANNY Garcia Primary Care Provider Encounter Details Date Type Department Care Team Description 05/21/2009 PN Conversion Only [place] CONVERSION Germaine Chilel [address] [facility] [place] [address] [address] [facility] [place], [place] [phone] (Wo rk) Social History Tobacco Use Types Packs/Day Years Used Date Smoking Tobacco: Never Assessed Sex Assigned at Date Recorded Not on file documented as of this encounter Plan of Treatment Upcoming Encounters Date Type Specialty Care Team Description 06/15/2022 Appointment Orthopedics aVnna Ulloa MD [address] [place], [place] [address] (Wo rk) documented as of this encounter Procedures Procedure Name Priority Date/Time Associated Diagnosis Comme nts GLUCOSE Routine 05/21/2009 11:24 AM Results for this [facility] procedure are i n the results section . HGB A1C Routine 05/21/2009 11:24 AM Results for this [facility] procedure are i n the results section . documented in this encounter Results (ABNORMAL) Hgb A1c (05/21/2009 11:24 AM [facility]) P athologist Signature HGB A1C 6.4 (H) <6.0 % HP CONVERSION Specimen (Source) Anatomical Collection Method Collection Time Re ceived Time Location / / Volume Laterality 05/21/2009 11:24 AM [facility] Germaine Chilel MD LAB_1 Performing Organization Address City/State/ZIP Code Phon e Number HP CONVERSION (ABNORMAL) GLUCOSE (05/21/2009 11:24 AM [facility]) P athologist Signature Length Of Fast 12.0 Hours HP CONVERSION Lab Glucose 152 (H) 60 - 100 HP CONVERSION mg/dL Specimen (Source) Anatomical Collection Method Collection Time Re ceived Time Location / / Volume Laterality 05/21/2009 11:24 AM [facility] Germaine Chilel MD LAB_1 Performing Organization Address City/[facility]/ZIP Code Phon e Number HP CONVERSION documented in this encounter Visit Diagnoses Not on filedocumented in this encounter Care Teams Family Dinner Service Specialist Relationship Specialty Start Date End Date Md Garcia MD PCP - General 08/16/10 01/17/12 [place] [address] documented as of this encounter
--- OUTSIDE RECORDS SUMMARY | 2022-04-22 14:06 | XMS_ITS | Encounter Summary ---
:1965 Author [facility] Address [address] [place] [address] Care Team Providers Name Role Phone Md GEOVANNY Garcia Primary Care Provider Encounter Details Date Type Department Care Team Description 05/21/2009 Office Visit [facility] Germaine Chilel I, [address] [facility] [address] [address] [facility] [phone] [place], [place] [phone] (Wo rk) Social History Tobacco Use Types Packs/Day Years Used Date Smoking Tobacco: Never Assessed Sex Assigned at Date Recorded Not on file documented as of this encounter Last Filed Vital Signs Vital Sign Reading Time Taken Comments Blood Pressure 128/86 05/21/2009 11:08 AM C: [employer] Pulse 80 05/21/2009 10:36 AM [employer] Temperature - - Respiratory Rate - - Oxygen Saturation - - Inhaled Oxygen Concentration - - Weight 120.2 kg (264 lb 15.9 05/21/2009 10:36 AM C: 120 .2kg oz) [employer] Height - - Body Mass Index 41.5 06/06/2008 9:50 AM [employer] documented in this encounter Progress Notes Germaine Lopez - 05/21/2009 12:01 AM CST Progress Notes signed by Germaine Lopez MD at 05/28/09 [id number] Author: Germaine Lopez MD Service: (none) Author Type: Physician Filed: 04/07/04 Note Time: 05/21/09 0001 Status: Signed Office Messenger: Germaine Lopez MD (Physician) NAME: MARCELO BECK MR#: [id number] ACCT: [id number] VISIT: [id number] DICTATING CLINICIAN: Germaine Lopez MD CONFIRM #: [id number] LOC: 1202 CLINIC PROGRESS NOTE DATE OF VISIT: 05/21/2009 SUBJECTIVE: : 1965. Marcelo is a 43-year-old woman who comes in for a diabetic check. Her blood pressure is quite high today. Her A1c has been good. She is on metformin XR. And she finds taking 1 in the morning 1 at night increases the tolerability, but she has diarrhea when she tries to increase the dose. She has an eye appointment next Tuesday. She is taking an aspirin. We reviewed her lipid panel, and she is up-to-date with her urine for microalbumin. PAST MEDICAL HISTORY: Reviewed. MEDICATIONS: Reviewed. ADR/ALLERGIES: REVIEWED AND UPDATED IN LASTWORD. REVIEW OF SYSTEMS: Otherwise negative except for those stated above. OBJECTIVE: VS: Reviewed in LastWord. BP2: 144/100. GENERAL: She is in no acute distress. HEENT: Normocephalic, atraumatic. TMs clear. PERRL. Oropharynx with no erythema. NECK: Supple with no lymphadenopathy or thyromegaly. CARDIOVASCULAR: Regular rate and rhythm without murmur, gallop, or rub. LUNGS: Clear to auscultation bilaterally. ABDOMEN: Obese. EXTREMITIES: No clubbing, cyanosis, or edema. ASSESSMENT: 1. Type 2 diabetes mellitus, which has been under good control. Will check a fasting glucose and an A1c today. 2. Elevated blood pressures. I would like to start her on lisinopril 10 mg once a day. I have asked her to check her blood pressures periodically and bring those in at her next visit. Certainly, she should return sooner if she is not able to tolerate her medications or if there are any other problems. 3. Hyperlipidemia. Her LDL is under 100 but her HDL is low and her triglycerides are high, and we talked about that and whether or not she would benefit by a diet and exercise program. We talked about a tentative weight loss goal over the next few months. If she needs further help with that, she will come in separately just for that, should she need that. PLAN: See Assessment. PIF:[id number] C: 05/21/09 14:21 CONFIRM #: [id number] [employer] documented in this encounter Plan of Treatment Upcoming Encounters Date Type Specialty Care Team Description 06/15/2022 Appointment Orthopedics Vanna Ulloa MD [address] [place] [address] (Wo rk) documented as of this encounter Visit Diagnoses Not on filedocumented in this encounter Care Teams Hand Ornament Maker Relationship Specialty Start Date End Date Md Jose, MD PCP - General 08/16/10 01/17/12 [place] [address] documented as of this encounter
--- OUTSIDE RECORDS SUMMARY | 2022-04-22 14:06 | XMS_ITS | Encounter Summary ---
:1965 Author Organization [facility] Address [address] [place] [address] Care Team Providers Name Role Phone Md GEOVANNY Garcia Primary Care Provider Reason for Visit Reason Comments Refill Encounter Details Date Type Department Care Team Description 05/05/2011 Refill [facility] Jelani Carlin MD Refill [address] [facility] [place] [address] [place], [place] [phone] (Wo rk) Social History Tobacco Use Types Packs/Day Years Used Date Smoking Tobacco: Never Assessed Sex Assigned at Date Recorded Not on file documented as of this encounter Nursing Notes Asya Abdi RN - 05/06/2011 9:18 AM CST See other note, VM left for pt Sridevi Mistry HUC - 05/05/2011 5:31 PM CST Last seen by Luz Craig in August and was instructed to follow up in 1 month. Please have patient schedule appointment with new clinician for labs and future refills. UBER Mian Tony MD - 05/05/2011 5:08 PM CST 1 refill and need appt UBER Lyndsay Johnson RN - 05/05/2011 3:43 PM CST UNABLE TO REFILL PER MEDICAL REFILL PROTOCOL Comment: last hgb a1c 05/2009, to clinician per distribution documented in this encounter Plan of Treatment Upcoming Encounters Date Type Specialty Care Team Description 06/15/2022 Appointment Orthopedics Vanna Ulloa MD [address] [place], [place] [phone] (Wo rk) documented as of this encounter Visit Diagnoses Not on filedocumented in this encounter Care Teams Design Checker Relationship Specialty Start Date End Date Md Garcia MD PCP - General 08/16/10 01/17/12 [place] [address] documented as of this encounter
--- OUTSIDE RECORDS SUMMARY | 2022-04-22 14:06 | XMS_ITS | Encounter Summary ---
:1965 Author [facility] Address [address] [place] [address] Care Team Providers Name Role Phone Md GEOVANNY Garcia Primary Care Provider Reason for Visit Reason Comments Other Encounter Details Date Type Department Care Team Description 02/01/2009 Telephone [facility] Kellee Bonner RN Other [address] [facility] [place] [address] Social History Tobacco Use Types Packs/Day Years Used Date Smoking Tobacco: Never Assessed Sex Assigned at Date Recorded Not on file documented as of this encounter Progress Notes Kellee Bonner RN - 02/01/2009 8:43 PM CDT Phone Note filed by Kellee Bonner RN at 09/04/10 1230 Author: Kellee Bonner RN Service: (none) Author Type: Registered Nurse Filed: 09/04/10 1230 Note Time: 02/01/092042 Status: Signed Cement Mason: Kellee Bonner RN (Registered Nurse) CLINICIAN FOLLOW-UP: none IMPRESSION: Bee or Yellow Jacket Sting. SYMPTOMS: Patient calling. She was stung by a bee on the hand. Describes as, stabbing pain. Relieving factors include ice, baking soda and water paste. Patient asks home care advise. Reviewed. CARE ADVICE: Bee Sting- Cat Guidelines- Reviewed recommendations #1-7. PLAN: Home care. Advised to call back if any of the following occur: symptoms worsen or persist, any other questions or concerns. Patient/Caller agrees with plan and denies additional questions. References Used: Pediatric Telephone Protocols--Bee or Yellow Jacket Sting. *SH~BS~STINGS ~ Created on 01Feb2009 8:43pm by KELLEE BONNER HIATRIC SOCIAL WORKER documented in this encounter Plan of Treatment Upcoming Encounters Date Type Specialty Care Team Description 06/15/2022 Appointment Orthopedics Vanna Ulloa MD [address] [place] [address] (Wo rk) documented as of this encounter Visit Diagnoses Not on filedocumented in this encounter Care Teams Color Consultant Relationship Specialty Start Date End Date Md Garcia MD PCP - General 08/16/10 01/17/12 [place] [address] documented as of this encounter
--- OUTSIDE RECORDS SUMMARY | 2022-04-22 14:06 | XMS_ITS | Encounter Summary ---
:1965 Author Organization [facility] Address [address] [place] [address] Care Team Providers Name Role Phone Md GEOVANNY Garcia Primary Care Provider Reason for Visit Reason Comments Other Encounter Details Date Type Department Care Team Description 08/05/2009 Telephone [facility] Jelani Fish MD Other [address] [facility] . [address] [place] [address] [place], [place] [address] (Wo rk) Social History Tobacco Use Types Packs/Day Years Used Date Smoking Tobacco: Never Assessed Sex Assigned at Date Recorded Not on file documented as of this encounter Progress Notes Center, Message - 08/05/2009 9:37 AM CDT Phone Note filed by [employer] at 09/05/10302 Author: [employer] Service: (none) Author Type: (none) Filed: 09/05/10302 Note Time: 08/05/09936 Status: Signed Dispatcher Electric Power: [employer] (Resource) Lab/Radiology Results Caller Name/Relationship:nelly Hill Primary Brisket Puller: Dulce Lopez What test result is needed? MRI shoulder When and where was test done? 07/31/2009 at [facility] Who ordered the test? Dulce Lopez pt awaiting the results Barrel Tester: nelly Hill Best call back number:[phone] Is it OK to leave a confidential message on this voicemail? y *[id number] Created on 05Aug2009 9:37am by ARLINE MAHER On 05Aug2009 10:02am FRANK LEVIN wrote: forwarded to clinician On 05Aug2009 1:13pm JELANI FISH wrote: Results reviewed. 1. Mild to moderate distal supraspinatus tendinosis. No significant tearing of rotator cuff tendons. 2. Subacromial/subdeltoid bursal inflammation. 3. Increased signal within the superior to posterior-superior labrum suspicious for tearing. 4. Mild cartilage wear within glenohumeral joint. 5. Mild AC joint degenerative changes. There may be a tear within the joint, I would suggest follow up with orthopedics, Dr Lopez will be in tomorrow. Can provide referral if the pt would like, otherwise can wait until Dr Lopez is in. Acknowledged by JELANI FISH on 1:13pm On 05Aug2009 2:08pm SHAKIRA QUINONES wrote: Patient advised of above information. Would like referral sent to Orthopedics.Clinician sign off needed:Kris completed for ortho referral and brought to appt desk. Acknowledged by JELANI FISH on 5:09pm L SPAR OPERATOR documented in this encounter Plan of Treatment Upcoming Encounters Date Type Specialty Care Team Description 06/15/2022 Appointment [facility]oped[facility] [address] [facility] [address] (Wo rk) documented as of this encounter Visit Diagnoses Not on filedocumented in this encounter Care Teams Mortgage Loan Processing Clerk Relationship Specialty Start Date End Date Md Garcia MD PCP - General 08/16/10 01/17/12 [place] [address] documented as of this encounter
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
--- OUTSIDE RECORDS SUMMARY | 2022-04-22 14:06 | XMS_ITS | Encounter Summary ---
:1965 Author Organization [facility] Address [address] [facility] [place] [address] Care Team Providers Name Role Phone Md GEOVANNY Garcia Primary Care Provider Encounter Details Date Type Department Care Team Description 02/05/2009 PN Conversion Only [place] CONVERSION Germaine Chilel [address] [facility] [place] [address] [address] [facility] [place] [phone] (Wo rk) Social History Tobacco Use Types Packs/Day Years Used Date Smoking Tobacco: Never Assessed Sex Assigned at Date Recorded Not on file documented as of this encounter Plan of Treatment Upcoming Encounters Date Type Specialty Care Team Description 06/15/2022 Appointment Orthopedics Vanna Ulloa MD [address] [place], [place] [phone] (Wo rk) documented as of this encounter Procedures Procedure Name Priority Date/Time Associated Diagnosis Comme nts ALBUMIN/CREAT RATIO Routine 02/05/2009 12:41 PM R esults for this CDT procedure are i n the results section. HGB A1C Routine 02/05/2009 12:28 PM Results for this CDT procedure are i n the results section. GLUCOSE Routine 02/05/2009 12:27 PM Results for this CDT procedure are i n the results section. LIPID PANEL AND Routine 02/05/2009 12:27 PM Resul ts for this DIRECT LDL(IF CDT procedure are in NEEDED) the results section. ALT (SGPT) Routine 02/05/2009 12:27 PM Results for this CDT procedure are i n the results section. documented in this encounter Results Microalb/Creat Ratio (02/05/2009 12:41 PM CDT) Analysis Performed At Patho logist Time Signature U Creat Random 92 mg/dL HP CONVERSION Microalbumin <6.0 0.0 - 30.0 HP CONVERSION Urine mg/L Microalbumin/Crea <10 0.0 - 30.0 HP CONVERSI ON tinine Ratio mg/G Comment: Your result is normal because there is l ittle or no protein in the urine, usually indicating healthy kidneys. Specimen (Source) Anatomical Collection Method Collection Time Re ceived Time Location / / Volume Laterality 02/05/2009 12:41 PM CDT Germaine Chilel MD LAB_1 Performing Organization Address [facility] Phon e Number HP CONVERSION (ABNORMAL) Hgb A1c (02/05/2009 12:28 PM CDT) P athologist Signature HGB A1C 6.7 (H) <6.0 % HP CONVERSION Specimen (Source) Anatomical Collection Method Collection Time Re ceived Time Location / / Volume Laterality 02/05/2009 12:28 PM CDT Germaine Chilel MD LAB_1 Performing Organization Address City/[facility] Code Phon e Number HP CONVERSION (ABNORMAL) Lipid Panel and Direct LDL(If Needed) (02/05/2009 12:27 PM CDT) Patholo gist Method Time Signature Length Of Fast 12.0 Hours HP CONVERSION Cholesterol/HDL 5.5 No normal HP CONVERSION Ratio Screen range Cholesterol 194 <200 mg/dL HP CONVERSION HDL Cholesterol 35 (L) >40 mg/dL HP CONVERSION Triglycerides 299 (H) 0 - 149 HP CONVERSION mg/dL LDL Calculated 99 0 - 130 HP CONVERSION mg/dL Comment: Specimen (Source) Anatomical Collection Method Collection Time Re ceived Time Location / / Volume Laterality 02/05/2009 12:27 PM CDT Germaine Chilel MD LAB_1 Performing Organization Address City/[facility]/ZIP Code Phon e Number HP CONVERSION (ABNORMAL) GLUCOSE (02/05/2009 12:27 PM CDT) P athologist Signature Length Of Fast 12.0 Hours HP CONVERSION Lab Glucose 118 (H) 60 - 100 HP CONVERSION mg/dL Specimen (Source) Anatomical Collection Method Collection Time Re ceived Time Location / / Volume Laterality 02/05/2009 12:27 PM CDT Germaine Chilel MD LAB_1 Performing Organization Address City/[facility]/ZIP Code Phon e Number HP CONVERSION ALT (SGPT) (02/05/2009 12:27 PM CDT) Patholo gist Method Time Signature Alanine 34 4 - 55 HP CONVERSION Aminotransferase U/L Specimen (Source) Anatomical Collection Method Collection Time Re ceived Time Location / / Volume Laterality 02/05/2009 12:27 PM CDT Germaine Chilel MD LAB_1 Performing Organization Address City/[facility] Code Phon e Number HP CONVERSION documented in this encounter Visit Diagnoses Not on filedocumented in this encounter Care Teams Editor Managing Newspaper Relationship Specialty Start Date End Date Md Garcia MD PCP - General 08/16/10 01/17/12 [place] [address] documented as of this encounter
--- OUTSIDE RECORDS SUMMARY | 2022-04-22 14:06 | XMS_ITS | Encounter Summary ---
:1965 Author Organization [facility] Address [address] [place] [address] Care Team Providers Name Role Phone Md GEOVANNY Garcia Primary Care Provider Reason for Visit Reason Comments Other Encounter Details Date Type Department Care Team Description 03/05/2009 Telephone [facility], Message Other [address] [facility] [place] [address] Social History Tobacco Use Types Packs/Day Years Used Date Smoking Tobacco: Never Assessed Sex Assigned at Date Recorded Not on file documented as of this encounter Progress [facility], Message - 03/05/2009 2:07 PM CDT Phone Note filed by [employer]ive Sports at 09/04/10 1507 Author: [employer] Service: (none) Author Type: (none) Filed: 09/04/10 1506 Note Time: 03/05/09 1407 Status: Signed Interpersonal Communications Professor: [employer]ive [employer] (Resource) Front Line Sx Call Caller Name/Relationship:Liz-pt [employer] Psychometrist:Jessica Symptom or request?Pt requesting to start the Citalopram again. Is appointment scheduled & when?no Bench Grinder:Liz Best call back number:[phone] Is it OK to leave a confidential message on this voicemail?yes *ECODE~[email or web address] Created on 05Mar2009 2:07pm by CLAIRE ROJAS J On 05Mar2009 2:43pm SHAKIRA QUINONES wrote: MESSAGE TO CARE TEAM NAME OF CALLER:Liz, patient NAME OF CLINICIAN:Dulce Kendrick MESSAGE:Diallo advise. Patient is requesting an RX for Citalopram. Since being on the Chantix (about 2 weeks), the patient can't get going and says that all she wants to do is sleep. Has low energy level. States that last year when she was on Chantix, she was also on Citalopram and did not have the side effect of lack of energy. Was on Citalopram 20 mg 1 tab daily about 1 year ago. PHARMACY NAME:[facility] PHONE #: [place] CALL BACK PHONE OR CELL PHONE:[phone] BEST TIME TO CALL BACK:today IS IT OK TO LEAVE A CONFIDENTIAL MESSAGE ON THIS VOICEMAIL?yes *ECODE~PNMSG On 06Mar2009 5:13pm SHAKIRA DIALLO wrote: Faxed to [place] [facility] Acknowledged by SHAKIRA DIALLO on 5:13pm On 06Mar2009 5:23pm ATUL MAYERS wrote: gave pt. above info. Acknowledged by ATUL MAYERS on 5:23pm T OPERATOR documented in this encounter Plan of Treatment Upcoming Encounters Date Type Specialty Care Team Description 06/15/2022 Appointment Orthopedics Vanna Ulloa MD [address] [place] [address] (Wo rk) documented as of this encounter Visit Diagnoses Not on filedocumented in this encounter Care Teams Roof Fixer Relationship Specialty Start Date End Date Md Garcia MD PCP - General 08/16/10 01/17/12 [place] [address] documented as of this encounter
--- OUTSIDE RECORDS SUMMARY | 2022-04-22 14:06 | XMS_ITS | Encounter Summary ---
:1965 Author Organization [facility] Address [address] [address] Care Team Providers Name Role Phone Md GEOVANNY Garcia Primary Care Provider Encounter Details Date Type Department Care Team Description 06/29/2010 PN Conversion Only [place] CONVERSION Manan Ahumada, [address] [facility] [address] [address] [facility] [address] [place], [place] [address] (Wo rk) Social History Tobacco Use Types Packs/Day Years Used Date Smoking Tobacco: Never Assessed Sex Assigned at Date Recorded Not on file documented as of this encounter Plan of Treatment Upcoming Encounters Date Type Specialty Care Team Description 06/15/2022 Appointment Orthopedics Vanna Ulloa MD [address] [place], [place] [address] (Wo rk) documented as of this encounter Procedures Procedure Name Priority Date/Time Associated Comments Diagnosis ANATOMICAL PATH Routine 06/29/2010 3:37 PM Result s for this LIQUID BASED ELEVATOR ERECTOR HELPER procedure are i n the results section. documented in this encounter Results Pap Smear (06/29/2010 3:37 PM ELEVATOR ERECTOR HELPER) P athologist Signature Pap Smear SEE TEXT No normal HP CONVERSION range Comment: Final GYNECOLOGICAL CYTOLOGY REPORT Pathology #: [id number] ?Date Obta ined: 06/29/2010 ? Date Received: 06/30/2010 INTERPRETATION/RESULTS: Negative for Intraepithelial Lesion or M alignancy SPECIMEN ADEQUACY: Satisfactory for Evaluation. ??No endoce rvical cells/transformation zone component present. Verified on 07/01/2010 ??by MEGAN ALFARO(ASCP) (electronic signature) CLINICAL NOTES: ?LMP: 06/13/2010. SPECIMEN TYPE: ? CERVICAL WITH REFLEX TO HPV IF CUS ?* End of Report Specimen (Source) Anatomical Collection Method Collection Time Re ceived Time Location / / Volume Laterality 06/29/2010 3:37 PM ELEVATOR ERECTOR HELPER Manan Ahumada MD LAB_1 Performing Organization Address City/State/ZIP Code Phon e Number HP CONVERSION documented in this encounter Visit Diagnoses Not on filedocumented in this encounter Care Teams Garbage Truck Helper Relationship Specialty Start Date End Date Md Jose, PCP - General 08/16/10 01/17/12 [place] [address] documented as of this encounter
--- OUTSIDE RECORDS SUMMARY | 2022-04-22 14:06 | XMS_ITS | Encounter Summary ---
:1965 Author Organization [facility] Address [address] [place] [address] Care Team Providers Name Role Phone Md GEOVANNY Garcia Primary Care Provider Reason for Visit Reason Comments Questions Encounter Details Date Type Department Care Team Description 05/04/2011 Refill [place] [facility] Lesley Craig Questions [address] [facility] . [place] [id number] Social History Tobacco Use Types Packs/Day Years Used Date Smoking Tobacco: Never Assessed Sex Assigned at Date Recorded Not on file documented as of this encounter Nursing Notes Lyndsay Hurley MA - 05/11/2011 9:53 AM CST pt notified. will schedule appt for further refills. Shruti Beltre V - 05/10/2011 9:53 PM CST Please call patient to inform that I did Ok one month of the requested medications (see documenationon the last note) Rx was faxed to the requested pharmacy. Patient Needs to be seen for further refills. Olivia Martin RN - 05/04/2011 12:04 PM CST Last A1C 05/21/09---Last OV 4-5-11 and is documented to follow up in 3-4 weeks. No follow up. Unable to refill per protocol. To distribution jaki/Nusrat documented in this encounter Plan of Treatment Upcoming Encounters Date Type Specialty Care Team Description 06/15/2022 Appointment Orthopedics Vanna Ulloa MD [address] [facility] [place] [address] (Wo rk) documented as of this encounter Visit Diagnoses Not on filedocumented in this encounter Care Teams Cyber Analyst Relationship Specialty Start Date End Date Md Garcia MD PCP - General 08/16/10 01/17/12 [place] [address] documented as of this encounter
--- OUTSIDE RECORDS SUMMARY | 2022-04-22 14:06 | XMS_ITS | Encounter Summary ---
:1965 Author Organization [facility] Address [address] [place] [address] Care Team Providers Name Role Phone Md GEOVANNY Garcia Primary Care Provider Encounter Details Date Type Department Care Team Description 06/29/2010 Office Visit [place] 1515 Manan Ahumada MD Obstetrics/Gynecolog y [address] [facility] . [address] [place] [address] [place] [address] [phone] (Wo rk) Social History Tobacco Use Types Packs/Day Years Used Date Smoking Tobacco: Never Assessed Sex Assigned at Date Recorded Not on file documented as of this encounter Last Filed Vital Signs Vital Sign Reading Time Taken Comments Blood Pressure 140/74 06/29/2010 1:47 PM AUDIT PARTNER Pulse 68 06/29/2010 1:47 PM AUDIT PARTNER Temperature - - Respiratory Rate - - Oxygen Saturation - - Inhaled Oxygen Concentration - - Weight 125.2 kg (275 lb 15.9 06/29/2010 1:47 PM C: 125. 2kg oz) AUDIT PARTNER Height 169.5 cm (5' 6.75) 06/29/2010 1:47 PM C: 169.5c m AUDIT PARTNER Body Mass Index 43.55 06/29/2010 1:47 PM AUDIT PARTNER documented in this encounter Progress Notes Manan Ahumada MD - 06/29/2010 12:01 AM CST Clinic Visit: Annual Exam SUBJECTIVE: Patient is a 44 year old P 3023, LMP 06/13/10, using tubal ligation for contraception, here today for an annual exam. For the last 5-6 cycles, she has had dysmenorrhea, which is not progressively worsening, although she states that with her last menses the pain was a little bit more severe than the prior menses. She denies heavy flow. There was partial relief of her symptoms with use of ibuprofen. Since her last visit with us, she has quit smoking, however, she is not necessarily interested in using OCPs at this time. Past medical history is significant for: Depression, diabetes, reflux, obesity, wisdom tooth extraction, tubal ligation. Family history is significant for: Cancer and diabetes in her mother. Alzheimer's, cancer, and diabetes in grandparents. Current medications and allergies: reviewed in Lastword Social history: She is . 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 She denies tobacco or drug use. Uses alcohol in moderation. She does not exercise regularly, wears a seatbelt, does do a breast self exam. OBJECTIVE: Ht. 66.75 in. Wt. 276 lbs. BMI 43.5 kg/m2 BP 140/74 Examination is performed with a nurse present in the room. CHEST is clear to auscultation. HEART has a regular rate and rhythm, normal S1S2, no murmurs. BREASTS are without masses or discharge bilaterally. The axillae are without masses. ABDOMEN is obese, soft, non-tender, without masses. EXTREMITIES are without cords or edema. PELVIC: external genitalia, urethra and vagina are without lesions. Cervix appears parous, without lesions. PAP smear is obtained. On bimanual exam, uterus is normal size and anterior. No adnexal masses are noted These findings are confirmed bimanual rectovaginal exam, there is normal sphincter tone ASSESSMENT: Normal annual exam Dysmenorrhea Obesity Diabetes PLAN: will notify patient of PAP results when available. We discussed the names of some providers in our family medicine Department to manage her other medical problems, as her primary care provider has recently left the clinic. She will schedule a mammogram. She will return in one year for an annual exam, sooner PRN. *SH~DNS~CUSTOM T PARTNER documented in this encounter Plan of Treatment Upcoming Encounters Date Type Specialty Care Team Description 06/15/2022 Appointment [facility] [address] [facility] [address] (Wo rk) documented as of this encounter Visit Diagnoses Not on filedocumented in this encounter Care Teams Accountant Property Relationship Specialty Start Date End Date Md Garcia MD PCP - General 08/16/10 01/17/12 [place] [address] documented as of this encounter
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
--- OUTSIDE RECORDS SUMMARY | 2022-04-22 14:06 | XMS_ITS | Encounter Summary ---
:1965 Author Organization [facility] Address [address] [place] [address] Care Team Providers Name Role Phone Md GEOVANNY Garcia Primary Care Provider Encounter Details Date Type Department Care Team Description 09/12/2010 [facility] WorkcrossFrieda , Medicine PA-C [address] [place] [address] [place] [address] [phone] (Wo rk) Social History Tobacco Use Types Packs/Day Years Used Date Smoking Tobacco: Never Assessed Sex Assigned at Date Recorded Not on file documented as of this encounter Plan of Treatment Upcoming Encounters Date Type Specialty Care Team Description 06/15/2022 Appointment Orthopedics Vanna Ulloa MD [address] [place], [place] [address] (Wo rk) documented as of this encounter Visit Diagnoses Not on filedocumented in this encounter Care Teams Reaming Machine Operator Relationship Specialty Start Date End Date Md Garcia MD PCP - General 08/16/10 01/17/12 [place], [place] [address] documented as of this encounter
--- OUTSIDE RECORDS SUMMARY | 2022-04-22 14:06 | XMS_ITS | Encounter Summary ---
:1965 Author Organization [facility] Address [address] [place] [address] Care Team Providers Name Role Phone Md GEOVANNY Garcia Primary Care Provider Encounter Details Date Type Department Care Team Description [facility]/2009 [facility] Frieda Shoemaker PA-C [address] [place] [address] [address] [phone] [place], [place] [address] (Wo rk) Social History Tobacco Use Types Packs/Day Years Used Date Smoking Tobacco: Never Assessed Sex Assigned at Date Recorded Not on file documented as of this encounter Last Filed Vital Signs Vital Sign Reading Time Taken Comments Blood Pressure 126/76 04/25/2009 4:29 PM CARPENTRY TEACHER Pulse 80 04/25/2009 4:29 PM CARPENTRY TEACHER Temperature - - Respiratory Rate - - Oxygen Saturation - - Inhaled Oxygen Concentration - - Weight 121.6 kg (267 lb 15.9 04/25/2009 4:29 PM C: 121. 6kg oz) CARPENTRY TEACHER Height - - Body Mass Index 41.97 06/06/2008 9:50 AM CARPENTRY TEACHER documented in this encounter Progress Notes Frieda Shoemaker PA-C - 04/25/2009 12:01 AM CST Progress Notes signed by Frieda Shoemaker PA-C at 04/25/09 7566 Author: Frieda Shoemaker PA-C Service: (none) Author Type: Physician Resource Room Special Education Teacher Filed: 09/05/10 4154 Note Time: 04/25/09 0001 Status: Signed Gasoline Locomotive Crane Operator: Frieda Shoemaker PA-C (Resource) SUBJECTIVE: Left heel pain and infection around toenail on the right great toe. 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 She started having left heel pain about one week ago. At first it was just bothering her in the evening when she was sitting. Now it is present all day, and is worse at night. She bought new shoes about 4 days ago, and that seems to have made it worse. She wears well-padded work shoes with a 1/2 inch heel. She had not replaced her work shoes for over a year, and the padding was quite compressed. She doesn't like to wear shoes in the summer, and had been going barefoot a lot. She denies any specific injury and denies any history of similar type pain. She walks quite a distance from the parking lot into work and back. She works 2 - 5 days per week. About two weeks ago, she noticed soreness and some purulent drainage from the lateral side of her right great toenail. She has been soaking it in warm water with Epsom salts once a day. She denies any pain. She hasn't trimmed her nails back too far.She has no history of infection around her toenails. She has type 2 DM. Adverse Drug Reactions: See medication List in LastWord. Medications: Reviewed. See Medication List in LastWord. OBJECTIVE: Vital Signs : Reviewed; See Flowsheet Charting in LastWord. General: Pleasant, overweight 43-year-old woman, NAD. She is tender to palpation in the left heel plantar mid calcaneus. There is no redness, callus, swelling, warmth. She has no metatarsal tenderness or arch tenderness. Her DP pulses 1+ and sensation is intact to light touch. She has full range of motion at her ankle. She is walking without a limp. She has a small amount of dried discharge on the lateral border of her right great toenail. The nail is cut straight across it does not appear to be ingrown. X-ray of her left heel shows traction spurs of the calcaneus and the Achilles. ASSESSMENT: 1. Left heel pain: She was advised on using ibuprofen 600 mg t.i.d. x 7 days. She will avoid going barefoot, always wear good, well-padded shoes. She will try to avoid any high impact activities until her pain resolves. She was given a prescription for physical therapy for modalities and possible evaluation for an shoe orthotics if her pain does not improve within the next two to 3 weeks. 2. Paronychia right great toenail. She is given a prescription for cephalexin 500 mg t.i.d. x 10 days. She will continue soaking her foot in warm water with Epsom salts. Return to the clinic for partial toenail removal if it doesn't resolve within the next two weeks. PLAN: The patient was discharged ambulatory and in stable condition. *SH~DNS~SOAP ENTRY TEACHER documented in this encounter Plan of Treatment Upcoming Encounters Date Type Specialty Care Team Description 06/15/2022 Appointment Orthopedics Vanna Ulloa MD [address] [place] [address] (Wo rk) documented as of this encounter Procedures Procedure Name Priority Date/Time Associated Diagnosis Comme nts XR CALCANEUS LT 2+ Routine 04/25/2009 4:54 PM Res ults for this VIEWS CARPENTRY TEACHER procedure are i n the results section. documented in this encounter Results XR Calcaneus Lt 2+ Views (04/25/2009 4:54 PM CARPENTRY TEACHER) Anatomical Region Laterality Modality Lower Extremity, Foot, Foot & Ankle Othe r Specimen (Source) Anatomical Location Collection Method / Collectio n Time Received Time / Laterality Volume Narrative 04/25/2009 4:54 PM CARPENTRY TEACHER No fracture or acute change. ??Both posterior and inferior calcaneal osteophytes are noted. Dictating BARTOLOME CAREY RADIOLOGIST Procedure Note Bartolome Sevilla - 10/30/2015 No fracture or acute change. Both workforce planner ior and inferior calcaneal osteophytes are noted. Dictating BARTOLOME CAREY RADIOLOGIST Frieda Shoemaker PA-C RAD GD documented in this encounter Visit Diagnoses Not on filedocumented in this encounter Care Teams Physical Science Professor Relationship Specialty Start Date End Date Md Garcia MD PCP - General 08/16/10 01/17/12 [place] [address] documented as of this encounter
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
--- OUTSIDE RECORDS SUMMARY | 2022-04-22 14:06 | XMS_ITS | Encounter Summary ---
:1965 Author Organization [facility] Address [address] [place] [address] Care Team Providers Name Role Phone Md GEOVANNY Garcia Primary Care Provider Reason for Visit Reason Comments Other Encounter Details Date Type Department Care Team Description 12/25/2009 Telephone [facility], Message Other [address] [facility] . [place], [place] [address] Social History Tobacco Use Types Packs/Day Years Used Date Smoking Tobacco: Never Assessed Sex Assigned at Date Recorded Not on file documented as of this encounter Progress Notes Latonya Magallanes LPN - 12/25/2009 8:32 AM CDT Phone Note filed by Latonya Navarro at 09/05/10 0279 Author: Latonya Navarro Service: (none) Author Type: (none) Filed: 09/05/101458 Note Time: 12/25/0932 Status: Signed Lane Attendant: Cesar Sher (Physician) Lmtcb pt is on Dr. Vines DM list we need to know which DrThiago she plans on following with for her Diabetes Created on 25Dec2009 8:32am by LATONYA NAVARRO On 25Dec2009 3:25pm BINH ALMANZAR wrote: Pt returning call. On 25Dec2009 3:38pm YOANA HAN wrote: Patient calling back Changing to [facility] for diabetic care Appt made for 01/07 Will be fasting for appt PERFORMANCE SUPPORT ANALYST documented in this encounter Plan of Treatment Upcoming Encounters Date Type Specialty Care Team Description 06/15/2022 Appointment Orthopedics Vanna Ulloa MD [address] [facility] [place] [address] (Wo rk) documented as of this encounter Visit Diagnoses Not on filedocumented in this encounter Care Teams Hard Tile Setter Relationship Specialty Start Date End Date Md Garcia MD PCP - General 08/16/10 01/17/12 [place], [place] [address] documented as of this encounter
--- OUTSIDE RECORDS SUMMARY | 2022-04-22 14:06 | XMS_ITS | Encounter Summary ---
:1965 Author Organization [facility] Address [address] [place] [address] Care Team Providers Name Role Phone Md GEOVANNY Garcia Primary Care Provider Reason for Visit Reason Comments Other Encounter Details Date Type Department Care Team Description 07/05/2008 Telephone [facility] Germaine Chilel MD Other 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: [employer] Medication Issue/Refill Caller Name/Relationship:Albert Primary Locker Room Attendant:kerwin Patient has contacted Pharmacy (yes/no):no Comments:pharmacist calling re quantity Pharmacy Name & Phone #:[phone] or City:[facility] Drug Name:Metformin Strength:500 Dose/Route/Freq:has question [employer] School Counselor:Scotty Yu call back number:[phone] Is it OK to leave a confidential message on this voicemail?yes Created on 05Jul2008 11:59am by CLAIRE ROJAS On 05Jul2008 12:02pm DONTECOOKIEBERNARDINO wrote: Please call pharmacy at above number-they would like to adjust quantity prescribed. On 05Jul2008 5:30pm GERMAINE DIALLO wrote: called Acknowledged by GERMAINE DIALLO on 5:30pm RAIL OPERATOR documented in this encounter Plan of Treatment Upcoming Encounters Date Type Specialty Care Team Description 06/15/2022 Appointment Orthopedics Vanna Ulloa MD [address] [place] [address] (Wo rk) documented as of this encounter Visit Diagnoses Not on filedocumented in this encounter Care Teams Construction Operations Manager Relationship Specialty Start Date End Date Md Garcia MD PCP - General 08/16/10 01/17/12 [place], [place] [address] documented as of this encounter
--- OUTSIDE RECORDS SUMMARY | 2022-04-22 14:06 | XMS_ITS | Encounter Summary ---
:1965 Author Organization [facility] Address [address] [place] [address] Care Team Providers Name Role Phone Md GEOVANNY Garcia Primary Care Provider Reason for Visit Reason Comments Other Encounter Details Date Type Department Care Team Description 02/05/2009 Telephone [facility], Message Other [address] [facility] [place] [address] Social History Tobacco Use Types Packs/Day Years Used Date Smoking Tobacco: Never Assessed Sex Assigned at Date Recorded Not on file documented as of this encounter Progress Notes Center, Message - 02/05/2009 2:11 PM CDT Phone Note filed by [employer] at 09/04/10 1250 Author: [employer] Service: (none) Author Type: (none) Filed: 09/04/10 1250 Note Time: 02/05/09 1411 Status: Signed Scallop Shucker: [employer] (Resource) Non -Symptom Message from Front Line Caller Name/Relationship:Tg from [facility] Primary Diagnostic Sales Specialist:Jessica Message:Directions are needed for test strips and need to verify quantity. Wool Shearer:Tg Best call back number:[phone] Is it OK to leave a confidential message on this voicemail? Y *ECODE~[id number] Created on 05Feb2009 2:11pm by STEPHY MCKEON R On 05Feb2009 2:18pm YOANA HAN wrote: Pharmacy calling for frequency that test strips are used daily Checked with patient who states One Touch Ultra Meter not covered by insurance Previously has Tisha Contour meter Needs new orders for meter,test strips(using 3-4 x/day) and lancets to [facility] [place] If questions can reach patient at [phone] On 05Feb2009 2:22pm SHAKIRA DIALLO wrote: Please call these in to [facility] pharmacy and give #[phone] test strip. Acknowledged by SHAKIRA DIALLO on 2:22pm On 05Feb2009 5:04pm ATUL MAYERS wrote: called with above info. Acknowledged by ATUL MAYERS on 5:04pm ERING MACHINE TENDER documented in this encounter Plan of Treatment Upcoming Encounters Date Type Specialty Care Team Description 06/15/2022 Appointment Orthopedics Vanna Ulloa MD [address] [facility] [place] [address] (Wo rk) documented as of this encounter Visit Diagnoses Not on filedocumented in this encounter Care Teams Tandem Mill Roller Relationship Specialty Start Date End Date Md Garcia MD PCP - General 08/16/10 01/17/12 [place] [place] [address] documented as of this encounter
--- OUTSIDE RECORDS SUMMARY | 2022-04-22 14:06 | XMS_ITS | Encounter Summary ---
:1965 Author Organization [facility] Address [address] [place] [address] Care Team Providers Name Role Phone Md GEOVANNY Garcia Primary Care Provider Reason for Visit Reason Comments Other Encounter Details Date Type Department Care Team Description 03/10/2009 Telephone [facility], Message Other [address] [facility] [place] [address] Social History Tobacco Use Types Packs/Day Years Used Date Smoking Tobacco: Never Assessed Sex Assigned at Date Recorded Not on file documented as of this encounter [facility], Message - 03/10/2009 1:32 PM CDT Phone Note filed by Boomi at 09/04/10 1526 Author: Boomi Service: (none) Author Type: (none) Filed: 09/04/10 1526 Note Time: 03/10/09 1332 Status: Signed Credit Associate: Boomi (Resource) Front Line Sx Call Caller Name/Relationship:Liz-pt Primary Pole Shaver Helper:Jessica Symptom or request?Pt would like to discuss diabetes symptoms with Dr. Diallo./ Is appointment scheduled & when?No Window Trimmer:Lizmariela Yu call back number:[phone] or cell [phone] Is it OK to leave a confidential message on this voicemail?yes *ECODE~PNSX2 Created on 10Mar2009 1:32pm by CLAIRE ROJAS J On 10Mar2009 2:15pm ANGELICA LISA Moser wrote: Pt would like Rx for the One Touch Ultra Smart Meter, test strips (150 at a time) and the lancets. Her insurance does not cover this but she got a coupon at the [employer] for a free meter. Fax Rx's to [facility] in [place]. Ok for Tuesday. On 12Mar2009 1:07pm SHAKIRA DIALLO wrote: Meter faxed. call in test strips (150 with 6 refills) and lancets to [facility] in [place] Acknowledged by SHAKIRA DIALLO on 1:07pm On 12Mar2009 2:20pm ATUL MAYERS wrote: called pharmacy with above info. Acknowledged by ATUL MAYERS on 2:20pm PER documented in this encounter Plan of Treatment Upcoming Encounters Date Type Specialty Care Team Description 06/15/2022 Appointment Orthopedics Vanna Ulloa MD [address] [facility] [place] [id number] (Wo rk) documented as of this encounter Visit Diagnoses Not on filedocumented in this encounter Care Teams Traffic Safety Administrator Relationship Specialty Start Date End Date Md Garcia MD PCP - General 08/16/10 01/17/12 [facility] [place] [address] documented as of this encounter
--- OUTSIDE RECORDS SUMMARY | 2022-04-22 14:06 | XMS_ITS | Encounter Summary ---
:1965 Author Organization [facility] Address [address] [place] [address] Care Team Providers Name Role Phone Md GEOVANNY Garcia Primary Care Provider Encounter Details Date Type Department Care Team Description 08/18/2010 Office Visit [facility] Lesley Craig [address] [facility] [place] [address] Social History Tobacco Use Types Packs/Day Years Used Date Smoking Tobacco: Never Assessed Sex Assigned at Date Recorded Not on file documented as of this encounter Last Filed Vital Signs Vital Sign Reading Time Taken Comments Blood Pressure 141/95 08/18/2010 1:56 PM CDT Pulse 91 08/18/2010 1:56 PM CDT Temperature - - Respiratory Rate - - Oxygen Saturation - - Inhaled Oxygen Concentration - - Weight 122.9 kg (270 lb 15.8 08/18/2010 1:56 PM C: 122. 9kg oz) CDT Height - - Body Mass Index 42.76 06/29/2010 1:47 PM SECURITY SALES CONSULTANT documented in this encounter Progress Notes Lesley Craig, WILL CALL CLERK, SEAM CHECKER - 08/18/2010 12:01 AM CDT SUBJECTIVE: Patient is a 44-year-old here today for followup of chronic health problems, including depression, under poor control, type 2 diabetes, hyperlipidemia, obesity, hypertension. This is my first time meeting the patient. She had not taken medication since February. She, states she's checking her blood sugars a few times a week and they are in the mid to low 200s. She is also asking for ilzl-ulz-hkifqhn medications for Prilosec, ibuprofen, aspirin, Mucinex, she takes these for reflux, body aches, headaches, allergy symptoms, and aspirin for diabetes She needs refills of all of her medications. Recent blood work done at [facility] show cholesterol of 212, glucose 294, HDL and LDL unable to calculate because of triglycerides greater than 500, elevated, SGOT, and the A1c of 10.9, GFR greater than 60. Sodium 133, normal total bilirubin and total protein TSH 2.8, hemoglobin 15.4, with normal indices. Her depression symptoms have been worse the last 5 months. She has taken Celexa in the past, which was not helpful. She has not seen her therapist in a month when she had been going for 4 months, she found that this was somewhat helpful. There is family history of depression on her father's side. She is uncertain as to the health on her mom's side, she knows that her father and brother and paternal grand father had/have issues with depression She drinks beer or derek 2 times a month and on those times. She may have one to 6 drinks. Denies drug or tobacco use. 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 OBJECTIVE: Vital Signs : Reviewed; See Flowsheet Charting in LastWord. MENTAL STATUS EXAMINATION Physical appearance: healthy, normal build Dress: appropriate casual attire Grooming and hygiene: good Behavior/manner: pleasant and cooperative Motor activity: calm Affect: neutral quality, appropriate range Content of thought: no problem Judgment: normal Insight: normal Speech: normal (well-modulated, articulate, normal tone and speed) Thought process: normal Orientation: oriented to time, person, place, situation Vocabulary: average Concentration: normal PHQ 9 score is 20 with 3 being recorded in the areas of trouble with sleep, over eating, feeling bad about herself, trouble concentrating ASSESSMENT: 1. Type 2 diabetes under poor control , 2. Major depression, recurrent, severe , 3. Hypertension . 4. Hyperlipidemia 5. Reflux 6. Seasonal allergies PLAN: Prescription was given for Zoloft, begin with 25 mg p.o. q. day, and after 6 days, increase to 50 mg, potential side effects were reviewed, she will call me if questions or concerns and follow up with me in clinic in 3-4 weeks' time. Prescription was given for Flonase, Prilosec, Mucinex, ibuprofen, metformin, and lisinopril. Discuss with patient the importance of taking her medications on a regular basis. Times and targets for blood sugar testing were reviewed, and I've asked that she bring her record book in with her at next visit The patient was discharged ambulatory and in stable condition. Total time 40 minutes counseling time 25 minutes *SH~DNS~SOAP documented in this encounter Plan of Treatment Upcoming Encounters Date Type Specialty Care Team Description 06/15/2022 Appointment Orthopedics Vanna Ulloa MD [address] [facility] [place] [facility] [place] [address] (Wo rk) documented as of this encounter Visit Diagnoses Not on filedocumented in this encounter Care Teams Hurl Shaker Relationship Specialty Start Date End Date Md Garcia MD PCP - General 08/16/10 01/17/12 [place] [address] documented as of this encounter
--- OUTSIDE RECORDS SUMMARY | 2022-04-22 14:06 | XMS_ITS | Encounter Summary ---
:1965 Author Organization [facility] Address [address] [place] [address] Care Team Providers Name Role Phone Md GEOVANNY Garcia Primary Care Provider Reason for Visit Reason Comments Other Encounter Details Date Type Department Care Team Description 07/31/2009 Telephone [facility], Message Other [address] [facility] . [place], [place] [address] Social History Tobacco Use Types Packs/Day Years Used Date Smoking Tobacco: Never Assessed Sex Assigned at Date Recorded Not on file documented as of this encounter [facility], Message - 07/31/2009 9:05 AM CDT Phone Note filed by Bulb at 09/05/10240 Author: Bulb Service: (none) Author Type: (none) Filed: 09/05/10240 Note Time: 07/31/09904 Status: Signed Inside Sales Associate: Bulb (Resource) Lab/Radiology Requests Caller Name/Relationship:nelly Hill Primary Trustee Of Estate:Jessica What test is needed and when? Pt has an MRI this am and wants to get a sedation order for the MRI. Why is test needed/requested? Pt requesting *If symptom related, send to triage Automobile Mechanic Assistant:nelly Hill Best call back number:[phone] Is it OK to leave a confidential message on this voicemail? Y *ECODE~[id number] Created on 31Jul2009 9:05am by BOB LI K On 31Jul2009 9:14am FRANK LEVIN wrote: to clinician:Pt has MRI at [facility] today at 1100. Wanting rx for anxiety and claustrophobia. Man Holder #[id number]. Inform pt at above. On 31Jul2009 12:58pm SHAKIRA DIALLO wrote: Not able to get med. in before MRI Acknowledged by SHAKIRA DIALLO on 12:58pm Acknowledged by ATUL MAYERS on 1:14pm E INSTALLER REPAIRER HELPER documented in this encounter Plan of Treatment Upcoming Encounters Date Type Specialty Care Team Description 06/15/2022 Appointment Orthopedics Vanna Ulloa MD [address] [facility] [place] [address] (Wo rk) documented as of this encounter Visit Diagnoses Not on filedocumented in this encounter Care Teams Dental Claims Processor Relationship Specialty Start Date End Date Md Garcia MD PCP - General 08/16/10 01/17/12 [facility] [place] [address] documented as of this encounter
--- OUTSIDE RECORDS SUMMARY | 2022-04-22 14:06 | XMS_ITS | Encounter Summary ---
:1965 Author [facility] Address [address] [place] [address] Care Team Providers Name Role Phone Md GEOVANNY Garcia Primary Care Provider Encounter Details Date Type Department Care Team Description 06/29/2010 Rn Bone Marrow Transplant Only [place] [address] Manan Ahumada, Obstetrics/Gynecolog y [address] [place] [address] [address] [place], [place] [address] (Wo rk) Social History Tobacco Use Types Packs/Day Years Used Date Smoking Tobacco: Never Assessed Sex Assigned at Date Recorded Not on file documented as of this encounter Progress Notes Manan Ahumada MD - 06/29/2010 12:01 AM CST Addendum to note of 06/29/10: Options for management of the dysmenorrhea were discussed. For now, she will use ibuprofen on a scheduled basis, beginning before her menses starts. If this does not adequately manage the problem, she may consider OCPs. UITMENT AND OUTREACH ASSISTANT documented in this encounter Plan of Treatment Upcoming Encounters Date Type Specialty Care Team Description 06/15/2022 Appointment Orthopedics Vanna Ulloa MD [address] [place], [place] [address] (Wo rk) documented as of this encounter Visit Diagnoses Not on filedocumented in this encounter Care Teams Perpetual Inventory Clerk Relationship Specialty Start Date End Date Md Garcia MD PCP - General 08/16/10 01/17/12 [place] [address] documented as of this encounter
--- OUTSIDE RECORDS SUMMARY | 2022-04-22 14:06 | XMS_ITS | Encounter Summary ---
:1965 Author Organization [facility] Address [address] [place] [address] Care Team Providers Name Role Phone Md GEOVANNY Garcia Primary Care Provider Reason for Visit Reason Comments Other Encounter Details Date Type Department Care Team Description 04/25/2009 Telephone [facility] Germaine Chilel MD Other [address] [facility] [place] [address] [place] [address] [phone] (Wo rk) Social History Tobacco Use Types Packs/Day Years Used Date Smoking Tobacco: Never Assessed Sex Assigned at Date Recorded Not on file documented as of this encounter [facility], Message - 04/25/2009 11:34 AM CST Phone Note filed by Stio at 09/04/101912 Author: Stio Service: (none) Author Type: (none) Filed: 09/04/101912 Note Time: 04/25/091133 Status: Signed Laundry Operator: Stio (Resource) Front Line Sx Call Caller Name/Relationship:Liz/nelly Primary Roadway Engineer: Symptom or request?Call Dropped! Pt stated she has a concern with her foot and has diabetes. She adds it has been bothering her for a few days and was asking about a possible work-in after 4pm this afternoon. Update-pt called back and gave us the phone number to reach her at. Please leave message on her cell. Is appointment scheduled & when?no Welder Metal Fab:Liz/nelly Best call back number:[phone] cell Is it OK to leave a confidential message on this voicemail?yes *ECODE~PNSX2 Created on 25Apr2009 11:34am by ARLINE WILSON On 25Apr2009 11:49am RANDY ESTEBAN wrote: called pt and [place] [phone]. [place] apt available in [place] but pt can be seen in [place]. Need more info first before making apt. On 28Apr2009 8:11am RANDY ESTEBAN wrote: called and Ml for [place] [phone]. If no return call, message will be closed. On 28Apr2009 9:15am BYRON LOPEZ wrote: Spoke with pt. She would like Dr. Diallo to know that she was seen on 04/25 and diagnosed with bone spurs. Also, pt states that she needs Dr. Diallo to check her medication. She states that pharmacy will not refill medication because she is taking 40 mg Citolopram daily and the prescription reads to take 20mg q day. Please clarify dosage that pt should be taking. Pt states that she always taken 40mg. ok for 04/30 On 30Apr2009 12:49pm GERMAINE DIALLO wrote: Celexa Rx phoned in at the 40mg/d dose Acknowledged by GERMAINE DIALLO on 12:49pm Acknowledged by GERMAINE DIALLO on 12:49pm ING STRATEGIST documented in this encounter Plan of Treatment Upcoming Encounters Date Type Specialty Care Team Description 06/15/2022 Appointment Orthopedics Vanna Ulloa MD [address] [facility] [place] [phone] (Wo rk) documented as of this encounter Visit Diagnoses Not on filedocumented in this encounter Care Teams Antichecking Iron Worker Relationship Specialty Start Date End Date Md Garcia MD PCP - General 08/16/10 01/17/12 [place] [address] documented as of this encounter
--- OUTSIDE RECORDS SUMMARY | 2022-04-22 14:07 | XMS_ITS | Encounter Summary ---
:1965 Author Organization [facility] Address [address], [place] [address] Care Team Providers Name Role Phone Md GEOVANNY Garcia Primary Care Provider Encounter Details Date Type Department Care Team Description 11/04/2006 PN Conversion Only [place] CONVERSION Manan Ahumada, [address] [facility] [place] [address] [address] [facility] [address] [place], [place] [address] (Wo rk) Social History Tobacco Use Types Packs/Day Years Used Date Smoking Tobacco: Never Assessed Sex Assigned at Date Recorded Not on file documented as of this encounter Plan of Treatment Upcoming Encounters Date Type Specialty Care Team Description 06/15/2022 Appointment Orthopedics Vanna Ulloa MD [address] [place], [place] [address] (Wo rk) documented as of this encounter Procedures Procedure Name Priority Date/Time Associated Comments Diagnosis ANATOMICAL PATH Routine 11/04/2006 10:23 AM Resul ts for this LIQUID BASED CDT procedure are i n the results section. documented in this encounter Results Pap Smear (11/04/2006 10:23 AM CDT) [facility] gist Method Time Signature PAP Smear SEE TEXT No normal HP CONVERSION Liquid Based range Comment: Patient: MARCELO LUNA ? CERVICAL CYTOLOGY REPORT Pathology # ??[id number] ?Date Obtained: ? Date Received: CYTOLOGIC IMPRESSION: Negative for intraepithelial lesion or m alignancy. Verified 11/08/06 by: ??LBM ?(electronic signature) ? KETURAH TIONAL DATA LMP: ? CLINICAL HIST LIQUID BASED PAP CERVICAL SPECIMEN ADEQUACY: ?? Satisfactory. ENDOCERVICAL CELLS: ??Absent. Specimen (Source) Anatomical Collection Method Collection Time Re ceived Time Location / / Volume Laterality 11/04/2006 10:23 AM CDT Manan Ahumada MD LAB_1 Performing Organization Address City/State/ZIP Code Phon e Number HP CONVERSION documented in this encounter Visit Diagnoses Not on filedocumented in this encounter Care Teams Mdm Developer Relationship Specialty Start Date End Date Md Garcia MD PCP - General 08/16/10 01/17/12 [place] [address] documented as of this encounter
--- OUTSIDE RECORDS SUMMARY | 2022-04-22 14:07 | XMS_ITS | Encounter Summary ---
:1965 Author Organization [facility] Address [address] [place] [address] Care Team Providers Name Role Phone Md GEOVANNY Garcia Primary Care Provider Encounter Details Date Type Department Care Team Description 12/30/2007 Office Visit [facility] Meghan Charles MD [address] [facility] . [address] [place] [address] [place] [address] [phone] (Wo rk) Social History Tobacco Use Types Packs/Day Years Used Date Smoking Tobacco: Never Assessed Sex Assigned at Date Recorded Not on file documented as of this encounter Last Filed Vital Signs Vital Sign Reading Time Taken Comments Blood Pressure 128/76 12/30/2007 11:15 AM CDT Pulse 80 12/30/2007 11:15 AM CDT Temperature - - Respiratory Rate - - Oxygen Saturation - - Inhaled Oxygen Concentration - - Weight - - Height - - Body Mass Index - - documented in this encounter Progress Notes Meghan Charles MD - 12/30/2007 12:01 AM CDT Progress Notes signed by Meghan Charles MD at 01/28/08 5235 Author: Meghan Charles MD Service: (none) Author Type: Physician Filed: 09/05/10 0620 Note Time: 12/30/07 0001 Status: Signed Gel Coat Sprayer: Meghan Charles MD (Physician) NAME: MARCELO BECK MR#: [id number] ACCT: [id number] VISIT: [id number] DICTATING CLINICIAN: Meghan Charles MD CONFIRM #: [id number] LOC: 1402 CLINIC PROGRESS NOTE DATE OF VISIT: 12/30/2007 SUBJECTIVE: : 1965. Marcelo is a 42-year-old female who has been having vaginal burning for the past 3 or 4 days with worsening symptoms this morning. CURRENT MEDICATIONS AND ADR/ALLERGIES: UPDATED IN THE PATIENT HEALTH PROFILE OF [facility]. She does smoke about 1 pack of cigarettes daily. OBJECTIVE: VS: BP: 128/76. P: 80. Wt: 274 lbs. GENERAL: Well-developed, well-nourished female in no acute distress. EXAM: Reveals normal-appearing external female genitalia. She does have some thin, yellowish vaginal discharge. Wet prep was done which was significant for clue cells. ASSESSMENT: Bacterial vaginosis. PLAN: She was given a prescription for Flagyl and will have her follow up as needed. KLM:[id number] C: 01/14/08 22:04 CONFIRM #: [id number] documented in this encounter Plan of Treatment Upcoming Encounters Date Type Specialty Care Team Description 06/15/2022 Appointment Orthopedics Vanna Ulloa MD [address] [place] [address] (Wo rk) documented as of this encounter Visit Diagnoses Not on filedocumented in this encounter Care Teams Surg Nurse Relationship Specialty Start Date End Date Md Garcia MD PCP - General 08/16/10 01/17/12 [place] [address] documented as of this encounter
--- OUTSIDE RECORDS SUMMARY | 2022-04-22 14:07 | XMS_ITS | Encounter Summary ---
:1965 Author Organization [facility] Address [address] [place] [address] Care Team Providers Name Role Phone Md GEOVANNY Garcia Primary Care Provider Encounter Details Date Type Department Care Team Description 11/09/2006 Office Visit [place] [facility] Brenda Barnett, Therapy PT [address] [facility] [place] [address] [address] [phone] [place], [place] [address] (Wo rk) Social History Tobacco Use Types Packs/Day Years Used Date Smoking Tobacco: Never Assessed Sex Assigned at Date Recorded Not on file documented as of this encounter Plan of Treatment Upcoming Encounters Date Type Specialty Care Team Description 06/15/2022 Appointment Orthopedics Vanna Ulloa MD [address] [place], [place] [address] (Wo rk) documented as of this encounter Visit Diagnoses Not on filedocumented in this encounter Care Teams Lab Rn Relationship Specialty Start Date End Date Md Garcia MD PCP - General 08/16/10 01/17/12 [place], [place] [address] documented as of this encounter
--- OUTSIDE RECORDS SUMMARY | 2022-04-22 14:07 | XMS_ITS | Encounter Summary ---
:1965 Author Organization [facility] Address [address] [place] [address] Care Team Providers Name Role Phone Md GEOVANNY Garcia Primary Care Provider Encounter Details Date Type Department Care Team Description 10/28/2006 Office Visit [place] [facility] Brenda Barnett, Therapy PT [address] [facility] [place] [address] [address] [phone] [place], [place] [address] (Wo rk) Social History Tobacco Use Types Packs/Day Years Used Date Smoking Tobacco: Never Assessed Sex Assigned at Date Recorded Not on file documented as of this encounter Plan of Treatment Upcoming Encounters Date Type Specialty Care Team Description 06/15/2022 Appointment Orthopedics Vanna Ulloa MD [address] [place], [place] [address] (Wo rk) documented as of this encounter Visit Diagnoses Not on filedocumented in this encounter Care Teams Recording Engineer Relationship Specialty Start Date End Date Md Garcia MD PCP - General 08/16/10 01/17/12 [place], [place] [address] documented as of this encounter
--- OUTSIDE RECORDS SUMMARY | 2022-04-22 14:07 | XMS_ITS | Encounter Summary ---
:1965 Author [facility] Address [address] [place] [address] Care Team Providers Name Role Phone Md GEOVANNY Garcia Primary Care Provider Encounter Details Date Type Department Care Team Description 02/09/2008 PN Conversion Only [place] CONVERSION Gwyn Steinberg F, [address] [facility] [place] [address] [address] [facility] [address] [address] (Wo rk) Social History Tobacco Use Types Packs/Day Years Used Date Smoking Tobacco: Never Assessed Sex Assigned at Date Recorded Not on file documented as of this encounter Plan of Treatment Upcoming Encounters Date Type Specialty Care Team Description 06/15/2022 Appointment Orthopedics Vanna Ulloa MD [address] [place], [place] [address] (Wo rk) documented as of this encounter Procedures Procedure Name Priority Date/Time Associated Diagnosis Comme nts GLUCOSE, WHOLE Routine 02/09/2008 3:07 PM Results for this BLOOD POCT CDT procedure are i n the results section. WET PREP Routine 02/09/2008 3:03 PM Results f or this CDT procedure are i n the results section. documented in this encounter Results (ABNORMAL) [facility] (02/09/2008 3:07 PM CDT) [facility] Method Time Signature Bedside Blood >500 (AA) mg/dL HP CONVERSION Glucose Test Comment: Critical BGS value of >500 called by JOSE GLEASON to at [place] location. Time 1516. Results read back verbatim by recipient. Specimen (Source) Anatomical Collection Method Collection Time Re ceived Time Location / / Volume Laterality 02/09/2008 3:07 PM CDT Gwyn Steinberg MD LAB_1 Performing Organization Address [facility] Phon e Number HP CONVERSION Wet Prep (02/09/2008 3:03 PM CDT) athologist Signature Wet Prep SEE TEXT HP CONVERSION Comment: Patient: MARCELO BECK Wet Prep ?Collected: ??[id number] ??[id number] Source: Vaginal ? Processed: ??[id number] ??[id number] ? S Final Report ------ Few WBCs seen Few epithelial cells seen No Trichomonas seen No yeast seen No clue cells seen Specimen (Source) Anatomical Collection Method Collection Time Re ceived Time Location / / Volume Laterality 02/09/2008 3:03 PM CDT Gwyn Steinberg MD LAB_1 Performing Organization Address [facility] Phon e Number HP CONVERSION documented in this encounter Visit Diagnoses Not on filedocumented in this encounter Care Teams Ladle Watcher Relationship Specialty Start Date End Date Md Garcia MD PCP - General 08/16/10 01/17/12 [place] [address] documented as of this encounter
--- OUTSIDE RECORDS SUMMARY | 2022-04-22 14:07 | XMS_ITS | Encounter Summary ---
:1965 Author Organization [facility] Address [address] [place] [address] Care Team Providers Name Role Phone Md GEOVANNY Garcia Primary Care Provider Encounter Details Date Type Department Care Team Description 02/07/2007 PN Conversion Only [facility] [address] [address] [place], [place] [id number] Social History Tobacco Use Types Packs/Day Years Used Date Smoking Tobacco: Never Assessed Sex Assigned at Date Recorded Not on file documented as of this encounter Plan of Treatment Upcoming Encounters Date Type Specialty Care Team Description 06/15/2022 Appointment Orthopedics Vanna Ulloa MD [address] [place], [place] [phone] (Wo rk) documented as of this encounter Visit Diagnoses Not on filedocumented in this encounter Care Teams Granite Installer Relationship Specialty Start Date End Date Md Garcia MD PCP - General 08/16/10 01/17/12 [place], [place] [id number] documented as of this encounter
--- OUTSIDE RECORDS SUMMARY | 2022-04-22 14:07 | XMS_ITS | Encounter Summary ---
:1965 Author Organization [facility] Address [address] [address] Care Team Providers Name Role Phone Md GEOVANNY Garcia Primary Care Provider Encounter Details Date Type Department Care Team Description 06/06/2008 PN Conversion Only [place] CONVERSION Manan Ahumada, [address] [facility] [place] [address] [address] [facility] [address] [place], [place] [address] (Wo rk) Social History Tobacco Use Types Packs/Day Years Used Date Smoking Tobacco: Never Assessed Sex Assigned at Date Recorded Not on file documented as of this encounter Plan of Treatment Upcoming Encounters Date Type Specialty Care Team Description 06/15/2022 Appointment Orthopedics Vanna Ulloa MD [address] [place], [place] [address] (Wo rk) documented as of this encounter Procedures Procedure Name Priority Date/Time Associated Comments Diagnosis ANATOMICAL PATH Routine 06/06/2008 9:41 AM Result s for this LIQUID BASED LOCKSTITCH SLEEVE MAKER procedure are i n the results section. documented in this encounter Results Pap Smear (06/06/2008 9:41 AM LOCKSTITCH SLEEVE MAKER) [facility] Method Time Signature PAP Smear SEE TEXT No normal HP CONVERSION Liquid Based range Comment: Patient: MARCELO BECK ? CERVICAL CYTOLOGY REPORT Pathology # ??[id number] ?Date Obtained: ? Date Received: CYTOLOGIC IMPRESSION: Negative for intraepithelial lesion or m alignancy. Verified 06/11/08 by: ??JLL ?(electronic signature) ? KETURAH TIONAL DATA LMP: CLINICAL HIST LIQUID BASED PAP CERVICAL SPECIMEN ADEQUACY: ?? Satisfactory. ENDOCERVICAL CELLS: ??Absent. Specimen (Source) Anatomical Collection Method Collection Time Re ceived Time Location / / Volume Laterality 06/06/2008 9:41 AM LOCKSTITCH SLEEVE MAKER Manan Ahumada MD LAB_1 Performing Organization Address City/State/ZIP Code Phon e Number HP CONVERSION documented in this encounter Visit Diagnoses Not on filedocumented in this encounter Care Teams Ar Manager Relationship Specialty Start Date End Date Md Garcia MD PCP - General 08/16/10 01/17/12 [place], [place] [address] documented as of this encounter
--- OUTSIDE RECORDS SUMMARY | 2022-04-22 14:07 | XMS_ITS | Encounter Summary ---
:1965 Author Organization [email or web address] Address [address] [place] [address] Care Team Providers Name Role Phone Md GEOVANNY Garcia Primary Care Provider Encounter Details Date Type Department Care Team Description 07/05/2008 Office Visit [facility] Germaine Chilel I, [address] [facility] [place] [address] [address] [facility] [phone] [place], [place] [phone] (Wo rk) Social History Tobacco Use Types Packs/Day Years Used Date Smoking Tobacco: Never Assessed Sex Assigned at Date Recorded Not on file documented as of this encounter Last Filed Vital Signs Vital Sign Reading Time Taken Comments Blood Pressure 130/76 07/05/2008 10:51 AM DRESSMAKER HELPER Pulse - - Temperature 36.4 ??C (97.5 ??F) 07/05/2008 10:51 AM C: 36.4 C DRESSMAKER HELPER Respiratory Rate - - Oxygen Saturation - - Inhaled Oxygen Concentration - - Weight 119.7 kg (263 lb 15.7 07/05/2008 10:51 AM C: 119 .7kg oz) DRESSMAKER HELPER Height - - Body Mass Index 41.34 06/06/2008 9:50 AM DRESSMAKER HELPER documented in this encounter Progress Germaine Manuel - 07/05/2008 12:01 AM CST Progress Notes signed by Germaine Lopez MD at 07/05/08 8649 Author: Germaine Lopez MD Service: (none) Author Type: Physician Filed: 09/05/10 1106 Note Time: 07/05/08 0001 Status: Signed Woodworker: Germaine Lopez MD (Physician) NAME: MARCELO BECK MR#: [id number] ACCT: [id number] VISIT: [id number] DICTATING CLINICIAN: Germaine Lopez MD CONFIRM #: [id number] LOC: 1202 CLINIC PROGRESS NOTE DATE OF VISIT: 07/05/2008 SUBJECTIVE: : 1965. CHIEF COMPLAINT: Cough and congestion. HISTORY OF PRESENT ILLNESS: Marcelo is a 42-year-old woman who comes in today stating that she had fairly typical cold-type symptoms for about a month or so. For the past week, she has had a terrible productive cough that just is not improving. She has had no fever, chills, nausea or vomiting. She has been a little down since she found out that she had diabetes. She states her hemoglobin A1c was very high in February and has not gone back to see her diabetic specialist. She was on metformin and had some diarrhea because of this. She is a smoker currently. PAST MEDICAL HISTORY: Reviewed with the addition of type 2 diabetes mellitus. MEDICATIONS: Reviewed. ADR/ALLERGIES: NO KNOWN DRUG ALLERGIES. 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 REVIEW OF SYSTEMS: Complete review of systems done and are negative, except for those stated above. OBJECTIVE: VS: BP: 130/76. T: 97.5. Wt: 264. GENERAL: She is in no acute distress. HEENT: Normocephalic, atraumatic. TMs clear. PERRL. Oropharynx: With no erythema. NECK: Supple, with no lymphadenopathy or thyromegaly. CARDIOVASCULAR: Regular rate and rhythm, without murmur, gallop or rub. LUNGS: Transmitted upper airway noises, otherwise lungs are clear. ABDOMEN: Soft, nontender. No organomegaly or mass. Bowel sounds present. EXTREMITIES: No clubbing, cyanosis or edema. SKIN: Free of rash. ASSESSMENT: 1. Bronchitis. Plan: Azithromycin Z-Darius to take as directed. Other symptomatic measures. She did not want a cough medicine. 2. Type 2 diabetes mellitus with very little followup. I recommended that she get in to see somebody for her diabetes. She is due for an A1c and is overdue for her diabetic check. I talked to her about my concern. I gave her a prescription for metformin to start with 500 mg once a day for 2-3 weeks and then increase to twice a day and will go from there. If covered by insurance, the extended release might be tolerated better by her. I also recommended she get in for a diabetic check soon. 3. Tobacco dependence. Recommended cessation. PLAN: See assessment. PIF:[id number] C: 07/05/08 12:26 CONFIRM #: [id number] SMAKER HELPER documented in this encounter Plan of Treatment Upcoming Encounters Date Type Specialty Care Team Description 06/15/2022 Appointment Orthopedics Vanna Ulloa MD [address] [facility] [place] [address] (Wo rk) documented as of this encounter Visit Diagnoses Not on filedocumented in this encounter Care Teams Retail Store Assistant Relationship Specialty Start Date End Date Md Garcia MD PCP - General 08/16/10 01/17/12 [place] [address] documented as of this encounter
--- OUTSIDE RECORDS SUMMARY | 2022-04-22 14:07 | XMS_ITS | Encounter Summary ---
:1965 Author Organization [facility] Address [address] [place] [address] Care Team Providers Name Role Phone Md GEOVANNY Garcia Primary Care Provider Encounter Details Date Type Department Care Team Description 12/09/2006 Office Visit [place] [facility] Brenda Barnett, Therapy PT [address] [place] [address] [address] [phone] [place], [place] [address] (Wo rk) Social History Tobacco Use Types Packs/Day Years Used Date Smoking Tobacco: Never Assessed Sex Assigned at Date Recorded Not on file documented as of this encounter Plan of Treatment Upcoming Encounters Date Type Specialty Care Team Description 06/15/2022 Appointment Orthopedics Vanna Ulloa MD [address] [place], [place] [address] (Wo rk) documented as of this encounter Visit Diagnoses Not on filedocumented in this encounter Care Teams Senior Technical Recruiter Relationship Specialty Start Date End Date Md Garcia MD PCP - General 08/16/10 01/17/12 [place], [place] [address] documented as of this encounter
--- OUTSIDE RECORDS SUMMARY | 2022-04-22 14:07 | XMS_ITS | Encounter Summary ---
:1965 Author Organization [facility] Address [address] [place] [address] Care Team Providers Name Role Phone Md GEOVANNY Garcia Primary Care Provider Reason for Visit Reason Comments Other Encounter Details Date Type Department Care Team Description 02/19/[address] Latonya Magallanes, SHARYN Other [address] [facility] [address] Social History Tobacco Use Types Packs/Day Years Used Date Smoking Tobacco: Never Assessed Sex Assigned at Date Recorded Not on file documented as of this encounter Progress [facility], Message - 02/19/2008 1:15 PM CDT Phone Note filed by LoyaltyLion at 09/03/10723 Author: [employer] Service: (none) Author Type: (none) Filed: 09/03/10723 Note Time: 02/19/08 131 Status: Signed Sponge Buffer: [facility] Non -Symptom Message from Front Line Caller Name/Relationship:Patient Primary Research Laboratory Manager:Idris/Chavo Message:Pt stopped by and said the gas distribution plant operator in [address] / [place], suggested that she should up her Medformin 500 mg medication from 1 tab to 2 tabs per day. She was prescribed enough to take 2 tabs, but initially told by Idris to take only 1 tab. She wants to have doctor to order an increase her meds to 2 tabs daily Salvage Inspector:Patient Best call back number:[phone] Is it OK to leave a confidential message on this voicemail? Msg OK *[email or web address]~[id number] Created on 19Feb2008 1:15pm by LEN SANTOS On 19Feb2008 8:51pm BROCK AGUILERA wrote: Sent to [facility] Acknowledged by BROCK AGUILERA on 8:51pm On 20Feb2008 1:43pm LATONYA CHAMPION wrote: Called lm with above Acknowledged by LATONYA CHAMPION on 1:43pm MACHINE OPERATOR documented in this encounter Plan of Treatment Upcoming Encounters Date Type Specialty Care Team Description 06/15/2022 Appointment Orthopedics Vanna Ulloa MD [address] [facility] [place] [address] (Wo rk) documented as of this encounter Visit Diagnoses Not on filedocumented in this encounter Care Teams Foil Operator Relationship Specialty Start Date End Date Md Garcia MD PCP - General 08/16/10 01/17/12 [facility] [place] [address] documented as of this encounter
--- OUTSIDE RECORDS SUMMARY | 2022-04-22 14:07 | XMS_ITS | Encounter Summary ---
:1965 Author Organization [facility] Address [address], [place] [address] Care Team Providers Name Role Phone Md GEOVANNY Garcia Primary Care Provider Encounter Details Date Type Department Care Team Description 01/30/2007 PN Conversion Only [place] [facility] [address] [facility] . [place], [place] [address] Social History Tobacco Use Types Packs/Day Years Used Date Smoking Tobacco: Never Assessed Sex Assigned at Date Recorded Not on file documented as of this encounter Plan of Treatment Upcoming Encounters Date Type Specialty Care Team Description 06/15/2022 Appointment Orthopedics Vanna Ulloa MD [address] [place], [place] [address] (Wo rk) documented as of this encounter Procedures Procedure Name Priority Date/Time Associated Diagnosis Comme nts MM MAMMOGRAM Routine 01/30/2007 10:41 AM Results for this SCREENING W CAD CDT procedure ar e in the results section. documented in this encounter Results MM Mammogram Screening W CAD (01/30/2007 10:41 AM CDT) Anatomical Region Laterality Modality Breast Bilateral Mammography Specimen (Source) Anatomical Location Collection Method / Collectio n Time Received Time / Laterality Volume Impressions 02/02/2007 5:00 PM CDT : Nodular density on the left. Ultrasound will be scheduled. ACR-BIRADS CATEGORY 0: Need additional i maging evaluation. [id number] Dictating BARTOLOME MONSALVE RADIOLOGIST Narrative 02/02/2007 5:00 PM CDT Comparison is with the 05/29/2003 study. In the lateral upper left breast there is a partially circumscribe d 7 mm nodular density, which is a new finding. Ultrasound will be ritu eduled. Otherwise breasts are generally decreased in density without m asses or suspicious calcifications and are unchanged. Procedure Note Bartolome Rojas - 07/19/2016Formattin g of this note might be different from the original. Comparison is with the 05/29/2003 study. In the lateral upper left breast there is a partially circumscribe d 7 mm nodular density, which is a new finding. Ultrasound will be ritu eduled. Otherwise breasts are generally decreased in density without m asses or suspicious calcifications and are unchanged. IMPRESSION : Nodular density on the left. Ultrasoun d will be scheduled. ACR-BIRADS CATEGORY 0: Need additional i maging evaluation. [id number] Dictating BARTOLOME MONSALVE RADIOLOGIST Manan Ahumada MD RAD [facility] documented in this encounter Visit Diagnoses Not on filedocumented in this encounter Care Teams Crew Mess Attendant Relationship Specialty Start Date End Date Md Garcia MD PCP - General 08/16/10 01/17/12 [place] [address] documented as of this encounter
--- OUTSIDE RECORDS SUMMARY | 2022-04-22 14:07 | XMS_ITS | Encounter Summary ---
:1965 Author [facility] Address [address] [place] [address] Care Team Providers Name Role Phone Md GEOVANNY Garcia Primary Care Provider Encounter Details Date Type Department Care Team Description 02/16/2007 Office Visit [facility] Kirk Oshea MD [address] [facility] [address] [place] [address] [place] [address] [phone] (Wo rk) Social History Tobacco Use Types Packs/Day Years Used Date Smoking Tobacco: Never Assessed Sex Assigned at Date Recorded Not on file documented as of this encounter Last Filed Vital Signs Vital Sign Reading Time Taken Comments Blood Pressure 126/80 02/16/2007 10:06 C: Non Invasive BP AM CDT Cuff Pulse 80 02/16/2007 10:06 AM CDT Temperature - - Respiratory Rate - - Oxygen Saturation - - Inhaled Oxygen - - Concentration Weight 126.5 kg (278 lb 02/16/2007 10:06 C: 126.6kg 15.9 oz) AM CDT Height - - Body Mass Index 44.03 11/04/2006 10:40 AM CDT documented in this encounter Progress Notes Kirk Oshea - 02/16/2007 12:01 AM CDT Progress Notes signed by at 02/16/07 1107 Author: Kirk Oshea MD Service: (none) Author Type: (none) Filed: 09/04/10 2202 Note Time: 02/16/07 0001 Status: Signed Counter Sales Representative: Cesar Sher Acute Clinic Visit IMPRESSION: Acute Otitis Media, Left Acute Otitis Media, Right Cerumenosis Smoking SUBJECTIVE: History of Present Illness: Symptom(s): Afebrile. No headache. Itchy eyes. Ear pain. Ears feel plugged. Nasal congestion/rhinorrhea. Post-nasal drainage. Tooth pain. Sore throat. Productive cough. Ears feel plugged: Duration: 5 days. Severity: Moderate. Symptom Trend: Stable. Nasal congestion/rhinorrhea: Duration: 5 days. Severity: Moderate. Symptom Trend: Stable. Meds This Illness: No acute medications being used Past History: Allergic rhinitis being treated with medications currently Tobacco: Yes. Drugs: Denies any drug use. OBJECTIVE: Vital Signs: Vital Signs taken today were reviewed on the flowsheet in LastWord. General Appearance: Well-appearing Eyes: External exam is normal bilaterally Left ear: Canal: normal, impacted with cerumen, irrigated by nurse and $found to be normal, TM: bulging, purulent middle ear fluid Right ear: Canal: impacted with cerumen, irrigated by nurse and found to be &normal, TM: red, bulging Oropharynx: Normal, mucous membranes moist, tonsils symmetric without redness or exudate. Neck: Supple without significant adenopathy or thyromegaly Respiratory: Lung sounds clear to auscultation without respiratory distress Cardiac: RRR without murmur Lab & X-Ray: None ASSESSMENT: Acute Otitis Media, Left Acute Otitis Media, Right Cerumenosis Smoking PLAN: Amoxicillin 875 mg. BID x 10d Symptomatic care Nutritious liquids Discontinue smoking RTC PRN if not gradually improving *SH~PC~URIL ~[place] Note completed on: 02/16/2007 11:07 AM AMBULATORY ANALYSTS documented in this encounter Plan of Treatment Upcoming Encounters Date Type Specialty Care Team Description 06/15/2022 Appointment Orthopedics Vanna Ulloa MD [address] [facility] [place] [address] (Wo rk) documented as of this encounter Visit Diagnoses Not on filedocumented in this encounter Care Teams Supervisor Insulation Relationship Specialty Start Date End Date Pnc, Md, MD PCP - General 08/16/10 01/17/12 [place], [place] [address] documented as of this encounter
--- OUTSIDE RECORDS SUMMARY | 2022-04-22 14:07 | XMS_ITS | Encounter Summary ---
:1965 [facility] Address [address] [place] [address] Care Team Providers Name Role Phone Md GEOVANNY Garcia Primary Care Provider Reason for Visit Reason Comments Other Encounter Details Date Type Department Care Team Description 02/12/2008 [facility]phone [facility] Latonya Magallanes, PHARMACY TECHNOLOGY INSTRUCTOR Other [address] [place] [address] Social History Tobacco Use Types Packs/Day Years Used Date Smoking Tobacco: Never Assessed Sex Assigned at Date Recorded Not on file documented as of this encounter Progress Notes Kim Wheeler - 02/12/2008 3:25 PM CDT Phone Note filed by Kim Wheeler at 09/03/10 0654 Author: Kim Wheeler Service: (none) Author Type: (none) Filed: 09/03/10 0654 Note Time: 02/12/08 1525 Status: Signed Power Electronics Research Engineer: Cesar Sher Non -Symptom Message from Front Line Caller Name/Relationship:Jeanette/Diabetes education Primary Public Housing Manager:Idris Message:Jeanette is calling for the referral; appointment tomorrow 02/12. Fax to [phone]. Jeanette is aware that Dr Aguilera is out of the office today. Ruling Machine Feeder:Jeanette Yu call back number:[phone] until 1:30 p.m. Is it OK to leave a confidential message on this voicemail?y Created on 12Feb2008 3:25pm by KIM WHEELER On 12Feb2008 11:59pm BROCK AGUILERA wrote: Diabetes ed consult Acknowledged by BROCK AGUILERA on 11:59pm On 13Feb2008 9:49am LATONYA CHAMPION wrote: orders faxed Acknowledged by LATONYA CHAMPION on 9:49am OPERATIONS MANAGER documented in this encounter Plan of Treatment Upcoming Encounters Date Type Specialty Care Team Description 06/15/2022 Appointment Orthopedics Vanna Ulloa MD [address] [facility] [place] [address] (Wo rk) documented as of this encounter Visit Diagnoses Not on filedocumented in this encounter Care Teams Legal Stenographer Relationship Specialty Start Date End Date Md Garcia MD PCP - General 08/16/10 01/17/12 [place] [address] documented as of this encounter
--- OUTSIDE RECORDS SUMMARY | 2022-04-22 14:07 | XMS_ITS | Encounter Summary ---
:1965 Author Organization [facility] Address [address] [place] [address] Care Team Providers Name Role Phone Md GEOVANNY Garcia Primary Care Provider Encounter Details Date Type Department Care Team Description 01/09/2007 PN Conversion Only [facility] [address] [place] [address] Social History Tobacco Use Types Packs/Day Years Used Date Smoking Tobacco: Never Assessed Sex Assigned at Date Recorded Not on file documented as of this encounter Plan of Treatment Upcoming Encounters Date Type Specialty Care Team Description 06/15/2022 Appointment Orthopedics Vanna Ulloa MD [address] [place], [place] [address] (Wo rk) documented as of this encounter Visit Diagnoses Not on filedocumented in this encounter Care Teams Fish Warden Relationship Specialty Start Date End Date Md Garcia MD PCP - General 08/16/10 01/17/12 [place], [place] [phone] documented as of this encounter
--- OUTSIDE RECORDS SUMMARY | 2022-04-22 14:07 | XMS_ITS | Encounter Summary ---
:1965 [facility] Address [address] [place] [address] Care Team Providers Name Role Phone Md GEOVANNY Garcia Primary Care Provider Encounter Details Date Type Department Care Team Description 02/09/2008 Office Visit [facility] Gwyn Aguilera MD [address] [facility] . [address] [place] [address] [place] [address] [phone] (Wo rk) Social History Tobacco Use Types Packs/Day Years Used Date Smoking Tobacco: Never Assessed Sex Assigned at Date Recorded Not on file documented as of this encounter Last Filed Vital Signs Vital Sign Reading Time Taken Comments Blood Pressure 112/80 02/09/2008 2:35 PM CDT Pulse 80 02/09/2008 2:35 PM CDT Temperature - - Respiratory Rate - - Oxygen Saturation - - Inhaled Oxygen Concentration - - Weight 120.7 kg (265 lb 15.8 02/09/2008 2:35 PM C: 120. 7kg oz) CDT Height - - Body Mass Index 41.97 11/04/2006 10:40 AM CDT documented in this encounter Progress Notes Gwyn Aguilera MD - 02/09/2008 12:01 AM CDT Progress Notes signed by Gwyn Aguilera MD at 02/12/08 1516 Author: Gwyn Aguilera MD Service: (none) Author Type: Physician Filed: 09/05/10 0721 Note Time: 02/09/08 0001 Status: Signed Advertising Sales Assistant: Gwyn Aguilera MD (Physician) NAME: MARCELO BECK MR#: [id number] ACCT: [id number] VISIT: [id number] DICTATING CLINICIAN: GWYN AGUILERA MD CONFIRM #: [id number] LOC: 1202 CLINIC PROGRESS NOTE DATE OF VISIT: 02/09/2008 SUBJECTIVE: Patient presents with vaginal itching, was treated for Gardnerella about 1 month ago with oral metronidazole without much success. Has significant itching with minimal discharge, no odor. Has pain with intercourse, is monogamous. Coincidentally reports significant urination, thirst and interruption of her work duties and sleep secondary to frequent voiding. Strong family history of diabetes. MEDICATION LIST: Reviewed. OBJECTIVE: Vitals are per documentation tab. Obese female, no distress. Of note is a 10 pound weight loss from 1 year ago. With party host/hostess present, the perineum was examined, which was markedly erythematous. She is able to tolerate the speculum exam and a specimen was obtained of thin, milky/watery secretions. ESVIN and wet preps were negative for both yeast and clue cells as well as Trichomonas. However, her Accu-Chek was in excess of 50.0 ASSESSMENT: 1. New diagnosis diabetes, out of control without complications. 2. Vaginitis. PLAN: She will use some modest Terazol cream as well as some topical hydrocortisone ointment for comfort. She was started on metformin 500 mg daily with provisional allowances for increasing the dose. Diabetes education is willing to see her at the beginning of next week to go over monitoring and additional medical management. She will follow up with her regular physician in 10-14 days. CC: PATRICE BANEGAS MD JFR:[id number] C: 02/12/08 07:00 CONFIRM #: [id number] documented in this encounter Plan of Treatment Upcoming Encounters Date Type Specialty Care Team Description 06/15/2022 Appointment Orthopedics Vanna Ulloa MD [address] [place] [address] (Wo rk) documented as of this encounter Visit Diagnoses Not on filedocumented in this encounter Care Teams Berry Grower Relationship Specialty Start Date End Date Md Garcia MD PCP - General 08/16/10 01/17/12 [place] [address] documented as of this encounter
--- OUTSIDE RECORDS SUMMARY | 2022-04-22 14:07 | XMS_ITS | Encounter Summary ---
:1965 Author Organization [facility] Address [address] [place] [address] Care Team Providers Name Role Phone Md GEOVANNY Garcia Primary Care Provider Encounter Details Date Type Department Care Team Description 12/05/2006 PN Conversion Only CONV PULMONARY Jorge Denton MD [address] [place] [phone] (Wo rk) Social History Tobacco Use Types Packs/Day Years Used Date Smoking Tobacco: Never Assessed Sex Assigned at Date Recorded Not on file documented as of this encounter Plan of Treatment Upcoming Encounters Date Type Specialty Care Team Description 06/15/2022 Appointment Orthopedics Vanna Ulloa MD [address] [place], [place] [address] (Wo rk) documented as of this encounter Visit Diagnoses Not on filedocumented in this encounter Care Teams Hand Cigar Making Supervisor Relationship Specialty Start Date End Date Md Garcia MD PCP - General 08/16/10 01/17/12 [place], [place] [id number] documented as of this encounter
--- OUTSIDE RECORDS SUMMARY | 2022-04-22 14:07 | XMS_ITS | Encounter Summary ---
:1965 Author Organization [facility] Address [address] [place] [address] Care Team Providers Name Role Phone Md GEOVANNY Garcia Primary Care Provider Reason for Visit Reason Comments Other Encounter Details Date Type Department Care Team Description 12/30/2007 Telephone [facility] Eugenia Murry RN Other [address] [facility] [place] [address] Social History Tobacco Use Types Packs/Day Years Used Date Smoking Tobacco: Never Assessed Sex Assigned at Date Recorded Not on file documented as of this encounter Progress Notes Eugenia Murry RN - 12/30/2007 9:44 AM CDT Phone Note filed by Eugenia Murry RN at 09/03/10327 Author: Eugenia Murry RN Service: (none) Author Type: Registered Nurse Filed: 09/03/10327 Note Time: 12/30/07 0944 Status: Signed Water And Gas Helper: Eugenia Murry RN (Registered Nurse) CLINICIAN FOLLOW-UP: none IMPRESSION: Vulvar Symptoms. SYMPTOMS: patient calling who is having vaginal burning and itching for four days. afebrile. No vaginal discharge in panties. States she had unprotected sex last night with spouse but none prior to last night prior to onset of symptoms. Denies emergent symptoms CARE ADVICE: Booked appt in FP for this a.m. as she does not have classic symptoms of no discharge despite symptoms for four days. Advised to call back if any of the following occur: any other questions or concerns. PLAN: SCHEDULE APPOINTMENT WITHIN 48 HOURS Patient/Caller agrees with plan and denies additional questions. References Used: [facility] Adult Telephone Protocols--Vulvar Symptoms. Call Complete. *SH~RAYMUNDO~VULVARSX ~ Created on 30Dec2007 9:44am by EUGENIA MURRY TARY TECHNICIAN documented in this encounter Plan of Treatment Upcoming Encounters Date Type Specialty Care Team Description 06/15/2022 Appointment Orthopedics Vanna Ulloa MD [address] [place], [place] [address] (Wo rk) documented as of this encounter Visit Diagnoses Not on filedocumented in this encounter Care Teams Nurse Coordinator Relationship Specialty Start Date End Date Md Garcia MD PCP - General 08/16/10 01/17/12 [place] [address] documented as of this encounter
--- OUTSIDE RECORDS SUMMARY | 2022-04-22 14:07 | XMS_ITS | Encounter Summary ---
:[address] [facility] Address [address] [place] [address] Care Team Providers Name Role Phone Md GEOVANNY Garcia Primary Care Provider Encounter Details Date Type Department Care Team Description 11/04/2006 Office Visit [place] 1515 Kee Ahumada MD Obstetrics/Gynecolog y 1515 [facility] 1515 [facility] [address] [place] [address] [place] [address] [phone] (Wo rk) Social History Tobacco Use Types Packs/Day Years Used Date Smoking Tobacco: Never Assessed Sex Assigned at Date Recorded Not on file documented as of this encounter Last Filed Vital Signs Vital Sign Reading Time Taken Comments Blood Pressure 130/72 11/04/2006 10:40 AM CDT Pulse - - Temperature - - Respiratory Rate - - Oxygen Saturation - - Inhaled Oxygen Concentration - - Weight 125.3 kg (276 lb 3.1 oz) 11/04/2006 10:40 AM C: 125.3kg CDT Height 169.5 cm (5' 6.75) 11/04/2006 10:40 AM C: 169.5 cm CDT Body Mass Index 43.59 11/04/2006 10:40 AM CDT documented in this encounter Progress Notes Kee Ahumada MD - 11/04/2006 12:01 AM CDT Progress Notes signed by Kee Ahumada MD at 11/07/06 6430 Author: Kee Ahumada MD Service: (none) Author Type: Physician Filed: 09/04/10 1959 Note Time: 11/04/062022 Status: Signed Route Vending Machine Servicer: Kee Ahumada MD (Physician) NAME: MARCELO LUNA MR#: [id number] ACCT: [id number] VISIT: [id number] DICTATING CLINICIAN: KEE HAUMADA MD JOB: [id number] LOC: 3212 CLINIC PROGRESS NOTE DATE OF VISIT: 11/04/2006 SUBJECTIVE: The patient is a 41-year-old para 3-0-2-3, LMP 10/15/06, status post tubal ligation. She is here today for an annual exam. She has no particular concerns for her visit today. There has been no interval change in her health history which is significant for depression, recent right ankle fracture, tubal ligation. When we had seen her last year, she was having problems with PMDD. She found that the Celexa did provide improvement. She is actually increasing the dose, seems to be taking an extra dose of the Celexa during the second half of her cycle, and that provides further improvement. She is still having some cramping and tries to medicate for that when she can anticipate it. There is no interval change in her family history. MEDICATIONS: Prilosec OTC, Nasonex, the Celexa, and a multivitamin. ADR/ALLERGIES: SHE HAS NO ALLERGIES. She is partnered in a relationship. Has 3 children, ages 8, 18, and 21. 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 Smokes about a pack of cigarettes per day. Uses alcohol and caffeine in moderation. Exercises once or twice a week. Does a breast self-exam. Wears a seat belt. She denies drug use. OBJECTIVE: VS: BP: 130/72. Ht: 66-3/4 in. Wt: 276.2 lb. An exam was performed with the nurse present in the room. CHEST: Clear to auscultation. HEART: Regular rate and rhythm, normal S1 and S2. No murmurs. BREASTS: Without masses or discharge bilaterally. Axillae are without masses. ABDOMEN: Obese, soft, nontender, without masses. EXTREMITIES: Without cords or edema. External genitalia, urethra, and vagina are without lesions. The cervix appears parous. Pap smear is obtained. On bimanual exam, the uterus is normal size, mid position. No adnexal masses are noted. Exam is limited by the patient's obesity. ASSESSMENT: Normal annual exam. PLAN: Will notify patient of Pap results when available. I gave her another prescription for the Celexa. She received a Tdap booster today, and she will schedule a mammogram. Lastly, we did discuss smoking cessation. Offered her the option of Chantix, and she will notify us if she wishes to proceed with that. She will follow up in 1 year for an annual exam, sooner p.r.n. DAD:[id number] C: 11/07/06 08:12 DOCUMENT: [id number] documented in this encounter Plan of Treatment Upcoming Encounters Date Type Specialty Care Team Description 06/15/2022 Appointment Orthopedics Vanna Ulloa MD [address] [facility] [place] [address] (Wo rk) documented as of this encounter Visit Diagnoses Not on filedocumented in this encounter Care Teams Sports Medicine Trainer Relationship Specialty Start Date End Date Md Garcia MD PCP - General 08/16/10 01/17/12 [place] [address] documented as of this encounter
--- OUTSIDE RECORDS SUMMARY | 2022-04-22 14:07 | XMS_ITS | Encounter Summary ---
:1965 Author Organization [facility] Address [address], [place] [address] Care Team Providers Name Role Phone Md GEOVANNY Garcia Primary Care Provider Encounter Details Date Type Department Care Team Description 01/13/2007 Office Visit [place] [facility] Marie Velasquez MD [address] [facility] [address] [place], [place] [address] [place] [address] (Wo rk) Social History Tobacco Use Types Packs/Day Years Used Date Smoking Tobacco: Never Assessed Sex Assigned at Date Recorded Not on file documented as of this encounter Progress Notes Marie Velasquez MD - 01/13/2007 12:01 AM CDT Progress Notes signed by Marie Velasquez MD at 01/17/07 0837 Author: Marie Velasquez MD Service: (none) Author Type: Physician Filed: 09/04/102120 Note Time: 01/13/07 0001 Status: Signed Egg Processing Supervisor: Marie Velasquez MD (Physician) NAME: MARCELO BECK MR#: [id number] ACCT: [id number] VISIT: [id number] DICTATING CLINICIAN: MARIE VELASQUEZ MD JOB: [id number] LOC: 311 CLINIC PROGRESS NOTE DATE OF VISIT: 01/13/2007 SUBJECTIVE: Marcelo is seen for the first time since September. I had seen her then for a second opinion concerning chronic ankle pain after an injury that occurred in 02/2005 and we got her into physical therapy. She went to therapy down in [place] and she said she is at least 75% better. She is extremely pleased with her progress. OBJECTIVE: On exam, her range of motion is excellent. She has full resistive strength of all musculature about the ankle. No instability. Minimal tenderness over the anterior talofibular ligament. ASSESSMENT: Chronic right ankle pain, now resolving. PLAN: I stressed to her the importance of continuing with her exercise program indefinitely. I strongly encouraged her to quit smoking. She will follow up with me as needed. PRD:[id number] C: 01/14/07 12:08 DOCUMENT: [id number] documented in this encounter Plan of Treatment Upcoming Encounters Date Type Specialty Care Team Description 06/15/2022 Appointment Orthopedics Vanna Ulloa MD [address] [facility] [place] [address] (Wo rk) documented as of this encounter Visit Diagnoses Not on filedocumented in this encounter Care Teams Kiln Transfer Operator Relationship Specialty Start Date End Date Md Garcia MD PCP - General 08/16/10 01/17/12 [place] [address] documented as of this encounter
--- OUTSIDE RECORDS SUMMARY | 2022-04-22 14:07 | XMS_ITS | Encounter Summary ---
:1965 [facility] Address [address] [place] [address] Care Team Providers Name Role Phone Md GEOVANNY Garcia Primary Care Provider Encounter Details Date Type Department Care Team Description 12/30/2007 PN Conversion Only [place] CONVERSION Meghan Charles MD [address] [facility] [address] [place] [address] [place], [place] [address] Social History Tobacco Use Types Packs/Day Years Used Date Smoking Tobacco: Never Assessed Sex Assigned at Date Recorded Not on file documented as of this encounter Plan of Treatment Upcoming Encounters Date Type Specialty Care Team Description 06/15/2022 Appointment Orthopedics Vanna Ulloa MD [address] [place], [place] [address] (Wo rk) documented as of this encounter Procedures Procedure Name Priority Date/Time Associated Diagnosis Comme nts WET PREP Routine 12/30/2007 11:32 AM Results for this CDT procedure are i n the results section . documented in this encounter Results Wet Prep (12/30/2007 11:32 AM CDT) P athologist Signature Wet Prep SEE TEXT HP CONVERSION Comment: Patient: MARCELO BECK Wet Prep ?Collected: ??[id number] Source: Vaginal ? Processed: ??[id number] ??[id number] Final Report ------ No WBCs seen Few epithelial cells seen No Trichomonas seen No yeast seen Few clue cells seen Specimen (Source) Anatomical Collection Method Collection Time Re ceived Time Location / / Volume Laterality 12/30/2007 11:32 AM CDT Meghan Charles MD LAB_1 Performing Organization Address City/State/[facility] Code Phon e Number HP CONVERSION documented in this encounter Visit Diagnoses Not on filedocumented in this encounter Care Teams Photographic Technician Relationship Specialty Start Date End Date Md Jose, PCP - General 08/16/10 01/17/12 [place] [address] documented as of this encounter
--- OUTSIDE RECORDS SUMMARY | 2022-04-22 14:07 | XMS_ITS | Encounter Summary ---
:1965 Author Organization [facility] Address [address] [place] [address] Care Team Providers Name Role Phone Md GEOVANNY Garcia Primary Care Provider Encounter Details Date Type Department Care Team Description 01/09/2007 PN Conversion Only [facility] [address] Radiology [address] [place], [place] [address] Social History Tobacco Use Types Packs/Day Years Used Date Smoking Tobacco: Never Assessed Sex Assigned at Date Recorded Not on file documented as of this encounter Plan of Treatment Upcoming Encounters Date Type Specialty Care Team Description 06/15/2022 Appointment Orthopedics Vanna Ulloa MD [address] [place], [place] [address] (Wo rk) documented as of this encounter Visit Diagnoses Not on filedocumented in this encounter Care Teams Nurse Staff Relationship Specialty Start Date End Date Md Garcia MD PCP - General 08/16/10 01/17/12 [place], [place] [address] documented as of this encounter
--- OUTSIDE RECORDS SUMMARY | 2022-04-22 14:07 | XMS_ITS | Encounter Summary ---
:1965 Author Organization [facility] Address [address] [place] [address] Care Team Providers Name Role Phone Md GEOVANNY Garcia Primary Care Provider Encounter Details Date Type Department Care Team Description 11/29/2006 Office Visit [place] [facility] Brenda Barnett, Therapy PT [address] [place] [address] [address] [phone] [place], [place] [address] (Wo rk) Social History Tobacco Use Types Packs/Day Years Used Date Smoking Tobacco: Never Assessed Sex Assigned at Date Recorded Not on file documented as of this encounter Plan of Treatment Upcoming Encounters Date Type Specialty Care Team Description 06/15/2022 Appointment Orthopedics Vanna Ulloa MD [address] [place], [place] [address] (Wo rk) documented as of this encounter Visit Diagnoses Not on filedocumented in this encounter Care Teams Head Animal Keeper Relationship Specialty Start Date End Date Md Garcia MD PCP - General 08/16/10 01/17/12 [place], [place] [address] documented as of this encounter
--- OUTSIDE RECORDS SUMMARY | 2022-04-22 14:07 | XMS_ITS | Encounter Summary ---
:1965 Author Organization [facility] Address [address] [place] [address] Care Team Providers Name Role Phone Md GEOVANNY Garcia Primary Care Provider Encounter Details Date Type Department Care Team Description 10/24/2006 Office Visit [place] [facility] Brenda Barnett, Therapy PT [address] [place] [address] [address] [phone] [place], [place] [address] (Wo rk) Social History Tobacco Use Types Packs/Day Years Used Date Smoking Tobacco: Never Assessed Sex Assigned at Date Recorded Not on file documented as of this encounter Plan of Treatment Upcoming Encounters Date Type Specialty Care Team Description 06/15/2022 Appointment Orthopedics Vanna Ulloa MD [address] [place], [place] [address] (Wo rk) documented as of this encounter Visit Diagnoses Not on filedocumented in this encounter Care Teams Boring And Filling Machine Operator Relationship Specialty Start Date End Date Md Garcia MD PCP - General 08/16/10 01/17/12 [place], [place] [address] documented as of this encounter
--- OUTSIDE RECORDS SUMMARY | 2022-04-22 14:07 | XMS_ITS | Encounter Summary ---
:1965 Author Organization [facility] Address [address] [place] [address] Care Team Providers Name Role Phone Md GEOVANNY Garcia Primary Care Provider Reason for Visit Reason Comments Other Encounter Details Date Type Department Care Team Description 05/31/2008 Telephone [place] 1515 Obstet rics/Gynecology Center, Message Other [address] [facility] [place] [address] Social History Tobacco Use Types Packs/Day Years Used Date Smoking Tobacco: Never Assessed Sex Assigned at Date Recorded Not on file documented as of this encounter Progress Notes Center, Message - 05/31/2008 10:54 AM CST Phone Note filed by [employer] at 09/03/10 4523 Author: [employer] Service: (none) Author Type: (none) Filed: 09/03/10 3164 Note Time: 05/31/08 1054 Status: Signed Cage Maker Machine: [employer] Front Line Sx Call Caller Name/Relationship:Liz Primary Ice Cream Shop Associate:Chavo Symptom or request? pt is calling about period concern, pt is going on vacation and would like to manipulate cycle so it is not going during vacation Is appointment scheduled & when? Health Management Consultant:Liz Best call back number:[phone] Is it OK to leave a confidential message on this voicemail? yes *ECODE~PNSX2 Created on 31May2008 10:54am by GREGORY LIN On 31May2008 11:01am HERBIE BARBOUR wrote: MESSAGE TO CARE TEAM NAME OF CALLER: Liz NAME OF CLINICIAN: Dr Tony MESSAGE: Patient will be on vacation/honeymoon 06/23/08. Due to have her menstrual period that day. Asking if there is some way to delay her period. Not currently on control pills. LMP was 05/27/08. PHARMACY NAME: [facility] PHONE #: [phone] CITY: [place] CALL BACK PHONE OR CELL PHONE: [phone] BEST TIME TO CALL BACK: IS IT OK TO LEAVE A CONFIDENTIAL MESSAGE ON THIS VOICEMAIL? y *ECODE~PNMSG On 31May2008 11:47am PATRICE TONY wrote: followed by Dr Ahumada for Lighting Adviser and he did last pelvic. I do not believe I have done any routine stucco applicator care and not seen pt for almost 2 years. Acknowledged by PATRICE TONY on 11:47am Acknowledged by FRANKIE LEMA on 12:54pm On 03Jun2008 10:51am KEE AHUMADA wrote: Patient is overdue for exam. Acknowledged by KEE AHUMADA on 10:51am On 03Jun2008 11:57am ATUL PEREZ wrote: Pt notified of above. Will make appointment for Well exam. Note complete. OXIDE MILL TENDER documented in this encounter Plan of Treatment Upcoming Encounters Date Type Specialty Care Team Description 06/15/2022 Appointment Orthopedics Vanna Ulloa MD [address] [place], [place] [address] (Wo rk) documented as of this encounter Visit Diagnoses Not on filedocumented in this encounter Care Teams Parts Counter Sales Person Relationship Specialty Start Date End Date Md Garcia MD PCP - General 08/16/10 01/17/12 [place] [address] documented as of this encounter
--- OUTSIDE RECORDS SUMMARY | 2022-04-22 14:07 | XMS_ITS | Encounter Summary ---
:1965 Author Organization [facility] Address [address] [place] [address] Care Team Providers Name Role Phone Md GEOVANNY Garcia Primary Care Provider Reason for Visit Reason Comments Other Encounter Details Date Type Department Care Team Description [facility]/2008 [facility] Other [address] [facility] [place] [address] Social History Tobacco Use Types Packs/Day Years Used Date Smoking Tobacco: Never Assessed Sex Assigned at Date Recorded Not on file documented as of this encounter Progress Notes Center, Message - 02/26/2008 9:34 AM CDT Phone Note filed by [employer] at 09/03/10752 Author: [employer] Service: (none) Author Type: (none) Filed: 09/03/10752 Note Time: 02/26/08933 Status: Signed Home Health Occupational Therapist: [employer] Front Line Sx Call Caller Name/Relationship:Josselyn/[facility] Primary Sharebroker:Idris Symptom or request?Josselyn would like to discuss pt diabetes Is appointment scheduled & when?no Construction Quality Control Manager:Josselyn Best call back number:[phone] Is it OK to leave a confidential message on this voicemail?n *ECODE~PNSX2 Created on 26Feb2008 9:34am by VANNA GARCIA On 26Feb2008 9:47am SHAKIRA QUINONES wrote: MESSAGE TO CARE TEAM NAME OF CALLER:[facility] for Liz (patient) NAME OF CLINICIAN:Idris MESSAGE:Josselyn, requesting Insulin order for Liz Phelps (patient) who is willing to start on insulin. Fasting blood sugar this morning 291. Yesterday before lunch, 370. Blood sugars in 200-300's. Patient is having blurry vision, feeling very fatigued and general malaise.Is currently on Metformin 500 mg BID. CALL BACK PHONE OR CELL PHONE:[phone] BEST TIME TO CALL BACK:any IS IT OK TO LEAVE A CONFIDENTIAL MESSAGE ON THIS VOICEMAIL?y *ECODE~PNMSG On 26Feb2008 10:20am PATRICE BANEGAS wrote: ok for insulin start per guidelines Acknowledged by PATRICE BANEGAS on 10:20am On 26Feb2008 10:38am FRANKIE LEMA wrote: josselyn informed we will fax the order over Acknowledged by FRANKIE LEMA on 10:38am ILE PAD MECHANIC documented in this encounter Plan of Treatment Upcoming Encounters Date Type Specialty Care Team Description 06/15/2022 Appointment Orthopedics Vanna Ulloa MD [address] [facility] [place] [address] (Wo rk) documented as of this encounter Visit Diagnoses Not on filedocumented in this encounter Care Teams Correspondence Dictator Relationship Specialty Start Date End Date Md Garcia MD PCP - General 08/16/10 01/17/12 [place] [address] documented as of this encounter
--- OUTSIDE RECORDS SUMMARY | 2022-04-22 14:07 | XMS_ITS | Encounter Summary ---
:1965 [facility] Address [address] [place] [address] Care Team Providers Name Role Phone Md GEOVANNY Garcia Primary Care Provider Encounter Details Date Type Department Care Team Description 06/06/2008 Office Visit [facility] 1515 Kee Ahumada MD Obstetrics/Gynecolog y 1515 [facility] 1515 [facility] . [address] [place] [address] [place] [address] [phone] (Wo rk) Social History Tobacco Use Types Packs/Day Years Used Date Smoking Tobacco: Never Assessed Sex Assigned at Date Recorded Not on file documented as of this encounter Last Filed Vital Signs Vital Sign Reading Time Taken Comments Blood Pressure 110/82 06/06/2008 9:50 AM GRAY MIXING OPERATOR Pulse - - Temperature - - Respiratory Rate - - Oxygen Saturation - - Inhaled Oxygen Concentration - - Weight 118.7 kg (261 lb 11 oz) 06/06/2008 9:50 AM C: 11 8.7kg GRAY MIXING OPERATOR Height 170.2 cm (5' 7) 06/06/2008 9:50 AM C: 170.2cm GRAY MIXING OPERATOR Body Mass Index 40.99 06/06/2008 9:50 AM GRAY MIXING OPERATOR documented in this encounter Progress Notes Kee Ahumada MD - 06/06/2008 12:01 AM CST Progress Notes signed by Kee Ahumada MD at 06/06/08 1402 Author: Kee Ahumada MD Service: (none) Author Type: Physician Filed: 09/05/10 1016 Note Time: 06/06/08 0001 Status: Signed Upholstered Goods Crafter: Kee Ahumada MD (Physician) NAME: MARCELO BECK MR#: [id number] ACCT: [id number] VISIT: [id number] DICTATING CLINICIAN: KEE AHUMADA MD CONFIRM #: [id number] LOC: 3212 CLINIC PROGRESS NOTE DATE OF VISIT: 06/06/2008 SUBJECTIVE: Patient is a 42-year-old, 3-0-2-3, LMP 05/28/08, here today for an annual exam. Her only concern today is that she is going to be traveling in early June when she is expecting her next menses, and she would like to try and somehow avoid that. I advised her that, unfortunately, she is a smoker we could not use OCPs. We can try, perhaps, progesterone only to delay the onset of her menses, although I advised her that this may not work. PAST MEDICAL HISTORY: She has had a tubal ligation, ankle fracture, depression, type 2 diabetes. FAMILY HISTORY: Significant for diabetes and cancer in her mother. Diabetes in her maternal grandfather. MEDICATIONS: Prilosec, multivitamin, and Nasonex. ALLERGIES: SHE HAS NO ALLERGIES. SOCIAL HISTORY: She is . 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 She has 3 children, ages 9, 19 and 23. She smokes 3/4 of a pack of cigarettes per day. Uses alcohol and caffeine in moderation. Denies drug use. She exercises with a stationary bike about 2 to 4 times per week. Does a monthly breast self exam. She does wear seat belt. OBJECTIVE: VS: BP: 110/82. Ht: 67 in. Wt: 261.7 lb. GENERAL: Exam is performed with a nurse present in the room. CHEST: Clear to auscultation. HEART: Regular rate and rhythm. Normal S1, S2. No murmurs. BREASTS: Without masses or discharge bilaterally. The axillae are without masses. ABDOMEN: Obese, soft, nontender without masses. EXTREMITIES: Woman cords or edema. PELVIC EXAM: External genitalia, urethra and vagina without lesions. Cervix appears parous. Pap smear is obtained. On bimanual exam, uterus is normal size mid position. No adnexal masses are noted. Exam somewhat limited by patient's obesity. ASSESSMENT: Normal annual exam. PLAN: We will notify patient of Pap results when available. She will schedule mammogram. I gave her a prescription for Prometrium 200 mg a day to take 7 days prior to her trip and to continue for 14 days. I advised her, again, that this might not necessarily lessen or delay her bleeding, but it is a safe option at this point. She will return in 1 year for an annual exam, sooner p.r.n. DAD:[id number] C: 06/06/08 12:36 CONFIRM #: [id number] MIXING OPERATOR documented in this encounter Plan of Treatment Upcoming Encounters Date Type Specialty Care Team Description 06/15/2022 Appointment Orthopedics Vanna Ulloa MD [address] [place], [place] [phone] (Wo rk) documented as of this encounter Visit Diagnoses Not on filedocumented in this encounter Care Teams Director Cost Relationship Specialty Start Date End Date Md Garcia MD PCP - General 08/16/10 01/17/12 [place] [address] documented as of this encounter
--- OUTSIDE RECORDS SUMMARY | 2022-04-22 14:07 | XMS_ITS | Encounter Summary ---
:1965 Author Organization [facility] Address [address] [place] [address] Care Team Providers Name Role Phone Md GEOVANNY Garcia Primary Care Provider Encounter Details Date Type Department Care Team Description 02/07/2007 PN Conversion Only [facility] [address] ad[address] [place] [address] Social History Tobacco Use Types Packs/Day Years Used Date Smoking Tobacco: Never Assessed Sex Assigned at Date Recorded Not on file documented as of this encounter Plan of Treatment Upcoming Encounters Date Type Specialty Care Team Description 06/15/2022 Appointment Orthopedics Vanna Ulloa MD [address] [place], [place] [address] (Wo rk) documented as of this encounter Procedures Procedure Name Priority Date/Time Associated Diagnosis Comme nts MM US BREAST UNILAT Routine 02/07/2007 11:25 AM R esults for this ([facility]BC) CDT procedure are i n the results section. documented in this encounter Results MM US Breast Unilat ([facility]BC) (02/07/2007 11:25 AM CDT) Anatomical Region Laterality Modality Breast Ultrasound Specimen (Source) Anatomical Location Collection Method / Collectio n Time Received Time / Laterality Volume Narrative 02/09/2007 4:23 PM CDT As a followup to the screening exam from 01/30/2007, which showed a nodular density in the anterior breast. LEFT BREAST SONOGRAM: ??At 4 o'clock zon e 1 is what appears to represent a normal intramammary lymph no de measuring 7 x 3.5 mm. ??An ovoid hypoechoic nodule with central hyp erechoic focus. ??To document stability, a 4-month followup mammogram of the left breast will be requested to document stability or regre ssion of the node. ACR-BIRADS CATEGORY 3: ??Probably benign finding - short-interval followup. [id number] Dictating SALVATORE MENA RADIOLOGIST Procedure Note Salvatore Verde MD - 07/19/2016Fo rmatting of this note might be different from the original. As a followup to the screening exam from 01/30/2007, which showed a nodular density in the anterior breast. LEFT BREAST SONOGRAM: At 4 o'clock zone 1 is what appears to represent a normal intramammary lymph no de measuring 7 x 3.5 mm. An ovoid hypoechoic nodule with central hyp erechoic focus. To document stability, a 4-month followup mammogram of the left breast will be requested to document stability or regre ssion of the node. ACR-BIRADS CATEGORY 3: Probably benign f inding - short-interval followup. [id number] Dictating SALVATORE MENA RADIOLOGIST Manan Ahumada MD RAD [place] documented in this encounter Visit Diagnoses Not on filedocumented in this encounter Care Teams Lumber Marker Relationship Specialty Start Date End Date Md Garcia MD PCP - General 08/16/10 01/17/12 [place] [address] documented as of this encounter
--- OUTSIDE RECORDS SUMMARY | 2022-04-22 14:08 | XMS_ITS | Encounter Summary ---
:1965 [facility] Address [address] [place] [address] Care Team Providers Name Role Phone Md GEOVANNY Garcia Primary Care Provider Encounter Details Date Type Department Care Team Description 08/09/2006 Office Visit [facility] Mian Tony MD 1415 [facility] . [address] [place] [address] [place] [address] [phone] (Wo rk) Social History Tobacco Use Types Packs/Day Years Used Date Smoking Tobacco: Never Assessed Sex Assigned at Date Recorded Not on file documented as of this encounter Last Filed Vital Signs Vital Sign Reading Time Taken Comments Blood Pressure 130/82 08/09/2006 11:06 AM CDT Pulse 84 08/09/2006 11:06 AM CDT Temperature - - Respiratory Rate - - Oxygen Saturation - - Inhaled Oxygen Concentration - - Weight 125.2 kg (275 lb 15.9 08/09/2006 11:06 AM C: 125 .2kg oz) CDT Height - - Body Mass Index 44.21 10/20/2005 2:53 PM CDT documented in this encounter Progress Notes Mian Tony MD - 08/09/2006 12:01 AM CDT Progress Notes signed by Mian Tony MD at 08/09/06 1217 Author: Mian Tony MD Service: (none) Author Type: Physician Filed: 09/04/10 1813 Note Time: 08/09/06 0001 Status: Signed Embalmer Assistant: Mian Tony MD (Physician) SUBJECTIVE: 40 year old female comes in complaint of three day history of right ankle pain over the lateral aspect. No recent injury. The pain is intermittent. It can be severe. No swelling. No redness. Previous lateral malleolus fracture 02/2005. The patient had apparently been doing okay but then developed the symptoms as above. Past Medical History: Reviewed today in the Health Profile in Last[employer]. Adverse Drug Reactions: Reviewed today and updated in Health Profile in [employer]. Medications: Reviewed today and updated in Health Profile in [employer]. OBJECTIVE: Vital Signs : Reviewed; See Flowsheet Charting in [employer]. General: No acute distress. Alert and oriented. Extremities: Right ankle without any swelling or redness. Minimal tenderness posterior to the lateral malleolus. Good xuwle-ni-hbuctj. Ligaments intact. No tenderness of foot. The patient is able to ambulate. X-ray of the right ankle as ordered and interpreted by me shows some calcifications near the lateral joint. No acute fracture. ASSESSMENT: Right ankle pain. PLAN: The patient is concerned that this may be related to her previous ankle fracture. I will have the patient consult with orthopedics regarding her ankle pain. The patient was discharged in stable condition. *SH~DNS~SOAP documented in this encounter Plan of Treatment Upcoming Encounters Date Type Specialty Care Team Description 06/15/2022 Appointment Orthopedics Vanna Ulloa MD [address] [facility] [place] [address] (Wo rk) documented as of this encounter Procedures Procedure Name Priority Date/Time Associated Diagnosis Comme nts XR ANKLE RT 3 VIEWS Routine 08/09/2006 11:28 AM R esults for this CDT procedure are i n the results section. documented in this encounter Results XR Ankle Rt 3 Views (08/09/2006 11:28 AM CDT) Anatomical Region Laterality Modality Lower Extremity, Ankle, Foot & Ankle Oth er Specimen (Source) Anatomical Location Collection Method / Collectio n Time Received Time / Laterality Volume Narrative 08/09/2006 11:28 AM CDT When compared to exam 03/29/2005, no acute fracture is seen. 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 ??There is no other significan t bone or joint change identified. ??No significant soft tissue swelling is seen at the ankle on the present exam. [id number] Dictating CONOR ONTIVEROS RADIOLOGIST Procedure Note Meme Escamilla - 07/19/2016 When compared to exam 03/29/2005, no acu te fracture is seen. 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 There is no other significant bone or joint change identified. No significant soft tissue s welling is seen at the ankle on the present exam. [id number] Dictating CONOR ONTIVEROS RADIOLOGIST Mian Tony MD RAD GD documented in this encounter Visit Diagnoses Not on filedocumented in this encounter Care Teams Compo Caster Relationship Specialty Start Date End Date Md Garcia MD PCP - General 08/16/10 01/17/12 [place] [address] documented as of this encounter
--- OUTSIDE RECORDS SUMMARY | 2022-04-22 14:08 | XMS_ITS | Encounter Summary ---
:1965 Author Organization [facility] Address [address] [place] [address] Care Team Providers Name Role Phone Md GEOVANNY Garcia Primary Care Provider Reason for Visit Reason Comments Other Encounter Details Date Type Department Care Team Description 09/05/2006 Telephone CONV Farhat Posada MD Other 1415 [facility] [address] [place] [address] [address] [place], [place] [phone] (Wo rk) Social History Tobacco Use Types Packs/Day Years Used Date Smoking Tobacco: Never Assessed Sex Assigned at Date Recorded Not on file documented as of this encounter Progress Notes Center, Message - 09/05/2006 3:35 PM CDT Phone Note filed by [employer] at 09/01/101928 Author: [employer] Service: (none) Author Type: (none) Filed: 09/01/101928 Note Time: 09/05/06 1535 Status: Signed Adjunct Political Science Instructor: Message Center MESSAGE TO CARE TEAM NAME OF CALLER:Liz NAME OF CLINICIAN:Gerry MESSAGE:pt calling about seeing someone in [facility] before the 12 of October pt states she was supposed to get a call about this. PHARMACY NAME: PHARMACY PHONE #: CITY: CALL BACK PHONE OR CELL PHONE:[phone] BEST TIME TO CALL BACK:anytime IS IT OK TO LEAVE A CONFIDENTIAL MESSAGE ON THIS VOICEMAIL? yes Created on 05Sep2006 3:35pm by GREGORY LIN On 20Oct2006 10:47am FARHAT MENDES wrote: pt has seen Dr. Vides Acknowledged by FARHAT MENDSE on 10:47am TECHNICIAN documented in this encounter Plan of Treatment Upcoming Encounters Date Type Specialty Care Team Description 06/15/2022 Appointment Orthopedics Vanna Ulloa MD [address] [facility] [place] [address] (Wo rk) documented as of this encounter Visit Diagnoses Not on filedocumented in this encounter Care Teams Bead Builder Relationship Specialty Start Date End Date Md Garcia MD PCP - General 08/16/10 01/17/12 [facility] [place] [address] documented as of this encounter
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
--- OUTSIDE RECORDS SUMMARY | 2022-04-22 14:08 | XMS_ITS | Encounter Summary ---
:1965 Author Organization [facility] Address [address] [place] [address] Care Team Providers Name Role Phone Md GEOVANNY Garcia Primary Care Provider Encounter Details Date Type Department Care Team Description 08/16/2006 Office Visit CONV Farhat Posada MD 1415 [facility] [address] [place] [address] [address] [place], [place] [phone] (Wo rk) Social History Tobacco Use Types Packs/Day Years Used Date Smoking Tobacco: Never Assessed Sex Assigned at Date Recorded Not on file documented as of this encounter Progress Notes Farhat Garrett MD - 08/16/2006 12:01 AM CDT Progress Notes signed by Farhat Garrett MD at 08/23/06 0827 Author: Farhat Garrett MD Service: (none) Author Type: Physician Filed: 09/04/10 1822 Note Time: 08/16/06 0001 Status: Signed Compounder Sterile Products: Farhat Grarett MD (Physician) NAME: MARCELO LUAN MR#: [id number] ACCT: [id number] VISIT: [id number] DICTATING CLINICIAN: FARHAT GARRETT MD JOB: [id number] LOC: 1211 CLINIC PROGRESS NOTE DATE OF VISIT: 08/16/2006 SUBJECTIVE: CHIEF COMPLAINT: Right ankle pain. HISTORY: Marcelo is a 40-year-old female seen as a consult per request of Dr. Mian Justice. She has complaints of right ankle pain. She reports that originally her difficulty with her right ankle started approximately a year and a half ago when she had an ankle fracture, which was treated nonoperatively. Review of medical record indicates that this was a lateral malleolus fracture treated nonoperatively. She more recently has been having difficulty with pain in her ankle again primarily with excessive walking, particularly she notes if it is on uneven ground. She has not undergone any physical therapy or other treatments for the problem as of yet. PAST MEDICAL HISTORY: Reviewed in the electronic medical record 08/16/06 and is up to date. OBJECTIVE: VS: Ht: 5 ft 6 in. Wt: 276 lb. Patient is a very pleasant appearing 40-year-old female in no acute distress or discomfort. She ambulates with a normal appearing gait. LOWER EXTREMITIES: Examination reveals normal alignment of the ankle and hindfoot. Skin is intact without erythema or rashes. There is no significant swelling noted about the ankle. She seems to localize most of her pain in the lateral aspect of the ankle and distal to the tip of the fibula. Ankle feels ligamentously stable. Strength is 5 out of 5. Sensation is intact. Pulses are intact. IMAGING STUDIES: X-rays of the ankle are reviewed which, going back to the original ankle x-rays in 2004, show evidence of a lateral malleolus fracture which was treated nonoperatively. It appears to have gone on to heal. On the current x-rays there does appear to be some subtle narrowing in the lateral aspect of the joint between the distal fibula and talus. Ankle mortis otherwise appears well maintained. X-rays overall are otherwise unremarkable. ASSESSMENT: Right ankle pain. PLAN: Discussed various options with the patient. I would like to obtain an MRI of her right ankle. She will return to review the results of the study once it is completed. DFL:[id number] C: 08/20/06 13:35 DOCUMENT: [id number] documented in this encounter Plan of Treatment Upcoming Encounters Date Type Specialty Care Team Description 06/15/2022 Appointment Orthopedics Vanna Ulloa MD [address] [facility] [address] [place] [address] (Wo rk) documented as of this encounter Visit Diagnoses Not on filedocumented in this encounter Care Teams Mold Puller Relationship Specialty Start Date End Date Md Garcia MD PCP - General 08/16/10 01/17/12 [place] [address] documented as of this encounter
--- OUTSIDE RECORDS SUMMARY | 2022-04-22 14:08 | XMS_ITS | Encounter Summary ---
:1965 Author [facility] Address [address] [place] [address] Care Team Providers Name Role Phone Md GEOVANNY Garcia Primary Care Provider Reason for Visit Reason Comments Other Encounter Details Date Type Department Care Team Description 12/13/2005 Telephone [facility] Chanda Andino [address] [facility] [place] [address] Social History Tobacco Use Types Packs/Day Years Used Date Smoking Tobacco: Never Assessed Sex Assigned at Date Recorded Not on file documented as of this encounter Progress Notes Chanda Andino - 12/13/2005 10:50 PM CDT Phone Note filed by Chanda Andino RN at 09/01/1033 Author: Chanda Andino RN Service: (none) Author Type: Registered Nurse Filed: 09/01/1054 Note Time: 12/13/052249 Status: Signed Field Crop Harvest Contractor: Chanda Andino RN (Registered Nurse) CLINICIAN FOLLOW-UP: None IMPRESSION: Rectal Bleeding SEMI-URGENT SYMPTOMS: Bright red rectal bleeding, Symptoms: Patient has had bright red bleeding with each of the 3 BM's today. 3 BM's in one day not unusual. Sees blood in toilet and with wiping. No bleeding or spotting without BM. Said the last time bleeding seemed almost as much as a period. [place] a little internal pain with BM. Stools soft. Hx of hemorroids. Doesn't think that's cause of bleeding now. Denies any emergent symptoms PATIENT INFORMATION: Problem List: Reviewed today in LastWord --- Medications: Reviewed/updated today in LastWord INTERIM/HOME MANAGEMENT RECOMMENDATIONS:If bleeding increases or comes without BM,need to go to ER. Appt made for tomorrow am. Advised to call back if any other questions or concerns. PLAN: SCHEDULE APPOINTMENT WITHIN 12 HOURS Patient/Caller agrees with plan and denies additional questions. Reference(s) Used: [facility] Rectal Pain, Bleeding, Itching Nursing Reference - Adult, Call Complete. *SH~PNNL~RECTAL ~ Created on 13Dec2005 10:50pm by CHANDA ANDINO GER RADIATION documented in this encounter Plan of Treatment Upcoming Encounters Date Type Specialty Care Team Description 06/15/2022 Appointment Orthopedics Vanna Ulloa MD [address] [place], [place] [address] (Wo rk) documented as of this encounter Visit Diagnoses Not on filedocumented in this encounter Care Teams Plate Worker Relationship Specialty Start Date End Date Md Garcia MD PCP - General 08/16/10 01/17/12 [place] [address] documented as of this encounter
--- OUTSIDE RECORDS SUMMARY | 2022-04-22 14:08 | XMS_ITS | Encounter Summary ---
:1965 Author Organization [facility] Address [address] [place] [address] Care Team Providers Name Role Phone Md GEOVANNY Garcia Primary Care Provider Encounter Details Date Type Department Care Team Description 09/30/2006 Office Visit [place] Occup[facility] Orestes Perez [place], [place] [address] [place] [address] Social History Tobacco Use Types Packs/Day Years Used Date Smoking Tobacco: Never Assessed Sex Assigned at Date Recorded Not on file documented as of this encounter Plan of Treatment Upcoming Encounters Date Type Specialty Care Team Description 06/15/2022 Appointment Orthopedics Vanna Ulloa MD [address] [place], [place] [address] (Wo rk) documented as of this encounter Visit Diagnoses Not on filedocumented in this encounter Care Teams Die Trimmer Relationship Specialty Start Date End Date Md Garcia MD PCP - General 08/16/10 01/17/12 [place], [place] [phone] documented as of this encounter
--- OUTSIDE RECORDS SUMMARY | 2022-04-22 14:08 | XMS_ITS | Encounter Summary ---
:1965 Author Organization [facility] Address [address] [place] [address] Care Team Providers Name Role Phone Md GEOVANNY Garcia Primary Care Provider Encounter Details Date Type Department Care Team Description 09/30/2006 PN Conversion Only AIRPORT CONVERSION [address] [place] [address] Social History Tobacco Use Types Packs/Day Years Used Date Smoking Tobacco: Never Assessed Sex Assigned at Date Recorded Not on file documented as of this encounter Plan of Treatment Upcoming Encounters Date Type Specialty Care Team Description 06/15/2022 Appointment Orthopedics Vanna Ulloa MD [address] [place], [place] [phone] (Wo rk) documented as of this encounter Visit Diagnoses Not on filedocumented in this encounter Care Teams Nitrator Operator Relationship Specialty Start Date End Date Md Garcia MD PCP - General 08/16/10 01/17/12 [place], [place] [phone] documented as of this encounter
--- OUTSIDE RECORDS SUMMARY | 2022-04-22 14:08 | XMS_ITS | Encounter Summary ---
:1965 Author Organization [facility] Address [address] [place] [address] Care Team Providers Name Role Phone Md GEOVANNY Garcia Primary Care Provider Encounter Details Date Type Department Care Team Description 04/28/2006 Nursing Visit [place] Fran Melgar MD Medicine [address] [place] [address] [place], [place] [address] Social History Tobacco Use Types Packs/Day Years Used Date Smoking Tobacco: Never Assessed Sex Assigned at Date Recorded Not on file documented as of this encounter Plan of Treatment Upcoming Encounters Date Type Specialty Care Team Description 06/15/2022 Appointment Orthopedics Vanna Ulloa MD [address] [place], [place] [address] (Wo rk) documented as of this encounter Visit Diagnoses Not on filedocumented in this encounter Care Teams Functional Tester Typewriters Relationship Specialty Start Date End Date Md Garcia MD PCP - General 08/16/10 01/17/12 [place], [place] [phone] documented as of this encounter
--- OUTSIDE RECORDS SUMMARY | 2022-04-22 14:08 | XMS_ITS | Encounter Summary ---
:1965 Author Organization [facility] Address [address] [place] [address] Care Team Providers Name Role Phone Md GEOVANNY Garcia Primary Care Provider Encounter Details Date Type Department Care Team Description 10/28/2005 PN Conversion Only CONV PULMONARY Jorge Denton MD [address] [place] [phone] (Wo rk) Social History Tobacco Use Types Packs/Day Years Used Date Smoking Tobacco: Never Assessed Sex Assigned at Date Recorded Not on file documented as of this encounter Plan of Treatment Upcoming Encounters Date Type Specialty Care Team Description 06/15/2022 Appointment Orthopedics Vanna Ulloa MD [address] [place], [place] [address] (Wo rk) documented as of this encounter Visit Diagnoses Not on filedocumented in this encounter Care Teams Patternmaker Apprentice Metal Relationship Specialty Start Date End Date Md Garcia MD PCP - General 08/16/10 01/17/12 [place], [place] [phone] documented as of this encounter
--- OUTSIDE RECORDS SUMMARY | 2022-04-22 14:08 | XMS_ITS | Encounter Summary ---
:1965 Author Organization [facility] Address [address] [place] [address] Care Team Providers Name Role Phone Md GEOVANNY Garcia Primary Care Provider Encounter Details Date Type Department Care Team Description 08/19/2006 Office Visit CONV Farhat Posada MD [address] [facility] [address] [place] [address] [address] [place], [place] [phone] (Wo rk) Social History Tobacco Use Types Packs/Day Years Used Date Smoking Tobacco: Never Assessed Sex Assigned at Date Recorded Not on file documented as of this encounter Progress Notes Farhat Garrett MD - 08/19/2006 12:01 AM CDT Progress Notes signed by Farhat Garrett MD at 08/23/06 0828 Author: Farhat Garrett MD Service: (none) Author Type: Physician Filed: 09/04/10 1826 Note Time: 08/19/062022 Status: Signed Laboratory Administrative Director: Farhat Garrett MD (Physician) NAME: MARCELO LUNA MR#: [id number] ACCT: [id number] VISIT: [id number] DICTATING CLINICIAN: FARHAT GARRETT MD JOB: [id number] LOC: 1211 CLINIC PROGRESS NOTE DATE OF VISIT: 08/19/2006 SUBJECTIVE: CHIEF COMPLAINT: Follow up of right ankle MRI. HISTORY: Marcelo returns to review results of ankle MRI. She was seen on 08/16/06. Original injury was in 2004 when she had an ankle fracture, reportedly treated nonoperatively. Symptoms have not changed in the interim. MRI has been obtained in the interim. OBJECTIVE: Physical exam is unchanged from 08/16/06. IMAGING STUDIES: MRI of ankle is reviewed. There is evidence of the previous fracture noted. There is also noted to be evidence of joint effusion present. ASSESSMENT: Right ankle pain with history of previous lateral malleolus fracture. PLAN: Discussed treatment options with the patient. Reviewed her MRI results with her. There does appear to be evidence of an effusion in the tibiotalar joint, and the radiology report indicates presence of a small one in the subtalar joint as well. The radiology report also indicates presence of marrow edema within the lateral malleolus at the tip. I discussed with the patient that I do not necessarily have a clear etiology for her pain. I would like to get a second opinion from one of our foot and ankle specialists. Hard copy of the patient's MRI with the report will be provided to her, and she will be set up to obtain a second opinion. DFL:[id number] C: 08/20/06 13:43 DOCUMENT: [id number] documented in this encounter Plan of Treatment Upcoming Encounters Date Type Specialty Care Team Description 06/15/2022 Appointment Orthopedics Vanna Ulloa MD [address] [place], [place] [address] (Wo rk) documented as of this encounter Visit Diagnoses Not on filedocumented in this encounter Care Teams Toxics Program Officer Relationship Specialty Start Date End Date Md Garcia MD PCP - General 08/16/10 01/17/12 [place] [address] documented as of this encounter
--- OUTSIDE RECORDS SUMMARY | 2022-04-22 14:08 | XMS_ITS | Encounter Summary ---
:1965 Author Organization [facility] Address [address], [place] [address] Care Team Providers Name Role Phone Md GEOVANNY Garcia Primary Care Provider Encounter Details Date Type Department Care Team Description 12/14/2005 PN Conversion Only [place] CONVERSION Tanya Corona, [address] [facility] [place] [address] [address] [place] [place], [place] [address] (Wo rk) Social History Tobacco Use Types Packs/Day Years Used Date Smoking Tobacco: Never Assessed Sex Assigned at Date Recorded Not on file documented as of this encounter Plan of Treatment Upcoming Encounters Date Type Specialty Care Team Description 06/15/2022 Appointment Orthopedics Vanna Ulloa MD [address] [place], [place] [address] (Wo rk) documented as of this encounter Procedures Procedure Name Priority Date/Time Associated Diagnosis Comme nts OCCULT BLOOD, EXAM Routine 12/14/2005 10:06 AM Re sults for this 1 CDT procedure are i n the results section. COMPLETE BLOOD Routine 12/14/2005 10:06 AM Result s for this COUNT-W/DIFF CDT procedure are i n the results section. documented in this encounter Results Complete Blood Count-W/Diff (12/14/2005 10:06 AM CDT) [facility] Method Time Signature White Blood Cell 7.7 3.8 - 11.0 HP CONVERSIO N Count K/cmm Red Blood Cell 4.85 3.70 - HP CONVERSION Count 5.20 m/cmm Hemoglobin 15.1 11.8 - HP CONVERSION 15.5 gm/dL Hematocrit 43.9 35.0 - HP CONVERSION 46.0 % Mean Corpuscular 90.6 80.0 - HP CONVERSION Volume 100.0 fl Mean Corpuscular 31.1 27.0 - HP CONVERSION Hemoglobin 34.0 pg Mean Corpuscular 34.4 32.0 - HP CONVERSION Hemoglobin Conc 36.5 gm/dL [place] RDW 12.8 11.0 - HP CONVERSION 15.0 % Platelet Count 276 140 - 450 HP CONVERSION k/cmm Differential Auto-Dif No normal HP CONVERSION Verify range Neutrophils 4.7 2.0 - 7.5 HP CONVERSION Absolute Count K/cmm Neutrophil 60.9 50.0 - HP CONVERSION 75.0 % Lymphocyte % 27.0 20.0 - HP CONVERSION 40.0 % Monocyte 7.7 5.0 - 14.0 HP CONVERSION % Eosinophil 3.6 0.0 - 6.0 HP CONVERSION % Basophil % 0.8 0.0 - 2.0 HP CONVERSION % Specimen (Source) Anatomical Collection Method Collection Time Re ceived Time Location / / Volume Laterality 12/14/2005 10:06 AM CDT Tanya Corona MD LAB_1 Performing Organization Address City/State/ZIP Code Phon e Number HP CONVERSION (ABNORMAL) Occult Blood, Exam 1 (12/14/2005 10:06 AM CDT) [facility] gist Method Time Signature Occult Blood, Positive (A) Negative HP CONVERSION Stool #1 Date/Time #1 [id number] No normal HP CONVERSION range Specimen (Source) Anatomical Collection Method Collection Time Re ceived Time Location / / Volume Laterality 12/14/2005 10:06 AM CDT Tanya Corona MD LAB_1 Performing Organization Address City/State/ZIP Code Phon e Number HP CONVERSION documented in this encounter Visit Diagnoses Not on filedocumented in this encounter Care Teams Associate Professor Of English Relationship Specialty Start Date End Date Md Garcia MD PCP - General 08/16/10 01/17/12 [place], [place] [phone] documented as of this encounter
--- OUTSIDE RECORDS SUMMARY | 2022-04-22 14:08 | XMS_ITS | Encounter Summary ---
:1965 Author Organization [facility] Address [address] [place] [address] Care Team Providers Name Role Phone Md GEOVANNY Garcia Primary Care Provider Encounter Details Date Type Department Care Team Description 10/21/2005 PN Conversion Only CONV PULMONARY Jorge Denton MD [address] [place] [phone] (Wo rk) Social History Tobacco Use Types Packs/Day Years Used Date Smoking Tobacco: Never Assessed Sex Assigned at Date Recorded Not on file documented as of this encounter Plan of Treatment Upcoming Encounters Date Type Specialty Care Team Description 06/15/2022 Appointment Orthopedics Vanna Ulloa MD [address] [place], [place] [address] (Wo rk) documented as of this encounter Visit Diagnoses Not on filedocumented in this encounter Care Teams Pin Chaser Relationship Specialty Start Date End Date Md Garcia MD PCP - General 08/16/10 01/17/12 [place], [place] [phone] documented as of this encounter
--- OUTSIDE RECORDS SUMMARY | 2022-04-22 14:08 | XMS_ITS | Encounter Summary ---
:1965 Author Organization [facility] Address [address] [place] [address] Care Team Providers Name Role Phone Md GEOVANNY Garcia Primary Care Provider Encounter Details Date Type Department Care Team Description 09/20/2006 Office Visit [facility] Jelani Carlin MD [address] [facility] . [address] [place] [address] [place] [address] [phone] (Wo rk) Social History Tobacco Use Types Packs/Day Years Used Date Smoking Tobacco: Never Assessed Sex Assigned at Date Recorded Not on file documented as of this encounter Last Filed Vital Signs Vital Sign Reading Time Taken Comments Blood Pressure 130/74 09/20/2006 2:55 PM CDT Pulse 88 09/20/2006 2:55 PM CDT Temperature 36.8 ??C (98.2 ??F) 09/20/2006 2:55 PM ORAL C: 3 6.8 C CDT Respiratory Rate - - Oxygen Saturation - - Inhaled Oxygen Concentration - - Weight 124.3 kg (273 lb 15.8 09/20/2006 2:55 PM C: 124. 3kg oz) CDT Height - - Body Mass Index 43.89 10/20/2005 2:53 PM CDT documented in this encounter Progress Notes Jelani Carlin MD - 09/20/2006 12:01 AM CDT Progress Notes signed by Jelani Carlin MD at 09/20/06 1527 Author: Jelani Carlin MD Service: (none) Author Type: Physician Filed: 09/04/10 9535 Note Time: 09/20/06 0001 Status: Signed General Milling Superintendent: Jelani Carlin MD (Physician) Acute Clinic Visit IMPRESSION: Acute Viral Bronchitis SUBJECTIVE: History of Present Illness: Symptom(s): Fever. Fatigue. Malaise. Headache. No ear pain. Nasal congestion/rhinorrhea. Cough. Tightness in chest. No nausea. No vomiting. Fever: Duration: Yesterday. Degree not checked. Headache: Duration: Yesterday. Cough: Duration: 4 days. Severity: Moderate. Meds This Illness: No acute medications being used Past History: Allergic rhinitis, not currently taking medications Tobacco: Yes. Adverse Drug Reactions: None. Chronic Medications: Reviewed and updated today on Health Profile in [facility]. OBJECTIVE: Vital Signs: Vital Signs taken today were reviewed on the flowsheet in [facility]. General Appearance: Well-appearing Eyes: External exam is normal bilaterally Ears: Bilateral pinnae, canals and TMs normal Nose/Sinuses: Moderately congested, Clear drainage, Sinuses nontender to percussion Oropharynx: Normal, mucous membranes moist, tonsils symmetric without redness or exudate. Neck: Supple without significant adenopathy or thyromegaly Respiratory: Rhonchi present, Normal respiratory effort Cardiac: RRR without murmur Skin: Skin exam normal Lab & X-Ray: None ASSESSMENT: Acute Bronchitis, likely viral. She is at increased risk of bacterial infection due to smoking. PLAN: Prescriptions provided, see OP Med list on Health Profile in LastWord. Patient is to start antibiotic Rx in 3 days if the following symptoms develop: cough and congestion continue to worsen Doxycycline 100 mg. BID x 10d Robitussin w/ cod. 1-2 tsp. q4 hrs. PRN cough at home Tessalon Perles 100 mg TID PRN cough Symptomatic care Nutritious liquids RTC PRN if not gradually improving *SH~PC~URIL ~[place] Note completed on: 09/20/2006 3:27 PM documented in this encounter Plan of Treatment Upcoming Encounters Date Type Specialty Care Team Description 06/15/2022 Appointment Orthopedics Vanna Ulloa MD [address] [place] [address] (Wo rk) documented as of this encounter Visit Diagnoses Not on filedocumented in this encounter Care Teams Head School Custodian Relationship Specialty Start Date End Date Md Garcia MD PCP - General 08/16/10 01/17/12 [place] [address] documented as of this encounter
--- OUTSIDE RECORDS SUMMARY | 2022-04-22 14:08 | XMS_ITS | Encounter Summary ---
:1965 Author Organization [facility] Address [address] [place] [address] Care Team Providers Name Role Phone Md GEOVANNY Garcia Primary Care Provider Encounter Details Date Type Department Care Team Description 09/13/2006 [facility] Shruti Page MD [address] [facility] . [address] [place] [address] [place] [address] [phone] (Wo rk) Social History Tobacco Use Types Packs/Day Years Used Date Smoking Tobacco: Never Assessed Sex Assigned at Date Recorded Not on file documented as of this encounter Plan of Treatment Upcoming Encounters Date Type Specialty Care Team Description 06/15/2022 Appointment Orthopedics Vanna Ulloa MD [address] [place], [place] [address] (Wo rk) documented as of this encounter Visit Diagnoses Not on filedocumented in this encounter Care Teams Sawmill Worker Relationship Specialty Start Date End Date Md Garcia MD PCP - General 08/16/10 01/17/12 [place], [place] [address] documented as of this encounter
--- OUTSIDE RECORDS SUMMARY | 2022-04-22 14:08 | XMS_ITS | Encounter Summary ---
:1965 Author Organization [facility] Address [address] [place] [address] Care Team Providers Name Role Phone Md GEOVANNY Garcia Primary Care Provider Encounter Details Date Type Department Care Team Description [facility] [address] [address] [place] [address] [phone] [place] [address] (Wo rk) Social History Tobacco Use Types Packs/Day Years Used Date Smoking Tobacco: Never Assessed Sex Assigned at Date Recorded Not on file documented as of this encounter Plan of Treatment Upcoming Encounters Date Type Specialty Care Team Description 06/15/2022 Appointment Orthopedics Vanna Ulloa MD [address] [place], [place] [address] (Wo rk) documented as of this encounter Visit Diagnoses Not on filedocumented in this encounter Care Teams Seismic Observer Relationship Specialty Start Date End Date Md Garcia MD PCP - General 08/16/10 01/17/12 [place], [place] [address] documented as of this encounter
--- OUTSIDE RECORDS SUMMARY | 2022-04-22 14:08 | XMS_ITS | Encounter Summary ---
:1965 Author [facility] Address [address] [place] [address] Care Team Providers Name Role Phone Md GEOVANNY Garcia Primary Care Provider Reason for Visit Reason Comments Other Encounter Details Date Type Department Care Team Description 04/29/2006 Telephone [facility] JinConcettaLesley Saul Other [address] [facility] [place] [address] Social History Tobacco Use Types Packs/Day Years Used Date Smoking Tobacco: Never Assessed Sex Assigned at Date Recorded Not on file documented as of this encounter Progress Notes Center, Message - 04/29/2006 9:21 AM CST Phone Note filed by Astech at 09/01/10 6926 Author: Astech Service: (none) Author Type: (none) Filed: 09/01/10 1218 Note Time: 04/29/06920 Status: Signed Log Sorter: Astech Prescription Refill Please provide enough refills to last until patient's next visit. Comment:- Pharmacy Seq #:-[phone] [facility] [place] or City:[facility] Clinician Name:-Abena Drug Name/Strength:-Prilosec 20mg Sig: Dose/Route/Freq:-1 tab po qd Quantity & Last Fill:-02-09-06 Created on 29Apr2006 9:21am by VICENTE PRETTY M On 29Apr2006 10:41am JOSEFINA GARDNER wrote: this medication has not been discussed in the past year at any visit. please advise on refills On 29Apr2006 11:25am PATRICE BANEGAS wrote: ok for 6 refill and then due for appt Acknowledged by PATRICE BANEGAS on 11:25am On 29Apr2006 11:41am LESLEY WAHL wrote: Rx faxed per . Acknowledged by LESLEY WAHL on 11:41am NIC SPECIALIST documented in this encounter Plan of Treatment Upcoming Encounters Date Type Specialty Care Team Description 06/15/2022 Appointment Orthopedics Vanna Ulloa MD [address] [facility] [place] [address] (Wo rk) documented as of this encounter Visit Diagnoses Not on filedocumented in this encounter Care Teams Orthotics Prosthetics Technician Relationship Specialty Start Date End Date Md Garcia MD PCP - General 08/16/10 [facility]/17/12 [facility] [address] documented as of this encounter
--- OUTSIDE RECORDS SUMMARY | 2022-04-22 14:08 | XMS_ITS | Encounter Summary ---
:1965 Author Organization [facility] Address [address] [place] [address] Care Team Providers Name Role Phone Md GEOVANNY Garcia Primary Care Provider Encounter Details Date Type Department Care Team Description 12/21/2005 PN Conversion Only OTHER CONVERSION [address] [place] [address] Social History Tobacco Use Types Packs/Day Years Used Date Smoking Tobacco: Never Assessed Sex Assigned at Date Recorded Not on file documented as of this encounter Plan of Treatment Upcoming Encounters Date Type Specialty Care Team Description 06/15/2022 Appointment Orthopedics Vanna Ulloa MD [address] [place], [place] [address] (Wo rk) documented as of this encounter Visit Diagnoses Not on filedocumented in this encounter Care Teams Health Care Assistant Relationship Specialty Start Date End Date Md Garcia MD PCP - General 08/16/10 01/17/12 [place], [place] [phone] documented as of this encounter
--- OUTSIDE RECORDS SUMMARY | 2022-04-22 14:08 | XMS_ITS | Encounter Summary ---
:1965 Author Organization [facility] Address [address] [place] [address] Care Team Providers Name Role Phone Md GEOVANNY Garcia Primary Care Provider Reason for Visit Reason Comments Other Encounter Details Date Type Department Care Team Description 12/14/2005 Telephone 1st [employer] Funding [facility] vanesa Rach Huston Other [address] [facility] [place] [address] Social History Tobacco Use Types Packs/Day Years Used Date Smoking Tobacco: Never Assessed Sex Assigned at Date Recorded Not on file documented as of this encounter Progress Notes Al Rodriguez - 12/14/2005 12:40 PM CDT Phone Note filed by Al Rodriguez RN at 09/01/1056 Author: Al Rodriguez RN Service: (none) Author Type: Registered Nurse Filed: 09/01/10655 Note Time: 12/14/05 1240 Status: Signed Beef Breaker: Al Rodriguez RN (Registered Nurse) MESSAGE TO CARE TEAM NAME OF CALLER:pt NAME OF CLINICIAN:Dr Corona MESSAGE:seen this morning for rectal bleeding. has colonoscopy set up for 12/20/05. says you told her to call if she had significant bleeding again. says when she got home she did have a lot of bleeding again, says 'it was as bad as it was last night' and she discussed that with you at appt. says she did feel tired after this recent BM with blood but deneis lightheadedness or dizziness. says you talked about getting this colonoscopy done sooner if continued having heavy bleeding. CALL BACK PHONE #:[phone] or try cell [phone] BEST TIME TO CALL BACK: Is it OK to leave detailed message on voicemail? yes Created on 14Dec2005 12:40pm by AL RODRIGUEZ On 14Dec2005 12:45pm FELISA CORONA wrote: please call reassure, if had BM after exam likely the hgb today would still be accurate, if bleeding cont with associated sx of light headed go to ER Acknowledged by FELISA CORONA on 12:45pm On 14Dec2005 2:09pm RACH MACHUCA wrote: lmom of above info, and to call w/any questions Acknowledged by RACH MACHUCA on 2:09pm TABLE OPERATOR documented in this encounter Plan of Treatment Upcoming Encounters Date Type Specialty Care Team Description 06/15/2022 Appointment Orthopedics Vanna Ulloa MD [address] [facility] [place] [id number] (Wo rk) documented as of this encounter Visit Diagnoses Not on filedocumented in this encounter Care Teams Local Hazmat Driver Relationship Specialty Start Date End Date Md Garcia MD PCP - General 08/16/10 [phone] documented as of this encounter
--- OUTSIDE RECORDS SUMMARY | 2022-04-22 14:08 | XMS_ITS | Encounter Summary ---
:1965 Author Organization [facility] Address [address] [place] [address] Care Team Providers Name Role Phone Md GEOVANNY Garcia Primary Care Provider Encounter Details Date Type Department Care Team Description 12/14/2005 Office Visit [facility] Felisa Corona MD [address] [facility] . [address] [place] [address] [place], [place] [address] (Wo rk) Social History Tobacco Use Types Packs/Day Years Used Date Smoking Tobacco: Never Assessed Sex Assigned at Date Recorded Not on file documented as of this encounter Last Filed Vital Signs Vital Sign Reading Time Taken Comments Blood Pressure 118/86 12/14/2005 9:38 AM CDT Pulse 84 12/14/2005 9:38 AM CDT Temperature - - Respiratory Rate - - Oxygen Saturation - - Inhaled Oxygen Concentration - - Weight 125.2 kg (275 lb 15.9 12/14/2005 9:38 AM C: 125. 2kg oz) CDT Height - - Body Mass Index 44.21 10/20/2005 2:53 PM CDT documented in this encounter Progress Notes Felisa Corona MD - 12/14/2005 12:01 AM CDT Progress Notes signed by Felisa Corona MD at 12/16/05 0744 Author: Felisa Corona MD Service: (none) Author Type: Physician Filed: 09/04/10 1323 Note Time: 12/14/052022 Status: Signed Director Women: Felisa Corona MD (Physician) NAME: MARCELO LUNA MR: [id number] ACCT: [id number] VISIT: [id number] DICTATING CLINICIAN: FELISA CORONA MD JOB: [id number] LOC: 1202 CLINIC PROGRESS NOTE DATE OF VISIT: 12/14/2005 SUBJECTIVE: Marcelo is a 40-year-old woman who comes in today with acute onset of rectal bleeding last evening. She states she had a minimal amount of cramping. She went to the bathroom. Noticed bright-red blood on the stool, paper, and in the bowl. She had 2 other episodes throughout the evening. She has had no change with her bowel habits over the last couple of months. She has had no recent travel. No recent antibiotics. There is no family history of colon cancer, inflammatory bowel disease, or ulcers. She has had 3 prior pregnancies. Has had some minimal difficulty with hemorrhoids, but no ongoing hemorrhoidal problems. The pain did not keep her awake last night. She has not had a bowel movement yet this morning. She states her health is otherwise good. OBJECTIVE: VS: BP: 118/86. P: 84, regular. Wt: 276. She is alert, cooperative, interactive, in no apparent distress. CARDIOVASCULAR: Regular S1, S2 with no murmurs, rubs, or gallops. RESPIRATIONS: Clear to auscultation. She has no evidence of CVA tenderness. ABDOMEN: Bowel sounds are present. Abdomen was soft, nontender, with no palpable masses. : She does have some minimal hemorrhoidal tissue in the perirectal area, but no evidence of acute hemorrhage. There are no recent fissures, and no evidence of a thrombosed hemorrhoid. Digital rectal exam did not show any palpable masses. Guaiac was done and was positive, but did not have any gross blood on the stool. Anoscope exam was done that showed no evidence of active bleeding, and no obvious internal hemorrhoids. CBC was done with hemoglobin normal at 15.1. White count was normal. Guaiac was positive. ASSESSMENT: Acute rectal bleeding with no evidence of occult distal bleeding, unclear source at this point. PLAN: At this point she was placed on Anusol-HC rectal suppository b.i.d. for the next 14 days. Continue with good hydration and increase the fiber in her diet. She was scheduled for a colonoscopy in the next 1 to 2 weeks. Risks and benefits of this procedure were discussed. She was given the GoLYTELY prep, and she will be contacted with test results. Will rule out diverticular disease, AVM, or possible polyps. WMB:[id number] C: 12/15/05 11:27 DOCUMENT: [id number] documented in this encounter Plan of Treatment Upcoming Encounters Date Type Specialty Care Team Description 06/15/2022 Appointment Orthopedics Vanna Ulloa MD [address] [place], [place] [address] (Wo rk) documented as of this encounter Visit Diagnoses Not on filedocumented in this encounter Care Teams Seafood Preparer Relationship Specialty Start Date End Date Md Garcia MD PCP - General 08/16/10 01/17/12 [place] [address] documented as of this encounter
--- OUTSIDE RECORDS SUMMARY | 2022-04-22 14:09 | XMS_ITS | Encounter Summary ---
:1965 Author Organization [facility] Address [address], [place] [address] Care Team Providers Name Role Phone Md GEOVANNY Garcia Primary Care Provider Reason for Visit Reason Comments Other Encounter Details Date Type Department Care Team Description 2005 Telephone [facility] [facility] Gloria Blanc, RN Other Medicine [address] [place], [place] [id number] Social History Tobacco Use Types Packs/Day Years Used Date Smoking Tobacco: Never Assessed Sex Assigned at Date Recorded Not on file documented as of this encounter Progress Notes Gloria Blanc RN - 2005 11:05 AM CDT Phone Note filed by Gloria Blanc RN at 09/01/10352 Author: Gloria Blanc RN Service: (none) Author Type: (none) Filed: 09/01/10352 Note Time: 09/23/051104 Status: Signed Montessori Lead Teacher: Cesar Sher Liz called. She is wondering what she should do re: going back to work...I read her your last note, I told her that it sounds like you want her to do an HAND NAILER before you make a determination as to whether or not she is able to go back to work...Let me know what you think.She is saying that you had left it up to her to decide...Gloria Campbell Created on 23Sep2005 11:05am by GLORIA BLANC On 23Sep2005 4:20pm JACKIE ALLEN wrote: I thought she was going to see a MD designated by her employer to make that determination. I think it is in her best interest and in the best interest of safety to do the MWT I offered. Acknowledged by JACKIE ALLEN on 4:20pm On 23Sep2005 4:33pm GLORIA BLANC wrote: Pt. was called back and a message was left on private voice mail re:'s thoughts and recommendations as mentioned above.Pt. encouraged to call this RN if any further questions. Acknowledged by GLORIA BLANC on 4:33pm LING SPECIALIST documented in this encounter Plan of Treatment Upcoming Encounters Date Type Specialty Care Team Description 06/15/2022 Appointment Orthopedics Vanna Ulloa MD [address] [facility] [place] [address] (Wo rk) documented as of this encounter Visit Diagnoses Not on filedocumented in this encounter Care Teams Setter Off Relationship Specialty Start Date End Date Md Garcia MD PCP - General 08/16/10 01/17/12 [place] [address] documented as of this encounter
--- OUTSIDE RECORDS SUMMARY | 2022-04-22 14:09 | XMS_ITS | Encounter Summary ---
:1965 Author Organization [facility] Address [address] [place] [address] Care Team Providers Name Role Phone Md GEOVANNY Garcia Primary Care Provider Encounter Details Date Type Department Care Team Description 10/20/2005 Office Visit [facility] [address] Kee Ahumada MD Obstetrics/Gynecolog y [address] [facility] [address] [facility] [address] [place] [address] [place] [address] [phone] (Wo rk) Social History Tobacco Use Types Packs/Day Years Used Date Smoking Tobacco: Never Assessed Sex Assigned at Date Recorded Not on file documented as of this encounter Last Filed Vital Signs Vital Sign Reading Time Taken Comments Blood Pressure 126/74 10/20/2005 2:53 PM CDT Pulse - - Temperature - - Respiratory Rate - - Oxygen Saturation - - Inhaled Oxygen Concentration - - Weight 126.3 kg (278 lb 6.4 oz) 10/20/2005 2:53 PM C: 1 26.3kg CDT Height 168.3 cm (5' 6.25) 10/20/2005 2:53 PM C: 168.3c m CDT Body Mass Index 44.6 10/20/2005 2:53 PM CDT documented in this encounter Progress Notes Kee Ahumada MD - 10/20/2005 12:01 AM CDT Progress Notes signed by Kee Ahumada MD at 10/25/05 2963 Author: Kee Ahumada MD Service: (none) Author Type: Physician Filed: 09/04/10 1220 Note Time: 10/20/05 0001 Status: Signed Cardroom Attendant: Kee Ahumada MD (Physician) NAME: MARCELO LUNA MR: [id number] ACCT: [id number] VISIT: [id number] DICTATING CLINICIAN: KEE AHUMADA MD JOB: [id number] CLINIC PROGRESS NOTE DATE OF VISIT: 10/20/2005 SUBJECTIVE: Patient is a 40-year-old, para 3-0-2-3, LMP 10/11/05, status post tubal ligation, here today for an annual exam. Her main concern today is PMDD. She feels that she has mood swings. Used to be just a day before her menses, but now is a week to week and a half prior to her menses. She finds this quite distressing. She recently saw Dr. Tony and was started on Celexa for depression. I explained to her that SSRIs are recommended as a useful treatment for PMDD and recommended giving the Celexa some time to see if that provides relief of her symptoms. She, otherwise, is in good health. Again, she is being treated for depression. She has had an ankle fracture, tubal ligation. Otherwise, hospitalized only for childbirth. COMPLETE REVIEW OF SYSTEMS Unremarkable, with the exception of occasional headaches. MEDICATIONS: Celexa, Prilosec, a multivitamin, and Nasonex. ADR/ALLERGIES: SHE HAS NO ALLERGIES. 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 She smokes a pack of cigarettes per day, uses alcohol and caffeine in moderation. Does not do formal exercise very regularly. She does do a breast self-exam and wears a seat-belt. FAMILY HISTORY: Significant for diabetes and cancer in her mother. Diabetes, heart disease, and cancer in grandparents. OBJECTIVE: VS: BP: 126/74. Ht: 66-1/4 in. Wt: 278.4 lb. An exam was performed with a nurse present in the room. CHEST: Clear to auscultation. HEART: Regular rate and rhythm. Normal S1 and S2. No murmurs. BREASTS: Without masses or discharge bilaterally. There are some fibrocystic changes. The axillary are without masses. ABDOMEN: Obese, soft, nontender, without masses. EXTREMITIES: Without cords or edema. External genitalia, urethra and vagina are without lesions. Cervix appears parous. Pap smear is obtained. On bimanual exam, uterus is normal size and anterior. No adnexal masses are noted. The exam is limited by the patient's obesity. ASSESSMENT: PLAN: We will notify patient of Pap result when available. She does have a history of cervical dysplasia. If this Pap smear is normal, she should continue having annual Paps. Again, I encouraged her to use the Celexa for her PMDD, and if she is not noticing complete improvement with her PMDD or other symptoms of depression, then she may wish to contact myself or Dr. Tony to, perhaps, increase the dose on the Celexa. Otherwise, follow up in 1 year for an annual exam. DAD:[id number] C: 10/21/05 17:22 DOCUMENT: [id number] documented in this encounter Plan of Treatment Upcoming Encounters Date Type Specialty Care Team Description 06/15/2022 Appointment Orthopedics Vanna Ulloa MD [address] [place] [address] (Wo rk) documented as of this encounter Visit Diagnoses Not on filedocumented in this encounter Care Teams Global Creative Chairman Relationship Specialty Start Date End Date Md Garcia MD PCP - General 08/16/10 01/17/12 [place] [address] documented as of this encounter
--- OUTSIDE RECORDS SUMMARY | 2022-04-22 14:09 | XMS_ITS | Encounter Summary ---
:1965 Author Organization [facility] Address [address], [place] [address] Care Team Providers Name Role Phone Md GEOVANNY Garcia Primary Care Provider Encounter Details Date Type Department Care Team Description 10/20/2005 PN Conversion Only PALA CONVERSION Manan Ahumada, [address] [facility] [address] [address] [facility] [address] [place], [place] [address] (Wo rk) Social History Tobacco Use Types Packs/Day Years Used Date Smoking Tobacco: Never Assessed Sex Assigned at Date Recorded Not on file documented as of this encounter Plan of Treatment Upcoming Encounters Date Type Specialty Care Team Description 06/15/2022 Appointment Orthopedics Vanna Ulloa MD [address] [place], [place] [address] (Wo rk) documented as of this encounter Procedures Procedure Name Priority Date/Time Associated Comments Diagnosis ANATOMICAL PATH Routine 10/20/2005 10:27 AM Resul ts for this LIQUID BASED CDT procedure are i n the results section. documented in this encounter Results Pap Smear (10/20/2005 10:27 AM CDT) [facility] gist Method Time Signature PAP Smear SEE TEXT No normal HP CONVERSION Liquid Based range Comment: Patient: MARCELO LUNA ? CERVICAL CYTOLOGY REPORT Pathology # ??[id number] ?Date Obtained: ? Date Received: CYTOLOGIC IMPRESSION: Negative for intraepithelial lesion or m alignancy. Verified 10/28/05 by: ? (electronic signature) ? KETURAH TIONAL DATA LMP: CLINICAL HIST ? LIQUID BASED PAP CERVICAL SPECIMEN ADEQUACY: ?? Satisfactory. ENDOCERVICAL CELLS: ??Absent. Specimen (Source) Anatomical Collection Method Collection Time Re ceived Time Location / / Volume Laterality 10/20/2005 10:27 AM CDT Manan Ahumada MD LAB_1 Performing Organization Address City/State/ZIP Code Phon e Number HP CONVERSION documented in this encounter Visit Diagnoses Not on filedocumented in this encounter Care Teams Cost Report Clerk Relationship Specialty Start Date End Date Md Jose, PCP - General 08/16/10 01/17/12 [place] [address] documented as of this encounter
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
--- OUTSIDE RECORDS SUMMARY | 2022-04-22 14:09 | XMS_ITS | Encounter Summary ---
:1965 Author Organization [facility] Address [address] [place] [address] Care Team Providers Name Role Phone Md GEOVANNY Garcia Primary Care Provider Encounter Details Date Type Department Care Team Description 10/15/2005 Office Visit [facility] Patrice Tony MD [address] [facility] . [address] [place] [address] [place] [address] [phone] (Wo rk) Social History Tobacco Use Types Packs/Day Years Used Date Smoking Tobacco: Never Assessed Sex Assigned at Date Recorded Not on file documented as of this encounter Last Filed Vital Signs Vital Sign Reading Time Taken Comments Blood Pressure 122/78 10/15/2005 3:19 PM CDT Pulse 76 10/15/2005 3:19 PM CDT Temperature - - Respiratory Rate - - Oxygen Saturation - - Inhaled Oxygen Concentration - - Weight 129.7 kg (285 lb 15.7 10/15/2005 3:19 PM C: 129. 7kg oz) CDT Height - - Body Mass Index - - documented in this encounter Progress Notes Patrice Tony MD - 10/15/2005 12:01 AM CDT Progress Notes signed by Patrice Tony MD at 10/25/05 2005 Author: Patrice Tony MD Service: (none) Author Type: Physician Filed: 09/04/10 1214 Note Time: 10/15/05 0001 Status: Signed Director Of Architecture: Patrice Tony MD (Physician) NAME: MARCELO LUNA MR: [id number] ACCT: [id number] VISIT: [id number] DICTATING CLINICIAN: PATRICE TONY MD JOB: [id number] CLINIC PROGRESS NOTE DATE OF VISIT: 10/15/2005 SUBJECTIVE: : 1965. Awdqen-ftbc-eoof-old female that comes in concerned about depression. She has had symptoms probably for the last year, but they have gotten worse the last several months. On more than half a day, she has decreased interest in doing things. She feels depressed. She has difficulty falling asleep. She has decreased energy and most days she has problems for overeating, feels frustrated, difficulty concentrating. Occasionally she will feel like it is better off that she was not here but would not act through this. Overall, it makes it very difficult to do things. On patient health questionnaire - 9, she scores 18. PAST HISTORY: Reviewed and updated in [facility] health profile. MEDICATIONS: Updated in [facility]. ADR/ALLERGIES: UPDATED IN [facility]. SOCIAL HISTORY: The patient is , sometimes gets frustrated with her 17-year-old daughter, feels overwhelmed with the younger daughter, and then gets in arguments with . Sometimes overall these things make it feel stressful. There is no family history of depression. HABITS: The patient smokes one pack per day. Rare alcohol use. OBJECTIVE: VS: BP: 122/78. P: 76. Wt: 286 lb. Depressed female who responds appropriately to questioning. ASSESSMENT: Major depression, single episode, moderate. PLAN: Will start her on Citalopram 20 mg daily with plan to recheck in a month. Discussed use and side effects. Visit total time 25 minutes, counseling time 15 minutes discussing medication, side effects, followup plans. [id number] C: 10/18/05 07:01 DOCUMENT: [id number] documented in this encounter Plan of Treatment Upcoming Encounters Date Type Specialty Care Team Description 06/15/2022 Appointment Orthopedics Vanna Ulloa MD [address] [facility] [place] [address] (Wo rk) documented as of this encounter Visit Diagnoses Not on filedocumented in this encounter Care Teams Microbiology Quality Control Technician Relationship Specialty Start Date End Date Md Garcia MD PCP - General 08/16/10 01/17/12 [place] [address] documented as of this encounter
--- OUTSIDE RECORDS SUMMARY | 2022-04-22 14:09 | XMS_ITS | Encounter Summary ---
:1965 Author Organization [facility] Address [address] [address] Care Team Providers Name Role Phone Md GEOVANNY Garcia Primary Care Provider Reason for Visit Reason Comments Other Encounter Details Date Type Department Care Team Description 10/05/2005 Telephone Special[facility] 3931 Pulmonary Gloria Blanc, RN Other Medicine [address] [place], [place] 6[address] Social History Tobacco Use Types Packs/Day Years Used Date Smoking Tobacco: Never Assessed Sex Assigned at Date Recorded Not on file documented as of this encounter Progress Notes Gloria Blanc RN - 10/05/2005 4:24 PM CDT Phone Note filed by Gloria Blanc RN at 09/01/10419 Author: Gloria Blanc RN Service: (none) Author Type: (none) Filed: 09/01/10419 Note Time: 10/05/054 Status: Signed Restaurant Cook: Cesar Sher Liz called. 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 Acknowledged by JACKIE ALLEN on 3:48pm On 06Oct2005 5:14pm GLORIA BLANC wrote: Pt. 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 Acknowledged by GLORIA BLANC on 5:14pm CARE PROFESSIONAL documented in this encounter Plan of Treatment Upcoming Encounters Date Type Specialty Care Team Description 06/15/2022 Appointment Orthopedics Vanna Ulloa MD [address] [facility] [place] [phone] (Wo rk) documented as of this encounter Visit Diagnoses Not on filedocumented in this encounter Care Teams Home Health Travel Ot Relationship Specialty Start Date End Date Md Garcia MD PCP - General 08/16[facility]10 [facility] [address] documented as of this encounter
--- OUTSIDE RECORDS SUMMARY | 2022-04-22 14:09 | XMS_ITS | Encounter Summary ---
:1965 Author Organization [facility] Address [address] [place] [address] Care Team Providers Name Role Phone Md GEOVANNY Garcia Primary Care Provider Encounter Details Date Type Department Care Team Description 10/14/2005 PN Conversion Only [facility] CONVERSION [address] [place] [address] Social History Tobacco Use Types Packs/Day Years Used Date Smoking Tobacco: Never Assessed Sex Assigned at Date Recorded Not on file documented as of this encounter Plan of Treatment Upcoming Encounters Date Type Specialty Care Team Description 06/15/2022 Appointment Orthopedics Vanna Ulloa MD [address] [place], [place] [address] (Wo rk) documented as of this encounter Visit Diagnoses Not on filedocumented in this encounter Care Teams Hat Cone Inspector Relationship Specialty Start Date End Date Md Garcia MD PCP - General 08/16/10 01/17/12 [place], [place] [id number] documented as of this encounter
--- OUTSIDE RECORDS SUMMARY | 2022-04-22 14:10 | XMS_ITS | Encounter Summary ---
:1965 Author [facility] Address [address] [place] [address] Care Team Providers Name Role Phone Unassigned, Provider Primary Care Provider Unavailable Encounter Details Date Type Department Care Team Description 10/12/2004 Hospital Encounter [facility] CONVERSION Jorge Denton MD [address] [facility] [address] [place] [address] (Wo rk) Social History Tobacco Use Types Packs/Day Years Used Date Smoking Tobacco: Never Assessed Sex Assigned at Date Recorded Not on file documented as of this encounter Medications at Time of Discharge Medication Sig Dispensed Refills Start Date End Date mometasone (AKA NASONEX) 2 sprays by Each 17 0 08/2006/29/2010 50 MCG/ACT nasal Nostril route daily solution (every 24 hours). Multiple Take 1 tablet by 100 13 02/11/2004 04/25/20 09 Vitamins-Minerals mouth daily (every 24 (MULTIVITAMIN OR) hours). ranitidine (ZANTAC) 150 Take 1 tablet by 180 3 200307/19/2005 MG tablet mouth 2 times daily. UNKNOWN MEDICATION Indications: PN: 0 06/30/2004 08/18/2010 UNKNOWN MEDICATION Indications: PN: 0 11/20/2003 08/18/2010 documented as of this encounter Plan of Treatment Upcoming Encounters Date Type Specialty Care Team Description 06/15/2022 Appointment Orthopedics Vanna Ulloa MD [address] [place] [address] (Wo rk) documented as of this encounter Visit Diagnoses Not on filedocumented in this encounter Care Teams Study Abroad Advisor Relationship Specialty Start Date End Date Unassigned, Provider PCP - General 02/17/00 01/08/[address] [place] [address] documented as of this encounter
--- OUTSIDE RECORDS SUMMARY | 2022-04-22 14:10 | XMS_ITS | Encounter Summary ---
:1965 Author Organization [facility] Address [address] [place] [address] Care Team Providers Name Role Phone Md GEOVANNY Garcia Primary Care Provider Encounter Details Date Type Department Care Team Description 06/30/2004 Office Visit [facility] 1515 Kee Ahumada MD Obstetrics/Gynecolog y 1515 [facility] 1515 [facility] . [address] [place] [address] [place], [place] [address] (Wo rk) Social History Tobacco Use Types Packs/Day Years Used Date Smoking Tobacco: Never Assessed Sex Assigned at Date Recorded Not on file documented as of this encounter Progress Notes Kee Ahumada MD - 06/30/2004 12:01 AM CST Progress Notes signed by Kee Ahumada MD at 06/30/04 1419 Author: Kee Ahumada MD Service: (none) Author Type: Physician Filed: 09/04/10 0259 Note Time: 06/30/04 0001 Status: Signed Supervisor Cook Room: Kee Ahumada MD (Physician) NAME: MARCELO LUNA MR: [id number] ACCT: [id number] VISIT: [id number] DICTATING CLINICIAN: KEE AHUMADA MD JOB: [id number] CLINIC PROGRESS NOTE DATE OF VISIT: 06/30/2004 SUBJECTIVE: The patient is a 38-year-old para 3-0-2-3, LMP 06/14/04, is here today for a repeat Pap smear. 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 She had a followup Pap in 11/2003 which was normal. She had no other further surveillance. OBJECTIVE: VS: BP: 120/64. Wt: 274.4 lb. An exam was performed with the nurse present in the room. External genitalia, urethra and vagina were without lesions. Cervix appears parous. Pap smear was obtained. 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 PLAN: Pap done; we will notify patient of results when available. If normal, would recommend another followup Pap in six months; if that is normal, she can return to annual. [id number] C: 06/30/04 13:55 DOCUMENT: [id number] TECHNICIAN documented in this encounter Plan of Treatment Upcoming Encounters Date Type Specialty Care Team Description 06/15/2022 Appointment Orthopedics Vanna Ulloa MD [address] [facility] [address] [place], [place] [address] (Wo rk) documented as of this encounter Visit Diagnoses Not on filedocumented in this encounter Care Teams Long Chain Quiller Tender Relationship Specialty Start Date End Date Md Garcia MD PCP - General 08/16/10 01/17/12 [place], [place] [address] documented as of this encounter
--- OUTSIDE RECORDS SUMMARY | 2022-04-22 14:10 | XMS_ITS | Encounter Summary ---
:1965 Author Organization [facility] Address [address] [place] [address] Care Team Providers Name Role Phone Md GEOVANNY Garcia Primary Care Provider Encounter Details Date Type Department Care Team Description 08/03/2005 PN Conversion Only [facility] CONVERSION Mian Tony MD [address] [facility] [address] [place] [address] [place], [place] [address] (Wo rk) Social History Tobacco Use Types Packs/Day Years Used Date Smoking Tobacco: Never Assessed Sex Assigned at Date Recorded Not on file documented as of this encounter Plan of Treatment Upcoming Encounters Date Type Specialty Care Team Description 06/15/2022 Appointment Orthopedics Vanna Ulloa MD [address] [place], [place] [address] (Wo rk) documented as of this encounter Procedures Procedure Name Priority Date/Time Associated Diagnosis Comme nts IRON (NO IBC OR Routine 08/03/2005 5:00 PM Result s for this SAT) TEXTILE PIN WORKER procedure are i n the results section. GLUCOSE Routine 08/03/2005 3:06 PM Results f or this TEXTILE PIN WORKER procedure are i n the results section. COMPLETE BLOOD Routine 08/03/2005 3:06 PM Results for this COUNT-W/DIFF TEXTILE PIN WORKER procedure are i n the results section. documented in this encounter Results Iron (no IBC or Sat) (08/03/2005 5:00 PM TEXTILE PIN WORKER) athologist Signature Iron, Serum 76 50 - 165 HP CONVERSION ug/dL Specimen (Source) Anatomical Collection Method Collection Time Re ceived Time Location / / Volume Laterality 08/03/2005 5:00 PM TEXTILE PIN WORKER Mian Tony MD LAB_1 Performing Organization Address City/[facility]/ZIP Code Phon e Number HP CONVERSION Complete Blood Count-W/Diff (08/03/2005 3:06 PM TEXTILE PIN WORKER) [facility] Method Time Signature White Blood Cell 10.1 3.8 - 11.0 HP CONVERSIO N Count K/cmm Red Blood Cell 4.80 3.70 - HP CONVERSION Count 5.20 m/cmm Hemoglobin 14.9 11.8 - HP CONVERSION 15.5 gm/dL Hematocrit 44.5 35.0 - HP CONVERSION 46.0 % Mean Corpuscular 92.6 80.0 - HP CONVERSION Volume 100.0 fl Mean Corpuscular 31.1 27.0 - HP CONVERSION Hemoglobin 34.0 pg Mean Corpuscular 33.6 32.0 - HP CONVERSION Hemoglobin Conc 36.5 gm/dL [place] RDW 12.2 11.0 - HP CONVERSION 15.0 % Platelet Count 293 140 - 450 HP CONVERSION k/cmm Differential Auto-Dif No normal HP CONVERSION Verify range Neutrophils 6.1 2.0 - 7.5 HP CONVERSION Absolute Count K/cmm Neutrophil 60.8 50.0 - HP CONVERSION 75.0 % Lymphocyte % 27.1 20.0 - HP CONVERSION 40.0 % Monocyte 7.2 5.0 - 14.0 HP CONVERSION % Eosinophil 3.7 0.0 - 6.0 HP CONVERSION % Basophil % 1.2 0.0 - 2.0 HP CONVERSION % Specimen (Source) Anatomical Collection Method Collection Time Re ceived Time Location / / Volume Laterality 08/03/2005 3:06 PM TEXTILE PIN WORKER Mian Tony MD LAB_1 Performing Organization Address City/State/ZIP Code Phon e Number HP CONVERSION Glucose (08/03/2005 3:06 PM TEXTILE PIN WORKER) athologist Signature Lab Glucose 92 60 - 100 HP CONVERSION mg/dL Specimen (Source) Anatomical Collection Method Collection Time Re ceived Time Location / / Volume Laterality 08/03/2005 3:06 PM TEXTILE PIN WORKER Mian Tony MD LAB_1 Performing Organization Address City/State/ZIP Code Phon e Number HP CONVERSION documented in this encounter Visit Diagnoses Not on filedocumented in this encounter Care Teams Therapeutic Assistant Relationship Specialty Start Date End Date Md Jose, MD PCP - General 08/16/10 01/17/12 [place] [address] documented as of this encounter
--- OUTSIDE RECORDS SUMMARY | 2022-04-22 14:10 | XMS_ITS | Encounter Summary ---
:1965 [facility] Address [address] [place] [address] Care Team Providers Name Role Phone Md GEOVANNY Garcia Primary Care Provider Encounter Details Date Type Department Care Team Description 03/26/2005 Nursing Visit [facility] Tanya Corona MD [address] [facility] . [address] [place] [address] [place] [phone] [place], [place] [address] (Wo rk) Social History Tobacco Use Types Packs/Day Years Used Date Smoking Tobacco: Never Assessed Sex Assigned at Date Recorded Not on file documented as of this encounter Plan of Treatment Upcoming Encounters Date Type Specialty Care Team Description 06/15/2022 Appointment Orthopedics Vanna Ulloa MD [address] [place] [address] (Wo rk) documented as of this encounter Visit Diagnoses Not on filedocumented in this encounter Care Teams Bread Panner Relationship Specialty Start Date End Date Md Garcia MD PCP - General 08/16/10 01/17/12 [place], [place] [address] documented as of this encounter
--- OUTSIDE RECORDS SUMMARY | 2022-04-22 14:10 | XMS_ITS | Encounter Summary ---
:1965 Author Organization [facility] Address [address] [place] [address] Care Team Providers Name Role Phone Md GEOVANNY Garcia Primary Care Provider Encounter Details Date Type Department Care Team Description 10/12/2004 PN Conversion Only CONV PULMONARY Jorge Denton MD [address] [place] [phone] (Wo rk) Social History Tobacco Use Types Packs/Day Years Used Date Smoking Tobacco: Never Assessed Sex Assigned at Date Recorded Not on file documented as of this encounter Plan of Treatment Upcoming Encounters Date Type Specialty Care Team Description 06/15/2022 Appointment Orthopedics Vanna Ulloa MD [address] [place], [place] [address] (Wo rk) documented as of this encounter Visit Diagnoses Not on filedocumented in this encounter Care Teams Professional Volleyball Player Relationship Specialty Start Date End Date Md Garcia MD PCP - General 08/16/10 01/17/12 [place], [place] [id number] documented as of this encounter
--- OUTSIDE RECORDS SUMMARY | 2022-04-22 14:10 | XMS_ITS | Encounter Summary ---
:1965 Author Organization [facility] Address [address] [place] [address] Care Team Providers Name Role Phone Md GEOVANNY Garcia Primary Care Provider Reason for Visit Reason Comments Other Encounter Details Date Type Department Care Team Description 07/19/2005 Telephone [facility], Message Other [address] [facility] [place] [place] [address] Social History Tobacco Use Types Packs/Day Years Used Date Smoking Tobacco: Never Assessed Sex Assigned at Date Recorded Not on file documented as of this encounter [facility], Message - 07/19/2005 9:38 AM CST Phone Note filed by [employer]et[employer] at 09/01/10122 Author: [employer] Competence Service: (none) Author Type: (none) Filed: 09/01/10122 Note Time: 07/19/05937 Status: Signed Blood Typer: [facility] MESSAGE TO CARE TEAM NAME OF CALLER: Liz NAME OF CLINICIAN: Chavo MESSAGE: Pt has been prescribed Zantac for acid reflux and it has not been working for her lately. She was told that she could call in and get an rx for Prilosec if the Zantac did not work. Please call to discuss. PHARMACY NAME: [facility] PHONE #: [phone] CALL BACK PHONE #: [phone] BEST TIME TO CALL BACK: anytime Is it OK to leave detailed message on voicemail? yes Created on 19Jul2005 9:38am by MATTHEW ESCOBEDO On 19Jul2005 6:29pm LILIAN CASTRO wrote: sent - notify Acknowledged by LILIAN CASTRO on 6:29pm On 20Jul2005 8:42am FRANKIE LEMA wrote: pt notified of the above! LER UPPER documented in this encounter Plan of Treatment Upcoming Encounters Date Type Specialty Care Team Description 06/15/2022 Appointment Orthopedics Vanna Ulloa MD [address] [facility] [address] [place] [address] (Wo rk) documented as of this encounter Visit Diagnoses Not on filedocumented in this encounter Care Teams Supervisor Alteration Workroom Relationship Specialty Start Date End Date Md Garcia MD PCP - General 08/16/10 01/17/12 [place] [address] documented as of this encounter
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
--- OUTSIDE RECORDS SUMMARY | 2022-04-22 14:10 | XMS_ITS | Encounter Summary ---
:1965 Author Organization [facility] Address [address] [place] [address] Care Team Providers Name Role Phone Md GEOVANNY Garcia Primary Care Provider Encounter Details Date Type Department Care Team Description 02/11/2004 PN Conversion Only YOMBA SHOSHONE CONVERSION Mian Tony MD [address] [facility] [address] [place] [address] [place], [place] [address] (Wo rk) Social History Tobacco Use Types Packs/Day Years Used Date Smoking Tobacco: Never Assessed Sex Assigned at Date Recorded Not on file documented as of this encounter Plan of Treatment Upcoming Encounters Date Type Specialty Care Team Description 06/15/2022 Appointment Orthopedics Vanna Ulloa MD [address] [place], [place] [address] (Wo rk) documented as of this encounter Procedures Procedure Name Priority Date/Time Associated Comments Diagnosis GLUCOSE Routine 02/11/2004 11:59 Results for this AM CDT procedure are i n the results section. THYROID STIMULATING Routine 02/11/2004 11:59 Resu lts for this HORMONE AM CDT procedure are i n the results section. LIPID PANEL AND Routine 02/11/2004 11:59 Results for this DIRECT LDL(IF NEEDED) AM CDT proced ure are in the results section. COMPLETE BLOOD Routine 02/11/2004 11:59 Results f or this COUNT-W/DIFF AM CDT procedure are i n the results section. documented in this encounter Results Complete Blood Count-W/Diff (02/11/2004 11:59 AM CDT) [facility] Vhoto Method Time Signature White Blood Cell 7.7 3.8 - 11.0 HP CONVERSIO N Count K/cmm Red Blood Cell 4.62 3.70 - HP CONVERSION Count 5.20 m/cmm Hemoglobin 14.5 11.8 - HP CONVERSION 15.5 gm/dL Hematocrit 42.5 35.0 - HP CONVERSION 46.0 % Mean Corpuscular 92.0 80.0 - HP CONVERSION Volume 100.0 fl Mean Corpuscular 31.4 27.0 - HP CONVERSION Hemoglobin 34.0 pg Mean Corpuscular 34.1 32.0 - HP CONVERSION Hemoglobin Conc 36.5 gm/dL Lillian RDW 12.7 11.0 - HP CONVERSION 15.0 % Platelet Count 270 140 - 450 HP CONVERSION k/cmm Differential Auto-Dif No normal HP CONVERSION Verify range Neutrophils 4.8 2.0 - 7.5 HP CONVERSION Absolute Count K/cmm Neutrophil 62.4 50.0 - HP CONVERSION 75.0 % Lymphocyte % 26.1 20.0 - HP CONVERSION 40.0 % Monocyte 6.7 5.0 - 14.0 HP CONVERSION % Eosinophil 4.2 0.0 - 6.0 HP CONVERSION % Basophil % 0.6 0.0 - 2.0 HP CONVERSION % Specimen (Source) Anatomical Collection Method Collection Time Re ceived Time Location / / Volume Laterality 02/11/2004 11:59 AM CDT Mian Tony MD LAB_1 Performing Organization Address City/State/ZIP Code Phon e Number HP CONVERSION (ABNORMAL) Lipid Panel and Direct LDL(If Needed) (02/11/2004 11:59 AM CDT) [facility] Vhoto Method Time Signature Cholesterol/HDL 6.5 No normal HP CONVERSION Ratio Screen range Cholesterol 163 125 - 199 HP CONVERSION mg/dL HDL Cholesterol 25 (L) 40 - 60 HP CONVERSION mg/dL Triglycerides 383 (H) 0 - 199 HP CONVERSION mg/dL LDL Calculated 61 (L) 66 - 129 HP CONVERSION mg/dL Comment: Specimen (Source) Anatomical Collection Method Collection Time Re ceived Time Location / / Volume Laterality 02/11/2004 11:59 AM CDT Mian Tony MD LAB_1 Performing Organization Address City/[facility]/ZIP Code Phon e Number HP CONVERSION Thyroid Stimulating Hormone (02/11/2004 11:59 AM CDT) athologist Signature Thyroid 1.79 0.20 - HP CONVERSION Stimulating 5.50 Hormone uIU/mL Specimen (Source) Anatomical Collection Method Collection Time Re ceived Time Location / / Volume Laterality 02/11/2004 11:59 AM CDT Mian Tony MD LAB_1 Performing Organization Address City/[facility]/ZIP Code Phon e Number HP CONVERSION Glucose (02/11/2004 11:59 AM CDT) athologist Signature Lab Glucose 100 60 - 100 HP CONVERSION mg/dL Specimen (Source) Anatomical Collection Method Collection Time Re ceived Time Location / / Volume Laterality 02/11/2004 11:59 AM CDT Mian Tony MD LAB_1 Performing Organization Address City/[facility] Phon e Number HP CONVERSION documented in this encounter Visit Diagnoses Not on filedocumented in this encounter Care Teams Geological Technical Officer Relationship Specialty Start Date End Date Md Garcia MD PCP - General 08/16/10 01/17/12 [place] [address] documented as of this encounter
--- OUTSIDE RECORDS SUMMARY | 2022-04-22 14:10 | XMS_ITS | Encounter Summary ---
:1965 Author Organization [facility] Address [address] [place] [address] Care Team Providers Name Role Phone Md GEOVANNY Garcia Primary Care Provider Encounter Details Date Type Department Care Team Description 03/03/2005 [facility]e Florez [address] [facility] [address] [facility] [address] [phone] [place], [place] [address] Social History Tobacco Use Types Packs/Day Years Used Date Smoking Tobacco: Never Assessed Sex Assigned at Date Recorded Not on file documented as of this encounter Last Filed Vital Signs Vital Sign Reading Time Taken Comments Blood Pressure 118/78 03/03/2005 9:17 AM CDT Pulse 93 03/03/2005 9:17 AM CDT Temperature - - Respiratory Rate - - Oxygen Saturation 97% 03/03/2005 9:17 AM CDT Inhaled Oxygen Concentration - - Weight 121.1 kg (266 lb 15.6 03/03/2005 9:17 AM C: 121. 1kg oz) CDT Height - - Body Mass Index - - documented in this encounter Progress Notes Kylee Florez MD - 03/03/2005 12:01 AM CDT Progress Notes signed by Kylee Henao MD at 03/08/05 8459 Author: Kylee Henao MD Service: (none) Author Type: Physician Filed: 09/04/10 0737 Note Time: 03/03/05 0001 Status: Signed Egg Tester: Kylee Henao MD (Physician) NAME: MARCELO LUNA MR: [id number] ACCT: [id number] VISIT: [id number] DICTATING CLINICIAN: KYLEE HENAO MD JOB: [id number] CLINIC PROGRESS NOTE DATE OF VISIT: 03/03/2005 SUBJECTIVE: 1965. Marcelo comes in today for two reasons. 1. Follow up of a right ankle fracture. She has been wearing her CAM walker, but feels that this one is a bit tight and is requesting a larger size. She is not placing pressure on this foot yet. Is walking with crutches. Her pain is well controlled although she has a little bit more discomfort at nighttime. 2. Cough for three days. Has been using bovo-jfm-gslnvnu cough and cold medicine with good relief. No fevers. No chills. No production to her cough. OBJECTIVE: GENERAL: Pleasant female in no apparent distress. HEENT: TMs normal bilaterally. Oral mucosa is moist. Posterior pharynx is mildly erythematous with no exudate. NECK: Supple with no lymphadenopathy. HEART: Regular S1, S2. No murmur, rub, or gallop. LUNGS: Clear to auscultation bilaterally. Right ankle: There is minimal bruising just below the lateral and medial malleoli. No swelling. No edema. She has good capillary refill of the toes with good toe range of motion. X-ray shows no change in the fracture. ASSESSMENT: A 39-year-old female with right ankle fracture, upper respiratory infection. PLAN: 1. Discussed symptomatic cares for her cough. She will return to clinic if she has worsening or no resolution of her symptoms. 2. Discussed gradual return to walking with her CAM walker. Discussed that she should be wearing her CAM walker for a total of six weeks. Note for work was given. She will follow up with myself in four weeks, sooner if she has further questions or concerns. JKW:[id number] C: 03/04/05 11:06 DOCUMENT: [id number] documented in this encounter Plan of Treatment Upcoming Encounters Date Type Specialty Care Team Description 06/15/2022 Appointment Orthopedics Vanna Ulloa MD [address] [facility] [place] [address] (Wo rk) documented as of this encounter Procedures Procedure Name Priority Date/Time Associated Diagnosis Comme nts XR ANKLE RT 3 VIEWS Routine 03/03/2005 3:51 PM Re sults for this CDT procedure are i n the results section. documented in this encounter Results XR Ankle Rt 3 Views (03/03/2005 3:51 PM CDT) Anatomical Region Laterality Modality Lower Extremity, Ankle, Foot & Ankle Oth er Specimen (Source) Anatomical Location Collection Method / Collectio n Time Received Time / Laterality Volume Narrative 03/03/2005 3:51 PM CDT Comparison made to 02/23/05. ??Once again there is an essentially nondisplaced fracture of the posterior a spect of the lateral malleolus best seen on the lateral view. ??Alignment is near anatomic and remainder of bony structures are int act. ??Ankle mortise is well maintained. CONCLUSIONS: ??No change in alignment of lateral malleolar fracture compared to 02/23/05. [place] [id number] Dictating BRIGID SMART RADIOLOGIST Procedure Note Brigid Currie - 07/19/2016Formattin g of this note might be different from the original. Comparison made to 02/23/05. Once again there is an essentially nondisplaced fracture of the posterior a spect of the lateral malleolus best seen on the lateral view. Alignment is near anatomic and remainder of bony structures are int act. Ankle mortise is well maintained. CONCLUSIONS: No change in alignment of l ateral malleolar fracture compared to 02/23/05. [place] [id number] Dictating BRIGID SMART RADIOLOGIST Kylee Henao MD RAD GD documented in this encounter Visit Diagnoses Not on filedocumented in this encounter Care Teams Machine Cell Tuber Relationship Specialty Start Date End Date Md Garcia MD PCP - General 08/16/10 01/17/12 [place] [address] documented as of this encounter
--- OUTSIDE RECORDS SUMMARY | 2022-04-22 14:10 | XMS_ITS | Encounter Summary ---
:1965 Author Organization [facility] Address [address] [place] [address] Care Team Providers Name Role Phone Md GEOVANNY Garcia Primary Care Provider Encounter Details Date Type Department Care Team Description 02/21/2004 Office Visit [facility] Herrera Hinson, [address] [facility] [place], [place] [address] [address] [facility] [phone] [place] [phone] (Wo rk) Social History Tobacco Use Types Packs/Day Years Used Date Smoking Tobacco: Never Assessed Sex Assigned at Date Recorded Not on file documented as of this encounter Plan of Treatment Upcoming Encounters Date Type Specialty Care Team Description 06/15/2022 Appointment Orthopedics Vanna Ulloa MD [address] [place], [place] [address] (Wo rk) documented as of this encounter Visit Diagnoses Not on filedocumented in this encounter Care Teams Hydroelectric Station Operator Relationship Specialty Start Date End Date Md Garcia MD PCP - General 08/16/10 01/17/12 [place], [place] [address] documented as of this encounter
--- OUTSIDE RECORDS SUMMARY | 2022-04-22 14:10 | XMS_ITS | Encounter Summary ---
:1965 Author Organization [facility] Address [address] [place] [address] Care Team Providers Name Role Phone Md GEOVANNY Garcia Primary Care Provider Encounter Details Date Type Department Care Team Description 02/19/2004 Office Visit Glory Barrera gy Harry Montaño G, OD [address] [facility] [address] [facility] [place] [address] [place], [place] [address] (Wo rk) Social History Tobacco Use Types Packs/Day Years Used Date Smoking Tobacco: Never Assessed Sex Assigned at Date Recorded Not on file documented as of this encounter Plan of Treatment Upcoming Encounters Date Type Specialty Care Team Description 06/15/2022 Appointment Orthopedics Vanna Ulloa MD [address] [place], [place] [address] (Wo rk) documented as of this encounter Visit Diagnoses Not on filedocumented in this encounter Care Teams Bunk Assembler Relationship Specialty Start Date End Date Md Garcia MD PCP - General 08/16/10 01/17/12 [place], [place] [address] documented as of this encounter
--- OUTSIDE RECORDS SUMMARY | 2022-04-22 14:10 | XMS_ITS | Encounter Summary ---
:1965 Author Organization [facility] Address [address] [place] [address] Care Team Providers Name Role Phone Md GEOVANNY Garcia Primary Care Provider Encounter Details Date Type Department Care Team Description 03/03/2005 Office Visit [facility] Roge Denton MD Pulmonary Medicine [address] [facility] [address] [facility] [address] [place] [id number] [phone] Social History Tobacco Use Types Packs/Day Years Used Date Smoking Tobacco: Never Assessed Sex Assigned at Date Recorded Not on file documented as of this encounter Progress Notes Jackie Denton MD - 03/03/2005 12:01 AM CDT Progress Notes signed by Jackie Denton MD at 04/14/05 0835 Author: Jackie Denton MD Service: (none) Author Type: Physician Filed: 09/04/10 0736 Note Time: 03/03/05 0001 Status: Signed Biodiesel Division Manager: Jackie Denton MD (Physician) NAME: MARCELO LUNA MR: [id number] ACCT: [id number] VISIT: [id number] DICTATING CLINICIAN: JACKIE DENTON MD JOB: [id number] CLINIC PROGRESS NOTE DATE OF VISIT: 03/03/2005 IMPRESSION: Severe sleep apnea. SUBJECTIVE: Marcelo is here for follow up of her sleep apnea; see my previous note for details. She has been on an auto-adjust CPAP. She broke her foot and has not been able to use it all the time. She had used it for a total of 120 hours, 4 hours a day, and used it for 30 days. The 95th percentile pressure was 13-cm. Medium pressure was 9-1/2-cm. She did reasonably well with it. Had a very low AHI while she was on it. She is tolerating it better but she does not like the high pressure. OBJECTIVE: ASSESSMENT: Obstructive sleep apnea, severe. PLAN: The patient is having troubles due to her broken foot using the machine. She also is having some pressure problems. She feels like it is hard to exhale out against the high pressures. I am therefore going to place her on 10-cm for a couple months until she gets used to it and then have her come back with a night ox and then we will follow up and see how well she is tolerating it, and hopefully can increase her pressure back up to the 95th percentile pressure which will take her up to 13-cm. We discussed this in detail for counseling time. Also discussed this is as it relates to her work and re-iterated all the things in my original note, particularly regarding safety issues around her work. Total time 40 minutes, counseling time 25. [id number] C: 03/04/05 06:59 DOCUMENT: [id number] ONETTE PERFORMER documented in this encounter Plan of Treatment Upcoming Encounters Date Type Specialty Care Team Description 06/15/2022 Appointment Orthopedics Vanna Ulloa MD [address] [facility] [address] [place] [address] (Wo rk) documented as of this encounter Visit Diagnoses Not on filedocumented in this encounter Care Teams Manager Regional Sales Relationship Specialty Start Date End Date Md Garcia MD PCP - General 08/16/10 01/17/12 [place] [address] documented as of this encounter
--- OUTSIDE RECORDS SUMMARY | 2022-04-22 14:10 | XMS_ITS | Encounter Summary ---
:1965 [facility] Address [address] [address] Care Team Providers Name Role Phone Md GEOVANNY Garcia Primary Care Provider Encounter Details Date Type Department Care Team Description 12/02/2004 [facility] 393 Amara Rodriguez Sleep Lab Education [address] [place] [address] Social History Tobacco Use Types Packs/Day Years Used Date Smoking Tobacco: Never Assessed Sex Assigned at Date Recorded Not on file documented as of this encounter Progress Notes Bridgett Rodriguez - 12/02/2004 12:01 AM CDT Progress Notes signed by at 12/02/04 1300 Author: Bridgett Rodriguez Service: (none) Author Type: (none) Filed: 09/04/10 0555 Note Time: 12/02/04 0001 Status: Signed Gas Flow Regulator: Cesar Sher SLEEP DISORDER NOTE Ankit from [facility] called the CPAP/Sleep Information Line about Liz's PAP orders. During the sleep study, the night tech felt that an incomplete titration was done. The patient was set up on an AutoPAP of 5-15 cmH20. Later that week the sleep study was scored and revealed that 7 cmH20 was sufficient in treating her obstructive sleep apnea. The patient has been using the AutoPAP since the sleep study and she will be changed to 7 cmH20 per the orders. RN documented in this encounter Plan of Treatment Upcoming Encounters Date Type Specialty Care Team Description 06/15/2022 Appointment Orthopedics [facility] Ulloa MD [address] [facility] [address] (Wo rk) documented as of this encounter Visit Diagnoses Not on filedocumented in this encounter Care Teams Internetworking Technician Relationship Specialty Start Date End Date Md Garcia MD PCP - General 08/16/10 01/17/12 [place] [address] documented as of this encounter
--- OUTSIDE RECORDS SUMMARY | 2022-04-22 14:10 | XMS_ITS | Encounter Summary ---
:1965 [facility] Address [address], [place] [address] Care Team Providers Name Role Phone Md GEOVANNY Garcia Primary Care Provider Reason for Visit Reason Comments Other Encounter Details Date Type Department Care Team Description 08/18/2005 Telephone Special[facility] 3931 Roge Denton MD Other Pulmonary Medicine [address] [facility] [address] [place] [address] [place], [place] [address] [phone] Social History Tobacco Use Types Packs/Day Years Used Date Smoking Tobacco: Never Assessed Sex Assigned at Date Recorded Not on file documented as of this encounter Progress Notes Gloria Blanc RN - 08/18/2005 9:51 AM CDT Phone Note filed by Gloria Blanc RN at 09/01/10229 Author: Gloria Blanc RN Service: (none) Author Type: (none) Filed: 09/01/10229 Note Time: 08/18/05950 Status: Signed Hoisting Engine Operator: Cesar Hill called the front desk officer today,seemingly demanding to get in by this Tuesday to see re: work matters that she stated needed to be completed by this Tuesday.She was notified by the front desk officer that he was on vacation this week along with several other physicians.Pt.then called this RN's line,leaving a jade message stating that she needed to get in by the end of this week with one of 's associates by the end of the week this week.This RN called pt.back in a very timely manner after thouroughly reviewing every MD's schedule for the next 3 days.There were no recheck times available.This RN explained to the pt.that we currently have 3 MD's on vacation this week,and that all of the others were completely booked.This RN then suggested that pt.try to get in to see her PMD.This RN then stated to the pt.that if she had needed to get something completed for work by the end of this week,perhaps she should have called earlier,instead of have waited until Tuesday to call and try to get in by this Tuesday. Pt.became upset, stating that this RN didn't understand, I need to get in to see or one of his associates by the end of this week!This RN assured pt.that she did indeed understand and appreciated her situation, however,there just was no way that we could accomodate her at this time.RN apologized several times for this, stating that she did understand, whereupon pt. hung up on this RN.Nurse commissioning manager was made aware of above situation. Created on 18Aug2005 9:51am by GLORIA BLANC Acknowledged by JACKIE DENTON on 4:16pm SERVICES PLUMBER documented in this encounter Plan of Treatment Upcoming Encounters Date Type Specialty Care Team Description 06/15/2022 Appointment Orthopedics Vanna Ulloa MD [address] [facility] [place] [id number] (Wo rk) documented as of this encounter Visit Diagnoses Not on filedocumented in this encounter Care Teams Irrigation Flume Layer Relationship Specialty Start Date End Date Md Garcia MD PCP - General 08/16/10 [facility]/17/12 [facility] [id number] documented as of this encounter
--- OUTSIDE RECORDS SUMMARY | 2022-04-22 14:10 | XMS_ITS | Encounter Summary ---
:1965 Author Organization [facility] Address [address] [place] [address] Care Team Providers Name Role Phone Md GEOVANNY Garcia Primary Care Provider Encounter Details Date Type Department Care Team Description 03/05/2005 PN Conversion Only [facility] N Chauncey Mccray T, [address] [place] [address] [place] [address] [place], [place] [address] (Wo rk) Social History Tobacco Use Types Packs/Day Years Used Date Smoking Tobacco: Never Assessed Sex Assigned at Date Recorded Not on file documented as of this encounter Plan of Treatment Upcoming Encounters Date Type Specialty Care Team Description 06/15/2022 Appointment Orthopedics Vanna Ulloa MD [address] [place] [address] (Wo rk) documented as of this encounter Procedures Procedure Name Priority Date/Time Associated Diagnosis Comme nts STREP GROUP A Routine 03/05/2005 4:08 PM Results for this ANTIGEN TEST CDT procedure are i n the results section. BETA STREP FOLLOWUP Routine 03/05/2005 4:08 PM Re sults for this CDT procedure are i n the results section. documented in this encounter Results Strep Group A Antigen Test (03/05/2005 4:08 PM CDT) Analysis Performed At Patho logist Time Signature Strep Group A Negative Negative HP CONVERSION Antigen Test Comment: Culture to follow. Specimen (Source) Anatomical Collection Method Collection Time Re ceived Time Location / / Volume Laterality 03/05/2005 4:08 PM CDT Chauncey Mccray MD LAB_1 Performing Organization Address City/[facility] Phon e Number HP CONVERSION Beta Strep Followup (03/05/2005 4:08 PM CDT) P athologist Signature Strep Screen SEE TEXT HP CONVERSION Comment: Patient: MARCELO LUNA Rapid Strep Follow up Culture @ ? Collected: ??[id number] ??[id number] Source: Throat ?Processed: ??[id number] ??[id number] Final Report ------ ?[id number] ??[id number] No beta hemolytic Strep group A isolated . @ = Rapid F/U Cult Performed at ??[address] [place], [place] ?[address] Specimen (Source) Anatomical Collection Method Collection Time Re ceived Time Location / / Volume Laterality 03/05/2005 4:08 PM CDT Chauncey Mccray MD LAB_1 Performing Organization Address City/[facility] Phon e Number HP CONVERSION documented in this encounter Visit Diagnoses Not on filedocumented in this encounter Care Teams Bromination Equipment Operator Relationship Specialty Start Date End Date Md Jose, PCP - General 08/16/10 01/17/12 [place] [address] documented as of this encounter
--- OUTSIDE RECORDS SUMMARY | 2022-04-22 14:10 | XMS_ITS | Encounter Summary ---
:1965 Author Organization [facility] Address [address] [place] [address] Care Team Providers Name Role Phone Md GEOVANNY Garcia Primary Care Provider Encounter Details Date Type Department Care Team Description 02/11/2004 Office Visit [facility] Patrice Tony MD [address] [facility] . [address] [place] [address] [place] [address] [phone] (Wo rk) Social History Tobacco Use Types Packs/Day Years Used Date Smoking Tobacco: Never Assessed Sex Assigned at Date Recorded Not on file documented as of this encounter Progress Notes Patrice Tony MD - 02/11/2004 12:01 AM CDT Progress Notes signed by Patrice Tony MD at 02/16/04 1216 Author: Patrice Tony MD Service: (none) Author Type: Physician Filed: 09/04/10 0030 Note Time: 02/11/04 0001 Status: Signed Process Designer: Patrice Tony MD (Physician) NAME: MARCELO LUNA MR: [id number] ACCT: [id number] VISIT: [id number] DICTATING CLINICIAN: PATRICE TONY MD JOB: [id number] CLINIC PROGRESS NOTE DATE OF VISIT: 02/11/2004 SUBJECTIVE: : 1965. The patient comes in for followup of several concerns. 1. She has a history of hyperlipidemia with elevated triglycerides. She has been trying to work on diet, and she is here to get it rechecked. 2. She has a history of gastroesophageal reflux disease, doing well on Zantac, controlled symptoms. 3. History of some fatigue. Tends to be sleepy some during the day. She does snore, but she has not had her note that she pauses with breathing. She otherwise has had no fever or chills. No cough. No shortness of breath. No chest pain. Been more fatigued for several months. OTHER PAST MEDICAL HISTORY: See note 04/25/03. MEDICATIONS: Updated on LastWord. ADR/ALLERGIES: UPDATED ON LASTWORD. HABITS: Does smoke 1 pack per day of cigarettes. REVIEW OF SYSTEMS: No chest pain or abdominal pain. OBJECTIVE: VS: BP: 128/74. P: 80. Wt: 273 lb. OROPHARYNX: Clear. NECK: Supple. Thyroid normal. LUNGS: Clear. CARDIOVASCULAR: Regular rate and rhythm. S1, S2. ABDOMEN: Soft. EXTREMITIES: Nontender. SKIN: No rash. ASSESSMENT: 1. Hyperlipidemia. 2. Gastroesophageal reflux disease. 3. Fatigue. PLAN: Refilled her Zantac. Will check her cholesterol fractionation. She is going to work on diet. Will check a TSH, CBC, and glucose. If fatigue persists, she may consider further evaluation and also consider sleep apnea evaluation. TLB:[id number] C: 02/12/04 16:17 DOCUMENT: [id number] documented in this encounter Plan of Treatment Upcoming Encounters Date Type Specialty Care Team Description 06/15/2022 Appointment Orthopedics Vanna Ulloa MD [address] [facility] [place] [id number] (Wo rk) documented as of this encounter Visit Diagnoses Not on filedocumented in this encounter Care Teams Correctional Supervisor Lieutenant Relationship Specialty Start Date End Date Md Garcia MD PCP - General 08/16/10 01/17/12 [place] [address] documented as of this encounter
--- OUTSIDE RECORDS SUMMARY | 2022-04-22 14:10 | XMS_ITS | Encounter Summary ---
:1965 Author Organization [facility] Address [address] [place] [address] Care Team Providers Name Role Phone Md GEOVANNY Garcia Primary Care Provider Encounter Details Date Type Department Care Team Description 08/31/2005 Office Visit [facility] [address] Ear, Akash Yanez PA-C Nose, and Throat [address] [place] [phone] (Wo rk) Social History Tobacco Use Types Packs/Day Years Used Date Smoking Tobacco: Never Assessed Sex Assigned at Date Recorded Not on file documented as of this encounter Progress Notes Vangie Yanez PA-C - 08/31/2005 12:01 AM CDT Progress Notes signed by Vangie Yanez PA-C at 09/01/05 1118 Author: Vangie Yanez PA-C Service: (none) Author Type: Physician Hand Coremaker Filed: 09/04/10 1119 Note Time: 08/31/05 0001 Status: Signed Supervisor Pumping: Vangie Yanez PA-C (Physician Hand Coremaker) NAME: MARCELO LUNA MR: [id number] ACCT: [id number] VISIT: [id number] DICTATING CLINICIAN: Vagnie Sorenson PA-C JOB: [id number] CLINIC PROGRESS NOTE DATE OF VISIT: 08/31/2005 SUBJECTIVE: : 1965. Chief Complaint: Nasal congestion. HPI: Patient is new to the clinic. She is self-referred today. Patient has had chronic nasal congestion it sounds most of her life, it has been particularly bad the last 6 to 8 months. She does use CPAP and uses nasal pillows. She has been using Nasonex, but does not sound to be using the correct technique. She has had occasional bloody mucus when she blows her nose. She does have some anterior discharge that she blows out that is often colored or brown, more in the afternoon. Has tried saline spray but it just made her choke and cough. She has never had a sinus CT scan. Has not been on recent antibiotics for sinusitis. She stopped going in for sinus infections, as antibiotics did not seem to help. Is unaware of any seasonal change to her symptoms, they seem to occur all year round, is unaware of any seasonal allergies. Denies any change in her smell or taste unless she becomes very congested. She has occasional facial pressure and pain. Some slight postnasal drip as well. Mentions a little bit of soreness in the nostril area, after using her nasal pillows, at times. Denies any ear or throat concerns. REVIEW OF SYSTEMS: Otherwise complete and as mentioned above. PAST MEDICAL HISTORY: Reviewed in LastWord. CURRENT MEDICATIONS: Prilosec, Nasonex, multivitamin, and ibuprofen as needed. ADR/ALLERGIES: NONE KNOWN. 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 SURGICAL HISTORY: Bilateral tubal ligation. FAMILY HISTORY: No history of any sinus or allergy problems. OBJECTIVE: Alert, 39-year-old, obese, female in no acute distress. Head: Atraumatic, normocephalic, normal facial strength and symmetry, normal voice quality. Ears: Normal external appearance. Pinnae and tragus are nontender. Canals show a small amount of cerumen present. TMs have normal appearance. Eyes: Sclerae and conjunctivae were clear. Nose: She has nasal congestion more on the right versus the left, at this time, a little bit of blood tinged mucus on the right and some crusting. Nasal membranes appear dry. Oral cavity: Normal lips, teeth, gingivae, oral mucosa, and tongue. Tonsils are 2 to 3+, but symmetric, she has enlarged base of tongue and redundancy of the soft palate. NECK: Soft and supple without any palpable lymphadenopathy, thyromegaly, masses or tenderness. Trachea is midline. Direct Nasopharyngoscopy: Under topical anesthesia, with Corbin-Synephrine and Xylocaine spray, using the fiber optic flexible scope, bilateral nasal endoscopy shows a little bit of nasal crusting, but no significant discharge, no polyps. The posterior nasopharynx is clear, she has minimal adenoid tissue present. ASSESSMENT: 1. Nasal congestion. 2. Obstructive sleep apnea. PLAN: Would recommend saline irrigations twice daily, encouraged her to lean her head forward, a bulb syringe and recipe were provided. I also discussed technique for using the Nasonex. Will order sinus CT scan for further evaluation and call her with the results, first her home number and, if not available, will call her cell phone at [phone]. Questions are answered and she was in agreement with this plan. JMS:[id number] C: 09/01/05 10:17 DOCUMENT: [id number] documented in this encounter Plan of Treatment Upcoming Encounters Date Type Specialty Care Team Description 06/15/2022 Appointment Orthopedics Vanna Ulloa MD [address] [place] [address] (Wo rk) documented as of this encounter Procedures Procedure Name Priority Date/Time Associated Diagnosis Comme nts CT SINUS WO IV CONT Routine 08/31/2005 4:07 PM Re sults for this CDT procedure are i n the results section. documented in this encounter Results CT Sinus WO IV Cont (08/31/2005 4:07 PM CDT) Anatomical Region Laterality Modality Head Other Specimen (Source) Anatomical Location Collection Method / Collectio n Time Received Time / Laterality Volume Narrative 08/31/2005 4:07 PM CDT Sinuses were scanned coronally and show clear sphenoid sinuses with clear ethmoid and small frontal sinuses. ??Maxillary sinuses likewise clear. ??Nasal congestion on the right p ermanent hypertrophy of the right inferior turbinate. ??No evidence for acute sinusitis. 31 Dictating JACKY PENN MD Procedure Note Jacky Gusman - 07/19/2016 Sinuses were scanned coronally and show clear sphenoid sinuses with clear ethmoid and small frontal sinuses. Maxillary sinuses likewise clear. Nasal congestion on the right per manent hypertrophy of the right inferior turbinate. No evidence fo r acute sinusitis. [id number] Dictating JACKY PENN MD Vangie Yanez PA-C RAD CT documented in this encounter Visit Diagnoses Not on filedocumented in this encounter Care Teams Strip Machine Operator Relationship Specialty Start Date End Date Md Garcia MD PCP - General 08/16/10 01/17/12 [place] [address] documented as of this encounter
--- OUTSIDE RECORDS SUMMARY | 2022-04-22 14:10 | XMS_ITS | Encounter Summary ---
:1965 Author Organization [facility] Address [address] [place] [address] Care Team Providers Name Role Phone Md GEOVANNY Garcia Primary Care Provider Encounter Details Date Type Department Care Team Description 09/03/2005 PN Conversion Only [facility] [address] [place] [address] Social History Tobacco Use Types Packs/Day Years Used Date Smoking Tobacco: Never Assessed Sex Assigned at Date Recorded Not on file documented as of this encounter Plan of Treatment Upcoming Encounters Date Type Specialty Care Team Description 06/15/2022 Appointment Orthopedics Vanna Ulloa MD [address] [place], [place] [address] (Wo rk) documented as of this encounter Visit Diagnoses Not on filedocumented in this encounter Care Teams Petroleum Sampler Relationship Specialty Start Date End Date Md Garcia MD PCP - General 08/16/10 01/17/12 [place], [place] [address] documented as of this encounter
--- OUTSIDE RECORDS SUMMARY | 2022-04-22 14:10 | XMS_ITS | Encounter Summary ---
:1965 Author [facility] Address [address] [place] [address] Care Team Providers Name Role Phone Md GEOVANNY Garcia Primary Care Provider Reason for Visit Reason Comments Other Encounter Details Date Type Department Care Team Description 09/01/2005 Telephone [facility] [address] Ear, Akash Yanez PA-C Other Nose, and Throat [address] [place] [phone] (Wo rk) Social History Tobacco Use Types Packs/Day Years Used Date Smoking Tobacco: Never Assessed Sex Assigned at Date Recorded Not on file documented as of this encounter Progress Notes Vicente Yanez PA-C - 09/01/2005 9:42 AM CDT Phone Note filed by Vicente Yanez PA-C at 09/01/10299 Author: Vicente Yanez PA-C Service: (none) Author Type: Physician Supervisor Tellers Filed: 09/01/10299 Note Time: 09/01/05941 Status: Signed Validation Software Facilitator: Vicente Yanez PA-C (Physician Supervisor Tellers) Please inform pt of overall normal sinus CT, no sign of infection. Nasal congested is noted on the right side which was seen on exam. No further recommendations other than what was discussed at appt: saline rinse, Nasonex-using this appropriately, aiming outwards. Created on 01Sep2005 9:42am by VICENTE ROMERO On 01Sep2005 9:53am EULALIA MCKEON wrote: Spoke to patient and gave her the results. Acknowledged by EULALIA MCKEON on 9:53am Acknowledged by VICENTE ROMERO on 9:54am DESK TEAM LEADER documented in this encounter Plan of Treatment Upcoming Encounters Date Type Specialty Care Team Description 06/15/2022 Appointment Orthopedics Vanna Ulloa MD [address] [place] [address] (Wo rk) documented as of this encounter Visit Diagnoses Not on filedocumented in this encounter Care Teams Bedspring Assembler Relationship Specialty Start Date End Date Md Garcia MD PCP - General 08/16/10 01/17/12 [place], [place] [id number] documented as of this encounter
--- OUTSIDE RECORDS SUMMARY | 2022-04-22 14:10 | XMS_ITS | Encounter Summary ---
:1965 [facility] Address [address] [place] [address] Care Team Providers Name Role Phone Md GEOVANNY Garcia Primary Care Provider Encounter Details Date Type Department Care Team Description 08/03/2005 Office Visit [facility] Patrice Tony MD [address] [facility] . [address] [place] [address] [place] [address] [phone] (Wo rk) Social History Tobacco Use Types Packs/Day Years Used Date Smoking Tobacco: Never Assessed Sex Assigned at Date Recorded Not on file documented as of this encounter Last Filed Vital Signs Vital Sign Reading Time Taken Comments Blood Pressure 130/78 08/03/2005 4:34 PM HOGSHEAD BUILDER Pulse 84 08/03/2005 4:34 PM HOGSHEAD BUILDER Temperature - - Respiratory Rate - - Oxygen Saturation - - Inhaled Oxygen Concentration - - Weight 129.7 kg (285 lb 15.7 08/03/2005 4:34 PM C: 129. 7kg oz) HOGSHEAD BUILDER Height - - Body Mass Index - - documented in this encounter Progress Notes Patrice Tony MD - 08/03/2005 12:01 AM CST Progress Notes signed by Patrice Tony MD at 08/27/05 1404 Author: Patrice Tony MD Service: (none) Author Type: Physician Filed: 09/04/10 1044 Note Time: 08/03/05 0001 Status: Signed Automatic Beam Warper Tender: Patrice Tony MD (Physician) NAME: MARCELO LUNA MR: [id number] ACCT: [id number] VISIT: [id number] DICTATING CLINICIAN: PATRICE TONY MD JOB: [id number] CLINIC PROGRESS NOTE DATE OF VISIT: 08/03/2005 SUBJECTIVE: : 1965. A 39-year-old female that comes in complaining of possible restless leg syndrome. She states for the last 2 years, especially at night with sitting she gets a sensation in her legs, describes it has having to move them. Does not feel quite normal. Not really numb, no pain. Seems to be a little more on the right compared to the left. She is not having any specific back pain, no radiating pain down the legs. She does not notice any redness or swelling of the legs. She does have a history of sleep apnea and now is on APAP and that seems to be working fairly well. Next, she has had problems with chronic sinus congestion and she uses Nasonex. It seems to help but she is going to be flying soon, we did discuss nasal sprays such as decongestant during sleeping as well as Mucinex to see if that helps. MEDICATIONS: Updated in LastWord. ADR/ALLERGIES: UPDATED IN LASTWORD. HABITS: Smoker. REVIEW OF SYSTEMS: No fevers, no cough. OBJECTIVE: VS: BP: 130/78. P: 84. Eyes are clear. Nose: Slight nasal congestion. Ears clear. Oropharynx clear. NECK: Supple. LUNGS: Clear. CARDIOVASCULAR: Regular rate and rhythm, S1, S2. ABDOMEN: Soft. EXTREMITIES: Nontender, no edema. Sensation intact. SKIN: Shows no rash or redness. ASSESSMENT: 1. Restless leg syndrome. Discussed treatment options. Discussed also could consider consult with pulmonary and she will consider that option. Will check iron level. Also discussed checking a glucose even though symptoms are not exactly paresthesia, will just make sure not hyperglycemic. 2. Chronic rhinitis. Discussed a decongestant as needed p.r.n. and continue Nasonex. 3. Sleep apnea. She is to continue with her APAP. PLAN: See assessment. TLB:[id number] C: 08/04/05 16:49 DOCUMENT: [id number] documented in this encounter Plan of Treatment Upcoming Encounters Date Type Specialty Care Team Description 06/15/2022 Appointment Orthopedics Vanna Ulloa MD [address] [facility] [place] [address] (Wo rk) documented as of this encounter Visit Diagnoses Not on filedocumented in this encounter Care Teams Import And Export Clerk Relationship Specialty Start Date End Date Md Garcia MD PCP - General 08/16/10 01/17/12 [place] [address] documented as of this encounter
--- OUTSIDE RECORDS SUMMARY | 2022-04-22 14:10 | XMS_ITS | Encounter Summary ---
:1965 Author Organization [facility] Address [address] [place] [address] Care Team Providers Name Role Phone Md GEOVANNY Garcia Primary Care Provider Encounter Details Date Type Department Care Team Description 08/20/2004 [facility] [address] [facility] . [address] [place] [address] [place] [address] [phone] (Wo rk) Social History Tobacco Use Types Packs/Day Years Used Date Smoking Tobacco: Never Assessed Sex Assigned at Date Recorded Not on file documented as of this encounter Progress Notes Patrice Tony MD - 08/20/2004 12:01 AM CDT Progress Notes signed by Patrice Tony MD at 08/24/04 1550 Author: Patrice Tony MD Service: (none) Author Type: Physician Filed: 09/04/100 Note Time: 08/20/04 0001 Status: Signed Construction Consultant: Patrice Tony MD (Physician) NAME: MARCELO LUNA MR: [id number] ACCT: [id number] VISIT: [id number] DICTATING CLINICIAN: PATRICE TONY MD JOB: [id number] CLINIC PROGRESS NOTE DATE OF VISIT: 08/20/2004 SUBJECTIVE: : 1965. A 38-year-old female that comes in with several concerns. 1. Last several weeks, complaining of some problems with worsening nasal congestion and headaches. The headaches seem to be coming more from the occiput area, occasionally in the frontal area. She also has some neck stiffness with the headaches. Has been seeing a chiropractor and that actually seems to be helping. She is not getting any symptoms in the arms. She has not had any fevers or chills. She has been having a little bit of a cough, is using Afrin nasal spray, but no persistent sinus pain or tooth pain. No fevers. 2. She is interested in trying to quit smoking. She is interested in trying something like Zyban or the patches. Discussed the use and side effects. She smokes up to one pack per day. 3. She has been complaining of some fatigue that has been going on for a number of months. We did evaluate that earlier in the year and had a CBC and TSH which were normal. She has a lot of snoring. We discussed possibly sleep apnea evaluation because her snoring has gotten worse. Sometimes she seems to be trying to catch her breath at night when her watches her sleep, and also the nasal congestion could be an aggravating factor also. She does have some history of depression, but she states that is doing actually fairly well. Other history significant for hyperlipidemia, gastroesophageal reflux disease. MEDICATIONS: Updated LastWord. ADR/ALLERGIES: UPDATED LASTWORD. HABITS: Three-fourths to one pack per day of cigarettes. REVIEW OF SYSTEMS: No chest pain. Currently no shortness of breath. Does have a little bit of a cough. OBJECTIVE: VS: BP: 130/80. P: 98. Wt: 278 lb. Eyes are clear. Extraocular movements intact. Ears clear. There was some nasal congestion. Oropharynx clear. Moist mucous membranes. NECK: Supple. Thyroid is normal. LUNGS: Clear to auscultation. CARDIOVASCULAR: Regular rate and rhythm. S1, S2. Examination of the neck reveals some tenderness along the paracervical muscle of the neck with good range of motion. Strength of the extremities intact. ASSESSMENT: 1. Headache, probably related to some neck pain. 2. Fatigue, possibly related to sleep apnea and heavy snoring. May also have some chronic rhinitis which could be aggravating her symptoms. 3. Nicotine addiction, tobacco abuse. PLAN: We will get her set with a referral to her chiropractor since that seems to be helping with her neck pain. She is going to get a pulmonary consult for possible sleep apnea. Will try some Nasonex for the sinuses and see if that improves her symptoms. She is going to try to quit smoking. Discussed use of Zyban. Will start on 150 mg daily, increase to twice daily. Discussed side effects including risk of seizure, handout was given. Going to also be trying nicotine patches. Discussed use and side effects. She will follow up in the next month pending the results of her treatment plan, sooner if any worsening symptoms. TLB:[id number] C: 08/21/04 12:31 DOCUMENT: [id number] documented in this encounter Plan of Treatment Upcoming Encounters Date Type Specialty Care Team Description 06/15/2022 Appointment Orthopedics Vanna Ulloa MD [address] [place] [address] (Wo rk) documented as of this encounter Visit Diagnoses Not on filedocumented in this encounter Care Teams Insurance Solicitor Relationship Specialty Start Date End Date Md Garcia MD PCP - General 08/16/10 01/17/12 [place] [address] documented as of this encounter
--- OUTSIDE RECORDS SUMMARY | 2022-04-22 14:10 | XMS_ITS | Encounter Summary ---
:1965 [facility] Address [address] [place] [address] Care Team Providers Name Role Phone Md GEOVANNY Garcia Primary Care Provider Reason for Visit Reason Comments Other Encounter Details Date Type Department Care Team Description 02/19/2004 Telephone [facility] Shabana Diaz RN Other [address] [facility] [place] [address] Social History Tobacco Use Types Packs/Day Years Used Date Smoking Tobacco: Never Assessed Sex Assigned at Date Recorded Not on file documented as of this encounter Progress Notes Shabana Diaz RN - 02/19/2004 8:09 AM CDT Phone Note filed by Shabana Diaz RN at 08/31/10 7679 Author: Shabana Diaz RN Service: (none) Author Type: Registered Nurse Filed: 08/31/10 1437 Note Time: 02/19/04 0809 Status: Signed Global Security Architect: Shabana Diaz RN (Registered Nurse) Pt called about eye pain she is having in one eye when waking up this am. Has been tearing up the kitchen which she was doing last night. The pain is quite severe. No vision changes apparently. Pt states she needs to get a referral. Nurse referenced Eye Adult guideline. Advised pt be seen in the ER in industry or if she can get into an opthalmologist stat. Pt agrees with plan of care and plans to call her insurance first. Created on 19Feb2004 8:09am by SHABANA DIAZ On 19Feb2004 8:46am BERNARDOCORNELIUSSALVATORE wrote: Patient calling; OD red, tearing, photosensitive; no contact lens wear. Would like to go to [facility], but needs a referral. Advised this is care we can provide. Scheduled with Dr. Montaño, patient instructed to come right in. documented in this encounter Plan of Treatment Upcoming Encounters Date Type Specialty Care Team Description 06/15/2022 Appointment Orthopedics Vanna Ulloa MD [address] [place], [place] [address] (Wo rk) documented as of this encounter Visit Diagnoses Not on filedocumented in this encounter Care Teams Drawer In Relationship Specialty Start Date End Date Md Garcia MD PCP - General 08/16/10 01/17/12 [place] [address] documented as of this encounter
--- OUTSIDE RECORDS SUMMARY | 2022-04-22 14:10 | XMS_ITS | Encounter Summary ---
:1965 Author Organization [facility] Address [address], [place] [address] Care Team Providers Name Role Phone Md GEOVANNY Garcia Primary Care Provider Encounter Details Date Type Department Care Team Description 06/30/2004 PN Conversion Only [place] CONVERSION Manan Ahumada, [address] [facility] [place] [address] [address] [facility] [address] [place], [place] [address] (Wo rk) Social History Tobacco Use Types Packs/Day Years Used Date Smoking Tobacco: Never Assessed Sex Assigned at Date Recorded Not on file documented as of this encounter Plan of Treatment Upcoming Encounters Date Type Specialty Care Team Description 06/15/2022 Appointment Orthopedics Vanna Ulloa MD [address] [place], [place] [address] (Wo rk) documented as of this encounter Procedures Procedure Name Priority Date/Time Associated Comments Diagnosis ANATOMICAL PATH Routine 06/30/2004 8:14 AM Result s for this LIQUID BASED AS400 ADMINISTRATOR procedure are i n the results section. documented in this encounter Results Pap Smear (06/30/2004 8:14 AM AS400 ADMINISTRATOR) [facility] Method Time Signature PAP Smear SEE TEXT No normal HP CONVERSION Liquid Based range Comment: Patient: MARCELO LUNA ? CERVICAL CYTOLOGY REPORT Pathology # ??[id number] ?Date Obtained: ? Date Received: CYTOLOGIC IMPRESSION: Negative for intraepithelial lesion or m alignancy. ? KETURAH TIONAL DATA LMP: ?06-15-04 CLINICAL HIST ? PREV PAP NORM 11-20-03 ,ACC 90164,CONE BX 05-19 LIQUID BASED PAP CERVICAL SPECIMEN ADEQUACY: ?? Satisfactory. ENDOCERVICAL CELLS: ??Present. Verified 07/09/04 by: ??Nitin Sanchez M.D. ? (electronic signature) Specimen (Source) Anatomical Collection Method Collection Time Re ceived Time Location / / Volume Laterality 06/30/2004 8:14 AM AS400 ADMINISTRATOR Manan Ahumada MD LAB_1 Performing Organization Address City/State/ZIP Code Phon e Number HP CONVERSION documented in this encounter Visit Diagnoses Not on filedocumented in this encounter Care Teams Geophysical Prospector Relationship Specialty Start Date End Date Md Garcia MD PCP - General 08/16/10 01/17/12 [place] [address] documented as of this encounter
--- OUTSIDE RECORDS SUMMARY | 2022-04-22 14:10 | XMS_ITS | Encounter Summary ---
:1965 [facility] Address [address] [place] [address] Care Team Providers Name Role Phone Md GEOVANNY Garcia Primary Care Provider Reason for Visit Reason Comments Other Encounter Details Date Type Department Care Team Description 03/24/2005 Telephone [facility] Kellee Bonner RN Other [address] [facility] [place] [address] Social History Tobacco Use Types Packs/Day Years Used Date Smoking Tobacco: Never Assessed Sex Assigned at Date Recorded Not on file documented as of this encounter Progress Notes Kellee Bonner RN - 03/24/2005 7:50 PM CST Phone Note filed by Kellee Bonner RN at 08/31/102206 Author: Kellee Bonner RN Service: (none) Author Type: Registered Nurse Filed: 08/31/102206 Note Time: 03/24/05 1950 Status: Signed Petrophysicist: Kellee Bonner RN (Registered Nurse) CLINICIAN FOLLOW-UP: None IMPRESSION: Nausea SYMPTOMS: Patient calling with questions regarding sign and symptoms of dehydration. Discussed patient and daughter seen in Er last noc for gastroenteritis recieved 2 l of fluids. Today drank 2 cups of fluids, mouth dry, last urinated 1.5 hours ago. Continues to have body aches and says,sensation of numb all over. Reinforced home care advise discussed reason for evaluation.. Denies emergent, urgent, semi-urgent symptoms PATIENT INFORMATION: Problem List: Reviewed today in LastWord INTERIM/HOME MANAGEMENT RECOMMENDATIONS: Home care advise per Adult Guidlines - Gi Advised to call back if any of the following occur: symptoms worsen or persist, PLAN: HOME MANAGEMENT Patient/Caller agrees with plan and denies additional questions. *SH~PNNL~SCHOLAR ~ Created on 24Mar2005 7:50pm by KELLEE BONNER AND DIE DESIGNER documented in this encounter Plan of Treatment Upcoming Encounters Date Type Specialty Care Team Description 06/15/2022 Appointment Orthopedics Vanna Ulloa MD [address] [facility] [address] [place]ques [place] [address] (Wo rk) documented as of this encounter Visit Diagnoses Not on filedocumented in this encounter Care Teams Computer Systems Software Engineer Relationship Specialty Start Date End Date Md Garcia MD PCP - General 08/16/10 01/17/12 [place] [address] documented as of this encounter
--- OUTSIDE RECORDS SUMMARY | 2022-04-22 14:10 | XMS_ITS | Encounter Summary ---
:1965 Author Organization [facility] Address [address] [place] [address] Care Team Providers Name Role Phone Md GEOVANNY Garcia Primary Care Provider Encounter Details Date Type Department Care Team Description 03/29/2005 Office Visit [facility] Suri Florez [address] [facility] [place] [address] [phone] [place], [place] [address] Social History Tobacco Use Types Packs/Day Years Used Date Smoking Tobacco: Never Assessed Sex Assigned at Date Recorded Not on file documented as of this encounter Progress Notes Suri Florez MD - 03/29/2005 12:01 AM CST Progress Notes signed by Suri Henao MD at 03/29/05 1503 Author: Suri Henao MD Service: (none) Author Type: Physician Filed: 09/04/10 0807 Note Time: 03/29/05 0001 Status: Signed Wind Turbine Performance Engineer: Suri Henao MD (Physician) SUBJECTIVE: Liz comes in today for follow right ankle fracture. She was in a cam Walker for five weeks. She had discontinued the cam Walker on her own four days ago. She has been walking in a normal shoe since that time. Has had no ankle pain. No swelling no bruising no erythema. OBJECTIVE: Vital Signs : Reviewed; See Flowsheet Charting in LastWord. General: A pleasant female in no apparent distress. Right ankle: She has full range of motion of the ankle. No tenderness over the medial or lateral malleolus. No tenderness over the anterior talofibular ligament. X-ray shows healed fracture. ASSESSMENT: 31 year old female with healed right ankle fracture. PLAN: Okay to return to normal activities. Discussed slowly increasing her activities to her normal level. She will return if she has worsening of her symptoms. BURNER documented in this encounter Plan of Treatment Upcoming Encounters Date Type Specialty Care Team Description 06/15/2022 Appointment Orthopedics Vanna Ulloa MD [address] [place] [address] (Wo rk) documented as of this encounter Procedures Procedure Name Priority Date/Time Associated Diagnosis Comme nts XR ANKLE RT 3 VIEWS Routine 03/29/2005 11:30 AM R esults for this CANE BURNER procedure are i n the results section. documented in this encounter Results XR Ankle Rt 3 Views (03/29/2005 11:30 AM CANE BURNER) Anatomical Region Laterality Modality Lower Extremity, Ankle, Foot & Ankle Oth er Specimen (Source) Anatomical Location Collection Method / Collectio n Time Received Time / Laterality Volume Narrative 03/29/2005 11:30 AM CANE BURNER HISTORY: ??Fracture. COMPARISON: ??03/03/05. Some interval healing change of the late ral malleolar fracture with stable and satisfactory position and ali gnment. ??No other change. [id number] Dictating DARSHAN ANDERSON RADIOLOGIST Procedure Note Darshan Vargas - 07/19/2016Formatting o f this note might be different from the original. HISTORY: Fracture. COMPARISON: 03/03/05. Some interval healing change of the late ral malleolar fracture with stable and satisfactory position and ali gnment. No other change. [id number]/ss Dictating DARSHAN ANDERSON RADIOLOGIST Suri Henao MD RAD GD documented in this encounter Visit Diagnoses Not on filedocumented in this encounter Care Teams Greenstone Polisher Operator Relationship Specialty Start Date End Date Md Garcia MD PCP - General 08/16/10 01/17/12 [place] [address] documented as of this encounter
--- OUTSIDE RECORDS SUMMARY | 2022-04-22 14:10 | XMS_ITS | Encounter Summary ---
:1965 [facility] Address [address] [place] [address] Care Team Providers Name Role Phone Md GEOVANNY Garcia Primary Care Provider Encounter Details Date Type Department Care Team Description 03/05/2005 Office Visit [facility] [place] [address] [place], [place] [address] (Wo rk) Social History Tobacco Use Types Packs/Day Years Used Date Smoking Tobacco: Never Assessed Sex Assigned at Date Recorded Not on file documented as of this encounter Last Filed Vital Signs Vital Sign Reading Time Taken Comments Blood Pressure 110/80 03/05/2005 2:36 PM CDT Pulse 90 03/05/2005 2:36 PM CDT Temperature - - Respiratory Rate - - Oxygen Saturation - - Inhaled Oxygen Concentration - - Weight - - Height - - Body Mass Index - - documented in this encounter Progress Notes Chauncey Mccray MD - 03/05/2005 12:01 AM CDT Progress Notes signed by Chauncey Mccray MD at 03/05/05 9123 Author: Chauncey Mccray MD Service: (none) Author Type: Physician Filed: 09/04/10 0739 Note Time: 03/05/05 0001 Status: Signed Water Hauler: Chauncey Mccray MD (Physician) Acute Clinic Visit IMPRESSION: Viral URI Acute Bacterial Bronchitis SUBJECTIVE: Chief Complaint: URI symptoms History of Present Illness: Patient has felt feverish but hasn't taken temperature. Symptoms worsening Fatigue No headache No eye pain Ear pain Nasal congestion/rhinorrhea Sore throat No neck stiffness Cough No chest pain No shortness of breath Meds This Illness: No acute medications being used Past History: Adverse Drug Reactions: Patient's ADR's were reviewed and updated today on the Health Profile screen of LastWord Chronic Medications: reviewed and updated today on Health Profile in LastWord. OBJECTIVE: Vital Signs: Vital Signs taken today were reviewed on the flowsheet in LastWord. General Appearance: Mildly ill-appearing Eyes: External exam is normal bilaterally Ears: Bilateral pinnae, canals and TMs normal Oropharynx: tonsils erythematous Neck: Supple without significant adenopathy or thyromegaly Respiratory: Lung sounds clear to auscultation without respiratory distress Lab & X-Ray: Rapid strep test is negative. ASSESSMENT: Viral URI Acute Bacterial Bronchitis PLAN: Throat Culture pending Zithromax Z-Darius 250 mg. as directed Symptomatic care Acetaminophen Oral Decongestants RTC PRN if not gradually improving *SH~PC~URIL ~[place] Note completed on: 03/05/2005 3:05 PM documented in this encounter Plan of Treatment Upcoming Encounters Date Type Specialty Care Team Description 06/15/2022 Appointment Orthopedics Vanna Ulloa MD [address] [place] [address] (Wo rk) documented as of this encounter Visit Diagnoses Not on filedocumented in this encounter Care Teams Thoracic Surgeon Relationship Specialty Start Date End Date Md Garcia MD PCP - General 08/16/10 01/17/12 [place] [address] documented as of this encounter
--- OUTSIDE RECORDS SUMMARY | 2022-04-22 14:10 | XMS_ITS | Encounter Summary ---
:1965 Author Organization [facility] Address [address] [place] [address] Care Team Providers Name Role Phone Md GEOVANNY Garcia Primary Care Provider Encounter Details Date Type Department Care Team Description 09/29/2004 PN Conversion Only [place] CONVERSION [address] [place] [address] Social History Tobacco Use Types Packs/Day Years Used Date Smoking Tobacco: Never Assessed Sex Assigned at Date Recorded Not on file documented as of this encounter Plan of Treatment Upcoming Encounters Date Type Specialty Care Team Description 06/15/2022 Appointment Orthopedics Vanna Ulloa MD [address] [place], [place] [address] (Wo rk) documented as of this encounter Visit Diagnoses Not on filedocumented in this encounter Care Teams Principal Java Software Engineer Relationship Specialty Start Date End Date Md Garcia MD PCP - General 08/16/10 01/17/12 [place], [place] [id number] documented as of this encounter
--- OUTSIDE RECORDS SUMMARY | 2022-04-22 14:10 | XMS_ITS | Encounter Summary ---
:1965 [facility] Address [address] [place] [address] Care Team Providers Name Role Phone Md GEOVANNY Garcia Primary Care Provider Encounter Details Date Type Department Care Team Description 09/29/2004 PN Conversion Only [place] CONVERSION Mian Tony MD [address] [facility] [address] [place] [address] [place], [place] [address] (Wo rk) Social History Tobacco Use Types Packs/Day Years Used Date Smoking Tobacco: Never Assessed Sex Assigned at Date Recorded Not on file documented as of this encounter Plan of Treatment Upcoming Encounters Date Type Specialty Care Team Description 06/15/2022 Appointment Orthopedics Vanna Ulloa MD [address] [place], [place] [address] (Wo rk) documented as of this encounter Procedures Procedure Name Priority Date/Time Associated Diagnosis Comme nts [facility] DOT UA DIP Routine 09/29/2004 1:39 PM Result s for this CDT procedure are i n the results section. documented in this encounter Results [facility] Dot Ua Dip (09/29/2004 1:39 PM CDT) [facility] gist Method Time Signature Urine Glucose Negative Negative HP CONVERSION Urine Protein Negative Neg-Trac HP CONVERSION Urine Specific 1.025 1.005 - 25 HP CONVERSION [place] Blood Urine Negative Negative HP CONVERSION Specimen (Source) Anatomical Collection Method Collection Time Re ceived Time Location / / Volume Laterality 09/29/2004 1:39 PM CDT Mian Tony MD LAB_1 Performing Organization Address City/State/ZIP Code Phon e Number HP CONVERSION documented in this encounter Visit Diagnoses Not on filedocumented in this encounter Care Teams Manufacturing Coordinator Relationship Specialty Start Date End Date Md Jose, PCP - General 08/16/10 01/17/12 [place] [address] documented as of this encounter
--- OUTSIDE RECORDS SUMMARY | 2022-04-22 14:10 | XMS_ITS | Encounter Summary ---
:1965 Author Organization [facility] Address [address] [place] [address] Care Team Providers Name Role Phone Md GEOVANNY Garcia Primary Care Provider Encounter Details Date Type Department Care Team Description 09/29/2004 Office Visit [facility] Patrice Tony MD [address] [facility] . [address] [place] [address] [place] [address] [phone] (Wo rk) Social History Tobacco Use Types Packs/Day Years Used Date Smoking Tobacco: Never Assessed Sex Assigned at Date Recorded Not on file documented as of this encounter Progress Notes Patrice Tony MD - 09/29/2004 12:01 AM CDT H&P signed by Patrice Tony MD at 10/02/04 1638 Author: Patrice Tony MD Service: (none) Author Type: Physician Filed: 09/04/10 0446 Note Time: 09/29/04 0001 Status: Signed Admitting Representative: Patrice Tony MD (Physician) NAME: MARCELO LUNA MR: [id number] ACCT: [id number] VISIT: [id number] DICTATING CLINICIAN: PATRICE TONY MD JOB: [id number] CLINIC PHYSICAL DATE OF VISIT: 09/29/2004 SUBJECTIVE: : 1965. 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 OBJECTIVE: ASSESSMENT: PLAN: See form for details. TLB:[id number] C: 09/30/04 13:22 DOCUMENT: [id number] documented in this encounter Plan of Treatment Upcoming Encounters Date Type Specialty Care Team Description 06/15/2022 Appointment Orthopedics Vanna Ulloa MD [address] [facility] [address] [place] [address] (Wo rk) documented as of this encounter Visit Diagnoses Not on filedocumented in this encounter Care Teams Farm Implement Engine Mechanic Relationship Specialty Start Date End Date Md Garcia MD PCP - General 08/16/10 01/17/12 [place] [address] documented as of this encounter
--- OUTSIDE RECORDS SUMMARY | 2022-04-22 14:10 | XMS_ITS | Encounter Summary ---
:1965 Author Organization [facility] Address [address] [place] [address] Care Team Providers Name Role Phone Md GEOVANNY Garcia Primary Care Provider Encounter Details Date Type Department Care Team Description 02/23/2005 PN Conversion Only [place] CONVERSION [address] [place] [address] Social History Tobacco Use Types Packs/Day Years Used Date Smoking Tobacco: Never Assessed Sex Assigned at Date Recorded Not on file documented as of this encounter Plan of Treatment Upcoming Encounters Date Type Specialty Care Team Description 06/15/2022 Appointment Orthopedics Vanna Ulloa MD [address] [place], [place] [address] (Wo rk) documented as of this encounter Visit Diagnoses Not on filedocumented in this encounter Care Teams Rvda Master Certified Rv Technician Relationship Specialty Start Date End Date Md Garcia MD PCP - General 08/16/10 01/17/12 [place], [place] [id number] documented as of this encounter
--- OUTSIDE RECORDS SUMMARY | 2022-04-22 14:10 | XMS_ITS | Encounter Summary ---
:1965 Author Organization [facility] Address [address] [place] [address] Care Team Providers Name Role Phone Md GEOVANNY Garcia Primary Care Provider Encounter Details Date Type Department Care Team Description 08/30/2005 PN Conversion Only [address] [address] [place] [address] Social History Tobacco Use Types Packs/Day Years Used Date Smoking Tobacco: Never Assessed Sex Assigned at Date Recorded Not on file documented as of this encounter Plan of Treatment Upcoming Encounters Date Type Specialty Care Team Description 06/15/2022 Appointment Orthopedics Vanna Ulloa MD [address] [place], [place] [address] (Wo rk) documented as of this encounter Visit Diagnoses Not on filedocumented in this encounter Care Teams Helicopter Repairer Relationship Specialty Start Date End Date Md Garcia MD PCP - General 08/16/10 01/17/12 [place], [place] [address] documented as of this encounter
--- OUTSIDE RECORDS SUMMARY | 2022-04-22 14:10 | XMS_ITS | Encounter Summary ---
:1965 Author [facility] Address [address] [place] [address] Care Team Providers Name Role Phone Md GEOVANNY Garcia Primary Care Provider Encounter Details Date Type Department Care Team Description 12/02/2004 Office Visit [facility] Jelani Fish MD [address] [facility] . [address] [place] [address] [place] [address] [phone] (Wo rk) Social History Tobacco Use Types Packs/Day Years Used Date Smoking Tobacco: Never Assessed Sex Assigned at Date Recorded Not on file documented as of this encounter Last Filed Vital Signs Vital Sign Reading Time Taken Comments Blood Pressure 124/78 12/02/2004 11:15 AM CDT Pulse 78 12/02/2004 11:15 AM CDT Temperature - - Respiratory Rate - - Oxygen Saturation - - Inhaled Oxygen Concentration - - Weight 125.6 kg (276 lb 15.8 12/02/2004 11:15 AM C: 125 .6kg oz) CDT Height - - Body Mass Index - - documented in this encounter Progress Notes Jelani Fish MD - 12/02/2004 12:01 AM CDT Progress Notes signed by Jelani Fish MD at 12/25/04 0914 Author: Jelani Fish MD Service: (none) Author Type: Physician Filed: 09/04/10 0556 Note Time: 12/02/042022 Status: Signed Fire Fighting Equipment Specialist: Jelani Fish MD (Physician) NAME: MARCELO LUNA MR: [id number] ACCT: [id number] VISIT: [id number] DICTATING CLINICIAN: JELANI FISH MD JOB: [id number] CLINIC PROGRESS NOTE DATE OF VISIT: 12/02/2004 SUBJECTIVE: : 1965. Here for left knee pain. Getting progressively worse over the last six days. Notes no specific episode of injury. It did pop the day after onset. This did elicit a sharp pain. This occurred when she was bending down to clean her motorcycle. Pain is generally a 3 out of 10 with exacerbations. Denies any significant previous injuries to her left knee. She is taking no utxe-yah-efxkvla analgesics, has not been using any hot or cold therapies. MEDICATIONS: Reviewed and updated in LastWord. ADR/ALLERGIES: REVIEWED AND UPDATED IN LASTWORD. She smokes three-quarters of a pack a day. OBJECTIVE: VS: BP: 124/78. P: 78 and regular. Wt: 277 lb. She is a awake and alert, pleasant individual in no apparent distress. Ambulates with very mild limp on the left side. There is no visible erythema, no palpable effusion, no tenderness to compression or translation of the patella. No medial collateral ligament, mild lateral collateral ligament tenderness. No other joint line tenderness. No tenderness to palpation of the popliteal space. Varus strain with mild tenderness. Valgus strain nontender. Long and anterior drawer tests are negative. Posterior drawer test negative. Ruddy test is negative. ASSESSMENT: Mild lateral collateral ligament with possible meniscal injury. PLAN: Treat with relative rest, avoid hyperflexion of the knee, gentle range of motion exercises, cold compress, qvbj-rbp-nbkelhz analgesics. If failing to respond over the next one to two weeks, receive physical therapy for more intensive treatment. DWH:[id number] C: 12/03/04 12:44 DOCUMENT: [id number] documented in this encounter Plan of Treatment Upcoming Encounters Date Type Specialty Care Team Description 06/15/2022 Appointment Orthopedics Vanna Ulloa MD [address] [facility] [place] [address] (Wo rk) documented as of this encounter Visit Diagnoses Not on filedocumented in this encounter Care Teams Therapeutic Activities Services Worker Relationship Specialty Start Date End Date Md Garcia MD PCP - General 08/16/10 01/17/12 [place] [address] documented as of this encounter
--- OUTSIDE RECORDS SUMMARY | 2022-04-22 14:10 | XMS_ITS | Encounter Summary ---
:1965 Author Organization [facility] Address [address] [address] Care Team Providers Name Role Phone Md GEOVANNY Garcia Primary Care Provider Encounter Details Date Type Department Care Team Description 12/30/2004 Procedure Visit [facility] [address] Roge Denton MD Pulmonary Medicine [address] [facility] [address] [facility] [address] [place] [address] [phone] (Wo rk) Social History Tobacco Use Types Packs/Day Years Used Date Smoking Tobacco: Never Assessed Sex Assigned at Date Recorded Not on file documented as of this encounter Last Filed Vital Signs Vital Sign Reading Time Taken Comments Blood Pressure 140/78 12/30/2004 10:14 AM CDT Pulse 97 12/30/2004 10:14 AM CDT Temperature - - Respiratory Rate - - Oxygen Saturation 97% 12/30/2004 10:14 AM CDT Inhaled Oxygen Concentration - - Weight 124.3 kg (273 lb 15.8 12/30/2004 10:14 AM C: 124 .3kg oz) CDT Height - - Body Mass Index - - documented in this encounter Progress Notes Jorge Denton MD - 12/30/2004 12:01 AM CDT Progress Notes signed by Jorge Denton MD at 01/04/05 1322 Author: Jorge Denton MD Service: (none) Author Type: Physician Filed: 09/04/10 0626 Note Time: 12/30/04 0001 Status: Signed Tariff Inspector: Jorge Denton MD (Physician) NAME: MARCELO CROWLEY MR: [id number] ACCT: [id number] VISIT: [id number] DICTATING CLINICIAN: JORGE DENTON MD JOB: [id number] CLINIC PROGRESS NOTE DATE OF VISIT: 12/30/2004 SUBJECTIVE: Impression: Obstructive sleep apnea. Ms. Crowley is referred for evaluation of sleep-disordered breathing from Dr. Patrice Tony. The patient reports a chief complaint of snoring and excessive daytime hypersomnolence and observed apnea. Currently she goes to bed at 12-2 a.m., wakes up at 9-10 a.m. She has no problems with sleep onset or sleep maintenance. She has currently been on her CPAP. However, prior to her CPAP she feels like she had definite observed snoring and apneas. Her significant other has moved out of the bedroom because of her snoring. He has observed irregular breathing as has some family member and she can hear herself snoring on occasion. She has a few leg kicks just when falling asleep and no sleepwalking, talking or bruxism. She describes herself as sleepy and tired during the work day. She feels like it interferes with her work and levels of concentration. She does drink caffeinated products to stay awake. She has no symptoms of narcolepsy or cataplexy. Her [place] Sleepiness Scale prior to her sleep study was 11. She does have chronic runny nose, non-allergic rhinitis. She reports a history of anxiety and depression in the past. She has not had her tonsils out. She has had a 30-40 pound weight gain in the last several years. PAST MEDICAL HISTORY: Remarkable for: 1. Hypercholesterolemia. 2. Diabetes. 3. Non-allergic rhinitis. 4. GERD symptomatology. PERSONAL AND SOCIAL HISTORY: She has a significant other, is a cigarette smoker, does not drink alcohol. 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 She denies any accidents or tickets recently. FAMILY HISTORY: Unremarkable. OBJECTIVE: VS: BP: 140/70. P: 80. Wt: 274. O2 Sats: 97. A pleasant woman in no acute distress. HEENT: Shows TMs clear. Nasopharynx normal. Oropharynx shows narrowed oropharyngeal inlet and somewhat large tonsils for age. There is no thyromegaly or adenopathy. Neck is enlarged. CHEST: Clear to auscultation and percussion. CARDIAC: Shows a regular rate and rhythm without gallops, rubs or murmurs. ABDOMEN: Soft, nontender. Bowel sounds are intact. EXTREMITIES: Without cyanosis, clubbing, edema. LABORATORY EVALUATION: Includes a nocturnal polysomnogram dated 10/12/04. She had an RDI of 109/hour. She had nearly continuous apnea associated with gowqiqvs-mq-lejehx desaturations and very marked abnormal sleep architecture. She was titrated up to 7 cm of CPAP. She had no apneas at that time however, it was a short period of time. She apparently was on an AutoAdjust CPAP and with told it needed to be 15. She currently is using her CPAP several hours per night but is having problems with nares irritation. ASSESSMENT: 1. Non-allergic rhinitis. I will place her on a nasal steroid for this. She will take qyyl-zqm-zpkflil decongestants and use heated humidifier. 2. Nasal irritation. I sent her for a prescription for a regular nasal mask and she can switch back and forth and experiment with those. 3. Severe obstructive sleep apnea. The patient and I had a long discussion for counseling time regarding the severe nature of her obstructive sleep apnea and the fact that she gets almost no good quality sleep while she is untreated. I pointed out its cardiovascular risk factors and also risk factors related to her work as a business data analyst and told her that she should not drive when she is not able to use the CPAP. She should not drive if she is tired and if she is tired while she is driving she should stop and I have offered to write her employer to give them explicit instructions that she has obstructive sleep apnea and is not to drive if there is any question about whether her level of alertness is at risk. She understands the serious nature of this and I have told her that she has to be vigilant about using her CPAP all night, every night and also if she is unable to use it for a period of time such as during a URI, during nasal congestion, then she should not be driving and if she finds herself in a situation where she is tired she is empowered to pulling unit floorhand and stop and rest or get relief from other drivers. She understands the nature of this. With respect to the appropriate CPAP setting I suspect it is more like 7, the AutoAdjust probably was related to leaks and we had a lengthy discussion about how to manage her mask for leaks and we will place her on the AutoAdjust CPAP. I would like her to get up to 6 or 7 hours a night hopefully using her CPAP and we will review her ability to do that. We also discussed cardiovascular risk factors and she had many questions regarding the different options of treating her CPAP which we went over in detail for counseling time. 4. Followup is in 1 month with AutoAdjust download and to review response to nasal treatment. Total time 80 minutes. Counseling time 60. PLAN: See assessment. CC: PATRICE TONY MD KRH:[id number] C: 12/31/04 10:55 DOCUMENT: [id number] documented in this encounter Plan of Treatment Upcoming Encounters Date Type Specialty Care Team Description 06/15/2022 Appointment Orthopedics Vanna Ulloa MD [address] [place], [place] [address] (Wo rk) documented as of this encounter Visit Diagnoses Not on filedocumented in this encounter Care Teams Campus Director Relationship Specialty Start Date End Date Md Garcia MD PCP - General 08/16/10 01/17/12 [place] [address] documented as of this encounter
--- OUTSIDE RECORDS SUMMARY | 2022-04-22 14:11 | XMS_ITS | Encounter Summary ---
:1965 Author Organization [facility] Address [address] [place] [address] Care Team Providers Name Role Phone Md GEOVANNY Garcia Primary Care Provider Encounter Details Date Type Department Care Team Description 04/25/2003 PN Conversion Only DENOMINATIONAL CONVERSION Abdoul Tony MD [address] [place], [place] [address] (Wo rk) Social History Tobacco Use Types Packs/Day Years Used Date Smoking Tobacco: Never Assessed Sex Assigned at Date Recorded Not on file documented as of this encounter Plan of Treatment Upcoming Encounters Date Type Specialty Care Team Description 06/15/2022 Appointment Orthopedics Vanna Ulloa MD [address] [place], [place] [address] (Wo rk) documented as of this encounter Procedures Procedure Name Priority Date/Time Associated Comments Diagnosis ANATOMICAL PATH Routine 04/25/2003 7:55 AM Result s for this LIQUID BASED CARDROOM HAND procedure are i n the results section. documented in this encounter Results Pap Smear (04/25/2003 7:55 AM CARDROOM HAND) [facility] Method Time Signature PAP Smear SEE TEXT No normal HP CONVERSION Liquid Based range Comment: Patient: LIZ LUNA ? CERVICAL CYTOLOGY REPORT Pathology # ??[id number] ?Date Obtained: ? Date Received: CYTOLOGIC IMPRESSION: High grade squamous epithelial lesion (H KEILA), encompassing moderate dysplasia, severe dysplasia, and squamou s carcinoma in situ. ? KETURAH TIONAL DATA LMP: ?03-22-03 CLINICAL HIST ? PREV NORM 12-27-00, C C01 00196 LIQUID BASED PAP CERVICAL SPECIMEN ADEQUACY: ?? Satisfactory. ENDOCERVICAL CELLS: ??Present. Verified 05/01/03 by: ??Herrera Lew M.D. ? (electronic signature) Specimen (Source) Anatomical Collection Method Collection Time Re ceived Time Location / / Volume Laterality 04/25/2003 7:55 AM CARDROOM HAND Mian Tony MD LAB_1 Performing Organization Address City/State/ZIP Code Phon e Number HP CONVERSION documented in this encounter Visit Diagnoses Not on filedocumented in this encounter Care Teams Card Sorter Relationship Specialty Start Date End Date Md Garcia MD PCP - General 08/16/10 01/17/12 [place] [address] documented as of this encounter
--- OUTSIDE RECORDS SUMMARY | 2022-04-22 14:11 | XMS_ITS | Encounter Summary ---
:1965 Author Organization [facility] Address [address], [place] [address] Care Team Providers Name Role Phone Md GEOVANNY Garcia Primary Care Provider Encounter Details Date Type Department Care Team Description 05/21/2003 PN Conversion Only AFOGNAK CONVERSION Manan Ahumada, [address] [facility] [place] [address] [address] [facility] [address] [place], [place] [address] (Wo rk) Social History Tobacco Use Types Packs/Day Years Used Date Smoking Tobacco: Never Assessed Sex Assigned at Date Recorded Not on file documented as of this encounter Plan of Treatment Upcoming Encounters Date Type Specialty Care Team Description 06/15/2022 Appointment Orthopedics Vanna Ulloa MD [address] [place], [place] [address] (Wo rk) documented as of this encounter Procedures Procedure Name Priority Date/Time Associated Diagnosis Comme nts SURGICAL LATOSHA YOUNGBLOOD Routine 05/21/2003 2:56 PM Re jay jayts for this NICOLLET RESEARCH HOME ECONOMIST procedure are i n the results section. documented in this encounter Results Pathology Report (05/21/2003 2:56 PM RESEARCH HOME ECONOMIST) [facility] Method Time Signature Surgical SEE TEXT No normal HP CONVERSION Pathology range Comment: Patient: MARCELO LUNA ?S URGICAL PATHOLOGY REPORT Pathology # ??[id number] ?Date Obtained: ? Date Received: DIAGNOSIS: ?Endocervical curettage: ?1. ??Endocervical glandular epithe lial atypia (suspicious for high-grade ?squamous epithelial dysplasi a/CIS and/or high-grade glandular ?dysplasia/in situ adenocarci noma of the endocervix. ?2. ??Benign squamous metaplasia of the endocervical mucosa. ?3. ??Microglandular hyperplasia of the endocervical mucosa. ?4. ??Mild to moderate acute and ch ronic cervicitis. COMMENT: ?On April 25, 2003, the patient had an abnormal liquid-based cervical ?cytology study ([id number]), which showed cytopathologic alterations ?suggestive of a high-grade squamou s intraepithelial lesion. ??As noted ?above, the present endocervical cu rettings show endocervical glandular ?epithelial atypia, which is suspic ious for severe squamous epithelial ?dysplasia/CIS and/or endocervical glandular dysplasia/in situ ?adenocarcinoma of the endocervix. ??In order to further elucidate the ?nature of the pathology involving the endocervix, I would recommend a cone ?resection of the uterine cervix. ?Sole Germain M.D. ?(electronic signature) ENM/ENM/kmr Date of Report: 05/23/03 Pathology # ??[id number] ?Date Obtained: ? Date Received: ORGAN/TISSUE SITE: ?Endocervical curettings GROSS DESCRIPTION: ?The specimen is designated endoce rvical curettage. It consists of ?multiple minute to small fragments of soft tissue with associated mucoid ?material. Altogether, the fragment s of soft tissue measure much less than ?0.1 ml in volume. ?The entire specimen is filtered an d submitted for microscopic examination. ENM/blm Specimen (Source) Anatomical Collection Method Collection Time Re ceived Time Location / / Volume Laterality 05/21/2003 2:56 PM RESEARCH HOME ECONOMIST Manan Ahumada MD LAB_1 Performing Organization Address City/State/ZIP Code Phon e Number HP CONVERSION documented in this encounter Visit Diagnoses Not on filedocumented in this encounter Care Teams Shank Tapper Relationship Specialty Start Date End Date Md Garcia MD PCP - General 08/16/10 01/17/12 [place] [address] documented as of this encounter
--- OUTSIDE RECORDS SUMMARY | 2022-04-22 14:11 | XMS_ITS | Encounter Summary ---
:1965 Author Organization [facility] Address [address] [place] [address] Care Team Providers Name Role Phone Md GEOVANNY Garcia Primary Care Provider Encounter Details Date Type Department Care Team Description 11/20/2003 Office Visit [facility] [address] Kee Ahumada MD Obstetrics/Gynecolog y [address] [facility] [address] [facility] [address] [place] [address] [place] [address] [phone] (Wo rk) Social History Tobacco Use Types Packs/Day Years Used Date Smoking Tobacco: Never Assessed Sex Assigned at Date Recorded Not on file documented as of this encounter Progress Notes Kee Ahumada MD - 11/20/2003 12:01 AM CDT Progress Notes signed by Kee Ahumada MD at 11/20/03 1632 Author: Kee Ahumada MD Service: (none) Author Type: Physician Filed: 09/03/10 2308 Note Time: 11/20/03 0001 Status: Signed Full Service Vending Driver: Kee Ahumada MD (Physician) NAME: MARCELO LUNA MR: [id number] ACCT: [id number] VISIT: [id number] DICTATING CLINICIAN: KEE AHUMADA MD JOB: [id number] CLINIC PROGRESS NOTE DATE OF VISIT: 11/20/2003 SUBJECTIVE: The patient is a 38-year-old, para 3-0-2-3, LMP 11/09, here today for a repeat Pap smear. We did a cone biopsy in May, which showed AJ-1 to 2. She has not had any further followup yet. She has no complaints at this time. OBJECTIVE: VS: BP: 130/80. Wt: 278 lb. Exam was performed with the nurse present in the room. The external genitalia, urethra, and vagina were without lesions. The cervix has an appearance consistent with prior cone biopsy. Pap smear was obtained. ASSESSMENT: Cervical dysplasia status post cone biopsy. PLAN: Will notify patient of Pap-smear results when available. If it is normal, I would have her return in another three to four months for her next Pap smear. FINAL IMPRESSION: Cervical dysplasia. DAD:[id number] C: 11/20/03 16:19 DOCUMENT: [id number] documented in this encounter Plan of Treatment Upcoming Encounters Date Type Specialty Care Team Description 06/15/2022 Appointment Orthopedics Vanna Ulloa MD [address] [facility] [place], [place] [address] (Wo rk) documented as of this encounter Visit Diagnoses Not on filedocumented in this encounter Care Teams Major Gifts Director Relationship Specialty Start Date End Date Md Garcia MD PCP - General 08/16/10 01/17/12 [place] [address] documented as of this encounter
--- OUTSIDE RECORDS SUMMARY | 2022-04-22 14:11 | XMS_ITS | Encounter Summary ---
:1965 [facility] Address [address] [place] [address] Care Team Providers Name Role Phone Md GEOVANNY Garcia Primary Care Provider Encounter Details Date Type Department Care Team Description 06/12/2003 PN Conversion Only KLETSEL DEHE WINTUN CONVERSION Mian Tony MD [address] [facility] [address] [place] [address] [place], [place] [address] (Wo rk) Social History Tobacco Use Types Packs/Day Years Used Date Smoking Tobacco: Never Assessed Sex Assigned at Date Recorded Not on file documented as of this encounter Plan of Treatment Upcoming Encounters Date Type Specialty Care Team Description 06/15/2022 Appointment Orthopedics Vanna Ulloa MD [address] [place], [place] [address] (Wo rk) documented as of this encounter Procedures Procedure Name Priority Date/Time Associated Diagnosis Comme nts LIPID PANEL AND Routine 06/12/2003 11:17 AM Resul ts for this DIRECT LDL(IF ELECTRONIC GLUER procedure are in NEEDED) the results section. documented in this encounter Results (ABNORMAL) Lipid Panel and Direct LDL(If Needed) (06/12/2003 11:17 AM ELECTRONIC GLUER) [facility] Method Time Signature Length Of Fast 12.0 Hours HP CONVERSION Cholesterol/HDL 7.5 No normal HP CONVERSION Ratio Screen range Cholesterol 194 125 - 199 HP CONVERSION mg/dL HDL Cholesterol 26 (L) 40 - 60 HP CONVERSION mg/dL Triglycerides 392 (H) 0 - 199 HP CONVERSION mg/dL LDL Calculated 90 66 - 129 HP CONVERSION mg/dL Comment: Specimen (Source) Anatomical Collection Method Collection Time Re ceived Time Location / / Volume Laterality 06/12/2003 11:17 AM ELECTRONIC GLUER Mian Tony MD LAB_1 Performing Organization Address City/State/ZIP Code Phon e Number HP CONVERSION documented in this encounter Visit Diagnoses Not on filedocumented in this encounter Care Teams Web Merchandiser Relationship Specialty Start Date End Date Md Jose, PCP - General 08/16/10 01/17/12 [place] [address] documented as of this encounter
--- OUTSIDE RECORDS SUMMARY | 2022-04-22 14:11 | XMS_ITS | Encounter Summary ---
:1965 Author Organization [facility] Address [address] [place] [address] Care Team Providers Name Role Phone Md GEOVANNY Garcia Primary Care Provider Encounter Details Date Type Department Care Team Description 04/25/2003 PN Conversion Only Patrice Waterman MD [facility] [address] [facility] 14[address] [facility] [place] [address] [place], [place] [id number] [phone] Social History Tobacco Use Types Packs/Day Years Used Date Smoking Tobacco: Never Assessed Sex Assigned at Date Recorded Not on file documented as of this encounter Progress Notes Patrice Tony MD - 04/25/2003 12:01 AM CST H&P signed by Patrice Tony MD at 05/06/03 0804 Author: Patrice Tony MD Service: (none) Author Type: Physician Filed: 09/03/10 1725 Note Time: 04/25/032022 Status: Signed Ged Preparation Teacher: Patrice Tony MD (Physician) CHIEF COMPLAINT: WELL/PHYSICAL 18-39 YEARS PROVIDER NOTE: [facility] Preventive Exam & Pelvic IMPRESSION: Routine preventive exam. Healthy female. Smoking. Reflux. SUBJECTIVE: 37 y/o female present for a routine preventive physical and pelvic exam. 37 y/o female present for routine preventive pelvic exam. Past Medical History: Total pregnancies: 5 Term pregnancies: 3 Premature pregnancies: 0 Spontaneous abortions: 2 Living children: 3 C-Sections: 0 Abnormal Pap on: 05/06/2003 Abnormal Pap: ASCUS mild hyperlipidemia Other Medical/Surgical History: Reflux. Adverse Drug Reactions: None Current medications: zantac 150 mg bid Family History (First degree family members): ASCVD Diabetes Mellitus Social History: Employed Monogomous relationship Habits Smokin pack per day Alcohol less than once monthly Preventive Health Assessment: Exercise inadequate Safe in relationship Review of Systems: With the exception of any items noted above, the remainder of complete ROS is negative OBJECTIVE: Pulse: 88 Blood Pressure: 128/88 Weight: 273 lbs. General: Patient alert, in NAD. HEENT: PERRLA Bilateral TM's, external 8canals, orophaynx normal. Neck: Supple, without thyromegaly or mass. CV: 9RRR without murmurs, rubs or gallops. Resp: Clear to auscultation without :crackles, wheezes or distress. Abdomen: Soft, non-tender, without ;hepatosplenomegaly, masses, or hernias. Breasts: Nontender, without masses, <nipple discharge, erythema, or axillary adenopathy. Pelvic: Normal external genitalia and urethra. [place], moist vaginal and cervical mucosa, without lesions. On bimanual exam, uterus is mobile, normal size, shape & ?consistency, with no uterine or adenexal masses appreciated. Extremities: @No edema. Skin: No lesions. ASSESSMENT: Routine preventive exam. Healthy female. Smoking. Reflux. PLAN: Follow-up in 1 year Pap smear Cholesterol (Lipid) panel We will mail lab results to patient Discussed & recommended a balanced nutritious diet Shorthand Note completed on: 05/06/2003 8:05 AM HES DESIGNER Patrice Tony MD - 04/19/2003 12:01 AM CST Progress Notes signed by Patrice Tony MD at 04/22/03 1629 Author: Patrice Tony MD Service: (none) Author Type: Physician Filed: 09/03/10 1718 Note Time: 04/19/03 0001 Status: Signed Ged Preparation Teacher: Patrice Tony MD (Physician) NAME: MARECLO LUNA MR: [id number] ACCT: [id number] VISIT: [id number] DICTATING CLINICIAN: PATRICE TONY MD JOB: [id number] CLINIC PROGRESS NOTE DATE OF VISIT: 04/19/2003 SUBJECTIVE: : 1965. This patient comes in with a complaint of worsening heartburn for the last week. She occasionally has had acid burning sensation in the past, would take Rolaids and it helped. Last week she had been getting it bad with addition of sensation of stuff coming up towards the throat. She had taken some jfbd-ybw-wzgvmvo Zantac which helped some but does not clear it up. She has not had any dysphagia, no unexplained weight loss, no fevers or chills. Otherwise healthy. CURRENT MEDICATIONS: DayQuil. No NSAID use. ADR/ALLERGIES: NONE. HABITS: Does smoke 3/4 to nmn-bemh-ska-day of cigarettes. Caffeine 2 per day, alcohol rare. OBJECTIVE: VS: BP: 132/96. P: 80. Wt: 278 lb. Alert and oriented x 3 female sitting up breathing easily. Oropharynx is clear. NECK: Supple. Thyroid normal. LUNGS: Clear. CARDIOVASCULAR: Regular rate and rhythm, S1, S2. ABDOMEN: Soft and nontender. ASSESSMENT: Gastroesophageal reflux disease. PLAN: We will start ranitidine 150 mg b.i.d. Discussed antireflux measures. Follow up if not improving. TT: CT: [id number] C: 04/20/03 15:10 DOCUMENT: [id number] HES DESIGNER documented in this encounter Plan of Treatment Upcoming Encounters Date Type Specialty Care Team Description 06/15/2022 Appointment Orthopedics Vanna Ulloa MD [address] [facility] [place] [address] (Wo rk) documented as of this encounter Visit Diagnoses Not on filedocumented in this encounter Care Teams Gun Examiner Relationship Specialty Start Date End Date Md Garcia MD PCP - General 08/16/10 01/17/12 [place] [address] documented as of this encounter
--- OUTSIDE RECORDS SUMMARY | 2022-04-22 14:11 | XMS_ITS | Encounter Summary ---
:1965 Author Organization [facility] Address [address] [place] [address] Care Team Providers Name Role Phone Md GEOVANNY Garcia Primary Care Provider Encounter Details Date Type Department Care Team Description 11/22/2002 PN Conversion Only Patrice Waterman MD Medicine 1415 [facility] 1415 [facility] [place] [address] [place] [address] [phone] Social History Tobacco Use Types Packs/Day Years Used Date Smoking Tobacco: Never Assessed Sex Assigned at Date Recorded Not on file documented as of this encounter Progress Notes Candice Harrington MD - 06/22/2003 12:01 AM CST Phone Note signed by Candice Harrington MD at 06/25/03 0720 Author: Candice Harrington MD Service: (none) Author Type: Physician Filed: 11/22/02 0000 Note Time: 06/22/03 0001 Status: Signed Certified Credit Counselor: Candice Harrington MD (Physician) NAME: MARCELO LUNA MR: ACCT: VISIT: DICTATING CLINICIAN: CANDICE HARRINGTON MD JOB: [id number] CLINIC PHONE CALL DATE OF PHONE CALL: 06/22/03. : 1965. Marcelo states she had a cold knife cone done in the operating room a week and a half ago on Tuesday. She states she had bleeding a couple days after that, and then it stopped. Today she has noticed some spotting mostly just with wiping. She states she is not due for a period for at least another week. I encouraged her to have some decreased activity today and no snowmobiling. She is encouraged to call if she starts bleeding heavier and soaking a pad an hour or is more concerning. I did inform her she may have an earlier period just due to having surgery. That sometimes makes people's cycles irregular. She is encouraged to call if she has any further questions or concerns. 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 See form for full details. OBJECTIVE: ASSESSMENT: DOT physical. PLAN: Patient clear to drive without restriction. TT: CT: [id number] C: 11/22/02 13:39 DOCUMENT: [id number] documented in this encounter Plan of Treatment Upcoming Encounters Date Type Specialty Care Team Description 06/15/2022 Appointment Orthopedics Vanna Ulloa MD [address] [place] [address] (Wo rk) documented as of this encounter Visit Diagnoses Not on filedocumented in this encounter Care Teams Refinery Operator Assistant Relationship Specialty Start Date End Date Md Garcia MD PCP - General 08/16/10 01/17/12 [place] [address] documented as of this encounter
--- OUTSIDE RECORDS SUMMARY | 2022-04-22 14:11 | XMS_ITS | Encounter Summary ---
:1965 Author Organization [facility] Address [address] [place] [address] Care Team Providers Name Role Phone Unassigned, Provider Primary Care Provider Unavailable Encounter Details Date Type Department Care Team Description 02/16/2002 Hospital Encounter Sikhism Nuclear Stijuvenal, Chilo roth H, DPM [facility] [address] [facility] [address] [facility] [place] [address] [phone] (Wo rk) Social History Tobacco Use Types Packs/Day Years Used Date Smoking Tobacco: Never Assessed Sex Assigned at Date Recorded Not on file documented as of this encounter Plan of Treatment Upcoming Encounters Date Type Specialty Care Team Description 06/15/2022 Appointment Orthopedics Vanna Ulloa MD [address] [place], [place] [address] (Wo rk) documented as of this encounter Procedures Procedure Name Priority Date/Time Associated Diagnosis Comme nts N/O NM BONE SCAN Routine 02/16/2002 10:00 AM Resu lts for this LIMITED EXTREMITY CDT procedure are in AND SKULL the results section. documented in this encounter Results N/O NM Bone Scan Limited Extremity And Skull (02/16/2002 10:00 AM CDT) Anatomical Region Laterality Modality Skeletal, Head Other Specimen (Source) Anatomical Location Collection Method / Collectio n Time Received Time / Laterality Volume Impressions 02/16/2002 10:00 AM CDT : ??1. ?? There is uptake in the left fir st metatarsophalangeal ? joint suggest arthritis. ??2. ?? There are small areas of focal uptake in the left foot ? in the tarsal regions which ar e relatively symmetric to the ? right foot. ??3. ?? No other areas of abnormal upta ke are seen. Lak C: 02/16/02 8:38:04 PM Narrative 02/16/2002 10:00 AM CDT CLINICAL DATA: ??Painful left foot. The patient was injected with 25.9 mCi o f Tc99m MDP. Anterior and posterior views of both fee t were obtained and then a lateral view of the left foot was obtained. Exam is correlated with prior radiograph s of the foot 11/24/01. There is some uptake within the left fir st metatarsophalangeal joint. There also ar e some small foci of uptake in the metatarsal tarsal and inte rtarsal areas which are similar to the right foot. There are no larger areas of abnormal bone uptake in either foot. Procedure Note Travis Fernandes DPM - 07/19/2016Formatt ing of this note might be different from the original. CLINICAL DATA: Painful left foot. The patient was injected with 25.9 mCi o f Tc99m MDP. Anterior and posterior views of both fee t were obtained and then a lateral view of the left foot was obtained. Exam is correlated with prior radiograph s of the foot 11/24/01. There is some uptake within the left fir st metatarsophalangeal joint. There also ar e some small foci of uptake in the metatarsal tarsal and inte rtarsal areas which are similar to the right foot. There are no larger areas of abnormal bone uptake in either foot. IMPRESSION : 1. There is uptake in the left first me tatarsophalangeal joint suggest arthritis. 2. There are small areas of focal uptak e in the left foot in the tarsal regions which are relativ rosa symmetric to the right foot. 3. No other areas of abnormal uptake ar e seen. Neelima C: 02/16/02 8:38:04 PM Travis H Stibal DPM RAD NM documented in this encounter Visit Diagnoses Not on filedocumented in this encounter Care Teams Artists' Model Relationship Specialty Start Date End Date Unassigned, Provider PCP - General 02/17/00 01/08/07 [address] [place] [address] documented as of this encounter
--- OUTSIDE RECORDS SUMMARY | 2022-04-22 14:11 | XMS_ITS | Encounter Summary ---
:1965 Author Organization [facility] Address [address] [place] [address] Care Team Providers Name Role Phone Md GEOVANNY Garcia Primary Care Provider Encounter Details Date Type Department Care Team Description 03/25/2003 PN Conversion Only PRIOR DOUGLAS CONVERSIO N [address] [facility] [place] [address] Social History Tobacco Use Types Packs/Day Years Used Date Smoking Tobacco: Never Assessed Sex Assigned at Date Recorded Not on file documented as of this encounter Plan of Treatment Upcoming Encounters Date Type Specialty Care Team Description 06/15/2022 Appointment Orthopedics Vanna Ulloa MD [address] [place], [place] [phone] (Wo rk) documented as of this encounter Visit Diagnoses Not on filedocumented in this encounter Care Teams Wheel Molder Relationship Specialty Start Date End Date Md Garcia MD PCP - General 08/16/10 01/17/12 [place], [place] [id number] documented as of this encounter
--- OUTSIDE RECORDS SUMMARY | 2022-04-22 14:11 | XMS_ITS | Encounter Summary ---
:1965 Author Organization [facility] Address [address] [address] Care Team Providers Name Role Phone Md GEOVANNY Garcia Primary Care Provider Encounter Details Date Type Department Care Team Description 11/20/2003 PN Conversion Only [place] CONVERSION Manan Ahumada, [address] [facility] [place] [address] [address] [facility] [address] [place], [place] [address] (Wo rk) Social History Tobacco Use Types Packs/Day Years Used Date Smoking Tobacco: Never Assessed Sex Assigned at Date Recorded Not on file documented as of this encounter Plan of Treatment Upcoming Encounters Date Type Specialty Care Team Description 06/15/2022 Appointment Orthopedics Vanna Ulloa MD [address] [place], [place] [address] (Wo rk) documented as of this encounter Procedures Procedure Name Priority Date/Time Associated Comments Diagnosis ANATOMICAL PATH Routine 11/20/2003 1:54 PM Result s for this LIQUID BASED CDT procedure are i n the results section. documented in this encounter Results Pap Smear (11/20/2003 1:54 PM CDT) [facility] Method Time Signature PAP Smear SEE TEXT No normal HP CONVERSION Liquid Based range Comment: Patient: MARCELO LUNA ? CERVICAL CYTOLOGY REPORT Pathology # ??[id number] ?Date Obtained: ? Date Received: CYTOLOGIC IMPRESSION: Negative for intraepithelial lesion or m alignancy. ? KETURAH TIONAL DATA LMP: ?11-10-03 CLINICAL HIST ? PREV ABNL 04-25-03,A [id number] CONE BX 05-19 LIQUID BASED PAP CERVICAL SPECIMEN ADEQUACY: ?? Satisfactory. ENDOCERVICAL CELLS: ??Present. Verified 12/02/03 by: ??Elizabeth Martin ?(electronic signature) Specimen (Source) Anatomical Collection Method Collection Time Re ceived Time Location / / Volume Laterality 11/20/2003 1:54 PM CDT Manan Ahumada MD LAB_1 Performing Organization Address City/State/ZIP Code Phon e Number HP CONVERSION documented in this encounter Visit Diagnoses Not on filedocumented in this encounter Care Teams Ferris Wheel Attendant Relationship Specialty Start Date End Date Md Garica MD PCP - General 08/16/10 01/17/12 [place], [place] [id number] documented as of this encounter
--- OUTSIDE RECORDS SUMMARY | 2022-04-22 14:11 | XMS_ITS | Encounter Summary ---
:1965 Author Organization [facility] Address [address] [place] [address] Care Team Providers Name Role Phone Md GEOVANNY Garcia Primary Care Provider Encounter Details Date Type Department Care Team Description 11/22/2002 PN Conversion Only [place] CONVERSION Mian Tony MD [address] [facility] [address] [place] [address] [place], [place] [address] (Wo rk) Social History Tobacco Use Types Packs/Day Years Used Date Smoking Tobacco: Never Assessed Sex Assigned at Date Recorded Not on file documented as of this encounter Plan of Treatment Upcoming Encounters Date Type Specialty Care Team Description 06/15/2022 Appointment Orthopedics Vanna Ulloa MD [address] [place], [place] [address] (Wo rk) documented as of this encounter Procedures Procedure Name Priority Date/Time Associated Diagnosis Comme nts [place] DOT UA DIP Routine 11/22/2002 1:08 PM Result s for this CDT procedure are i n the results section. documented in this encounter Results [facility] Dot Ua Dip (11/22/2002 1:08 PM CDT) [facility] gist Method Time Signature Urine Glucose Negative Negative HP CONVERSION Urine Protein Negative Neg-Trac HP CONVERSION Urine Specific 1.025 1.005 - 25 HP CONVERSION [place] Blood Urine Negative Negative HP CONVERSION Specimen (Source) Anatomical Collection Method Collection Time Re ceived Time Location / / Volume Laterality 11/22/2002 1:08 PM CDT Mian Tony MD LAB_1 Performing Organization Address City/State/ZIP Code Phon e Number HP CONVERSION documented in this encounter Visit Diagnoses Not on filedocumented in this encounter Care Teams Critical Care Physician Relationship Specialty Start Date End Date Md Jose, PCP - General 08/16/10 01/17/12 [place] [address] documented as of this encounter
--- OUTSIDE RECORDS SUMMARY | 2022-04-22 14:11 | XMS_ITS | Encounter Summary ---
:1965 Author Organization [facility] Address [address], [place] [address] Care Team Providers Name Role Phone Md GEOVANNY Garcia Primary Care Provider Encounter Details Date Type Department Care Team Description 01/30/1997 PN Conversion Only [place] CONVERSION Shad Remy [address] [place], [place] [address] Social History Tobacco Use Types Packs/Day Years Used Date Smoking Tobacco: Never Assessed Sex Assigned at Date Recorded Not on file documented as of this encounter Plan of Treatment Upcoming Encounters Date Type Specialty Care Team Description 06/15/2022 Appointment Orthopedics Vanna Ulloa MD [address] [place], [place] [address] (Wo rk) documented as of this encounter Procedures Procedure Name Priority Date/Time Associated Comments Diagnosis CONVERSION DEFAULT Routine 01/21/1997 6:58 AM Res ults for this INTERFACE ORDER CDT procedure ar e in the results section. documented in this encounter Results Conversion Default Interface Order (01/21/1997 6:58 AM CDT) P athologist Signature PAP Smear See Detail HP CONVERSION Comment: Patient: MARCELO LUNA ?CERVICAL CYTOLOGY REPORT Pathology # ??[id number] ?Date Obtained: [id number] ?Date Received: [id number] LMP: CLINICAL HIST CERVICAL SMEAR SPECIMEN ADEQUACY: ?? Satisfactory. ENDOCERVICAL CELLS: ??Present. CYTOLOGIC IMPRESSION: INCONCLUSIVE SMEAR. ATYPICAL SQUAMOUS CELLS OF UNCERTAIN SI GNIFICANCE, FAVOR MILD DYSPLASIA. Verified 02/08/97 by: ??Silvana Hernandez M.D. ?(electronic signature) Specimen (Source) Anatomical Collection Method Collection Time Re ceived Time Location / / Volume Laterality 01/21/1997 6:58 AM CDT Elly Sylvester APRN, DIRECTOR OF QUALITY CONTROL LAB_1 Performing Organization Address City/State/ZIP Code Phon e Number HP CONVERSION documented in this encounter Visit Diagnoses Not on filedocumented in this encounter Care Teams Implementation Specialist Relationship Specialty Start Date End Date Md Garcia MD PCP - General 08/16/10 01/17/12 [place] [address] documented as of this encounter
--- OUTSIDE RECORDS SUMMARY | 2022-04-22 14:11 | XMS_ITS | Encounter Summary ---
:1965 Author Organization [facility] Address [address] [place] [address] Care Team Providers Name Role Phone Md GEOVANNY Garcia Primary Care Provider Encounter Details Date Type Department Care Team Description 05/14/2003 PN Conversion Only PRIOR KASBEER CONVERSIO N [address] [facility] [place] [address] Social History Tobacco Use Types Packs/Day Years Used Date Smoking Tobacco: Never Assessed Sex Assigned at Date Recorded Not on file documented as of this encounter Plan of Treatment Upcoming Encounters Date Type Specialty Care Team Description 06/15/2022 Appointment Orthopedics Vanna Ulloa MD [address] [place], [place] [address] (Wo rk) documented as of this encounter Visit Diagnoses Not on filedocumented in this encounter Care Teams Roller Man Relationship Specialty Start Date End Date Md Garcia MD PCP - General 08/16/10 01/17/12 [place], [place] [id number] documented as of this encounter
--- OUTSIDE RECORDS SUMMARY | 2022-04-22 14:11 | XMS_ITS | Encounter Summary ---
:1965 [facility] Address [address] [place] [address] Care Team Providers Name Role Phone Md GEOVANNY Garcia Primary Care Provider Encounter Details Date Type Department Care Team Description 02/22/2002 PN Conversion Only [facility] Travis Fernandes DPM [id number] [place] [address] [id number] (Wo rk) Social History Tobacco Use Types Packs/Day Years Used Date Smoking Tobacco: Never Assessed Sex Assigned at Date Recorded Not on file documented as of this encounter Progress Notes Travis Fernandes DPM - 02/22/2002 12:01 AM CDT Progress Notes signed by Travis Fernandes DPM at 03/01/02 1541 Author: Travis Fernandes DPM Service: (none) Author Type: Physician Filed: 09/03/10 0930 Note Time: 02/22/022333 Status: Signed Almond Pan Finisher: Travis Fernandes DPM (Physician) IMPRESSION: Contusion versus sprain left foot. SUBJECTIVE: CHIEF COMPLAINT: Patient returns to clinic for followup of bone scan results. States that the pain seems to be diminishing. She denies any other complaints. States that previous LowDye strapping was of significant benefit for her. She denies any new concerns. OBJECTIVE: Continues to have some tenderness noted with forced inversion at the level of calcaneal cuboid, but this is significantly less compared to last time. There is no erythema, edema, ulceration or open wounds noted. Manual muscle testing exam is 5/5 for dorsiflexors, plantarflexors, inverters and everters bilateral feet and ankles. Bone scan results were reviewed which were negative in this area. ASSESSMENT: Contusion versus sprain left foot. PLAN: Discussed treatment options and alternatives with patient. She was agreeable to undergo casting for the functional orthotics which was performed today. She will be contacted when those are ready to be dispensed and follow up with me in two to three weeks after their use if any problems persist. TT: CT: [facility]:[id number] C: DOCUMENT: [id number] Travis Fernandes DPM - 02/08/2002 12:01 AM CDT Progress Notes signed by Travis Fernandes DPM at 02/21/02 1541 Author: Travis Fernandes DPM Service: (none) Author Type: Physician Filed: 09/03/10 0910 Note Time: 02/08/02 0001 Status: Signed Almond Pan Finisher: Travis Fernandes DPM (Physician) IMPRESSION: Contusion versus sprain, left foot. SUBJECTIVE: Patient presents to clinic with complaint of a painful left foot. Approximately November 05, 2001, she was stepping down from her house into her garage and felt a crack in her foot. She had some discomfort to the area originally but over the next several hours she had exquisite pain to the area. She presented to emergency room for evaluation. States that pain gradually resolved but then on 01/05/02 she was coming down a step in a gymnasium and twisted and cracked it again. Pain became exquisite and has not been resolved since. She feels that there is some swelling as well as tenderness across the top portion of the midfoot that she indicates. Denies any open wounds or ulcerations. This pain is with any type of weightbearing and occasionally even with nonweightbearing. No other complaints. No medications. ADR/ALLERGIES: NO KNOWN DRUG ALLERGIES. OBJECTIVE: A 36-year-old female, no acute distress. Pedal pulses are palpable bilaterally. Distal neurologic sensation is grossly intact bilaterally. Range of motion of ankle, rearfoot, midfoot, and forefoot appears to be within normal limits without pain or crepitation. However, there is tenderness noted with forced inversion at the level of the calcaneal cuboid laterally on the left foot and with forced plantar flexion on the dorsal aspect of the second metatarsocuneiform joint. These areas are also tender to direct palpation. There is a small amount of edema at both sites. No pain with medial to lateral compression of calcaneus nor with deep palpation, percussion of the TP nerve bilaterally. There is, however, tenderness noted with deep palpation plantar lateral aspect of the calcaneal cuboid and second metatarsophalangeal joint on the dorsal aspect. ASSESSMENT: Contusion versus sprain, left foot. PLAN: Discussed treatment options and alternatives with the patient. She may benefit somewhat from some supportive taping which is applied today to this foot. She will wear this for three to five days, if no improvement she will follow through with a bone scan which was scheduled for her today. She will then see me back in one to two weeks for further evaluation. I am concerned about the possibility of a Lisfranc injury to this site. We will reevaluate after the bone scan is obtained. TT: CT: [facility]:[id number] C: DOCUMENT: [id number] ANAT Vida Epperson MD - 01/24/2002 12:01 AM CDT Progress Notes signed by at 07/07/02 0001 Author: Vida Epperson MD Service: (none) Author Type: Physician Filed: 09/03/10 0849 Note Time: 01/24/02 0001 Status: Signed Almond Pan Finisher: Vida Epperson MD (Physician) IMPRESSION: Left foot pain. SUBJECTIVE: A 36-year-old female coming in followup of her ankle injury. Says that she still has left foot pain, however, now it is different. In review, back in early December she twisted her ankle. Did well with the restrictions given, but then on the , retwisted her ankle. 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 This is now where her pain restarted. She says that she drives a stick shift, and was pushing the clutch about 200 times a day. Will notice a lot of pain at the end of the day to the point where she can almost not walk. The pain is primarily on the lateral aspect of her top foot with pain into the Achilles. She said it hurts primarily when she puts any weight on it. She has been trying to elevate. OBJECTIVE: VS: BP: 104/76. Ht: 5 ft 6-05/17 in. Wt: 280 lb. She is alert, pleasant, and in no acute distress. She has tenderness with palpation over the lateral tarsal bones, but no medial malleolar, lateral malleolar, Achilles, or fifth metatarsal tenderness to palpation. There is no swelling. The range of motion in the foot is normal to flexion, extension, inversion, and eversion. She does walk with a slight antalgic gait. ASSESSMENT: Left foot pain. PLAN: I will refer her to Dr. Fernandes in podiatry. There were no ensuing injuries, and so I did not x-ray her today. This is distinctly different from her old histories of ankle pain. I asked her to continue to rest, elevate, and ibuprofen as needed, and I will followup with her on an as needed basis after her followup with Dr. Fernandes. TT: CT: [id number] C: DOCUMENT: [id number] ESS FITTER Vida Epperson MD - 11/24/2001 12:01 AM CDT Progress Notes signed by at 07/07/022333 Author: Vida Epperson MD Service: (none) Author Type: Physician Filed: 09/03/10 0726 Note Time: 11/24/012333 Status: Signed Almond Pan Finisher: Vida Epperson MD (Physician) IMPRESSION: Left ankle pain consistent with sprain. SUBJECTIVE: Aqluzy-clxo-tiap-old coming in with left ankle pain. She was getting out of a van when her left ankle gave out on her and she twisted it and hit the curb. She went to the ER where x-rays were negative. She says that in the beginning it was just sore and she was able to ice it but then two to three hours later she could not bear any weight on it at all. The ER gave her some crutches and told her to take it easy. Symptoms got better for about a week and now seemed to get worse again. She says she is unable to even grocery shop at [employer] without excruciating pain at the top of her foot and then in her heel. Originally the air splint did also help her a little bit. 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 Secondly she would like to have the wart on the bottom of her right foot retreated. She thinks that it did get a little bit smaller after the first treatment. CURRENT MEDICATIONS: Ibuprofen 800 mg p.r.n. pain. ADR/ALLERGIES: SHE HAS NO KNOWN DRUG ALLERGIES. OBJECTIVE: VS/GEN: BP: 134/72. P: 72. Wt: 280 lb. She is alert, pleasant and in no acute distress. Left lateral ankle does have a little bit of swelling. She denies any tenderness over the lateral malleolus, medial malleolus, Achilles or 5th metatarsal. She does have some tenderness over the dorsal mid foot. X-rays are negative. At the bottom of the right heel is a 2 mm plantar's wart which I treated today. ASSESSMENT: Left ankle pain consistent with sprain. PLAN: I have asked her to decrease the activity on her left ankle. She should use the Aircast as needed, ice, elevate, use ibuprofen. If symptoms still present into next week she can call the office and I will schedule her for a bone scan and then follow up with podiatry. Her wart was frozen with three freeze-thaws of liquid nitrogen. She is to follow up if still present in the next five or six weeks. TT: CT: [id number] C: DOCUMENT: [id number] Cesar Mackay - 11/05/2001 12:01 AM CDT Phone Note signed by at 11/05/01 6099 Author: Cesar Sher Service: (none) Author Type: (none) Filed: 09/03/10 0659 Note Time: 11/05/01 0001 Status: Signed Almond Pan Finisher: Cesar Sher IMPRESSION: Foot trauma-(adult)-triage guideline SUBJECTIVE: PATIENT COMPLAINS OF... Foot * HOME PHONE: [phone] * trauma, Pt states 2 1/2 hrs ago, pt twisted foot on step. Has bruising, slight swelling and sharp pain (7-8) in foot, worsening in past hours despite icing and elevating. ; -Sudden intense pain that persists ALLERGIES/SENSITIVITIES... NKDA 11/05/01 CURRENT MEDICATIONS... None 11/05/01 PERTINENT PAST HISTORY... Healthy, smoker 11/05/01 ASSESSMENT: Foot trauma-(adult)-triage guideline DISPOSITION: EMERGENCY PATIENT IS NOT ; PATIENT IS NOT NURSING; PLAN: RECOMMENDED THE FOLLOWING... Referenced guideline Foot trauma-(adult)-triage guideline. Schedule stat appointment with provider Pt will have drive her to [facility] [place]. Assure patient safety -Avoid weight bearing -Apply ice pack to area -Elevate limb above heart level if able -Do not eat or drink until seen by provider INFORMED PATIENT TO CALLBACK IF... Reasons to call back reviewed- caller verbalizes understanding of the need to call back for the following reasons: -Any other questions or concerns Call taken by TRACEE CARVER, RN [phone] 11/05/2001 02:49 PM ADDENDUM: Vida Donato MD - 10/11/2001 12:01 AM CDT Progress Notes signed by Vida Epperson MD at 02/10/02 1542 Author: Vida Epperson MD Service: (none) Author Type: Physician Filed: 09/03/10 0626 Note Time: 10/11/01 0001 Status: Signed Almond Pan Finisher: Vida Epperson MD (Physician) IMPRESSION: Ear pain, likely eustachian tube dysfunction. Plantar wart. SUBJECTIVE: A 36-year-old coming in with bilateral earaches for the last two weeks. Says that she has had problems with talking or chewing. She says her ears feel plugged or under water. She has not tried anything for her symptoms. Denies any fever. Has had some stuffy nose but no cough. Had similar problems when she was 16 years old for which she needed medications. Secondly, she has a lesion on the bottom of her right foot. Says it has been there for at least the last few months. She tried some Compound-W on it, but it did not seem to help and would like to have it treated today. PAST MEDICAL HISTORY: None. MEDICATIONS: No current medications. ADR/ALLERGIES: NO KNOWN DRUG ALLERGIES. OBJECTIVE: VS/GEN: BP: 132/84. T: 97.4. Wt: 276 lb. She is alert, pleasant, and in no acute distress. HEENT: TMs are clear bilaterally. Nasopharynx clear. Oropharynx: Mucous membranes are moist. NECK: Supple, without lymphadenopathy. SKIN: At the instep of her right foot is a 2 mm in diameter verrucous lesion. ASSESSMENT: 1. Ear pain, likely eustachian tube dysfunction. 2. Plantar wart. PLAN: 1. Instructed her on Valsalva maneuver and other ways to open up the eustachian tubes. Ibuprofen 400 mg every six hours as needed to help with inflammation. Watch for stomach upset. Sudafed oawu-vup-xhjtcwn as needed. Also discussed Afrin or Corbin- Synephrine nasal spray, no greater than three days. Call if further problems or fever. 2. Discussed with her liquid nitrogen freezing. Risks and side effects discussed. She agrees to proceed. Four freeze-thaw cycles used. Watch for signs of infection. Followup treatment in three to four weeks as needed. TT: CT: [id number] C: DOCUMENT: [id number] [facility] - 01/10/2001 12:01 AM CDT Phone Note signed by at 01/10/01 1545 Author: Cesar Sher Service: (none) Author Type: (none) Filed: 09/03/10 0021 Note Time: 01/10/01 0001 Status: Signed Almond Pan Finisher: Cesar Sher IMPRESSION: rash TO: LATANYA LEDEZMA FROM: CASIMIRO CHAU [id number] 01/10/01 * PROVIDER MESSAGE: RETURN * 03:45PM * CALL REQUESTED * MESSAGE: pt has rash under breast, * HOME PHONE:[phone] * has tried what you suggested, * CONTACT PHONE:[phone] * calamine or caladryl lotion, hasn't * liz * seen any improvement, wonders what * PHARMACY: [phone] * else she can do? * pnc-suha * SUBJECTIVE: ALLERGIES/SENSITIVITIES... 01/10/01 CURRENT MEDICATIONS... bcp-alesse 01/10/01 PERTINENT PAST HISTORY... Freq. strep throat, overweight 01/10/01 WEIGHT: PATIENT IS NOT . PATIENT IS NOT NURSING. ASSESSMENT: rash PLAN: DISPOSITION: NO DISPOSITION GIVEN CALL BY CASIMIRO CHAU 01/10/2001 03:40PM [id number] ADDENDUM: <> 01/12/2001 08:29AM by SAMANTHA LINDA: Dr. Ledezma notified. See family parctice or dermatology. Pt informed [id number] at 4:30pm. Latanya Leon - 12/27/2000 12:01 AM CDT Progress Notes signed by Latanya Ledezma MD at 01/20/01 9254 Author: Latanya Ledezma MD Service: (none) Author Type: Physician Filed: 09/03/10 0004 Note Time: 12/27/00 0001 Status: Signed Almond Pan Finisher: Latanya Ledezma MD (Physician) IMPRESSION: Obesity. Nicotine use. Dysmenorrhea and hypermenorrhea. SUBJECTIVE: Liz Crowley is a 35-year-old white female, 5, para 3-0- 2-3, whose last menstrual period was 12/06/00. She had a tubal ligation two and a half years ago following the of her third daughter. She is doing well except that her menses are now heavier and cramps are worse. She also complains of rash under both breasts and says this is much worse since the onset of hot weather. Past history and family history are reviewed and are unchanged. SHE KNOWS OF NO DRUG ALLERGIES. Takes no medicines regularly. She smokes one pack of cigarettes daily. OBJECTIVE: BP: 116/78. Ht: 5 feet 6-1/4. Wt: 271. NECK: Supple. No adenopathy, no thyromegaly. HEART: Regular sinus rhythm. No murmurs are heard. Lungs are clear. Breasts are symmetrical. No masses are felt. Nipples are everted. There is no discharge. There is a rash under both breasts. Abdomen is obese and no masses are noted. External genitalia negative. Introitus parous. Vagina and cervix are negative. The uterus is difficult to feel but no masses are felt and it seems to be normal size. No adnexal masses are felt. ASSESSMENT: 1. Obesity. 2. Nicotine use. 3. Dysmenorrhea and hypermenorrhea. PLAN: Treatment: (1) Pap smear. (2) Lab work, including cholesterol and HDL, glucose, and hemoglobin. (3) Stop smoking. (4) Alesse oral contraceptives for three months to try to regulate menses. 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 See forms for full details. Patient clear for work and driving. OBJECTIVE: N/A ASSESSMENT: DOT physical. PLAN: N/A TLB:[id number] C: DOCUMENT: [id number] Jelani Stone MD - 02/23/2000 12:01 AM CDT Progress Notes signed by Jelani Stone MD at 03/10/00 0730 Author: Jelani Stone MD Service: (none) Author Type: Physician Filed: 09/02/10 1848 Note Time: 02/23/00 0001 Status: Signed Almond Pan Finisher: Jelani Stone MD (Physician) IMPRESSION: Sinusitis. SUBJECTIVE: Here today complaining of severe nasal congestion for the past 1- 1/2 weeks, associated with some frontal sinus headache. It is similar to when she has had sinus infections in the past. She does have some associated cough and shortness of breath and congestion in the chest. She has not gotten better despite treatment with Comtrex at home and Nyquil at night. SHE HAS NO KNOWN DRUG ALLERGIES. OBJECTIVE: BP: 112/82. T: 96.4. Wt: 271. GENERAL: No acute distress. HEENT: Pupils equal. Sclerae are clear. TMs and ear canals clear. Nose: Swollen mucosa, thick drainage, and frontal sinus tenderness. MOUTH and THROAT: Clear. NECK: Supple, without adenopathy. CHEST: Clear to auscultation. ASSESSMENT: Sinusitis. PLAN: Amoxicillin 500 t.i.d. for two weeks. Continue the over-the- counter decongestants if helpful. Plenty of fluids and rest. Follow up if not resolving. HILDA:[id number] C: DOCUMENT: [id number] Emery Ruggiero MD - 11/19/1999 12:01 AM CDT Progress Notes signed by Emery Ruggiero MD at 03/19/02 2334 Author: Emery Ruggiero MD Service: (none) Author Type: Physician Filed: 09/02/10 1715 Note Time: 11/19/99 0001 Status: Signed Almond Pan Finisher: Emery Ruggiero MD (Physician) IMPRESSION: No dictation required. SUBJECTIVE: See JAMISON Petersen dated 11/19/99. OBJECTIVE: N/A ASSESSMENT: Strep pharyngitis. PLAN: The patient was started on Amoxicillin 500 t.i.d. due to the fact that she is a smoker and has cough and a runny nose, also. However, due to the fact that she has a strong exposure history, her daughter, and a throat that looks exactly like strep, I do think this is strep pharyngitis. Return if symptoms worsen or change. Otherwise, follow up with primary MD. LW:[id number] C: DOCUMENT: [id number] ESS FITTER Erin Menendez MD - 10/21/1999 12:01 AM CDT Progress Notes signed by Erin Menendez MD at 02/05/00 1407 Author: Erin Menendez MD Service: (none) Author Type: Physician Filed: 09/02/10 1829 Note Time: 10/21/99 0001 Status: Signed Almond Pan Finisher: Erin Menendez MD (Physician) IMPRESSION: Internal hordeolum. SUBJECTIVE: The patient awoke on the morning of this visit and noticed that it hurt to blink the left eye. She felt pain in one spot over the medial upper lid. The eye was watering secondary to the discomfort. She had had no photophobia or vision changes or other eye pain, except pain localized to the medial upper lid. PAST MEDICAL HISTORY: Negative. No prior eye problems. Does not wear glasses or contacts. No medications. NO KNOWN DRUG ALLERGIES. OBJECTIVE: BP: 128/82, right arm, large cuff. HEENT: KEIRY, EOMI. No redness in the eye itself. Left eyelid palpated, and there was definite tenderness just in the one spot where the patient has her discomfort. Lid was everted, and an internal hordeolum was seen with surrounding redness. No other eye abnormalities nor any periorbital abnormalities noted. Vision was 20/20 on the right and 20/40 on the left, which the patient says was secondary to her watery eye. ASSESSMENT: Internal hordeolum. PLAN: Gentamicin ophthalmic drops, two drops to the left eye four times a day for five days. Warm packs to the eye. Return for worsening or nonresolution of symptoms. EAS:[id number] C: DOCUMENT: [id number] Jeanette Santacruz - 09/11/1999 12:01 AM CDT Progress Notes signed by Jeanette Santacruz MD at 04/22/00 8754 Author: Jeanette Santacruz MD Service: (none) Author Type: Physician Filed: 09/02/10 1883 Note Time: 09/11/99 0001 Status: Signed Almond Pan Finisher: Jeanette Santacruz MD (Physician) IMPRESSION: Acute bronchitis. SUBJECTIVE: Liz is a 33-cari-old white female who comes in today complaining of URI symptoms that started about ten days ago and a severe cough for the last seven days to the point that she loses her breath when she coughs. And she has been having some anterior chest pain over the bronchials when she coughs. The cough is worse at night. She has been sitting up with pillows to sleep. She denies having a fever but she has had sweats a couple times during the night. And she is coughing up yellowish-green mucus with this throughout the day. She has not had an episode of bronchitis for about four or five years. Denies any ear, nose or throat symptoms. She does smoke about one-half a pack of cigarettes per day and has cut that down to five. She had pneumonia about five or six years ago and no history of asthma. 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 She has taken some Nyquil so that she could sleep at night the last couple of nights. MEDICATIONS: None other than Nyquil. ALLERGIES : NONE KNOWN. Tobacco yes. OBJECTIVE: BP: 136/82. T: 97.4. Ht: 5'6. Wt: 276 pounds. HEENT: Ears are negative for TM injection. Nose is mild erythema, 1+ edema of the mucosa. Pharynx is mildly injected with some posterior mucus. No sinus tenderness. CHEST is clear in regards to rales or wheezes. There is an occasional rhonchi. HEART is regular sinus rhythm without any murmurs. Her peak flows are 360, 360, 360, and normal for her should be around 440. ASSESSMENT: Acute bronchitis. PLAN: 1. Discussed smoking cessation. 2. Amoxicillin 500 mg t.i.d. for ten days. 3. Albuterol inhaler t.i.d. and she was shown how to use this and told how often to take it. 4. Tessalon Perles for her cough. 5. Also discussed rest, forcing fluids, etc. 6. Followup p.r.n. BRB:[id number] C: DOCUMENT: [id number] Lesley Diamond APRN, STORAGE BATTERY INSPECTOR AND TESTER - 06/10/1999 12:01 AM CST Progress Notes signed by VIRI Torres at 07/14/99 1019 Author: VIRI Torres Service: (none) Author Type: (none) Filed: 09/02/10 1448 Note Time: 06/10/99 0001 Status: Signed Almond Pan Finisher: VIRI Torres (Nurse Practitioner) IMPRESSION: Laryngitis. Tobacco abuse. SUBJECTIVE: Liz is a 33-year-old smoker who has had laryngitis for the last month. Her voice does improve over the day. She has a dry hacky cough, sore throat because of the cough. No fever, chills or sweats. The cough is occasionally productive. She states that she has had some red flecks in the sputum three to four times over the last few days. She has nasal congestion, occasional rhinitis which is yellow to green in color. Occasionally she is short of breath, but no other feelings of viral or bacterial illness such as fatigue. No wheezing. She would like to work toward smoking cessation and we discussed this further. The advantages of using Zyban and/or the patch were discussed. She will think these over further and then let me know what she would like to use if she needs a prescription. MEDICATIONS: None. ALLERGIES: No known drug allergies. OBJECTIVE: WT: 281 pounds. T: 97.9. BP: 132/88. EAR CANALS: Clear. TMS: Normal. OROPHARYNX: Normal. No anterior cervical lymphadenopathy. LUNGS: Clear to auscultation. ASSESSMENT: 1. Laryngitis. 2. Tobacco abuse. PLAN: Liz will continue to monitor her symptoms. I encouraged her to do voice rest which has not been doing. 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 Encouraged fluids, decreasing her smoking and working toward smoking cessation. If no improvement in the next couple of weeks, we will refer to ENT for further evaluation. Liz states that her laryngitis can improve throughout the day. PSS:[id number] C: DOCUMENT: [id number] ESS FITTER Conversion, [facility] - 03/18/1999 12:01 AM CST Phone Note signed by at 03/18/99 3551 Author: Imr Conversion Service: (none) Author Type: (none) Filed: 09/02/10 1325 Note Time: 03/18/99 0001 Status: Signed Almond Pan Finisher: Cesar Sher IMPRESSION: Foot pain (adult)-nurse guidelines SUBJECTIVE: PATIENT COMPLAINS OF... Acute * HOME PHONE: [phone] * foot pain, ,fractured left * CONTACT PHONE: [phone] * fifth toe on 03/13. 2 hours ago reinjured it when bumping it, in a lot of pain. 3 Ibuprofen not helpful. Tried icing a little. Starting to look bruised, looks swollen.; ALLERGIES/SENSITIVITIES... NOVACAINE--breathing problems 03/18/99 CURRENT MEDICATIONS... none 03/18/99 PERTINENT PAST HISTORY... Freq. strep throat, overweight 03/18/99 ASSESSMENT: Foot pain (adult)-nurse guidelines DISPOSITION: SEMI-URGENT PATIENT IS NOT ; PATIENT IS NOT NURSING; PLAN: RECOMMENDED THE FOLLOWING... Referenced guideline Foot pain (adult)-nurse guidelines. Schedule appointment within provider within 24 hours ,declined appt. Will call back in am if toe is still painful. -Limit weight bearing -Apply ice pack to area -Take OTC analgesic/anti-inflammatory of choice as directed on package Properly fitting shoes will prevent most problems. INFORMED PATIENT TO CALLBACK IF... Reasons to call back reviewed- caller verbalizes understanding of the need to call back for the following reasons: -Symptoms worsen -Symptoms continue after 7-10 days of home management -Any other questions or concerns Call taken by ANDRE PLATT RN [phone] 03/18/1999 07:01 PM ADDENDUM: Shruti Beltre V - 02/23/1999 12:01 AM CDT Progress Notes signed by Shruti Roper PA-C at 03/12/99 9610 Author: Shruti Lisa V., PA-C Service: (none) Author Type: Physician Contract Law Specialist Filed: 09/02/10 1300 Note Time: 02/23/99 0001 Status: Signed Almond Pan Finisher: Shruti Roper PA-C (Physician Contract Law Specialist) IMPRESSION: Pain right lower leg. SUBJECTIVE: A 38-year-old comes in concerns about right lower leg pain of three weeks' duration. Denies any particular trauma; however, states that she has been doing more amount of driving. 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 States that as she drives there is certainly no pain; however, the pain into the lower leg is more noticeable as she kneels down and rolls on her knee or leg. Pain is anteriorly on the lower leg. It is a fairly sharp pain and at times seems to radiate towards the upper leg into the hip. Denies any numbness or tingling. Walking, standing or typical activities do not seem to bother her. As she sleeps at night especially when she sleeps on her stomach, putting pressure to the lower leg might worsen pain. There has been no bruising or swelling that she has noticed. OBJECTIVE: WT: 251 pounds. This female is in no distress. She is walking without a limp. Upon inspection of the lower leg there is no evidence of swelling, erythema. No pain on pressure of the calf. Negative Ro's sign. She does have exquisite tenderness as I press anteriorly on the morillo approximately two inches below the knee. This pain only worsens with pressure and not with mobility. Knee is unremarkable. Hip and upper leg unremarkable. Reflexes trace for the lower extremities. X-ray of the lower leg shows no evidence of abnormalities on the bone. This will be further evaluated by the radiologist. ASSESSMENT: Pain right lower leg. PLAN: Recommended ibuprofen 600 mg twice daily. Should take with food. Ice to this area when having pain. Otherwise could work on some stretches for the lower leg and morillo muscles. Should try those with heat. Talked about strengthening exercises as well. Believes that this pain could certainly be due to the amount of driving that she is doing. If symptoms fail to improve, patient should follow-up. At that time will consider physical therapy. Patient agreed to plan. CC: SALIMA:[id number] C: DOCUMENT: [id number] Shruti Gonzalez V - 01/13/1999 12:01 AM CDT Progress Notes signed by Shruti Roper PA-C at 01/16/99 1424 Author: Shruti Roper PA-C Service: (none) Author Type: Physician Contract Law Specialist Filed: 09/02/10 1219 Note Time: 01/13/992333 Status: Signed Almond Pan Finisher: Shruti Roper PA-C (Physician Contract Law Specialist) IMPRESSION: DOT physical examination. SUBJECTIVE: This is a 33-year-old female here for a DOT physical through the [facility] Lands [facility] Physical. PAST MEDICAL HISTORY: Essentially unremarkable. No history of heart disease, diabetes, epilepsy. For complete details, please review Lands Resource Manager Medical Examination Form filed in the patient's chart. MEDICATIONS: None. SURGERIES: Tubal ligation five months ago. ALLERGIES: NOVOCAINE. OBJECTIVE: BP: 120/80. P: 76 before exercise; 86 immediately after exercise. Vision: 20/20 right and left eyes; patient does not wear glasses. Patient passed hearing to whisper voice as well as audiometry. Her urine was negative for albumin and sugar and specific gravity 1.025. Complete physical examination was within normal limits. Please review form filed in this patient's chart. ASSESSMENT: DOT physical examination. PLAN: The proper paperwork was filled out and given to the patient. She should be able to drive. No restrictions. CC: SALIMA:[id number] C: DOCUMENT: [id number] Latanya Ledezma - 01/09/1999 12:01 AM CDT Progress Notes signed by Latanya Ledezma MD at 03/26/99 1413 Author: Latanya Ledezma MD Service: (none) Author Type: Physician Filed: 09/02/10 1216 Note Time: 08/27/99 0001 Status: Signed Almond Pan Finisher: Latanya Ledezma MD (Physician) IMPRESSION: Normal exam. SUBJECTIVE: Liz Crowley is a 33-year-old white female 5 para 3-0-2- 3 who delivered in July. She had a tubal ligation. She is doing well and taking no medicines. She knows of no allergies. OBJECTIVE: Ht: 66 inches. Wt: 257. BP: 114/70. Breasts: No masses. Nipples are everted. Abdomen negative. External genitalia negative. Introitus parous. Vagina and cervix are negative. Uterus and adnexa are difficult to feel but no obvious masses are present. ASSESSMENT: Normal exam. PLAN: Pap smear. CC: [facility]:[id number] C: DOCUMENT: [id number] ESS FITTER Latanya Ledezma - 09/09/1998 12:01 AM CDT Progress Notes signed by Latanya Ledezma MD at 10/04/98 1349 Author: Latanya Ledezma MD Service: (none) Author Type: Physician Filed: 09/02/10 1015 Note Time: 09/09/98 0001 Status: Signed Almond Pan Finisher: Latanya Ledezma MD (Physician) IMPRESSION: Normal course. SUBJECTIVE: Liz Crowley is dgra-fnv-r-half weeks and status post tubal ligation as well. She is doing quite well and says that the baby is also doing nicely. The baby, whose name is Anika, is a little girl with Down's syndrome. At the present time she is having no cardiac problems and is on no medicines. OBJECTIVE: BP: 102/72. WT: 249 pounds. Abdomen: The umbilical incision is healing well. Pelvic exam: External genitalia negative. Introitus parous. Vagina and cervix are negative. Uterus is well involuted and adnexa are negative. ASSESSMENT: Normal course. PLAN: 1. Pap smear. 2. Return in one year or p.r.n. [facility]:[id number] C: DOCUMENT: [id number] Latanya Ledezma - 08/05/1998 12:01 AM CST Progress Notes signed by Latanya Ledezma MD at 08/11/98 1021 Author: Latanya Ledezma MD Service: (none) Author Type: Physician Filed: 09/02/10 0936 Note Time: 08/05/982333 Status: Signed Almond Pan Finisher: Latanya Ledezam MD (Physician) IMPRESSION: 37-1/2 weeks. SUBJECTIVE: Liz Crowley is now 37-1/2 weeks gestation. She says she is miserable and that she had many [place] contractions last night, but her cervix is unchanged today. OBJECTIVE: The remainder of the exam is normal. ASSESSMENT: 37-1/2 weeks. PLAN: Return one week or p.r.n. ADIA:[id number] C: DOCUMENT: [id number] ESS FITTER Latanya Ledezma - 07/22/1998 12:01 AM CST Progress Notes signed by Latanya Ledezma MD at 03/19/02 2334 Author: Latanya Ledezma MD Service: (none) Author Type: Physician Filed: 09/02/10 0921 Note Time: 07/22/982333 Status: Signed Almond Pan Finisher: Latanya Ledezma MD (Physician) IMPRESSION: No dictation required. SUBJECTIVE: N/A OBJECTIVE: N/A ASSESSMENT: N/A PLAN: N/A [facility] ESS FITTER Latanya Ledezma - 07/15/1998 12:01 AM CST Progress Notes signed by Latanya Ledezma MD at 03/19/02 2334 Author: Latanya Ledezma MD Service: (none) Author Type: Physician Filed: 09/02/10 0914 Note Time: 07/15/982333 Status: Signed Almond Pan Finisher: Latanya Ledezma MD (Physician) IMPRESSION: No dictation required. OB check. SUBJECTIVE: N/A OBJECTIVE: N/A ASSESSMENT: N/A PLAN: N/A cab ESS FITTER DulceLatanya - 07/01/1998 12:01 AM CST Progress Notes signed by Latanya Ledezma MD at 03/19/022333 Author: Latanya Ledezma MD Service: (none) Author Type: Physician Filed: 09/02/10 0858 Note Time: 07/01/982333 Status: Signed Almond Pan Finisher: Latanya Ledezma MD (Physician) IMPRESSION: No dictation required. SUBJECTIVE: OB check. Preprinted forms. OBJECTIVE: N/A ASSESSMENT: N/A PLAN: N/A EM151 ESS FITTER Dulce Latanya Valentine - 06/17/1998 12:01 AM CST Progress Notes signed by Latanya Ledezma MD at 03/19/022333 Author: Latanya Ledezma MD Service: (none) Author Type: Physician Filed: 09/02/10 0841 Note Time: 06/17/982333 Status: Signed Almond Pan Finisher: Latanya Ledezma MD (Physician) IMPRESSION: No dictation required. SUBJECTIVE: N/A OBJECTIVE: N/A ASSESSMENT: N/A PLAN: N/A mmh ESS FITTER Dulce Latanya Valentine - 06/03/1998 12:01 AM CST Progress Notes signed by Latanya Ledezma MD at 03/19/022333 Author: Latanya Ledezma MD Service: (none) Author Type: Physician Filed: 09/02/10 0825 Note Time: 06/03/982333 Status: Signed Almond Pan Finisher: Latanya Ledezma MD (Physician) IMPRESSION: No dictation required. OB check. SUBJECTIVE: N/A OBJECTIVE: N/A ASSESSMENT: N/A PLAN: N/A cab ESS FITTER DulceLatanya - 05/20/1998 12:01 AM CST Progress Notes signed by Latanya Ledezma MD at 03/19/02 2334 Author: Latanya Ledezma MD Service: (none) Author Type: Physician Filed: 09/02/10 0810 Note Time: 05/20/982333 Status: Signed Almond Pan Finisher: Latanya Ledezma MD (Physician) IMPRESSION: No dictation required. SUBJECTIVE: N/A OBJECTIVE: N/A ASSESSMENT: N/A PLAN: N/A mmh ESS FITTER Dulce Latanya Meme - 04/25/1998 12:01 AM CST Progress Notes signed by Latanya Ledezma MD at 03/19/02 2334 Author: Latanya Ledezma MD Service: (none) Author Type: Physician Filed: 09/02/10 0747 Note Time: 04/25/982333 Status: Signed Almond Pan Finisher: Latanya Ledezma MD (Physician) IMPRESSION: No dictation required. OB check. SUBJECTIVE: N/A OBJECTIVE: N/A ASSESSMENT: N/A PLAN: N/A [facility] ESS FITTER Dulce Latanya Valentine - 04/15/1998 12:01 AM CST Progress Notes signed by Latanya Ledezma MD at 07/08/98 0922 Author: Latanya Ledezma MD Service: (none) Author Type: Physician Filed: 09/02/10 0736 Note Time: 04/15/98 0001 Status: Signed Almond Pan Finisher: Latanya Ledezma MD (Physician) IMPRESSION: 21-1/2 weeks with possible abnormalities on the ultrasound. SUBJECTIVE: Liz Crowley is now slightly over 21 weeks gestation. She had an ultrasound on 04/11 which showed an apparent thickening of the mucoid fold and lateral ventricle at the area upper limit of normal. It was also impossible to demonstrate a four chamber heart at that time. This was discussed with the patient today. OBJECTIVE: The uterus is 22 weeks size which is in keeping with dates. heart tones are normal. ASSESSMENT: 21-1/2 weeks with possible abnormalities on the ultrasound. It is of note that she declined AFP testing earlier. PLAN: We discussed today the possibility of doing amniocentesis a little later. In the meantime, she will have a level II ultrasound done and return here about a week after that is done. [facility] Latanya Leon - 03/14/1998 12:01 AM CST Progress Notes signed by Latanya Ledezma MD at 04/04/98 1442 Author: Latanya Ledezma MD Service: (none) Author Type: Physician Filed: 09/02/10 0705 Note Time: 03/14/98 0001 Status: Signed Almond Pan Finisher: Latanya Ledezma MD (Physician) IMPRESSION: seventeen weeks with normal colposcopic exam. SUBJECTIVE: Liz Crowley is a 32-year-old 5, para 2-0-2-2 at seventeen weeks gestation. She is doing much better with her nausea, vomiting and heartburn and says she has felt some movement. She is to have colposcopy because of repeated atypical cells on Pap smears. OBJECTIVE: Physical exam is within normal limits. heart tones are heard clearly and uterine fundus is about 18 weeks size. Colposcopic exam is within normal limits. No abnormal epithelium is seen and the endocervix appears normal. ASSESSMENT: seventeen weeks with normal colposcopic exam. PLAN: 1. Discussed AFP and she decided not to have it done. 2. Schedule OB ultrasound. 3. Return in four weeks or p.r.n. bmn Latanya Leon - 02/20/1998 12:01 AM CDT Progress Notes signed by Latanya Ledezma MD at 04/03/98 0853 Author: Latanya Ledezma MD Service: (none) Author Type: Physician Filed: 09/02/10 0644 Note Time: 02/20/98 0001 Status: Signed Almond Pan Finisher: Latanya Ledezma MD (Physician) IMPRESSION: OB appointment. No dictation required. SUBJECTIVE: OB appointment, no dictation. OBJECTIVE: N/A. ASSESSMENT: N/A. PLAN: N/A. [id number] ESS FITTER Conversion, [facility] - 02/19/1998 12:01 AM CDT Phone Note signed by at 02/19/98 1008 Author: Cesar Conversion Service: (none) Author Type: (none) Filed: 09/02/10 0643 Note Time: 02/19/98 0001 Status: Signed Almond Pan Finisher: Cesar Conversion IMPRESSION: Pregancy: morning sickness -nurse guidelines TO: LATANYA LEDEZMA FROM: ADARSH ALVARENGA RN [phone] * PROVIDER MESSAGE: APPT * 02/19/1998 11:55PM * NEEDED * MESSAGE: Unable to * HOME PHONE: [phone] * schedule.Referred to [facility]. * CONTACT PHONE: [phone] * SUBJECTIVE: * Liz * CHIEF CONCERN... Confirmed and symptoms of morning sickness Was just in 02/14.States she's been having nausea and vomiting for past several weeks.Last few nights sx getting worse.Concerned about losing weight.Continues to smoke 1/2 pack cigarettes daily.Requests appointment.; -Persistent nausea for two days ALLERGIES/SENSITIVITIES... NOVACAINE--breathing problems 02/19/98 CURRENT MEDICATIONS... vitamins 02/19/98 PERTINENT PAST HISTORY... Freq. strep throat,EDC 08/23/1998 02/19/98 WEIGHT: Not Available PATIENT IS ; PATIENT IS NOT NURSING; ASSESSMENT: pregancy: morning sickness PLAN: DISPOSITION: SEMI-URGENT RECOMMENDED THE FOLLOWING... Referenced guideline Pregancy: morning sickness -nurse guidelines. Schedule appointment with provider within 16 hours -Eat dry foods at bedside before getting up bedside before getting up -Move slowly upon rising, avoid rushing -Eat frequent small meals -Increase intake of carbohydrates -Ensure adequate intake of fluids -Eat a bedtime snack or extra glass of milk at night -Consume liquids 1/2 hour before eating or eat on even hours-drink on odd hours -Eat bland diet, high in protein and complex carbohydrates -Increase intake of foods rich in Vitamin B -Increase intake of cultured milk products -Avoid greasy or spicy foods, strong-smelling foods, seafood, caffeinated drinks and citrus juice -Eat as soon as hunger appears-putting it off will aggravate nausea. Keep high-protein snacks on hand. -Sip small amounts of clear fluid or suck on ice chips or hard candy to relieve nausea -Herbal teas such as Peppermint, Spearmint, Anise, Chamomile, Red Raspberry [place] and Fennel may be helpful. Honey can be added to russell. -Take OTC vitamin B6 25-100 mgm daily or OTC Unisom, 1/2 tablet twice a day. It usually takes a week to notice improvement. If no improvement after one week it will probably not be effective -Stop vitamins if they aggravate nausea until nausea minimizes. -Continue regular exercise as it helps to decrease nausea. Be sure to eat lightly before and after exercise. -Avoid fatigue. -Stop smoking if applicable Patient information given per Morning Sickness nurse guidelines. INFORMED PATIENT TO CALLBACK IF... Reasons to call back reviewed- caller verbalizes understanding of the need to call back for the following reasons: -Symptoms not improving after 2 days of home management -Unable to keep fluids down for 12-15 hours -Pain, fever or symptoms of dehydration Call taken by ADARSH ALVARENGA RN [phone] 02/19/1998 11:28 PM ADDENDUM: <> 02/20/1998 08:09AM by AL RODRIGUEZ RN: appt booked/pt notified APPOINTMENT MADE. ESS FITTER Latanya Ledezma - 02/14/1998 12:01 AM CDT Progress Notes signed by Latanya Ledezma MD at 04/03/98 0851 Author: Latanya Ledezma MD Service: (none) Author Type: Physician Filed: 09/02/10 0638 Note Time: 02/14/98 0001 Status: Signed Almond Pan Finisher: Latanya Ledezma MD (Physician) IMPRESSION: 12 weeks. SUBJECTIVE: OB visit. Liz Crowley is a 32-year-old white, female, 5, para 2-0-2-2, who has an estimated date of conception of August 23, 1996, by last menstrual period. She was seen about four weeks ago by Elly Sylvester, and lab work was done at that time. She is still having some problem with nausea at times. OBJECTIVE: The uterus is approximately 12 weeks' size. heart tones are audible with [place]optone. ASSESSMENT: 12 weeks. PLAN: 1. The past history was reviewed and the recent abnormal Pap smear noted. She has had several of these of late. 2. She was asked to return in about four weeks at which time colposcopic exam will also be done and a sonogram will be scheduled. cc: Elly hussein ESS FITTER Conversion, [facility] - 01/24/1998 12:01 AM CDT Phone Note signed by at 01/24/98 0511 Author: [facility] Conversion Service: (none) Author Type: (none) Filed: 09/02/10 0618 Note Time: 01/24/98 0001 Status: Signed Almond Pan Finisher: Imr Conversion IMPRESSION: Questions about and skunk smells - TREATING PROVIDER: LATANYA LEDEZMA SUBJECTIVE: * HOME PHONE: [phone] * PATIENT COMPLAINS OF... Patient states she is eight weeks , states her dogs were sprayed by a skunk tonight, and she is wondering if this will cause a problem with the . Denies any untoward sxs. ALLERGIES/SENSITIVITIES... NOVACAINE--breathing problems 01/24/98 CURRENT MEDICATIONS... None 01/24/98 PERTINENT PAST HISTORY... Freq. strep throat 01/24/98 ASSESSMENT: Questions about and skunk smells DISPOSITION: HOME CARE PATIENT IS ; PATIENT IS NOT NURSING; PLAN: RECOMMENDED THE FOLLOWING... Reviewed information from [employer], various pages, and Our Bodies, Ourselves, various pages, found no obvious reference to skunk smells. Suggested monitoring for any bleeding or abdominal pains. INFORMED PATIENT TO CALLBACK IF... further questions. Call taken by BISI CAZARES, DEBI [phone] 01/24/1998 05:07 AM ADDENDUM: ESS FITTER Conversion, [facility] - 12/27/1997 12:01 AM CDT Phone Note signed by at 12/27/97 4221 Author: Cesar Conversion Service: (none) Author Type: (none) Filed: 09/02/10 0552 Note Time: 12/27/972333 Status: Signed Almond Pan Finisher: Cesar Sher IMPRESSION: Sinus congestion-(adult)-nurse guidelines SUBJECTIVE: PATIENT COMPLAINS OF... Sinus * HOME PHONE: [phone] * congestion/discomfort, * CONTACT PHONE: [phone] * symptoms do not interfere * patient * with ADL's, Patient calling; she just tested positive for . She is wondering what she can do for sinus congestion. ; -Facial or sinus pain, made worse by bending over or straining -Post nasal drip with sore throat and/or cough -Headache (frontal) ALLERGIES/SENSITIVITIES... NOVACAINE--breathing problems 12/27/97 CURRENT MEDICATIONS... None 12/27/97 PERTINENT PAST HISTORY... Freq. strep throat 12/27/97 ASSESSMENT: Sinus congestion-(adult)-nurse guidelines DISPOSITION: HOME CARE PATIENT IS ; PATIENT IS NOT NURSING; PLAN: RECOMMENDED THE FOLLOWING... Referenced guideline Sinus congestion-(adult)-nurse guidelines. -Improve room humidity with a cool mist vaporizer -Increase fluid intake -Elevate head when resting and sleeping -Take steamy showers -Apply warm compresses or heating pad to sinus area -Take analgesic of choice as directed on package -Use saline drops or nasal spray for nasal congestion -Use OTC decongestants for relief of drainage and congestion -Avoid cigarette smoke or extremely cool or dry air Patient information given per Sinus Congestion nurse guidelines. INFORMED PATIENT TO CALLBACK IF... Reasons to call back reviewed- caller verbalizes understanding of the need to call back for the following reasons: -Symptoms worsen after 48 hours of medication -Symptoms not resolved after completion of medication -Symptoms unresponsive to home management after 3-4 days -Any other questions or concerns Call taken by MATIAS GARZA R.N. [phone] 12/27/1997 08:44 PM ADDENDUM: <> 12/29/1997 01:08PM by CARLOS MANUEL SINGH [phone]: Pt states that she began to take Sudafed q 12 hours prn yesterday and states that helps with clearing nasal passages. Does smoke but is trying to cut back on that due to the . The nasal discharge is clear, denies any chest congestion or fever. Reviewed the sinus congestion guideline with pt and recommended that she use the Sudafed real sparingly due to the and to call back if sx's continue on or any questions or concerns and she voiced understanding. ESS FITTER Elly Sylvester - 08/14/1997 12:01 AM CST Progress Notes signed by Elly Sylvester APRN, CNP at 09/05/97 1155 Author: HELENA Bejarano Service: (none) Author Type: Nurse Practitioner Filed: 09/02/10 0351 Note Time: 08/14/97 0001 Status: Signed Almond Pan Finisher: HELENA Bejarano (Nurse Practitioner) IMPRESSION: Repeat Pap smear and perioral acne. SUBJECTIVE: Liz Crowley comes in for a repeat Pap after an abnormal Pap of uncertain significance, possible mild dysplasia. She has also been having problems with acne primarily around her mouth. Her other complaint is of persistent pain and a lump in her right forearm. Three weeks ago she fell and had a large bruise in the area. OBJECTIVE: BP: 110/70. Last menstrual period was August 07, 1997. Examination of the arm shows normal range of motion. She has a tender firm area over the ulnar surface at about mid point. X-ray was negative for any bony abnormality. She has multiple small papules and pustules circumorally. Pelvic examination reveals external genitalia to be clean. BUS is clear. Moderate amount of white follicular discharge. Cervix is pink. No eversion. Wet prep was obtained. ASSESSMENT: 1. Resolving contusion, right forearm. 2. Perioral acne. 3. Repeat pap. PLAN: Tetracycline 500 mg p.o. b.i.d. Avoid any oil-based products on the face. Follow-up in one month. Pap test obtained and will follow-up as indicated. Patient reassured about the resolving contusion. david Conversion, [facility] - 04/09/1997 12:01 AM CST Progress Notes signed by at 03/03/98 9337 Author: Cesar Conversion Service: (none) Author Type: (none) Filed: 09/02/10 0157 Note Time: 04/09/97 0001 Status: Signed Almond Pan Finisher: Cesar Conversion IMPRESSION: Continuing otitis media and otitis externa. SUBJECTIVE: A 31-year-old here with continued right ear pain. She was seen at Urgent Care three days ago and diagnosed with bilateral otitis externa. Was prescribed amoxicillin and Cortisporin drops. Initially her symptoms got better, but she has recurring pressure as well as some intermittent plugging in the right ear. Has had no fevers or sore throat. Has mild rhinorrhea and a rare cough. She has no past medical history. MEDICATIONS: Amoxicillin, Cortisporin ear drops and ibuprofen. ADVERSE DRUG REACTIONS: NOVOCAINE. OBJECTIVE: General: Nontoxic appearing. T: 98.4 tympanic. BP: 128/80. WT: 260 lb. HEENT: Both tympanic membranes are red and dull appearing. Left canal looks a little red. Right canal also a little red and mild to moderately swollen. She has discomfort with moving the auricle and the tragus on the right. Nose and throat clear. Neck supple, no lymphadenopathy. Lungs clear throughout. ASSESSMENT: Continuing otitis media and otitis externa. PLAN: Stop amoxicillin and start Augmentin 875 mg b.i.d. times ten days. Continue Cortisporin otic suspension 4 drops to each ear four times a day for five days. Return for worsening or nonresolution of symptoms. cab SCHEDULED RESOURCE: ERIN MENENDEZ MD ESS FITTER Conversion, [facility] - 04/06/1997 12:01 AM CST Progress Notes signed by at 03/03/98 1900 Author: Cesar Conversion Service: (none) Author Type: (none) Filed: 09/02/10 0155 Note Time: 04/06/97 0001 Status: Signed Almond Pan Finisher: Cesar Conversion IMPRESSION: Acute otitis externa, right greater than left. Early sinus infection. SUBJECTIVE: iLz Crowley is a 31-year-old woman who had called in to phone care with 24 hours of acute ear discomfort. She has had nasal congestion for more days, some sinus pressure. She had not noticed fever, although her temperature here is 99. She had not noticed ear drainage. She has also been coughing more with a sensation of posterior nasal drip. No history of swimming. No diabetes. No previous episode of ear infection. The with her states that her usual problem had been strep throats, but she is not having sore throat at this time. LMP--just finished. Allergy to NOVOCAIN. Medications: OTC cold preparations. OBJECTIVE: T: 99. P: 100. R: 18. BP: 120/82. On exam, this is a very uncomfortable 31-year-old female, overweight, with no breathing difficulty. Her right ear canal is swollen, particularly on the medial aspect. There is no odor and minimal discharge. The TM is normal. The left canal is also red with normal TM. She has thick purulent nasal drainage almost plugging the right naris. She has evidence of mucus on the posterior pharynx, but no redness in the soft palate tonsillar area. She has tenderness in the nodes below the right ear and some tenderness into the maxillary sinus. Chest is clear. ASSESSMENT: Acute otitis externa, right greater than left. Early sinus infection. PLAN: A wick and Cortisporin drops were placed into the right ear. She was encouraged to either remove the wick late on Tuesday night or come in on Tuesday morning for removal. She is to use the drops 5 drops every 4 hours today and then 4 times a day for 4-5 days in both ears. She is also given amoxicillin 500 mg tid for 10 days. We discussed after care for the ear, giving her one of our computer print outs on otitis externa and reviewed the other management for sinus congestion and infection with the after care instructions, using nasal saline, nasal saline irrigation and analgesics of choice for the discomfort. Follow up prn. lap SCHEDULED RESOURCE: ANA FAIR MD ESS FITTER Conversion, [facility] - 04/06/1997 12:01 AM CST Phone Note signed by at 04/06/97 0749 Author: Cesar Conversion Service: (none) Author Type: (none) Filed: 09/02/10 0155 Note Time: 04/06/97 0001 Status: Signed Almond Pan Finisher: Cesar Sher IMPRESSION: Ear pain/congestion-(adult)-nurse guidelines - REFERRED PATIENT TO URGENT CARE AT [facility] * HOME PHONE: [phone] * SUBJECTIVE: PATIENT COMPLAINS OF... Deep continuous ear pain; -Facial or sinus pain per pt: Intense, continuous bilateral ear pain X 24 hrs, worse this a.m. Tender to touch, increased pressure. Sinus congestion X 2 days. DENIES: fever, ear drainage, balance disturbances. Alert. Has tried Sinutabs and Tylenol without relief of sx's. Uses Q-tips to clean ears. Pt is tearful.; ALLERGIES/SENSITIVITIES... NOVACAINE--breathing problems 04/06/97 CURRENT MEDICATIONS... Sinutabs; Tylenol prn 04/06/97 PERTINENT PAST HISTORY... Freq. strep throat 04/06/97 ASSESSMENT: Ear pain/congestion-(adult)-nurse guidelines DISPOSITION: SEMI-URGENT PATIENT IS NOT ; PATIENT IS NOT NURSING; PLAN: RECOMMENDED THE FOLLOWING... Referenced guideline Ear pain/congestion-(adult)-nurse guidelines. Schedule appointment within 24 hours -Take analgesic of choice as directed on package -Apply warm compresses to the ear -Rest with head elevated Patient information given perEar Pain nurse guidelines. INFORMED PATIENT TO CALLBACK IF... -If pain, fever, or balance problems develop -Any other questions or concerns MISC COMMENTS... Will have family member transport to urgent care for evaluation. Call taken by TEODORO LYLES RN [phone] 04/06/1997 07:38 AM ADDENDUM: Elly Monroy - 01/21/1997 12:01 AM CDT Progress Notes signed by Elly Sylvester APRN, CNP at 02/27/97 1405 Author: HELENA Bejarano Service: (none) Author Type: Nurse Practitioner Filed: 09/02/10 0050 Note Time: 01/21/97 0001 Status: Signed Almond Pan Finisher: HELENA Bejarano (Nurse Practitioner) IMPRESSION: Physical exam. Obesity. SUBJECTIVE: Physical. A 31-year-old white female 4, para 2-0-2-1, one elective and one spontaneous AB. Menstrual history 11 x 28 x 5. She has cramping that is only partially relieved with jxab-zsu-ndoohnx analgesics. She had an abnormal Pap test about two years ago followed by colposcopy. No history of sexually transmitted diseases. She has been sexually active with one partner for five years and she is not currently using any contraception, although she would probably like to start either OCs or Depo-Provera. The only problem on Depo-Provera is that after a year she develops acne. PAST MEDICAL HISTORY: Surgeries: None. Chronic health problems: None. FAMILY HISTORY: Father is 54. Mom 49 and has a history of insulin dependent diabetes x 8 years. Two siblings in good health. Her paternal grandfather of an MD at age 70. Paternal grandmother of lung cancer at age 75. Her maternal grandfather had diabetes. Health habits: She smokes a pack of cigarettes daily for five years. Alcohol intake is 2 to 3 drinks per week. She has given some thought to quitting but is not ready to start a quit date for smoking cessation. She does not exercise on a regular basis. She does not work outside the home. She does self-breast examinations. She is due for a tetanus booster, cholesterol is checked about three years ago and was elevated, although does not recall the number. OBJECTIVE: BP: 114/64. Ht: 5'5-3/4. Wt: 250. T: 97.8. LMP: 01/07/97. Overweight white female. No acute distress. HEENT: Tympanic membranes are clear. Pharynx is clear. No cervical adenopathy. Pupils equal, react to light. Normal EOMs. Normal funduscopic exam. Neck is supple. No thyromegaly or nodules. Chest: Breath sounds are clear. Heart: Normal S1/S2, no murmur or gallop. Breasts: No masses, puckering, dimpling or nipple discharge. She does have some scattered nodularity consistent with fibrocystic changes. Abdomen is obese, soft and nontender, no masses. Extremities: No varicosities. Pelvic exam: External genitalia is clean. BUS clear. Vagina is pink, moderate amount of white floccular discharge. Cervix is pink, no eversion. Bimanual exam: Uterus is firm, mobile, no cervical motion tenderness. Unable to palpate the ovaries bilaterally. No adnexal tenderness or masses. ASSESSMENT: Physical exam. PLAN: We will check a cholesterol, Pap, hemoglobin and followup as indicated. Anaprox 275 mg two at onset of symptoms and 1 q.6 to 8h. p.r.n. May start Depo-Provera 150 q.12 weeks with her next menses or she will call if she decides to use OCs instead. Encouraged smoking cessation. Exercise and weight loss. akk Elly Sylvester - 01/17/1997 12:01 AM CDT Progress Notes signed by Elly Sylvester APRN, STORAGE BATTERY INSPECTOR AND TESTER at 02/23/97 0929 Author: HELENA Bejarano Service: (none) Author Type: Nurse Practitioner Filed: 09/02/10 0048 Note Time: 01/17/97 0001 Status: Signed Almond Pan Finisher: HELENA Bejarano (Nurse Practitioner) IMPRESSION: Bronchitis. SUBJECTIVE: CHIEF COMPLAINT: Cough. Patient has had a one week history of postnasal drainage and cough productive of green mucus. She has had a temperature intermittently as high as 101. She has no history of asthma or allergies. She had pneumonia about nine years ago. Smokes a pack of cigarettes daily for five years. She is thinking about quitting. Has tried twice in the past. Has been taking Sinutab, Tylenol Sinus, and Vicks with minimal relief of symptoms. OBJECTIVE: BP: 92/60. T: 97.7. Ht: 5'5-05/19. Wt: 250. HEENT: Tympanic membranes are clear. Pharynx is clear. No cervical adenopathy. No pain over the maxillary or frontal sinuses. Chest: Breath sounds clear. ASSESSMENT: Bronchitis in smoker. PLAN: Amoxicillin 500 p.o. t.i.d. x10 days. Phenergan with Codeine 1 2 tsp q.6h. p.r.n. Recheck for worsening or nonresolution of symptoms. mmh documented in this encounter Plan of Treatment Upcoming Encounters Date Type Specialty Care Team Description 06/15/2022 Appointment Orthopedics Vanna Ulloa MD [address], [place] [address] (Wo rk) documented as of this encounter Procedures Procedure Name Priority Date/Time Associated Comments Diagnosis XR FOOT 3+ VIEWS Routine 11/24/2001 1:29 PM Resul ts for this CDT procedure are i n the results section. GLUCOSE Routine 12/27/2000 3:11 PM Results f or this CDT procedure are i n the results section. HEMOGLOBIN, BLOOD Routine 12/27/2000 3:11 PM Resu lts for this CDT procedure are i n the results section. CHOLESTEROL, TOTAL Routine 12/27/2000 3:11 PM Res ults for this AND HDL CDT procedure are i n the results section. ANATOMICAL PATH-C Routine 12/27/2000 8:56 AM Resu lts for this CDT procedure are i n the results section. RESULT CONVERSION Routine 11/28/2000 12:43 PM Res ults for this DUMMY ORDER CDT procedure are i n the results section. ANC RESULT Routine 08/17/2000 3:23 PM Results f or this CONVERSION DEFAULT CDT procedure are in ORDER the results section. ANC RESULT Routine 08/17/2000 3:23 PM Results f or this CONVERSION DEFAULT CDT procedure are in ORDER the results section. STREP GROUP A Routine 09/04/1999 4:03 PM Results for this ANTIGEN TEST CDT procedure are i n the results section. BETA STREP FOLLOWUP Routine 09/04/1999 4:03 PM Re sults for this CDT procedure are i n the results section. STREP GROUP A Routine 04/25/1999 10:14 AM Results for this ANTIGEN TEST HARNESS FITTER procedure are i n the results section. BETA STREP FOLLOWUP Routine 04/25/1999 10:14 AM R esults for this HARNESS FITTER procedure are i n the results section. ANC RESULT Routine 02/23/1999 10:57 AM Results for this CONVERSION DEFAULT CDT procedure are in ORDER the results section. X URINALYSIS Routine 01/13/1999 2:58 PM Results f or this CHEMICALS ONLY CDT procedure are in the results section. ANATOMICAL PATH-C Routine 01/09/1999 5:53 AM Resu lts for this CDT procedure are i n the results section. ANATOMICAL PATH-C Routine 09/09/1998 9:47 AM Resu lts for this CDT procedure are i n the results section. X URINALYSIS Routine 08/05/1998 3:35 PM Results f or this CHEMICALS ONLY HARNESS FITTER procedure are in the results section. ANC RESULT Routine 07/23/1998 1:44 PM Results f or this CONVERSION DEFAULT HARNESS FITTER procedure are in ORDER the results section. GROUP B STREP SCREEN Routine 07/22/1998 4:34 PM R esults for this (OB PTS) HARNESS FITTER procedure are i n the results section. X URINALYSIS Routine 07/22/1998 3:57 PM Results f or this CHEMICALS ONLY HARNESS FITTER procedure are in the results section. HEMOGLOBIN OB Routine 05/20/1998 3:48 PM Results for this HARNESS FITTER procedure are i n the results section. GLUCOSE - 1 HR. P.C. Routine 05/20/1998 3:48 PM R esults for this PREG HARNESS FITTER procedure are i n the results section. US OB >/= 14 WEEKS 0 Routine 04/11/1998 2:00 PM R esults for this DAYS, SINGLE FETUS HARNESS FITTER procedure are in the results section. URINALYSIS COMPLETE Routine 01/14/1998 3:10 PM Re sults for this CDT procedure are i n the results section. NEW OB WORKUP PN Routine 01/14/1998 3:10 PM Resul ts for this CDT procedure are i n the results section. URINE CULTURE Routine 01/14/1998 3:10 PM Results for this CDT procedure are i n the results section. ANATOMICAL PATH-C Routine 01/14/1998 6:42 AM Resu lts for this CDT procedure are i n the results section. XR FOREARM Routine 08/14/1997 3:23 PM Results f or this HARNESS FITTER procedure are i n the results section. ANATOMICAL PATH-C Routine 08/14/1997 8:05 AM Resu lts for this HARNESS FITTER procedure are i n the results section. documented in this encounter Results XR Foot 3+ Views (11/24/2001 1:29 PM CDT) Anatomical Region Laterality Modality Other Specimen (Source) Anatomical Location Collection Method / Collectio n Time Received Time / Laterality Volume Narrative 11/24/2001 1:29 PM CDT CLINICAL DATA: ?PAIN FINDINGS: ?BN1 ?NO RADIOGRAPHIC EVIDENCE OF BONE O R JOINT ABNORMALITY. TECH-ID : ? RE TRANS-ID: Procedure Note Tracee Sams - 07/19/2016 CLINICAL DATA: PAIN FINDINGS: BN1 NO RADIOGRAPHIC EVIDENCE OF BONE OR DAVID NT ABNORMALITY. TECH-ID : RE TRANS-ID: Vida Epperson MD RAD GD Glucose (12/27/2000 3:11 PM CDT) P athologist Signature Lab Glucose 101 60 - 109 HP CONVERSION mg/dL Specimen (Source) Anatomical Collection Method Collection Time Re ceived Time Location / / Volume Laterality 12/27/2000 3:11 PM CDT Latanya Valentine [employer] LAB_1 Performing Organization Address City/[facility] Phon e Number HP CONVERSION (ABNORMAL) Cholesterol, Total and HDL (12/27/2000 3:11 PM CDT) Patholo gist Method Time Signature Cholesterol/HDL 6.6 No normal HP CONVERSION Ratio Screen range Cholesterol 197 125 - 199 HP CONVERSION mg/dL HDL Cholesterol 30 (LL) 36 - 80 HP CONVERSION mg/dL Specimen (Source) Anatomical Collection Method Collection Time Re ceived Time Location / / Volume Laterality 12/27/2000 3:11 PM CDT Latanya Valentine [employer] LAB_1 Performing Organization Address [facility] Phon e Number HP CONVERSION (ABNORMAL) Hemoglobin, Blood (12/27/2000 3:11 PM CDT) athologist Signature Hemoglobin 15.6 (HH) 11.8 - HP CONVERSION 15.5 gm/dL Specimen (Source) Anatomical Collection Method Collection Time Re ceived Time Location / / Volume Laterality 12/27/2000 3:11 PM CDT Latanya Ledezma LAB_1 Performing Organization Address City/[facility] Code Phon e Number HP CONVERSION Anatomical Path-C (12/27/2000 8:56 AM CDT) athologist Signature PAP Smear SEE TEXT No normal HP CONVERSION range Comment: Patient: LIZ CROWLEY ? CERVICAL CYTOLOGY REPORT Pathology # ??[id number] ?Date Obtained: ? Date Received: LMP: ?12-06-00 CLINICAL HIST ? NRML PAP 01-09-99, [phone] CERVICAL SMEAR SPECIMEN ADEQUACY: ?? Satisfactory. ENDOCERVICAL CELLS: ??Present. CYTOLOGIC IMPRESSION: Within Normal Limits (Negative). Verified 01/05/01 by: ??Jacky Powell MD ? (electronic signature) Specimen (Source) Anatomical Collection Method Collection Time Re ceived Time Location / / Volume Laterality 12/27/2000 8:56 AM CDT Latanya Ledezma LAB_1 Performing Organization Address [facility] Code Phon e Number HP CONVERSION Result Conversion Dummy Order (11/28/2000 12:43 PM CDT) [facility] Time Signature Lab Glucose Negative Negative HP CONVERSION Protein Urine Negative Neg-Trac HP CONVERSION U Specific 1.025 1.005 - 25 HP CONVERSION [place] Specimen (Source) Anatomical Collection Method Collection Time Re ceived Time Location / / Volume Laterality 11/28/2000 12:43 PM CDT Mian Tony MD LAB_1 Performing Organization Address City/State/ZIP Code Phon e Number HP CONVERSION Anc Result Conversion Default Order (08/17/2000 3:23 PM CDT) Anatomical Region Laterality Modality Other Specimen (Source) Anatomical Location Collection Method / Collectio n Time Received Time / Laterality Volume Narrative 08/17/2000 3:23 PM CDT CLINICAL DATA: ?PAIN FINDINGS: ?THE PA VIEW IS MARKEDLY OVEREXPOSE D AND NONDIAGNOSTIC. ??ONLY ?THE 3RD THROUGH 6TH VERTEBRAL BODI ES ARE SEEN ON THE LATERAL ?VIEW AND THE FILM IS CENTERED AT T HE UPPER THORACIC SPINE. ?WOULD RECOMMEND THAT THE PATIENT R ETURN FOR REPEAT FILMS. ?NextPotential[employer] TECH-ID : ? RE TRANS-ID: ? EDR ORDER PROVIDER: ?? [id number] ??- ALYSA Kovacs Procedure Note SoniajaneritaTracee - 07/19/2016 CLINICAL DATA: PAIN FINDINGS: THE PA VIEW IS MARKEDLY OVEREXPOSED AND NONDIAGNOSTIC. ONLY THE 3RD THROUGH 6TH VERTEBRAL BODIES AR E SEEN ON THE LATERAL VIEW AND THE FILM IS CENTERED AT THE UP PER THORACIC SPINE. WOULD RECOMMEND THAT THE PATIENT RETURN FOR REPEAT FILMS. [employer] TECH-ID : RE TRANS-ID: EDR ORDER PROVIDER: [id number] - ALYSA Kovacs Imr Conversion RAD GD Anc Result Conversion Default Order (08/17/2000 3:23 PM CDT) Anatomical Region Laterality Modality Other Specimen (Source) Anatomical Location Collection Method / Collectio n Time Received Time / Laterality Volume Narrative 08/17/2000 3:23 PM CDT CLINICAL DATA: ?PAIN FINDINGS: ?THERE ARE SIX VERTEBRAL BODIES WIT HOUT RIBS. ??THE ?INTERCRISTAL LINE IS AT THE L4-5 I NTERSPACE. ?THE LUMBAR SPINE IS NORMAL IN ALIG NMENT. ??THERE IS NO DISC ?SPACE NARROWING OR END PLATE SPURR ING SEEN. ??THERE ARE ?HYPERTROPHIC CHANGES OF THE FACETS AT L4-5 BILATERALLY. ?ALSO NOTED IS PARTIAL LUMBARIZATIO N OF S1 ON THE RIGHT. ??THE ?SI JOINTS ARE UNREMARKABLE IN APPE ARANCE. ?MT/CAR TECH-ID : ? RE TRANS-ID: ? EDR ORDER PROVIDER: ?? [id number] ??- ALYSA Kovacs Procedure Note Soniajanerita Tracee - 07/19/2016 CLINICAL DATA: PAIN FINDINGS: THERE ARE SIX VERTEBRAL BODIES WITHOUT RIBS. THE INTERCRISTAL LINE IS AT THE L4-5 INTERS PACE. THE LUMBAR SPINE IS NORMAL IN ALIGNMENT . THERE IS NO DISC SPACE NARROWING OR END PLATE SPURRING S EEN. THERE ARE HYPERTROPHIC CHANGES OF THE FACETS AT L 4-5 BILATERALLY. ALSO NOTED IS PARTIAL LUMBARIZATION OF S1 ON THE RIGHT. THE SI JOINTS ARE UNREMARKABLE IN APPEARANC E. MT/CAR TECH-ID : RE TRANS-ID: EDR ORDER PROVIDER: [id number] - ALYSA Kovacs Imr Conversion RAD GD Strep Group A Antigen Test (09/04/1999 4:03 PM CDT) Analysis Performed At Patho logist Time Signature Strep Group A Negative Negative HP CONVERSION Antigen Test Comment: Culture to follow. Specimen (Source) Anatomical Collection Method Collection Time Re ceived Time Location / / Volume Laterality 09/04/1999 4:03 PM CDT Kerry Perdue MD LAB_1 Performing Organization Address City/State/ZIP Code Phon e Number HP CONVERSION Beta Strep Followup (09/04/1999 4:03 PM CDT) P athologist Signature Strep Screen SEE TEXT HP CONVERSION Comment: Patient: LIZ CROWLEY Rapid Strep Follow up Culture @ ? Collected: ??[id number] ??[id number] Source: Throat ?Processed: ??[id number] ??[id number] ? 12 Final Report ------ ?[id number] ??[id number] No beta hemolytic Strep group A isolated . @ = Rapid F/U Cult Performed at ??[address] [place], [place] ?[address] Specimen (Source) Anatomical Collection Method Collection Time Re ceived Time Location / / Volume Laterality 09/04/1999 4:03 PM CDT Kerry Perdue MD LAB_1 Performing Organization Address [facility] Phon e Number HP CONVERSION Strep Group A Antigen Test (04/25/1999 10:14 AM HARNESS FITTER) Analysis Performed At [facility] Time Signature Strep Group A Negative Negative HP CONVERSION Antigen Test Comment: Culture to follow. Specimen (Source) Anatomical Collection Method Collection Time Re ceived Time Location / / Volume Laterality 04/25/1999 10:14 AM HARNESS FITTER Kayla Martinez MD LAB_1 Performing Organization Address City/[facility] Code Phon e Number HP CONVERSION Beta Strep Followup (04/25/1999 10:14 AM HARNESS FITTER) P athologist Signature Strep Screen SEE TEXT HP CONVERSION Comment: Patient: LIZ CROWLEY Rapid Strep Follow up Culture @ ? Collected: ??[id number] ??[id number] Source: Throat ?Processed: ??[id number] ??[id number] ? 12 Final Report ------ ?[id number] ??0805 No beta hemolytic Strep group A isolated . @ = Rapid F/U Cult Performed at ??[address] [place], [place] ?[address] Specimen (Source) Anatomical Collection Method Collection Time Re ceived Time Location / / Volume Laterality 04/25/1999 10:14 AM HARNESS FITTER Kayla Martinez MD LAB_1 Performing Organization Address City/State/ZIP Code Phon e Number HP CONVERSION Anc Result Conversion Default Order (02/23/1999 10:57 AM CDT) Anatomical Region Laterality Modality Other Specimen (Source) Anatomical Location Collection Method / Collectio n Time Received Time / Laterality Volume Narrative 02/23/1999 10:57 AM CDT CLINICAL DATA: ?PAIN ON ANTERIOR ASPECT OF LOWER L EG 3 INCHES FROM KNEE. FINDINGS: ?BN1 ?NO RADIOGRAPHIC EVIDENCE OF BONE O R JOINT ABNORMALITY. TECH-ID : ? RE TRANS-ID: Procedure Note Jacky Gusman - 07/19/2016 CLINICAL DATA: PAIN ON ANTERIOR ASPECT OF LOWER LEG 3 INCHES FROM KNEE. FINDINGS: BN1 NO RADIOGRAPHIC EVIDENCE OF BONE OR DAVID NT ABNORMALITY. TECH-ID : RE TRANS-ID: Shruti Francisco PA-C RAD GD X Urinalysis Chemicals Only (01/13/1999 2:58 PM CDT) Patholo gist Method Time Signature U Specific 1.025 1.005 - 25 HP CONVERSION [place] pH Urine 8.0 4.5 - 7.5 HP CONVERSION Protein Urine Negative Neg-Trac HP CONVERSION Glucose, Negative Neg-Trac HP CONVERSION Qualitative U Ketones Negative Negative HP CONVERSION U BILI Negative Negative HP CONVERSION Blood Urine Negative Negative HP CONVERSION Nitrite Urine Negative Negative HP CONVERSION Leukocyte Negative Negative HP CONVERSION Esterase Urine Urobilinogen Negative 0.2 - 1.0 HP CONVERSION Urine Specimen (Source) Anatomical Collection Method Collection Time Re ceived Time Location / / Volume Laterality 01/13/1999 2:58 PM CDT Tanya Corona MD LAB_1 Performing Organization Address City/State/ZIP Code Phon e Number HP CONVERSION Anatomical Path-C (01/09/1999 5:53 AM CDT) P athologist Signature PAP Smear SEE TEXT No normal HP CONVERSION range Comment: Patient: LIZ CROWLEY ? CERVICAL CYTOLOGY REPORT Pathology # ??[id number] ?Date Obtained: ? Date Received: LMP: ?12-17-98 CLINICAL HIST ? PREV SMEAR 09-09-98, [id number], INCONCLUSIVE SMEAR CERVICAL SMEAR SPECIMEN ADEQUACY: ?? Satisfactory. ENDOCERVICAL CELLS: ??Present. CYTOLOGIC IMPRESSION: Within Normal Limits (Negative). Verified 01/15/99 by: ??Chauncey Anderson MD ? (electronic signature) Specimen (Source) Anatomical Collection Method Collection Time Re ceived Time Location / / Volume Laterality 01/09/1999 5:53 AM CDT Latanya Ledezma LAB_1 Performing Organization Address [facility]/[place] [facility] [place] Number HP CONVERSION Anatomical Path-C (09/09/1998 9:47 AM CDT) P athologist Signature PAP Smear SEE TEXT No normal HP CONVERSION range Comment: Patient: LIZ CROWLEY ? CERVICAL CYTOLOGY REPORT Pathology # ??[id number] ?Date Obtained: [id number] ? Date Received: [id number] LMP: CLINICAL HIST ? 4 WKS PP. CERVICAL SMEAR SPECIMEN ADEQUACY: ?? Satisfactory. ENDOCERVICAL CELLS: ??Present. CYTOLOGIC IMPRESSION: INCONCLUSIVE SMEAR. Rare atypical squamous cells of uncerta in significance. ??Please consider ?repeat smear in 3-6 months. Verified 09/15/98 by: ??Pattie valle M.D. ?(electronic signature) Specimen (Source) Anatomical Collection Method Collection Time Re ceived Time Location / / Volume Laterality 09/09/1998 9:47 AM CDT Latanya Ledezma LAB_1 Performing Organization Address [facility] Phon e Number HP CONVERSION (ABNORMAL) X Urinalysis Chemicals Only (08/05/1998 3:35 PM HARNESS FITTER) Patholo gist Method Time Signature U Specific 1.025 1.005 - 25 HP CONVERSION [place] pH Urine 6.0 4.5 - 7.5 HP CONVERSION Protein Urine Trace Neg-Trac HP CONVERSION Glucose, Negative Neg-Trac HP CONVERSION Qualitative U Ketones Trace (A) Negative HP CONVERSION U BILI Negative Negative HP CONVERSION Blood Urine Small (A) Negative HP CONVERSION Nitrite Urine Negative Negative HP CONVERSION Leukocyte Trace (A) Negative HP CONVERSION Esterase Urine Urobilinogen Negative 0.2 - 1.0 HP CONVERSION Urine Specimen (Source) Anatomical Collection Method Collection Time Re ceived Time Location / / Volume Laterality 08/05/1998 3:35 PM HARNESS FITTER Latanya Ledezma LAB_1 Performing Organization Address City/State/ZIP Code Phon e Number HP CONVERSION Anc Result Conversion Default Order (07/23/1998 1:44 PM HARNESS FITTER) Anatomical Region Laterality Modality Other Specimen (Source) Anatomical Location Collection Method / Collectio n Time Received Time / Laterality Volume Narrative 07/23/1998 1:44 PM HARNESS FITTER - - - - - - - - - - - - - - - - - - - - - - - - - - - - - - - - - - - ? LMP: ? EDC: 08/23/1998 ?# OF FETUSES ?? 1 PREV US: ?COMMENTS: ?DATE: DATA FOR FETUS #1 ? MOV EMENT(Y/N) ??Y ?? CARDIAC(Y/N) ??Y MEAN SAC DIAM ? MM ?WK S ?? BPD ? 90 ??MM 36.4 WKS CROWN-RUMP ?MM ? WKS ?? HEAD ? 315 ??MM 35.4 WKS FEMUR LENGTH ? 66 MM 34.2 WKS ?? ABDOMINAL ?355 ??MM 39.4 WKS ? HEAD/ABDOMEN 0.89 AMNIOTIC FLUID N ?GEST AGE: 36.4 ?EST WT 3315 GM ?? 7.3 LB SHAYY ?7.2CM POSITION:CEPAHLIC ??PLACEMENT LOC:POST - - - - - - - - - - - - - - - - - - - - - - - - - - - - - - - - - - - CLINICAL DATA: ?LARGE FOR DATES FINDINGS: ?THERE IS A SINGLE FETUS PRESENT IN CEPHALIC POSITION. ??THERE ?IS GOOD MOVEMENT AND CARDIAC ACTIVITY NOTED, AND THERE ?IS A NORMAL AMOUNT OF AMNIOTIC FLU ID. ?THE PLACENTA IS IMPLANTED POSTERIO RLY, AND THERE IS NO ?PLACENTA PREVIA. THE PLACENTA IS M ODERATELY MATURE, WITH ?PLACENTAL CALCIFICATIONS NOTED AT THIS TIME. ?THE FETUS APPEARS NORMAL, WITH NO ANOMALIES SEEN AT THIS ?TIME. ??BY ULTRASOUND MEASUREMENT PARAMETERS, THE ESTIMATED ?GESTATIONAL AGE AT THIS TIME IS 36 .4 WEEKS. ?THE ESTIMATED WEIGHT AT THIS TIME IS 3.31 KG (7 LB 5 ?OZ). TECH-ID : ? KLL TRANS-ID: ? LMA Procedure Note Darshan Vargas - 07/19/2016Formatting o f this note might be different from the original. - - - - - - - - - - - - - - - - - - - - - - - - - - - - - - - - - - - LMP: EDC: 08/23/1998 # OF FETUSES 1 PREV US: COMMENTS: DATE: DATA FOR FETUS #1 MOVEMENT(Y/N) Y CARDIAC(Y/N) Y MEAN SAC DIAM MM WKS BPD 90 MM 36.4 WKS CROWN-RUMP MM WKS HEAD 315 MM 35.4 WKS FEMUR LENGTH 66 MM 34.2 WKS ABDOMINAL 3 55 MM 39.4 WKS HEAD/ABDOMEN 0.89 AMNIOTIC FLUID N GEST AGE: 36.4 EST WT 3315 GM 7.3 LB SHAYY 7.2CM POSITION:CEPAHLIC PLACEMENT LOC:POST - - - - - - - - - - - - - - - - - - - - - - - - - - - - - - - - - - - CLINICAL DATA: LARGE FOR DATES FINDINGS: THERE IS A SINGLE FETUS PRESENT IN CEPH ALIC POSITION. THERE IS GOOD MOVEMENT AND CARDIAC ACTI VITY NOTED, AND THERE IS A NORMAL AMOUNT OF AMNIOTIC FLUID. THE PLACENTA IS IMPLANTED POSTERIORLY, AND THERE IS NO PLACENTA PREVIA. THE PLACENTA IS MODERA TELY MATURE, WITH PLACENTAL CALCIFICATIONS NOTED AT THIS TIME. THE FETUS APPEARS NORMAL, WITH NO ANOMA LIES SEEN AT THIS TIME. BY ULTRASOUND MEASUREMENT PARAMET ERS, THE ESTIMATED GESTATIONAL AGE AT THIS TIME IS 36.4 WE EKS. THE ESTIMATED WEIGHT AT THIS TIME IS 3.31 KG (7 LB 5 OZ). TECH-ID : KLL TRANS-ID: LMA Latanya Meme Dulce RAD GD Group B Strep Screen (OB Pts) (07/22/1998 4:34 PM HARNESS FITTER) Analysis Performed At [facility] Time Signature Culture Strep SEE TEXT HP CONVERSION Screen Other Source Comment: Patient: LIZ CROWLEY Culture Strep Scr Other Source @ ?Collected: ?163 Source: VAGINAL ? Processed: ??[id number] ??1634 ? 12 Final Report ------ ?[id number] ??[id number] No beta hemolytic Streptococci isolated @ = Strep Screen Performed at ??[address] [place] [place] ?[address] Specimen (Source) Anatomical Collection Method Collection Time Re ceived Time Location / / Volume Laterality 07/22/1998 4:34 PM HARNESS FITTER Latanya Ledezma LAB_1 Performing Organization Address City/State/ZIP Code Phon e Number HP CONVERSION (ABNORMAL) X Urinalysis Chemicals Only (07/22/1998 3:57 PM HARNESS FITTER) [facility] gist Method Time Signature U Specific 1.015 1.005 - 25 HP CONVERSION [place] pH Urine 7.5 4.5 - 7.5 HP CONVERSION Protein Urine Negative Neg-Trac HP CONVERSION Glucose, Negative Neg-Trac HP CONVERSION Qualitative U Ketones Negative Negative HP CONVERSION U BILI Negative Negative HP CONVERSION Blood Urine Trace (A) Negative HP CONVERSION Nitrite Urine Negative Negative HP CONVERSION Leukocyte Small (A) Negative HP CONVERSION Esterase Urine Urobilinogen Negative 0.2 - 1.0 HP CONVERSION Urine Specimen (Source) Anatomical Collection Method Collection Time Re ceived Time Location / / Volume Laterality 07/22/1998 3:57 PM HARNESS FITTER Latanya Valentine [employer] LAB_1 Performing Organization Address City/State/ZIP Code Phon e Number HP CONVERSION Hemoglobin Ob (05/20/1998 3:48 PM HARNESS FITTER) athologist Signature OB Hemoglobin 12.0 12.0 - 16.0 HP CONVERSION gm/dL Comment: First trimester (week 12) 11.0 - 13.4 gm /dL Second trimester(week 20) 10.5 - 12.7 gm /dL Third trimester (week 32) 11.0 - 13.2 gm /dL From MMWR 1989;38(22): 400-4 Please note change in reference range ef fective June 15, 2000 Specimen (Source) Anatomical Collection Method Collection Time Re ceived Time Location / / Volume Laterality 05/20/1998 3:48 PM HARNESS FITTER Latanya Valentine [employer] LAB_1 Performing Organization Address City/[facility]/ZIP Code Phon e Number HP CONVERSION Glucose - 1 Hr. P.C. Preg (05/20/1998 3:48 PM HARNESS FITTER) athologist Signature Glucose, GTT - 110 40 - 139 HP CONVERSION 1 Hour mg/dL Specimen (Source) Anatomical Collection Method Collection Time Re ceived Time Location / / Volume Laterality 05/20/1998 3:48 PM HARNESS FITTER Latanya Valentine [employer] LAB_1 Performing Organization Address City/[facility]/ZIP Code Phon e Number HP CONVERSION US OB >/= 14 Weeks 0 Days, Single Fetus (04/11/1998 2:00 PM HARNESS FITTER) Anatomical Region Laterality Modality Pelvis Other Specimen (Source) Anatomical Location Collection Method / Collectio n Time Received Time / Laterality Volume Impressions 04/11/1998 2:00 PM HARNESS FITTER : ?SINGLE LIVING FETUS OF 19.4 WEEKS GESTATION AND 321 G. ??THE ?PLACENTA IS POSTERIOR WITH ITS INF ERIOR MARGIN PARTIALLY ?OVERLYING THE INTERNAL CERVICAL OS . ??A FOUR-CHAMBER HEART ?COULD NOT BE DEFINITELY IDENTIFIED . ??THERE IS INCREASED ?THICKNESS OF THE NUCHAL FOLD AND T HE LATERAL VENTRICLE IS AT ?THE VERY UPPER LIMIT OF NORMAL. ?? FOR THESE REASONS, A LEVEL ?II ULTRASOUND IS RECOMMENDED. FINDINGS: ?THERE IS A SINGLE FETUS IN THE RIAN ECH POSITION. ?MOTION AND CARDIAC ACTIVITY ARE PRESENT. ?? HEART ?RATE IS REGULAR AT 134 BEATS PER M INUTE. ??AMNIOTIC FLUID ?VOLUME IS NORMAL. ?? MEASUREM ENTS CORRELATE WELL WITH A ?COMPOSITE GESTATIONAL AGE OF 19.4 WEEKS AND AN ESTIMATED ? WEIGHT OF 321 G. ??PLACENTA IS POSTERIOR AND ITS ?INFERIOR MARGIN PARTIALLY COVERS T HE INTERNAL CERVICAL OS. ? ANATOMY SURVEY SHOWS A THICK ENED NUCHAL FOLD MEASURING ?7.5 MM. ??THIS IS PERSISTENT AND S EEN ON MULTIPLE VIEWS. ?ADDITIONALLY, THE LATERAL VENTRICL E MEASURES 9.6 MM, AT THE ?VERY UPPER LIMIT OF NORMAL. ??A DE FINITE FOUR-CHAMBER HEART ?WAS NOT ABLE TO BE VISUALIZED. ??H EAD/ABDOMEN RATIO OF 1.05 ?IS APPROXIMATELY 2 STANDARD DEVIAT IONS BELOW THE MEAN. TECH-ID : ? KLL TRANS-ID: ? LMA Narrative 04/11/1998 2:00 PM HARNESS FITTER - - - - - - - - - - - - - - - - - - - - - - - - - - - - - - - - - - - ? LMP: ? EDC: 08/23/1998 ?# OF FETUSES ?? 1 PREV US: ?COMMENTS: ?DATE: DATA FOR FETUS #1 ? MOV EMENT(Y/N) ??Y ?? CARDIAC(Y/N) ??Y MEAN SAC DIAM ? MM ?WK S ?? BPD ? 43 ??MM 19.2 WKS CROWN-RUMP ?MM ? WKS ?? HEAD ? 161 ??MM 19.0 WKS FEMUR LENGTH ? 30 MM 19.3 WKS ?? ABDOMINAL ?152 ??MM 20.4 WKS ? HEAD/ABDOMEN 1.05 AMNIOTIC FLUID N ?GEST AGE: 19.4 ?EST WT 321 ??GM ?? 0.7 LB SHAYY ? CM POSITION:VARIABLE ??PLACEMENT LOC:POST PARTIAL PREVIA - - - - - - - - - - - - - - - - - - - - - - - - - - - - - - - - - - - CLINICAL DATA: ?DATES Procedure Note Kirk Rojas MD - 07/19/2016Forma tting of this note might be different from the original. - - - - - - - - - - - - - - - - - - - - - - - - - - - - - - - - - - - LMP: EDC: 08/23/1998 # OF FETUSES 1 PREV US: COMMENTS: DATE: DATA FOR FETUS #1 MOVEMENT(Y/N) Y CARDIAC(Y/N) Y MEAN SAC DIAM MM WKS BPD 43 MM 19.2 WKS CROWN-RUMP MM WKS HEAD 161 MM 19.0 WKS FEMUR LENGTH 30 MM 19.3 WKS ABDOMINAL 1 52 MM 20.4 WKS HEAD/ABDOMEN 1.05 AMNIOTIC FLUID N GEST AGE: 19.4 EST WT 321 GM 0.7 LB SHAYY CM POSITION:VARIABLE PLACEMENT LOC:POST PARTIAL PREVIA - - - - - - - - - - - - - - - - - - - - - - - - - - - - - - - - - - - CLINICAL DATA: DATES IMPRESSION : SINGLE LIVING FETUS OF 19.4 WEEKS GESTA TION AND 321 G. THE PLACENTA IS POSTERIOR WITH ITS INFERIOR MARGIN PARTIALLY OVERLYING THE INTERNAL CERVICAL OS. A F OUR-CHAMBER HEART COULD NOT BE DEFINITELY IDENTIFIED. THE RE IS INCREASED THICKNESS OF THE NUCHAL FOLD AND THE LA TERAL VENTRICLE IS AT THE VERY UPPER LIMIT OF NORMAL. FOR THE SE REASONS, A LEVEL II ULTRASOUND IS RECOMMENDED. FINDINGS: THERE IS A SINGLE FETUS IN THE BREECH P OSITION. MOTION AND CARDIAC ACTIVITY ARE P RESENT. HEART RATE IS REGULAR AT 134 BEATS PER MINUTE . AMNIOTIC FLUID VOLUME IS NORMAL. MEASUREMENTS CO RRELATE WELL WITH A COMPOSITE GESTATIONAL AGE OF 19.4 WEEKS AND AN ESTIMATED WEIGHT OF 321 G. PLACENTA IS POST ERIOR AND ITS INFERIOR MARGIN PARTIALLY COVERS THE IN TERNAL CERVICAL OS. ANATOMY SURVEY SHOWS A THICKENED NUCHAL FOLD MEASURING 7.5 MM. THIS IS PERSISTENT AND SEEN ON MULTIPLE VIEWS. ADDITIONALLY, THE LATERAL VENTRICLE RAFAEL SURES 9.6 MM, AT THE VERY UPPER LIMIT OF NORMAL. A DEFINITE FOUR-CHAMBER HEART WAS NOT ABLE TO BE VISUALIZED. HEAD/ABD OMEN RATIO OF 1.05 IS APPROXIMATELY 2 STANDARD DEVIATIONS BELOW THE MEAN. TECH-ID : KLL TRANS-ID: LMA Latanya Valentine Dulce HALLMAN New Ob Workup Pn (01/14/1998 3:10 PM CDT) P athologist Signature BB BLOOD TYPE ABPOS No normal HP CONVERSION (BLOOD GROUP & range RH) N/O BB NEG No normal HP CONVERSION ANTIBODY range SCREEN Comment: ABPOS OB Hemoglobin 15.4 12.0 - 16.0 gm/dL HP CONVE RSION Comment: ABPOS First trimester (week 12) 11.0 - 13.4 gm /dL Second trimester(week 20) 10.5 - 12.7 gm /dL Third trimester (week 32) 11.0 - 13.2 gm /dL From MMWR 1988;38(22): 400-4 Please note change in reference range ef fective June 15, 2000 RPR Non Reac Non Reac HP CONVERSION Comment: ABPOS Rubella Immune Status Immune Immune HP CONVE RSION Comment: ABPOS Hep B Surf Ag Negative Negative HP CONVERSION Comment: ABPOS Specimen (Source) Anatomical Collection Method Collection Time Re ceived Time Location / / Volume Laterality 01/14/1998 3:10 PM CDT Shad Remy PN BLOOD BANK ORDERS Performing Organization Address [facility] Phon e Number HP CONVERSION (ABNORMAL) Urinalysis Complete (01/14/1998 3:10 PM CDT) [facility] Method Time Signature Glucose, Negative Neg-Trac HP CONVERSION Qualitative U Protein Urine Negative Neg-Trac HP CONVERSION Ketones Trace (A) Negative HP CONVERSION U BILI Negative Negative HP CONVERSION U Specific 1.015 1.005 - 25 HP CONVERSION [place] Blood Urine Negative Negative HP CONVERSION pH Urine 7.5 4.5 - 7.5 HP CONVERSION Urobilinogen Negative 0.2 - 1.0 HP CONVERSION Urine Nitrite Urine Negative Negative HP CONVERSION Leukocyte Negative Negative HP CONVERSION Esterase Urine White Blood 2-5 (A) 0 - 3 /HPF HP CONVERSION Cells Urine Red Blood Cells 0-2 0 - 3 /HPF HP CONVERSION Urine Bacteria Urine Few (A) None HP CONVERSION Urine Mucus Occassnl None HP CONVERSION Epithelial Cells Moderate Few /HPF HP CONVERSION Specimen (Source) Anatomical Collection Method Collection Time Re ceived Time Location / / Volume Laterality 01/14/1998 3:10 PM CDT Shad Remy LAB_1 Performing Organization Address [facility] Phon e Number HP CONVERSION (ABNORMAL) Urine Culture (01/14/1998 3:10 PM CDT) [facility] Method Time Signature Urine Culture SEE TEXT HP CONVERSION (A) Comment: Patient: LIZ CROWLEY Culture, Urine @ ?Collected: ??[id number] ??[id number] Source: Clean Ca ?Processed: ??[id number] ??1510 ? 14 Final Report ------ ?[id number] ??[id number] 10-50,000 CFU/mL Viridans Streptococcus @ = URINE CULTURE Performed at ??[address], [place] ?[address] Specimen (Source) Anatomical Collection Method Collection Time Re ceived Time Location / / Volume Laterality 01/14/1998 3:10 PM CDT Shad Remy LAB_1 Performing Organization Address City[place]State[place] [facility] [place] Number HP CONVERSION Anatomical Path-C (01/14/1998 6:42 AM CDT) P athologist Signature PAP Smear SEE TEXT No normal HP CONVERSION range Comment: Patient: LIZ CROWLEY ? CERVICAL CYTOLOGY REPORT Pathology # ??[id number] ?Date Obtained: ? Date Received: LMP: ?11-17-97 CLINICAL HIST CERVICAL SMEAR SPECIMEN ADEQUACY: ?? Satisfactory. ENDOCERVICAL CELLS: ??Absent; patient is . CYTOLOGIC IMPRESSION: INCONCLUSIVE SMEAR. Atypical squamous cells of uncertain sig nificance, favor reactive changes. ?Please consider repeat smear in 3- 6 months. Verified 01/23/98 by: ??Chauncey Anderson MD ? (electronic signature) Specimen (Source) Anatomical Collection Method Collection Time Re ceived Time Location / / Volume Laterality 01/14/1998 6:42 AM CDT Shad Remy LAB_1 Performing Organization Address City/State/ZIP Code Phon e Number HP CONVERSION XR Forearm (08/14/1997 3:23 PM HARNESS FITTER) Anatomical Region Laterality Modality Other Specimen (Source) Anatomical Location Collection Method / Collectio n Time Received Time / Laterality Volume Narrative 08/14/1997 3:23 PM HARNESS FITTER CLINICAL DATA: ?INJURY 3 WKS AGO FINDINGS: ?THERE IS MILD SOFT TISSUE SWELLING OVER THE REGION OF THE ?MID FOREARM, BUT THE RADIUS AND UL NA ARE INTACT. ??THERE ARE ?NO FRACTURES NOR BONY LESIONS IDEN TIFIED. ?THE ELBOW AND THE WRIST ARE NORMAL . TECH-ID : ? CO TRANS-ID: ? SKA Procedure Note Durga Milan Marie - 07/19/2016Formattin g of this note might be different from the original. CLINICAL DATA: INJURY 3 WKS AGO FINDINGS: THERE IS MILD SOFT TISSUE SWELLING OVER THE REGION OF THE MID FOREARM, BUT THE RADIUS AND ULNA AR E INTACT. THERE ARE NO FRACTURES NOR BONY LESIONS IDENTIFIE D. THE ELBOW AND THE WRIST ARE NORMAL. TECH-ID : CO TRANS-ID: SKA Elly Sylvester APRN, STORAGE BATTERY INSPECTOR AND TESTER RAD GD Anatomical Path-C (08/14/1997 8:05 AM HARNESS FITTER) athologist Signature PAP Smear SEE TEXT No normal HP CONVERSION range Comment: Patient: LIZ CROWLEY ? CERVICAL CYTOLOGY REPORT Pathology # ??[id number] ?Date Obtained: ? Date Received: LMP: CLINICAL HIST ? PRVS SMR 01-21-97, ATY PICAL SQUAMOUS CELLS OF SIG FAVOR MILD ?DYSP. CERVICAL SMEAR SPECIMEN ADEQUACY: ?? Satisfactory. ENDOCERVICAL CELLS: ??Present. CYTOLOGIC IMPRESSION: INCONCLUSIVE SMEAR. Few cells with mild nuclear enlargement and partial air drying - May wish to ?repeat in 6 months Verified 08/19/97 by: ??Javad brewer M.D. ? (electronic signature) Specimen (Source) Anatomical Collection Method Collection Time Re ceived Time Location / / Volume Laterality 08/14/1997 8:05 AM HARNESS FITTER Elly Sylvester FREELANCE DESIGNER, STORAGE BATTERY INSPECTOR AND TESTER LAB_1 Performing Organization Address City/State/ZIP Code Phon e Number HP CONVERSION documented in this encounter Visit Diagnoses Not on filedocumented in this encounter Care Teams Assistant Customer Service Manager Relationship Specialty Start Date End Date Md Garcia MD PCP - General 08/16/10 01/17/12 [place], [place] [id number] documented as of this encounter
--- OUTSIDE RECORDS SUMMARY | 2022-04-22 14:11 | XMS_ITS | Encounter Summary ---
:1965 Author Organization [facility] Address [address] [place] [address] Care Team Providers Name Role Phone Md GEOVANNY Garcia Primary Care Provider Encounter Details Date Type Department Care Team Description 06/24/2003 PN Conversion Only [place] [address] Kee Ahumada, Obstetrics/Gynecolog y [address] [place] [address] [address] [place], [place] [address] (Wo rk) Social History Tobacco Use Types Packs/Day Years Used Date Smoking Tobacco: Never Assessed Sex Assigned at Date Recorded Not on file documented as of this encounter Progress Notes Phone Note, Clinician - 08/16/2003 12:01 AM CST Phone Note filed by Clinician Phone Note at 09/01/10 134 Author: Clinician Phone Note Service: (none) Author Type: Resource Filed: 09/01/10 134 Note Time: 08/16/03 0001 Status: Signed Machine Setup Operator: Clinician Phone Note (Resource) TO: PATRICE TONY FROM: JOSEFINA GARDNER [phone] * PROVIDER MESSAGE: ROUTINE * 08/16/03 11:14AM * *WITHIN 4 HOURS * MESSAGE: pt calling, states she got * HOME PHONE:[phone] * [facility] z[facility]ac 150mg bid * WORK PHONE:[phone] * with refi lls for a year but * CONTACT PHONE:[phone] * pharmacy has lost record of rx. pt * or try home call today * requesting rx to be called into * please * pharmacy. * PHARMACY: [phone] * SUBJECTIVE: * [facility] * ALLERGIES/SENSITIVITIES... NKDA 11/05/01 CURRENT MEDICATIONS... ZANTAC 150MG BID PERTINENT PAST HISTORY... Healthy, smoker 11/05/01 WEIGHT: PATIENT IS NOT . PATIENT IS NOT NURSING. ASSESSMENT: refill request PLAN: DISPOSITION: NO DISPOSITION GIVEN CALL BY JOSEFINA GARDNER 08/16/2003 11:13AM [phone] ADDENDUM: <> 08/16/2003 01:28PM by TRACEE HALLMAN: RX CALLED TO THE PHARMACY PER DR AGUILERA. RANITADINE 150 MGS ONE PO B ID NUMBER [id number] WITH 1 YEAR OF REFILLS.PT NOTIFIED. CTOR CLINICAL OPERATIONS Kee Ahumada MD - 06/24/2003 12:01 AM CST Progress Notes signed by Kee Ahumada MD at 06/24/03 1510 Author: Kee Ahumada MD Service: (none) Author Type: Physician Filed: 09/03/10 1829 Note Time: 06/24/03 0001 Status: Signed Machine Setup Operator: Kee Ahumada MD (Physician) NAME: LIZ LUNA MR: [id number] ACCT: [id number] VISIT: [id number] DICTATING CLINICIAN: KEE AHUMADA MD JOB: [id number] CLINIC PROGRESS NOTE DATE OF VISIT: 06/24/2003 ASSESSMENT: Bleeding status post cone biopsy. This is probably just part of the normal healing process. It does not appear to be excessive or a serious underlying problem. PLAN: I reassured the patient. Advised her to observe expectant management. If the bleeding becomes excessive, to notify us, and we will have to re-evaluate. I have reviewed the pathology report with her, as well. 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 No evidence of an endocervical abnormality. At this time, I recommended that she return in three months for a followup Pap smear. She can do that with myself or with her primary physician, Dr. Tony. DIAGNOSIS: Bleeding after cone biopsy. SUBJECTIVE: The patient is a 37-year-old status post cone biopsy on 06/12. She is here today because she has had some bleeding less than what would be like a normal menses, passage of pea-sized clots, and some cramping. She is otherwise doing well since the cone biopsy. She is using ibuprofen. She also is on Zantac. ADR/ALLERGIES: SHE HAS NO ALLERGIES. OBJECTIVE: VS: BP: 126/70. Exam was performed with nurse present in the room. External genitalia and vagina were without lesions. Cervix has an appearance consistent with a recent cone biopsy. Actually externally it appears healing well. There is the suture material present. There does not appear to be any active bleeding at this time. DAD:[id number] C: 06/24/03 13:20 DOCUMENT: [id number] CTOR CLINICAL OPERATIONS Patrice Tony MD - 06/07/2003 12:01 AM CST H&P signed by Patrice Tony MD at 06/18/03 0838 Author: Patrice Tony MD Service: (none) Author Type: Physician Filed: 09/03/10 1812 Note Time: 06/07/03 0001 Status: Signed Machine Setup Operator: Patrice Tony MD (Physician) NAME: LIZ LUNA MR: [id number] ACCT: [id number] VISIT: [id number] DICTATING CLINICIAN: PATRICE TONY MD JOB: [id number] CLINIC PHYSICAL DATE OF VISIT: 06/07/2003 SUBJECTIVE: : 1965. The patient comes in for preoperative physical for high grade lesion of cervix. Please see form for full details. OBJECTIVE: ASSESSMENT: Preoperative physical for high grade lesion of cervix. PLAN: Patient cleared for surgery. TT: CT: [id number] C: 06/07/03 15:50 DOCUMENT: [id number] CTOR CLINICAL OPERATIONS Phone Note, Clinician - 06/04/2003 12:01 AM CST Phone Note filed by Clinician Phone Note at 09/01/10 4186 Author: Clinician Phone Note Service: (none) Author Type: Resource Filed: 09/01/10 1304 Note Time: 06/04/03 0001 Status: Signed Machine Setup Operator: Clinician Phone Note (Resource) TO: KEE AHUMADA FROM: SAHIL STEVENS [phone] 06/04/03 * PROVIDER MESSAGE: RETURN * 10:23AM * CALL REQUESTED * MESSAGE: PT HAVING SURGERY ON 06/12. * HOME PHONE:[phone] * HOW MANY DAYS WILL SHE NEED OFF * WORK PHONE:[phone] * WORK * CONTACT PHONE:[phone] * SUBJECTIVE: ALLERGIES/SENSITIVITIES... NKDA 11/05/01 CURRENT MEDICATIONS... None 11/05/01 PERTINENT PAST HISTORY... Healthy, smoker 11/05/01 WEIGHT: ASSESSMENT: SURGERY PLAN: DISPOSITION: NO DISPOSITION GIVEN CALL BY SAHIL STEVENS 06/04/2003 10:22AM [phone] ADDENDUM: <> 06/04/2003 04:30PM by TESSA ALVES GAS JOCKEY: pt notified that she can probably resume normal activities the day aft er surgery. CTOR CLINICAL OPERATIONS Kee Ahumada MD - 05/21/2003 12:01 AM CST Progress Notes signed by Kee Ahumada MD at 05/21/03 1424 Author: Kee Ahumada MD Service: (none) Author Type: Physician Filed: 09/03/10 0865 Note Time: 05/21/03 0001 Status: Signed Machine Setup Operator: Kee Ahumada MD (Physician) NAME: LIZ LUNA MR: [id number] ACCT: [id number] VISIT: [id number] DICTATING CLINICIAN: KEE AHUMADA MD JOB: [id number] CLINIC PROGRESS NOTE DATE OF VISIT: 05/21/2003 SUBJECTIVE: The patient is a 37-year-old para 3-0-2-3 with an LMP sometime in April. She had an annual exam with Dr. Tony on 04/25 at which time her Pap smear showed a high grade lesion. She apparently has a history of abnormal Pap smears in the past. She has had repeat Pap smears as routine followup for these. She has had colposcopies but has not had any specific treatment for dysplasia. OBJECTIVE: A colposcopy was performed with the nurse present in the room. Exam was satisfactory. No abnormal acetowhite epithelium was noted and endocervical curettage was done. ASSESSMENT: High grade lesion on Pap. Unremarkable colposcopy. PLAN: ECC was done; we will notify the patient of results when available. Would anticipate recommending a LEEP procedure for definitive diagnosis and treatment. FINAL IMPRESSION: Colposcopy. TT: CT: [id number] C: 05/21/03 13:40 DOCUMENT: [id number] CTOR CLINICAL OPERATIONS documented in this encounter Plan of Treatment Upcoming Encounters Date Type Specialty Care Team Description 06/15/2022 Appointment Orthopedics Vanna Ulloa MD [address] [facility] [place] [address] (Wo rk) documented as of this encounter Procedures Procedure Name Priority Date/Time Associated Diagnosis Comme nts MM MAMMOGRAM Routine 05/29/2003 11:00 AM Results for this SCREENING W CAD DIRECTOR CLINICAL OPERATIONS procedure ar e in the results section. documented in this encounter Results MM Mammogram Screening W CAD (05/29/2003 11:00 AM DIRECTOR CLINICAL OPERATIONS) Anatomical Region Laterality Modality Breast Bilateral Mammography Specimen (Source) Anatomical Location Collection Method / Collectio n Time Received Time / Laterality Volume Impressions 05/29/2003 11:00 AM DIRECTOR CLINICAL OPERATIONS : ?? NO MAMMOGRAPHIC EVIDENCE OF MALIGNAN CY. ACR-BIRADS CATEGORY 1: ??NEGATIVE. FINDINGS: C3 ?? FILMS WERE SCANNED BY A COMPUTER AID ED DETECTION UNIT FOR A ?? SECOND READING. ?? THE BREASTS ARE MILDLY TO MODERATELY DENSE. ??THIS MAY LOWER THE ?? SENSITIVITY OF MAMMOGRAPHY. ??THERE ARE NO SUSPICIOUS MASSES OR ?? CALCIFICATIONS. SEVERITY: 1 Narrative 05/29/2003 11:00 AM DIRECTOR CLINICAL OPERATIONS CLINICAL DATA: BASELINE/ Procedure Note Uzma Jacky - 07/19/2016 CLINICAL DATA: BASELINE/ IMPRESSION : NO MAMMOGRAPHIC EVIDENCE OF MALIGNANCY. ACR-BIRADS CATEGORY 1: NEGATIVE. FINDINGS: C3 FILMS WERE SCANNED BY A COMPUTER AIDED DETECTION UNIT FOR A SECOND READING. THE BREASTS ARE MILDLY TO MODERATELY DE NSE. THIS MAY LOWER THE SENSITIVITY OF MAMMOGRAPHY. THERE ARE N O SUSPICIOUS MASSES OR CALCIFICATIONS. SEVERITY: 1 Patrice Tony MD RAD TERESA documented in this encounter Visit Diagnoses Not on filedocumented in this encounter Care Teams Computer Systems Technology Instructor Relationship Specialty Start Date End Date Md Garcia MD PCP - General 08/16/10 01/17/12 [place] [address] documented as of this encounter
--- OUTSIDE RECORDS SUMMARY | 2022-04-22 14:12 | XMS_ITS | Clinical Summary ---
:1965 Author Organization [facility] [place] [address] Care Team Providers Name Role Phone Sonia Pérez Primary Care Provider Allergies Active Allergy Reactions Severity Noted Date Comments Atorvastatin Myalgia 09/22/2016 Exenatide Microspheres Rash 08/05/2015 Red s pots on abdomen Hydromorphone Other - Describe In 12/11/2021 Nausea/ Vomiting. Pt Comment Field stated was adm itted to hospital after taking Dilaudid due to uncontrollable N/V Dulaglutide Nausea Only, GI 11/20/2018 Upset Medications Medication Sig Dispensed Refills Start End Status Date Date omeprazole Take 20 mg by 0 Activ e (PRILOSEC) 20 mg mouth once daily Delayed-Release before a meal. capsule aspirin (ECOTRIN) Take 81 mg by 0 05/07/20 Active 81 mg enteric mouth once 13 coated tablet daily. folic acid 1 mg Take 1 tablet by 0 12/02/19 Active tablet mouth once 17 daily. coenzyme q10 100 mg Take 1 capsule 0 12/02/19 Active cap by mouth once 17 daily. Zanbnpo-Xtmpttzlp-V Take 1 tablet by 0 02/16/20 Active inc tab mouth once 17 daily. lancets Use as 0 12/04/19 Active instructed 3 15 times daily. omega-3 acid ethyl Take 1 g by 0 04/25/20 Active esters mouth once 09 (LOVAZA;OMACOR) 1 daily. gram capsule multivitamin (MVI) Take 1 tablet by 0 12/01/19 Active tablet mouth once 17 daily. famotidine (PEPCID) Take 20 mg by 0 02/07/20 Active 20 mg tablet mouth 2 times 20 daily if needed. prochlorperazine Take 1 Tablet 15 Tablet 0 01/29/20 Active (COMPAZINE) 10 mg (10 mg) by mouth 21 tabletIndications: every 6 hours if Abdominal pain, needed for unspecified Nausea/Vomiting abdominal location, or Other Acute (Specify) nonintractable (Headache). headache, unspecified headache type Blood-Glucose Meter Use as 1 Each 0 02/28/20 Active (Accu-Chek Jossy instructed as 21 Plus needed for High Meter)Indications: Blood Sugar. Controlled type 2 diabetes mellitus without complication, without long-term current use of insulin (HC) albuterol HFA Inhale 1-2 Puffs 18 g 3 03/30/20 Active (Ventolin HFA) 90 by mouth every 4 21 mcg/actuation hours if needed. inhalerIndications: Viral URI with cough pen needle, For 100 Each 3 06/10/19 Active diabetic (BD administering 22 Insulin Pen Needle insulin at home. UF) 31 gauge x 5/16Indications: Type 2 diabetes mellitus with other specified complication, with long-term current use of insulin (HC) rosuvastatin Take 1 Tablet 90 Tablet 3 07/13/19 Act sophia (CRESTOR) 10 mg (10 mg) by mouth 22 tabletIndications: at bedtime. Hyperlipidemia with target LDL less than 70 fluticasone (50 mcg SHAKE LIQUID AND 48 g 3 07/28/19 Active per actuation) USE 2 SPRAYS IN 22 nasal solution EACH NOSTRIL (FLONASE)Indication ONCE DAILY s: Rhinitis, unspecified type blood sugar Dispense item 100 Each 11 07/29/19 Acti ve diagnostic covered by pt 22 (Accu-Chek Jossy ins. E11.9 NIDDM Plus test strp) type II - Test 3 stripIndications: times/day, Controlled type 2 Reason: High A1C diabetes mellitus without complication, without long-term current use of insulin (HC) FreeStyle Maricel 2 To be used to 1 Each 0 12/15/19 Active ReaderIndications: read blood 22 Type 2 diabetes sugars per mellitus with other credit processor's specified directions. complication, with long-term current use of insulin (HC) FreeStyle Maricel 2 To be used to 6 Each 3 12/15/19 Active SensorIndications: read blood 22 Type 2 diabetes sugars per mellitus with other credit processor's specified directions. complication, with long-term current use of insulin (HC) ibuprofen (ADVIL; Take 400 mg by 0 12/15/19 Active MOTRIN) 200 mg mouth every 6 22 tablet hours if needed. pregabalin (LYRICA) TAKE 1 90 Capsule 0 01/21/20 Active 25 mg CAPSULE(25 MG) 22 capsuleIndications: BY MOUTH AT Diabetic peripheral BEDTIME neuropathy (HC) ARIPiprazole Take 1 Tablet (5 30 Tablet 3 01/29/20 Active (ABILIFY) 5 mg mg) by mouth 22 tabletIndications: once daily. Depression, unspecified depression type desvenlafaxine Take 1 Tablet 30 Tablet 3 01/29/20 A ctive succinate (PRISTIQ) (100 mg) by 22 100 mg extended mouth every release morning. tabletIndications: Anxiety and depression LORazepam (ATIVAN) Take 1 Tablet 20 Tablet 2 01/29/20 Active 0.5 mg (0.5 mg) by 22 tabIndications: mouth 2 times Anxiety and daily if needed depression ( NEEDED). temazepam Take 1 Capsule 30 Capsule 3 01/29/20 Acti ve (RESTORIL) 30 mg (30 mg) by mouth 22 capsuleIndications: at bedtime if Insomnia, needed for unspecified type Sleep. gabapentin TAKE 3 270 Capsule 0 03/02/20 Active (NEURONTIN) 400 mg CAPSULES(1200 22 capsuleIndications: MG) BY MOUTH Fibromyalgia, EVERY DAY Diabetic peripheral neuropathy (HC) lisinopriL TAKE 1 TABLET(20 90 Tablet 2 03/02/20 Ac tive (PRINIVIL; ZESTRIL) MG) BY MOUTH 22 20 mg EVERY DAY tabletIndications: Essential (primary) hypertension liraglutide Inject 1.8 mg 27 mL 0 03/16/20 Acti ve (Victoza 3-Darius) 0.6 subcutaneous 22 mg/0.1 mL (18 mg/3 once daily. mL) injectionIndication s: Type 2 diabetes mellitus with other specified complication, with long-term current use of insulin (HC) metFORMIN Take 3 Tablets 90 Tablet 0 03/26/20 Activ e (GLUCOPHAGE XR) 500 (1,500 mg) by 22 mg Extended-Release mouth once tabletIndications: daily. Controlled type 2 diabetes mellitus without complication, without long-term current use of insulin (HC) ondansetron (ZOFRAN Place 1 Tablet 10 Tablet 0 04/05/20 Active ODT) 4 mg (4 mg) on the 22 disintegrating tongue every 8 tabletIndications: hours if needed Vomiting and for diarrhea Nausea/Vomiting. acetaminophen Max 0 04/06/20 Active (TYLENOL) 325 mg acetaminophen 22 tablet dose: 4000mg in 24 hrs. ferrous sulfate, 65 OTC Iron-Dosage unsure 0 0 Active mg elemental, One tablet once daily 22 tablet ondansetron (ZOFRAN Place 1 Tablet 10 Tablet 0 02/26/2004/06 Discontinued ODT) 4 mg (4 mg) on the 21 022 (Dupli kelsey disintegrating tongue every 8 therapy tabletIndications: hours if needed (E-cancel not Nausea and vomiting for sent)) in adult Nausea/Vomiting. bisacodyL Take 5 mg by 0 Discont inued (DULCOLAX) 5 mg mouth once daily 022 (*Med tablet if needed complete/R egime (constipation). n complete/L evel of care [place]) metFORMIN TAKE 3 270 Tablet 0 12/24/19 Discontin ued (GLUCOPHAGE XR) 500 TABLETS(1500 MG) 22 022 mg Extended-Release BY MOUTH EVERY tabletIndications: DAY Controlled type 2 diabetes mellitus without complication, without long-term current use of insulin (HC) Hospital, Clinic, or Other Ordered Dose Route Frequency Start Date End Date Status Facility Administered Medication levonorgestrel intrauterine 1 Device IU Q 5 YEARS 11/03/2016 Active device 1 Device (MIRENA)Indications: Excessive and frequent menstruation, Encounter for insertion of mirena IUD Active Problems Problem Noted Date Intractable nausea and vomiting 11/30/2021 Long-term insulin use 07/13/2021 Type 2 diabetes mellitus, with long-term current use o f insulin 07/13/2021 Diabetic peripheral neuropathy 07/13/2021 History of COVID-19 03/30/2021 Overview: 01/2021 Diabetic gastroparesis 09/28/2017 Controlled substance agreement signed 05/24/2017 Overview: Controlled substance agreement for Sebastian bustamante and Curtis on file and signed 05/24/2017. Designated [facility]: [email or web address] [phone] Prescribing physician:Taryn Colon CNP. Diagnosis: Insomn ia, anxiety and depression Demetria Francisco isser .................... 05/24/2017 4:10 PM Excessive and frequent menstruation 03/17/2016 Morbid (severe) obesity due to excess calories 014 Essential (primary) hypertension 08/18/2010 Major depressive disorder with single episode 10/16/19 Overview: Overview: LW Onset: Obstructive sleep apnea syndrome 08/03/2005 Overview: Not on CPAP currently Chronic rhinitis 08/03/2005 Gastroesophageal reflux disease 02/11/2004 Hyperlipidemia 02/11/2004 Esophageal reflux 02/11/2004 Overview: Overview: Gastroesophageal Reflux Disease Resolved Problems Problem Noted Date Resolved Date Lactic acidosis 02/13/2020 09/03/2020 Suspected 2019 novel coronavirus infection 02/13/2020 09/03/2020 JOSE CRUZ (acute kidney injury) 02/13/2020 09/03/2020 Screening for colon cancer, rpt in 202808/15/2018 09/13/2018 Overview: Normal, rpt in 2028 Obesity, Class II, BMI 35-39.9 09/28/2017 Nausea & vomiting 11/24/2016 09/28/2017 Severe obesity (BMI 35.0-35.9 with comorbidity) 10/14/2016 09/28/2017 Biliary dyskinesia 09/27/2016 09/28/2017 Gastroenteritis, acute 05/15/2016 09/17/2016 Anxiety and depression 07/30/2015 12/24/2020 Controlled type 2 diabetes mellitus without complication 07/201307/13/2021 Overview: Dx 2005 Colon cancer screening 09/13/2018 Encounters Date Type Specialty Care Team Description 04/09/2022 Office Visit Shanti Aly (removal ) Anurag Monge MD 04/09/2022 Travel 04/06/2022 Ancillary Procedure 04/06/2022 Office Visit Sonia Pérez, Hospital F /U (D[facility] PA 03/19-[facility] Piter iverson (Can last sever al hours, has to p ut ice pack on back of neck to help, taking OT C pain meds to help) 04/05/2022 Emergency Gwyn Lilly Vomiting and diarrhea MD Eva (Primary Dx) 04/05/2022 Travel 03/24/2022 Refill Sonia Pérez, Refill Req uest ROBERT (Metformin) 03/19/2022 - Emergency MarybethRenee pritchard Migraine wi thout status migrainosus, not intractable, unspecified migraine type (Primary Dx); 03/20/2022 MD Eva Nausea and vomi ting, unspecified vomiting type; Type 2 diabetes mellitus with other specified complication, with long-term current use of insulin (HC); Essential (prim kandice) hypertension 03/19/2022 Nurse Triage Sonia Pérez, High Blood Sugar PA 03/15/2022 Refill Sonia Pérez, Refill Req uest (Victoza PA 3-darius) 03/10/2022 Refill Sonia Pérez, Refill Req uest (Bd PA Insulin Pen Nee dle Uf) 03/01/2022 Refill Sonia Pérez, Refill Req uest ROBERT (Gabapentin, Lisinopril) 01/30/2022 Refill BadSonia saleem, Refill Req uest (Victoza PA 3-darius) 01/29/2022 Telephone ServiceVangie Prior Auth orization MD Jero (desvenlafaxine succinate (DREAD TIQ) 100 mg extended rel ease tablet (APPROVE D 12/29/2021-01/14)) 01/28/2022 Office Visit ServiceVangie Follow Up; Nayeli Nogueira MD Management 01/28/2022 Travel from Last 3 Months Immunizations Name Administration Dates Next Due COVID-19 vaccine (Moderna 08/20/2020, 07/24/2020 100mcg/0.5mL) DENILSON BURGOS COVID-19 vaccine (Moderna Booster 07/13/2021 50mcg/0.25mL) PF, MDV Hepatitis B (Adult) 10/15/2020, 02/21/2020, 11/30/2019 Influenza Virus, Unspecified 02/05/2009, 03/16/2008, 003 Influenza, IIV3 (Age 6-35 mos) 02/24/2015, 02/18/2012 Influenza, IIV3 (Age >=3 years) 04/23/2011, 04/03/2010 Influenza, IIV4 04/06/2022, 03/30/2021, 02/21/2020, 05/18/2019, 03/13/2018, 03/28/2017, 03/15/2016, 02/19/2014 Influenza, IIV4 (Age 6-35 Mos) 05/07/2013 Pneumococcal Conj 20-valent (Prevnar 04/06/2022 20) Pneumococcal Poly,23-Valent 02/05/2009 (Pneumovax) Td (Age >=7 Years) 01/21/1997 Tdap 09/17/2016, 11/04/2006 Tuberculin Skin Test, Unspecified 09/13/2006 Zoster (Shingrix-RZV, recombinant) 03/30/2021 Family History Medical History Relation Name Comments PTSD Brother Diabetes Maternal Grandfather Diabetes Mother Other Mother non hodgkins lym phoma, alzheimers Heart attack Paternal Grandfather Lung cancer Paternal Grandmother Cancer-breast No Family History Cancer-ovarian No Family History Relation Name Status Comments Brother Alive Father Alive Maternal Grandfather Mother Paternal Grandfather Paternal Grandmother Social History Tobacco Use Types Packs/Day Years Used Date Former Smoker Cigarettes 1.2 19 Quit: 03/02/20 08 Smokeless Tobacco: Never Used Tobacco Cessation: Counseling Given: Yes Alcohol Use Standard Drinks/Week Comments Yes 0 (1 standard drink = 0.6 oz pure alcoho l) occasional Alcohol Habits Answer Date Recorded How often do you have a drink containing alcohol? Monthly or less 01/12/2019 How many drinks containing alcohol do you have on a 1 or 2 08/28/2018 typical day when you are drinking? How often do you have six or more drinks on one Not asked occasion? Comment: occasional 04/09/2022 Sex Assigned at Date Recorded Not on file COVID-19 Exposure Response Date Recorded In the last 10 days, have you been in contact No / Unsure 04/09/2022 11:30 AM [facility] with someone who was confirmed or suspected to have Coronavirus/COVID-19? Obstetrics History Last Filed Vital Signs Vital Sign Reading Time Taken Comments Blood Pressure 114/78 04/09/2022 11:37 AM [facility] Pulse 90 04/09/2022 11:37 AM [facility] Temperature 36.7 ??C (98.1 ??F) 04/05/2022 9:43 AM [facility] Respiratory Rate 18 04/05/2022 9:43 AM [facility] Oxygen Saturation 93% 04/05/2022 11:53 AM [facility] Inhaled Oxygen Concentration - - Weight 111.6 kg (246 lb) 04/06/2022 10:47 AM [facility] Height 167.6 cm (5' 6) 04/05/2022 9:43 AM [facility] Body Mass Index 39.71 04/05/2022 9:43 AM [facility] Plan of Treatment Upcoming Encounters Date Type Specialty Care Team Description 05/06/2022 Appointment Health Maintenance Due Date Last Done Comments Zoster (shingles) series for age 0105/25/2021 03/30/2021 50+ (2 of 2) COVID-19 vaccine series (4 - 09/07/2021 07/13/2021, 021, Booster for Moderna series) 07/24/2020 Mammogram for age 45-75 04/14/2022 04/14/2021, 12/25/2019, 08/01/2018, Additional history exists Low Dose CT (for lung CA) age 0711/30/2022 11/30/2021 50-80 BMI (ht and wt on same day) for 01/28/2023 01/28/2022, 11/14, age 18+ 12/07/2021, Additional history exists Depression screening for age 12+ 01/29/2023 01/29/2022, , 09/29/2021, Additional history exists Pap test for age 21-65 07/20/2023 07/19/2018, 07/19/2018, 02/24/2015 ([facility]) Lipids for age 45-75 07/13/2026 07/13/2021, 05/21/2020, 05/18/2019, Additional history exists Tetanus booster 09/17/2026 09/17/2016, 11/04/2006, 01/21/1997 Colonoscopy through age 75 08/15/2028 08/15/2018 Tdap Completed 09/17/2016, 11/04/2006 Hepatitis B series for Diabetes Completed 10/15/2020, 12/2019, 11/30/2019 HIV for age 15-65 Completed 04/06/2022 Hepatitis C screening for age Completed 04/06/2022 18-79 Influenza for age 50-64 Completed 04/06/2022, 03/30/2021, 02/21/2020, Additional history exists Pneumococcal series for age 19-64 Completed 04/06/2022, Procedures Procedure Name Priority Date/Time Associated Diagnosis Comme nts HEMOGLOBIN A1C Routine 04/06/2022 11:55 Type 2 diabetes Result s for this AM [employer] [facility] mellitus with other procedur e are in specified complication, the results with long-term current secti on. use of insulin (HC) ANTI HCV Add On 04/06/2022 11:55 Need for hepatitis C Res ults for this AM [employer] [facility] screening test procedure are in the results section. ANTI HIV 1/2 Add On 04/06/2022 11:55 Screening for HIV Result s for this AM [facility] (human immunodeficiency proc edure are in virus) the results section. XR SPINE CERVICAL 3 Routine 04/06/2022 11:39 Neck pain Resu lts for this VIEWS AM [facility] procedure are i n the results section. LACTATE VENOUS STAT 04/05/2022 10:28 Results f or this AM [facility] [employer] [facility] procedure are i n the results section. LIPASE STAT 04/05/2022 10:28 Results for this AM [facility] procedure are i n the results section. HEPATIC FUNCTION STAT 04/05/2022 10:28 Results for this PANEL AM [facility] procedure are i n the results section. BASIC METABOLIC STAT 04/05/2022 10:28 Results for this PANEL AM [facility] procedure are i n the results section. CBC W PLT NO DIFF STAT 04/05/2022 10:28 Result s for this AM [facility] [employer] [facility] procedure are i n the results section. URINE CULTURE RENAE 03/20/2022 12:57 Results fo r this AM CDT procedure are i n the results section. URINALYSIS STAT 03/20/2022 12:57 Results for this MICROSCOPIC AM CDT procedure are i n the results section. UA W/ SEDIMENT EXAM STAT 03/20/2022 12:57 Resu lts for this REFLEXED PER AM CDT procedure are i n CRITERIA the results section. EKG 12 LEAD STAT 03/20/2022 12:54 Results for this AM CDT procedure are i n the results section. XR CHEST 2 VIEWS PA STAT 03/20/2022 12:35 Resu lts for this AND LATERAL AM CDT procedure are i n the results section. CBC WITH AUTO STAT 03/19/2022 11:37 Results fo r this DIFFERENTIAL PM CDT procedure are i n the results section. TROPONIN I STAT 03/19/2022 11:37 Results for this PM CDT procedure are i n the results section. LIPASE STAT 03/19/2022 11:37 Results for this PM CDT procedure are i n the results section. COMP METABOLIC PANEL STAT 03/19/2022 11:37 Res ults for this PM CDT procedure are i n the results section. CBC WITH AUTO STAT 03/19/2022 11:37 Results fo r this DIFFERENTIAL PM CDT procedure are i n the results section. COVID 19 STAT 03/19/2022 11:26 Results for this PM CDT procedure are i n the results section. INFLUENZA A/B PCR STAT 03/19/2022 11:26 Result s for this PM CDT procedure are i n the results section. COVID 19 COLLECTION STAT 03/19/2022 11:26 Resu lts for this PM CDT procedure are i n the results section. from Last 3 Months Results (ABNORMAL) ANTI HCV (04/06/2022 11:55 AM [facility]) [facility] Method Time Signature HEPATITIS C Equivocal (A) Non-React 04/09/2022 [facility] ANTIBODY sophia 7:20 AM [facility] Comment: Equivocal; Reflexed to HCV RNA Quant (See separate report). Specimen Anatomical Collection Method / Collection Time Recei uday Time (Source) Location / Volume Laterality Blood BLOOD SPECIMEN / Venipuncture / 04/06/2022 11:55 04/06 Unknown Unknown AM [facility] 11:56 AM [facility] Sonia JONES SEND OUTS Performing Organization Address City/State/ZIP Code Phon e Number [facility] [address] [place] [address] [facility]AT[facility] LABORATORY ANTI HIV 1/2 [26366.0] (04/06/2022 11:55 AM [facility]) [facility] Method Time Signature HIV-1/HIV-2 Non-Reacti Non-Reacti 04/08/2022 [facility] ANTIBODY ve ve 11:13 AM [facility] Comment: HIV-1 p24 and HIV-1/HIV-2 Ab no t detected. Specimen Anatomical Collection Method / Collection Time Recei uday Time (Source) Location / Volume Laterality Blood BLOOD SPECIMEN / Venipuncture / 04/06/2022 11:55 04/06 Unknown Unknown AM [facility] 11:56 AM [facility] Sonia JONES [employer] Performing Organization Address City/State/ZIP Code Phon e Number [facility] [address] [place] [address] LAB[facility]ATORY[facility] LABORATORY (ABNORMAL) HEMOGLOBIN A1C MONITORING (POCT) (04/06/2022 11:55 AM [facility] [facility]) athologist Signature HEMOGLOBIN A1C 7.4 (H) <=6.4 % 04/06/2022 [facility] MONITORING 12:12 [address] [facility] (POCT) CENTER Specimen Anatomical Collection Method / Collection Time Recei uday Time (Source) Location / Volume Laterality Blood BLOOD SPECIMEN / Venipuncture / 04/06/2022 11:55 04/06 Unknown Unknown AM [facility] 11:56 AM [facility] Narrative [facility] - 022 12:12 PM [facility] [employer] [facility] ? (<=6.9%) ? Indicates good control ? (7.0% to 7.9%) ? Indicates fa ir control ? (>=8.0%) ? Indicates poor control ?? NOTE: ??These thresholds are guideli andre and ?individual targets may va ry. Falsely low levels may be seen with: Recent Transfusion, Recent Significant B lood Loss, Hemolytic Diseases, or Falsely elevated levels may be seen with : Untreated Anemias, Splenectomy ? Sonia JONES CHEMISTRY Performing Organization Address City/State/ZIP Code Phon e Number [place] [id number] [place] [address] CENTER XR SPINE CERVICAL 3 VIEWS (04/06/2022 11:39 AM [employer] [employer] [facility]) Anatomical Region Laterality Modality CERVICAL SPINE Computed Radiography Specimen (Source) Anatomical Collection Method Collection Time Re ceived Time Location / / Volume Laterality 04/06/2022 5:19 PM [facility] Narrative 04/06/2022 5:19 PM [employer] [employer] [facility] For Patients: ??As a result of the Cures Act, medical imaging exams and procedure report s are released immediately into your [employer] medical record. ??You may view this report before your referring provider. ??If you have questions, please contact your health care provider. CLINICAL INDICATION: Neck pain. FINDINGS: There is small multilevel anterior silke nal osteophytes. There is mild narrowing of the C5-6 and C6-7 intervertebral disc spaces. There is reversal of the cervical lordosis that may be due to muscle spa sm. No other bone, disc or joint abnorma lity is identified. There is normal alignment of the cervicothoracic junction. There is no fracture or dislocation. Dictated by Tomas Carrillo MD @ Apr 06 2022 ??5:19PM (Electronically Signed) ?? Procedure Note Tomas Carrillo MD - 2 For Patients: As a result of the Cures Act, medical imaging exams and procedure reports are released immediately into your electronic medical record. You may view this report before your referring provider. If you have questions, please contact [facility] health care provider. CLINICAL INDICATION: Neck pain. FINDINGS: There is small multilevel anterior silke nal osteophytes. There is mild narrowing of the C5-6 and C6-7 intervertebral disc spaces. There is reversal of the cervical lordosis that may be due to muscle spasm. No other bone, disc or joint abnormality is identified. There is normal alignment of the cervicothoracic junction. There is no fracture or dislocation. Dictated by Tomas Carrillo MD @ Apr 06 2022 5:19PM (Electronically Signed) Sonia Kimberly Badali PA GENERAL IMAGING LACTATE VENOUS (04/05/2022 10:28 AM [facility]) P athologist Signature LACTATE,VENOUS 1.9 0.5 - 2.0 04/05/2022 [facility] mmol/L 11:15 AM [facility] CENTER Specimen Anatomical Collection Method Collection Time Receive d Time (Source) Location / / Volume Laterality Blood BLOOD SPECIMEN / IV Start / Unknown 04/05/2022 10:28 1 06/05/2021 Unknown AM [facility] 10:37 AM [facility] Gwyn Lilly MD CHEMISTRY Performing Organization Address City/State/ZIP Code Phon e Number [facility] [address] [place] [address] CENTER (ABNORMAL) CBC W PLT NO DIFF (04/05/2022 10:28 AM [facility] [employer] [facility]) Analysis Performed At Patho logist Time Signature WHITE BLOOD 8.2 4.5 - 11.0 04/05/2022 [facility] COUNT thou/cu mm 10:41 AM [facility] RED BLOOD COUNT 5.32 (H) 4.00 - 04/05/2022 [facility] 5.20 10:41 AM [facility]/cu mm CENTER HEMOGLOBIN 15.6 12.0 - 04/05/2022 [facility] 16.0 g/dL 10:41 AM [facility] HEMATOCRIT 46.7 33.0 - 04/05/2022 [facility] 51.0 % 10:41 AM [facility] MCV 88 80 - 100 04/05/2022 [facility] fL 10:41 AM [facility] MCH 29.3 26.0 - 04/05/2022 [facility] 34.0 pg 10:41 AM [facility] MCHC 33.4 32.0 - 04/05/2022 [facility] 36.0 g/dL 10:41 AM [facility] RDW 12.9 11.5 - 04/05/2022 [facility] 15.5 % 10:41 AM [facility] PLATELET COUNT 301 140 - 440 04/05/2022 [facility] thou/cu mm 10:41 AM [facility] MPV 9.4 6.5 - 11.0 04/05/2022 [facility] fL 10:41 AM [facility] NRBC 0.0 % 04/05/2022 [facility] 10:41 AM [facility] ABS NRBC 0.0 thou /cu 04/05/2022 [facility] mm 10:41 AM [facility] Specimen Anatomical Collection Method Collection Time Receive d Time (Source) Location / / Volume Laterality Blood BLOOD SPECIMEN / IV Start / Unknown 04/05/2022 10:28 1 06/05/2021 Unknown AM [facility] 10:37 AM [facility] Gwyn Lilly MD HEMATOLOGY Performing Organization Address City/[facility]/ZIP [facility] Phon e Number [address] [address] CENTER LIPASE (04/05/2022 10:28 AM [facility] [facility])Only the most recent of2 resultswithin the time period is included. athologist Signature LIPASE 54.0 8.0 - 78.0 04/05/2022 [facility] IU/L 11:23 AM [facility] Specimen Anatomical Collection Method Collection Time Receive d Time (Source) Location / / Volume Laterality Blood BLOOD SPECIMEN / IV Start / Unknown 04/05/2022 10:28 1 06/05/2021 Unknown AM [facility] 10:37 AM [facility] Gwyn Lilly MD CHEMISTRY Performing Organization Address City/[facility] Phon e Number [address] [address] [place] HEPATIC FUNCTION PANEL (04/05/2022 10:28 AM [facility] [employer] [facility]) P athologist Signature ALBUMIN 4.5 3.5 - 5.2 04/05/2022 [facility] g/dL 11:22 AM [employer] [facility] PROTEIN,TOTAL 7.8 6.0 - 8.0 04/05/2022 [facility] g/dL 11:22 AM [facility] CENTER GLOBULIN 3.3 2.0 - 3.7 04/05/2022 [facility] g/dL 11:22 AM [facility] CENTER A/G RATIO 1.4 1.0 - 2.0 04/05/2022 [facility] 11:22 AM [facility] [employer] [facility] BILIRUBIN,TOTAL 0.6 0.2 - 1.2 04/05/2022 [facility] mg/dL 11:22 AM [employer] [facility] BILIRUBIN,DIRECT 0.2 0.1 - 0.5 04/05/2022 [facility] mg/dL 11:22 AM [employer] [facility] BILIRUBIN,INDIRE 0.4 0.2 - 0.8 04/05/[address] [facility] [address] mg/dL 11:22 AM [facility] ALK PHOSPHATASE 59 50 - 136 04/05/2022 [facility] IU/L 11:22 AM [facility] ALT (SGPT) 37 8 - 45 04/05/2022 [facility] IU/L 11:22 AM [facility] AST (SGOT) 29 2 - 40 04/05/2022 [facility] IU/L 11:22 AM [facility] Specimen Anatomical Collection Method Collection Time Receive d Time (Source) Location / / Volume Laterality Blood BLOOD SPECIMEN / IV Start / Unknown 04/05/2022 10:28 1 06/05/2021 Unknown AM [facility] [employer] [facility] 10:37 AM [employer] [employer] [facility] Gwyn Lilly MD CHEMISTRY Performing Organization Address City/State/ZIP Code Phon e Number [place] [id number] [place] [address] CENTER (ABNORMAL) BASIC METABOLIC PANEL (04/05/2022 10:28 AM [facility]) P athologist Signature SODIUM 137 135 - 145 04/05/2022 [facility] mmol/L 11:20 AM [facility] POTASSIUM 4.0 3.5 - 5.0 04/05/2022 [facility] mmol/L 11:20 AM [facility] CHLORIDE 102 98 - 110 04/05/2022 [facility] mmol/L 11:20 AM [facility] CO2,TOTAL 22 21 - 31 04/05/2022 [facility] mmol/L 11:20 AM [facility] ANION GAP 13 5 - 18 04/05/2022 [facility] 11:20 AM [facility] GLUCOSE 208 (H) 65 - 100 04/05/2022 [facility] mg/dL 11:20 AM [facility] CALCIUM 9.3 8.5 - 10.5 04/05/2022 [facility] mg/dL 11:20 AM [facility] BUN 14 8 - 25 04/05/2022 [facility] mg/dL 11:20 AM [facility] CREATININE 0.99 0.57 - 04/05/2022 [facility] 1.11 mg/dL 11:20 AM [facility] BUN/CREAT RATIO 14 10 - 20 04/05/2022 [facility] 11:20 AM [employer] [facility] eGFR 67 (L) >90 04/05/2022 [facility] mL/min/1.7 11:20 AM [facility] 3m2 CENTER Comment: As of 2021, eGFR is calcu lated by the CKD-EPI creatinine equation without race adjustment. eGFR can be inf luenced by muscle mass, exercise, and diet. The reported eGFR is an estimation only and is only applicable if the renal function is stable. Specimen Anatomical Collection Method Collection Time Receive d Time (Source) Location / / Volume Laterality Blood BLOOD SPECIMEN / IV Start / Unknown 04/05/2022 10:28 1 06/05/2021 Unknown AM [facility] [employer] [facility] 10:37 AM [employer] [employer] [employer] Gwyn Lilly MD CHEMISTRY Performing Organization Address City/[facility] Phon e Number [address] [address] CENTER (ABNORMAL) URINALYSIS MICROSCOPIC (03/20/2022 12:57 AM CDT) Analysis Performed At Patho logist Time Signature RBC 0-2 0-2, None 03/20/2022 [facility] Seen /HPF 1:25 AM CDT [facility] WBC 6-10 (A) 0-2, 3-5, 03/20/2022 [facility] None Seen 1:25 AM CDT [facility] /HPF CENTER BACTERIA Many (A) None Seen, 03/20/2022 [facility] Rare, Few 1:[address] [facility] Bacteria/H CENTER PF EPITHELIAL Many (A) None Seen, 03/20/2022 [facility] CELLS Few 1:[address] [facility] Epi/HPF CENTER Mucus Present 03/20/2022 [facility] 1:25 AM CDT [facility] Specimen Anatomical Collection Method Collection Time Receive d Time (Source) Location / / Volume Laterality Urine URINE SPECIMEN / Non-Blood / 03/20/2022 12:57 022 1:10 Unknown Unknown AM CDT AM CDT Renee Rueda MD URINE Performing Organization Address City/[facility]/ZIP [facility] Phon e Number [address] [address] CENTER URINE CULTURE (03/20/2022 12:57 AM CDT) Patholo gist Method Time Signature CULTURE 10-50,000 CFU/mL 03/22/2022 [facility] H of multiple 11:42 AM [facility] [facility] organisms, TRAL probable LABORATORY contaminants Specimen Anatomical Collection Method Collection Time Receive d Time (Source) Location / / Volume Laterality Urine URINE SPECIMEN / Non-Blood / 03/20/2022 12:57 022 1:10 Unknown Unknown AM CDT AM CDT Renee Rueda MD MICROBIOLOGY Performing Organization Address City/State/ZIP Code Phon e Number [facility] [address] [place] [address] LABORATORY-CENTRAL 2000 LABORATORY (ABNORMAL) Urinalysis W Reflex Microscopic if Positive (03/20/2022 12:57 AM CDT) [facility] Method Time Signature COLOR Yellow Yellow Color 03/20/2022 [facility] 1:14 AM CDT [facility] CLARITY Clear Clear 03/20/2022 [facility] Clarity 1:14 AM T [facility] SPECIFIC >=1.030 (A) 1.010, 03/20/2022 [facility] GRAVITY,URINE 1.015, 1:[address] [facility] 1.020, 1.025 CENTER PH,URINE 5.5 6.0, 7.0, 03/20/2022 [facility] 8.0, 5.5, 1:14 AM [facility] 6.5, 7.5, CENTER 8.5 UROBILINOGEN, Normal Normal EU/dl 03/20/2022 [facility] QUALITATIVE 1:14 AM [facility] PROTEIN, Trace (A) Negative 03/20/2022 [facility] URINE mg/dL 1:14 AM [facility] GLUCOSE, Negative Negative 03/20/2022 [facility] URINE mg/dL 1:14 AM [facility] KETONES,URINE Trace (A) Negative 03/20/2022 [facility] mg/dL 1:14 AM [facility] BILIRUBIN,URI Abnormal (A) Negative 03/20/2022 [facility] NE 1:14 AM [facility] Comment: A variety of metabolites and/or medications may result in a positive bilirubin result. Clinical correlation i s recommended. OCCULT BLOOD,URINE Negative Negative 03/20/2022 1:14 A M CDT [facility] NITRITE Negative Negative 03/20/2022 1:14 AM CDT [facility] LEUKOCYTE ESTERASE Negative Negative 03/20/2022 1:14 A M CDT [facility] Specimen Anatomical Collection Method Collection Time Receive d Time (Source) Location / / Volume Laterality Urine URINE SPECIMEN / Non-Blood / 03/20/2022 12:57 022 1:10 Unknown Unknown AM CDT AM CDT Renee Rueda MD URINE Performing Organization Address City/[facility]/ZIP [facility] Phon e Number [facility] [address] [place] [address] [place] EKG 12 Lead (03/20/2022 12:54 AM CDT) [facility] Method Time Signature Interpretation Normal sinus rhythm BEYON D NOW Normal ECG Ventricular Rate 72 BPM BEYOND NOW Atrial Rate 72 BPM BEYOND NOW P-R Interval 166 ms BEYOND NOW QRS Duration 94 ms BEYOND NOW QT 418 ms BEYOND NOW QTc 457 ms BEYOND NOW P [place] 1 degrees BEYOND NOW R [place] 51 degrees BEYOND NOW T [place] 15 degrees BEYOND NOW Specimen Anatomical Collection Method Collection Time Receive d Time (Source) Location / / Volume Laterality 03/20/2022 12:54 03/23/2022 AM CDT 12:54 PM [employer] Renee Rueda MD EKG ORD Performing Organization Address City/State/ZIP Code Phon e Number BEYOND NOW [place], [place] XR CHEST 2 VIEWS PA AND LATERAL (03/20/2022 12:35 AM CDT) Anatomical Region Laterality Modality CHEST, THORAX, Lung, HEART Digital Radio graphy Specimen (Source) Anatomical Collection Method Collection Time Re ceived Time Location / / Volume Laterality 03/20/2022 12:45 AM CDT Impressions 03/20/2022 12:45 AM CDT No sign of acute disease. Dictated by Gloria Armstrong MD @ 03/20/2022 1 2:45:12 AM (Electronically Signed) Narrative 03/20/2022 12:45 AM CDT For Patients: ??As a result of the Cures Act, medical imaging exams and procedure report s are released immediately into your [facility] medical record. ??You may view this report before your referring provider. ??If you have questions, please contact your health care provider. INDICATION: Headache and nausea TECHNIQUE: Chest 2 views. COMPARISON: Chest radiograph January 27, 2021, [facility] CT November 30, 2021 FINDINGS: Cardiovascular and mediastinum: ??Heart size and vasculature are normal in caliber and appearance. ??Mediastinum is within normal limits. ?? Lungs and pleural spaces: ??Lungs are cl ear. ??No sign of infiltrate or mass. ??No sign of pleural effusion. ??No pneumothorax. ?? Bones and soft tissues: ??No significant findings. ?? Procedure Note Gloria Armstrong MD - 03/20/2022Format ting of this note might be different from the original. For Patients: As a result of the ntury Cures Act, medical imaging exams and procedure reports are released immediately into your electronic medical record. You may view this report before your referring provider. If you have questions, please contact yo health care provider. INDICATION: Headache and nausea TECHNIQUE: Chest 2 views. COMPARISON: Chest radiograph January 27, 2021, [facility] st [place] November 30, 2021 FINDINGS: Cardiovascular and mediastinum: Heart si ze and vasculature are normal in caliber and appearance. Mediastinum is within normal limits. Lungs and pleural spaces: Lungs are nurys r. No sign of infiltrate or mass. No sign of pleural effusion. No pneumothorax. Bones and soft tissues: No significant f indings. IMPRESSION: No sign of acute disease. Dictated by Gloria Armstrong MD @ 03/20/2022 1 2:45:12 AM (Electronically Signed) Renee Rueda MD GENERAL IMAGING CBC WITH AUTO DIFFERENTIAL (03/19/2022 11:37 PM CDT) athologist Signature WHITE BLOOD 8.1 4.5 - 11.0 03/20/2022 [facility] COUNT thou/cu mm 12:33 AM CDT [facility] RED BLOOD COUNT 4.79 4.00 - 03/20/2022 [facility] 5.20 12:[address] [facility] mil/cu mm CENTER HEMOGLOBIN 14.2 12.0 - 03/20/2022 [facility] 16.0 g/dL 12:33 AM [facility] HEMATOCRIT 42.3 33.0 - 03/20/2022 [facility] 51.0 % 12:33 AM CDT [facility] MCV 88 80 - 100 03/20/2022 [facility] fL 12:33 AM CDT [facility] MCH 29.6 26.0 - 03/20/2022 [facility] 34.0 pg 12:33 AM CDT [facility] MCHC 33.6 32.0 - 03/20/2022 [facility] 36.0 g/dL 12:33 AM CDT [facility] RDW 13.2 11.5 - 03/20/2022 [facility] 15.5 % 12:33 AM CDT [facility] PLATELET COUNT 302 140 - 440 03/20/2022 [facility] thou/cu mm 12:33 AM CDT [facility] MPV 9.8 6.5 - 11.0 03/20/2022 [facility] fL 12:33 AM CDT [facility] NRBC 0.0 % 03/20/2022 [facility] 12:33 AM CDT [facility] ABS NRBC 0.0 thou /cu 03/20/2022 [facility] mm 12:33 AM CDT [facility] % NEUT 54.5 % 03/20/2022 [facility] 12:33 AM CDT [facility] % LYMPH 33.5 % 03/20/2022 [facility] 12:33 AM CDT [facility] % MONO 8.7 % 03/20/2022 [facility] 12:33 AM CDT [facility] % EOS 2.5 % 03/20/2022 [facility] 12:33 AM CDT [facility] % BASO 0.6 % 03/20/2022 [facility] 12:33 AM CDT [facility] % IMMATURE GRAN 0.2 % 03/20/2022 [facility] (METAS,MYELOS,IL 12:33 AM CDT [facility] OS) CENTER ABSOLUTE 4.4 1.7 - 7.0 03/20/2022 [facility] NEUTROPHILS thou/cu mm 12:33 AM CDT [facility] ABSOLUTE 2.7 0.9 - 2.9 03/20/2022 [facility] LYMPHOCYTES thou/cu mm 12:33 AM CDT [facility] ABSOLUTE 0.7 <0.9 03/20/2022 [facility] MONOCYTES thou/cu mm 12:33 AM CDT [facility] ABSOLUTE 0.2 <0.5 03/20/2022 [facility] EOSINOPHILS thou/cu mm 12:33 AM CDT [facility] CENTER ABSOLUTE 0.1 <0.3 03/20/2022 [facility] BASOPHILS thou/cu mm 12:33 AM CDT [facility] CENTER ABSOLUTE 0.0 <0.3 03/20/2022 [facility] IMMATURE thou/cu mm 12:33 AM CDT [facility] GRANULOCYTES(MET CENTER ,MYELOS,PROS) Specimen Anatomical Collection Method Collection Time Receive d Time (Source) Location / / Volume Laterality Blood BLOOD SPECIMEN / IV Start / Unknown 03/19/2022 11:37 1 05/20/2021 Unknown PM CDT 12:28 AM CDT Renee Rueda MD HEMATOLOGY Performing Organization Address City/[facility]/ZIP [facility] Phon e Number [place] [phone] CENTER Troponin 1, Quant (03/19/2022 11:37 PM CDT) P athologist Signature TROPONIN I <0.010 <0.034 03/20/2022 [facility] ng/mL 1:42 AM CDT [facility] Specimen Anatomical Collection Method Collection Time Receive d Time (Source) Location / / Volume Laterality Blood BLOOD SPECIMEN / IV Start / Unknown 03/19/2022 11:37 1 05/20/2021 Unknown PM CDT 12:28 AM CDT Renee Rueda MD CHEMISTRY Performing Organization Address City/State/ZIP [facility] Phon e Number [address] [address] CENTER (ABNORMAL) Complete Metabolic Panel (03/19/2022 11:37 PM CDT) Analysis Performed At Patho logist Time Signature SODIUM 142 135 - 145 03/20/2022 [facility] mmol/L 12:48 AM CDT [facility] CENTER POTASSIUM 4.1 3.5 - 5.0 03/20/2022 [facility] mmol/L 12:48 AM CDT [facility] CENTER CHLORIDE 107 98 - 110 03/20/2022 [facility] mmol/L 12:48 AM CDT [facility] CO2,TOTAL 21 21 - 31 03/20/2022 [facility] mmol/L 12:48 AM CDT [facility] CENTER ANION GAP 14 5 - 18 03/20/2022 [facility] 12:48 AM CDT [facility] CENTER GLUCOSE 115 (H) 65 - 100 03/20/2022 [facility] mg/dL 12:48 AM [facility] CALCIUM 9.4 8.5 - 10.5 03/20/2022 [facility] mg/dL 12:48 AM [facility] BUN 13 8 - 25 03/20/2022 [facility] mg/dL 12:48 AM [facility] CREATININE 0.80 0.57 - 03/20/2022 [facility] 1.11 mg/dL 12:48 AM [facility] BUN/CREAT RATIO 16 10 - 20 03/20/2022 [facility] 12:48 AM [facility] ALBUMIN 4.2 3.5 - 5.2 03/20/2022 [facility] g/dL 12:48 AM [facility] PROTEIN,TOTAL 7.5 6.0 - 8.0 03/20/2022 [facility] g/dL 12:48 AM [facility] GLOBULIN 3.3 2.0 - 3.7 03/20/2022 [facility] g/dL 12:48 AM [facility] A/G RATIO 1.3 1.0 - 2.0 03/20/2022 [facility] 12:48 AM [facility] BILIRUBIN,TOTAL 0.4 0.2 - 1.2 03/20/2022 [facility] mg/dL 12:48 AM [facility] ALK PHOSPHATASE 64 50 - 136 03/20/2022 [facility] IU/L 12:48 AM [facility] ALT (SGPT) 23 8 - 45 03/20/2022 [facility] IU/L 12:48 AM [facility] AST (SGOT) 23 2 - 40 03/20/2022 [facility] IU/L 12:48 AM [facility] eGFR 87 (L) >90 03/20/2022 [facility] mL/min/1.7 12:48 AM [place] [address] CENTER Comment: As of 2021, eGFR is calcu lated by the CKD-EPI creatinine equation without race adjustment. eGFR can be inf luenced by muscle mass, exercise, and diet. The reported eGFR is an estimation only and is only applicable if the renal function is stable. Specimen Anatomical Collection Method Collection Time Receive d Time (Source) Location / / Volume Laterality Blood BLOOD SPECIMEN / IV Start / Unknown 03/19/2022 11:37 1 05/20/2021 Unknown PM CDT 12:28 AM CDT Renee Rueda MD CHEMISTRY Performing Organization Address City/[facility]/ZIP Code Phon e Number [address] [address] CENTER COVID 19 (03/19/2022 11:26 PM CDT) [facility] Method Time Signature COVID 19 Not detected Not detected 03/20/2022 [facility] [place] 12:13 AM CDT [facility] Specimen Anatomical Location / Collection Method Collection Brandon e Received Time (Source) Laterality / Volume Other SPECIMEN FROM Non-Blood / 03/19/2022 11:26 03/19/2022 NASOPHARYNGEAL Unknown PM CDT 11:50 PM CDT STRUCTURE / Unknown Narrative [facility] - 022 12:13 AM CDT This test has been authorized by FDA und er an Emergency Use Authorization (EUA). This test is only authorized for the duration of time the declaration that circumstances exist justifying the authorization of th e emergency use of in vitro diagnostic tests for detection of SARS-CoV-2 virus and/or diagnosis of COVID-19 infection under section 564(b)(1) of the Act, 21 U.S.C. 360bbb-3(b) (1), unless the authorization is terminated or revoked sooner. Renee Rueda MD MICROBIOLOGY Performing Organization Address City/[facility]/ZIP Code Phon e Number [address] [address] [place] COVID 19 COLLECTION (03/19/2022 11:26 PM CDT) [facility] Method Time Signature TESTING [facility] 03/19/2022 [facility] LABORATORY Laboratory 11:50 PM CDT [facility] Comment: Specimen submitted to [facility] for testing. Specimen Anatomical Location / Collection Method Collection Brandon e Received Time (Source) Laterality / Volume Other SPECIMEN FROM Non-Blood / 03/19/2022 11:26 03/19/2022 NASOPHARYNGEAL Unknown PM CDT 11:46 PM CDT STRUCTURE / Unknown Renee Rueda MD SEND OUTS Performing Organization Address City/[facility] Phon e Number [facility] [address] [place] [address] CENTER INFLUENZA A/B PCR (03/19/2022 11:26 PM CDT) [facility] Method Time Signature INFLUENZA A NOT Detected 03/20/2022 [facility] PCR 12:13 AM CDT [facility] INFLUENZA B NOT Detected 03/20/2022 [facility] PCR 12:13 AM CDT [facility] Specimen Anatomical Location / Collection Method Collection Brandon e Received Time (Source) Laterality / Volume Other SPECIMEN FROM Non-Blood / 03/19/2022 11:26 03/19/2022 NASOPHARYNGEAL Unknown PM CDT 11:50 PM CDT STRUCTURE / Unknown Renee Rueda MD MICROBIOLOGY Performing Organization Address [facility] Phon e Number [facility] [address] [place] [address] CENTER from Last 3 Months Insurance Payer Benefit Plan / Subscriber ID Effective Dates Phone Addre ss [facility] [id number] 2016-Present [address] [place] [address] Advance Directives Latest Code Status on File Code Status Date Activated Date Inactivated Comments Full Code 11/30/2021 4:08 PM 12/01/2021 9:22 PM Code Status Discussion: Reviewed Preferences Full Code 02/13/2020 11:50 PM 02/15/2020 6:46 PM Code Status Discussion: Not Discussed Full Code 08/15/2018 10:18 AM 08/15/2018 3:08 PM Full Code 11/24/2016 5:58 PM 11/25/2016 4:47 PM Full Code 10/14/2016 5:00 PM 10/14/2016 8:29 PM Care Teams [employer] Supervisor Relationship Specialty Start Date End Date Sonia Pérez PA PCP - General Internal Medicine 11/24/16 [address] [facility] [address] [place] [address]
--- NOTE | 2022-04-22 15:45 | ED.NURSE ---
pt called in and wanted to have the ear antibiotic (Cipro-dexamethasone) covered under her insurance as this needs prior authorization. dr ghotra informed. dr ghotra will change the presciption.
== END 2022-04-22 13:54 | disposition home or self-care (01) ==
LOC: ED 13:54
PROVIDERS: Emergency Provider Emergency Medicine
DX: H60.92 Unspecified otitis externa, left ear (principal)
CPT/HCPCS: 87210; 99283

== ENCOUNTER 2023-10-10 20:56 | Outpatient (CLI) | payer MEDICAID, SELFPAY ==
--- OUTSIDE RECORDS SUMMARY | 2023-10-10 21:00 | XMS_ITS | Clinical Summary ---
Author Organization [facility] Address [place], [place] [address] Care Team Providers Care Security Systems Integrator Name Role Phone Sonia Pérez Primary Care Provider [phone] Allergies Active Allergy Reactions Criticality Noted Date Comments Atorvastatin Myalgia 09/22/2016 Exenatide Microspheres Rash 08/05/2015 Red spots on abdomen Hydromorphone Other - Describe In Comment Field 12/11/2021 Nausea/Vomiting. Pt stated was admitted to hospital after taking Dilaudid due to uncontrollable N/V Dulaglutide Nausea Only,GI Upset 11/20/2018 Medications Medication Sig Dispensed Refills Start Date End Date Status omeprazole (PRILOSEC) 20 mg Delayed-Release capsule Take 20 mg by mouth once daily before a meal. Active aspirin (ECOTRIN) 81 mg enteric coated tablet Take 81 mg by mouth once daily. 05/07/20 13 Active folic acid 1 mg tablet Take 1 tablet by mouth once daily. 0 12/02/19 17 Active coenzyme q10 100 mg cap Take 1 capsule by mouth once daily. 0 12/02/19 17 Active Calcium-Magnesium- Zinc tab Take 1 tablet by mouth once daily. 02/16/20 17 Active omega-3 acid ethyl esters (LOVAZA;OMACOR) 1 gram capsule Take 1 g by mouth once daily. 04/25/20 09 Active multivitamin (MVI) tablet Take 1 tablet by mouth once daily. 12/01/19 17 Active famotidine (PEPCID) 20 mg tablet Take 20 mg by mouth 2 times daily if needed. 02/07/20 20 Active ibuprofen (ADVIL; MOTRIN) 200 mg tablet Take 400 mg by mouth every 6 hours if needed. 12/15/19 22 Active acetaminophen (TYLENOL) 325 mg tablet Take 325 mg by mouth every 6 hours if needed for Pain. Max acetaminophen dose: 4000mg in 24 hrs. 0 04/06/20 Active albuterol HFA (Ventolin HFA) 90 mcg/actuation inhalerIndications :Viral URI with cough Inhale 1-2 Puffs by mouth every 4 hours if needed for Shortness Of Breath. 18 g 3 06/25/19 23 Active rosuvastatin (CRESTOR) 10 mg tabletIndications: Hyperlipidemia with target LDL less than 70 Take 1 Tablet (10 mg) by mouth once daily with evening meal. 90 Tablet 3 02/22/20 23 Active lisinopriL (PRINIVIL; ZESTRIL) 20 mg tabletIndications: Essential (primary) hypertension Take 1 Tablet (20 mg) by mouth once daily. 90 Tablet 1 02/22/20 23 Active Blood-Glucose Meter (Accu-Chek Jossy Plus Meter)Indications: Controlled type 2 diabetes mellitus without complication, without long-term current use of insulin (HC) Use as instructed as needed for High Blood Sugar when sensor is not working 1 Each 02/22/20 23 Active blood sugar diagnostic stripIndications:T ype 2 diabetes mellitus with other specified complication, with long-term current use of insulin (HC) Dispense item covered by pt ins. E11.9 NIDDM type II - Test 1 time/day 100 Each 03 02/23/20 23 Active gabapentin (NEURONTIN) 400 mg capsuleIndications :Diabetic peripheral neuropathy (HC),Fibromyalgia Take 3 Capsules (1,200 mg) by mouth once daily. 270 Capsule 1 02/25/20 23 Active pen needle, diabetic (BD Insulin Pen Needle UF) 31 gauge x 5/16Indications:T ype 2 diabetes mellitus with other specified complication, with long-term current use of insulin (HC) USE TO ADMINISTER INSULIN AT HOME. 100 Each 3 06/02/19 24 Active cyclobenzaprine (FLEXERIL) 10 mg tabletIndications: Acute right-sided low back pain without sciatica Take 0.5-1 Tablets (5-10 mg) by mouth 3 times daily if needed for Muscle Spasm. 30 Tablet 1 07/26/19 24 Active fluticasone (50 mcg per actuation) nasal solution (FLONASE) Inhale 1 [place] into affected nostril(s) once daily if needed for Rhinitis. Active lidocaine 4 % topical patch Apply 1 Patch on dry, clean, hairless skin every 24 hours if needed for Pain. Apply to intact skin to cover most painful area for max 12hr per 24hr period. Active ondansetron (ZOFRAN ODT) 4 mg disintegrating tabletIndications: Intractable nausea and vomiting Place 1 Tablet (4 mg) on the tongue every 8 hours if needed for Nausea/Vomiting. 12 Tablet 08/24/19 24 Active ARIPiprazole (ABILIFY) 5 mg tabletIndications: Depression, unspecified depression type Take 1 Tablet (5 mg) by mouth once daily. 30 Tablet 5 09/15/19 24 Active desvenlafaxine succinate (PRISTIQ) 100 mg extended release tabletIndications: Anxiety and depression Take 1 Tablet (100 mg) by mouth every morning. 90 Tablet 1 09/15/19 24 Active LORazepam (ATIVAN) 0.5 mg tabIndications:Anx iety and depression Take 1 Tablet (0.5 mg) by mouth 2 times daily if needed ( NEEDED). 20 Tablet 5 09/15/19 24 Active temazepam (RESTORIL) 30 mg capsuleIndications :Insomnia, unspecified type Take 1 Capsule (30 mg) by mouth at bedtime if needed for Sleep. 30 Capsule 5 09/15/19 24 Active metFORMIN (GLUCOPHAGE XR) 500 mg Extended-Release tabletIndications: Controlled type 2 diabetes mellitus without complication, without long-term current use of insulin (HC) Take 3 Tablets (1,500 mg) by mouth once daily. 270 Tablet 09/25/19 24 Active semaglutide (OZEMPIC) 2 mg/3 mL penIndications:Typ e 2 diabetes mellitus with other specified complication, with long-term current use of insulin (HC) Inject 0.75 mL (0.5 mg) subcutaneous once weekly. 9 mL 09/28/19 24 Active ARIPiprazole (ABILIFY) 5 mg tabletIndications: Depression, unspecified depression type Take 1 Tablet (5 mg) by mouth once daily. 30 Tablet 5 02/04/20 23 024 Discontinued(Re order (E-cancel not sent)) desvenlafaxine succinate (PRISTIQ) 100 mg extended release tabletIndications: Anxiety and depression Take 1 Tablet (100 mg) by mouth every morning. 90 Tablet 1 02/04/20 23 024 Discontinued(Re order (E-cancel not sent)) LORazepam (ATIVAN) 0.5 mg tabIndications:Anx iety and depression Take 1 Tablet (0.5 mg) by mouth 2 times daily if needed ( NEEDED). 20 Tablet 5 02/04/20 23 024 Discontinued(Re order (E-cancel not sent)) metFORMIN (GLUCOPHAGE XR) 500 mg Extended-Release tabletIndications: Controlled type 2 diabetes mellitus without complication, without long-term current use of insulin (HC) Take 3 Tablets (1,500 mg) by mouth once daily. 270 Tablet 1 07/07/19 24 024 Discontinued(*A vailability/For mulary change/Cost of medication) temazepam (RESTORIL) 30 mg capsuleIndications :Insomnia, unspecified type TAKE 1 CAPSULE(30 MG) BY MOUTH AT BEDTIME NEEDED FOR SLEEP 30 Capsule 08/05/19 24 024 Discontinued semaglutide (OZEMPIC) 2 mg/3 mL penIndications:Typ e 2 diabetes mellitus with other specified complication, with long-term current use of insulin (HC) Inject 0.75 mL (0.5 mg) subcutaneous once weekly. 3 mL 08/17/19 24 024 Discontinued(Re order (E-cancel not sent)) temazepam (RESTORIL) 30 mg capsuleIndications :Insomnia, unspecified type TAKE 1 CAPSULE BY MOUTH EVERY DAY AT BEDTIME NEEDED FOR SLEEP 30 Capsule 09/12/19 24 024 Discontinued(Re order (E-cancel not sent)) Active Problems Problem Noted Date Diagnosed Date Generalized abdominal pain 08/24/2023 Hypoxemia 08/24/2023 Metabolic acidosis 08/24/2023 Acute hyponatremia 08/24/2023 Hepatocellular injury 08/24/2023 Type 2 diabetes mellitus wit h hyperglycemia, without long-term current use of insulin 08/24/2023 Acute gastroenteritis 08/24/2023 Intractable nausea and vomiting 11/30/2021 Long-term insulin use 07/13/2021 Type 2 diabetes mellitus, wi th long-term current use of insulin 07/13/2021 Diabetic peripheral neuropathy 07/13/2021 History of COVID-19 03/30/2021 Overview: 01/2021 Diabetic gastroparesis 09/28/2017 Controlled substance agreement signed 05/24/2017 Overview: Controlled substance agreement for Lunesta and Ativan on file and signed 05/24/2017. [phone] Prescribing physician:Taryn Colon CNP. Diagnosis: Insomnia, anxiety and depression Demetria Proctor .................... 05/24/2017 4:10 PM Excessive and frequent menstruation 03/17/2016 Morbid (severe) obesity due to excess calories 1 06/19/2013 Essential (primary) hypertension 08/18/2010 Major depressive disorder with single episode Overview: Overview: LW Onset: Obstructive sleep apnea syndrome 08/03/2005 Overview: Not on CPAP currently Chronic rhinitis 08/03/2005 Gastroesophageal reflux disease 02/11/2004 Hyperlipidemia 02/11/2004 Esophageal reflux 02/11/2004 Overview: Overview: Gastroesophageal Reflux Disease Resolved Problems Problem Noted Date Diagnosed Date Resolved Date Lactic acidosis 02/13/2020 09/03/2020 Suspected 2019 novel coronavirus infection 02/13/2020 09/03/2020 JOSE CRUZ (acute kidney injury) 02/13/2020 Screening for colon cancer, rpt in 202808/15/2018 09/13/2018 Overview: Normal, rpt in 2028 Obesity, Class II, BMI 35-39.9 09/28/2017 12/24/2020 Nausea & vomiting 11/24/2016 09/28/2017 Severe obesity (BMI 35.0-35. 9 with comorbidity) 10/14/2016 09/28/2017 Biliary dyskinesia 09/27/2016 8 Gastroenteritis, acute 05/15/201609/17 Anxiety and depression 07/30/201512/24 Controlled type 2 diabetes m ellitus without complication 04/17/2014 07/13/2021 Overview: Dx 2005 Colon cancer screening 09/13 Encounters Date Type Department Care Team Description 09/27/2023 Telephone [facility] [address] [place], [place] [address] [address] Sonia Pérez PA Refill Request (Ozempic) 2023 Refill [facility] [address] [place] [address] Sonia Pérez PA Refill Request (Metformin) 09/16/2023 11:30 AM CDT - 09/16/2023 11:59 PM CDT Hospital Encounter [facility] [address] [place] [address] Sonia Pérez PA Broten, Laura, PT Chronic pain of right knee 09/15/2023 1:00 PM CDT Office Visit [facility] [address] [place] [address] Vangie Brizuela MD Medication Management; Follow Up 09/15/2023 Travel 09/09/[address] [address] Dayton Wheat NP Refill Request (Temazepam) 09/08/2023 8:30 AM CDT Office Visit [address] [address] Bulmaro Minaya MD Sleep Follow-up 09/08/2023 Travel 08/26/2023 12:50 PM CDT Ancillary Procedure [facility] [address] [place] [address] 08/26/2023 12:30 PM CDT Office Visit [facility] [address] [place] [address] Sonia Pérez PA Hospital F/U; Knee Pain/problem (Right/) 08/26/2023 Travel 08/25/2023 Patient Outreach [facility] [address] [facility] [address] [place] [address] Estela Lorenzo, DEBI Primary RN Care Management; Hospital F/U (DOD 08/24/23) 08/23/2023 10:22 PM CDT - 08/24/2023 5:13 PM CDT Hospital Encounter [facility] [address] [facility] [place] [address] Renee Rueda MD Fafara, Jafary, MD Ellis, Hill Silverman MD Hospitalists, [facility] Intractable nausea and vomiting (Primary Dx); Type 2 diabetes mellitus with other specified complication, with long-term current use of insulin (HC); Essential (primary) hypertension; Diabetic gastroparesis (HC); Generalized abdominal pain; Hypoxemia requiring supplemental oxygen; Obstructive sleep apnea syndrome Discharge Disposition: Home Self Care 08/23/2023 Travel 08/17/2023 7:30 AM CDT Nurse/Clinic Staff Only [facility] [address] [place] [address] Testing (HST Return/Download) 08/17/[address] [facility] [address] [facility] [address] [place] [address] Gloria Holloway, PharmD 08/16/2023 1:45 PM CDT Nurse/Clinic Staff Only [facility] [address] [place] [address] Testing (HSt Setup) 08/16/2023 Procedure Only [facility] [address] [place] [address] Bulmaro Minaya MD Results (HST) 08/16/2023 Travel 08/09/2023 4:00 PM CDT Office Visit [facility] [address] [facility] [address] Bulmaro Minaya MD Sleep Consult 08/09/2023 Travel 08/05/2023 Refill [facility] [address] [facility] [address] [place] [address] Vangie Brizuela MD Refill Request (Temazepam) 08/04/2023 2:44 PM CDT - 08/04/2023 11:59 PM CDT Hospital Encounter [facility] [address] [facility] [place] [address] Sonia Pérez PA Breast cancer screening by mammogram 08/04/2023 Travel 08/03/2023 Telephone [facility] [address] [place] [address] Bulmaro Minaya MD Appointment Request (Obstructive sleep apnea syndrome [G47.33]/) 08/02/2023 Telephone [facility] [address] [facility] [address] [place] [address] Haresh Perera MD Prior Authorization (lidocaine 5 % topical patch Approved 07/04/2023 - 08/01/2024 [id number]) 08/01/2023 Telephone [facility] [address] [facility] [address] [place] [address] Sonia Pérez PA Prior Authorization (liraglutide (Victoza 3-Darius) 0.6 mg/0.1 mL (18 mg/3 mL) subcutaneous pen Approved 07/09/2023 - 08/07/2024 N/A) 08/01/2023 Telephone [facility] [address] [facility] [address] [place] [address] Sonia Pérez PA Medication Management (Prior Authorization for liraglutide (Victoza 3-Darius) 0.6 mg/0.1 mL (18 mg/3 mL) subcutaneous pen) 07/29/2023 Telephone [facility] [address] [facility] [address] [place] [address] Sonia Pérez PA Prior Authorization (liraglutide (Victoza 3-Darius) 0.6 mg/0.1 mL (18 mg/3 mL) subcutaneous pen) 07/26/2023 11:30 AM CDT Office Visit [facility] [address] [facility] [address] [place] [address] Haresh Perera MD [facility] F/U (ER 07/25/23-Back Pain ) 07/25/2023 11:59 AM CDT - 07/25/2023 2:11 PM CDT Emergency [facility] [address] [place] [address] Antonio Hurst MD Acute right-sided low back pain without sciatica (Primary Dx); Urinary tract infection without hematuria, site unspecified Discharge Disposition: Home Self Care 07/25/2023 Travel 07/22/2023 Nurse Triage [facility] [address] [facility] [address] [place] [address] Sonia Pérez PA Back Pain from Last 3 Months Immunizations Name Administration Dates Next Due COVID-19 vaccine (Moderna 100mcg/0.5mL) PF, MDV 08/20/2020,07/24/2020 COVID-19 vaccine (Moderna Emil alcira 50mcg/0.25mL) PF, MDV 07/13/2021 Hepatitis B (Adult) 10/15/2020,02/21/2020,2019 Influenza Virus, Unspecified 02/05/2009,03/16/20 08,02/13/2003 Influenza, IIV3 (Age 6-35 mos) 02/24/2015,2011 Influenza, IIV3 (Age >=3 years) 04/23/2011,04/03 Influenza, IIV4 02/21/2023,,03/30/2021,2019,05/18/2019,03/13/2018,03/28/2017,1 ,02/19/2014 Influenza, IIV4 (Age 6-35 Mos) 05/07/2013 Pneumococcal Conj 20-valent (Prevnar 20) 04/06/2022 Pneumococcal Poly,23-Valent (Pneumovax) 02/05/2009 Td (Age >=7 Years) 01/21/1997 Tdap 09/17/2016,11/04/2006 Tuberculin Skin Test, Unspecified 09/13/2006 Zoster (Shingrix-RZV, recombinant) 03/30/2021 Family History Medical History Relation Name Comments PTSD Brother Diabetes Maternal Grandfather Diabetes Mother Other Mother non hodgkins ly mphoma, alzheimers Heart attack Paternal Grandfather Lung cancer Paternal Grandmother Cancer-breast No Family History Cancer-ovarian No Family History Relation Name Status Comments Brother Alive Father Alive Maternal Grandfather Mother Paternal Grandfather Paternal Grandmother Social History Tobacco Use Types Packs/Day Years Used Date Smoking Tobacco: Former Cigarettes 1.2 19 1 - 03/02/2008 Smokeless Tobacco: Never Tobacco Cessation:Counseling Given: Not Answered Alcohol Use Standard Drinks/Week Comments Yes 0 (1 standard drink = 0.6 oz pur e alcohol) occasional PHQ-2 Answer Date Recorded PHQ-2 TOTAL SCORE 2 09/15/2023 Social Connections Answer Date Recorded Frequency of Communication with Friends and Fami ly 0 08/24/2023 Alcohol Use Answer Date Recorded How often do you have a drink containing alcohol ? 2 02/03/2023 Average Number of Drinks Not on file 023 Frequency of Binge Drinking Not on file 01/15 Financial Resource Strain Answer Date R ecorded Difficulty of Paying Living Expenses 3 08/24/2023 Difficulty of Paying Living Expenses Not on file 08/24/2023 Food Insecurity Answer Date Recorded Worried About Running Out of Food in the Last Ye ar 1 08/24/2023 Transportation Needs Answer Date Record ed Lack of Transportation (Medical) 1 08/24/2023 Housing Stability Answer Date Recorded Unable to Pay for Housing in the Last Year 1 08/24/2023 Sex and Gender Information Value Date Recorded Sex Assigned at Not on file Gender Identity Not on file Sexual Orientation Not on file Obstetrics History Last Filed Vital Signs Vital Sign Reading Time Taken Comments Blood Pressure 131/86 09/15/2023 1:03 PM CDT Pulse 99 09/15/2023 1:03 PM CDT Temperature 36.6 ??C (97.8 ??F) 08/24/2023 8:30 AM CD T Respiratory Rate 16 08/24/2023 8:30 AM CDT Oxygen Saturation 95% 09/08/2023 8:38 AM CDT Inhaled Oxygen Concentration - - Weight 111.4 kg (245 lb 9.6 oz) 09/08/2023 8:38 AM CDT Height 177.6 cm (5' 9.92) 09/08/2023 8:38 AM CD T Body Mass Index 35.32 09/08/2023 8:38 AM CDT Plan of Treatment Upcoming Encounters Date Type Department Care Team (Late st Contact Info) Description 10/11/2023 3:00 PM CDT Appointment [facility] [address] [facility] [address] [place] [address] Monie Mensah, PT [address] [facility] [address] [place] [address] 10/17/2023 11:30 AM CDT Office Visit [facility] [address] [address] Sonia Pérez PA [address] [address] 10/20/2023 1:30 PM CDT Appointment [facility] [address] [facility] [address] [place] [address] oMnie Mensah, PT [address] [place] [address] 12/16/2023 1:15 PM CDT Office Visit [facility] [address] [address] Chanda Mendez NP [address] [address] 12/28/2023 11:30 AM CDT Office Visit [address] [place] [address] Bulmaro Minaya MD [address] [place] [place] [address] Health Maintenance Due Date Last Done Comments Zoster (shingles) series for age 50+ (2 of 2) 05/25/2021 03/30/2021 COVID-19 vaccine series ( season) 2023 07/13/2021, 08/20/2020, 07/24/2020 Pap test for age 21-65 07/20/2023 9, 07/19/2018, 02/24/2015 (Completed [facility] of [facility]) Influenza for age 50-64 01/15/2024 02/22/20 23, 04/06/2022, 03/30/2021, Additional history exists Mammogram for age 45-75 08/03/2024 08/04/19 24, 05/06/2022, 04/14/2021, Additional history exists Low Dose CT (for lung CA) ag e 50-80 08/23/2024 08/24/2023, 03/15/2023, 11/30/2021 BMI (ht and wt on same day) for age 18+ 09/07/2024 09/08/2023, 08/26/2023, 08/09/2023, Additional history exists Depression screening for age 12+ 09/15/2024 09/16/2023, 09/15/2023, 08/23/2023, Additional history exists Tetanus booster 09/17/2026 09/17/2016, 10/15, 01/21/1997 Lipids for age 45-75 07/07/2028 07/07/2023, 07/13/2022, 07/13/2021, Additional history exists Colonoscopy through age 75 08/15/2028 08/15/2018 Tdap Completed 09/17/2016, 11/04/2006 Hepatitis B series for Diabetes Completed 10/15/2020, 02/21/2020, 11/30/2019 HIV for age 15-65 Completed 04/06/2022 Hepatitis C screening for ag e 18-79 Completed 04/06/2022 Pneumococcal series for age 6-64 Completed 04/06/20 22, 02/05/2009 Procedures Procedure Name Priority Date/Time Associated Diagnosis Comments XR KNEE 3 VIEWS RIGHT Routine 08/26/2023 12:58 PM CDT Chronic pain of right knee GLUCOSE METER Timed 08/24/2023 11:40 AM CDT GLUCOSE METER Timed 08/24/2023 8:33 AM CDT BLOOD GAS,VENOUS Early AM 08/24/2023 7:04 AM CDT HEPATIC FUNCTION PANEL Early AM 08/24/2023 7:04 AM CDT WHITE BLOOD COUNT Early AM 08/24/2023 7:0 4 AM CDT GLUCOSE, RANDOM Early AM 08/24/2023 7:04 AM CDT CREATININE Early AM 08/24/2023 7:04 AM CDT MAGNESIUM Early AM 08/24/2023 7:04 AM CDT POTASSIUM Early AM 08/24/2023 7:04 AM CDT SODIUM Early AM 08/24/2023 7:04 AM CDT HEMOGLOBIN Early AM 08/24/2023 7:04 AM CDT URINALYSIS MICROSCOPIC STAT 08/24/2023 3:53 AM CDT STOOL PATHOGEN MULTIPLEX PCR PANEL STAT 08/24/2023 3:53 AM CDT UA W/ SEDIMENT EXAM REFLEXED PER CRITERIA STAT 08/24/2023 3:53 AM CDT LACTATE VENOUS STAT 08/24/2023 1:07 AM CDT TROPONIN T (HS) ONE TIME Timed 08/24/2023 1:07 AM CDT EXTRA TUBE LIGHT GREEN Today 08/24/2023 1:[address] CHEST PULMONARY EMBOLUS PE ABDOMEN PELVIS W STAT 08/24/2023 12:38 AM CDT EKG 12 LEAD STAT 08/24/2023 12:01 AM CDT D-DIMER,QUANTITATIVE STAT 08/23/2023 11:43 PM CDT PRO-BNP RENAE 08/23/2023 10:54 PM CDT TROPONIN T (HS) ACUTE W/2HR REFLEX RENAE 08/23/2023 10:54 PM CDT CBC WITH AUTO DIFFERENTIAL STAT 08/23/2023 10:54 PM CDT COVID/FLU/RSV PANEL Today 08/23/2023 1 0:54 PM CDT LIPASE STAT 08/23/2023 10:54 PM CDT COMP METABOLIC PANEL STAT 08/23/2023 10:54 PM CDT CBC WITH AUTO DIFFERENTIAL STAT 08/23/2023 10:54 PM CDT HOME SLEEP TEST TYPE 3 PORTABLE Routine 08/16/2023 11:59 PM CDT FRED (obstructive sleep apnea) IRON PLUS IRON BINDING CAP Routine 08/09/2023 4:40 PM CDT Restless leg syndrome XR MAMMO RONEN BILAT SCREEN Routine 08/04/2023 2:56 PM CDT Breast cancer screening by mammogram URINALYSIS MICROSCOPIC STAT 07/25/2023 1:36 PM CDT UA W/ SEDIMENT EXAM REFLEXED PER CRITERIA STAT 07/25/2023 1:36 PM CDT XR SPINE LUMBAR 3 VIEWS STAT 07/25/2023 12:45 PM CDT LIPID PANEL W REFLEX MEASURED LDL Routine 07/07/2023 2:58 PM PROGRAM DEVELOPMENT SPECIALIST Hyperlipidemia, unspecified hyperlipidemia type ANTI HIV 1/2 Add On 04/06/2022 11:55 AM PROGRAM DEVELOPMENT SPECIALIST Screening for HIV (human immunodeficiency virus) ANTI HCV Add On 04/06/2022 11:55 AM PROGRAM DEVELOPMENT SPECIALIST Need for hepatitis C screening test COLONOSCOPY 08/15/2018 11:49 AM CDT BEAVER TRAPPER THIN PREP PAP SCREEN IMAGED Routine 07/19/2018 3:46 PM PROGRAM DEVELOPMENT SPECIALIST Screening for malignant neoplasm of cervix from Last 3 Months or Most Recently Relevant to Health Maintenance Results * XR KNEE 3 VIEWS RIGHT (08/26/2023 12:58 PM CDT) Anatomical Region Laterality Modality KNEES, KNEE R Computed Radiogr aphy 08/26/2023 1:00 PM CDT Impressions 08/26/2023 1:00 PM CDT Negative right knee. Dictated by Herrera Skinner MD @ Aug 26 2023 ??1:00PM (Electronically Signed) [email or web address] Narrative 08/26/2023 1:00 PM CDT For Patients: ??As a result of the Cures Act, medical imaging exams and procedure reports are released immediately into your electronic medical record. ??You may view this report before your referring provider. ??If you have questions, please contact your health care provider. INDICATION: Chronic right knee pain TECHNIQUE: Weightbearing AP and lateral views of the right knee as well as a sunrise view COMPARISON: None. FINDINGS: No joint effusion, joint space narrowing, chondrocalcinosis or other abnormality. Procedure Note Herrera Skinner MD - 08/26/2023 For Patients: As a result of the 21st Century Cures Act, medical imagingexams and procedure reports are released immediately into your electronicmedical record. You may view this report before your referring provider.If you have questions, please contact your health care provider. INDICATION: Chronic right knee pain TECHNIQUE: Weightbearing AP and lateral views of the right knee as well as a sunriseview COMPARISON: None. FINDINGS: No joint effusion, joint space narrowing, chondrocalcinosis or otherabnormality. IMPRESSION: Negative right knee. Dictated by Herrera Skinner MD @ Aug 26 2023 1:00PM (Electronically Signed) [email or web address] * (ABNORMAL) GLUCOSE METER (08/24/2023 11:40 AM CDT) Only the most recent of2 resultswithin the time period is included. GLUCOSE METER 329(H) 65 - 100 mg/dL 08/24/2023 11:41 AM CDT [facility] Blood BLOOD SPECIMEN / Unknown 08/24/2023 11:40 AM CDT 08/24/2023 11:41 AM CDT Hill Yan MD CHEMISTRY Performing Organization Address [facility] Co de Phone Number [address] [address] * (ABNORMAL) GLUCOSE, RANDOM (08/24/2023 7:04 AM CDT) GLUCOSE,RANDOM 224(H) 70 - 139 mg/dL 08/24/2023 8:07 AM CDT [facility] Blood BLOOD SPECIMEN / Unknown Butterfly / Unknown 08/24/2023 7:04 AM CDT 08/24/2023 7:12 AM CDT Ranulfo Ramírez MD CHEMISTRY Performing Organization Address City/[facility]/ZIP Co de Phone Number [address] [address] * WHITE BLOOD COUNT (08/24/2023 7:04 AM CDT) WHITE BLOOD COUNT 5.6 4.5 - 11.0 thou/cu mm 08/24/2023 7:19 AM CDT [facility] Blood BLOOD SPECIMEN / Unknown Butterfly / Unknown 08/24/2023 7:04 AM CDT 08/24/2023 7:12 AM CDT Ranulfo Ramírez MD HEMATOLOGY Performing Organization Address [facility] Hospital/ZIP Co de Phone Number [address] [address] * HEMOGLOBIN (08/24/2023 7:04 AM CDT) HEMOGLOBIN 12.8 12.0 - 16.0 g/dL 08/24/2023 7:19 AM CDT [facility] MCV 87 80 - 100 fL 08/24/2023 7:19 AM CDT [facility] Blood BLOOD SPECIMEN / Unknown Butterfly / Unknown 08/24/2023 7:04 AM CDT 08/24/2023 7:12 AM CDT Ranulfo Ramírez MD HEMATOLOGY Performing Organization Address [facility] Co de Phone Number [address] [address] * (ABNORMAL) SODIUM (08/24/2023 7:04 AM CDT) SODIUM 133(L) 136 - 145 mmol/L 08/24/2023 8:07 AM CDT [facility] Blood BLOOD SPECIMEN / Unknown Butterfly / Unknown 08/24/2023 7:04 AM CDT 08/24/2023 7:12 AM CDT Ranulfo Ramírez MD CHEMISTRY Performing Organization Address City/[facility] Co de Phone Number [address] [address] * POTASSIUM (08/24/2023 7:04 AM CDT) POTASSIUM 4.0 3.5 - 5.1 mmol/L 08/24/2023 8:07 AM CDT [facility] Blood BLOOD SPECIMEN / Unknown Butterfly / Unknown 08/24/2023 7:04 AM CDT 08/24/2023 7:12 AM CDT Ranulfo Ramírez MD CHEMISTRY Performing Organization Address [facility] de Phone Number [address] [address] * (ABNORMAL) BLOOD GAS,VENOUS (08/24/2023 7:04 AM CDT) PH, VENOUS 7.45(H) 7.32 - 7.43 08/24/2023 7:17 AM CDT [facility] PCO2, VENOUS 32(L) 41 - 51 mmHg 08/24/2023 7:17 AM CDT [facility] PO2, VENOUS 85(H) 35 - 40 mmHg 08/24/2023 7:17 AM CDT [facility] HCO3,VENOUS 22 22 - 29 mmol/L 08/24/2023 7:17 AM CDT [facility] BASE EXCESS, VENOUS, POCT -1.0 -2.0 - 3.0 08/24/2023 7:17 AM CDT [facility] O2 SATURATION, VENOUS 98(H) 70 - 75 % 08/24/2023 7:17 AM CDT [facility] PATIENT TEMPERATURE 37.0 Degrees C 08/24/2023 7:17 AM CDT [facility] Blood VENOUS BLOOD SPECIMEN / Unknown Butterfly / Unknown 08/24/2023 7:04 AM CDT 08/24/2023 7:12 AM CDT Ranulfo Ramírez MD CHEMISTRY Performing Organization Address [facility] Co de Phone Number [address] [address] * CREATININE (08/24/2023 7:04 AM CDT) eGFR >90 >90 mL/min/1.7 3m2 08/24/2023 8:07 AM CDT [facility] Comment:As of 2021, eG FR is calculated by the CKD-EPI creatinine equation without race adjustment. ??eGFR can be influenced by muscle mass, exercise, and diet. ??The reported eGFR is an estimation only and is only applicable if the renal function is stable. CREATININE 0.73 0.50 - 0.90 mg/dL 08/24/2023 8:07 AM CDT [facility] Blood BLOOD SPECIMEN / Unknown Butterfly / Unknown 08/24/2023 7:04 AM CDT 08/24/2023 7:12 AM CDT Ranulfo Ramírez MD CHEMISTRY Performing Organization Address [facility]/ZIP Co de Phone Number [address] [address] * (ABNORMAL) MAGNESIUM (08/24/2023 7:04 AM CDT) MAGNESIUM 1.1(LL) 1.6 - 2.6 mg/dL 08/24/2023 8:13 AM CDT [facility] Blood BLOOD SPECIMEN / Unknown Butterfly / Unknown 08/24/2023 7:04 AM CDT 08/24/2023 7:12 AM CDT Ranulfo Ramírez MD CHEMISTRY Performing Organization Address [facility] Co de Phone Number [address] [address] * (ABNORMAL) HEPATIC FUNCTION PANEL (08/24/2023 7:04 AM CDT) ALBUMIN 3.9(L) 4.0 - 4.9 g/dL 08/24/2023 8:07 AM CDT [facility] PROTEIN,TOTAL 6.7 6.0 - 8.0 g/dL 08/24/2023 8:07 AM CDT [facility] BILIRUBIN,TOTAL 0.3 0.0 - 1.2 mg/dL 08/24/2023 8:07 AM CDT [facility] BILIRUBIN,DIRECT <0.2 0.0 - 0.3 mg/dL 08/24/2023 8:07 AM CDT [facility] BILIRUBIN,INDIRE CT 08/24/2023 8:07 AM CDT [facility] Comment:Unable to calculate, Direct Bili <0.2 ALK PHOSPHATASE 57 35 - 104 IU/L 08/24/2023 8:07 AM CDT [facility] ALT (SGPT) 40(H) 10 - 35 IU/L 08/24/2023 8:07 AM CDT [facility] AST (SGOT) 48(H) 10 - 35 IU/L 08/24/2023 8:07 AM CDT [facility] Blood BLOOD SPECIMEN / Unknown Butterfly / Unknown 08/24/2023 7:04 AM CDT 08/24/2023 7:12 AM CDT Ranulfo Ramírez MD CHEMISTRY [facility] [address] [place] [address] * (ABNORMAL) STOOL PATHOGEN MULTIPLEX PCR PANEL (08/24/2023 3:53 AM CDT) Campylobacter NOT Detected NOT Detected 08/25/2023 1:50 PM CDT [facility] Salmonella NOT Detected NOT Detected 08/25/2023 1:50 PM CDT [facility] Shigella NOT Detected NOT Detected 08/25/2023 1:50 PM CDT [facility] Vibrio NOT Detected NOT Detected 08/25/2023 1:50 PM CDT [facility] Yersinia Enterocolitica NOT Detected NOT Detected 08/25/2023 1:50 PM CDT [facility] Shiga Toxin 1 NOT Detected NOT Detected 08/25/2023 1:50 PM CDT [facility] Shiga Toxin 2 NOT Detected NOT Detected 08/25/2023 1:50 PM CDT [facility] Norovirus Detected(A) NOT Detected 08/25/2023 1:50 PM CDT [facility] Rotavirus NOT Detected NOT Detected 08/25/2023 1:50 PM CDT [facility] Stool STOOL SPECIMEN / Unknown Non-Blood / Unknown 08/24/2023 3:53 AM CDT 08/24/2023 4:05 AM CDT Narrative [facility] - 08/25/2023 1:50 PM CDT This test is a Culture Independent Diagnostic Test (CIDT) therefore isolates are not available for susceptibility testing. ??Antibiotic treatment is often contraindicated and may be detrimental in cases of enteric infections, thus routine susceptibility testing is not recommended. Renee Rueda MD MICROBIOLOGY [facility] [address] [place] [id number], * URINALYSIS MICROSCOPIC (08/24/2023 3:53 AM CDT) Only the most recent of2 resultswithin the time period is included. RBC 0-2 0-2, None Seen /HPF 08/24/2023 4:28 AM CDT [facility] WBC None Seen 0-2, 3-5, None Seen /HPF 08/24/2023 4:28 AM CDT [facility] BACTERIA Rare None Seen, Rare, Few Bacteria/H PF 08/24/2023 4:28 AM CDT [facility] EPITHELIAL CELLS Few None Seen, Few Epi/HPF 08/24/2023 4:28 AM CDT [facility] Urine URINE SPECIMEN / Unknown Non-Blood / Unknown 08/24/2023 3:53 AM CDT 08/24/2023 4:05 AM CDT Renee Rueda MD URINE Performing Organization Address City/[facility]/ZIP Co de Phone Number [facility] [address] [place] [address] * (ABNORMAL) Urinalysis W Reflex Microscopic if Positive (08/24/2023 3:53 AM CDT) Only the most recent of2 resultswithin the time period is included. COLOR Yellow Yellow Color 08/24/2023 4:15 AM CDT [facility] CLARITY Clear Clear Clarity 08/24/2023 4:15 AM CDT [facility] SPECIFIC GRAVITY,URINE 1.020 1.010, 1.015, 1.020, 1.025 08/24/2023 4:15 AM CDT [facility] PH,URINE 5.0(A) 6.0, 7.0, 8.0, 5.5, 6.5, 7.5, 8.5 08/24/2023 4:15 AM CDT [facility] UROBILINOGEN,Q UALITATIVE Normal Normal EU/dl 08/24/2023 4:15 AM CDT [facility] PROTEIN, URINE Negative Negative mg/dL 08/24/2023 4:15 AM CDT [facility] GLUCOSE, URINE Negative Negative mg/dL 08/24/2023 4:15 AM CDT [facility] KETONES,URINE Negative Negative mg/dL 08/24/2023 4:15 AM CDT [facility] BILIRUBIN,URIN E Negative Negative 08/24/2023 4:15 AM CDT [facility] OCCULT BLOOD,URINE Trace(A) Negative 08/24/2023 4:15 AM CDT [facility] NITRITE Negative Negative 08/24/2023 4:15 AM CDT [facility] LEUKOCYTE ESTERASE Negative Negative 08/24/2023 4:15 AM CDT [facility] Urine URINE SPECIMEN / Unknown Non-Blood / Unknown 08/24/2023 3:53 AM CDT 08/24/2023 4:05 AM CDT Renee Rueda MD URINE [facility] [address] [place] [address] * (ABNORMAL) TROPONIN T (HS) ONE TIME (08/24/2023 1:07 AM CDT) TROPONIN T HS 12(H) 6-10 ng/L ng/L 08/24/2023 3:30 AM CDT [facility] Blood BLOOD SPECIMEN / Unknown PIV Device / Unknown 08/24/2023 1:07 AM CDT 08/24/2023 1:37 AM CDT Renee Rueda MD CHEMISTRY Performing Organization Address [facility] Co de Phone Number [address] [address] * LACTATE VENOUS (08/24/2023 1:07 AM CDT) [facility] LACTATE,VENOUS 1.6 0.5 - 2.0 mmol/L 08/24/2023 1:35 AM CDT [facility] Blood BLOOD SPECIMEN / Unknown PIV Device / Unknown 08/24/2023 1:07 AM CDT 08/24/2023 1:17 AM CDT Ranulfo Ramírez MD CHEMISTRY Performing Organization Address [facility] Co de Phone Number [address] [address] * EXTRA TUBE LIGHT GREEN (08/24/2023 1:00 AM CDT) Blood BLOOD SPECIMEN / Unknown Venipuncture / Unknown 08/24/2023 1:00 AM CDT 08/24/2023 1:35 AM CDT Ranulfo Ramírez MD LABORATORY Performing Organization Address [facility] Co de Phone Number [address] [address] * CT CHEST PULMONARY EMBOLUS PE ABDOMEN PELVIS W (08/24/2023 12:38 AM CDT) Anatomical Region Laterality Modality CHEST, Abdomen, Pelvis Computed Tomography 08/24/2023 12:5 8 AM CDT Impressions 08/24/2023 12:58 AM CDT 1. No pulmonary embolism. No acute findings in the chest. 2. Mild perivesicular stranding, could represent cystitis. Recommend correlation with urinalysis. 3. No other acute findings within the abdomen and pelvis. Please note that all CT scans at this facility use dose modulation, iterative reconstruction, and/or weight-based dosing when appropriate to reduce radiation dose to as low as reasonably achievable. Dictated by Lobito Roque MD @ 08/24/2023 12:58:47 AM (Electronically Signed) Narrative 08/24/2023 12:58 AM CDT For Patients: ??As a result of the Cures Act, medical imaging exams and procedure reports are released immediately into your electronic medical record. ??You may view this report before your referring provider. ??If you have questions, please contact your health care provider. INDICATION: Abdominal pain, acute TECHNIQUE: CT chest PE, abdomen and pelvis acquired with 98 cc of Omnipaque 350 IV contrast. COMPARISON: CT chest, abdomen, and pelvis 11/30/[address] abdomen and pelvis 08/28/[address] chest 03/15/2023 FINDINGS: CHEST: Cardiovascular structures: Heart size is normal. Thoracic aorta and main pulmonary artery are normal in caliber. ??No sign of pulmonary embolism. Mediastinum and yvette: No mass or adenopathy. ?? Lungs and pleura: Mild dependent lower lobe atelectasis. No consolidation, pleural effusion, pneumothorax, or suspicious nodule. Chest wall and axilla: No mass or adenopathy. ?? Bones: No suspicious bone lesions. ??Unremarkable for age. ?? ABDOMEN AND PELVIS: Liver: Unremarkable. ?? Gallbladder and bile ducts: Status post cholecystectomy. No abnormal biliary ductal dilatation. Pancreas: Unremarkable. ?? Spleen: Unremarkable. ?? Adrenal glands: Unremarkable. ?? Kidneys: Unremarkable. ?? GI tract: Unremarkable. ?? Vascular structures: Unremarkable. ?? Lymph nodes: Unremarkable. ?? Miscellaneous: Small partially imaged intramuscular lipoma within the left sartorius muscle. No free air or significant free fluid. ?? Pelvic Organs: Mild perivesicular stranding. Small calcified uterine fibroid. Bones: No suspicious bone lesions. ??Unremarkable for age. ?? Procedure Note Lobito Roque MD - 08/24/2023 For Patients: As a result of the Cures Act, medical imagingexams and procedure reports are released immediately into your electronicmedical record. You may view this report before your referring provider.If you have questions, please contact your health care provider. INDICATION: Abdominal pain, acute TECHNIQUE: CT chest PE, abdomen and pelvis acquired with 98 cc of Omnipaque 350 IVcontrast. COMPARISON: CT chest, abdomen, and pelvis 11/30/[address] abdomen and [id number]/[address] chest 03/15/2023 FINDINGS: CHEST: Cardiovascular structures: Heart size is normal. Thoracic aorta and mainpulmonary artery are normal in caliber. No sign of pulmonary embolism. Mediastinum and yvette: No mass or adenopathy. Lungs and pleura: Mild dependent lower lobe atelectasis. No consolidation,pleural effusion, pneumothorax, or suspicious nodule. Chest wall and axilla: No mass or adenopathy. Bones: No suspicious bone lesions. Unremarkable for age. ABDOMEN AND PELVIS: Liver: Unremarkable. Gallbladder and bile ducts: Status post cholecystectomy. No abnormalbiliary ductal dilatation. Pancreas: Unremarkable. Spleen: Unremarkable. Adrenal glands: Unremarkable. Kidneys: Unremarkable. GI tract: Unremarkable. Vascular structures: Unremarkable. Lymph nodes: Unremarkable. Miscellaneous: Small partially imaged intramuscular lipoma within the leftsartorius muscle. No free air or significant free fluid. Pelvic Organs: Mild perivesicular stranding. Small calcified uterinefibroid. Bones: No suspicious bone lesions. Unremarkable for age. IMPRESSION: 1. No pulmonary embolism. No acute findings in the chest. 2. Mild perivesicular stranding, could represent cystitis. Recommendcorrelation with urinalysis. 3. No other acute findings within the abdomen and pelvis. Please note that all CT scans at this facility use dose modulation,iterative reconstruction, and/or weight-based dosing when appropriate toreduce radiation dose to as low as reasonably achievable. Dictated by Lobito Roque MD @ 08/24/2023 12:58:47 AM (Electronically Signed) Renee Rueda MD CT * EKG 12 LEAD (08/24/2023 12:01 AM CDT) Interpretation Normal sinus rhythm Normal ECG BEYOND NOW Ventricular Rate 100 BPM BEYOND NOW Atrial Rate 100 BPM BEYOND NOW P-R Interval 146 ms BEYOND NOW QRS Duration 80 ms BEYOND NOW QT 352 ms BEYOND NOW QTc 454 ms BEYOND NOW P [place] 34 degrees BEYOND NOW R [place] 45 degrees BEYOND NOW T [place] 5 degrees BEYOND NOW 08/24/2023 12:0 1 AM CDT 08/25/2023 1:14 PM CDT Renee Rueda MD EKG ORD BEYOND NOW [place], [place] * (ABNORMAL) D-DIMER,QUANTITATIVE (08/23/2023 11:43 PM CDT) D-DIMER,QUANTI TATIVE 0.75 See comment FEU mcg/mL 08/24/2023 12:08 AM CDT [facility] D-DIMER INTERP Abnormal(A ) 08/24/2023 12:08 AM CDT [facility] Blood BLOOD SPECIMEN / Unknown Non-Lab Butterfly / Unknown 08/23/2023 11:43 PM CDT 08/23/2023 11:47 PM CDT Narrative [facility] - 08/24/2023 12:08 AM CDT The cut off value for exclusion of Deep Vein Thrombosis and / or Pulmonary Embolism is 0.50 FEU mcg/mL For patients greater than 50 years of age the upper limit is age dependent and was calculated with the formula: ?? (PATIENT AGE x 0.01) FEU mcg/mL = Upper limit of normal range Renee Rueda MD HEMATOLOGY Performing Organization Address City/[facility] Co de Phone Number [address] [address] * COVID/FLU/RSV PANEL (08/23/2023 10:54 PM CDT) COVID 19 [facility] MOLECULAR Negative Negative 08/24/2023 12:01 AM CDT [facility] Comment:All PCR tests are castro bject to false negative result due to variability in viral load and collection technique. A negative result does not rule out a SARS-CoV-2 infection. Clinical correlation required. INFLUENZA A PCR Negative 4 12:01 AM CDT [facility] INFLUENZA B PCR Negative 4 12:01 AM CDT [facility] Respiratory Syncytial Virus Negative 08/24/2023 12:01 AM CDT [facility] Swab NASOPHARYNGEAL SWAB / Unknown Non-Blood / Unknown 08/23/2023 10:54 PM CDT 08/23/2023 11:09 PM CDT Renee Rueda MD MICROBIOLOGY [facility] [address] [place] [address] * TROPONIN T (HS) ACUTE W/2HR REFLEX (08/23/2023 10:54 PM CDT) TROPONIN T HS 10 6-10 ng/L ng/L 08/24/2023 12:19 AM CDT [facility] Blood BLOOD SPECIMEN / Unknown Non-Lab Venipuncture / Unknown 08/23/2023 10:54 PM CDT 08/23/2023 11:17 PM CDT Narrative [facility] - 08/24/2023 12:19 AM CDT hs-cTnT (Elecsys Troponin T Gen 5) concentration (s) above the sex-specific 99th percentile (16 ng/L or greater for males or 11 ng/L or greater for females) are indicative of myocardial injury. If initial hs-cTnT <=100 ng/L at presentation, a 0h/2h ABSOLUTE (ng/L) delta change (rising or falling) of >=10 ng/L suggests a significant change, whereas a 0h/2h delta change <=3 ng/L suggests no significant change. If initial hs-cTnT >100 ng/L at presentation, a 0h/2h/ RELATIVE (percent, %) delta change of 20% is suggested to distinguish patients with acute vs. chronic myocardial injury. There are multiple etiologies that can cause hs-cTnT increases above the 99th percentile (myocardial injury) other than acute myocardial infarction. Clinical context and careful clinical evaluation are critical for diagnosis and risk-stratification. The diagnosis of acute myocardial infarction requires a rising and/or falling pattern in hs-cTnT concentrations with at least one value above the sex-specific 99th percentile PLUS at least one of the following clinical criteria: ischemic symptoms, new or presumed new significant ST-T wave changes or new LBBB, development of pathological Q waves, imaging evidence of new loss of viable myocardium or new regional wall motion abnormality, or identification of intracoronary atherothrombosis or an acute angiographic culprit on coronary angiography. In appropriate low-risk patients with a non-ischemic electrocardiogram without active chest pain with a symptom onset >3-hours without recurrence, a single initial hs-cTnT<6 ng/L identifies patient with a very low risk in emergency department patient population. Renee Rueda MD CHEMISTRY [facility] [address] [id number] * CBC WITH AUTO DIFFERENTIAL (08/23/2023 10:54 PM CDT) WHITE BLOOD COUNT 8.4 4.5 - 11.0 thou/cu mm 08/23/2023 11:18 PM CDT [facility] RED BLOOD COUNT 5.00 4.00 - 5.20 mil/cu mm 08/23/2023 11:18 PM CDT [facility] HEMOGLOBIN 14.6 12.0 - 16.0 g/dL 08/23/2023 11:18 PM CDT [facility] HEMATOCRIT 43.1 33.0 - 51.0 % 08/23/2023 11:18 PM CDT [facility] MCV 86 80 - 100 fL 08/23/2023 11:18 PM CDT [facility] MCH 29.2 26.0 - 34.0 pg 08/23/2023 11:18 PM CDT [facility] MCHC 33.9 32.0 - 36.0 g/dL 08/23/2023 11:18 PM CDT [facility] RDW 13.0 11.5 - 15.5 % 08/23/2023 11:18 PM CDT [facility] PLATELET COUNT 277 140 - 440 thou/cu mm 08/23/2023 11:18 PM CDT [facility] MPV 9.7 6.5 - 11.0 fL 08/23/2023 11:18 PM CDT [facility] NRBC 0.0 % 08/23/2023 11:18 PM CDT [facility] ABS NRBC 0.0 thou /cu mm 08/23/2023 11:18 PM CDT [facility] % NEUT 81.0 % 08/23/2023 11:18 PM CDT [facility] % LYMPH 11.8 % 08/23/2023 11:18 PM CDT [facility] % MONO 5.2 % 08/23/2023 11:18 PM CDT [facility] % EOS 1.1 % 08/23/2023 11:18 PM CDT [facility] % BASO 0.5 % 08/23/2023 11:18 PM CDT [facility] % IMMATURE GRAN (METAS,MYELOS,TN OS) 0.4 % 08/23/2023 11:18 PM CDT [facility] ABSOLUTE NEUTROPHILS 6.8 1.7 - 7.0 thou/cu mm 08/23/2023 11:18 PM CDT [facility] ABSOLUTE LYMPHOCYTES 1.0 0.9 - 2.9 thou/cu mm 08/23/2023 11:18 PM CDT [facility] ABSOLUTE MONOCYTES 0.4 <0.9 thou/cu mm 08/23/2023 11:18 PM CDT [facility] ABSOLUTE EOSINOPHILS 0.1 <0.5 thou/cu mm 08/23/2023 11:18 PM CDT [facility] ABSOLUTE BASOPHILS 0.0 <0.3 thou/cu mm 08/23/2023 11:18 PM CDT [facility] ABSOLUTE IMMATURE GRANULOCYTES(MET ,MYELOS,PROS) 0.0 <0.3 thou/cu mm 08/23/2023 11:18 PM CDT [facility] Blood BLOOD SPECIMEN / Unknown IV Start / Unknown 08/23/2023 10:54 PM CDT 08/23/2023 11:16 PM CDT Renee Rueda MD HEMATOLOGY [facility] [address] [place] [address] * PRO-BNP (08/23/2023 10:54 PM CDT) Pathologist [facility] PRO-BNP <36 <125 pg/mL 08/24/2023 12:19 AM CDT [facility] Blood BLOOD SPECIMEN / Unknown Non-Lab Venipuncture / Unknown 08/23/2023 10:54 PM CDT 08/23/2023 11:17 PM CDT Narrative [facility] - 08/24/2023 12:19 AM CDT The following cut-points have been suggested for the use of proBNP for the diagnostic evaluation of heart failure (HF) in patient with acute dyspnea. Patients with eGFR >= 60 Diagnosis (rule in CHF) ? <50 Years Old ?450 pg/mL 50 - 75 Years Old ?900 pg/mL >75 Years Old ? 1800 pg/mL Exclusion (rule out CHF) Age Independent ?300 pg/mL A cutoff of 1200 pg/mL for patients with an eGFR <60 yields a diagnostic sensitivity of 89% and specificity of 72% for acute congestive heart failure. ? Renee Rueda MD SEND OUTS [facility] [address] [place] [address] * Lipase (08/23/2023 10:54 PM CDT) Pathologist [facility] LIPASE 49.6 13.0 - 60.0 IU/L 08/23/2023 11:40 PM CDT [facility] Blood BLOOD SPECIMEN / Unknown Non-Lab Venipuncture / Unknown 08/23/2023 10:54 PM CDT 08/23/2023 11:17 PM CDT Renee Rueda MD CHEMISTRY [facility] [address] [place] [address] * (ABNORMAL) Comp Metabolic Panel (08/23/2023 10:54 PM CDT) SODIUM 133(L) 136 - 145 mmol/L 08/23/2023 11:40 PM CDT [facility] POTASSIUM 3.9 3.5 - 5.1 mmol/L 08/23/2023 11:40 PM CDT [facility] CHLORIDE 100 98 - 107 mmol/L 08/23/2023 11:40 PM CDT [facility] CO2,TOTAL 20(L) 22 - 29 mmol/L 08/23/2023 11:40 PM CDT [facility] ANION GAP 13 5 - 18 08/23/2023 11:40 PM CDT [facility] GLUCOSE 229(H) 70 - 99 mg/dL 08/23/2023 11:40 PM CDT [facility] CALCIUM 8.9 8.6 - 10.0 mg/dL 08/23/2023 11:40 PM CDT [facility] BUN 12 6 - 20 mg/dL 08/23/2023 11:40 PM CDT [facility] CREATININE 0.72 0.50 - 0.90 mg/dL 08/23/2023 11:40 PM CDT [facility] BUN/CREAT RATIO 17 10 - 20 11:40 PM CDT [facility] eGFR >90 >90 mL/min/1.7 3m2 08/23/2023 11:40 PM CDT [facility] Comment:As of 2021, eG FR is calculated by the CKD-EPI creatinine equation without race adjustment. ??eGFR can be influenced by muscle mass, exercise, and diet. ??The reported eGFR is an estimation only and is only applicable if the renal function is stable. ALBUMIN 4.4 4.0 - 4.9 g/dL 08/23/2023 11:40 PM CDT [facility] PROTEIN,TOTAL 7.6 6.0 - 8.0 g/dL 08/23/2023 11:40 PM CDT [facility] BILIRUBIN,TOTAL 0.4 0.0 - 1.2 mg/dL 08/23/2023 11:40 PM CDT [facility] ALK PHOSPHATASE 63 35 - 104 IU/L 08/23/2023 11:40 PM CDT [facility] ALT (SGPT) 48(H) 10 - 35 IU/L 08/23/2023 11:40 PM CDT [facility] AST (SGOT) 48(H) 10 - 35 IU/L 08/23/2023 11:40 PM CDT [facility] Blood BLOOD SPECIMEN / Unknown Non-Lab Venipuncture / Unknown 08/23/2023 10:54 PM CDT 08/23/2023 11:17 PM CDT Renee [place] [address] * HOME SLEEP TEST TYPE 3 PORTABLE (08/16/2023 11:59 PM CDT) Narrative Bulmaro Minaya MD - 08/16/2023 11:59 PM CDT Bulmaro Minaya MD ? 08/18/2023 ??4:05 PM Home Sleep Test Name: ??Liz Phelps Location: ??[facility] Study notes: This is a single night home sleep apnea test. The study is performed in the context of a clinical suspicion for sleep apnea. Liz Phelps ( 1965) is studied using a T3 Device using nasal pressure transducer, thoracoabdominal respiratory impedance plethysmography belts, pulse oximetry, snore microphone and actigraphy for body position. ??The study is scored by a RPSGT and interpreted by a Diplomate of the [employer] [employer]. ??An [id number] review of the data has been performed by the interpreting physician. Scored following the most current version of the AASM Manual for the Scoring of Sleep and Associated Events. ?? Respiratory Event Index (BEAR) ??Oxygen Desaturation Index (ANU) REI4% ??58 ??ODI4%: ??67 Supine BEAR: 34.9 ??ODI3%: ??67 Lateral BEAR: 59.1 ??Jeanmarie Saturation 59 % ?? Time Below 88% 163.5 ??minutes ?? Weight: Wt Readings from Last 1 Encounters: 08/09/23 112.1 kg (247 lb 3.2 oz) Other data: Recording Duration: 479.9 minutes Time in Bed: ??413.1 minutes Estimated sleep efficiency [%]: 97 % Oximeter Quality: 98.2 % Flow Quality: 97.7 % RIP Quality: 100.0 % Supine time: 13.8 minutes Average SpO2: 85.6 % Pulse Average: 70.1 bpm Additional Comments: None IMPRESSION: Obstructive Sleep Apnea (327.23, G47.33) Nocturnal Hypoxia (327.26, G47.34) RECOMMENDATIONS: - This is severe sleep apnea with marked drops in oxygen - Hypoxia is noted. ??While this can be probe error, it may suggest underlying cardiopulmonary disease and clinical correlation is recommended. - Treatment for obstructive sleep apnea is recommended and CPAP would generally be considered first-line therapy for this severity of sleep apnea. ??Consider auto-titrating CPAP 5-20 cm. ?? Alternatively- if concerned a PSG titration study could be considered - Follow-up with a provider to discuss results is recommended. - Patients should be advised to avoid critical tasks, such as driving, whenever drowsy. - Patients should try to achieve at least 7-8 hours of sleep on a consistent basis. - The BEAR is a surrogate for AHI. ??For reimbursement and/or prior authorization purposes, it would be appropriate to list the BEAR as an AHI when the latter is accepted, but not the former. Bulmaro Minaya M.D. Diplomate, Board of Sleep Medicine Recording Information Recording Date: 08/16/2023 ??Analysis Start Time: 12:06 AM Recording Tags: ?? Analysis Stop Time: 7:00 AM Device Type: T3S ??Analysis Duration (TRT): 6h 53m ?? Est. Total Sleep Time: 5h 7m Position and Analysis Time Duration Percentage Supine (in TST): 13.8 m 4.5 % Non-Supine (in TST): 293.4 m 95.5 % Upright (in TRT): 105.9 m 25.6 % Movement (in TST): 10.6 m 3.4 % Invalid Data (Excluded): 0 m 0 % Respiratory Indices Index ?? Total ??Supine ??Non-supine Count Apneas + Hypopneas (AH): 58 /h 34.9 /h 59.1 /h 297 Apneas: 38.9 /h 21.8 /h 39.7 /h 199 Obstructive (OA): 37.3 /h 0 /h 39.1 /h 191 Mixed (MA): 0 /h 0 /h 0 /h 0 Central (CA): 1.6 /h 21.8 /h 0.6 /h 8 Hypopneas: ??19.1 /h 13.1 /h 19.4 /h 98 Respiration Rate (per m): 18 /m 13.8 /m 18.2 /m ?? Percentage of Sleep Duration Snore: 30.8 % 9.9 % 31.7 % 94.5 m Flow Limitation: 0 % 0 % 0 % 0 m Average Snore Volume 81 dB Percent of time greater than 80dB: Percent of 87.2 % Oxygen Saturation (SpO2) Total Supine ?Non-supine Oxygen Desaturation Index (ANU): 67 /h ??26.2 /h 68.9 /h Average SpO2: 85.6 % ??92.2 % 85.3 % Minimum SpO2: 59 % ??80 % 59 % SpO2 Duration < 90% 57.7 % (177.2m) 13.8 % 59.8 % SpO2 Duration ? 88% 53.2 % (163.5m) 11 % 55.2 % Pulse in TST ?? Quality ?? Average: 70.1 bpm Oximeter: 98.2 % Maximum: 103 bpm Nasal Cannula: 97.7 % Minimum: 48 bpm Abdomen RIP: 100 % Duration < 40 bpm: 0 m Thorax RIP: 100 % Duration > 100 bpm: 0.3 m ? Bulmaro Minaya MD [facility] * (ABNORMAL) IRON PLUS IRON BINDING CAP (08/09/2023 4:40 PM CDT) IRON 52 37 - 145 ug/dL 08/10/2023 1:59 PM CDT [facility] UIBC (UNSATURATED) 445(H) 112 - 347 ug/dL 08/10/2023 1:59 PM CDT [facility] IRON BINDING CAPACITY 497(H) 250 - 400 ug/dL 08/10/2023 1:59 PM CDT [facility] IRON,% SATURATION 10(L) 14 - 50 % 08/10/2023 1:59 PM CDT [facility] Blood BLOOD SPECIMEN / Unknown Venipuncture / Unknown 08/09/2023 4:40 PM CDT 08/09/2023 4:44 PM CDT Bulmaro Minaya MD CHEMISTRY [facility] [address] [place] [address], [place] * XR MAMMO RONEN BILAT SCREEN [[id number]] (08/04/2023 2:56 PM CDT) Anatomical Region Laterality Modality BREASTS, Breast Left, Breast Right Bilateral Mammography Impressions 08/04/2023 3:05 PM CDT ??There is no radiographic evidence for malignancy. ??Recommend annual mammograms. MAMMOGRAM ASSESSMENT: ??ACR 1 Negative PATIENTS: You will also receive a letter with your examination results in an easy to read format. ??If you have questions about your results, please contact your referring provider. Narrative 08/04/2023 3:05 PM CDT For Patients: As a result of the Century Cures Act, medical imaging exams and procedure reports are released immediately into your electronic medical record. You may view this report before your referring provider. If you have questions, please contact your health care provider. XR MAMMO RONEN BILAT SCREEN [[id number]] CLINICAL HISTORY: ??This is an asymptomatic 57 y.o. patient. INDICATION FOR EXAM: Mammogram Screening. TECHNIQUE: CC & MLO views were obtained. ??This study was evaluated with the assistance of Computer-Aided Detection. Breast Tomosynthesis was used in interpretation. COMPARISON FILM: Yes 05/06/22 [facility] 04/14/21 [facility] FINDINGS: ??The breasts have scattered areas of fibroglandular density. There are no dominant masses, suspicious micro calcifications or areas of architectural distortion. Sonia JONES MAMMO * XR SPINE LUMBAR 3 VIEWS (07/25/2023 12:45 PM CDT) Anatomical Region Laterality Modality LUMBAR SPINE Digital Radiogra phy 07/25/2023 1:07 PM CDT Narrative 07/25/2023 1:07 PM CDT For Patients: ??As a result of the Cures Act, medical imaging exams and procedure reports are released immediately into your electronic medical record. ??You may view this report before your referring provider. ??If you have questions, please contact your health care provider. Indication: Pain Technique: Three views Comparison: None Findings/Impression: Bones: No definite evidence of fracture with likely mild osteoporotic bowing of the inferior endplate of L1. Transitional appearance of the lumbar spine noted with the transitional vertebra labeled as S1 Disc spaces: Facet hypertrophy L5-S1. Soft tissues: Right upper quadrant surgical clips. Dictated by Myke Cespedes MD @ 07/25/2023 1:07:24 PM (Electronically Signed) Procedure Note Myke Cespedes MD - 07/25/2023 For Patients: As a result of the Cures Act, medical imagingexams and procedure reports are released immediately into your electronicmedical record. You may view this report before your referring provider.If you have questions, please contact your health care provider. Indication: Pain Technique: Three views Comparison: None Findings/Impression: Bones: No definite evidence of fracture with likely mild osteoporoticbowing of the inferior endplate of L1. Transitional appearance of thelumbar spine noted with the transitional vertebra labeled as S1 Disc spaces: Facet hypertrophy L5-S1. Soft tissues: Right upper quadrant surgical clips. Dictated by Myke Cespedes MD @ 07/25/2023 1:07:24 PM (Electronically Signed) Antonio Hurst MD GENERAL IMAGI NG * (ABNORMAL) LIPID PANEL W REFLEX MEASURED LDL (07/07/2023 2:58 PM PROGRAM DEVELOPMENT SPECIALIST) CHOLESTEROL,TOTAL 147 100 - 199 mg/dL 07/07/2023 4:38 PM PROGRAM DEVELOPMENT SPECIALIST [facility] Comment: Cholesterol, Total Reference Ranges Desirable <200 mg/dL Borderline 200-239 mg/dL High >=240 mg/dL TRIGLYCERIDES 277(H) <150 mg/dL 07/07/2023 4:38 PM PROGRAM DEVELOPMENT SPECIALIST [facility] HDL CHOLESTEROL 34(L) >40 mg/dL 4:38 PM PROGRAM DEVELOPMENT SPECIALIST [facility] NON-HDL CHOLESTEROL 113 <145 mg/dl 07/07/2023 4:38 PM PROGRAM DEVELOPMENT SPECIALIST [facility] CHOL/HDL RATIO 4.32 <4.50 07/07/2023 4:38 PM PROGRAM DEVELOPMENT SPECIALIST [facility] LDL CHOLESTEROL 58 <=130 mg/dL 07/07/2023 4:38 PM PROGRAM DEVELOPMENT SPECIALIST [facility] VLDL CHOLESTEROL 55(H) <=30 mg/dL 07/07/19 4:38 PM PROGRAM DEVELOPMENT SPECIALIST [facility] PROVIDER ORDERED STATUS RANDOM 07/07/2023 4:38 PM PROGRAM DEVELOPMENT SPECIALIST [facility] Blood BLOOD SPECIMEN / Unknown Venipuncture / Unknown 07/07/2023 2:58 PM PROGRAM DEVELOPMENT SPECIALIST 07/07/2023 2:58 PM PROGRAM DEVELOPMENT SPECIALIST Sonia JONES CHEMISTRY Performing Organization Address [facility]/State/ZIP Co de Phone Number [facility] [address] [phone] * (ABNORMAL) ANTI HCV (04/06/2022 11:55 AM PROGRAM DEVELOPMENT SPECIALIST) HEPATITIS C ANTIBODY Equivocal( A) Non-Reacti ve 04/09/2022 7:20 AM PROGRAM DEVELOPMENT SPECIALIST [facility] Comment:Equivocal; Reflexed to HCV RNA Quant (See separate report). Blood BLOOD SPECIMEN / Unknown Venipuncture / Unknown 04/06/2022 11:55 AM PROGRAM DEVELOPMENT SPECIALIST 04/06/2022 11:56 AM PROGRAM DEVELOPMENT SPECIALIST Sonia JONES SEND OUTS Performing Organization Address City/[facility]/ZIP Co de Phone Number [facility] [address] [place] [address], [place] * ANTI HIV 1/2 [40309.0] (04/06/2022 11:55 AM PROGRAM DEVELOPMENT SPECIALIST) HIV-1/HIV-2 ANTIBODY Non-Reacti ve Non-Reacti ve 04/08/2022 11:13 AM PROGRAM DEVELOPMENT SPECIALIST [facility] Comment:HIV-1 p24 and HIV-1/ HIV-2 Ab not detected. Blood BLOOD SPECIMEN / Unknown Venipuncture / Unknown 04/06/2022 11:55 AM PROGRAM DEVELOPMENT SPECIALIST 04/06/2022 11:56 AM PROGRAM DEVELOPMENT SPECIALIST Sonia Kimberly JONES SEND OUTS Performing Organization Address City/[facility]/ZIP Co de Phone Number [facility] [address] [place] [address], [place] * COLONOSCOPY (08/15/2018 11:49 AM CDT) 08/15/2018 11:4 9 AM CDT Narrative Transcriptions DockJuan Antonio MD - 08/15/2018 12:39 PM CDT Endoscopy Patient Name: Liz Phelps Procedure Date: 08/15/2018 Gender: Female Date of : 1965 Admit Type: Ambulatory Procedure: Colonoscopy Proceduralist: Juan Antonio Dykes MD Referring MD: Sonia Pérez Indications/Pre-Op Diagnosis: Screening for colorectal malignantneoplasm Medications: Monitored Anesthesia Care Procedure Description: The patient had risks, benefits and alternatives explained to andgave informed consent. The patient had a stable cardiopulmonary status and judged an adequate candidate for conscious sedation. The endoscope was passed through the anus and advanced to the cecum, identified by appendiceal orifice and ileocecal valve. Thecolonoscopy was performed without difficulty. The patient tolerated the procedure well. The quality of the bowel preparation was good. The ileocecal valve, appendiceal orifice, and rectum were photographed. Complications: No immediate complications. Estimated Blood Loss & Specimen: Estimated blood loss: none. Specimen collected: None Findings: The colon appeared normal. The perianal and digital rectal examinations were normal. Impressions/Post-Op Diagnosis: - The colon appeared normal. - No specimens collected. Recommendation: - Repeat colonoscopy in 10 years for surveillance. Juan Antonio Dykes MD 08/15/2018 12:39:33 PM This report has been signed electronically. Note Initiated On: 08/15/2018 11:49 AM Total Procedure Duration Time 0 hours 17 minutes 7 seconds Scope Withdrawal Time 0 hours 6 minutes 46 seconds Juan Antonio Dykes MD PROCEDURE ORD * BEAVER TRAPPER THIN PREP PAP SCREEN IMAGED [[id number]] (07/19/2018 3:46 PM PROGRAM DEVELOPMENT SPECIALIST) Case Report Gynecologic Cytology Report ? Case: [id number] ? Authorizing Provider: ??Sonia Servin, ??Collected: ? 07/19/2018 1546 ? [place] ? Ordering Location: ? [facility] ? Received: ?07/19/2018 1546 ? Clinic ? First Screen: ?Myke Alex ? Specimen: ?BEAVER TRAPPER ThinPrep Vial Screening, Cervical ? 07/26/2018 1:35 PM CDT [facility] INTERPRETATION/ RESULT NEGATIVE FOR INTRAEPITHELIAL LESION OR MALIGNANCY (NIL) (none) 07/26/2018 1:35 PM CDT [facility] IMEN ADEQUACY Satisfactory for evaluation No endocervical component seen 07/26/2018 1:35 PM CDT [facility] HPV REQUEST HPV and PAP 07/26/2018 1:35 PM CDT [facility] Date of years 07/26/2018 1:35 PM CDT [facility] Last Pap Date 201407/26/2018 1:35 PM CDT [facility] Last Pap Result NIL 9 1:35 PM CDT [facility] Abnormal Pap or [place] Bx in last 5 years No 07/26/2018 1:35 PM CDT [facility] Menstrual Status Hormonally Suppressed 07/26/2018 1:35 PM CDT [facility] [place] Bx Done Today No 07/26/2018 1:35 PM CDT [facility] Additional Information None given 07/26/2018 1:35 PM T [facility] Automated Review Successful 07/26/2018 1:35 PM T [facility] Comment:Specimen processed s uccessfully by automated music theory professor device, [employer] Imaging System, [employer] ANCILLARY TESTING BEAVER TRAPPER HPV Ordered, Please see separate report 07/26/2018 1:35 PM T [facility] Note The pap test is a screening technique, not a diagnostic procedure. ??It is used primarily to screen for squamous cancers and precursor lesions. ??Published studies have shown that it is subject to both false negative and false positive results. ??The pap test should not be used as the sole means to diagnose or exclude pre-malignant and malignant lesions. Cytology is screened and interpreted at [facility] - [address], [place] [address] and [facility] - [address]; [place] [address] and [facility] - [address]; [place] [address] [address]; [place] [address] 07/26/2018 1:35 PM T [facility] Other (Cervical) Non-Blood / Unknown 07/19/2018 3:46 PM PROGRAM DEVELOPMENT SPECIALIST 07/19/2018 3:46 PM PROGRAM DEVELOPMENT SPECIALIST Sonia JONES PATHOLOGY/CYTOLOGY [facility] [address] [place] [address], [place] from Last 3 Months or Most Recently Relevant to Health Maintenance Advance Directives * Full Code (Latest Code Status on File) Date Activated Date Inactivated Comments 08/24/2023 2:10 AM 08/24/2023 7:16 PM Question Answer Comments Code Status Discussion: Reviewed Preferences * Full Code Date Activated Date Inactivated Comments 11/30/2021 4:08 PM 12/01/2021 9:22 PM Question Answer Comments Code Status Discussion: Reviewed Preferences * Full Code Date Activated Date Inactivated Comments 02/13/2020 11:50 PM 02/15/2020 6:46 PM Question Answer Comments Code Status Discussion: Not Discussed * Full Code Date Activated Date Inactivated Comments 08/15/2018 10:18 AM 08/15/2018 3:08 PM * Full Code Date Activated Date Inactivated Comments 11/24/2016 5:58 PM 11/25/2016 4:47 PM Care Teams Security Systems Integrator Relationship Specialty Start Date End Date Sonia Pérez PA [address] [place] [address] PCP - General Internal Medicine 11/24/16
--- OUTSIDE RECORDS SUMMARY | 2023-10-10 21:00 | XMS_ITS | Clinical Summary ---
Author Organization [employer] Address [address] [place] [address] Care Team Providers Care Labor Conciliator Name Role Phone Vickie Pérez PA-C Primary Care Provider [phone] Source Comments You are receiving this document as you are listed as the primary care provider,follow-up provider, or the patient has been referred to you for consultation.This is in compliance with the Medicare and[facility] E[facility] Incentive Program,which states Providers who transition their patient to another setting of careor provider of care or refers their patient to another provider of care shouldprovide summary care record for each transition of care or referral. [employer] Allergies Active Allergy Reactions Criticality Noted Date Comments Atorvastatin 09/22/2016 Other reaction(s): Myalgia Hydromorphone Other, see comments 12/11/2021 Nausea/Vomiting. Pt stated was admitted to hospital after taking Dilaudid due to uncontrollable N/V Dulaglutide Gastrointestinal,Kurt s ea 11/20/2018 Exenatide Other, see comments Medium 08/04/2015 PN: local site reaction of skin breakdown, severe itching, and pain. Medications Medication Sig Dispensed Refills Start Date End Date Status omeprazole ([facility] OMEPRAZOLE) 20 MG enteric coated tablet Take 1 tablet by mouth daily (every 24 hours). LW Comment:flex spending account LW Addl Instr:Indicated for: Acid Reflux 90 3 08/18/2010 Active Multiple Vitamins-Minerals (MULTIVITAMIN OR) Take 1 tablet by mouth daily (every 24 hours). 100 04/25/2009 Active omega-3 fatty acids (MAXEPA,FISHOIL) 1000 MG capsule daily (every 24 hours). 04/25/2009 Active aspirin EC 81 MG enteric coated tabletIndications:C hronic rhinitis Take 1 tablet by mouth daily (every 24 hours). 100 tablet 13 05/07/2013 Active blood glucose test stripIndications:Di abetes type 2, uncontrolled Use 1 strip as instructed 3 times daily. 100 strip 6 12/02/2014 Active lancets (ACCU-CHEK SOFTCLIX) Use as instructed 3 times daily. 100 each PRN 12/03/2014 Active ACCU-CHEK FARTUN PLUS meter Use as instructed as needed for High Blood Sugar. 1 kit 0 12/03/2014 Active cyclobenzaprine (FLEXERIL) 5 MG tabletIndications:R ib contusion, right, initial encounter Take 1 tablet by mouth 3 times daily as needed for Muscle spasms. 30 tablet 0 11/24/2015 Active metFORMIN (GLUCOPHAGE XR) 500 MG 24 hour release tabletIndications:T ype 2 diabetes mellitus, controlled ([facility]) Take 3 tablets by mouth daily (every 24 hours). 270 tablet 1 12/01/2015 Active dulaglutide (TRULICITY) 0.75 MG/0.5ML injection penIndications:Type 2 diabetes mellitus, controlled ([facility]) Inject 1 Pen subcutaneously once a week. 10 Pen 0 02/03/2016 Active gabapentin (NEURONTIN) 400 MG capsuleIndications: Peripheral polyneuropathy Take 400 mg in the morning and 800 mg in the evening. 270 Cap 3 03/15/2016 Active TRULICITY 0.75 MG/0.5ML SOPN INJECT 0.75MG SUBCUTANEOUSLY ONCE A WEEK 2 mL 2 05/06/2016 Active Additional Information Patient not taking.Reported on 07/19/2022 lisinopril (ZESTRIL) 20 MG tablet TAKE 1 TABLET BY MOUTH EVERY DAY 90 Tab 1 07/10/2016 Active insulin pen needle (BD PEN NEEDLE JUHI U/F) 32G X 4 MM Inject subcutaneously two times a day. 200 Each 3 07/21/2016 Active ACCU-CHEK FARTUN PLUS test strip Use to test three times daily before meals. Code E11.9 300 Strip 3 08/03/2016 Active DULoxetine (CYMBALTA) 30 MG capsule Take 30 mg by mouth. 10/13/2016 Active temazepam (RESTORIL) 15 MG capsule Take 15 mg by mouth. 10/05/2016 Active rosuvastatin (CRESTOR) 20 MG tablet Take 20 mg by mouth daily at bedtime. 09/22/2016 Active LORazepam (ATIVAN) 0.5 MG tablet Take 0.5 mg by mouth. 10/05/2016 Active desvenlafaxine (PRISTIQ) 50 MG 24 hour release tablet Take 100 mg by mouth. 10/05/2016 Active eszopiclone (LUNESTA) 2 MG tablet Take by mouth daily at bedtime. Active fluticasone (FLONASE) 50 MCG/ACT nasal solutionIndications :Chronic rhinitis SHAKE LIQUID AND USE 2 SPRAYS IN EACH NOSTRIL DAILY 48 g 04/05/2017 Active ALBUterol sulfate HFA 108 (90 Base) MCG/ACT inhaler Inhale 1-2 Puffs. 09/25/2018 Ac tive Xkscbih-Cjcdnnyzs-Q inc 333-133-5 MG Take 1 Tablet by mouth. 02/15/2017 Active Coenzyme Q10 100 MG Take 100 mg by mouth. 12/01/2016 Active folic acid 1 MG tablet Take 1 mg by mouth. 12/01/2016 Activ e levonorgestrel (MIRENA) 20 MCG/24HR IUD 1 Device by Intrauterine route. 11/03/2016 Active meclizine (ANTIVERT) 12.5 MG tablet Take 12.5 mg by mouth. 04/23/2019 Active metoclopramide (REGLAN) 10 MG tablet Take 10 mg by mouth. Active kwrym-8-nimu ethyl esters (LOVAZA) 1 g capsule Take 1 g by mouth. 04/25/2009 Active ondansetron (ZOFRAN-ODT) [address] 4 mg under tongue. 04/23/2019 Active prochlorperazine (COMPAZINE) 5 MG tablet Take 5-10 mg by mouth. 04/19/2019 Active promethazine (PHENERGAN) 25 MG tablet Take 1 Tablet by mouth. 04/27/2018 Active raNITIdine (ZANTAC) 75 MG tablet Take 75 mg by mouth. Active LANTUS SOLOSTAR 100 UNIT/ML pen Inject subcutaneously. 06/10/2021 Active bisacodyl (DULCOLAX) 5 MG enteric coated tablet Take 1 Tablet (5 mg) by mouth daily as needed for Constipation (pain medication can cause constipation). 30 Tablet 11/28/2021 Active VICTOZA 18 MG/3ML SOPN injection Inject 1.8 mg subcutaneously daily. 11/22/2021 Active acetaminophen (TYLENOL) 500 MG tablet Take 1 Tablet (500 mg) by mouth every 4 hours as needed for Pain (Mild Pain). Maximum acetaminophen dose is 4000 mg in 24 hours 100 Tablet 11 12/14/2021 Active ibuprofen (MOTRIN) 200 MG tablet Take 2 Tablets (400 mg) by mouth every 6 hours as needed for Pain (Mild Pain). This may be safely mixed with the prescription pain medications (oxycodone, hydrocodone or tramadol.)?? This may also be safely mixed with acetaminophen. 100 Tablet 12/14/2021 Active hydrOXYzine HCl (ATARAX) 25 MG tablet Take 1 Tablet (25 mg) by mouth every 6 hours as needed for Itching, Anxiety or Pain. 15 Tablet 12/14/2021 Active melatonin 3 MG tablet Take 1 Tablet (3 mg) by mouth at bedtime as needed for Insomnia. 100 Tablet 12/14/2021 Active HYDROcodone-acetami nophen (NORCO) 5-325 MG tablet Take 1-2 Tablets by mouth every 4 hours as needed for Pain. Maximum acetaminophen dose is 4000 mg in 24 hours. 15 Tablet 12/23/2021 Active ARIPiprazole (ABILIFY) 5 MG tablet Take 1 Tablet (5 mg) by mouth daily. 07/19/2022 Active cephalexin (KEFLEX) 500 MG capsule Take 1 Capsule (500 mg) by mouth three times a day. 07/13/2022 Active ferrous sulfate 325 (65 Fe) MG tablet OTC Iron-Dosage unsure One tablet once daily 04/06/2022 Active neomycin-polymyxin- HC (CORTISPORIN) 3.5-61278-[address] in ear(s). 06/25/2022 Active omeprazole (PRILOSEC) 20 MG capsule Take 1 Capsule (20 mg) by mouth. Active Active Problems Patient Care Coordination No te Formatting of this note migh t be different from the original. Invasive Cardiovascular Technologist: DEBI Yeboah [phone] Care coordination focus: T2DM self-management and medication adjustment, financial resources Living situation: lives at home with spouse and children Important notes: daughter is disabled Problem Noted Date Diagnosed Date CAREPLAN: Restriction 04/29/2022 Overview: RECOMMEND CHECKING A MULTI-STATE PHARMACY QUERY BEFORE CONSIDERING ANY ADDITIONAL CONTROLLED SUBSTANCES FOR THIS PATIENT [id number] PMI: [id number] : 1965 Restricted Member Restriction Begin Date: 04/30/2022 Restriction End Date: 04/30/2024 Member is Restricted to accessing the following providers only: PCP: VICKIE PÉREZ P[facility]: [facility] Psychiatry: SERVICE, VICENTE TRACY UC: [facility]: [facility] Pharmacy: [facility] #[id number] Pharmacy Address: [address] [place] [address] [place] [address] Pharmacy [facility] [place], [place], , [id number] Mbr may access any contracted chemical/mental health provider w/o a referral from their Primary care physician but may require authorization from the dept - [phone] or fax [phone]. The following services are not restricted: routine screenings (ex. mammogram and annual PAP), dental and eye appointments, brassiere cup mold cutter visits and DME (Durable Medical Equipment). Referral is needed from designated PCP in order to access any other providers including acupuncture and chiropractic, regardless of plan type. ALL CONTROLLED MEDICATIONS FOR OUTPATIENT USE MUST BE PRESCRIBED BY (provider name) - For EXCEPTIONS AND/OR REFERRALS - CONTACT [facility] MANAGER OF RECRUITING. Left elbow pain 12/22/2021 Overview: Added automatically from request for surgery [id number] Dislocation of left elbow 11/24/2021 Overview: Added automatically from request for surgery [id number] Menorrhagia with regular cycle 03/17/2016 Mixed anxiety depressive disorder 07/30/2015 Morbid obesity with BMI of 40.0-44.9, adult 08/2013 Controlled type 2 diabetes m ellitus without complication, with long-term current use of insulin 04/17/2014 GERD (gastroesophageal reflux disease) 3 Essential hypertension 08/18/2010 Overview: Hypertension Major depressive disorder, single episode 2005 Overview: LW Onset: ; Depression Major 1episode NOS Chronic rhinitis 08/03/2005 Overview: Rhinitis Chronic Obstructive sleep apnea 08/03/2005 Hyperlipidemia 02/11/2004 Esophageal reflux 02/11/2004 Overview: Gastroesophageal Reflux Disease Resolved Problems Problem Noted Date Diagnosed Date Resolved Date Type 2 diabetes mellitus, controlled 05/28/2015 03/17/2016 Health fdc, active care coordination 02/04/2015 10/30/2018 Overview: Invasive Cardiovascular Technologist: DEBI Yeboah [phone] Care coordination focus: T2DM self-management and medication adjustment, financial resources Living situation: lives at home with spouse and children Important notes: daughter is disabled See care plan under Chart Review > Misc Reports > AMB [facility] CARE PLAN REPORT Closed left fibular fracture 12/03/2013 02/19/2014 Type 2 diabetes mellitus, controlled 08/18/2010 04/17/2014 Overview: DM Type2 Dysplasia of cervix (uteri) 02/11/2004 02/19/2014 Overview: LW Modifier: cone biopsy 06-12-2003 LW Onset: 2002 ; AJ Squamous Intraepith Lesion Cervix Immunizations Name Administration Dates Next Due Flu Vac Preserv Free (3+yrs) 02/18/2012, 02/05/2009,03/16/2008,2005,02/13/2005,02/11/2004 Influenza IIV4 (Quadrivalent ) 0.5mL (51891) 03/15/2016,02/22/2015,02/19/2014,2012 Influenza, Unspecified Formulation 02/13/2003 PPSV23 (Pneumovax) 02/05/2009 [...] Smoking Tobacco: Never Smokeless Tobacco: Never Tobacco Cessation:Counseling Given: Not Answered Comments:Quit smoking: Alcohol Use Standard Drinks/Week Comments Yes 0 (1 standard drink = 0.6 oz pure alcohol) Alcoholic Drinks/day: Amount:1-2 drinks; Freq:2-4/Month ; Sex and Gender Information Value Date Recorded Sex Assigned at Not on file Gender Identity Not on file Sexual Orientation Not on file Last Filed Vital Signs [...] 12/23/2021 10:10 AM CDT Plan of Treatment Health Maintenance Due Date Last Done Comments Colon Cancer Screening Plan Due 1965 Hep C Screening (Preventive Services) 1965 HepB (1) 1985 Diabetes: Foot Exam 02/27/2016 02/26/2015 (Completed ) Diabetes: Creatinine 11/30/2016 12/01/2015, 01/22/2015, 04/17/2014, Additional history exists Diabetes: Urine Microalbumin 11/30/2016 12/01/2015, 01/22/2015, 04/17/2014, Additional history exists Adult Preventive Visit 03/15/2017 03/15/2016 Cervical Cancer Screening 02/24/20182014, 02/24/2015 (Completed), 02/19/2014, Additional history exists Diabetes: Lipid Panel 11/30/2020 12/01/2015 , 01/22/2015, 04/17/2014, Additional history exists Zoster/Shingles (2 of 2) 05/25/2021 03/30/2021 Mammogram 04/14/2022 04/14/2021, 07/16, 08/14/2015 (Completed), Additional history exists Diabetes: HGBA1C 10/10/2022 07/13/2022, , 04/06/2022, Additional history exists COVID-19 Vaccine ( season) 2023 07/13/2021, 08/20/2020, 07/24/2020 Diabetes: Eye Exam 07/20/2023 07/19/2022, 0 07/19/2022, 06/25/2021, Additional history exists Influenza (Season Ended) 2024 022, 03/30/2021, 02/21/2020, Additional history exists DTaP/Tdap/Td (3 - Tdap) 09/17/2026 09/18/19 17, 11/04/2006, 01/21/1997 HIV Screening (Preventive Services) Completed 04/06/2022 Pneumococcal Completed 04/06/2022, 02/05/2009 HepA Aged Out No longer eligi ble based on patient's age to complete this topic Hib Aged Out No longer eligi ble based on patient's age to complete this topic IPV (Polio) Aged Out No longer eligi ble based on patient's age to complete this topic MCV4 Aged Out No longer eligi ble based on patient's age to complete this topic Medical Devices Implanted Type Area Automation Engineering Manager Device Identifier Shelf Expiration Date Model / Serial / Lot Sut [place] Biocompos 2.9x12.5 - [id number] Implanted:Qty: 1 on 11/28/2021 by Vanna Ulloa MD at [facility] DEVICE Left: ELBOW [employer] 05/15/2023 AR-2923BC / / [id number] Sut [place] Biocompos 2.9x12.5 - [id number] Implanted:Qty: 1 on 11/28/2021 by Vanna Ulloa MD at [facility] DEVICE Left: ELBOW [employer] 05/15/2023 AR-2923BC / / [id number] Sut [place] Biocompos 2.9x12.5 - [id number] Implanted:Qty: 1 on 12/14/2021 by Vanna Ulloa MD at [facility] DEVICE Left: [employer]OW [employer] 04/14/2022 AR-2923BC / 0 / [id number] [place] [employer] Dx - [id number] Implanted:Qty: 1 on 12/14/2021 by Vanna Ulloa MD at [facility] DEVICE Left: [employer]OW [employer] 08/13/2026 AR-8990ST / 0 / [id number] Dlke-Uzx-Drh - [id number] Implanted:Qty: 1 on 12/14/2021 by Vanna Ulloa MD at [facility] Left: ELBOW IJS-ELB-BPA / 0 / 0 Description:[employer] - IJS-E Base Plate Assembly [id number] - [id number] Implanted:Qty: 1 on 12/14/2021 by Vanna Ulloa MD at [facility] Left: ELBOW IJS-EAP-255 00 / 0 / 0 Description:[employer] - IJS-E [place] Pin 2.5mm x 50mm [id number] s - [id number] Implanted:Qty: 1 on 12/14/2021 by Vanna Ulloa MD at [facility] Left: ELBOW PANL-28000- IJS / 0 / 0 Description:[employer] - Screw, Polyaxial Non Locking, 3.5mm x 22mm, Ti [id number]-Dn s - [id number] Implanted:Qty: 1 on 12/14/2021 by Vanna Ulloa MD at [facility] Left: ELBOW PANL-24491- IJS / 0 / 0 Description:[employer] [id number] Screw, Polyaxial Non Locking 3.5mm x 24mm Ti S0 - [id number] Implanted:Qty: 1 on 12/14/2021 by Vanna Ulloa MD at [facility] Left: ELBOW PANL-08555- IJS / 0 / 0 Description:[employer] [id number] Screw, Polyaxial Non Locking 3.5mm x 34mm, Ti Bhaw-Ria-43399 - [id number] Implanted:Qty: 1 on 12/23/2021 by Vanna Ulloa MD at [facility] Left: ELBOW IJS-EAP-255 00 / 0 / 0 Description:IJS [place] Pin 2.5 [id number] Skeletal Dynamics Cdzh-Jca-Oys - [id number] Implanted:Qty: 1 on 12/23/2021 by Vanna Ulloa MD at [facility] Left: ELBOW IJS-ELB-BPA / 0 / 0 Description:Sleletal Dynamic s IJS-E Base Plate Assembly Procedures Procedure Name Priority Date/Time Associated Diagnosis Comments HGB A1C (EXTERNAL RESULT) Routine 07/13/2022 3:02 PM BODY BUILDER ALBUMIN/CREAT RATIO Routine 12/01/2015 1 1:22 AM CDT Type 2 diabetes mellitus, controlled ([facility]) CREATININE / GFR Routine 12/01/2015 11:1 6 AM CDT Essential hypertension LIPID PANEL & DIRECT LDL (IF NEEDED) Routine 12/01/2015 11:16 AM CDT Hyperlipidemia MM MAMMOGRAM SCREENING BILAT W CAD Routine 08/14/2015 12:00 PM CDT Breast cancer screening ANATOMICAL PATH LIQUID BASED Routine 02/24/2015 11:45 AM CDT from Last 3 Months or Most Recently Relevant to Health Maintenance Results * Microalb/Creat Ratio (12/01/2015 11:22 AM CDT) Microalbumin Urine 38.0 mg/L HP CONVERSION U Creat Random 242 mg/dL HP CONVERSION Microalbumin/Crea tinine Ratio 15.7 0.0 - 30.0 HP CONVERSION 12/01/2015 11:2 2 AM CDT 12/01/2015 2:44 PM CDT Narrative HP CONVERSION - 12/01/2015 3:35 PM CDT Performed at [facility], [address] [place] [address] CLIA number [id number] Antoinette Leal APRN, CNP LAB_1 Performing Organization Address [facility] de Phone Number HP CONVERSION * (ABNORMAL) Lipid Panel and Direct LDL(If Needed) (12/01/2015 11:16 AM CDT) Cholesterol 109 0 - 199 mg/dL HP CONVERSION Triglycerides 108 4 - 149 mg/dL HP CONVERSION HDL Cholesterol 31(L) >39 mg/dL HP CONVERSION Cholesterol/HDL Ratio Screen 3.5 HP CONVERSION LDL Calculated 56 19 - 130 mg/dL HP CONVERSION Hours Fasting 10 HP CONVERSION 12/01/2015 11:1 6 AM CDT 12/01/2015 6:14 PM CDT Narrative HP CONVERSION - 12/01/2015 7:08 PM CDT Performed at [facility], [address] [place] [address] CLIA number [id number] Antoinette Leal APRN, CNP LAB_1 Performing Organization Address [facility] de Phone Number HP CONVERSION * Creatinine / GFR (12/01/2015 11:16 AM CDT) Creatinine Serum 0.90 0.55 - 1.02 mg/dL HP CONVERSION Est GFR Am >60 >60 mL/min/1.7 3m2 HP CONVERSION Est GFR Non-Afr Am >60 >60 mL/min/1.7 3m2 HP CONVERSION Comment: Normal>60, moderate decrease 30 - 59, severe decrease 15 - 29, renal failure <15 mL/min/1.73 m2 NOTE: ??Choose the eGFR result above appropriate for the race of the patient. 12/01/2015 11:1 6 AM CDT 12/01/2015 6:14 PM CDT Narrative HP CONVERSION - 12/01/2015 7:08 PM CDT Performed at [facility], [address] [place] [address] CLIA number [id number] Antoinette Leal APRN, CNP LAB_1 HP CONVERSION * MM Mammogram Screening Bilat W CAD (08/14/2015 12:00 PM CDT) Anatomical Region Laterality Modality Breast Bilateral Mammography Impressions 08/14/2015 1:19 PM CDT : BI-RADS 1 Negative (overall) Follow Up Mammogram in 1 year - Bilateral The results and recommendations of this examination will be communicated to the patient by the [facility] and we will attempt to schedule any recommended imaging follow up with the patient. Narrative 08/14/2015 1:19 PM CDT Compared to: 03/15/2014 MM Mammogram Screening Bilateral W Cad, 01/30/2007 MM MAMMOGRAM SCREENING W CAD, 05/29/2003 MM MAMMOGRAM SCREENING W CAD Bilateral Breast Findings: Bilateral digital screening mammogram was performed. There are scattered areas of fibroglandular density in the breasts. No significant mass, calcifications or other abnormalities are seen in either breast. Procedure Note Naun Montgomery MD - 01/14/2016 Compared to: 03/15/2014 MM Mammogram Screening Bilateral W Cad,01/30/2007 MM MAMMOGRAM SCREENING W CAD, 05/29/2003 MM MAMMOGRAM SCREENING W CAD Bilateral Breast Findings: Bilateral digital screening mammogram was performed. There are scattered areas of fibroglandular density in the breasts. No significant mass, calcifications or other abnormalities are seen in either breast. IMPRESSION : BI-RADS 1 Negative (overall) Follow Up Mammogram in 1 year - Bilateral The results and recommendations of this examination will be communicated to the patient by the [facility] and we will attempt to schedule any recommended imaging follow up with the patient. Antoinette Leal APRN, CNP RAD TERESA * Pap Smear (02/24/2015 11:45 AM CDT) 02/24/2015 11:4 5 AM CDT Narrative HP CONVERSION - 02/28/2015 2:40 PM CDT FINAL GYNECOLOGICAL CYTOLOGY REPORT Pathology #: [id number] ?Date Obtained: 02/24/2015 ? Date Received: 02/25/2015 INTERPRETATION/RESULTS: Negative for Intraepithelial Lesion or Malignancy. SPECIMEN ADEQUACY: Satisfactory for Evaluation. ??No endocervical cells/transformation zone component present. Verified on 02/28/2015 ??by MEGAN JONAS(ASCP) (electronic signature) CLINICAL NOTES: ?Abnormal bleeding: No, LMP: 02/13/15, Menstrual status: None ?Apply, Current form of therapy: Hormone Therapy LIQUID BASED PAP SMEAR SPECIMEN TYPE: ?ROUTINE CERVICAL PAP TEST PLEASE NOTE: The pap smear is a screening test designed to aid in the detection of cervical cancer and its precursor lesions. It is not a diagnostic procedure and should not be used as the sole means of detecting cervical cancer. Both false-positive and false-negative reports may occur. ? End of Report Performed at [facility], [address] [place] [id number] Transcriptions 06/24/2016 1:41 AM CSTNotes Recorded by [...] test results, callCervical Cancer Screening and Management [phone],Kaila Pichardo RN on behalf ofDr. Diana Schumacher, Medical DirectorParwilmer PhelanChula Cervical Cancer Screening and Management Antoinette Leal OFFICE ASSISTANCE, RECEIVING CLERK LAB_1 HP CONVERSION from Last 3 Months or Most Recently Relevant to Health Maintenance Advance Directives * Full Code (Latest Code Status on File) Date Activated Date Inactivated Comments 12/23/2021 12:28 PM 12/23/2021 7:04 PM * Full Code Date Activated Date Inactivated Comments 12/14/2021 4:28 PM 12/14/2021 8:34 PM * Full Code Date Activated Date Inactivated Comments 11/28/2021 11:46 AM 11/28/2021 5:01 PM * Full Code Date Activated Date Inactivated Comments 11/28/2021 9:46 AM 11/28/2021 11:46 AM Care Teams Labor Conciliator Relationship Specialty Start Date End Date Vickie Pérez PA-C [address] [facility] [address] [place] [address] PCP - General Physician Clinical Nutrition Manager 01/10/17
== END 2023-10-10 20:57 | disposition home or self-care (01) ==
LOC: SLEEP 20:56
PROVIDERS: Visit Provider Internal Medicine
DX: G47.33 Obstructive sleep apnea (adult) (pediatric) (principal)
CPT/HCPCS: 95811